=== PATIENT | male | born 1930 | race Hispanic/Latino ===

== ENCOUNTER 2017-01-26 11:47 | Emergency (ER) | payer MEDICARE ==
[2017-01-26 12:15] VITALS: TEMP 97.8
[2017-01-26] MEDS ORDERED: Sodium Chloride 0.9% 500 ML IV ONE ×2 (12:34→12:41)
--- NOTE | 2017-01-26 12:34 | C.PDOC ---
History Of Present Illness Pt is an 86 yr old male with PMHx of diabetes, prostate, HTN, dementia and brain shunt, brought in via BLS, presents to the ER s/p fall in the bathroom. Patient states he was taking a shower when his non slip mat slipped, and he fell to the ground and was unable to get up. Patient reports of pain to the inner left thigh and right elbow with an abrasion. Patient denies LOC, chest pain, SOB, nausea, vomiting, abdominal pain, diarrhea, headache, weakness or numbness. Pt did not hit his head. No neck pain. PMD: Doctor at the [facility] . 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 Cardiovascular: Negative for: Chest Pain Respiratory: Negative for: Shortness of Breath Gastrointestinal: Negative for: Nausea, Vomiting, Abdominal Pain, Diarrhea Musculoskeletal: Positive for: Other ((+) Right elbow pain. Left inner thigh pain. ) Neurological: Negative for: Weakness, Numbness, Headache Physical Exam - Physical Exam Appears: Non-toxic, No Acute Distress Skin: Warm, Dry, No Rash Head: Atraumatic, Normacephalic, No Tenderness Eye(s): bilateral: Normal Inspection, EOMI Ear(s): Bilateral: Normal Nose: Normal Oral Mucosa: Moist Tongue: Normal Appearing Lips: Normal Appearing Throat: Normal Neck: Normal, Normal ROM, No Midline Cervical Tenderness, Supple Lymphatic: Deferred Chest: Symmetrical, No Tenderness Cardiovascular: Rhythm Regular, No Murmur Respiratory: Normal Breath Sounds, No Rales, No Rhonchi, No Stridor, No Wheezing Extremity: Normal ROM, No Swelling, Other (Right Elbow - Abrasion; no bony tenderness; good ROM RUE; no neurovascular deficits. Left Inner Thigh - Contusion; no bony tenderness to LLE; ROM intact to LLE. Pelvis nontender ) Pulses: Left Radial: Normal, Right Radial: Normal Neurological/Psych: Oriented x3, Normal Speech, Normal Motor, Normal Sensation ED Course And Treatment - Laboratory Results Result Diagrams: 01/26/17 13:06 01/26/17 13:06 O2 Sat by Pulse Oximetry: 98 - Other Rad CXR X-Ray: Viewed By Me, Read By Radiologist Interpretation: PROCEDURE: CHEST RADIOGRAPH, 1 VIEW. HISTORY: Fall; part of trauma series imaging. COMPARISON: None available. FINDINGS: LUNGS: Mild venous congestion. Patchy left basilar airspace opacity. Right midlung atelectasis. PLEURA: No pneumothorax or pleural fluid seen. CARDIOVASCULAR: Cardiomegaly. OSSEOUS STRUCTURES: Degenerative changes. VISUALIZED UPPER ABDOMEN: Normal. OTHER FINDINGS: None. IMPRESSION: Mild venous congestion. Patchy left basilar airspace opacity. Right midlung atelectasis. X-Ray - Hip with Pelvis X-Ray: Viewed By Me, Read By Radiologist Interpretation: Pelvis and left hip two views. History: Fall. Comparison: None available. Findings: Left hip: Moderate degenerative changes at the left hip joint space with subchondral sclerosis and osteophytosis. Productive change and or ossific density seen superior to the left greater trochanter which may represent heterotopic bone versus avulsion injury, possibly chronic. Remainder of the proximal left femur appears grossly preserved without evidence of acute displaced fracture or dislocation. Degenerative changes are noted within the lower lumbar spine and right hip with some productive change at the right greater trochanter and bilateral pubic bones. Impression: Moderate degenerative changes at the left hip joint space with subchondral sclerosis and osteophytosis. Productive change and or ossific density seen superior to the left greater trochanter which may represent heterotopic bone versus avulsion injury, possibly chronic. Remainder of the proximal left femur appears grossly preserved without evidence of acute displaced fracture or dislocation. Degenerative changes are noted within the lower lumbar spine and right hip with some productive change at the right greater trochanter and bilateral pubic bones. If pain persists, consider MRI. - CT Scan/US CT - Pelvis Other Rad Studies (CT/US): Read By Radiologist, Radiology Report Reviewed CT/US Interpretation: CT bony pelvis. History: Blunt trauma. Evaluate for fracture. Comparison: X-ray dated 01/26/2017. Technique: Multiple contiguous axial images were performed through the bony pelvis without the use of intravenous contrast. Subsequently, sagittal and coronal reformatted images were obtained. This CT exam was performed using one or more of the following dose reduction techniques: Automated exposure control, adjustment of the mA and/ or kV according to patient size, and/or use of iterative reconstruction technique. Findings: Left hip: Moderate degenerative changes of the left hip joint space with joint space narrowing and subchondral sclerosis. 8 millimeter lobulated ossific density seen at the superior aspect of the left greater tuberosity which may represent heterotopic bone and or productive change versus small avulsion fragment. Osteophytosis at the medial left femoral head. No evidence of acute displaced fracture or dislocation of the remainder of the left proximal femur. Subchondral cyst formation and/or intraosseous geodes versus ganglion seen within the posterior left bony acetabulum. Left hip joint effusion noted. Incidentally noted is a prominent low-attenuation focus extending along the left iliopsoas tendon from the level of the muscle belly. This may represent a prominent iliopsoas bursitis. This would be better evaluated with MRI if clinically indicated. Evaluation of the remainder of the bony pelvis demonstrates severe degenerative changes at the L5-S1 disc space with joint space narrowing, subchondral sclerosis, and osteophytosis. Posterior disc osteophyte complex at the L5-S1 level. Mild angulation noted at the level of the coccyx. Evaluation of the right hip demonstrates moderate degenerative changes of the right hip with joint space narrowing and subchondral sclerosis. Associated osteophytosis. Heterotopic bone posterior to the proximal right femur. No evidence of acute displaced fracture dislocation in the remainder of the bony pelvis. Mild patchy sclerosis noted at the bilateral SI joints. At the level of the right iliopsoas tendon, there is an additional milder low-attenuation collection noted extending from the muscle belly along the distal tendon which may also represent a smaller iliopsoas bursitis. Again this would be better evaluated with MRI. Colonic diverticulosis is noted. Prominent and heterogeneous prostate with associated calcifications which measures up to 5 centimeters. Tubing and or wiring projects over the right lower abdomen extending into the intra-abdominal cavity , clinical correlation. Calcification and plaque within the aorta and iliac vessels. Impression: 1. Moderate degenerative changes of the left hip joint space with joint space narrowing and subchondral sclerosis. 8 millimeter lobulated ossific density seen at the superior aspect of the left greater tuberosity which may represent heterotopic bone and or productive change versus small avulsion fragment. Osteophytosis at the medial left femoral head. No evidence of acute displaced fracture or dislocation of the remainder of the left proximal femur. Subchondral cyst formation versus intraosseous geode and or ganglion seen within the posterior left bony acetabulum. Left hip joint effusion noted. Correlation with MRI may be helpful if clinically indicated. 2. Incidentally noted is a prominent low-attenuation focus extending along the left iliopsoas tendon from the level of the muscle belly. This may represent a prominent iliopsoas bursitis. This would be better evaluated with MRI if clinically indicated. 3. Severe degenerative changes at the L5-S1 disc space with joint space narrowing, subchondral sclerosis, and osteophytosis. Posterior disc osteophyte complex at the L5-S1 level. Mild angulation noted at the level of the coccyx. 4. Moderate degenerative changes of the right hip with joint space narrowing and subchondral sclerosis. Associated osteophytosis. Productive and or heterotopic bone adjacent to the posterior proximal femur. 5. At the level of the right iliopsoas tendon, there is an additional milder low-attenuation collection noted extending from the muscle belly along the distal tendon which may also represent a smaller iliopsoas bursitis. Again this would be better evaluated with MRI. 6. Tubing and or wiring projects over the right lower abdomen extending into the intra-abdominal cavity, clinical correlation. 7. Additional findings as above. Medical Decision Making Medical Decision Making: INITIAL IMPRESSION: Fall (from slipping) r/o LE fx or pelvis fx PLAN: * CT - Pelvis * X-Ray - Hip with Pelvis * CXR * EKG * Troponin * CBC * Urinalysis * Motrin PO * Tetanus IV * Sodium Chloride IV NOTE: 4:54 PM - Pt feels better. No fx on pelvic CT. No elbow fx. Will d/c home. Disposition Counseled Patient/Family Regarding: Studies Performed, Diagnosis, Need For Followup - Disposition Disposition: HOME/ ROUTINE Disposition Time: 16:54 Condition: IMPROVED Additional Instructions: Mr. Yoon, thank you for letting us take care of you today. Return to the ER if your symptoms worsen, or if any problems. Take Tylenol or Motrin at home for any pain. Follow up with your primary care physician (Dr. Crowder) next week for a re- evaluation. Prescriptions: Acetaminophen [Tylenol 325mg tab] 2 tab PO Q6 PRN #40 tab PRN Reason: Pain, Moderate (4-7) Instructions: Fall Prevention for Older Adults (GEN), Contusion in Adults (ED) Forms: General Discharge Instructions Print Language: CROATIAN - Clinical Impression Clinical Impression: Contusion, Fall - Scribe Statement The provider has reviewed the documentation as recorded by the Petrosibe Adilene Briones Provider Attestation: All medical record entries made by the Lisa were at my direction and personally dictated by me. I have reviewed the chart and agree that the record accurately reflects my personal performance of the history, physical exam, medical decision making, and the department course for this patient. I have also personally directed, reviewed, and agree with the discharge instructions and disposition.
[2017-01-26 13:14] LABS: BASO % 0.5 % (0.0-2.0); EOS % 0.5 % (0.0-4.0); HEMATOCRIT 40.8 % (35.0-51.0); LYMPH # 1.2 K/uL (1.0-4.3); LYMPH % 18.2 % (20.0-40.0); MEAN CELL VOLUME 82.2 fL (80.0-94.0); MEAN CORPUSCULAR HEMOGLOBIN 27.1 pg (27.0-31.0); MEAN CORPUSCULAR HGB CONC 32.9 g/dL (33.0-37.0); MEAN PLATELET VOLUME 9.6 fL (7.2-11.7); MONO # 0.6 K/uL (0.0-0.8); RED CELL DISTRIBUTION WIDTH 14.1 % (11.5-14.5); WHITE BLOOD COUNT 6.4 K/uL (4.8-10.8)
[2017-01-26 13:22] LABS: INR 0.9
[2017-01-26 13:25] LABS: CHLORIDE 98 mmol/L (98-107); POTASSIUM 4.2 mmol/L (3.6-5.2); SODIUM 138 mmol/L (132-148)
[2017-01-26 13:27] LABS: CARBON DIOXIDE 23 mmol/L (22-30); GFR AFRICAN-AMERICAN > 60
[2017-01-26 13:28] LABS: ALKALINE PHOSPHATASE 69 U/L (38-126); ALT/SGPT 18 U/L (21-72); AST/SGOT 15 U/L (17-59); BLOOD UREA NITROGEN 15 mg/dL (9-20); CALCIUM 9.2 mg/dl (8.6-10.4); GLUCOSE,RANDOM 123 mg/dL (75-110)
[2017-01-26 13:29] LABS: ALB/GLOB RATIO 1.8 (1.0-2.1); TOTAL PROTEIN 7.3 g/dL (6.3-8.3)
--- NOTE | 2017-01-26 13:38 | RAD ---
PROCEDURE: CHEST RADIOGRAPH, 1 VIEW HISTORY: Fall; part of trauma series imaging COMPARISON: None available. FINDINGS: LUNGS: Mild venous congestion. Patchy left basilar airspace opacity. Right midlung atelectasis. PLEURA: No pneumothorax or pleural fluid seen. CARDIOVASCULAR: Cardiomegaly. OSSEOUS STRUCTURES: Degenerative changes. VISUALIZED UPPER ABDOMEN: Normal. OTHER FINDINGS: None. IMPRESSION: Mild venous congestion. Patchy left basilar airspace opacity. Right midlung atelectasis.
--- NOTE | 2017-01-26 13:44 | RAD ---
Pelvis and left hip two views History: Fall. Comparison: None available. Findings: Left hip: Moderate degenerative changes at the left hip joint space with subchondral sclerosis and osteophytosis. Productive change and or ossific density seen superior to the left greater trochanter which may represent heterotopic bone versus avulsion injury, possibly chronic. Remainder of the proximal left femur appears grossly preserved without evidence of acute displaced fracture or dislocation. Degenerative changes are noted within the lower lumbar spine and right hip with some productive change at the right greater trochanter and bilateral pubic bones. Impression: Moderate degenerative changes at the left hip joint space with subchondral sclerosis and osteophytosis. Productive change and or ossific density seen superior to the left greater trochanter which may represent heterotopic bone versus avulsion injury, possibly chronic. Remainder of the proximal left femur appears grossly preserved without evidence of acute displaced fracture or dislocation. Degenerative changes are noted within the lower lumbar spine and right hip with some productive change at the right greater trochanter and bilateral pubic bones. If pain persists, consider MRI.
--- NOTE | 2017-01-26 16:43 | CT ---
CT bony pelvis History: Blunt trauma. Evaluate for fracture. Comparison: X-ray dated 01/26/2017 Technique: Multiple contiguous axial images were performed through the bony pelvis without the use of intravenous contrast. Subsequently, sagittal and coronal reformatted images were obtained. This CT exam was performed using one or more of the following dose reduction techniques: Automated exposure control, adjustment of the mA and/or kV according to patient size, and/or use of iterative reconstruction technique. Findings: Left hip: Moderate degenerative changes of the left hip joint space with joint space narrowing and subchondral sclerosis. 8 millimeter lobulated ossific density seen at the superior aspect of the left greater tuberosity which may represent heterotopic bone and or productive change versus small avulsion fragment. Osteophytosis at the medial left femoral head. No evidence of acute displaced fracture or dislocation of the remainder of the left proximal femur. Subchondral cyst formation and/or intraosseous geodes versus ganglion seen within the posterior left bony acetabulum. Left hip joint effusion noted. Incidentally noted is a prominent low-attenuation focus extending along the left iliopsoas tendon from the level of the muscle belly. This may represent a prominent iliopsoas bursitis. This would be better evaluated with MRI if clinically indicated. Evaluation of the remainder of the bony pelvis demonstrates severe degenerative changes at the L5-S1 disc space with joint space narrowing, subchondral sclerosis, and osteophytosis. Posterior disc osteophyte complex at the L5-S1 level. Mild angulation noted at the level of the coccyx. Evaluation of the right hip demonstrates moderate degenerative changes of the right hip with joint space narrowing and subchondral sclerosis. Associated osteophytosis. Heterotopic bone posterior to the proximal right femur. No evidence of acute displaced fracture dislocation in the remainder of the bony pelvis. Mild patchy sclerosis noted at the bilateral SI joints. At the level of the right iliopsoas tendon, there is an additional milder low-attenuation collection noted extending from the muscle belly along the distal tendon which may also represent a smaller iliopsoas bursitis. Again this would be better evaluated with MRI. Colonic diverticulosis is noted. Prominent and heterogeneous prostate with associated calcifications which measures up to 5 centimeters. Tubing and or wiring projects over the right lower abdomen extending into the intra-abdominal cavity, clinical correlation. Calcification and plaque within the aorta and iliac vessels. Impression: 1. Moderate degenerative changes of the left hip joint space with joint space narrowing and subchondral sclerosis. 8 millimeter lobulated ossific density seen at the superior aspect of the left greater tuberosity which may represent heterotopic bone and or productive change versus small avulsion fragment. Osteophytosis at the medial left femoral head. No evidence of acute displaced fracture or dislocation of the remainder of the left proximal femur. Subchondral cyst formation versus intraosseous geode and or ganglion seen within the posterior left bony acetabulum. Left hip joint effusion noted. Correlation with MRI may be helpful if clinically indicated. 2. Incidentally noted is a prominent low-attenuation focus extending along the left iliopsoas tendon from the level of the muscle belly. This may represent a prominent iliopsoas bursitis. This would be better evaluated with MRI if clinically indicated. 3. Severe degenerative changes at the L5-S1 disc space with joint space narrowing, subchondral sclerosis, and osteophytosis. Posterior disc osteophyte complex at the L5-S1 level. Mild angulation noted at the level of the coccyx. 4. Moderate degenerative changes of the right hip with joint space narrowing and subchondral sclerosis. Associated osteophytosis. Productive and or heterotopic bone adjacent to the posterior proximal femur. 5. At the level of the right iliopsoas tendon, there is an additional milder low-attenuation collection noted extending from the muscle belly along the distal tendon which may also represent a smaller iliopsoas bursitis. Again this would be better evaluated with MRI. 6. Tubing and or wiring projects over the right lower abdomen extending into the intra-abdominal cavity, clinical correlation. 7. Additional findings as above.
[2017-01-26 17:13] LABS: RBC URINE < 1 /hpf (0-3); URINE BILIRUBIN NEGATIVE (NEGATIVE); URINE BLOOD NEGATIVE (NEGATIVE); URINE COLOR Yellow (YELLOW); URINE GLUCOSE (UA) NORMAL (Normal); URINE KETONE NEGATIVE (NEGATIVE); URINE LEUKOCYTE ESTERASE NEG Leu/uL (Negative); URINE PROTEIN 1+ mg/dL (NEGATIVE); URINE UROBILINOGEN NORMAL mg/dL (0.2-1.0); WBC URINE < 1 /hpf (0-5)
[2017-01-26 17:34] VITALS: BP 166/87; PULSE 87; RESP 18
--- NOTE | 2017-01-27 11:19 | RAD ---
PROCEDURE: Radiographs of the right elbow. HISTORY: Fall r/o fracture COMPARISON: No prior. FINDINGS: BONES: Normal. No fracture. JOINTS: Normal. No osteoarthritis. SOFT TISSUES: Normal. JOINT EFFUSION: None. OTHER FINDINGS: None. IMPRESSION: Unremarkable radiographs of the right elbow.
--- NOTE | 2017-01-30 12:29 | CARD ---
APPROVED REPORT EKG Measurement Heart [id number] <Conclusion> Sinus rhythm with marked sinus arrhythmia with 1st degree AV block Otherwise normal ECG
[2017-02-01 17:10] VITALS: O2SAT 98
== END 2017-01-26 17:54 | disposition home or self-care (01) ==
LOC: C.ER 11:47
DX: S70.12XA Contusion of left thigh, initial encounter (principal); S50.311A Abrasion of right elbow, initial encounter; W18.2XXA Fall in (into) shower or empty bathtub, initial encounter; Y93.E1 Activity, personal bathing and showering
CPT/HCPCS: 71010; 72192; 73080; 73502; 80053; 81001; 82550; 84484; 85025; 85610; 85730; 90471; 90715; 96374; 99285; J2060; J7040

== ENCOUNTER 2017-12-01 10:18 | Inpatient (IN) | payer MEDICARE, BC ==
[2017-12-01 10:22] VITALS: BMI 21.5
[2017-12-01] MEDS ORDERED: Sodium Chloride 0.9% 1,000 ML IV STA (10:39)
[2017-12-01 10:54] LABS: ARTERIAL BLOOD GAS HCO3 26.2 mmol/L (21-28); ARTERIAL BLOOD GAS O2 SAT 100.1 % (95-98); ARTERIAL BLOOD GAS PCO2 33 mm/Hg (35-45); ARTERIAL BLOOD GAS PH 7.48 (7.35-7.45); ARTERIAL BLOOD GAS PO2 334 mm/Hg (80-100); ARTERIAL BLOOD GAS TCO2 25.6 mmol/L (22-28)
[2017-12-01 11:15] LABS: BASO % 0.2 % (0.0-2.0); HEMOGLOBIN 9.9 g/dL (12.0-18.0); LYMPH # 0.3 K/uL (1.0-4.3); LYMPH % 2.5 % (20.0-40.0); MEAN CELL VOLUME 82.4 fL (80.0-94.0); MEAN CORPUSCULAR HGB CONC 32.8 g/dL (33.0-37.0); MONO # 0.3 K/uL (0.0-0.8); MONO % 3.2 % (0.0-10.0); NEUT # 9.6 K/uL (1.8-7.0); NEUT % 94.1 % (50.0-75.0); PLATELET COUNT 205 K/uL (130-400); RBC 3.68 Mil/uL (4.40-5.90); RED CELL DISTRIBUTION WIDTH 16.2 % (11.5-14.5); WHITE BLOOD COUNT 10.2 K/uL (4.8-10.8)
[2017-12-01 11:27] LABS: ALBUMIN 2.8 g/dL (3.5-5.0); ALT/SGPT 31 U/L (21-72); AST/SGOT 9 U/L (17-59); BLOOD UREA NITROGEN 29 mg/dL (9-20); CALCIUM 7.5 mg/dl (8.6-10.4); GFR AFRICAN-AMERICAN > 60; GFR NON-AFRICAN AMERICAN > 60; MAGNESIUM 1.8 mg/dL (1.6-2.3)
[2017-12-01 11:38] LABS: URINE BILIRUBIN NEGATIVE (NEGATIVE); URINE BLOOD NEGATIVE (NEGATIVE); URINE CLARITY Hazy (Clear); URINE COLOR Yellow (YELLOW); URINE GLUCOSE (UA) 3+ mg/dL (Normal); URINE LEUKOCYTE ESTERASE NEG Leu/uL (Negative); URINE NITRATE NEGATIVE (NEGATIVE); URINE PROTEIN 1+ mg/dL (NEGATIVE)
[2017-12-01 11:39] LABS: B-TYPE NATRIURETIC PEPTIDE 8820 pg/mL (0-900)
[2017-12-01 11:47] LABS: BANDS 18 % (0-2); LYMPHOCYTE 2 % (20-40); MONOCYTE 6 % (0-10); NEUTROPHIL 74 % (50-75); PLATELET ESTIMATE NORMAL (NORMAL); TOTAL CELLS COUNTED 100
[2017-12-01 11:48] LABS: ANISOCYTOSIS SLIGHT; HYPOCHROMIC SLIGHT; POIKILOCYTOSIS SLIGHT
[2017-12-01] MEDS ORDERED: Moxifloxacin IV 400mg/250ml NS 400 MG/250 ML BAG IVPB STA (11:56)
[2017-12-01] MEDS ORDERED: Vancomycin 1 GM 1 GM/250 ML BAG IVPB STA (11:57)
--- NOTE | 2017-12-01 11:59 | RAD ---
HISTORY: Sepsis Patient COMPARISON: Chest x-ray performed 01/26/17 TECHNIQUE: Chest, one view. FINDINGS: Examination limited by habitus. LUNGS: Mild bibasilar atelectasis. Central vascular prominence. Please note that chest x-ray has limited sensitivity for the detection of pulmonary masses. PLEURA: No significant pleural effusion identified. No definite pneumothorax . CARDIOVASCULAR: Cardiomegaly. Atherosclerotic calcifications. OSSEOUS STRUCTURES: Osseous demineralization. Degenerative changes. VISUALIZED UPPER ABDOMEN: Unremarkable. OTHER FINDINGS: None. IMPRESSION: Mild bibasilar atelectasis. Cardiomegaly. Central vascular prominence.
[2017-12-01] MEDS ORDERED: Vancomycin 1 gm/NS 200 ml 1 GM/200 ML BAG IVPB STA (12:37)
[2017-12-01] MEDS ORDERED: Lactated Ringer's 1,000 ML ONE (12:45)
[2017-12-01] MEDS ORDERED: Moxifloxacin IV 400mg/250ml NS 400 MG/250 ML BAG IVPB ONE (13:02)
[2017-12-01] MEDS ORDERED: Lactated Ringer's 1,000 ML IVB STA (13:52)
[2017-12-01 14:05] LABS: INR 1.15 (0.92-1.08); PROTHROMBIN TIME 12.9 SECONDS (9.7-12.2)
--- NOTE | 2017-12-01 14:56 | C.PDOC ---
Time Seen by Provider: 12/01/17 10:32 Chief Complaint (Nursing): Shortness Of Breath History Per: EMS, Other (NH papers) History/Exam Limitations: clinical condition Onset/Duration Of Symptoms: Unknown (today?) Current Symptoms Are (Timing): Still Present Severity: Severe Associated Symptoms: Fever, Other (Lethargy) Additional History Per: Skilled Nursing, Prior Records Past Medical History Reviewed: Historical Data, Nursing Documentation, Vital Signs Vital Signs: Last Vital Signs Temp 102.0 F H 12/01/17 14:36 Pulse 134 H 12/01/17 14:36 Resp 35 H 12/01/17 14:36 BP 87/54 L 12/01/17 14:36 Pulse Ox 100 12/01/17 14:36 - Medical History PMH: Atrial Fibrillation, Dementia, HTN Family History: States: Diabetes - Social History Hx Tobacco Use: No Hx Alcohol Use: No Hx Substance Use: No Review Of Systems Review Of Systems: ROS cannot be obtained secondary to pt's inabilty to answer questions. Physical Exam - Physical Exam Appears: In Acute Distress, Chronically Ill, Other (Lethargic) Skin: Normal Color, Warm, Dry Head: Atraumatic Oral Mucosa: Dry Neck: Normal ROM, Supple Cardiovascular: Rhythm Regular (tachycardia) Respiratory: No Accessory Muscle Use, Other (Equal breath sounds) Gastrointestinal/Abdominal: Soft, No Tenderness Extremity: Normal ROM Neurological/Psych: Eyes Open With Command, Other (Moving all extremities) Pain Response: Withdraws With Pain ED Course And Treatment - Laboratory Results Result Diagrams: 12/01/17 11:11 12/01/17 11:11 Lab Interpretation: Abnormal Interpretation Of Abnormal: Bandemia. Positive Troponin. ECG: Interpreted By Me, Viewed By Me ECG Rhythm: Sinus Tachycardia, Nonspecific Changes Rate From EC O2 Sat by Pulse Oximetry: 100 (On BiPAP) - Radiology CXR: Viewed By Me, Read By Radiologist CXR Interpretation: Yes: No Acute Disease, Cardiomegaly Progress - Interventions Interventions:: Observation, Intravenous fluid, Oxygen - Medications Administered Intravenous: Other (Abx) - Data Reviewed Data Reviewed: Lab, Diagnostic imaging, EKG, Old records - Patient Status Patient status: Partially improved, Critical - Critical Care Citical Care: Excluding Proc Time Critical Care Time: 60 minutes - Continuity of Care Discussed patient case with:: ED Nurse, PMD 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 Care - Patient Plan Patient Plan: Admission, ICU Disposition Discussed With .: Nicole Ochoa Comment: He accepted pt on his service. Doctor Will See Patient In The: Hospital - Disposition Disposition: HOSPITALIZED Disposition Time: 14:58 Condition: CRITICAL - Clinical Impression Clinical Impression: Sepsis, Fever, Bandemia, Lethargy, Dyspnea
--- NOTE | 2017-12-01 16:52 | CP.PCM.CON ---
<Dinesh Dickey - Last Filed: 12/01/17 19:05> History of Present Illness - History of Present Illness History of Present Illness: CCU Consult Note Patient is a 73 year-old male who presented on 12/01 with altered mental status and shortness of breath. He has a past medical history of diabetes mellitus type two, hypertension, dementia, and status post ventricular shunting. Surgical history includes a ventricular shunt. He denies any alcohol or drugs, and has a family history that is non-contributory. His allergies include penicillin, lisinopril, and tomato. He is currently receiving BiPAP and is arousable to sternal rub. He is currently febrile, hypotensive, tachypneic, tachycardic, and septic with an undetermined source of infection. In the ED he was given 2L of LR, Avelox IV 400mg, APAP 650mg PO, vancomycin 1g IV at 1442. ICU was consulted for probable septic shock. He was accepted to the service. Review of Systems - Review of Systems Review of Systems: per HPI Past Patient History - Past Social History Smoking Status: Never Smoked - CARDIAC Hx Atrial Fibrillation: Yes Hx Hypertension: Yes - NEUROLOGICAL Hx Dementia: Yes - HEENT Hx HEENT Problems: Yes Hx Cataracts: Yes - ENDOCRINE/METABOLIC Hx Endocrine Disorders: Yes Hx Diabetes Mellitus Type 2: Yes - MUSCULOSKELETAL/RHEUMATOLOGICAL Hx Musculoskeletal Disorders: Yes Hx Falls: Yes - GASTROINTESTINAL Hx Gastrointestinal Disorders: Yes Other/Comment: dysphagia - PSYCHIATRIC Hx Substance Use: No - SURGICAL HISTORY Hx Surgeries: Yes Other/Comment: 'SHUNT' - ANESTHESIA Hx Anesthesia Reactions: No Meds Allergies/Adverse Reactions: Allergies Allergy/AdvReac Type Severity Reaction Status Date / Time lisinopril Allergy Verified 12/01/17 10:28 Penicillins Allergy Verified 12/01/17 10:20 TOMATO Allergy Uncoded 01/26/17 12:02 Physical Exam - Constitutional Appears: Chronically Ill - Head Exam Head Exam: ATRAUMATIC, NORMAL INSPECTION - Eye Exam Eye Exam: EOMI Pupil Exam: NORMAL ACCOMODATION - ENT Exam ENT Exam: Mucous Membranes Moist - Respiratory Exam Respiratory Exam: Clear to Auscultation Bilateral, NORMAL BREATHING PATTERN - Cardiovascular Exam Cardiovascular Exam: Tachycardia - GI/Abdominal Exam GI & Abdominal Exam: Normal Bowel Sounds, Soft. absent: Distended, Tenderness - Extremities Exam Extremities exam: Negative for: joint swelling, tenderness - Neurological Exam Neurological exam: Alert, Oriented x3 - Skin Skin Exam: Dry, Intact, Normal Color, Warm Results - Vital Signs Recent Vital Signs: Last Vital Signs Temp 102.4 F H 12/01/17 15:59 Pulse 136 H 12/01/17 15:59 Resp 35 H 12/01/17 15:59 BP 116/62 12/01/17 15:59 Pulse Ox 100 12/01/17 15:59 - Labs Result Diagrams: 12/01/17 11:11 12/01/17 11:11 Labs: Laboratory Results - last 24 hr 12/01/17 12/01/17 12/01/17 10:22 10:45 11:11 WBC 10.2 D RBC 3.68 L Hgb 9.9 L D Hct 30.3 L MCV 82.4 MCH 27.0 MCHC 32.8 L RDW 16.2 H Plt Count 205 MPV 11.0 Neut % (Auto) 94.1 H Lymph % (Auto) 2.5 L [place] % (Auto) 3.2 Eos % (Auto) 0.0 Baso % (Auto) 0.2 Neut # (Auto) 9.6 H Lymph # (Auto) 0.3 L [place] # (Auto) 0.3 Eos # (Auto) 0.0 Baso # (Auto) 0.0 Neutrophils % (Manual) 74 Band Neutrophils % 18 H* Lymphocytes % (Manual) 2 L Monocytes % (Manual) 6 Platelet Estimate Normal Hypochromasia (manual) Slight Poikilocytosis (manual Slight Anisocytosis (manual) Slight PT INR APTT Puncture Site Lb pCO2 33 L pO2 334 H HCO3 26.2 ABG pH 7.48 H ABG Total CO2 25.6 ABG O2 Saturation 100.1 H ABG Base Excess 1.6 Parviz Test Na ABG Potassium 3.8 A-a O2 Difference 338.0 Respiratory Index 1.0 Sodium 143.0 Chloride 109.0 H Glucose 373 H Lactate 2.1 FiO2 100.0 Inspiratory BiPAP 14 Expiratory BiPAP 7 Crit Value Called To Dr johnston Crit Value Called By Cecil mcmullen [facility] Crit Value Read Back Y Blood Gas Notified Time 1055 Potassium Carbon Dioxide Anion Gap BUN Creatinine Est GFR ( Amer) Est GFR (Non-Af Amer) POC Glucose (mg/dL) 420 H* Random Glucose Calcium Phosphorus Magnesium Total Bilirubin AST ALT Alkaline Phosphatase Troponin I NT-Pro-B Natriuret Pep Total Protein Albumin Globulin Albumin/Globulin Ratio Arterial Blood Potassium 3.8 Urine Color Urine Clarity Urine pH Ur Specific [place] Urine Protein Urine Glucose (UA) Urine Ketones Urine Blood Urine Nitrate Urine Bilirubin Urine Urobilinogen Ur Leukocyte Esterase Urine WBC (Auto) 12/01/17 12/01/17 12/01/17 11:11 11:23 13:39 WBC RBC Hgb Hct MCV MCH MCHC RDW Plt Count MPV Neut % (Auto) Lymph % (Auto) [place] % (Auto) Eos % (Auto) Baso % (Auto) Neut # (Auto) Lymph # (Auto) [place] # (Auto) Eos # (Auto) Baso # (Auto) Neutrophils % (Manual) Band Neutrophils % Lymphocytes % (Manual) Monocytes % (Manual) Platelet Estimate Hypochromasia (manual) Poikilocytosis (manual Anisocytosis (manual) PT 12.9 H INR 1.15 H APTT 20 L Puncture Site pCO2 pO2 HCO3 ABG pH ABG Total CO2 ABG O2 Saturation ABG Base Excess Parviz Test ABG Potassium A-a O2 Difference Respiratory Index Sodium 138 Chloride 106 Glucose Lactate FiO2 Inspiratory BiPAP Expiratory BiPAP Crit Value Called To Crit Value Called By Crit Value Read Back Blood Gas Notified Time Potassium 3.5 L Carbon Dioxide 23 Anion Gap 13 BUN 29 H Creatinine 0.9 Est GFR ( Amer) > 60 Est GFR (Non-Af Amer) > 60 POC Glucose (mg/dL) Random Glucose 328 H Calcium 7.5 L Phosphorus 3.5 Magnesium 1.8 Total Bilirubin 0.8 AST 9 L ALT 31 Alkaline Phosphatase 67 Troponin I 0.1960 H* NT-Pro-B Natriuret Pep 8820 H Total Protein 5.5 L Albumin 2.8 L D Globulin 2.7 Albumin/Globulin Ratio 1.0 Arterial Blood Potassium Urine Color Yellow Urine Clarity Hazy Urine pH 5.0 Ur Specific [place] 1.021 Urine Protein 1+ H Urine Glucose (UA) 3+ H Urine Ketones Negative Urine Blood Negative Urine Nitrate Negative Urine Bilirubin Negative Urine Urobilinogen 2.0 Ur Leukocyte Esterase Neg Urine WBC (Auto) 2 Assessment & Plan - Assessment and Plan (Free Text) Assessment: 87M Respiratory distress <Niranjan Ochoa - Last Filed: 12/01/17 20:08> Meds - Medications Medications: Current Medications Acyclovir 500 mg/ Sodium (Chloride) 100 mls @ 100 mls/hr IV Q8H [facility] Aztreonam 2 gm/ Sodium (Chloride) 100 mls @ 100 mls/hr IVPB Q8H [facility] Moxifloxacin HCl (Avelox Iv 400mg/250ml Ns) 400 mg in 250 mls @ 167 mls/hr IVPB Q24H [facility] Vancomycin/Sodium Chloride (Vancomycin 1 Gm/Ns 200 Ml) 1 gm in 200 mls @ 133 mls/hr IVPB Q24H [facility] Stop: 12/07/17 15:01 Results - Vital Signs Recent Vital Signs: Last Vital Signs Temp 102.4 F H 12/01/17 15:59 Pulse 137 H 12/01/17 19:21 Resp 32 H 12/01/17 18:20 BP 97/55 L 12/01/17 18:20 Pulse Ox 98 12/01/17 18:20 - Labs Result Diagrams: 12/01/17 11:11 12/01/17 11:11 Labs: Laboratory Results - last 24 hr 12/01/17 12/01/17 12/01/17 10:22 10:45 11:11 WBC 10.2 D RBC 3.68 L Hgb 9.9 L D Hct 30.3 L MCV 82.4 MCH 27.0 MCHC 32.8 L RDW 16.2 H Plt Count 205 MPV 11.0 Neut % (Auto) 94.1 H Lymph % (Auto) 2.5 L [place] % (Auto) 3.2 Eos % (Auto) 0.0 Baso % (Auto) 0.2 Neut # (Auto) 9.6 H Lymph # (Auto) 0.3 L [place] # (Auto) 0.3 Eos # (Auto) 0.0 Baso # (Auto) 0.0 Neutrophils % (Manual) 74 Band Neutrophils % 18 H* Lymphocytes % (Manual) 2 L Monocytes % (Manual) 6 Platelet Estimate Normal Hypochromasia (manual) Slight Poikilocytosis (manual Slight Anisocytosis (manual) Slight PT INR APTT Puncture Site Lb pCO2 33 L pO2 334 H HCO3 26.2 ABG pH 7.48 H ABG Total CO2 25.6 ABG O2 Saturation 100.1 H ABG Base Excess 1.6 Parviz Test Na ABG Potassium 3.8 A-a O2 Difference 338.0 Respiratory Index 1.0 Sodium 143.0 Chloride 109.0 H Glucose 373 H Lactate 2.1 FiO2 100.0 Inspiratory BiPAP 14 Expiratory BiPAP 7 Crit Value Called To Dr johnston Crit Value Called By Cecil mcmullen [facility] Crit Value Read Back Y Blood Gas Notified Time 1055 Potassium Carbon Dioxide Anion Gap BUN Creatinine Est GFR ( Amer) Est GFR (Non-Af Amer) POC Glucose (mg/dL) 420 H* Random Glucose Calcium Phosphorus Magnesium Total Bilirubin AST ALT Alkaline Phosphatase Troponin I NT-Pro-B Natriuret Pep Total Protein Albumin Globulin Albumin/Globulin Ratio Arterial Blood Potassium 3.8 Urine Color Urine Clarity Urine pH Ur Specific [place] Urine Protein Urine Glucose (UA) Urine Ketones Urine Blood Urine Nitrate Urine Bilirubin Urine Urobilinogen Ur Leukocyte Esterase Urine WBC (Auto) 12/01/17 12/01/17 12/01/17 11:11 11:23 13:39 WBC RBC Hgb Hct MCV MCH MCHC RDW Plt Count MPV Neut % (Auto) Lymph % (Auto) [place] % (Auto) Eos % (Auto) Baso % (Auto) Neut # (Auto) Lymph # (Auto) [place] # (Auto) Eos # (Auto) Baso # (Auto) Neutrophils % (Manual) Band Neutrophils % Lymphocytes % (Manual) Monocytes % (Manual) Platelet Estimate Hypochromasia (manual) Poikilocytosis (manual Anisocytosis (manual) PT 12.9 H INR 1.15 H APTT 20 L Puncture Site pCO2 pO2 HCO3 ABG pH ABG Total CO2 ABG O2 Saturation ABG Base Excess Parviz Test ABG Potassium A-a O2 Difference Respiratory Index Sodium 138 Chloride 106 Glucose Lactate FiO2 Inspiratory BiPAP Expiratory BiPAP Crit Value Called To Crit Value Called By Crit Value Read Back Blood Gas Notified Time Potassium 3.5 L Carbon Dioxide 23 Anion Gap 13 BUN 29 H Creatinine 0.9 Est GFR ( Amer) > 60 Est GFR (Non-Af Amer) > 60 POC Glucose (mg/dL) Random Glucose 328 H Calcium 7.5 L Phosphorus 3.5 Magnesium 1.8 Total Bilirubin 0.8 AST 9 L ALT 31 Alkaline Phosphatase 67 Troponin I 0.1960 H* NT-Pro-B Natriuret Pep 8820 H Total Protein 5.5 L Albumin 2.8 L D Globulin 2.7 Albumin/Globulin Ratio 1.0 Arterial Blood Potassium Urine Color Yellow Urine Clarity Hazy Urine pH 5.0 Ur Specific [place] 1.021 Urine Protein 1+ H Urine Glucose (UA) 3+ H Urine Ketones Negative Urine Blood Negative Urine Nitrate Negative Urine Bilirubin Negative Urine Urobilinogen 2.0 Ur Leukocyte Esterase Neg Urine WBC (Auto) 2 Assessment & Plan - Assessment and Plan (Free Text) Assessment: 87 y/o male with pmx of hydrocephalus requiring a shunt who was recently admitted to [facility] for respiratory distress. Patient was trasnferred to [facility] and brought back to [facility] for same complaint. -Respiratory distress: clinically patient is non-verbal (baseline for 2 months as per ), CXR reveals no VQ mismatch, FiO2 30%, with good ventilation. Patient seems drowsy and is slightly more awake compared to iniital presentation. utox pending, aspiration precautions -Sepsis: left shift with fevers and AMS: cannot rule out meningitis without LP, however patient's uncontrolled A-fi/flutter does not allow for LP at present moment, will start broad spectrum abx, pa culture, and serial lactic -AMS: obtain CT head, EEG, neurology eval to r/o NPH -keep NPO -CAD/NSTEMI/P. A-fib./flutter: will benfit from serial trop, asa, statin and av ricardo sagar as BP tolerated, obtain cardiology eval, and echo, monitor to keep MAP >65 -bgm q6hrs, novalog q6hrs -pud ppx pepcid -DVT ppx heparin Patient's history is not available and at bedside not able to provide any details. Prognosis guarded cc time 45 minutes - Date & Time Date: 12/01/17 Time: 19:58
--- NOTE | 2017-12-01 17:59 | CP.PCM.HP ---
Past Patient History - Past Social History Smoking Status: Never Smoked - CARDIAC Hx Atrial Fibrillation: Yes Hx Hypertension: Yes - NEUROLOGICAL Hx Dementia: Yes - HEENT Hx HEENT Problems: Yes Hx Cataracts: Yes - ENDOCRINE/METABOLIC Hx Endocrine Disorders: Yes Hx Diabetes Mellitus Type 2: Yes - MUSCULOSKELETAL/RHEUMATOLOGICAL Hx Musculoskeletal Disorders: Yes Hx Falls: Yes - GASTROINTESTINAL Hx Gastrointestinal Disorders: Yes Other/Comment: dysphagia - PSYCHIATRIC Hx Substance Use: No - SURGICAL HISTORY Hx Surgeries: Yes Other/Comment: 'SHUNT' - ANESTHESIA Hx Anesthesia Reactions: No Meds Allergies/Adverse Reactions: Allergies Allergy/AdvReac Type Severity Reaction Status Date / Time lisinopril Allergy Verified 12/01/17 10:28 Penicillins Allergy Verified 12/01/17 10:20 TOMATO Allergy Uncoded 01/26/17 12:02 Physical Exam - Constitutional Appears: Well - Head Exam Head Exam: ATRAUMATIC, NORMAL INSPECTION, NORMOCEPHALIC - Eye Exam Eye Exam: EOMI, Normal appearance, PERRL Pupil Exam: NORMAL ACCOMODATION, PERRL - ENT Exam ENT Exam: Mucous Membranes Moist, Normal Exam - Neck Exam Neck exam: Positive for: Normal Inspection - Respiratory Exam Respiratory Exam: Decreased Breath Sounds - Cardiovascular Exam Cardiovascular Exam: REGULAR RHYTHM, +S1, +S2 - GI/Abdominal Exam GI & Abdominal Exam: Diminished Bowel Sounds, Soft - Rectal Exam Rectal Exam: Deferred Results - Vital Signs Recent Vital Signs: Last Vital Signs Temp 102.4 F H 12/01/17 15:59 Pulse 138 H 12/01/17 16:35 Resp 35 H 12/01/17 15:59 BP 116/62 12/01/17 15:59 Pulse Ox 100 12/01/17 15:59 - Labs Result Diagrams: 12/01/17 11:11 12/01/17 20:48 Labs: Laboratory Results - last 24 hr 12/01/17 12/01/17 12/01/17 10:22 10:45 11:11 WBC 10.2 D RBC 3.68 L Hgb 9.9 L D Hct 30.3 L MCV 82.4 MCH 27.0 MCHC 32.8 L RDW 16.2 H Plt Count 205 MPV 11.0 Neut % (Auto) 94.1 H Lymph % (Auto) 2.5 L [place] % (Auto) 3.2 Eos % (Auto) 0.0 Baso % (Auto) 0.2 Neut # (Auto) 9.6 H Lymph # (Auto) 0.3 L [place] # (Auto) 0.3 Eos # (Auto) 0.0 Baso # (Auto) 0.0 Neutrophils % (Manual) 74 Band Neutrophils % 18 H* Lymphocytes % (Manual) 2 L Monocytes % (Manual) 6 Platelet Estimate Normal Hypochromasia (manual) Slight Poikilocytosis (manual Slight Anisocytosis (manual) Slight PT INR APTT Puncture Site Lb pCO2 33 L pO2 334 H HCO3 26.2 ABG pH 7.48 H ABG Total CO2 25.6 ABG O2 Saturation 100.1 H ABG Base Excess 1.6 Parviz Test Na ABG Potassium 3.8 A-a O2 Difference 338.0 Respiratory Index 1.0 Sodium 143.0 Chloride 109.0 H Glucose 373 H Lactate 2.1 FiO2 100.0 Inspiratory BiPAP 14 Expiratory BiPAP 7 Crit Value Called To Dr johnston Crit Value Called By Cecil mcmullen [facility] Crit Value Read Back Y Blood Gas Notified Time 1055 Potassium Carbon Dioxide Anion Gap BUN Creatinine Est GFR ( Amer) Est GFR (Non-Af Amer) POC Glucose (mg/dL) 420 H* Random Glucose Calcium Phosphorus Magnesium Total Bilirubin AST ALT Alkaline Phosphatase Troponin I NT-Pro-B Natriuret Pep Total Protein Albumin Globulin Albumin/Globulin Ratio Arterial Blood Potassium 3.8 Urine Color Urine Clarity Urine pH Ur Specific [place] Urine Protein Urine Glucose (UA) Urine Ketones Urine Blood Urine Nitrate Urine Bilirubin Urine Urobilinogen Ur Leukocyte Esterase Urine WBC (Auto) 12/01/17 12/01/17 12/01/17 11:11 11:23 13:39 WBC RBC Hgb Hct MCV MCH MCHC RDW Plt Count MPV Neut % (Auto) Lymph % (Auto) [place] % (Auto) Eos % (Auto) Baso % (Auto) Neut # (Auto) Lymph # (Auto) [place] # (Auto) Eos # (Auto) Baso # (Auto) Neutrophils % (Manual) Band Neutrophils % Lymphocytes % (Manual) Monocytes % (Manual) Platelet Estimate Hypochromasia (manual) Poikilocytosis (manual Anisocytosis (manual) PT 12.9 H INR 1.15 H APTT 20 L Puncture Site pCO2 pO2 HCO3 ABG pH ABG Total CO2 ABG O2 Saturation ABG Base Excess Parviz Test ABG Potassium A-a O2 Difference Respiratory Index Sodium 138 Chloride 106 Glucose Lactate FiO2 Inspiratory BiPAP Expiratory BiPAP Crit Value Called To Crit Value Called By Crit Value Read Back Blood Gas Notified Time Potassium 3.5 L Carbon Dioxide 23 Anion Gap 13 BUN 29 H Creatinine 0.9 Est GFR ( Amer) > 60 Est GFR (Non-Af Amer) > 60 POC Glucose (mg/dL) Random Glucose 328 H Calcium 7.5 L Phosphorus 3.5 Magnesium 1.8 Total Bilirubin 0.8 AST 9 L ALT 31 Alkaline Phosphatase 67 Troponin I 0.1960 H* NT-Pro-B Natriuret Pep 8820 H Total Protein 5.5 L Albumin 2.8 L D Globulin 2.7 Albumin/Globulin Ratio 1.0 Arterial Blood Potassium Urine Color Yellow Urine Clarity Hazy Urine pH 5.0 Ur Specific [place] 1.021 Urine Protein 1+ H Urine Glucose (UA) 3+ H Urine Ketones Negative Urine Blood Negative Urine Nitrate Negative Urine Bilirubin Negative Urine Urobilinogen 2.0 Ur Leukocyte Esterase Neg Urine WBC (Auto) 2 Assessment & Plan (1) Bandemia Status: Acute (2) Dyspnea Status: Acute (3) Fever Status: Acute (4) Lethargy Status: Acute (5) Sepsis Status: Acute (6) Contusion Status: Acute (7) Fall Status: Acute - Assessment and Plan (Free Text) Plan: id consult azeotreonam iv vanco iv acyclovir carter as ordered could not leave message for as message box was full tried to reah yesterday poor prognosis pulm consult neuro consult mx as ordered
[2017-12-01] MEDS ORDERED: Digoxin 500 mcg/2ml (0.5 mg/2ml) Inj IVP ONE (18:58)
[2017-12-01] MEDS: Aztreonam 2 GM in Sodium Chloride 0.9% 100 ML IVPB SCH (20:00)
[2017-12-01] MEDS ORDERED: Potassium Chloride 20 mEq/15 ml LIQ UD PO ONE (20:15)
[2017-12-01] MEDS ORDERED: (Novolog) Insulin Aspart, Recombinant 100 u/ml 10 ml vial SC SCH (20:15)
[2017-12-01] MEDS: Acyclovir 500 MG in Sodium Chloride 0.9% 100 ML IV SCH (21:00)
[2017-12-01 21:08] LABS: BLOOD UREA NITROGEN 36 mg/dL (9-20); GFR AFRICAN-AMERICAN > 60; GFR NON-AFRICAN AMERICAN 57; MAGNESIUM 1.9 mg/dL (1.6-2.3)
[2017-12-01 21:17] LABS: ABG ALLEN TEST POS; ARTERIAL BLOOD GAS HCO3 25.8 mmol/L (21-28); ARTERIAL BLOOD GAS HEMOGLOBIN 9.3 g/dL (11.7-17.4); ARTERIAL BLOOD GAS O2 SAT 99.2 % (95-98); ARTERIAL BLOOD GAS PCO2 27 mm/Hg (35-45); ARTERIAL BLOOD GAS PH 7.54 (7.35-7.45); ARTERIAL BLOOD GAS PO2 86 mm/Hg (80-100); ARTERIAL BLOOD GAS TCO2 23.9 mmol/L (22-28)
[2017-12-01 21:28] LABS: B-TYPE NATRIURETIC PEPTIDE 10400 pg/mL (0-900)
[2017-12-01 21:46] LABS: BARBITURATES, UR NEGATIVE (NEGATIVE); BENZODIAZEPINES, UR NEGATIVE (NEGATIVE); OPIATES, UR NEGATIVE (NEGATIVE); PHENCYCLIDINE, UR NEGATIVE (NEGATIVE)
--- NOTE | 2017-12-01 22:14 | PCM.ANES ---
Anesthesia Emergent Intubation - Diagnosis Working Diagnosis:: Respiratory Failure, Sepsis - Consult Reason for Consult:: Respiratory Failure, Sepsis - Pre-Intubation Vital Signs Blood Pressure: 130/90 Heart Rate: 105 Respiratory Rate: 30 O2 Sat: 94 FIO2: 30 Oxygen Delivery Method: BiPAP Level Of Consciousness: Drowsy, Somnolent, Restless, Unable to follow directions Intubation Meds Given: Etomidate, Succinylcholine - Airway Management Oropharyngeal Area Suctioned: No Rapid Sequence: No - Method of Intubation Intubation Method: Oral ETT ETT Size: 7.5 Lipline@: 23 Easy: Yes Atramatic: Yes - Intubation Devices Kev Blade Size Used: 3 Isabella Forcepts Used: No Warren Scope Used: No Fiber Optic Scope: No - Placement Confirmation Breath Sounds Present & Equal Bilaterally: Yes Gurgling Sounds Not Audible at Epigastrum: Yes Positive EtCO2: Yes Portable CXR: Yes (per ICU) Recommendations: Ventilator - Post-Intubation Vital Signs Blood Pressure: 139/95 Heart Rate: 105 Respiratory Rate: 16 O2 Sat: 100 FIO2: 100
--- NOTE | 2017-12-01 22:59 | CP.CCUPN ---
CCU Subjective - Physician Review Events Since Last Encounter (Free Text): 12/01/17 22:58 pt tachypneic,tachycardic with worsening alkalosis intubated For Ct chest and head CCU Objective - Vital Signs / Intake & Output Vital Signs (Last 4 hours): Vital Signs Pulse Resp BP Pulse Ox 12/01/17 22:17 105 H 30 H 130/90 94 L 12/01/17 20:00 136 H 27 H 96 12/01/17 19:50 136 H 32 H 97 12/01/17 19:44 137 H 21 101/55 L 97 12/01/17 19:40 137 H 17 97 12/01/17 19:30 137 H 27 H 97 12/01/17 19:21 137 H 12/01/17 19:20 138 H 33 H 94 L 12/01/17 19:10 137 H 29 H 98 12/01/17 19:00 138 H 31 H 97 Intake and Output (Last 8hrs): Intake & Output 12/01/17 12/01/17 12/01/17 06:59 14:59 22:59 Weight 150 lb - Medications Active Medications: Active Medications Generic Name Dose Route Start Last Admin Trade Name Freq PRN Reason Stop Dose Admin Aspirin 81 mg 12/02/17 10:00 Aspirin Chewable PO DAILY [facility] Acyclovir 500 mg/ Sodium 100 mls @ 100 mls/hr 12/01/17 20:00 Chloride IV Q8H ANA Aztreonam 2 gm/ Sodium 100 mls @ 100 mls/hr 12/01/17 20:00 Chloride IVPB Q8H ANA Moxifloxacin HCl 400 mg in 250 mls @ 167 mls/hr 12/02/17 13:00 Avelox Iv 400mg/250ml Ns IVPB Q24H ANA Vancomycin/Sodium Chloride 1 gm in 200 mls @ 133 mls/hr 12/02/17 15:00 Vancomycin 1 Gm/Ns 200 Ml IVPB 12/07/17 15:01 Q24H [facility] Insulin Aspart 0 unit 12/02/17 00:00 Novolog SC Q6H [facility] Protocol Metoprolol Tartrate 12.5 mg 12/02/17 10:00 Lopressor GT BID ANA Rosuvastatin Calcium 5 mg 12/01/17 22:00 Crestor PO HS ANA - Patient Studies Lab Studies: Lab Studies 12/01/17 12/01/17 12/01/17 Range/Units 21:10 20:59 20:48 WBC (4.8-10.8) K/uL RBC (4.40-5.90) Mil/uL Hgb (12.0-18.0) g/dL Hct (35.0-51.0) % MCV (80.0-94.0) fL MCH (27.0-31.0) pg MCHC (33.0-37.0) g/dL RDW (11.5-14.5) % Plt Count (130-400) K/uL MPV (7.2-11.7) fL Neut % (Auto) (50.0-75.0) % Lymph % (Auto) (20.0-40.0) % [place] % (Auto) (0.0-10.0) % Eos % (Auto) (0.0-4.0) % Baso % (Auto) (0.0-2.0) % Neut # (Auto) (1.8-7.0) K/uL Lymph # (Auto) (1.0-4.3) K/uL [place] # (Auto) (0.0-0.8) K/uL Eos # (Auto) (0.0-0.7) K/uL Baso # (Auto) (0.0-0.2) K/uL Neutrophils % (Manual) (50-75) % Band Neutrophils % (0-2) % Lymphocytes % (Manual) (20-40) % Monocytes % (Manual) (0-10) % Platelet Estimate (NORMAL) Hypochromasia (manual) Poikilocytosis (manual Anisocytosis (manual) PT (9.7-12.2) SECONDS INR (0.92-1.08) APTT (21-34) SECONDS D-Dimer, Quantitative (0-243) ng/mlDDU Puncture Site Rra pCO2 27 L (35-45) mm/Hg pO2 86 (80-100) mm/Hg HCO3 25.8 (21-28) mmol/L ABG pH 7.54 H (7.35-7.45) ABG Total CO2 23.9 (22-28) mmol/L ABG O2 Saturation 99.2 H (95-98) % ABG Base Excess 1.1 (-2.0-3.0) mmol/L ABG Hemoglobin 9.3 L (11.7-17.4) g/dL ABG Carboxyhemoglobin 1.8 H (0.5-1.5) % POC ABG HHb (Measured) 0.8 (0.0-5.0) % ABG Methemoglobin 1.2 (0.0-3.0) % Parviz Test Pos ABG Potassium (3.6-5.2) mmol/L A-a O2 Difference 94.0 mm/Hg Respiratory Index 1.1 Hgb O2 Saturation 96.1 (95.0-98.0) % Sodium 142 (132-148) mmol/l Chloride 107 (98-107) mmol/L Glucose (75-110) mg/dl Lactate (0.7-2.1) mmol/L FiO2 30.0 % Inspiratory BiPAP 14 Expiratory BiPAP 7 Crit Value Called To Crit Value Called By Crit Value Read Back Blood Gas Notified Time Potassium 3.7 (3.6-5.2) mmol/L Carbon Dioxide 23 (22-30) mmol/L Anion Gap 16 (10-20) BUN 36 H (9-20) mg/dL Creatinine 1.2 (0.8-1.5) mg/dL Est GFR ( Amer) > 60 Est GFR (Non-Af Amer) 57 POC Glucose (mg/dL) (65-110) mg/dL Random Glucose 390 H (75-110) mg/dL Lactic Acid (0.7-2.1) mmol/L Calcium 8.0 L (8.6-10.4) mg/dl Phosphorus 2.9 (2.5-4.5) mg/dL Magnesium 1.9 (1.6-2.3) mg/dL Total Bilirubin (0.2-1.3) mg/dL AST (17-59) U/L ALT (21-72) U/L Alkaline Phosphatase (38-126) U/L Troponin I 0.2200 H* (0.00-0.120) ng/mL NT-Pro-B Natriuret Pep 60575 H (0-900) pg/mL Total Protein (6.3-8.3) g/dL Albumin (3.5-5.0) g/dL Globulin (2.2-3.9) gm/dL Albumin/Globulin Ratio (1.0-2.1) Arterial Blood Potassium (3.6-5.2) mmol/L Urine Color (YELLOW) Urine Clarity (Clear) Urine pH (5.0-8.0) Ur Specific [place] (1.003-1.030) Urine Protein (NEGATIVE) mg/dL Urine Glucose (UA) (Normal) mg/dL Urine Ketones (NEGATIVE) mg/dL Urine Blood (NEGATIVE) Urine Nitrate (NEGATIVE) Urine Bilirubin (NEGATIVE) Urine Urobilinogen (0.2-1.0) mg/dL Ur Leukocyte Esterase (Negative) Keyur/uL Urine WBC (Auto) (0-5) /hpf Urine Opiates Screen Negative (NEGATIVE) Urine Methadone Screen Negative (NEGATIVE) Ur Barbiturates Screen Negative (NEGATIVE) Ur Phencyclidine Scrn Negative (NEGATIVE) Ur Amphetamines Screen Negative (NEGATIVE) U Benzodiazepines Scrn Negative (NEGATIVE) U Oth Cocaine Metabols Negative (NEGATIVE) U Cannabinoids Screen Negative (NEGATIVE) 12/01/17 12/01/17 12/01/17 Range/Units 20:48 20:48 13:39 WBC (4.8-10.8) K/uL RBC (4.40-5.90) Mil/uL Hgb (12.0-18.0) g/dL Hct (35.0-51.0) % MCV (80.0-94.0) fL MCH (27.0-31.0) pg MCHC (33.0-37.0) g/dL RDW (11.5-14.5) % Plt Count (130-400) K/uL MPV (7.2-11.7) fL Neut % (Auto) (50.0-75.0) % Lymph % (Auto) (20.0-40.0) % [place] % (Auto) (0.0-10.0) % Eos % (Auto) (0.0-4.0) % Baso % (Auto) (0.0-2.0) % Neut # (Auto) (1.8-7.0) K/uL Lymph # (Auto) (1.0-4.3) K/uL [place] # (Auto) (0.0-0.8) K/uL Eos # (Auto) (0.0-0.7) K/uL Baso # (Auto) (0.0-0.2) K/uL Neutrophils % (Manual) (50-75) % Band Neutrophils % (0-2) % Lymphocytes % (Manual) (20-40) % Monocytes % (Manual) (0-10) % Platelet Estimate (NORMAL) Hypochromasia (manual) Poikilocytosis (manual Anisocytosis (manual) PT 12.9 H (9.7-12.2) SECONDS INR 1.15 H (0.92-1.08) APTT 20 L (21-34) SECONDS D-Dimer, Quantitative 2791 H (0-243) ng/mlDDU Puncture Site pCO2 (35-45) mm/Hg pO2 (80-100) mm/Hg HCO3 (21-28) mmol/L ABG pH (7.35-7.45) ABG Total CO2 (22-28) mmol/L ABG O2 Saturation (95-98) % ABG Base Excess (-2.0-3.0) mmol/L ABG Hemoglobin (11.7-17.4) g/dL ABG Carboxyhemoglobin (0.5-1.5) % POC ABG HHb (Measured) (0.0-5.0) % ABG Methemoglobin (0.0-3.0) % Parviz Test ABG Potassium (3.6-5.2) mmol/L A-a O2 Difference mm/Hg Respiratory Index Hgb O2 Saturation (95.0-98.0) % Sodium (132-148) mmol/l Chloride (98-107) mmol/L Glucose (75-110) mg/dl Lactate (0.7-2.1) mmol/L FiO2 % Inspiratory BiPAP Expiratory BiPAP Crit Value Called To Crit Value Called By Crit Value Read Back Blood Gas Notified Time Potassium (3.6-5.2) mmol/L Carbon Dioxide (22-30) mmol/L Anion Gap (10-20) BUN (9-20) mg/dL Creatinine (0.8-1.5) mg/dL Est GFR ( Amer) Est GFR (Non-Af Amer) POC Glucose (mg/dL) (65-110) mg/dL Random Glucose (75-110) mg/dL Lactic Acid 3.5 H (0.7-2.1) mmol/L Calcium (8.6-10.4) mg/dl Phosphorus (2.5-4.5) mg/dL Magnesium (1.6-2.3) mg/dL Total Bilirubin (0.2-1.3) mg/dL AST (17-59) U/L ALT (21-72) U/L Alkaline Phosphatase (38-126) U/L Troponin I (0.00-0.120) ng/mL NT-Pro-B Natriuret Pep (0-900) pg/mL Total Protein (6.3-8.3) g/dL Albumin (3.5-5.0) g/dL Globulin (2.2-3.9) gm/dL Albumin/Globulin Ratio (1.0-2.1) Arterial Blood Potassium (3.6-5.2) mmol/L Urine Color (YELLOW) Urine Clarity (Clear) Urine pH (5.0-8.0) Ur Specific [place] (1.003-1.030) Urine Protein (NEGATIVE) mg/dL Urine Glucose (UA) (Normal) mg/dL Urine Ketones (NEGATIVE) mg/dL Urine Blood (NEGATIVE) Urine Nitrate (NEGATIVE) Urine Bilirubin (NEGATIVE) Urine Urobilinogen (0.2-1.0) mg/dL Ur Leukocyte Esterase (Negative) Keyur/uL Urine WBC (Auto) (0-5) /hpf Urine Opiates Screen (NEGATIVE) Urine Methadone Screen (NEGATIVE) Ur Barbiturates Screen (NEGATIVE) Ur Phencyclidine Scrn (NEGATIVE) Ur Amphetamines Screen (NEGATIVE) U Benzodiazepines Scrn (NEGATIVE) U Oth Cocaine Metabols (NEGATIVE) U Cannabinoids Screen (NEGATIVE) 12/01/17 12/01/17 12/01/17 Range/Units 11:23 11:11 11:11 WBC 10.2 D (4.8-10.8) K/uL RBC 3.68 L (4.40-5.90) Mil/uL Hgb 9.9 L D (12.0-18.0) g/dL Hct 30.3 L (35.0-51.0) % MCV 82.4 (80.0-94.0) fL MCH 27.0 (27.0-31.0) pg MCHC 32.8 L (33.0-37.0) g/dL RDW 16.2 H (11.5-14.5) % Plt Count 205 (130-400) K/uL MPV 11.0 (7.2-11.7) fL Neut % (Auto) 94.1 H (50.0-75.0) % Lymph % (Auto) 2.5 L (20.0-40.0) % [place] % (Auto) 3.2 (0.0-10.0) % Eos % (Auto) 0.0 (0.0-4.0) % Baso % (Auto) 0.2 (0.0-2.0) % Neut # (Auto) 9.6 H (1.8-7.0) K/uL Lymph # (Auto) 0.3 L (1.0-4.3) K/uL [place] # (Auto) 0.3 (0.0-0.8) K/uL Eos # (Auto) 0.0 (0.0-0.7) K/uL Baso # (Auto) 0.0 (0.0-0.2) K/uL Neutrophils % (Manual) 74 (50-75) % Band Neutrophils % 18 H* (0-2) % Lymphocytes % (Manual) 2 L (20-40) % Monocytes % (Manual) 6 (0-10) % Platelet Estimate Normal (NORMAL) Hypochromasia (manual) Slight Poikilocytosis (manual Slight Anisocytosis (manual) Slight PT (9.7-12.2) SECONDS INR (0.92-1.08) APTT (21-34) SECONDS D-Dimer, Quantitative (0-243) ng/mlDDU Puncture Site pCO2 (35-45) mm/Hg pO2 (80-100) mm/Hg HCO3 (21-28) mmol/L ABG pH (7.35-7.45) ABG Total CO2 (22-28) mmol/L ABG O2 Saturation (95-98) % ABG Base Excess (-2.0-3.0) mmol/L ABG Hemoglobin (11.7-17.4) g/dL ABG Carboxyhemoglobin (0.5-1.5) % POC ABG HHb (Measured) (0.0-5.0) % ABG Methemoglobin (0.0-3.0) % Parviz Test ABG Potassium (3.6-5.2) mmol/L A-a O2 Difference mm/Hg Respiratory Index Hgb O2 Saturation (95.0-98.0) % Sodium 138 (132-148) mmol/l Chloride 106 (98-107) mmol/L Glucose (75-110) mg/dl Lactate (0.7-2.1) mmol/L FiO2 % Inspiratory BiPAP Expiratory BiPAP Crit Value Called To Crit Value Called By Crit Value Read Back Blood Gas Notified Time Potassium 3.5 L (3.6-5.2) mmol/L Carbon Dioxide 23 (22-30) mmol/L Anion Gap 13 (10-20) BUN 29 H (9-20) mg/dL Creatinine 0.9 (0.8-1.5) mg/dL Est GFR ( Amer) > 60 Est GFR (Non-Af Amer) > 60 POC Glucose (mg/dL) (65-110) mg/dL Random Glucose 328 H (75-110) mg/dL Lactic Acid (0.7-2.1) mmol/L Calcium 7.5 L (8.6-10.4) mg/dl Phosphorus 3.5 (2.5-4.5) mg/dL Magnesium 1.8 (1.6-2.3) mg/dL Total Bilirubin 0.8 (0.2-1.3) mg/dL AST 9 L (17-59) U/L ALT 31 (21-72) U/L Alkaline Phosphatase 67 (38-126) U/L Troponin I 0.1960 H* (0.00-0.120) ng/mL NT-Pro-B Natriuret Pep 8820 H (0-900) pg/mL Total Protein 5.5 L (6.3-8.3) g/dL Albumin 2.8 L D (3.5-5.0) g/dL Globulin 2.7 (2.2-3.9) gm/dL Albumin/Globulin Ratio 1.0 (1.0-2.1) Arterial Blood Potassium (3.6-5.2) mmol/L Urine Color Yellow (YELLOW) Urine Clarity Hazy (Clear) Urine pH 5.0 (5.0-8.0) Ur Specific [place] 1.021 (1.003-1.030) Urine Protein 1+ H (NEGATIVE) mg/dL Urine Glucose (UA) 3+ H (Normal) mg/dL Urine Ketones Negative (NEGATIVE) mg/dL Urine Blood Negative (NEGATIVE) Urine Nitrate Negative (NEGATIVE) Urine Bilirubin Negative (NEGATIVE) Urine Urobilinogen 2.0 (0.2-1.0) mg/dL Ur Leukocyte Esterase Neg (Negative) Keyur/uL Urine WBC (Auto) 2 (0-5) /hpf Urine Opiates Screen (NEGATIVE) Urine Methadone Screen (NEGATIVE) Ur Barbiturates Screen (NEGATIVE) Ur Phencyclidine Scrn (NEGATIVE) Ur Amphetamines Screen (NEGATIVE) U Benzodiazepines Scrn (NEGATIVE) U Oth Cocaine Metabols (NEGATIVE) U Cannabinoids Screen (NEGATIVE) 12/01/17 12/01/17 Range/Units 10:45 10:22 WBC (4.8-10.8) K/uL RBC (4.40-5.90) Mil/uL Hgb (12.0-18.0) g/dL Hct (35.0-51.0) % MCV (80.0-94.0) fL MCH (27.0-31.0) pg MCHC (33.0-37.0) g/dL RDW (11.5-14.5) % Plt Count (130-400) K/uL MPV (7.2-11.7) fL Neut % (Auto) (50.0-75.0) % Lymph % (Auto) (20.0-40.0) % [place] % (Auto) (0.0-10.0) % Eos % (Auto) (0.0-4.0) % Baso % (Auto) (0.0-2.0) % Neut # (Auto) (1.8-7.0) K/uL Lymph # (Auto) (1.0-4.3) K/uL [place] # (Auto) (0.0-0.8) K/uL Eos # (Auto) (0.0-0.7) K/uL Baso # (Auto) (0.0-0.2) K/uL Neutrophils % (Manual) (50-75) % Band Neutrophils % (0-2) % Lymphocytes % (Manual) (20-40) % Monocytes % (Manual) (0-10) % Platelet Estimate (NORMAL) Hypochromasia (manual) Poikilocytosis (manual Anisocytosis (manual) PT (9.7-12.2) SECONDS INR (0.92-1.08) APTT (21-34) SECONDS D-Dimer, Quantitative (0-243) ng/mlDDU Puncture Site Lb pCO2 33 L (35-45) mm/Hg pO2 334 H (80-100) mm/Hg HCO3 26.2 (21-28) mmol/L ABG pH 7.48 H (7.35-7.45) ABG Total CO2 25.6 (22-28) mmol/L ABG O2 Saturation 100.1 H (95-98) % ABG Base Excess 1.6 (-2.0-3.0) mmol/L ABG Hemoglobin (11.7-17.4) g/dL ABG Carboxyhemoglobin (0.5-1.5) % POC ABG HHb (Measured) (0.0-5.0) % ABG Methemoglobin (0.0-3.0) % Parviz Test Na ABG Potassium 3.8 (3.6-5.2) mmol/L A-a O2 Difference 338.0 mm/Hg Respiratory Index 1.0 Hgb O2 Saturation (95.0-98.0) % Sodium 143.0 (132-148) mmol/l Chloride 109.0 H (98-107) mmol/L Glucose 373 H (75-110) mg/dl Lactate 2.1 (0.7-2.1) mmol/L FiO2 100.0 % Inspiratory BiPAP 14 Expiratory BiPAP 7 Crit Value Called To Dr johnston Crit Value Called By Cecil mcmullen [facility] Crit Value Read Back Y Blood Gas Notified Time 1055 Potassium (3.6-5.2) mmol/L Carbon Dioxide (22-30) mmol/L Anion Gap (10-20) BUN (9-20) mg/dL Creatinine (0.8-1.5) mg/dL Est GFR ( Amer) Est GFR (Non-Af Amer) POC Glucose (mg/dL) 420 H* (65-110) mg/dL Random Glucose (75-110) mg/dL Lactic Acid (0.7-2.1) mmol/L Calcium (8.6-10.4) mg/dl Phosphorus (2.5-4.5) mg/dL Magnesium (1.6-2.3) mg/dL Total Bilirubin (0.2-1.3) mg/dL AST (17-59) U/L ALT (21-72) U/L Alkaline Phosphatase (38-126) U/L Troponin I (0.00-0.120) ng/mL NT-Pro-B Natriuret Pep (0-900) pg/mL Total Protein (6.3-8.3) g/dL Albumin (3.5-5.0) g/dL Globulin (2.2-3.9) gm/dL Albumin/Globulin Ratio (1.0-2.1) Arterial Blood Potassium 3.8 (3.6-5.2) mmol/L Urine Color (YELLOW) Urine Clarity (Clear) Urine pH (5.0-8.0) Ur Specific [place] (1.003-1.030) Urine Protein (NEGATIVE) mg/dL Urine Glucose (UA) (Normal) mg/dL Urine Ketones (NEGATIVE) mg/dL Urine Blood (NEGATIVE) Urine Nitrate (NEGATIVE) Urine Bilirubin (NEGATIVE) Urine Urobilinogen (0.2-1.0) mg/dL Ur Leukocyte Esterase (Negative) Keyur/uL Urine WBC (Auto) (0-5) /hpf Urine Opiates Screen (NEGATIVE) Urine Methadone Screen (NEGATIVE) Ur Barbiturates Screen (NEGATIVE) Ur Phencyclidine Scrn (NEGATIVE) Ur Amphetamines Screen (NEGATIVE) U Benzodiazepines Scrn (NEGATIVE) U Oth Cocaine Metabols (NEGATIVE) U Cannabinoids Screen (NEGATIVE) Laboratory Results - last 24 hr 12/01/17 12/01/17 12/01/17 10:22 10:45 11:11 WBC 10.2 D RBC 3.68 L Hgb 9.9 L D Hct 30.3 L MCV 82.4 MCH 27.0 MCHC 32.8 L RDW 16.2 H Plt Count 205 MPV 11.0 Neut % (Auto) 94.1 H Lymph % (Auto) 2.5 L [place] % (Auto) 3.2 Eos % (Auto) 0.0 Baso % (Auto) 0.2 Neut # (Auto) 9.6 H Lymph # (Auto) 0.3 L [place] # (Auto) 0.3 Eos # (Auto) 0.0 Baso # (Auto) 0.0 Neutrophils % (Manual) 74 Band Neutrophils % 18 H* Lymphocytes % (Manual) 2 L Monocytes % (Manual) 6 Platelet Estimate Normal Hypochromasia (manual) Slight Poikilocytosis (manual Slight Anisocytosis (manual) Slight PT INR APTT D-Dimer, Quantitative Puncture Site Lb pCO2 33 L pO2 334 H HCO3 26.2 ABG pH 7.48 H ABG Total CO2 25.6 ABG O2 Saturation 100.1 H ABG Base Excess 1.6 ABG Hemoglobin ABG Carboxyhemoglobin POC ABG HHb (Measured) ABG Methemoglobin Parviz Test Na ABG Potassium 3.8 A-a O2 Difference 338.0 Respiratory Index 1.0 Hgb O2 Saturation Sodium 143.0 Chloride 109.0 H Glucose 373 H Lactate 2.1 FiO2 100.0 Inspiratory BiPAP 14 Expiratory BiPAP 7 Crit Value Called To Dr johnston Crit Value Called By Cecil mcmullen [facility] Crit Value Read Back Y Blood Gas Notified Time 1055 Potassium Carbon Dioxide Anion Gap BUN Creatinine Est GFR ( Amer) Est GFR (Non-Af Amer) POC Glucose (mg/dL) 420 H* Random Glucose Lactic Acid Calcium Phosphorus Magnesium Total Bilirubin AST ALT Alkaline Phosphatase Troponin I NT-Pro-B Natriuret Pep Total Protein Albumin Globulin Albumin/Globulin Ratio Arterial Blood Potassium 3.8 Urine Color Urine Clarity Urine pH Ur Specific [place] Urine Protein Urine Glucose (UA) Urine Ketones Urine Blood Urine Nitrate Urine Bilirubin Urine Urobilinogen Ur Leukocyte Esterase Urine WBC (Auto) Urine Opiates Screen Urine Methadone Screen Ur Barbiturates Screen Ur Phencyclidine Scrn Ur Amphetamines Screen U Benzodiazepines Scrn U Oth Cocaine Metabols U Cannabinoids Screen 12/01/17 12/01/17 12/01/17 11:11 11:23 13:39 WBC RBC Hgb Hct MCV MCH MCHC RDW Plt Count MPV Neut % (Auto) Lymph % (Auto) [place] % (Auto) Eos % (Auto) Baso % (Auto) Neut # (Auto) Lymph # (Auto) [place] # (Auto) Eos # (Auto) Baso # (Auto) Neutrophils % (Manual) Band Neutrophils % Lymphocytes % (Manual) Monocytes % (Manual) Platelet Estimate Hypochromasia (manual) Poikilocytosis (manual Anisocytosis (manual) PT 12.9 H INR 1.15 H APTT 20 L D-Dimer, Quantitative Puncture Site pCO2 pO2 HCO3 ABG pH ABG Total CO2 ABG O2 Saturation ABG Base Excess ABG Hemoglobin ABG Carboxyhemoglobin POC ABG HHb (Measured) ABG Methemoglobin Parviz Test ABG Potassium A-a O2 Difference Respiratory Index Hgb O2 Saturation Sodium 138 Chloride 106 Glucose Lactate FiO2 Inspiratory BiPAP Expiratory BiPAP Crit Value Called To Crit Value Called By Crit Value Read Back Blood Gas Notified Time Potassium 3.5 L Carbon Dioxide 23 Anion Gap 13 BUN 29 H Creatinine 0.9 Est GFR ( Amer) > 60 Est GFR (Non-Af Amer) > 60 POC Glucose (mg/dL) Random Glucose 328 H Lactic Acid Calcium 7.5 L Phosphorus 3.5 Magnesium 1.8 Total Bilirubin 0.8 AST 9 L ALT 31 Alkaline Phosphatase 67 Troponin I 0.1960 H* NT-Pro-B Natriuret Pep 8820 H Total Protein 5.5 L Albumin 2.8 L D Globulin 2.7 Albumin/Globulin Ratio 1.0 Arterial Blood Potassium Urine Color Yellow Urine Clarity Hazy Urine pH 5.0 Ur Specific [place] 1.021 Urine Protein 1+ H Urine Glucose (UA) 3+ H Urine Ketones Negative Urine Blood Negative Urine Nitrate Negative Urine Bilirubin Negative Urine Urobilinogen 2.0 Ur Leukocyte Esterase Neg Urine WBC (Auto) 2 Urine Opiates Screen Urine Methadone Screen Ur Barbiturates Screen Ur Phencyclidine Scrn Ur Amphetamines Screen U Benzodiazepines Scrn U Oth Cocaine Metabols U Cannabinoids Screen 12/01/17 12/01/17 12/01/17 20:48 20:48 20:48 WBC RBC Hgb Hct MCV MCH MCHC RDW Plt Count MPV Neut % (Auto) Lymph % (Auto) [place] % (Auto) Eos % (Auto) Baso % (Auto) Neut # (Auto) Lymph # (Auto) [place] # (Auto) Eos # (Auto) Baso # (Auto) Neutrophils % (Manual) Band Neutrophils % Lymphocytes % (Manual) Monocytes % (Manual) Platelet Estimate Hypochromasia (manual) Poikilocytosis (manual Anisocytosis (manual) PT INR APTT D-Dimer, Quantitative 2791 H Puncture Site pCO2 pO2 HCO3 ABG pH ABG Total CO2 ABG O2 Saturation ABG Base Excess ABG Hemoglobin ABG Carboxyhemoglobin POC ABG HHb (Measured) ABG Methemoglobin Parviz Test ABG Potassium A-a O2 Difference Respiratory Index Hgb O2 Saturation Sodium 142 Chloride 107 Glucose Lactate FiO2 Inspiratory BiPAP Expiratory BiPAP Crit Value Called To Crit Value Called By Crit Value Read Back Blood Gas Notified Time Potassium 3.7 Carbon Dioxide 23 Anion Gap 16 BUN 36 H Creatinine 1.2 Est GFR ( Amer) > 60 Est GFR (Non-Af Amer) 57 POC Glucose (mg/dL) Random Glucose 390 H Lactic Acid 3.5 H Calcium 8.0 L Phosphorus 2.9 Magnesium 1.9 Total Bilirubin AST ALT Alkaline Phosphatase Troponin I 0.2200 H* NT-Pro-B Natriuret Pep 11213 H Total Protein Albumin Globulin Albumin/Globulin Ratio Arterial Blood Potassium Urine Color Urine Clarity Urine pH Ur Specific [place] Urine Protein Urine Glucose (UA) Urine Ketones Urine Blood Urine Nitrate Urine Bilirubin Urine Urobilinogen Ur Leukocyte Esterase Urine WBC (Auto) Urine Opiates Screen Urine Methadone Screen Ur Barbiturates Screen Ur Phencyclidine Scrn Ur Amphetamines Screen U Benzodiazepines Scrn U Oth Cocaine Metabols U Cannabinoids Screen 12/01/17 12/01/17 20:59 21:10 WBC RBC Hgb Hct MCV MCH MCHC RDW Plt Count MPV Neut % (Auto) Lymph % (Auto) [place] % (Auto) Eos % (Auto) Baso % (Auto) Neut # (Auto) Lymph # (Auto) [place] # (Auto) Eos # (Auto) Baso # (Auto) Neutrophils % (Manual) Band Neutrophils % Lymphocytes % (Manual) Monocytes % (Manual) Platelet Estimate Hypochromasia (manual) Poikilocytosis (manual Anisocytosis (manual) PT INR APTT D-Dimer, Quantitative Puncture Site Rra pCO2 27 L pO2 86 HCO3 25.8 ABG pH 7.54 H ABG Total CO2 23.9 ABG O2 Saturation 99.2 H ABG Base Excess 1.1 ABG Hemoglobin 9.3 L ABG Carboxyhemoglobin 1.8 H POC ABG HHb (Measured) 0.8 ABG Methemoglobin 1.2 Parviz Test Pos ABG Potassium A-a O2 Difference 94.0 Respiratory Index 1.1 Hgb O2 Saturation 96.1 Sodium Chloride Glucose Lactate FiO2 30.0 Inspiratory BiPAP 14 Expiratory BiPAP 7 Crit Value Called To Crit Value Called By Crit Value Read Back Blood Gas Notified Time Potassium Carbon Dioxide Anion Gap BUN Creatinine Est GFR ( Amer) Est GFR (Non-Af Amer) POC Glucose (mg/dL) Random Glucose Lactic Acid Calcium Phosphorus Magnesium Total Bilirubin AST ALT Alkaline Phosphatase Troponin I NT-Pro-B Natriuret Pep Total Protein Albumin Globulin Albumin/Globulin Ratio Arterial Blood Potassium Urine Color Urine Clarity Urine pH Ur Specific [place] Urine Protein Urine Glucose (UA) Urine Ketones Urine Blood Urine Nitrate Urine Bilirubin Urine Urobilinogen Ur Leukocyte Esterase Urine WBC (Auto) Urine Opiates Screen Negative Urine Methadone Screen Negative Ur Barbiturates Screen Negative Ur Phencyclidine Scrn Negative Ur Amphetamines Screen Negative U Benzodiazepines Scrn Negative U Oth Cocaine Metabols Negative U Cannabinoids Screen Negative EKG/Cardiology Studies: Cardiology / EKG Studies 12/01/17 10:26 ELECTROCARDIOGRAM Stat Comment: Mode Of Transportation: Reason For Exam: Sepsis Patient 12/01/17 10:37 ELECTROCARDIOGRAM Stat Comment: Mode Of Transportation: Reason For Exam: Sepsis Patient Fingerstick Blood Sugar Results: 420
[2017-12-01] MEDS ORDERED: Phenylephrine 30 MG in Sodium Chloride 0.9% 250 ML IV PRN (23:41)
--- NOTE | 2017-12-02 | PCM.PROC ---
Procedures Attestation:: I certify that I have explained the specified Operation(s) or Procedure(s), risks, benefits and reasonable alternatives to the Patient and/or other person responsible. The opportunity was given to ask questions and all questions answered - Central Line Placement Right Femoral Aseptic technique was employed throughout the procedure: Hand Hygiene done prior to procedure, Full sterile barriers (mask, hair cover, sterile gown, sterile gloves), Full body sterile drape, Chloraprep Antiseptic: 2 minute prep for Femoral CVP Time Out Performed: Yes Pt. Placed on Pulse Ox Monitor: Yes Central Line Prep: Povidone-Iodine 1% Local Anesthesia Used: Lidocaine 1% Amount of Anesthesia Used (mls): 5 Ultrasound Used for Placement: No Central Line Lumen Inserted: triple Post Procedure: Sutured in Place, Good Blood Return, All Ports Aspirated, Flushed, Capped, Sterile Dressing Applied Secured by: Suture Post procedure dressing: Chlorhexidine disc (Biopatch) Post Procedure X-Ray: No Patient Tolerated Procedure: Well Immediate Complications: None Additional Comments: patient hypotensive.attempted calling ,not answering,mailbox full ,unable to leave message Central line placed as emergency for pressors
[2017-12-02] MEDS: Latanoprost 2.5 ml Opht Soln OD SCH ×2 (00:15→21:05)
[2017-12-02] MEDS: (Novolog) Insulin Aspart, Recombinant 100 u/ml 10 ml vial SC SCH ×4 (00:45→18:19)
[2017-12-02 01:02] LABS: ABG ALLEN TEST POS; ARTERIAL BLOOD GAS HEMOGLOBIN 9.3 g/dL (11.7-17.4); ARTERIAL BLOOD GAS O2 SAT 99.7 % (95-98); ARTERIAL BLOOD GAS PCO2 34 mm/Hg (35-45); ARTERIAL BLOOD GAS PH 7.49 (7.35-7.45); ARTERIAL BLOOD GAS PO2 146 mm/Hg (80-100); ARTERIAL BLOOD GAS TCO2 26.9 mmol/L (22-28)
[2017-12-02] MEDS ORDERED: Digoxin 500 mcg/2ml (0.5 mg/2ml) Inj IVP ONE (02:13)
[2017-12-02] MEDS ORDERED: Sodium Chloride 0.9% 500 ML IV ONE (02:14)
[2017-12-02 02:40] VITALS: PULSE 135
[2017-12-02] MEDS: Aztreonam 2 GM in Sodium Chloride 0.9% 100 ML IVPB SCH ×3 (03:00→20:30)
[2017-12-02] MEDS: Phenylephrine 60 MG in Sodium Chloride 0.9% 250 ML IV PRN ×2 (03:55→13:08)
[2017-12-02] MEDS: Acyclovir 500 MG in Sodium Chloride 0.9% 100 ML IV SCH ×3 (04:00→19:30)
[2017-12-02 06:25] LABS: ABG ALLEN TEST POS; ARTERIAL BLOOD GAS HCO3 19.4 mmol/L (21-28); ARTERIAL BLOOD GAS O2 SAT 99.8 % (95-98); ARTERIAL BLOOD GAS PCO2 22 mm/Hg (35-45); ARTERIAL BLOOD GAS PH 7.44 (7.35-7.45); ARTERIAL BLOOD GAS PO2 152 mm/Hg (80-100); ARTERIAL BLOOD GAS TCO2 15.6 mmol/L (22-28)
[2017-12-02 06:41] LABS: HEMOGLOBIN 9.4 g/dL (12.0-18.0); MEAN CELL VOLUME 81.6 fL (80.0-94.0); MEAN CORPUSCULAR HEMOGLOBIN 26.2 pg (27.0-31.0); MEAN CORPUSCULAR HGB CONC 32.1 g/dL (33.0-37.0); PLATELET COUNT 235 K/uL (130-400); RBC 3.59 Mil/uL (4.40-5.90); RED CELL DISTRIBUTION WIDTH 16.2 % (11.5-14.5); WHITE BLOOD COUNT 13.8 K/uL (4.8-10.8)
[2017-12-02 06:42] LABS: BASO % 0.1 % (0.0-2.0); LYMPH # 0.1 K/uL (1.0-4.3); MEAN PLATELET VOLUME 10.5 fL (7.2-11.7); MONO # 0.4 K/uL (0.0-0.8); MONO % 2.8 % (0.0-10.0); NEUT # 13.2 K/uL (1.8-7.0); NEUT % 96.1 % (50.0-75.0); NRBC % 0.1 % (0.0-2.0)
[2017-12-02 06:57] LABS: ALBUMIN 2.8 g/dL (3.5-5.0); CALCIUM 7.8 mg/dl (8.6-10.4); MAGNESIUM 1.9 mg/dL (1.6-2.3)
[2017-12-02 07:12] LABS: TROPONIN I 0.288 ng/mL (0.00-0.120)
[2017-12-02 07:17] LABS: IRON < 10 ug/dL (49-181); TOTAL IRON BINDING CAPACITY 182 ug/dL (250-450)
[2017-12-02] MEDS ORDERED: Potassium Phosphate 15 MMOLE in Sodium Chloride 0.9% 250 ML IVPB ONE (07:19)
[2017-12-02 07:20] LABS: % IRON SATURATION 5.5 (20-55)
[2017-12-02] MEDS: Sodium Chloride 0.9% 1,000 ML IV SCH ×2 (07:50→21:30)
[2017-12-02] MEDS: Acetaminophen 650mg/20.3ml solution UD PO PRN (09:03)
[2017-12-02 09:40] LABS: BANDS 18 % (0-2); LYMPHOCYTE 1 % (20-40); MONOCYTE 2 % (0-10); NEUTROPHIL 79 % (50-75); PLATELET ESTIMATE NORMAL (NORMAL); TOTAL CELLS COUNTED 100
[2017-12-02 09:41] LABS: ANISOCYTOSIS SLIGHT; HYPOCHROMIC SLIGHT; LARGE PLATELETS PRESENT; TOXIC GRANULATION PRESENT
[2017-12-02 09:42] LABS: GIANT PLATELETS PRESENT; POLYCHROMIC SLIGHT
--- NOTE | 2017-12-02 12:27 | CT ---
PROCEDURE: CT HEAD WITHOUT CONTRAST. HISTORY: r/o ICH COMPARISON: None available. TECHNIQUE: Axial computed tomography images were obtained through the head/brain without intravenous contrast. Radiation dose: Total exam DLP = 1294.16 mGy-cm. This CT exam was performed using one or more of the following dose reduction techniques: Automated exposure control, adjustment of the mA and/or kV according to patient size, and/or use of iterative reconstruction technique. FINDINGS: Streak artifact from dental hardware. BRAIN: Diffuse atrophy with prominence of the ventricles and sulci noted. No mass effect or edema. Scattered periventricular and subcortical white matter hypodensities, which are nonspecific, but often seen with chronic microvascular ischemic disease. Moderate-sized bilateral hygromas. Small semi lunar/ crescentic focus frontal aspect of the left-sided hygroma possibly granulation, blood product consider less likely. Please note that MRI with diffusion imaging is more sensitive in the detection of acute ischemic event. VENTRICLES: Right posterior approach CW OPERATOR shunt catheter extends the right lateral ventricle. No hydrocephalus. CALVARIUM: Unremarkable. PARANASAL SINUSES: Unremarkable as visualized. No significant inflammatory changes. MASTOID AIR CELLS: Unremarkable as visualized. No inflammatory changes. OTHER FINDINGS: Left frontal scalp soft tissue swelling. IMPRESSION: Left frontal scalp soft tissue scarring versus soft tissue swelling ; correlate with clinical history/physical exam. Small small semi lunar/ crescentic focus frontal aspect of the left-sided hygroma possibly granulation, blood product consider less likely. If indicated, [address] follow-up may be considered for further evaluation. Moderate-sized bilateral hygromas. Right posterior approach CW OPERATOR shunt catheter extends to the right lateral ventricle. Findings discussed with [employer] on 12/02/17 at 12:17 p.m.
--- NOTE | 2017-12-02 12:46 | CP.PCM.CON ---
History of Present Illness - History of Present Illness History of Present Illness: 87 yr old male who is a skilled nursing resident, who was brought here septic, with increased bands, pmh of afib, dementia and htn, febrile. History is obtained from chart as patient is unable to give a history and he is very lethargic. There is a question of meningitis, for which is peforming LP. There is no history of seizure or stroke in the NH, and he became more confused over the 24 hours before presentation. He is admitted to the ICU, intubated and was just given 2mg ativan. PMH: Atrial Fibrillation, Dementia, HTN Family History: States: Diabetes - Social History Hx Tobacco Use: No Hx Alcohol Use: No Hx Substance Use: No On exam: patient is lethargic and confused, but withdraws to painful stimuli with arms bilaterally, he has no spontaneous movement in his legs. Pupils 2mm-1mm with light. +dolls eyes, +gag reflex, +corneals. +1 dtr ul and ll bl. Past Patient History - Past Medical History & Family History Past Medical History?: Yes - Past Social History Smoking Status: Never Smoked - CARDIAC Hx Atrial Fibrillation: Yes Hx Hypertension: Yes - PULMONARY Hx Respiratory Disorders: No - NEUROLOGICAL Hx Dementia: Yes - HEENT Hx HEENT Problems: Yes Hx Cataracts: Yes - RENAL Hx Chronic Kidney Disease: No - ENDOCRINE/METABOLIC Hx Endocrine Disorders: Yes Hx Diabetes Mellitus Type 2: Yes - HEMATOLOGICAL/ONCOLOGICAL Hx Blood Disorders: No - INTEGUMENTARY Hx Dermatological Problems: No - MUSCULOSKELETAL/RHEUMATOLOGICAL Hx Musculoskeletal Disorders: Yes Hx Falls: Yes - GASTROINTESTINAL Hx Gastrointestinal Disorders: Yes Other/Comment: dysphagia - GENITOURINARY/GYNECOLOGICAL Hx Genitourinary Disorders: No - PSYCHIATRIC Hx Substance Use: No - SURGICAL HISTORY Hx Surgeries: Yes Other/Comment: 'SHUNT' - ANESTHESIA Hx Anesthesia Reactions: No Meds Allergies/Adverse Reactions: Allergies Allergy/AdvReac Type Severity Reaction Status Date / Time lisinopril Allergy Verified 12/01/17 10:28 Penicillins Allergy Verified 12/01/17 10:20 TOMATO Allergy Uncoded 01/26/17 12:02 - Medications Medications: Current Medications Acetaminophen (Tylenol 650mg/20.3ml Solution Ud) 650 mg PO Q6 PRN PRN Reason: fever Last Admin: 12/02/17 09:03 Dose: 650 mg Aspirin (Aspirin Chewable) 81 mg PO DAILY [facility] Last Admin: 12/02/17 10:41 Dose: 81 mg Folic Acid (Folic Acid) 1 mg PO DAILY [facility] Last Admin: 12/02/17 10:41 Dose: 1 mg Acyclovir 500 mg/ Sodium (Chloride) 100 mls @ 100 mls/hr IV Q8H [facility] Last Admin: 12/02/17 04:00 Dose: 100 mls/hr Aztreonam 2 gm/ Sodium (Chloride) 100 mls @ 100 mls/hr IVPB Q8H [facility] Last Admin: 12/02/17 11:24 Dose: 100 mls/hr Moxifloxacin HCl (Avelox Iv 400mg/250ml Ns) 400 mg in 250 mls @ 167 mls/hr IVPB Q24H [facility] Vancomycin/Sodium Chloride (Vancomycin 1 Gm/Ns 200 Ml) 1 gm in 200 mls @ 133 mls/hr IVPB Q24H [facility] Stop: 12/07/17 15:01 Phenylephrine HCl 60 mg/ (Sodium Chloride) 256 mls @ 5.11 mls/hr IV .Q24H PRN; Protocol; 20 MCG/MIN PRN Reason: TITRATE PER MD ORDER Last Titration: 12/02/17 10:00 Dose: 120 mcg/min, 30.72 mls/hr Potassium Phosphate 15 mmole/ (Sodium Chloride) 255 mls @ 42.5 mls/hr IVPB ONCE ONE Stop: 12/02/17 13:18 Last Admin: 12/02/17 08:47 Dose: 42.5 mls/hr Sodium Chloride (Sodium Chloride 0.9%) 1,000 mls @ 75 mls/hr IV .[id number] [facility] Last Admin: 12/02/17 07:50 Dose: 75 mls/hr Insulin Aspart (Novolog) 0 unit SC Q6H [facility] PRN Reason: Protocol Last Admin: 12/02/17 07:00 Dose: Not Given Latanoprost (Xalatan Opht) 0 ml OD HS [facility] Last Admin: 12/02/17 00:15 Dose: 2.5 ml Lorazepam (Ativan) 2 mg IVP Q4H PRN PRN Reason: Agitation Last Admin: 12/02/17 10:41 Dose: 2 mg Metoprolol Tartrate (Lopressor) 12.5 mg GT BID [facility] Last Admin: 12/02/17 10:41 Dose: 12.5 mg Rosuvastatin Calcium (Crestor) 5 mg PO HS [facility] Last Admin: 12/01/17 22:00 Dose: Not Given Thiamine HCl (Vitamin B1 Tab) 100 mg GT DAILY [facility] Last Admin: 12/02/17 10:41 Dose: 100 mg Results - Vital Signs Recent Vital Signs: Last Vital Signs Temp 103.3 F H 12/02/17 08:00 Pulse 133 H 12/02/17 11:01 Resp 16 12/02/17 11:01 BP 99/64 L 12/02/17 11:01 Pulse Ox 100 12/02/17 11:01 - Labs Result Diagrams: 12/02/17 06:31 12/02/17 06:31 Labs: Laboratory Results - last 24 hr 12/01/17 12/01/17 12/01/17 13:39 20:48 20:48 WBC RBC Hgb Hct MCV MCH MCHC RDW Plt Count MPV Neut % (Auto) Lymph % (Auto) Glasscock % (Auto) Eos % (Auto) Baso % (Auto) Neut # (Auto) Lymph # (Auto) [place]cock # (Auto) Eos # (Auto) Baso # (Auto) Neutrophils % (Manual) Band Neutrophils % Lymphocytes % (Manual) Monocytes % (Manual) Toxic Granulation Platelet Estimate Large Platelets Giant Platelets Polychromasia Hypochromasia (manual) Anisocytosis (manual) PT 12.9 H INR 1.15 H APTT 20 L D-Dimer, Quantitative 2791 H Puncture Site pCO2 pO2 HCO3 ABG pH ABG Total CO2 ABG O2 Saturation ABG Base Excess ABG Hemoglobin ABG Carboxyhemoglobin POC ABG HHb (Measured) ABG Methemoglobin Parviz Test ABG Potassium A-a O2 Difference Respiratory Index Hgb O2 Saturation Glucose Lactate Vent Mode Mechanical Rate FiO2 Tidal Volume PEEP Inspiratory BiPAP Expiratory BiPAP Crit Value Called To Crit Value Called By Crit Value Read Back Blood Gas Notified Time Sodium Potassium Chloride Carbon Dioxide Anion Gap BUN Creatinine Est GFR ( Amer) Est GFR (Non-Af Amer) POC Glucose (mg/dL) Random Glucose Lactic Acid 3.5 H Calcium Phosphorus Magnesium Iron TIBC % Saturation Total Bilirubin AST ALT Alkaline Phosphatase Troponin I NT-Pro-B Natriuret Pep Total Protein Albumin Globulin Albumin/Globulin Ratio Arterial Blood Potassium Stool Occult Blood Urine Opiates Screen Urine Methadone Screen Ur Barbiturates Screen Ur Phencyclidine Scrn Ur Amphetamines Screen U Benzodiazepines Scrn U Oth Cocaine Metabols U Cannabinoids Screen 12/01/17 12/01/17 12/01/17 20:48 20:59 21:10 WBC RBC Hgb Hct MCV MCH MCHC RDW Plt Count MPV Neut % (Auto) Lymph % (Auto) Glasscock % (Auto) Eos % (Auto) Baso % (Auto) Neut # (Auto) Lymph # (Auto) [place]cock # (Auto) Eos # (Auto) Baso # (Auto) Neutrophils % (Manual) Band Neutrophils % Lymphocytes % (Manual) Monocytes % (Manual) Toxic Granulation Platelet Estimate Large Platelets Giant Platelets Polychromasia Hypochromasia (manual) Anisocytosis (manual) PT INR APTT D-Dimer, Quantitative Puncture Site Rra pCO2 27 L pO2 86 HCO3 25.8 ABG pH 7.54 H ABG Total CO2 23.9 ABG O2 Saturation 99.2 H ABG Base Excess 1.1 ABG Hemoglobin 9.3 L ABG Carboxyhemoglobin 1.8 H POC ABG HHb (Measured) 0.8 ABG Methemoglobin 1.2 Parviz Test Pos ABG Potassium A-a O2 Difference 94.0 Respiratory Index 1.1 Hgb O2 Saturation 96.1 Glucose Lactate Vent Mode Mechanical Rate FiO2 30.0 Tidal Volume PEEP Inspiratory BiPAP 14 Expiratory BiPAP 7 Crit Value Called To Crit Value Called By Crit Value Read Back Blood Gas Notified Time Sodium 142 Potassium 3.7 Chloride 107 Carbon Dioxide 23 Anion Gap 16 BUN 36 H Creatinine 1.2 Est GFR ( Amer) > 60 Est GFR (Non-Af Amer) 57 POC Glucose (mg/dL) Random Glucose 390 H Lactic Acid Calcium 8.0 L Phosphorus 2.9 Magnesium 1.9 Iron TIBC % Saturation Total Bilirubin AST ALT Alkaline Phosphatase Troponin I 0.2200 H* NT-Pro-B Natriuret Pep 82449 H Total Protein Albumin Globulin Albumin/Globulin Ratio Arterial Blood Potassium Stool Occult Blood Urine Opiates Screen Negative Urine Methadone Screen Negative Ur Barbiturates Screen Negative Ur Phencyclidine Scrn Negative Ur Amphetamines Screen Negative U Benzodiazepines Scrn Negative U Oth Cocaine Metabols Negative U Cannabinoids Screen Negative 12/02/17 12/02/17 12/02/17 00:28 00:41 04:56 WBC RBC Hgb Hct MCV MCH MCHC RDW Plt Count MPV Neut % (Auto) Lymph % (Auto) Glasscock % (Auto) Eos % (Auto) Baso % (Auto) Neut # (Auto) Lymph # (Auto) [place]cock # (Auto) Eos # (Auto) Baso # (Auto) Neutrophils % (Manual) Band Neutrophils % Lymphocytes % (Manual) Monocytes % (Manual) Toxic Granulation Platelet Estimate Large Platelets Giant Platelets Polychromasia Hypochromasia (manual) Anisocytosis (manual) PT INR APTT D-Dimer, Quantitative Puncture Site Rr Lr pCO2 34 L 22 L pO2 146 H 152 H HCO3 27.0 19.4 L ABG pH 7.49 H 7.44 ABG Total CO2 26.9 15.6 L ABG O2 Saturation 99.7 H 99.8 H ABG Base Excess 2.6 -7.1 L ABG Hemoglobin 9.3 L ABG Carboxyhemoglobin 1.7 H POC ABG HHb (Measured) 0.3 ABG Methemoglobin 1.0 Parviz Test Pos Pos ABG Potassium 2.0 L* A-a O2 Difference 168.0 177.0 Respiratory Index 1.2 1.2 Hgb O2 Saturation 97.0 Glucose 121 H Lactate 1.5 Vent Mode Prvc Prvc Mechanical Rate 16 16 FiO2 50.0 50.0 Tidal Volume 500 500 PEEP 5 5 Inspiratory BiPAP Expiratory BiPAP Crit Value Called To Abbie rogers multicultural manager Crit Value Called By Tanisha rhodes rt Crit Value Read Back Y Blood Gas Notified Time 624 Sodium 151.0 H Potassium Chloride 124.0 H Carbon Dioxide Anion Gap BUN Creatinine Est GFR ( Amer) Est GFR (Non-Af Amer) POC Glucose (mg/dL) 319 H Random Glucose Lactic Acid Calcium Phosphorus Magnesium Iron TIBC % Saturation Total Bilirubin AST ALT Alkaline Phosphatase Troponin I NT-Pro-B Natriuret Pep Total Protein Albumin Globulin Albumin/Globulin Ratio Arterial Blood Potassium 2.0 L* Stool Occult Blood Urine Opiates Screen Urine Methadone Screen Ur Barbiturates Screen Ur Phencyclidine Scrn Ur Amphetamines Screen U Benzodiazepines Scrn U Oth Cocaine Metabols U Cannabinoids Screen 12/02/17 12/02/17 12/02/17 06:31 06:31 06:31 WBC 13.8 H RBC 3.59 L Hgb 9.4 L Hct 29.3 L MCV 81.6 MCH 26.2 L MCHC 32.1 L RDW 16.2 H Plt Count 235 MPV 10.5 Neut % (Auto) 96.1 H Lymph % (Auto) 1.0 L Glasscock % (Auto) 2.8 Eos % (Auto) 0.0 Baso % (Auto) 0.1 Neut # (Auto) 13.2 H Lymph # (Auto) 0.1 L Glasscock # (Auto) 0.4 Eos # (Auto) 0.0 Baso # (Auto) 0.0 Neutrophils % (Manual) 79 H Band Neutrophils % 18 H* Lymphocytes % (Manual) 1 L Monocytes % (Manual) 2 Toxic Granulation Present Platelet Estimate Normal Large Platelets Present Giant Platelets Present Polychromasia Slight Hypochromasia (manual) Slight Anisocytosis (manual) Slight PT INR APTT D-Dimer, Quantitative Puncture Site pCO2 pO2 HCO3 ABG pH ABG Total CO2 ABG O2 Saturation ABG Base Excess ABG Hemoglobin ABG Carboxyhemoglobin POC ABG HHb (Measured) ABG Methemoglobin Parviz Test ABG Potassium A-a O2 Difference Respiratory Index Hgb O2 Saturation Glucose Lactate Vent Mode Mechanical Rate FiO2 Tidal Volume PEEP Inspiratory BiPAP Expiratory BiPAP Crit Value Called To Crit Value Called By Crit Value Read Back Blood Gas Notified Time Sodium 143 Potassium 3.5 L Chloride 107 Carbon Dioxide 23 Anion Gap 16 BUN 41 H Creatinine 1.5 Est GFR ( Amer) 53 Est GFR (Non-Af Amer) 44 POC Glucose (mg/dL) Random Glucose 171 H Lactic Acid Calcium 7.8 L Phosphorus 2.3 L Magnesium 1.9 Iron < 10 L TIBC 182 L % Saturation 5.5 L Total Bilirubin 0.7 AST 17 D ALT 34 Alkaline Phosphatase 66 Troponin I 0.2880 H* NT-Pro-B Natriuret Pep Total Protein 5.6 L Albumin 2.8 L Globulin 2.8 Albumin/Globulin Ratio 1.0 Arterial Blood Potassium Stool Occult Blood Urine Opiates Screen Urine Methadone Screen Ur Barbiturates Screen Ur Phencyclidine Scrn Ur Amphetamines Screen U Benzodiazepines Scrn U Oth Cocaine Metabols U Cannabinoids Screen 12/02/17 12/02/17 12/02/17 06:34 07:12 08:31 WBC RBC Hgb Hct MCV MCH MCHC RDW Plt Count MPV Neut % (Auto) Lymph % (Auto) [place]cock % (Auto) Eos % (Auto) Baso % (Auto) Neut # (Auto) Lymph # (Auto) [place]cock # (Auto) Eos # (Auto) Baso # (Auto) Neutrophils % (Manual) Band Neutrophils % Lymphocytes % (Manual) Monocytes % (Manual) Toxic Granulation Platelet Estimate Large Platelets Giant Platelets Polychromasia Hypochromasia (manual) Anisocytosis (manual) PT INR APTT D-Dimer, Quantitative Puncture Site pCO2 pO2 HCO3 ABG pH ABG Total CO2 ABG O2 Saturation ABG Base Excess ABG Hemoglobin ABG Carboxyhemoglobin POC ABG HHb (Measured) ABG Methemoglobin Parviz Test ABG Potassium A-a O2 Difference Respiratory Index Hgb O2 Saturation Glucose Lactate Vent Mode Mechanical Rate FiO2 Tidal Volume PEEP Inspiratory BiPAP Expiratory BiPAP Crit Value Called To Crit Value Called By Crit Value Read Back Blood Gas Notified Time Sodium Potassium Chloride Carbon Dioxide Anion Gap BUN Creatinine Est GFR ( Amer) Est GFR (Non-Af Amer) POC Glucose (mg/dL) 184 H Random Glucose Lactic Acid 2.3 H Calcium Phosphorus Magnesium Iron TIBC % Saturation Total Bilirubin AST ALT Alkaline Phosphatase Troponin I NT-Pro-B Natriuret Pep Total Protein Albumin Globulin Albumin/Globulin Ratio Arterial Blood Potassium Stool Occult Blood Positive H Urine Opiates Screen Urine Methadone Screen Ur Barbiturates Screen Ur Phencyclidine Scrn Ur Amphetamines Screen U Benzodiazepines Scrn U Oth Cocaine Metabols U Cannabinoids Screen 12/02/17 11:36 WBC RBC Hgb Hct MCV MCH MCHC RDW Plt Count MPV Neut % (Auto) Lymph % (Auto) Glasscock % (Auto) Eos % (Auto) Baso % (Auto) Neut # (Auto) Lymph # (Auto) [place]cock # (Auto) Eos # (Auto) Baso # (Auto) Neutrophils % (Manual) Band Neutrophils % Lymphocytes % (Manual) Monocytes % (Manual) Toxic Granulation Platelet Estimate Large Platelets Giant Platelets Polychromasia Hypochromasia (manual) Anisocytosis (manual) PT INR APTT D-Dimer, Quantitative Puncture Site pCO2 pO2 HCO3 ABG pH ABG Total CO2 ABG O2 Saturation ABG Base Excess ABG Hemoglobin ABG Carboxyhemoglobin POC ABG HHb (Measured) ABG Methemoglobin Parviz Test ABG Potassium A-a O2 Difference Respiratory Index Hgb O2 Saturation Glucose Lactate Vent Mode Mechanical Rate FiO2 Tidal Volume PEEP Inspiratory BiPAP Expiratory BiPAP Crit Value Called To Crit Value Called By Crit Value Read Back Blood Gas Notified Time Sodium Potassium Chloride Carbon Dioxide Anion Gap BUN Creatinine Est GFR ( Amer) Est GFR (Non-Af Amer) POC Glucose (mg/dL) 185 H Random Glucose Lactic Acid Calcium Phosphorus Magnesium Iron TIBC % Saturation Total Bilirubin AST ALT Alkaline Phosphatase Troponin I NT-Pro-B Natriuret Pep Total Protein Albumin Globulin Albumin/Globulin Ratio Arterial Blood Potassium Stool Occult Blood Urine Opiates Screen Urine Methadone Screen Ur Barbiturates Screen Ur Phencyclidine Scrn Ur Amphetamines Screen U Benzodiazepines Scrn U Oth Cocaine Metabols U Cannabinoids Screen Assessment & Plan - Assessment and Plan (Free Text) Assessment: 87 yr old male with possible meningitis, no meningismus noted, with history of A fib and possibilty of acute small territory stroke. Initial ct scan does not show hemorrahge but will wait for official report as sagittal sinus appears prominent. Plan: 1. official ct head report 2. LP per medicine. 3. Continue broad spectrum abx 4. EEG monday.
[2017-12-02] MEDS ORDERED: Moxifloxacin IV 400mg/250ml NS 400 MG/250 ML BAG IVPB SCH (13:00)
--- NOTE | 2017-12-02 14:32 | RAD ---
HISTORY: intubated, respiratory distress COMPARISON: Chest x-ray performed 12/01/17 TECHNIQUE: Chest, one view. FINDINGS: Examination limited by habitus. Endotracheal tube terminates approximately 3.8 cm above the dg. Nasogastric tube extends expected location of stomach. LUNGS: Patchy right middle/lower lobe atelectasis or pneumonia. Probable small left pleural effusion and/or consolidation. No definite pneumothorax. Please note that chest x-ray has limited sensitivity for the detection of pulmonary masses. CARDIOVASCULAR: Cardiomegaly. Atherosclerotic calcifications of the aorta. OSSEOUS STRUCTURES: Degenerative changes. VISUALIZED UPPER ABDOMEN: Unremarkable. OTHER FINDINGS: None. IMPRESSION: Endotracheal tube terminates approximately 3.8 cm above the dg. Nasogastric tube extends expected location of stomach. Patchy right middle/lower lobe atelectasis or pneumonia. Probable small left pleural effusion and/or consolidation.
[2017-12-02] MEDS: Vancomycin 1 gm/NS 200 ml 1 GM/200 ML BAG IVPB SCH (14:54)
[2017-12-02 15:10] LABS: FLUID TYPE SPINAL FLUID
[2017-12-02 15:36] LABS: CRYPTOCOCCUS ANTIGEN CSF NEGATIVE (NEGATIVE)
--- NOTE | 2017-12-02 15:45 | PCM.PROC ---
Procedures Attestation:: I certify that I have explained the specified Operation(s) or Procedure(s), risks, benefits and reasonable alternatives to the Patient and/or other person responsible. The opportunity was given to ask questions and all questions answered - Lumbar Puncture Consent Obtained: Written Consent Time Out Performed: Yes Patient Position: Left Lateral Decubitius Skin Prep: 0.5% Chlorhexidine/Alcohol Local Anesthetic Used: Lidocaine 1% Amount of Anesthesia Used (mls): 5 Spinal Needle Gauge: 20G Interspace Used: L4-L5 Opening Pressure (cmH2O): 5 Fluid Initially Obtained: Clear Complications: None
[2017-12-02] MEDS ORDERED: Sodium Chloride 0.9% 1,000 ML IV ONE (15:50)
[2017-12-02 15:59] LABS: CALCIUM 7.6 mg/dl (8.6-10.4)
[2017-12-02 16:05] LABS: CSF APPEARANCE CLEAR/COLORLESS (CLEAR); CSF VOLUME 1 mL (0-1)
[2017-12-02 16:25] LABS: CK-MB 0.99 ng/mL (0.0-3.38); TROPONIN I 0.41 ng/mL (0.00-0.120)
--- NOTE | 2017-12-02 16:44 | CP.PCM.PN ---
Subjective - Date & Time of Evaluation Date of Evaluation: 12/02/17 Time of Evaluation: 14:20 - Subjective Subjective: clinically same Objective - Vital Signs/Intake and Output Vital Signs (last 24 hours): Temp Pulse Resp BP Pulse Ox 99.9 F H 128 H 24 104/67 99 12/02/17 12:00 12/02/17 14:25 12/02/17 14:25 12/02/17 14:25 12/02/17 14:25 Intake and Output: 12/02/17 12/02/17 06:59 18:59 Intake Total 1706.5 1867 Output Total 125 90 Balance 1581.5 1777 - Medications Medications: Current Medications Acetaminophen (Tylenol 650mg/20.3ml Solution Ud) 650 mg PO Q6 PRN PRN Reason: fever Last Admin: 12/02/17 09:03 Dose: 650 mg Aspirin (Aspirin Chewable) 81 mg PO DAILY [facility] Last Admin: 12/02/17 10:41 Dose: 81 mg Famotidine (Pepcid) 20 mg IVP DAILY [facility] Last Admin: 12/02/17 16:37 Dose: 20 mg Folic Acid (Folic Acid) 1 mg PO DAILY [facility] Last Admin: 12/02/17 10:41 Dose: 1 mg Acyclovir 500 mg/ Sodium (Chloride) 100 mls @ 100 mls/hr IV Q8H [facility] Last Admin: 12/02/17 13:09 Dose: 100 mls/hr Aztreonam 2 gm/ Sodium (Chloride) 100 mls @ 100 mls/hr IVPB Q8H [facility] Last Admin: 12/02/17 11:24 Dose: 100 mls/hr Moxifloxacin HCl (Avelox Iv 400mg/250ml Ns) 400 mg in 250 mls @ 167 mls/hr IVPB Q24H [facility] Last Admin: 12/02/17 13:05 Dose: 167 mls/hr Vancomycin/Sodium Chloride (Vancomycin 1 Gm/Ns 200 Ml) 1 gm in 200 mls @ 133 mls/hr IVPB Q24H [facility] Stop: 12/07/17 15:01 Last Admin: 12/02/17 14:54 Dose: 133 mls/hr Phenylephrine HCl 60 mg/ (Sodium Chloride) 256 mls @ 5.11 mls/hr IV .Q24H PRN; Protocol; 20 MCG/MIN PRN Reason: TITRATE PER MD ORDER Last Titration: 12/02/17 16:16 Dose: 150 mcg/min, 38.4 mls/hr Sodium Chloride (Sodium Chloride 0.9%) 1,000 mls @ 75 mls/hr IV .[id number] [facility] Last Admin: 12/02/17 07:50 Dose: 75 mls/hr Sodium Chloride (Sodium Chloride 0.9%) 1,000 mls @ 1,000 mls/hr IV .Q1H [facility] Stop: 12/02/17 16:49 Last Admin: 12/02/17 16:12 Dose: 1,000 mls/hr Verapamil HCl 40 mg/ Sodium (Chloride) 100 mls @ 12.5 mls/hr IV .Q8H [facility]NA; 5 MG/ HR PRN Reason: Protocol Potassium Chloride (Potassium Chloride 20 Meq/100 Ml) 20 meq in 100 mls @ 50 mls/hr IVPB ONCE ONE Stop: 12/02/17 18:29 Last Admin: 12/02/17 16:26 Dose: 50 mls/hr Phenylephrine HCl 30 mg/ (Sodium Chloride) 253 mls @ 10.12 mls/hr IV .Q24H PRN ; Protocol; 20 MCG/MIN PRN Reason: TITRATE PER MD ORDER Insulin Aspart (Novolog) 0 unit SC Q6H [facility] PRN Reason: Protocol Last Admin: 12/02/17 12:00 Dose: Not Given Latanoprost (Xalatan Opht) 0 ml OD HS [facility] Last Admin: 12/02/17 00:15 Dose: 2.5 ml Lorazepam (Ativan) 2 mg IVP Q4H PRN PRN Reason: Agitation Last Admin: 12/02/17 13:50 Dose: 2 mg Metoprolol Tartrate (Lopressor) 12.5 mg GT BID [facility] Last Admin: 12/02/17 10:41 Dose: 12.5 mg Rosuvastatin Calcium (Crestor) 5 mg PO HS [facility] Last Admin: 12/01/17 22:00 Dose: Not Given Thiamine HCl (Vitamin B1 Tab) 100 mg GT DAILY [facility] Last Admin: 12/02/17 10:41 Dose: 100 mg - Labs Labs: 12/02/17 06:31 12/02/17 15:32 PT 12.9 SECONDS (9.7-12.2) H 12/01/17 13:39 INR 1.15 (0.92-1.08) H 12/01/17 13:39 APTT 20 SECONDS (21-34) L 12/01/17 13:39 - Constitutional Appears: Well - Head Exam Head Exam: ATRAUMATIC, NORMAL INSPECTION, NORMOCEPHALIC - Eye Exam Eye Exam: EOMI, Normal appearance, PERRL Pupil Exam: NORMAL ACCOMODATION, PERRL - ENT Exam ENT Exam: Mucous Membranes Moist, Normal Exam - Neck Exam Neck Exam: Full ROM, Normal Inspection. absent: Lymphadenopathy - Respiratory Exam Respiratory Exam: Decreased Breath Sounds - Cardiovascular Exam Cardiovascular Exam: REGULAR RHYTHM, +S1, +S2 - GI/Abdominal Exam GI & Abdominal Exam: Soft, Diminished Bowel Sounds - Rectal Exam Rectal Exam: Deferred Assessment and Plan (1) Bandemia Status: Acute (2) Dyspnea Status: Acute (3) Fever Status: Acute (4) Lethargy Status: Acute (5) Sepsis Status: Acute (6) Contusion Status: Acute (7) Fall Status: Acute
[2017-12-02 17:01] LABS: N MENINGITIS ACY/W135 NEGATIVE (NEGATIVE); N MENINGITIS B/ECOLI K1 NEGATIVE (NEGATIVE); STREP PNEUMONIAE NEGATIVE (NEGATIVE); STREPTOCOCCUS B NEGATIVE (NEGATIVE)
[2017-12-02] MEDS: Verapamil 40 MG in Sodium Chloride 0.9% 84 ML IV SCH (17:26)
--- NOTE | 2017-12-02 17:40 | CP.PCM.CON ---
Past Patient History - Past Medical History & Family History Past Medical History?: Yes - Past Social History Smoking Status: Never Smoked - CARDIAC Hx Atrial Fibrillation: Yes Hx Hypertension: Yes - PULMONARY Hx Respiratory Disorders: No - NEUROLOGICAL Hx Dementia: Yes - HEENT Hx HEENT Problems: Yes Hx Cataracts: Yes - RENAL Hx Chronic Kidney Disease: No - ENDOCRINE/METABOLIC Hx Endocrine Disorders: Yes Hx Diabetes Mellitus Type 2: Yes - HEMATOLOGICAL/ONCOLOGICAL Hx Blood Disorders: No - INTEGUMENTARY Hx Dermatological Problems: No - MUSCULOSKELETAL/RHEUMATOLOGICAL Hx Musculoskeletal Disorders: Yes Hx Falls: Yes - GASTROINTESTINAL Hx Gastrointestinal Disorders: Yes Other/Comment: dysphagia - GENITOURINARY/GYNECOLOGICAL Hx Genitourinary Disorders: No - PSYCHIATRIC Hx Substance Use: No - SURGICAL HISTORY Hx Surgeries: Yes Other/Comment: 'SHUNT' - ANESTHESIA Hx Anesthesia Reactions: No Meds Allergies/Adverse Reactions: Allergies Allergy/AdvReac Type Severity Reaction Status Date / Time lisinopril Allergy Verified 12/01/17 10:28 Penicillins Allergy Verified 12/01/17 10:20 TOMATO Allergy Uncoded 01/26/17 12:02 - Medications Medications: Current Medications Acetaminophen (Tylenol 650mg/20.3ml Solution Ud) 650 mg PO Q6 PRN PRN Reason: fever Last Admin: 12/02/17 09:03 Dose: 650 mg Aspirin (Aspirin Chewable) 81 mg PO DAILY [facility] Last Admin: 12/02/17 10:41 Dose: 81 mg Famotidine (Pepcid) 20 mg IVP DAILY [facility] Last Admin: 12/02/17 16:37 Dose: 20 mg Folic Acid (Folic Acid) 1 mg PO DAILY [facility] Last Admin: 12/02/17 10:41 Dose: 1 mg Acyclovir 500 mg/ Sodium (Chloride) 100 mls @ 100 mls/hr IV Q8H [facility] Last Admin: 12/02/17 13:09 Dose: 100 mls/hr Aztreonam 2 gm/ Sodium (Chloride) 100 mls @ 100 mls/hr IVPB Q8H [facility] Last Admin: 12/02/17 11:24 Dose: 100 mls/hr Moxifloxacin HCl (Avelox Iv 400mg/250ml Ns) 400 mg in 250 mls @ 167 mls/hr IVPB Q24H [facility] Last Admin: 12/02/17 13:05 Dose: 167 mls/hr Vancomycin/Sodium Chloride (Vancomycin 1 Gm/Ns 200 Ml) 1 gm in 200 mls @ 133 mls/hr IVPB Q24H ANA Stop: 12/07/17 15:01 Last Admin: 12/02/17 14:54 Dose: 133 mls/hr Phenylephrine HCl 60 mg/ (Sodium Chloride) 256 mls @ 5.11 mls/hr IV .Q24H PRN; Protocol; 20 MCG/MIN PRN Reason: TITRATE PER MD ORDER Last Titration: 12/02/17 16:16 Dose: 150 mcg/min, 38.4 mls/hr Sodium Chloride (Sodium Chloride 0.9%) 1,000 mls @ 75 mls/hr IV .[id number] ANA Last Admin: 12/02/17 07:50 Dose: 75 mls/hr Verapamil HCl 40 mg/ Sodium (Chloride) 100 mls @ 12.5 mls/hr IV .Q8H ANA; 5 MG/ HR PRN Reason: Protocol Last Admin: 12/02/17 17:26 Dose: 12.5 mls/hr Potassium Chloride (Potassium Chloride 20 Meq/100 Ml) 20 meq in 100 mls @ 50 mls/hr IVPB ONCE ONE Stop: 12/02/17 18:29 Last Admin: 12/02/17 16:26 Dose: 50 mls/hr Phenylephrine HCl 30 mg/ (Sodium Chloride) 253 mls @ 10.12 mls/hr IV .Q24H PRN ; Protocol; 20 MCG/MIN PRN Reason: TITRATE PER MD ORDER Insulin Aspart (Novolog) 0 unit SC Q6H ANA PRN Reason: Protocol Last Admin: 12/02/17 12:00 Dose: Not Given Latanoprost (Xalatan Opht) 0 ml OD HS [facility] Last Admin: 12/02/17 00:15 Dose: 2.5 ml Lorazepam (Ativan) 2 mg IVP Q4H PRN PRN Reason: Agitation Last Admin: 12/02/17 13:50 Dose: 2 mg Metoprolol Tartrate (Lopressor) 12.5 mg GT BID [facility] Last Admin: 12/02/17 10:41 Dose: 12.5 mg Rosuvastatin Calcium (Crestor) 5 mg PO HS [facility] Last Admin: 12/01/17 22:00 Dose: Not Given Thiamine HCl (Vitamin B1 Tab) 100 mg GT DAILY [facility] Last Admin: 12/02/17 10:41 Dose: 100 mg Results - Vital Signs Recent Vital Signs: Last Vital Signs Temp 99.5 F 12/02/17 16:00 Pulse 130 H 12/02/17 16:39 Resp 19 12/02/17 16:39 BP 102/61 12/02/17 16:39 Pulse Ox 100 12/02/17 16:39 - Labs Result Diagrams: 12/02/17 06:31 12/02/17 15:32 Labs: Laboratory Results - last 24 hr 12/01/17 12/01/17 12/01/17 20:48 20:48 20:48 WBC RBC Hgb Hct MCV MCH MCHC RDW Plt Count MPV Neut % (Auto) Lymph % (Auto) Rains % (Auto) Eos % (Auto) Baso % (Auto) Neut # (Auto) Lymph # (Auto) Rains # (Auto) Eos # (Auto) Baso # (Auto) Neutrophils % (Manual) Band Neutrophils % Lymphocytes % (Manual) Monocytes % (Manual) Toxic Granulation Platelet Estimate Large Platelets Giant Platelets Polychromasia Hypochromasia (manual) Anisocytosis (manual) D-Dimer, Quantitative 2791 H Puncture Site pCO2 pO2 HCO3 ABG pH ABG Total CO2 ABG O2 Saturation ABG Base Excess ABG Hemoglobin ABG Carboxyhemoglobin POC ABG HHb (Measured) ABG Methemoglobin Parviz Test ABG Potassium A-a O2 Difference Respiratory Index Hgb O2 Saturation Glucose Lactate Vent Mode Mechanical Rate FiO2 Tidal Volume PEEP Inspiratory BiPAP Expiratory BiPAP Crit Value Called To Crit Value Called By Crit Value Read Back Blood Gas Notified Time Sodium 142 Potassium 3.7 Chloride 107 Carbon Dioxide 23 Anion Gap 16 BUN 36 H Creatinine 1.2 Est GFR ( Amer) > 60 Est GFR (Non-Af Amer) 57 POC Glucose (mg/dL) Random Glucose 390 H Lactic Acid 3.5 H Calcium 8.0 L Phosphorus 2.9 Magnesium 1.9 Iron TIBC % Saturation Total Bilirubin AST ALT Alkaline Phosphatase Total Creatine Kinase CK-MB (Mass) Troponin I 0.2200 H* NT-Pro-B Natriuret Pep 28747 H Total Protein Albumin Globulin Albumin/Globulin Ratio Arterial Blood Potassium Fluid Type CSF Volume CSF Appearance CSF WBC CSF RBC CSF Total Cell Counted CSF Monos/Macrophages CSF Comment CSF Glucose CSF Total Protein CSF Cryptococcus Ag Stool Occult Blood Urine Opiates Screen Urine Methadone Screen Ur Barbiturates Screen Ur Phencyclidine Scrn Ur Amphetamines Screen U Benzodiazepines Scrn U Oth Cocaine Metabols U Cannabinoids Screen C. difficile Ag & Toxin H.influenzae Type B Ag N.meningitidis [id number] N.meningi B/E.coli K1 Ag Group B Strep Antigen S. pneumoniae Antigen 12/01/17 12/01/17 12/02/17 20:59 21:10 00:28 WBC RBC Hgb Hct MCV MCH MCHC RDW Plt Count MPV Neut % (Auto) Lymph % (Auto) Rains % (Auto) Eos % (Auto) Baso % (Auto) Neut # (Auto) Lymph # (Auto) Rains # (Auto) Eos # (Auto) Baso # (Auto) Neutrophils % (Manual) Band Neutrophils % Lymphocytes % (Manual) Monocytes % (Manual) Toxic Granulation Platelet Estimate Large Platelets Giant Platelets Polychromasia Hypochromasia (manual) Anisocytosis (manual) D-Dimer, Quantitative Puncture Site Rra Rr pCO2 27 L 34 L pO2 86 146 H HCO3 25.8 27.0 ABG pH 7.54 H 7.49 H ABG Total CO2 23.9 26.9 ABG O2 Saturation 99.2 H 99.7 H ABG Base Excess 1.1 2.6 ABG Hemoglobin 9.3 L 9.3 L ABG Carboxyhemoglobin 1.8 H 1.7 H POC ABG HHb (Measured) 0.8 0.3 ABG Methemoglobin 1.2 1.0 Parviz Test Pos Pos ABG Potassium A-a O2 Difference 94.0 168.0 Respiratory Index 1.1 1.2 Hgb O2 Saturation 96.1 97.0 Glucose Lactate Vent Mode Prvc Mechanical Rate 16 FiO2 30.0 50.0 Tidal Volume 500 PEEP 5 Inspiratory BiPAP 14 Expiratory BiPAP 7 Crit Value Called To Crit Value Called By Crit Value Read Back Blood Gas Notified Time Sodium Potassium Chloride Carbon Dioxide Anion Gap BUN Creatinine Est GFR ( Amer) Est GFR (Non-Af Amer) POC Glucose (mg/dL) Random Glucose Lactic Acid Calcium Phosphorus Magnesium Iron TIBC % Saturation Total Bilirubin AST ALT Alkaline Phosphatase Total Creatine Kinase CK-MB (Mass) Troponin I NT-Pro-B Natriuret Pep Total Protein Albumin Globulin Albumin/Globulin Ratio Arterial Blood Potassium Fluid Type CSF Volume CSF Appearance CSF WBC CSF RBC CSF Total Cell Counted CSF Monos/Macrophages CSF Comment CSF Glucose CSF Total Protein CSF Cryptococcus Ag Stool Occult Blood Urine Opiates Screen Negative Urine Methadone Screen Negative Ur Barbiturates Screen Negative Ur Phencyclidine Scrn Negative Ur Amphetamines Screen Negative U Benzodiazepines Scrn Negative U Oth Cocaine Metabols Negative U Cannabinoids Screen Negative C. difficile Ag & Toxin H.influenzae Type B Ag N.meningitidis [id number] N.meningi B/E.coli K1 Ag Group B Strep Antigen S. pneumoniae Antigen 12/02/17 12/02/17 12/02/17 00:41 04:56 06:31 WBC RBC Hgb Hct MCV MCH MCHC RDW Plt Count MPV Neut % (Auto) Lymph % (Auto) Rains % (Auto) Eos % (Auto) Baso % (Auto) Neut # (Auto) Lymph # (Auto) Rains # (Auto) Eos # (Auto) Baso # (Auto) Neutrophils % (Manual) Band Neutrophils % Lymphocytes % (Manual) Monocytes % (Manual) Toxic Granulation Platelet Estimate Large Platelets Giant Platelets Polychromasia Hypochromasia (manual) Anisocytosis (manual) D-Dimer, Quantitative Puncture Site Lr pCO2 22 L pO2 152 H HCO3 19.4 L ABG pH 7.44 ABG Total CO2 15.6 L ABG O2 Saturation 99.8 H ABG Base Excess -7.1 L ABG Hemoglobin ABG Carboxyhemoglobin POC ABG HHb (Measured) ABG Methemoglobin Parviz Test Pos ABG Potassium 2.0 L* A-a O2 Difference 177.0 Respiratory Index 1.2 Hgb O2 Saturation Glucose 121 H Lactate 1.5 Vent Mode Prvc Mechanical Rate 16 FiO2 50.0 Tidal Volume 500 PEEP 5 Inspiratory BiPAP Expiratory BiPAP Crit Value Called To Abbie rogers rn neonatal icu Crit Value Called By Tanisha rhodes rt Crit Value Read Back Y Blood Gas Notified Time 624 Sodium 151.0 H Potassium Chloride 124.0 H Carbon Dioxide Anion Gap BUN Creatinine Est GFR ( Amer) Est GFR (Non-Af Amer) POC Glucose (mg/dL) 319 H Random Glucose Lactic Acid Calcium Phosphorus Magnesium Iron < 10 L TIBC 182 L % Saturation 5.5 L Total Bilirubin AST ALT Alkaline Phosphatase Total Creatine Kinase CK-MB (Mass) Troponin I NT-Pro-B Natriuret Pep Total Protein Albumin Globulin Albumin/Globulin Ratio Arterial Blood Potassium 2.0 L* Fluid Type CSF Volume CSF Appearance CSF WBC CSF RBC CSF Total Cell Counted CSF Monos/Macrophages CSF Comment CSF Glucose CSF Total Protein CSF Cryptococcus Ag Stool Occult Blood Urine Opiates Screen Urine Methadone Screen Ur Barbiturates Screen Ur Phencyclidine Scrn Ur Amphetamines Screen U Benzodiazepines Scrn U Oth Cocaine Metabols U Cannabinoids Screen C. difficile Ag & Toxin H.influenzae Type B Ag N.meningitidis [id number] N.meningi B/E.coli K1 Ag Group B Strep Antigen S. pneumoniae Antigen 12/02/17 12/02/17 12/02/17 06:31 06:31 06:34 WBC 13.8 H RBC 3.59 L Hgb 9.4 L Hct 29.3 L MCV 81.6 MCH 26.2 L MCHC 32.1 L RDW 16.2 H Plt Count 235 MPV 10.5 Neut % (Auto) 96.1 H Lymph % (Auto) 1.0 L Rains % (Auto) 2.8 Eos % (Auto) 0.0 Baso % (Auto) 0.1 Neut # (Auto) 13.2 H Lymph # (Auto) 0.1 L Rains # (Auto) 0.4 Eos # (Auto) 0.0 Baso # (Auto) 0.0 Neutrophils % (Manual) 79 H Band Neutrophils % 18 H* Lymphocytes % (Manual) 1 L Monocytes % (Manual) 2 Toxic Granulation Present Platelet Estimate Normal Large Platelets Present Giant Platelets Present Polychromasia Slight Hypochromasia (manual) Slight Anisocytosis (manual) Slight D-Dimer, Quantitative Puncture Site pCO2 pO2 HCO3 ABG pH ABG Total CO2 ABG O2 Saturation ABG Base Excess ABG Hemoglobin ABG Carboxyhemoglobin POC ABG HHb (Measured) ABG Methemoglobin Parviz Test ABG Potassium A-a O2 Difference Respiratory Index Hgb O2 Saturation Glucose Lactate Vent Mode Mechanical Rate FiO2 Tidal Volume PEEP Inspiratory BiPAP Expiratory BiPAP Crit Value Called To Crit Value Called By Crit Value Read Back Blood Gas Notified Time Sodium 143 Potassium 3.5 L Chloride 107 Carbon Dioxide 23 Anion Gap 16 BUN 41 H Creatinine 1.5 Est GFR ( Amer) 53 Est GFR (Non-Af Amer) 44 POC Glucose (mg/dL) Random Glucose 171 H Lactic Acid 2.3 H Calcium 7.8 L Phosphorus 2.3 L Magnesium 1.9 Iron TIBC % Saturation Total Bilirubin 0.7 AST 17 D ALT 34 Alkaline Phosphatase 66 Total Creatine Kinase CK-MB (Mass) Troponin I 0.2880 H* NT-Pro-B Natriuret Pep Total Protein 5.6 L Albumin 2.8 L Globulin 2.8 Albumin/Globulin Ratio 1.0 Arterial Blood Potassium Fluid Type CSF Volume CSF Appearance CSF WBC CSF RBC CSF Total Cell Counted CSF Monos/Macrophages CSF Comment CSF Glucose CSF Total Protein CSF Cryptococcus Ag Stool Occult Blood Urine Opiates Screen Urine Methadone Screen Ur Barbiturates Screen Ur Phencyclidine Scrn Ur Amphetamines Screen U Benzodiazepines Scrn U Oth Cocaine Metabols U Cannabinoids Screen C. difficile Ag & Toxin H.influenzae Type B Ag N.meningitidis [id number] N.meningi B/E.coli K1 Ag Group B Strep Antigen S. pneumoniae Antigen 12/02/17 12/02/17 12/02/17 07:12 08:31 11:36 WBC RBC Hgb Hct MCV MCH MCHC RDW Plt Count MPV Neut % (Auto) Lymph % (Auto) Rains % (Auto) Eos % (Auto) Baso % (Auto) Neut # (Auto) Lymph # (Auto) Rains # (Auto) Eos # (Auto) Baso # (Auto) Neutrophils % (Manual) Band Neutrophils % Lymphocytes % (Manual) Monocytes % (Manual) Toxic Granulation Platelet Estimate Large Platelets Giant Platelets Polychromasia Hypochromasia (manual) Anisocytosis (manual) D-Dimer, Quantitative Puncture Site pCO2 pO2 HCO3 ABG pH ABG Total CO2 ABG O2 Saturation ABG Base Excess ABG Hemoglobin ABG Carboxyhemoglobin POC ABG HHb (Measured) ABG Methemoglobin Parviz Test ABG Potassium A-a O2 Difference Respiratory Index Hgb O2 Saturation Glucose Lactate Vent Mode Mechanical Rate FiO2 Tidal Volume PEEP Inspiratory BiPAP Expiratory BiPAP Crit Value Called To Crit Value Called By Crit Value Read Back Blood Gas Notified Time Sodium Potassium Chloride Carbon Dioxide Anion Gap BUN Creatinine Est GFR ( Amer) Est GFR (Non-Af Amer) POC Glucose (mg/dL) 184 H 185 H Random Glucose Lactic Acid Calcium Phosphorus Magnesium Iron TIBC % Saturation Total Bilirubin AST ALT Alkaline Phosphatase Total Creatine Kinase CK-MB (Mass) Troponin I NT-Pro-B Natriuret Pep Total Protein Albumin Globulin Albumin/Globulin Ratio Arterial Blood Potassium Fluid Type CSF Volume CSF Appearance CSF WBC CSF RBC CSF Total Cell Counted CSF Monos/Macrophages CSF Comment CSF Glucose CSF Total Protein CSF Cryptococcus Ag Stool Occult Blood Positive H Urine Opiates Screen Urine Methadone Screen Ur Barbiturates Screen Ur Phencyclidine Scrn Ur Amphetamines Screen U Benzodiazepines Scrn U Oth Cocaine Metabols U Cannabinoids Screen C. difficile Ag & Toxin H.influenzae Type B Ag N.meningitidis [id number] N.meningi B/E.coli K1 Ag Group B Strep Antigen S. pneumoniae Antigen 12/02/17 12/02/17 12/02/17 15:09 15:09 15:20 WBC RBC Hgb Hct MCV MCH MCHC RDW Plt Count MPV Neut % (Auto) Lymph % (Auto) Rains % (Auto) Eos % (Auto) Baso % (Auto) Neut # (Auto) Lymph # (Auto) Rains # (Auto) Eos # (Auto) Baso # (Auto) Neutrophils % (Manual) Band Neutrophils % Lymphocytes % (Manual) Monocytes % (Manual) Toxic Granulation Platelet Estimate Large Platelets Giant Platelets Polychromasia Hypochromasia (manual) Anisocytosis (manual) D-Dimer, Quantitative Puncture Site pCO2 pO2 HCO3 ABG pH ABG Total CO2 ABG O2 Saturation ABG Base Excess ABG Hemoglobin ABG Carboxyhemoglobin POC ABG HHb (Measured) ABG Methemoglobin Parviz Test ABG Potassium A-a O2 Difference Respiratory Index Hgb O2 Saturation Glucose Lactate Vent Mode Mechanical Rate FiO2 Tidal Volume PEEP Inspiratory BiPAP Expiratory BiPAP Crit Value Called To Crit Value Called By Crit Value Read Back Blood Gas Notified Time Sodium Potassium Chloride Carbon Dioxide Anion Gap BUN Creatinine Est GFR ( Amer) Est GFR (Non-Af Amer) POC Glucose (mg/dL) Random Glucose Lactic Acid Calcium Phosphorus Magnesium Iron TIBC % Saturation Total Bilirubin AST ALT Alkaline Phosphatase Total Creatine Kinase CK-MB (Mass) Troponin I NT-Pro-B Natriuret Pep Total Protein Albumin Globulin Albumin/Globulin Ratio Arterial Blood Potassium Fluid Type Spinal fluid CSF Volume 1 CSF Appearance Clear/colorless CSF WBC 0.0 CSF RBC 3.0 H CSF Total Cell Counted TEST NOT PERFORMED CSF Monos/Macrophages TEST NOT PERFORMED CSF Comment Diff. not needed CSF Glucose 108 H* CSF Total Protein 779.0 H* CSF Cryptococcus Ag Negative Stool Occult Blood Urine Opiates Screen Urine Methadone Screen Ur Barbiturates Screen Ur Phencyclidine Scrn Ur Amphetamines Screen U Benzodiazepines Scrn U Oth Cocaine Metabols U Cannabinoids Screen C. difficile Ag & Toxin H.influenzae Type B Ag Negative N.meningitidis [id number] Negative N.meningi B/E.coli K1 Ag Negative Group B Strep Antigen Negative S. pneumoniae Antigen Negative 12/02/17 12/02/17 12/02/17 15:32 15:32 16:00 WBC RBC Hgb Hct MCV MCH MCHC RDW Plt Count MPV Neut % (Auto) Lymph % (Auto) Rains % (Auto) Eos % (Auto) Baso % (Auto) Neut # (Auto) Lymph # (Auto) Rains # (Auto) Eos # (Auto) Baso # (Auto) Neutrophils % (Manual) Band Neutrophils % Lymphocytes % (Manual) Monocytes % (Manual) Toxic Granulation Platelet Estimate Large Platelets Giant Platelets Polychromasia Hypochromasia (manual) Anisocytosis (manual) D-Dimer, Quantitative Puncture Site pCO2 pO2 HCO3 ABG pH ABG Total CO2 ABG O2 Saturation ABG Base Excess ABG Hemoglobin ABG Carboxyhemoglobin POC ABG HHb (Measured) ABG Methemoglobin Parviz Test ABG Potassium A-a O2 Difference Respiratory Index Hgb O2 Saturation Glucose Lactate Vent Mode Mechanical Rate FiO2 Tidal Volume PEEP Inspiratory BiPAP Expiratory BiPAP Crit Value Called To Crit Value Called By Crit Value Read Back Blood Gas Notified Time Sodium 142 Potassium 3.5 L Chloride 109 H Carbon Dioxide 22 Anion Gap 15 BUN 47 H Creatinine 1.8 H Est GFR ( Amer) 43 Est GFR (Non-Af Amer) 36 POC Glucose (mg/dL) Random Glucose 196 H Lactic Acid Calcium 7.6 L Phosphorus 4.7 H Magnesium Iron TIBC % Saturation Total Bilirubin AST ALT Alkaline Phosphatase Total Creatine Kinase 35 L CK-MB (Mass) 0.99 Troponin I 0.4100 H* NT-Pro-B Natriuret Pep Total Protein Albumin Globulin Albumin/Globulin Ratio Arterial Blood Potassium Fluid Type CSF Volume CSF Appearance CSF WBC CSF RBC CSF Total Cell Counted CSF Monos/Macrophages CSF Comment CSF Glucose CSF Total Protein CSF Cryptococcus Ag Stool Occult Blood Urine Opiates Screen Urine Methadone Screen Ur Barbiturates Screen Ur Phencyclidine Scrn Ur Amphetamines Screen U Benzodiazepines Scrn U Oth Cocaine Metabols U Cannabinoids Screen C. difficile Ag & Toxin Negative H.influenzae Type B Ag N.meningitidis [id number] N.meningi B/E.coli K1 Ag Group B Strep Antigen S. pneumoniae Antigen
--- NOTE | 2017-12-02 20:07 | CP.CCUPN ---
CCU Subjective - Physician Review Subjective (Free Text): Patient intubated in evening with fevers, suspect aspiration 12/02/17 20:04 Critical Care Time Spent (in minutes): 40 CCU Objective - Vital Signs / Intake & Output Vital Signs (Last 4 hours): Vital Signs Pulse Resp BP Pulse Ox 12/02/17 18:18 91/50 L 12/02/17 18:00 133 H 21 91/55 L 99 12/02/17 17:00 131 H 20 110/65 100 12/02/17 16:39 130 H 19 102/61 100 12/02/17 16:15 130 H 17 86/50 L 100 Intake and Output (Last 8hrs): Intake & Output 12/02/17 12/02/17 12/02/17 06:59 14:59 22:59 Intake Total 1506.5 1780 1455 Output Total 50 90 30 Balance 1456.5 1690 1425 Weight 150 lb Intake: IV 140 135 87 Intake, IV Amount 1366.5 1405 1368 Right Distal Port Femoral 700 875 300 Right Medial Port Femoral 266.5 310 1000 Right Proximal Port 400.0 220 68 Femoral Tube Feeding 240 Output: Urine 50 90 30 Urethral (Morgan) 50 90 30 Other: # Bowel Movements 1 0 - Physical Exam Head: Positive for: Atraumatic, Normocephalic Pupils: Positive for: PERRL Cardiovascular: Positive for: Normal S1, S2, Tachycardic Abdomen: Positive for: Normal Bowel Sounds. Negative for: Peritoneal Signs Upper Extremity: Positive for: Normal Inspection Lower Extremity: Positive for: Normal Inspection Neurological: Negative for: GCS=15, CN II-XII Intact - Medications Active Medications: Active Medications Generic Name Dose Route Start Last Admin Trade Name Freq PRN Reason Stop Dose Admin Acetaminophen 650 mg 12/02/17 07:49 12/02/17 09:03 Tylenol 650mg/20.3ml Solution Ud PO 650 mg Q6 PRN Administration fever Aspirin 81 mg 12/02/17 10:00 12/02/17 10:41 Aspirin Chewable PO 81 mg DAILY ANA Administration Famotidine 20 mg 12/02/17 16:15 12/02/17 16:37 Pepcid IVP 20 mg DAILY ANA Administration Folic Acid 1 mg 12/02/17 10:00 12/02/17 10:41 Folic Acid PO 1 mg DAILY ANA Administration Acyclovir 500 mg/ Sodium 100 mls @ 100 mls/hr 12/01/17 20:00 12/02/17 13:09 Chloride IV 100 mls/hr Q8H ANA Administration Aztreonam 2 gm/ Sodium 100 mls @ 100 mls/hr 12/01/17 20:00 12/02/17 11:24 Chloride IVPB 100 mls/hr Q8H ANA Administration Moxifloxacin HCl 400 mg in 250 mls @ 167 mls/hr 12/02/17 13:00 12/02/17 13:05 Avelox Iv 400mg/250ml Ns IVPB 167 mls/hr Q24H ANA Administration Vancomycin/Sodium Chloride 1 gm in 200 mls @ 133 mls/hr 12/02/17 15:00 14:54 Vancomycin 1 Gm/Ns 200 Ml IVPB 12/07/17 15:01 133 mls/hr Q24H ANA Administration Phenylephrine HCl 60 mg/ 256 mls @ 5.11 mls/hr 12/02/17 03:45 12/02/17 16:16 Sodium Chloride IV 150 mcg/min .Q24H PRN 38.4 mls/hr TITRATE PER MD ORDER Titration Protocol 20 MCG/MIN Sodium Chloride 1,000 mls @ 75 mls/hr 12/02/17 07:30 12/02/17 07:50 Sodium Chloride 0.9% IV 75 mls/hr .[id number] ANA Administration Verapamil HCl 40 mg/ Sodium 100 mls @ 12.5 mls/hr 12/02/17 16:00 12/02/17 17: 26 Chloride IV 12.5 mls/hr .Q8H ANA Administration Protocol 5 MG/HR Phenylephrine HCl 30 mg/ 253 mls @ 10.12 mls/hr 12/02/17 16:04 Sodium Chloride IV .Q24H PRN TITRATE PER MD ORDER Protocol 20 MCG/MIN Insulin Aspart 0 unit 12/02/17 00:00 12/02/17 18:19 Novolog SC Not Given Q6H ANA Protocol Latanoprost 0 ml 12/01/17 23:45 12/02/17 00:15 Xalatan Opht OD 2.5 ml HS ANA Administration Lorazepam 2 mg 12/01/17 23:00 12/02/17 13:50 Ativan IVP 2 mg Q4H PRN Administration Agitation Metoprolol Tartrate 12.5 mg 12/02/17 10:00 12/02/17 18:18 Lopressor GT Not Given BID ANA Rosuvastatin Calcium 5 mg 12/01/17 22:00 12/01/17 22:00 Crestor PO Not Given HS ANA Thiamine HCl 100 mg 12/02/17 10:00 12/02/17 10:41 Vitamin B1 Tab GT 100 mg DAILY ANA Administration - Patient Studies Lab Studies: Microbiology Studies 12/01/17 10:50 S.aureus & Coag-Neg Staph PNA FISH - Final Blood Blood Culture - Preliminary Gram Positive Cocci Gram Stain - Final 12/01/17 11:25 Blood Culture - Preliminary Blood NO GROWTH AFTER 24 HOURS 12/02/17 15:17 Gram Stain - Final Trachasp 12/02/17 15:20 Gram Stain - Final Cerebral Spinal Fluid 12/01/17 10:37 Urine Culture - Final Urine No Growth (<1,000 CFU/ML) 12/01/17 Unknown Gram Stain - Final Trachasp Lab Studies 12/02/17 12/02/17 12/02/17 Range/Units 17:53 16:00 15:32 WBC (4.8-10.8) K/uL RBC (4.40-5.90) Mil/uL Hgb (12.0-18.0) g/dL Hct (35.0-51.0) % MCV (80.0-94.0) fL MCH (27.0-31.0) pg MCHC (33.0-37.0) g/dL RDW (11.5-14.5) % Plt Count (130-400) K/uL MPV (7.2-11.7) fL Neut % (Auto) (50.0-75.0) % Lymph % (Auto) (20.0-40.0) % [place] % (Auto) (0.0-10.0) % Eos % (Auto) (0.0-4.0) % Baso % (Auto) (0.0-2.0) % Neut # (Auto) (1.8-7.0) K/uL Lymph # (Auto) (1.0-4.3) K/uL [place] # (Auto) (0.0-0.8) K/uL Eos # (Auto) (0.0-0.7) K/uL Baso # (Auto) (0.0-0.2) K/uL Neutrophils % (Manual) (50-75) % Band Neutrophils % (0-2) % Lymphocytes % (Manual) (20-40) % Monocytes % (Manual) (0-10) % Toxic Granulation Platelet Estimate (NORMAL) Large Platelets Giant Platelets Polychromasia Hypochromasia (manual) Anisocytosis (manual) D-Dimer, Quantitative (0-243) ng/mlDDU Puncture Site pCO2 (35-45) mm/Hg pO2 (80-100) mm/Hg HCO3 (21-28) mmol/L ABG pH (7.35-7.45) ABG Total CO2 (22-28) mmol/L ABG O2 Saturation (95-98) % ABG Base Excess (-2.0-3.0) mmol/L ABG Hemoglobin (11.7-17.4) g/dL ABG Carboxyhemoglobin (0.5-1.5) % POC ABG HHb (Measured) (0.0-5.0) % ABG Methemoglobin (0.0-3.0) % Parviz Test ABG Potassium (3.6-5.2) mmol/L A-a O2 Difference mm/Hg Respiratory Index Hgb O2 Saturation (95.0-98.0) % Glucose (75-110) mg/dl Lactate (0.7-2.1) mmol/L Vent Mode Mechanical Rate FiO2 % Tidal Volume PEEP Inspiratory BiPAP Expiratory BiPAP Crit Value Called To Crit Value Called By Crit Value Read Back Blood Gas Notified Time Sodium (132-148) mmol/L Potassium (3.6-5.2) mmol/L Chloride (98-107) mmol/L Carbon Dioxide (22-30) mmol/L Anion Gap (10-20) BUN (9-20) mg/dL Creatinine (0.8-1.5) mg/dL Est GFR ( Amer) Est GFR (Non-Af Amer) POC Glucose (mg/dL) 195 H (65-110) mg/dL Random Glucose (75-110) mg/dL Lactic Acid (0.7-2.1) mmol/L Calcium (8.6-10.4) mg/dl Phosphorus (2.5-4.5) mg/dL Magnesium (1.6-2.3) mg/dL Iron (49-181) ug/dL TIBC (250-450) ug/dL % Saturation (20-55) Total Bilirubin (0.2-1.3) mg/dL AST (17-59) U/L ALT (21-72) U/L Alkaline Phosphatase (38-126) U/L Total Creatine Kinase 35 L (55-170) U/L CK-MB (Mass) 0.99 (0.0-3.38) ng/mL Troponin I 0.4100 H* (0.00-0.120) ng/mL NT-Pro-B Natriuret Pep (0-900) pg/mL Total Protein (6.3-8.3) g/dL Albumin (3.5-5.0) g/dL Globulin (2.2-3.9) gm/dL Albumin/Globulin Ratio (1.0-2.1) Arterial Blood Potassium (3.6-5.2) mmol/L Fluid Type CSF Volume (0-1) mL CSF Appearance (CLEAR) CSF WBC (0.0-5.0) /mm3 CSF RBC (0.0-0.0) /mm3 CSF Total Cell Counted CSF Monos/Macrophages CSF Comment CSF Glucose (40-70) mg/dL CSF Total Protein (12-60) mg/dL CSF Cryptococcus Ag (NEGATIVE) Stool Occult Blood (NEGATIVE) Urine Opiates Screen (NEGATIVE) Urine Methadone Screen (NEGATIVE) Ur Barbiturates Screen (NEGATIVE) Ur Phencyclidine Scrn (NEGATIVE) Ur Amphetamines Screen (NEGATIVE) U Benzodiazepines Scrn (NEGATIVE) U Oth Cocaine Metabols (NEGATIVE) U Cannabinoids Screen (NEGATIVE) C. difficile Ag & Toxin Negative (NEGATIVE) H.influenzae Type B Ag (NEGATIVE) N.meningitidis ACY/W135 (NEGATIVE) N.meningi B/E.coli K1 Ag (NEGATIVE) Group B Strep Antigen (NEGATIVE) S. pneumoniae Antigen (NEGATIVE) 12/02/17 12/02/17 12/02/17 Range/Units 15:32 15:20 15:09 WBC (4.8-10.8) K/uL RBC (4.40-5.90) Mil/uL Hgb (12.0-18.0) g/dL Hct (35.0-51.0) % MCV (80.0-94.0) fL MCH (27.0-31.0) pg MCHC (33.0-37.0) g/dL RDW (11.5-14.5) % Plt Count (130-400) K/uL MPV (7.2-11.7) fL Neut % (Auto) (50.0-75.0) % Lymph % (Auto) (20.0-40.0) % [place] % (Auto) (0.0-10.0) % Eos % (Auto) (0.0-4.0) % Baso % (Auto) (0.0-2.0) % Neut # (Auto) (1.8-7.0) K/uL Lymph # (Auto) (1.0-4.3) K/uL [place] # (Auto) (0.0-0.8) K/uL Eos # (Auto) (0.0-0.7) K/uL Baso # (Auto) (0.0-0.2) K/uL Neutrophils % (Manual) (50-75) % Band Neutrophils % (0-2) % Lymphocytes % (Manual) (20-40) % Monocytes % (Manual) (0-10) % Toxic Granulation Platelet Estimate (NORMAL) Large Platelets Giant Platelets Polychromasia Hypochromasia (manual) Anisocytosis (manual) D-Dimer, Quantitative (0-243) ng/mlDDU Puncture Site pCO2 (35-45) mm/Hg pO2 (80-100) mm/Hg HCO3 (21-28) mmol/L ABG pH (7.35-7.45) ABG Total CO2 (22-28) mmol/L ABG O2 Saturation (95-98) % ABG Base Excess (-2.0-3.0) mmol/L ABG Hemoglobin (11.7-17.4) g/dL ABG Carboxyhemoglobin (0.5-1.5) % POC ABG HHb (Measured) (0.0-5.0) % ABG Methemoglobin (0.0-3.0) % Parviz Test ABG Potassium (3.6-5.2) mmol/L A-a O2 Difference mm/Hg Respiratory Index Hgb O2 Saturation (95.0-98.0) % Glucose (75-110) mg/dl Lactate (0.7-2.1) mmol/L Vent Mode Mechanical Rate FiO2 % Tidal Volume PEEP Inspiratory BiPAP Expiratory BiPAP Crit Value Called To Crit Value Called By Crit Value Read Back Blood Gas Notified Time Sodium 142 (132-148) mmol/L Potassium 3.5 L (3.6-5.2) mmol/L Chloride 109 H (98-107) mmol/L Carbon Dioxide 22 (22-30) mmol/L Anion Gap 15 (10-20) BUN 47 H (9-20) mg/dL Creatinine 1.8 H (0.8-1.5) mg/dL Est GFR ( Amer) 43 Est GFR (Non-Af Amer) 36 POC Glucose (mg/dL) (65-110) mg/dL Random Glucose 196 H (75-110) mg/dL Lactic Acid (0.7-2.1) mmol/L Calcium 7.6 L (8.6-10.4) mg/dl Phosphorus 4.7 H (2.5-4.5) mg/dL Magnesium (1.6-2.3) mg/dL Iron (49-181) ug/dL TIBC (250-450) ug/dL % Saturation (20-55) Total Bilirubin (0.2-1.3) mg/dL AST (17-59) U/L ALT (21-72) U/L Alkaline Phosphatase (38-126) U/L Total Creatine Kinase (55-170) U/L CK-MB (Mass) (0.0-3.38) ng/mL Troponin I (0.00-0.120) ng/mL NT-Pro-B Natriuret Pep (0-900) pg/mL Total Protein (6.3-8.3) g/dL Albumin (3.5-5.0) g/dL Globulin (2.2-3.9) gm/dL Albumin/Globulin Ratio (1.0-2.1) Arterial Blood Potassium (3.6-5.2) mmol/L Fluid Type CSF Volume (0-1) mL CSF Appearance (CLEAR) CSF WBC (0.0-5.0) /mm3 CSF RBC (0.0-0.0) /mm3 CSF Total Cell Counted CSF Monos/Macrophages CSF Comment CSF Glucose 108 H* (40-70) mg/dL CSF Total Protein 779.0 H* (12-60) mg/dL CSF Cryptococcus Ag Negative (NEGATIVE) Stool Occult Blood (NEGATIVE) Urine Opiates Screen (NEGATIVE) Urine Methadone Screen (NEGATIVE) Ur Barbiturates Screen (NEGATIVE) Ur Phencyclidine Scrn (NEGATIVE) Ur Amphetamines Screen (NEGATIVE) U Benzodiazepines Scrn (NEGATIVE) U Oth Cocaine Metabols (NEGATIVE) U Cannabinoids Screen (NEGATIVE) C. difficile Ag & Toxin (NEGATIVE) H.influenzae Type B Ag Negative (NEGATIVE) N.meningitidis ACY/W135 Negative (NEGATIVE) N.meningi B/E.coli K1 Ag Negative (NEGATIVE) Group B Strep Antigen Negative (NEGATIVE) S. pneumoniae Antigen Negative (NEGATIVE) 12/02/17 12/02/17 12/02/17 Range/Units 15:09 11:36 08:31 WBC (4.8-10.8) K/uL RBC (4.40-5.90) Mil/uL Hgb (12.0-18.0) g/dL Hct (35.0-51.0) % MCV (80.0-94.0) fL MCH (27.0-31.0) pg MCHC (33.0-37.0) g/dL RDW (11.5-14.5) % Plt Count (130-400) K/uL MPV (7.2-11.7) fL Neut % (Auto) (50.0-75.0) % Lymph % (Auto) (20.0-40.0) % [place] % (Auto) (0.0-10.0) % Eos % (Auto) (0.0-4.0) % Baso % (Auto) (0.0-2.0) % Neut # (Auto) (1.8-7.0) K/uL Lymph # (Auto) (1.0-4.3) K/uL [place] # (Auto) (0.0-0.8) K/uL Eos # (Auto) (0.0-0.7) K/uL Baso # (Auto) (0.0-0.2) K/uL Neutrophils % (Manual) (50-75) % Band Neutrophils % (0-2) % Lymphocytes % (Manual) (20-40) % Monocytes % (Manual) (0-10) % Toxic Granulation Platelet Estimate (NORMAL) Large Platelets Giant Platelets Polychromasia Hypochromasia (manual) Anisocytosis (manual) D-Dimer, Quantitative (0-243) ng/mlDDU Puncture Site pCO2 (35-45) mm/Hg pO2 (80-100) mm/Hg HCO3 (21-28) mmol/L ABG pH (7.35-7.45) ABG Total CO2 (22-28) mmol/L ABG O2 Saturation (95-98) % ABG Base Excess (-2.0-3.0) mmol/L ABG Hemoglobin (11.7-17.4) g/dL ABG Carboxyhemoglobin (0.5-1.5) % POC ABG HHb (Measured) (0.0-5.0) % ABG Methemoglobin (0.0-3.0) % Parviz Test ABG Potassium (3.6-5.2) mmol/L A-a O2 Difference mm/Hg Respiratory Index Hgb O2 Saturation (95.0-98.0) % Glucose (75-110) mg/dl Lactate (0.7-2.1) mmol/L Vent Mode Mechanical Rate FiO2 % Tidal Volume PEEP Inspiratory BiPAP Expiratory BiPAP Crit Value Called To Crit Value Called By Crit Value Read Back Blood Gas Notified Time Sodium (132-148) mmol/L Potassium (3.6-5.2) mmol/L Chloride (98-107) mmol/L Carbon Dioxide (22-30) mmol/L Anion Gap (10-20) BUN (9-20) mg/dL Creatinine (0.8-1.5) mg/dL Est GFR ( Amer) Est GFR (Non-Af Amer) POC Glucose (mg/dL) 185 H (65-110) mg/dL Random Glucose (75-110) mg/dL Lactic Acid (0.7-2.1) mmol/L Calcium (8.6-10.4) mg/dl Phosphorus (2.5-4.5) mg/dL Magnesium (1.6-2.3) mg/dL Iron (49-181) ug/dL TIBC (250-450) ug/dL % Saturation (20-55) Total Bilirubin (0.2-1.3) mg/dL AST (17-59) U/L ALT (21-72) U/L Alkaline Phosphatase (38-126) U/L Total Creatine Kinase (55-170) U/L CK-MB (Mass) (0.0-3.38) ng/mL Troponin I (0.00-0.120) ng/mL NT-Pro-B Natriuret Pep (0-900) pg/mL Total Protein (6.3-8.3) g/dL Albumin (3.5-5.0) g/dL Globulin (2.2-3.9) gm/dL Albumin/Globulin Ratio (1.0-2.1) Arterial Blood Potassium (3.6-5.2) mmol/L Fluid Type Spinal fluid CSF Volume 1 (0-1) mL CSF Appearance Clear/colorless (CLEAR) CSF WBC 0.0 (0.0-5.0) /mm3 CSF RBC 3.0 H (0.0-0.0) /mm3 CSF Total Cell Counted TEST NOT PERFORMED CSF Monos/Macrophages TEST NOT PERFORMED CSF Comment Diff. not needed CSF Glucose (40-70) mg/dL CSF Total Protein (12-60) mg/dL CSF Cryptococcus Ag (NEGATIVE) Stool Occult Blood Positive H (NEGATIVE) Urine Opiates Screen (NEGATIVE) Urine Methadone Screen (NEGATIVE) Ur Barbiturates Screen (NEGATIVE) Ur Phencyclidine Scrn (NEGATIVE) Ur Amphetamines Screen (NEGATIVE) U Benzodiazepines Scrn (NEGATIVE) U Oth Cocaine Metabols (NEGATIVE) U Cannabinoids Screen (NEGATIVE) C. difficile Ag & Toxin (NEGATIVE) H.influenzae Type B Ag (NEGATIVE) N.meningitidis ACY/W135 (NEGATIVE) N.meningi B/E.coli K1 Ag (NEGATIVE) Group B Strep Antigen (NEGATIVE) S. pneumoniae Antigen (NEGATIVE) 12/02/17 12/02/17 12/02/17 Range/Units 07:12 06:34 06:31 WBC 13.8 H (4.8-10.8) K/uL RBC 3.59 L (4.40-5.90) Mil/uL Hgb 9.4 L (12.0-18.0) g/dL Hct 29.3 L (35.0-51.0) % MCV 81.6 (80.0-94.0) fL MCH 26.2 L (27.0-31.0) pg MCHC 32.1 L (33.0-37.0) g/dL RDW 16.2 H (11.5-14.5) % Plt Count 235 (130-400) K/uL MPV 10.5 (7.2-11.7) fL Neut % (Auto) 96.1 H (50.0-75.0) % Lymph % (Auto) 1.0 L (20.0-40.0) % [place] % (Auto) 2.8 (0.0-10.0) % Eos % (Auto) 0.0 (0.0-4.0) % Baso % (Auto) 0.1 (0.0-2.0) % Neut # (Auto) 13.2 H (1.8-7.0) K/uL Lymph # (Auto) 0.1 L (1.0-4.3) K/uL [place] # (Auto) 0.4 (0.0-0.8) K/uL Eos # (Auto) 0.0 (0.0-0.7) K/uL Baso # (Auto) 0.0 (0.0-0.2) K/uL Neutrophils % (Manual) 79 H (50-75) % Band Neutrophils % 18 H* (0-2) % Lymphocytes % (Manual) 1 L (20-40) % Monocytes % (Manual) 2 (0-10) % Toxic Granulation Present Platelet Estimate Normal (NORMAL) Large Platelets Present Giant Platelets Present Polychromasia Slight Hypochromasia (manual) Slight Anisocytosis (manual) Slight D-Dimer, Quantitative (0-243) ng/mlDDU Puncture Site pCO2 (35-45) mm/Hg pO2 (80-100) mm/Hg HCO3 (21-28) mmol/L ABG pH (7.35-7.45) ABG Total CO2 (22-28) mmol/L ABG O2 Saturation (95-98) % ABG Base Excess (-2.0-3.0) mmol/L ABG Hemoglobin (11.7-17.4) g/dL ABG Carboxyhemoglobin (0.5-1.5) % POC ABG HHb (Measured) (0.0-5.0) % ABG Methemoglobin (0.0-3.0) % Parviz Test ABG Potassium (3.6-5.2) mmol/L A-a O2 Difference mm/Hg Respiratory Index Hgb O2 Saturation (95.0-98.0) % Glucose (75-110) mg/dl Lactate (0.7-2.1) mmol/L Vent Mode Mechanical Rate FiO2 % Tidal Volume PEEP Inspiratory BiPAP Expiratory BiPAP Crit Value Called To Crit Value Called By Crit Value Read Back Blood Gas Notified Time Sodium (132-148) mmol/L Potassium (3.6-5.2) mmol/L Chloride (98-107) mmol/L Carbon Dioxide (22-30) mmol/L Anion Gap (10-20) BUN (9-20) mg/dL Creatinine (0.8-1.5) mg/dL Est GFR ( Amer) Est GFR (Non-Af Amer) POC Glucose (mg/dL) 184 H (65-110) mg/dL Random Glucose (75-110) mg/dL Lactic Acid 2.3 H (0.7-2.1) mmol/L Calcium (8.6-10.4) mg/dl Phosphorus (2.5-4.5) mg/dL Magnesium (1.6-2.3) mg/dL Iron (49-181) ug/dL TIBC (250-450) ug/dL % Saturation (20-55) Total Bilirubin (0.2-1.3) mg/dL AST (17-59) U/L ALT (21-72) U/L Alkaline Phosphatase (38-126) U/L Total Creatine Kinase (55-170) U/L CK-MB (Mass) (0.0-3.38) ng/mL Troponin I (0.00-0.120) ng/mL NT-Pro-B Natriuret Pep (0-900) pg/mL Total Protein (6.3-8.3) g/dL Albumin (3.5-5.0) g/dL Globulin (2.2-3.9) gm/dL Albumin/Globulin Ratio (1.0-2.1) Arterial Blood Potassium (3.6-5.2) mmol/L Fluid Type CSF Volume (0-1) mL CSF Appearance (CLEAR) CSF WBC (0.0-5.0) /mm3 CSF RBC (0.0-0.0) /mm3 CSF Total Cell Counted CSF Monos/Macrophages CSF Comment CSF Glucose (40-70) mg/dL CSF Total Protein (12-60) mg/dL CSF Cryptococcus Ag (NEGATIVE) Stool Occult Blood (NEGATIVE) Urine Opiates Screen (NEGATIVE) Urine Methadone Screen (NEGATIVE) Ur Barbiturates Screen (NEGATIVE) Ur Phencyclidine Scrn (NEGATIVE) Ur Amphetamines Screen (NEGATIVE) U Benzodiazepines Scrn (NEGATIVE) U Oth Cocaine Metabols (NEGATIVE) U Cannabinoids Screen (NEGATIVE) C. difficile Ag & Toxin (NEGATIVE) H.influenzae Type B Ag (NEGATIVE) N.meningitidis ACY/W135 (NEGATIVE) N.meningi B/E.coli K1 Ag (NEGATIVE) Group B Strep Antigen (NEGATIVE) S. pneumoniae Antigen (NEGATIVE) 12/02/17 12/02/17 12/02/17 Range/Units 06:31 06:31 04:56 WBC (4.8-10.8) K/uL RBC (4.40-5.90) Mil/uL Hgb (12.0-18.0) g/dL Hct (35.0-51.0) % MCV (80.0-94.0) fL MCH (27.0-31.0) pg MCHC (33.0-37.0) g/dL RDW (11.5-14.5) % Plt Count (130-400) K/uL MPV (7.2-11.7) fL Neut % (Auto) (50.0-75.0) % Lymph % (Auto) (20.0-40.0) % [place] % (Auto) (0.0-10.0) % Eos % (Auto) (0.0-4.0) % Baso % (Auto) (0.0-2.0) % Neut # (Auto) (1.8-7.0) K/uL Lymph # (Auto) (1.0-4.3) K/uL [place] # (Auto) (0.0-0.8) K/uL Eos # (Auto) (0.0-0.7) K/uL Baso # (Auto) (0.0-0.2) K/uL Neutrophils % (Manual) (50-75) % Band Neutrophils % (0-2) % Lymphocytes % (Manual) (20-40) % Monocytes % (Manual) (0-10) % Toxic Granulation Platelet Estimate (NORMAL) Large Platelets Giant Platelets Polychromasia Hypochromasia (manual) Anisocytosis (manual) D-Dimer, Quantitative (0-243) ng/mlDDU Puncture Site Lr pCO2 22 L (35-45) mm/Hg pO2 152 H (80-100) mm/Hg HCO3 19.4 L (21-28) mmol/L ABG pH 7.44 (7.35-7.45) ABG Total CO2 15.6 L (22-28) mmol/L ABG O2 Saturation 99.8 H (95-98) % ABG Base Excess -7.1 L (-2.0-3.0) mmol/L ABG Hemoglobin (11.7-17.4) g/dL ABG Carboxyhemoglobin (0.5-1.5) % POC ABG HHb (Measured) (0.0-5.0) % ABG Methemoglobin (0.0-3.0) % Parviz Test Pos ABG Potassium 2.0 L* (3.6-5.2) mmol/L A-a O2 Difference 177.0 mm/Hg Respiratory Index 1.2 Hgb O2 Saturation (95.0-98.0) % Glucose 121 H (75-110) mg/dl Lactate 1.5 (0.7-2.1) mmol/L Vent Mode Prvc Mechanical Rate 16 FiO2 50.0 % Tidal Volume 500 PEEP 5 Inspiratory BiPAP Expiratory BiPAP 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 Crit Value Called By Tanisha rhodes rt Crit Value Read Back Y Blood Gas Notified Time 624 Sodium 143 151.0 H (132-148) mmol/L Potassium 3.5 L (3.6-5.2) mmol/L Chloride 107 124.0 H (98-107) mmol/L Carbon Dioxide 23 (22-30) mmol/L Anion Gap 16 (10-20) BUN 41 H (9-20) mg/dL Creatinine 1.5 (0.8-1.5) mg/dL Est GFR ( Amer) 53 Est GFR (Non-Af Amer) 44 POC Glucose (mg/dL) (65-110) mg/dL Random Glucose 171 H (75-110) mg/dL Lactic Acid (0.7-2.1) mmol/L Calcium 7.8 L (8.6-10.4) mg/dl Phosphorus 2.3 L (2.5-4.5) mg/dL Magnesium 1.9 (1.6-2.3) mg/dL Iron < 10 L (49-181) ug/dL TIBC 182 L (250-450) ug/dL % Saturation 5.5 L (20-55) Total Bilirubin 0.7 (0.2-1.3) mg/dL AST 17 D (17-59) U/L ALT 34 (21-72) U/L Alkaline Phosphatase 66 (38-126) U/L Total Creatine Kinase (55-170) U/L CK-MB (Mass) (0.0-3.38) ng/mL Troponin I 0.2880 H* (0.00-0.120) ng/mL NT-Pro-B Natriuret Pep (0-900) pg/mL Total Protein 5.6 L (6.3-8.3) g/dL Albumin 2.8 L (3.5-5.0) g/dL Globulin 2.8 (2.2-3.9) gm/dL Albumin/Globulin Ratio 1.0 (1.0-2.1) Arterial Blood Potassium 2.0 L* (3.6-5.2) mmol/L Fluid Type CSF Volume (0-1) mL CSF Appearance (CLEAR) CSF WBC (0.0-5.0) /mm3 CSF RBC (0.0-0.0) /mm3 CSF Total Cell Counted CSF Monos/Macrophages CSF Comment CSF Glucose (40-70) mg/dL CSF Total Protein (12-60) mg/dL CSF Cryptococcus Ag (NEGATIVE) Stool Occult Blood (NEGATIVE) Urine Opiates Screen (NEGATIVE) Urine Methadone Screen (NEGATIVE) Ur Barbiturates Screen (NEGATIVE) Ur Phencyclidine Scrn (NEGATIVE) Ur Amphetamines Screen (NEGATIVE) U Benzodiazepines Scrn (NEGATIVE) U Oth Cocaine Metabols (NEGATIVE) U Cannabinoids Screen (NEGATIVE) C. difficile Ag & Toxin (NEGATIVE) H.influenzae Type B Ag (NEGATIVE) N.meningitidis ACY/W135 (NEGATIVE) N.meningi B/E.coli K1 Ag (NEGATIVE) Group B Strep Antigen (NEGATIVE) S. pneumoniae Antigen (NEGATIVE) 12/02/17 12/02/17 12/01/17 Range/Units 00:41 00:28 21:10 WBC (4.8-10.8) K/uL RBC (4.40-5.90) Mil/uL Hgb (12.0-18.0) g/dL Hct (35.0-51.0) % MCV (80.0-94.0) fL MCH (27.0-31.0) pg MCHC (33.0-37.0) g/dL RDW (11.5-14.5) % Plt Count (130-400) K/uL MPV (7.2-11.7) fL Neut % (Auto) (50.0-75.0) % Lymph % (Auto) (20.0-40.0) % [place] % (Auto) (0.0-10.0) % Eos % (Auto) (0.0-4.0) % Baso % (Auto) (0.0-2.0) % Neut # (Auto) (1.8-7.0) K/uL Lymph # (Auto) (1.0-4.3) K/uL [place] # (Auto) (0.0-0.8) K/uL Eos # (Auto) (0.0-0.7) K/uL Baso # (Auto) (0.0-0.2) K/uL Neutrophils % (Manual) (50-75) % Band Neutrophils % (0-2) % Lymphocytes % (Manual) (20-40) % Monocytes % (Manual) (0-10) % Toxic Granulation Platelet Estimate (NORMAL) Large Platelets Giant Platelets Polychromasia Hypochromasia (manual) Anisocytosis (manual) D-Dimer, Quantitative (0-243) ng/mlDDU Puncture Site Rr Rra pCO2 34 L 27 L (35-45) mm/Hg pO2 146 H 86 (80-100) mm/Hg HCO3 27.0 25.8 (21-28) mmol/L ABG pH 7.49 H 7.54 H (7.35-7.45) ABG Total CO2 26.9 23.9 (22-28) mmol/L ABG O2 Saturation 99.7 H 99.2 H (95-98) % ABG Base Excess 2.6 1.1 (-2.0-3.0) mmol/L ABG Hemoglobin 9.3 L 9.3 L (11.7-17.4) g/dL ABG Carboxyhemoglobin 1.7 H 1.8 H (0.5-1.5) % POC ABG HHb (Measured) 0.3 0.8 (0.0-5.0) % ABG Methemoglobin 1.0 1.2 (0.0-3.0) % Parviz Test Pos Pos ABG Potassium (3.6-5.2) mmol/L A-a O2 Difference 168.0 94.0 mm/Hg Respiratory Index 1.2 1.1 Hgb O2 Saturation 97.0 96.1 (95.0-98.0) % Glucose (75-110) mg/dl Lactate (0.7-2.1) mmol/L Vent Mode Prvc Mechanical Rate 16 FiO2 50.0 30.0 % Tidal Volume 500 PEEP 5 Inspiratory BiPAP 14 Expiratory BiPAP 7 Crit Value Called To Crit Value Called By Crit Value Read Back Blood Gas Notified Time Sodium (132-148) mmol/L Potassium (3.6-5.2) mmol/L Chloride (98-107) mmol/L Carbon Dioxide (22-30) mmol/L Anion Gap (10-20) BUN (9-20) mg/dL Creatinine (0.8-1.5) mg/dL Est GFR ( Amer) Est GFR (Non-Af Amer) POC Glucose (mg/dL) 319 H (65-110) mg/dL Random Glucose (75-110) mg/dL Lactic Acid (0.7-2.1) mmol/L Calcium (8.6-10.4) mg/dl Phosphorus (2.5-4.5) mg/dL Magnesium (1.6-2.3) mg/dL Iron (49-181) ug/dL TIBC (250-450) ug/dL % Saturation (20-55) Total Bilirubin (0.2-1.3) mg/dL AST (17-59) U/L ALT (21-72) U/L Alkaline Phosphatase (38-126) U/L Total Creatine Kinase (55-170) U/L CK-MB (Mass) (0.0-3.38) ng/mL Troponin I (0.00-0.120) ng/mL NT-Pro-B Natriuret Pep (0-900) pg/mL Total Protein (6.3-8.3) g/dL Albumin (3.5-5.0) g/dL Globulin (2.2-3.9) gm/dL Albumin/Globulin Ratio (1.0-2.1) Arterial Blood Potassium (3.6-5.2) mmol/L Fluid Type CSF Volume (0-1) mL CSF Appearance (CLEAR) CSF WBC (0.0-5.0) /mm3 CSF RBC (0.0-0.0) /mm3 CSF Total Cell Counted CSF Monos/Macrophages CSF Comment CSF Glucose (40-70) mg/dL CSF Total Protein (12-60) mg/dL CSF Cryptococcus Ag (NEGATIVE) Stool Occult Blood (NEGATIVE) Urine Opiates Screen (NEGATIVE) Urine Methadone Screen (NEGATIVE) Ur Barbiturates Screen (NEGATIVE) Ur Phencyclidine Scrn (NEGATIVE) Ur Amphetamines Screen (NEGATIVE) U Benzodiazepines Scrn (NEGATIVE) U Oth Cocaine Metabols (NEGATIVE) U Cannabinoids Screen (NEGATIVE) C. difficile Ag & Toxin (NEGATIVE) H.influenzae Type B Ag (NEGATIVE) N.meningitidis ACY/W135 (NEGATIVE) N.meningi B/E.coli K1 Ag (NEGATIVE) Group B Strep Antigen (NEGATIVE) S. pneumoniae Antigen (NEGATIVE) 12/01/17 12/01/17 12/01/17 Range/Units 20:59 20:48 20:48 WBC (4.8-10.8) K/uL RBC (4.40-5.90) Mil/uL Hgb (12.0-18.0) g/dL Hct (35.0-51.0) % MCV (80.0-94.0) fL MCH (27.0-31.0) pg MCHC (33.0-37.0) g/dL RDW (11.5-14.5) % Plt Count (130-400) K/uL MPV (7.2-11.7) fL Neut % (Auto) (50.0-75.0) % Lymph % (Auto) (20.0-40.0) % [place] % (Auto) (0.0-10.0) % Eos % (Auto) (0.0-4.0) % Baso % (Auto) (0.0-2.0) % Neut # (Auto) (1.8-7.0) K/uL Lymph # (Auto) (1.0-4.3) K/uL [place] # (Auto) (0.0-0.8) K/uL Eos # (Auto) (0.0-0.7) K/uL Baso # (Auto) (0.0-0.2) K/uL Neutrophils % (Manual) (50-75) % Band Neutrophils % (0-2) % Lymphocytes % (Manual) (20-40) % Monocytes % (Manual) (0-10) % Toxic Granulation Platelet Estimate (NORMAL) Large Platelets Giant Platelets Polychromasia Hypochromasia (manual) Anisocytosis (manual) D-Dimer, Quantitative 2791 H (0-243) ng/mlDDU Puncture Site pCO2 (35-45) mm/Hg pO2 (80-100) mm/Hg HCO3 (21-28) mmol/L ABG pH (7.35-7.45) ABG Total CO2 (22-28) mmol/L ABG O2 Saturation (95-98) % ABG Base Excess (-2.0-3.0) mmol/L ABG Hemoglobin (11.7-17.4) g/dL ABG Carboxyhemoglobin (0.5-1.5) % POC ABG HHb (Measured) (0.0-5.0) % ABG Methemoglobin (0.0-3.0) % Parviz Test ABG Potassium (3.6-5.2) mmol/L A-a O2 Difference mm/Hg Respiratory Index Hgb O2 Saturation (95.0-98.0) % Glucose (75-110) mg/dl Lactate (0.7-2.1) mmol/L Vent Mode Mechanical Rate FiO2 % Tidal Volume PEEP Inspiratory BiPAP Expiratory BiPAP Crit Value Called To Crit Value Called By Crit Value Read Back Blood Gas Notified Time Sodium 142 (132-148) mmol/L Potassium 3.7 (3.6-5.2) mmol/L Chloride 107 (98-107) mmol/L Carbon Dioxide 23 (22-30) mmol/L Anion Gap 16 (10-20) BUN 36 H (9-20) mg/dL Creatinine 1.2 (0.8-1.5) mg/dL Est GFR ( Amer) > 60 Est GFR (Non-Af Amer) 57 POC Glucose (mg/dL) (65-110) mg/dL Random Glucose 390 H (75-110) mg/dL Lactic Acid (0.7-2.1) mmol/L Calcium 8.0 L (8.6-10.4) mg/dl Phosphorus 2.9 (2.5-4.5) mg/dL Magnesium 1.9 (1.6-2.3) mg/dL Iron (49-181) ug/dL TIBC (250-450) ug/dL % Saturation (20-55) Total Bilirubin (0.2-1.3) mg/dL AST (17-59) U/L ALT (21-72) U/L Alkaline Phosphatase (38-126) U/L Total Creatine Kinase (55-170) U/L CK-MB (Mass) (0.0-3.38) ng/mL Troponin I 0.2200 H* (0.00-0.120) ng/mL NT-Pro-B Natriuret Pep 65750 H (0-900) pg/mL Total Protein (6.3-8.3) g/dL Albumin (3.5-5.0) g/dL Globulin (2.2-3.9) gm/dL Albumin/Globulin Ratio (1.0-2.1) Arterial Blood Potassium (3.6-5.2) mmol/L Fluid Type CSF Volume (0-1) mL CSF Appearance (CLEAR) CSF WBC (0.0-5.0) /mm3 CSF RBC (0.0-0.0) /mm3 CSF Total Cell Counted CSF Monos/Macrophages CSF Comment CSF Glucose (40-70) mg/dL CSF Total Protein (12-60) mg/dL CSF Cryptococcus Ag (NEGATIVE) Stool Occult Blood (NEGATIVE) Urine Opiates Screen Negative (NEGATIVE) Urine Methadone Screen Negative (NEGATIVE) Ur Barbiturates Screen Negative (NEGATIVE) Ur Phencyclidine Scrn Negative (NEGATIVE) Ur Amphetamines Screen Negative (NEGATIVE) U Benzodiazepines Scrn Negative (NEGATIVE) U Oth Cocaine Metabols Negative (NEGATIVE) U Cannabinoids Screen Negative (NEGATIVE) C. difficile Ag & Toxin (NEGATIVE) H.influenzae Type B Ag (NEGATIVE) N.meningitidis ACY/W135 (NEGATIVE) N.meningi B/E.coli K1 Ag (NEGATIVE) Group B Strep Antigen (NEGATIVE) S. pneumoniae Antigen (NEGATIVE) 12/01/17 Range/Units 20:48 WBC (4.8-10.8) K/uL RBC (4.40-5.90) Mil/uL Hgb (12.0-18.0) g/dL Hct (35.0-51.0) % MCV (80.0-94.0) fL MCH (27.0-31.0) pg MCHC (33.0-37.0) g/dL RDW (11.5-14.5) % Plt Count (130-400) K/uL MPV (7.2-11.7) fL Neut % (Auto) (50.0-75.0) % Lymph % (Auto) (20.0-40.0) % [place] % (Auto) (0.0-10.0) % Eos % (Auto) (0.0-4.0) % Baso % (Auto) (0.0-2.0) % Neut # (Auto) (1.8-7.0) K/uL Lymph # (Auto) (1.0-4.3) K/uL [place] # (Auto) (0.0-0.8) K/uL Eos # (Auto) (0.0-0.7) K/uL Baso # (Auto) (0.0-0.2) K/uL Neutrophils % (Manual) (50-75) % Band Neutrophils % (0-2) % Lymphocytes % (Manual) (20-40) % Monocytes % (Manual) (0-10) % Toxic Granulation Platelet Estimate (NORMAL) Large Platelets Giant Platelets Polychromasia Hypochromasia (manual) Anisocytosis (manual) D-Dimer, Quantitative (0-243) ng/mlDDU Puncture Site pCO2 (35-45) mm/Hg pO2 (80-100) mm/Hg HCO3 (21-28) mmol/L ABG pH (7.35-7.45) ABG Total CO2 (22-28) mmol/L ABG O2 Saturation (95-98) % ABG Base Excess (-2.0-3.0) mmol/L ABG Hemoglobin (11.7-17.4) g/dL ABG Carboxyhemoglobin (0.5-1.5) % POC ABG HHb (Measured) (0.0-5.0) % ABG Methemoglobin (0.0-3.0) % Parviz Test ABG Potassium (3.6-5.2) mmol/L A-a O2 Difference mm/Hg Respiratory Index Hgb O2 Saturation (95.0-98.0) % Glucose (75-110) mg/dl Lactate (0.7-2.1) mmol/L Vent Mode Mechanical Rate FiO2 % Tidal Volume PEEP Inspiratory BiPAP Expiratory BiPAP Crit Value Called To Crit Value Called By Crit Value Read Back Blood Gas Notified Time Sodium (132-148) mmol/L Potassium (3.6-5.2) mmol/L Chloride (98-107) mmol/L Carbon Dioxide (22-30) mmol/L Anion Gap (10-20) BUN (9-20) mg/dL Creatinine (0.8-1.5) mg/dL Est GFR ( Amer) Est GFR (Non-Af Amer) POC Glucose (mg/dL) (65-110) mg/dL Random Glucose (75-110) mg/dL Lactic Acid 3.5 H (0.7-2.1) mmol/L Calcium (8.6-10.4) mg/dl Phosphorus (2.5-4.5) mg/dL Magnesium (1.6-2.3) mg/dL Iron (49-181) ug/dL TIBC (250-450) ug/dL % Saturation (20-55) Total Bilirubin (0.2-1.3) mg/dL AST (17-59) U/L ALT (21-72) U/L Alkaline Phosphatase (38-126) U/L Total Creatine Kinase (55-170) U/L CK-MB (Mass) (0.0-3.38) ng/mL Troponin I (0.00-0.120) ng/mL NT-Pro-B Natriuret Pep (0-900) pg/mL Total Protein (6.3-8.3) g/dL Albumin (3.5-5.0) g/dL Globulin (2.2-3.9) gm/dL Albumin/Globulin Ratio (1.0-2.1) Arterial Blood Potassium (3.6-5.2) mmol/L Fluid Type CSF Volume (0-1) mL CSF Appearance (CLEAR) CSF WBC (0.0-5.0) /mm3 CSF RBC (0.0-0.0) /mm3 CSF Total Cell Counted CSF Monos/Macrophages CSF Comment CSF Glucose (40-70) mg/dL CSF Total Protein (12-60) mg/dL CSF Cryptococcus Ag (NEGATIVE) Stool Occult Blood (NEGATIVE) Urine Opiates Screen (NEGATIVE) Urine Methadone Screen (NEGATIVE) Ur Barbiturates Screen (NEGATIVE) Ur Phencyclidine Scrn (NEGATIVE) Ur Amphetamines Screen (NEGATIVE) U Benzodiazepines Scrn (NEGATIVE) U Oth Cocaine Metabols (NEGATIVE) U Cannabinoids Screen (NEGATIVE) C. difficile Ag & Toxin (NEGATIVE) H.influenzae Type B Ag (NEGATIVE) N.meningitidis ACY/W135 (NEGATIVE) N.meningi B/E.coli K1 Ag (NEGATIVE) Group B Strep Antigen (NEGATIVE) S. pneumoniae Antigen (NEGATIVE) Laboratory Results - last 24 hr 12/01/17 12/01/17 12/01/17 20:48 20:48 20:48 WBC RBC Hgb Hct MCV MCH MCHC RDW Plt Count MPV Neut % (Auto) Lymph % (Auto) [place] % (Auto) Eos % (Auto) Baso % (Auto) Neut # (Auto) Lymph # (Auto) [place] # (Auto) Eos # (Auto) Baso # (Auto) Neutrophils % (Manual) Band Neutrophils % Lymphocytes % (Manual) Monocytes % (Manual) Toxic Granulation Platelet Estimate Large Platelets Giant Platelets Polychromasia Hypochromasia (manual) Anisocytosis (manual) D-Dimer, Quantitative 2791 H Puncture Site pCO2 pO2 HCO3 ABG pH ABG Total CO2 ABG O2 Saturation ABG Base Excess ABG Hemoglobin ABG Carboxyhemoglobin POC ABG HHb (Measured) ABG Methemoglobin Parviz Test ABG Potassium A-a O2 Difference Respiratory Index Hgb O2 Saturation Glucose Lactate Vent Mode Mechanical Rate FiO2 Tidal Volume PEEP Inspiratory BiPAP Expiratory BiPAP Crit Value Called To Crit Value Called By Crit Value Read Back Blood Gas Notified Time Sodium 142 Potassium 3.7 Chloride 107 Carbon Dioxide 23 Anion Gap 16 BUN 36 H Creatinine 1.2 Est GFR ( Amer) > 60 Est GFR (Non-Af Amer) 57 POC Glucose (mg/dL) Random Glucose 390 H Lactic Acid 3.5 H Calcium 8.0 L Phosphorus 2.9 Magnesium 1.9 Iron TIBC % Saturation Total Bilirubin AST ALT Alkaline Phosphatase Total Creatine Kinase CK-MB (Mass) Troponin I 0.2200 H* NT-Pro-B Natriuret Pep 69882 H Total Protein Albumin Globulin Albumin/Globulin Ratio Arterial Blood Potassium Fluid Type CSF Volume CSF Appearance CSF WBC CSF RBC CSF Total Cell Counted CSF Monos/Macrophages CSF Comment CSF Glucose CSF Total Protein CSF Cryptococcus Ag Stool Occult Blood Urine Opiates Screen Urine Methadone Screen Ur Barbiturates Screen Ur Phencyclidine Scrn Ur Amphetamines Screen U Benzodiazepines Scrn U Oth Cocaine Metabols U Cannabinoids Screen C. difficile Ag & Toxin H.influenzae Type B Ag N.meningitidis ACY/W135 N.meningi B/E.coli K1 Ag Group B Strep Antigen S. pneumoniae Antigen 12/01/17 12/01/17 12/02/17 20:59 21:10 00:28 WBC RBC Hgb Hct MCV MCH MCHC RDW Plt Count MPV Neut % (Auto) Lymph % (Auto) [place] % (Auto) Eos % (Auto) Baso % (Auto) Neut # (Auto) Lymph # (Auto) [place] # (Auto) Eos # (Auto) Baso # (Auto) Neutrophils % (Manual) Band Neutrophils % Lymphocytes % (Manual) Monocytes % (Manual) Toxic Granulation Platelet Estimate Large Platelets Giant Platelets Polychromasia Hypochromasia (manual) Anisocytosis (manual) D-Dimer, Quantitative Puncture Site Rra Rr pCO2 27 L 34 L pO2 86 146 H HCO3 25.8 27.0 ABG pH 7.54 H 7.49 H ABG Total CO2 23.9 26.9 ABG O2 Saturation 99.2 H 99.7 H ABG Base Excess 1.1 2.6 ABG Hemoglobin 9.3 L 9.3 L ABG Carboxyhemoglobin 1.8 H 1.7 H POC ABG HHb (Measured) 0.8 0.3 ABG Methemoglobin 1.2 1.0 Parviz Test Pos Pos ABG Potassium A-a O2 Difference 94.0 168.0 Respiratory Index 1.1 1.2 Hgb O2 Saturation 96.1 97.0 Glucose Lactate Vent Mode Prvc Mechanical Rate 16 FiO2 30.0 50.0 Tidal Volume 500 PEEP 5 Inspiratory BiPAP 14 Expiratory BiPAP 7 Crit Value Called To Crit Value Called By Crit Value Read Back Blood Gas Notified Time Sodium Potassium Chloride Carbon Dioxide Anion Gap BUN Creatinine Est GFR ( Amer) Est GFR (Non-Af Amer) POC Glucose (mg/dL) Random Glucose Lactic Acid Calcium Phosphorus Magnesium Iron TIBC % Saturation Total Bilirubin AST ALT Alkaline Phosphatase Total Creatine Kinase CK-MB (Mass) Troponin I NT-Pro-B Natriuret Pep Total Protein Albumin Globulin Albumin/Globulin Ratio Arterial Blood Potassium Fluid Type CSF Volume CSF Appearance CSF WBC CSF RBC CSF Total Cell Counted CSF Monos/Macrophages CSF Comment CSF Glucose CSF Total Protein CSF Cryptococcus Ag Stool Occult Blood Urine Opiates Screen Negative Urine Methadone Screen Negative Ur Barbiturates Screen Negative Ur Phencyclidine Scrn Negative Ur Amphetamines Screen Negative U Benzodiazepines Scrn Negative U Oth Cocaine Metabols Negative U Cannabinoids Screen Negative C. difficile Ag & Toxin H.influenzae Type B Ag N.meningitidis ACY/W135 N.meningi B/E.coli K1 Ag Group B Strep Antigen S. pneumoniae Antigen 12/02/17 12/02/17 12/02/17 00:41 04:56 06:31 WBC RBC Hgb Hct MCV MCH MCHC RDW Plt Count MPV Neut % (Auto) Lymph % (Auto) [place] % (Auto) Eos % (Auto) Baso % (Auto) Neut # (Auto) Lymph # (Auto) [place] # (Auto) Eos # (Auto) Baso # (Auto) Neutrophils % (Manual) Band Neutrophils % Lymphocytes % (Manual) Monocytes % (Manual) Toxic Granulation Platelet Estimate Large Platelets Giant Platelets Polychromasia Hypochromasia (manual) Anisocytosis (manual) D-Dimer, Quantitative Puncture Site Lr pCO2 22 L pO2 152 H HCO3 19.4 L ABG pH 7.44 ABG Total CO2 15.6 L ABG O2 Saturation 99.8 H ABG Base Excess -7.1 L ABG Hemoglobin ABG Carboxyhemoglobin POC ABG HHb (Measured) ABG Methemoglobin Parviz Test Pos ABG Potassium 2.0 L* A-a O2 Difference 177.0 Respiratory Index 1.2 Hgb O2 Saturation Glucose 121 H Lactate 1.5 Vent Mode Prvc Mechanical Rate 16 FiO2 50.0 Tidal Volume 500 PEEP 5 Inspiratory BiPAP Expiratory BiPAP 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 Crit Value Called By Tanisha rhodes rt Crit Value Read Back Y Blood Gas Notified Time 624 Sodium 151.0 H Potassium Chloride 124.0 H Carbon Dioxide Anion Gap BUN Creatinine Est GFR ( Amer) Est GFR (Non-Af Amer) POC Glucose (mg/dL) 319 H Random Glucose Lactic Acid Calcium Phosphorus Magnesium Iron < 10 L TIBC 182 L % Saturation 5.5 L Total Bilirubin AST ALT Alkaline Phosphatase Total Creatine Kinase CK-MB (Mass) Troponin I NT-Pro-B Natriuret Pep Total Protein Albumin Globulin Albumin/Globulin Ratio Arterial Blood Potassium 2.0 L* Fluid Type CSF Volume CSF Appearance CSF WBC CSF RBC CSF Total Cell Counted CSF Monos/Macrophages CSF Comment CSF Glucose CSF Total Protein CSF Cryptococcus Ag Stool Occult Blood Urine Opiates Screen Urine Methadone Screen Ur Barbiturates Screen Ur Phencyclidine Scrn Ur Amphetamines Screen U Benzodiazepines Scrn U Oth Cocaine Metabols U Cannabinoids Screen C. difficile Ag & Toxin H.influenzae Type B Ag N.meningitidis ACY/W135 N.meningi B/E.coli K1 Ag Group B Strep Antigen S. pneumoniae Antigen 12/02/17 12/02/17 12/02/17 06:31 06:31 06:34 WBC 13.8 H RBC 3.59 L Hgb 9.4 L Hct 29.3 L MCV 81.6 MCH 26.2 L MCHC 32.1 L RDW 16.2 H Plt Count 235 MPV 10.5 Neut % (Auto) 96.1 H Lymph % (Auto) 1.0 L [place] % (Auto) 2.8 Eos % (Auto) 0.0 Baso % (Auto) 0.1 Neut # (Auto) 13.2 H Lymph # (Auto) 0.1 L [place] # (Auto) 0.4 Eos # (Auto) 0.0 Baso # (Auto) 0.0 Neutrophils % (Manual) 79 H Band Neutrophils % 18 H* Lymphocytes % (Manual) 1 L Monocytes % (Manual) 2 Toxic Granulation Present Platelet Estimate Normal Large Platelets Present Giant Platelets Present Polychromasia Slight Hypochromasia (manual) Slight Anisocytosis (manual) Slight D-Dimer, Quantitative Puncture Site pCO2 pO2 HCO3 ABG pH ABG Total CO2 ABG O2 Saturation ABG Base Excess ABG Hemoglobin ABG Carboxyhemoglobin POC ABG HHb (Measured) ABG Methemoglobin Parviz Test ABG Potassium A-a O2 Difference Respiratory Index Hgb O2 Saturation Glucose Lactate Vent Mode Mechanical Rate FiO2 Tidal Volume PEEP Inspiratory BiPAP Expiratory BiPAP Crit Value Called To Crit Value Called By Crit Value Read Back Blood Gas Notified Time Sodium 143 Potassium 3.5 L Chloride 107 Carbon Dioxide 23 Anion Gap 16 BUN 41 H Creatinine 1.5 Est GFR ( Amer) 53 Est GFR (Non-Af Amer) 44 POC Glucose (mg/dL) Random Glucose 171 H Lactic Acid 2.3 H Calcium 7.8 L Phosphorus 2.3 L Magnesium 1.9 Iron TIBC % Saturation Total Bilirubin 0.7 AST 17 D ALT 34 Alkaline Phosphatase 66 Total Creatine Kinase CK-MB (Mass) Troponin I 0.2880 H* NT-Pro-B Natriuret Pep Total Protein 5.6 L Albumin 2.8 L Globulin 2.8 Albumin/Globulin Ratio 1.0 Arterial Blood Potassium Fluid Type CSF Volume CSF Appearance CSF WBC CSF RBC CSF Total Cell Counted CSF Monos/Macrophages CSF Comment CSF Glucose CSF Total Protein CSF Cryptococcus Ag Stool Occult Blood Urine Opiates Screen Urine Methadone Screen Ur Barbiturates Screen Ur Phencyclidine Scrn Ur Amphetamines Screen U Benzodiazepines Scrn U Oth Cocaine Metabols U Cannabinoids Screen C. difficile Ag & Toxin H.influenzae Type B Ag N.meningitidis ACY/W135 N.meningi B/E.coli K1 Ag Group B Strep Antigen S. pneumoniae Antigen 12/02/17 12/02/17 12/02/17 07:12 08:31 11:36 WBC RBC Hgb Hct MCV MCH MCHC RDW Plt Count MPV Neut % (Auto) Lymph % (Auto) [place] % (Auto) Eos % (Auto) Baso % (Auto) Neut # (Auto) Lymph # (Auto) [place] # (Auto) Eos # (Auto) Baso # (Auto) Neutrophils % (Manual) Band Neutrophils % Lymphocytes % (Manual) Monocytes % (Manual) Toxic Granulation Platelet Estimate Large Platelets Giant Platelets Polychromasia Hypochromasia (manual) Anisocytosis (manual) D-Dimer, Quantitative Puncture Site pCO2 pO2 HCO3 ABG pH ABG Total CO2 ABG O2 Saturation ABG Base Excess ABG Hemoglobin ABG Carboxyhemoglobin POC ABG HHb (Measured) ABG Methemoglobin Parviz Test ABG Potassium A-a O2 Difference Respiratory Index Hgb O2 Saturation Glucose Lactate Vent Mode Mechanical Rate FiO2 Tidal Volume PEEP Inspiratory BiPAP Expiratory BiPAP Crit Value Called To Crit Value Called By Crit Value Read Back Blood Gas Notified Time Sodium Potassium Chloride Carbon Dioxide Anion Gap BUN Creatinine Est GFR ( Amer) Est GFR (Non-Af Amer) POC Glucose (mg/dL) 184 H 185 H Random Glucose Lactic Acid Calcium Phosphorus Magnesium Iron TIBC % Saturation Total Bilirubin AST ALT Alkaline Phosphatase Total Creatine Kinase CK-MB (Mass) Troponin I NT-Pro-B Natriuret Pep Total Protein Albumin Globulin Albumin/Globulin Ratio Arterial Blood Potassium Fluid Type CSF Volume CSF Appearance CSF WBC CSF RBC CSF Total Cell Counted CSF Monos/Macrophages CSF Comment CSF Glucose CSF Total Protein CSF Cryptococcus Ag Stool Occult Blood Positive H Urine Opiates Screen Urine Methadone Screen Ur Barbiturates Screen Ur Phencyclidine Scrn Ur Amphetamines Screen U Benzodiazepines Scrn U Oth Cocaine Metabols U Cannabinoids Screen C. difficile Ag & Toxin H.influenzae Type B Ag N.meningitidis ACY/W135 N.meningi B/E.coli K1 Ag Group B Strep Antigen S. pneumoniae Antigen 12/02/17 12/02/17 12/02/17 15:09 15:09 15:20 WBC RBC Hgb Hct MCV MCH MCHC RDW Plt Count MPV Neut % (Auto) Lymph % (Auto) [place] % (Auto) Eos % (Auto) Baso % (Auto) Neut # (Auto) Lymph # (Auto) [place] # (Auto) Eos # (Auto) Baso # (Auto) Neutrophils % (Manual) Band Neutrophils % Lymphocytes % (Manual) Monocytes % (Manual) Toxic Granulation Platelet Estimate Large Platelets Giant Platelets Polychromasia Hypochromasia (manual) Anisocytosis (manual) D-Dimer, Quantitative Puncture Site pCO2 pO2 HCO3 ABG pH ABG Total CO2 ABG O2 Saturation ABG Base Excess ABG Hemoglobin ABG Carboxyhemoglobin POC ABG HHb (Measured) ABG Methemoglobin Parviz Test ABG Potassium A-a O2 Difference Respiratory Index Hgb O2 Saturation Glucose Lactate Vent Mode Mechanical Rate FiO2 Tidal Volume PEEP Inspiratory BiPAP Expiratory BiPAP Crit Value Called To Crit Value Called By Crit Value Read Back Blood Gas Notified Time Sodium Potassium Chloride Carbon Dioxide Anion Gap BUN Creatinine Est GFR ( Amer) Est GFR (Non-Af Amer) POC Glucose (mg/dL) Random Glucose Lactic Acid Calcium Phosphorus Magnesium Iron TIBC % Saturation Total Bilirubin AST ALT Alkaline Phosphatase Total Creatine Kinase CK-MB (Mass) Troponin I NT-Pro-B Natriuret Pep Total Protein Albumin Globulin Albumin/Globulin Ratio Arterial Blood Potassium Fluid Type Spinal fluid CSF Volume 1 CSF Appearance Clear/colorless CSF WBC 0.0 CSF RBC 3.0 H CSF Total Cell Counted TEST NOT PERFORMED CSF Monos/Macrophages TEST NOT PERFORMED CSF Comment Diff. not needed CSF Glucose 108 H* CSF Total Protein 779.0 H* CSF Cryptococcus Ag Negative Stool Occult Blood Urine Opiates Screen Urine Methadone Screen Ur Barbiturates Screen Ur Phencyclidine Scrn Ur Amphetamines Screen U Benzodiazepines Scrn U Oth Cocaine Metabols U Cannabinoids Screen C. difficile Ag & Toxin H.influenzae Type B Ag Negative N.meningitidis ACY/W135 Negative N.meningi B/E.coli K1 Ag Negative Group B Strep Antigen Negative S. pneumoniae Antigen Negative 12/02/17 12/02/17 12/02/17 15:32 15:32 16:00 WBC RBC Hgb Hct MCV MCH MCHC RDW Plt Count MPV Neut % (Auto) Lymph % (Auto) [place] % (Auto) Eos % (Auto) Baso % (Auto) Neut # (Auto) Lymph # (Auto) [place] # (Auto) Eos # (Auto) Baso # (Auto) Neutrophils % (Manual) Band Neutrophils % Lymphocytes % (Manual) Monocytes % (Manual) Toxic Granulation Platelet Estimate Large Platelets Giant Platelets Polychromasia Hypochromasia (manual) Anisocytosis (manual) D-Dimer, Quantitative Puncture Site pCO2 pO2 HCO3 ABG pH ABG Total CO2 ABG O2 Saturation ABG Base Excess ABG Hemoglobin ABG Carboxyhemoglobin POC ABG HHb (Measured) ABG Methemoglobin Parviz Test ABG Potassium A-a O2 Difference Respiratory Index Hgb O2 Saturation Glucose Lactate Vent Mode Mechanical Rate FiO2 Tidal Volume PEEP Inspiratory BiPAP Expiratory BiPAP Crit Value Called To Crit Value Called By Crit Value Read Back Blood Gas Notified Time Sodium 142 Potassium 3.5 L Chloride 109 H Carbon Dioxide 22 Anion Gap 15 BUN 47 H Creatinine 1.8 H Est GFR ( Amer) 43 Est GFR (Non-Af Amer) 36 POC Glucose (mg/dL) Random Glucose 196 H Lactic Acid Calcium 7.6 L Phosphorus 4.7 H Magnesium Iron TIBC % Saturation Total Bilirubin AST ALT Alkaline Phosphatase Total Creatine Kinase 35 L CK-MB (Mass) 0.99 Troponin I 0.4100 H* NT-Pro-B Natriuret Pep Total Protein Albumin Globulin Albumin/Globulin Ratio Arterial Blood Potassium Fluid Type CSF Volume CSF Appearance CSF WBC CSF RBC CSF Total Cell Counted CSF Monos/Macrophages CSF Comment CSF Glucose CSF Total Protein CSF Cryptococcus Ag Stool Occult Blood Urine Opiates Screen Urine Methadone Screen Ur Barbiturates Screen Ur Phencyclidine Scrn Ur Amphetamines Screen U Benzodiazepines Scrn U Oth Cocaine Metabols U Cannabinoids Screen C. difficile Ag & Toxin Negative H.influenzae Type B Ag N.meningitidis ACY/W135 N.meningi B/E.coli K1 Ag Group B Strep Antigen S. pneumoniae Antigen 12/02/17 17:53 WBC RBC Hgb Hct MCV MCH MCHC RDW Plt Count MPV Neut % (Auto) Lymph % (Auto) [place] % (Auto) Eos % (Auto) Baso % (Auto) Neut # (Auto) Lymph # (Auto) [place] # (Auto) Eos # (Auto) Baso # (Auto) Neutrophils % (Manual) Band Neutrophils % Lymphocytes % (Manual) Monocytes % (Manual) Toxic Granulation Platelet Estimate Large Platelets Giant Platelets Polychromasia Hypochromasia (manual) Anisocytosis (manual) D-Dimer, Quantitative Puncture Site pCO2 pO2 HCO3 ABG pH ABG Total CO2 ABG O2 Saturation ABG Base Excess ABG Hemoglobin ABG Carboxyhemoglobin POC ABG HHb (Measured) ABG Methemoglobin Parviz Test ABG Potassium A-a O2 Difference Respiratory Index Hgb O2 Saturation Glucose Lactate Vent Mode Mechanical Rate FiO2 Tidal Volume PEEP Inspiratory BiPAP Expiratory BiPAP Crit Value Called To Crit Value Called By Crit Value Read Back Blood Gas Notified Time Sodium Potassium Chloride Carbon Dioxide Anion Gap BUN Creatinine Est GFR ( Amer) Est GFR (Non-Af Amer) POC Glucose (mg/dL) 195 H Random Glucose Lactic Acid Calcium Phosphorus Magnesium Iron TIBC % Saturation Total Bilirubin AST ALT Alkaline Phosphatase Total Creatine Kinase CK-MB (Mass) Troponin I NT-Pro-B Natriuret Pep Total Protein Albumin Globulin Albumin/Globulin Ratio Arterial Blood Potassium Fluid Type CSF Volume CSF Appearance CSF WBC CSF RBC CSF Total Cell Counted CSF Monos/Macrophages CSF Comment CSF Glucose CSF Total Protein CSF Cryptococcus Ag Stool Occult Blood Urine Opiates Screen Urine Methadone Screen Ur Barbiturates Screen Ur Phencyclidine Scrn Ur Amphetamines Screen U Benzodiazepines Scrn U Oth Cocaine Metabols U Cannabinoids Screen C. difficile Ag & Toxin H.influenzae Type B Ag N.meningitidis ACY/W135 N.meningi B/E.coli K1 Ag Group B Strep Antigen S. pneumoniae Antigen Fingerstick Blood Sugar Results: 185 Assessment/Plan - Assessment and Plan (Free Text) Plan: 87 y/o male with pmx of hydrocephalus requiring a shunt who was recently admitted to [facility] for respiratory distress. Patient was trasnferred to [facility] and brought back to [facility] for same complaint. -Respiratory distress:intubated to protect airway, continue ventilation, f/u ABG -Sepsis:serial lactic, LP performed today, continue abx regimen, f/u sputum culture -AMS: obtain CT head, EEG, neurology eval to r/o NPH -keep pendleton peg tube feeds as patient is intubated -CAD/NSTEMI/P. A-fib./flutter: will benfit from serial trop, asa, statin and verapamil as BP tolerated, obtain cardiology eval, and echo, monitor to keep MAP >65 -bgm q6hrs, novalog q6hrs -pud ppx pepcid -DVT ppx heparin Prognosis guarded pending CSF results cc time 35 minutes - Date & Time Date: 12/02/17 Time: 15:00
[2017-12-02] MEDS: Phenylephrine 30 MG in Sodium Chloride 0.9% 250 ML IV PRN (21:15)
[2017-12-03] MEDS: Verapamil 40 MG in Sodium Chloride 0.9% 84 ML IV SCH ×3 (00:15→16:20)
[2017-12-03] MEDS: (Novolog) Insulin Aspart, Recombinant 100 u/ml 10 ml vial SC SCH ×4 (00:36→18:22)
[2017-12-03] MEDS: Acyclovir 500 MG in Sodium Chloride 0.9% 100 ML IV SCH ×2 (03:00→11:09)
[2017-12-03] MEDS: Phenylephrine 30 MG in Sodium Chloride 0.9% 250 ML IV PRN ×4 (04:00→18:21)
[2017-12-03] MEDS: Aztreonam 2 GM in Sodium Chloride 0.9% 100 ML IVPB SCH ×2 (04:00→13:45)
[2017-12-03 05:12] LABS: ARTERIAL BLOOD GAS HCO3 21.1 mmol/L (21-28); ARTERIAL BLOOD GAS O2 SAT 99.4 % (95-98); ARTERIAL BLOOD GAS PCO2 28 mm/Hg (35-45); ARTERIAL BLOOD GAS PH 7.43 (7.35-7.45); ARTERIAL BLOOD GAS PO2 122 mm/Hg (80-100); ARTERIAL BLOOD GAS TCO2 19.5 mmol/L (22-28)
[2017-12-03 06:30] LABS: BASO % 0.2 % (0.0-2.0); EOS % 0.2 % (0.0-4.0); LYMPH # 0.2 K/uL (1.0-4.3); LYMPH % 1.1 % (20.0-40.0); MEAN CELL VOLUME 82.3 fL (80.0-94.0); MEAN CORPUSCULAR HEMOGLOBIN 26.5 pg (27.0-31.0); MEAN CORPUSCULAR HGB CONC 32.2 g/dL (33.0-37.0); MEAN PLATELET VOLUME 11.2 fL (7.2-11.7); MONO # 0.6 K/uL (0.0-0.8); MONO % 3.4 % (0.0-10.0); NEUT # 15.6 K/uL (1.8-7.0); NEUT % 95.1 % (50.0-75.0); PLATELET COUNT 200 K/uL (130-400); RBC 3.03 Mil/uL (4.40-5.90); RED CELL DISTRIBUTION WIDTH 16.4 % (11.5-14.5); WHITE BLOOD COUNT 16.4 K/uL (4.8-10.8)
[2017-12-03 06:51] LABS: ALB/GLOB RATIO 0.9 (1.0-2.1); ALBUMIN 2.3 g/dL (3.5-5.0); CALCIUM 7.1 mg/dl (8.6-10.4); MAGNESIUM 1.7 mg/dL (1.6-2.3)
--- NOTE | 2017-12-03 07:11 | CP.PCM.PN ---
Subjective - Date & Time of Evaluation Date of Evaluation: 12/03/17 Time of Evaluation: 07:08 - Subjective Subjective: Mr. Yoon was seen and examined at the bedside in ICU. He remains on mechanical ventilator on PRVC mode. He is responsive to pain stimuli only on his bilateral upper extremities with no response to his lower extremities. He has GCS 4T. He is currently receiving vasopressors for blood pressure. He pontaneously moves his upper extremities with bilateral hand mitten for patient safety. CSF result showed RBC- 3, glucose -108, protein 779. CT of the head showed left frontal scalp soft tissue scarring versus soft tissue swelling. Small, small semi lunar/ cresentic focus frontal aspect of the left-sided hygroma possibly granulation, blood product consider less likely. Moderate- size bilateral hygromas. Right posterior approach [employer] shunt catheter extends to the right lateral ventricle. There was no untoward events overnight. Objective - Vital Signs/Intake and Output Vital Signs (last 24 hours): Temp Pulse Resp BP Pulse Ox 97.3 F L 96 H 25 H 97/49 L 97 12/03/17 00:00 12/03/17 07:01 12/03/17 07:01 12/03/17 07:01 12/03/17 07:01 Intake and Output: 12/03/17 12/03/17 06:59 18:59 Intake Total 1859.0 Output Total 150 Balance 1709.0 - Medications Medications: Current Medications Acetaminophen (Tylenol 650mg/20.3ml Solution Ud) 650 mg PO Q6 PRN PRN Reason: fever Last Admin: 12/02/17 09:03 Dose: 650 mg Aspirin (Aspirin Chewable) 81 mg PO DAILY [facility] Last Admin: 12/02/17 10:41 Dose: 81 mg Famotidine (Pepcid) 20 mg IVP DAILY [facility] Last Admin: 12/02/17 16:37 Dose: 20 mg Folic Acid (Folic Acid) 1 mg PO DAILY [facility] Last Admin: 12/02/17 10:41 Dose: 1 mg Acyclovir 500 mg/ Sodium (Chloride) 100 mls @ 100 mls/hr IV Q8H [facility] Last Admin: 12/03/17 03:00 Dose: 100 mls/hr Aztreonam 2 gm/ Sodium (Chloride) 100 mls @ 100 mls/hr IVPB Q8H [facility] Last Admin: 12/03/17 04:00 Dose: 100 mls/hr Moxifloxacin HCl (Avelox Iv 400mg/250ml Ns) 400 mg in 250 mls @ 167 mls/hr IVPB Q24H ANA Last Admin: 12/02/17 13:05 Dose: 167 mls/hr Vancomycin/Sodium Chloride (Vancomycin 1 Gm/Ns 200 Ml) 1 gm in 200 mls @ 133 mls/hr IVPB Q24H [facility] Stop: 12/07/17 15:01 Last Admin: 12/02/17 14:54 Dose: 133 mls/hr Sodium Chloride (Sodium Chloride 0.9%) 1,000 mls @ 75 mls/hr IV .[id number] ANA Last Admin: 12/02/17 21:30 Dose: 75 mls/hr Verapamil HCl 40 mg/ Sodium (Chloride) 100 mls @ 12.5 mls/hr IV .Q8H ANA; 5 MG/ HR PRN Reason: Protocol Last Admin: 12/03/17 00:15 Dose: 12.5 mls/hr Phenylephrine HCl 30 mg/ (Sodium Chloride) 253 mls @ 10.12 mls/hr IV .Q24H PRN ; Protocol; 20 MCG/MIN PRN Reason: TITRATE PER MD ORDER Last Admin: 12/03/17 04:00 Dose: 74.11 mcg/min, 37.49 mls/hr Insulin Aspart (Novolog) 0 unit SC Q6H ANA PRN Reason: Protocol Last Admin: 12/03/17 05:09 Dose: Not Given Latanoprost (Xalatan Opht) 0 ml OD HS [facility] Last Admin: 12/02/17 21:05 Dose: 2.5 ml Lorazepam (Ativan) 2 mg IVP Q4H PRN PRN Reason: Agitation Last Admin: 12/02/17 13:50 Dose: 2 mg Metoprolol Tartrate (Lopressor) 12.5 mg GT BID [facility] Last Admin: 12/02/17 18:18 Dose: Not Given Rosuvastatin Calcium (Crestor) 5 mg PO HS [facility] Last Admin: 12/02/17 21:05 Dose: 5 mg Thiamine HCl (Vitamin B1 Tab) 100 mg GT DAILY [facility] Last Admin: 12/02/17 10:41 Dose: 100 mg - Labs Labs: 12/03/17 06:23 12/03/17 06:23 PT 12.9 SECONDS (9.7-12.2) H 12/01/17 13:39 INR 1.15 (0.92-1.08) H 12/01/17 13:39 APTT 20 SECONDS (21-34) L 12/01/17 13:39 - Constitutional Appears: No Acute Distress - Head Exam Head Exam: NORMAL INSPECTION - Eye Exam Additional comments: Pupils 2mm-1mm with light. +dolls eyes,+corneal reflex. - ENT Exam Additional comments: +gag reflex, . - Neurological Exam Neuro motor strength exam: Left Upper Extremity: 2/1, Right Upper Extremity: 2/1 , Left Lower Extremity: 0, Right Lower Extremity: 0 Additional comments: withdraws to painful stimuli with arms bilaterally, he has no spontaneous movement in his legs. +1 dtr ul and ll bl. Assessment and Plan (1) Sepsis Assessment & Plan: Case discussed with Dr. Patricio, continue all current medical regimen. Pending EEG. Recommend repaet CT of the head without contrast. Status: Acute
[2017-12-03] MEDS: Acetaminophen 650mg/20.3ml solution UD PO PRN (08:25)
[2017-12-03 09:18] LABS: ANISOCYTOSIS SLIGHT; BANDS 16 % (0-2); LARGE PLATELETS PRESENT; LYMPHOCYTE 1 % (20-40); MONOCYTE 1 % (0-10); NEUTROPHIL 82 % (50-75); PLATELET ESTIMATE NORMAL (NORMAL); TOTAL CELLS COUNTED 100; TOXIC GRANULATION PRESENT
[2017-12-03 09:19] LABS: BURR CELLS SLIGHT; HYPOCHROMIC SLIGHT; OVALOCYTES SLIGHT; POIKILOCYTOSIS SLIGHT; POLYCHROMIC SLIGHT
--- NOTE | 2017-12-03 10:09 | RAD ---
HISTORY: infiltrate COMPARISON: Chest x-ray performed 12/02/17 TECHNIQUE: Chest, one view. FINDINGS: Endotracheal tube terminates approximately 5 cm above the dg. LUNGS: Right basilar atelectasis/infiltrate. PLEURA: Layering right greater than left pleural effusions. No definite pneumothorax . CARDIOVASCULAR: Cardiomegaly. OSSEOUS STRUCTURES: Degenerative changes. VISUALIZED UPPER ABDOMEN: Unremarkable. OTHER FINDINGS: None. IMPRESSION: Interval removal of nasogastric tube. Endotracheal tube terminates approximately 5 cm above the dg. Cardiomegaly. Layering right greater than left pleural effusions. Right basilar atelectasis/ infiltrate.
--- NOTE | 2017-12-03 10:55 | CT ---
PROCEDURE: CT HEAD WITHOUT CONTRAST. HISTORY: follow up of previous CT scan COMPARISON: Noncontrast head CT performed 12/02/17 TECHNIQUE: Axial computed tomography images were obtained through the head/brain without intravenous contrast. Radiation dose: Total exam DLP = 1353.79 mGy-cm. This CT exam was performed using one or more of the following dose reduction techniques: Automated exposure control, adjustment of the mA and/or kV according to patient size, and/or use of iterative reconstruction technique. FINDINGS: BRAIN: Diffuse atrophy with prominence of the ventricles and sulci noted. No mass effect or edema. Bilateral subdural hygromas. Stable appearance of small focus in the left-sided hygroma favored to reflect vessel and granulation rather than blood products. VENTRICLES: Right posterior approach [employer] shunt catheter extends the right lateral ventricle. No hydrocephalus. CALVARIUM: Unremarkable. PARANASAL SINUSES: Unremarkable as visualized. No significant inflammatory changes. MASTOID AIR CELLS: Unremarkable as visualized. No inflammatory changes. OTHER FINDINGS: Mild left frontal scalp probable scarring. IMPRESSION: Right posterior approach [employer] shunt catheter. Moderate bilateral subdural hygromas. Stable appearance of left frontal hygroma with small density favored to reflect vessel and granulation rather than blood products.
[2017-12-03] MEDS ORDERED: Lactated Ringer's 1,000 ML IV ONE ×2 (11:36)
[2017-12-03] MEDS ORDERED: Heparin25000 units/250ml 1/2NS 25,000 UNITS/250 ML BAG IV PRN (11:46)
--- NOTE | 2017-12-03 11:55 | CP.CCUPN ---
CCU Subjective - Physician Review Subjective (Free Text): Patient intubated in evening with fevers, suspect aspiration 12/02/17 20:04 CCU Objective - Vital Signs / Intake & Output Vital Signs (Last 4 hours): Vital Signs Pulse Resp BP Pulse Ox 12/03/17 10:47 93 H 24 89/41 L 98 12/03/17 09:40 85/44 L Intake and Output (Last 8hrs): Intake & Output 12/02/17 12/03/17 12/03/17 22:59 06:59 14:59 Intake Total 2258.0 1307.0 378.5 Output Total 110 390 15 Balance 2148.0 917.0 363.5 Intake: IV 87 253 253 Intake, IV Amount 2171.0 1054.0 125.5 Right Distal Port Femoral 800 650 75 Right Medial Port Femoral 1075.0 100.0 12.5 Right Proximal Port 296 304 38 Femoral Output: Urine 110 140 15 Urethral (Morgan) 110 140 15 Stool 250 Other: # Bowel Movements 0 1 0 - Physical Exam Head: Positive for: Atraumatic, Normocephalic Pupils: Positive for: PERRL Cardiovascular: Positive for: Normal S1, S2, Tachycardic Abdomen: Positive for: Normal Bowel Sounds. Negative for: Peritoneal Signs Upper Extremity: Positive for: Normal Inspection Lower Extremity: Positive for: Normal Inspection Neurological: Negative for: GCS=15, CN II-XII Intact - Medications Active Medications: Active Medications Generic Name Dose Route Start Last Admin Trade Name Freq PRN Reason Stop Dose Admin Acetaminophen 650 mg 12/02/17 07:49 12/03/17 08:25 Tylenol 650mg/20.3ml Solution Ud PO 650 mg Q6 PRN Administration fever Acetylcysteine 6 ml 12/03/17 11:45 Acetylcysteine 20% PO 12/04/17 23:46 Q12H ANA Aspirin 81 mg 12/02/17 10:00 12/03/17 09:39 Aspirin Chewable PO 81 mg DAILY ANA Administration Famotidine 20 mg 12/02/17 16:15 12/03/17 09:39 Pepcid IVP 20 mg DAILY ANA Administration Folic Acid 1 mg 12/02/17 10:00 12/03/17 09:39 Folic Acid PO 1 mg DAILY ANA Administration Hydrocortisone Sodium Succinate 100 mg 12/03/17 11:45 Solu-Cortef IV Q8H ANA Vancomycin/Sodium Chloride 1 gm in 200 mls @ 133 mls/hr 12/02/17 15:00 14:54 Vancomycin 1 Gm/Ns 200 Ml IVPB 12/07/17 15:01 133 mls/hr Q24H ANA Administration Sodium Chloride 1,000 mls @ 75 mls/hr 12/02/17 07:30 12/02/17 21:30 Sodium Chloride 0.9% IV 75 mls/hr .[id number] ANA Administration Verapamil HCl 40 mg/ Sodium 100 mls @ 12.5 mls/hr 12/02/17 16:00 12/03/17 07: 49 Chloride IV 12.5 mls/hr .Q8H ANA Administration Protocol 5 MG/HR Phenylephrine HCl 30 mg/ 253 mls @ 10.12 mls/hr 12/02/17 16:04 12/03/17 10:47 Sodium Chloride IV 158.1 mcg/min .Q24H PRN 80 mls/hr TITRATE PER MD ORDER Administration Protocol 20 MCG/MIN Lactated Ringer's 1,000 mls @ 1,000 mls/hr 12/03/17 11:36 Lactated Ringer's IV 12/03/17 12:35 .Q1H ONE Aztreonam 2 gm/ Sodium 100 mls @ 100 mls/hr 12/03/17 11:45 Chloride IVPB Q12H ANA Lactated Ringer's 1,000 mls @ 1,000 mls/hr 12/03/17 11:36 Lactated Ringer's IV 12/03/17 12:35 .Q1H ONE Doxycycline Hyclate 100 mg/ 100 mls @ 100 mls/hr 12/03/17 11:45 Sodium Chloride IVPB Q12H ANA Heparin Sodium/Sodium Chloride 25,000 units in 250 mls @ 6.124 mls/hr 11:46 Heparin 78747 Units/250ml 1/2 Normal Saline IV .Q24H PRN PROTOCOL Protocol 9 UNITS/KG/HR Insulin Aspart 0 unit 12/02/17 00:00 12/03/17 05:09 Novolog SC Not Given Q6H ANA Protocol Latanoprost 0 ml 12/01/17 23:45 12/02/17 21:05 Xalatan Opht OD 2.5 ml HS ANA Administration Rosuvastatin Calcium 5 mg 12/01/17 22:00 12/02/17 21:05 Crestor PO 5 mg HS ANA Administration Thiamine HCl 100 mg 12/02/17 10:00 12/03/17 09:39 Vitamin B1 Tab GT 100 mg DAILY ANA Administration - Patient Studies Lab Studies: Microbiology Studies 12/02/17 15:17 Gram Stain - Final Trachasp Sputum Culture - Preliminary Gram Positive Cocci 12/02/17 15:20 Gram Stain - Final Cerebral Spinal Fluid CSF Culture - Preliminary NO GROWTH AFTER 24 HOURS 12/01/17 Unknown Gram Stain - Final Trachasp Sputum Culture - Preliminary Gram Positive Cocci 12/01/17 11:25 Blood Culture - Preliminary Blood Gram Positive Cocci Gram Stain - Preliminary 12/01/17 10:50 S.aureus & Coag-Neg Staph PNA FISH - Final Blood Blood Culture - Preliminary Gram Positive Cocci Gram Stain - Final 12/01/17 10:37 Urine Culture - Final Urine No Growth (<1,000 CFU/ML) Lab Studies 12/03/17 12/03/17 12/03/17 Range/Units 06:23 06:23 05:05 WBC 16.4 H (4.8-10.8) K/uL RBC 3.03 L (4.40-5.90) Mil/uL Hgb 8.0 L (12.0-18.0) g/dL Hct 24.9 L (35.0-51.0) % MCV 82.3 (80.0-94.0) fL MCH 26.5 L (27.0-31.0) pg MCHC 32.2 L (33.0-37.0) g/dL RDW 16.4 H (11.5-14.5) % Plt Count 200 (130-400) K/uL MPV 11.2 (7.2-11.7) fL Neut % (Auto) 95.1 H (50.0-75.0) % Lymph % (Auto) 1.1 L (20.0-40.0) % Bledsoe % (Auto) 3.4 (0.0-10.0) % Eos % (Auto) 0.2 (0.0-4.0) % Baso % (Auto) 0.2 (0.0-2.0) % Neut # (Auto) 15.6 H (1.8-7.0) K/uL Lymph # (Auto) 0.2 L (1.0-4.3) K/uL [place] # (Auto) 0.6 (0.0-0.8) K/uL Eos # (Auto) 0.0 (0.0-0.7) K/uL Baso # (Auto) 0.0 (0.0-0.2) K/uL Neutrophils % (Manual) 82 H (50-75) % Band Neutrophils % 16 H* (0-2) % Lymphocytes % (Manual) 1 L (20-40) % Monocytes % (Manual) 1 (0-10) % Toxic Granulation Present Platelet Estimate Normal (NORMAL) Large Platelets Present Polychromasia Slight Hypochromasia (manual) Slight Poikilocytosis (manual Slight Anisocytosis (manual) Slight Ovalocytes Slight [place] Cells Slight Puncture Site Lb pCO2 28 L (35-45) mm/Hg pO2 122 H (80-100) mm/Hg HCO3 21.1 (21-28) mmol/L ABG pH 7.43 (7.35-7.45) ABG Total CO2 19.5 L (22-28) mmol/L ABG O2 Saturation 99.4 H (95-98) % ABG Base Excess -4.9 L (-2.0-3.0) mmol/L ABG Hemoglobin 9.0 L (11.7-17.4) g/dL ABG Carboxyhemoglobin 1.5 (0.5-1.5) % POC ABG HHb (Measured) 0.6 (0.0-5.0) % ABG Methemoglobin 1.4 (0.0-3.0) % Parviz Test Na A-a O2 Difference 200.0 mm/Hg Respiratory Index 1.6 Hgb O2 Saturation 96.5 (95.0-98.0) % Vent Mode Prvc Mechanical Rate 16 FiO2 50.0 % Tidal Volume 450 PEEP 5 Sodium 143 (132-148) mmol/L Potassium 3.7 (3.6-5.2) mmol/L Chloride 112 H (98-107) mmol/L Carbon Dioxide 21 L (22-30) mmol/L Anion Gap 13 (10-20) BUN 52 H (9-20) mg/dL Creatinine 2.1 H (0.8-1.5) mg/dL Est GFR ( Amer) 36 Est GFR (Non-Af Amer) 30 POC Glucose (mg/dL) (65-110) mg/dL Random Glucose 124 H (75-110) mg/dL Calcium 7.1 L (8.6-10.4) mg/dl Phosphorus 4.3 (2.5-4.5) mg/dL Magnesium 1.7 (1.6-2.3) mg/dL Total Bilirubin 0.6 (0.2-1.3) mg/dL AST 23 (17-59) U/L ALT 35 (21-72) U/L Alkaline Phosphatase 132 H D (38-126) U/L Total Creatine Kinase (55-170) U/L CK-MB (Mass) (0.0-3.38) ng/mL Troponin I (0.00-0.120) ng/mL Total Protein 5.0 L (6.3-8.3) g/dL Albumin 2.3 L (3.5-5.0) g/dL Globulin 2.6 (2.2-3.9) gm/dL Albumin/Globulin Ratio 0.9 L (1.0-2.1) Fluid Type CSF Volume (0-1) mL CSF Appearance (CLEAR) CSF WBC (0.0-5.0) /mm3 CSF RBC (0.0-0.0) /mm3 CSF Total Cell Counted CSF Monos/Macrophages CSF Comment CSF Glucose (40-70) mg/dL CSF Total Protein (12-60) mg/dL CSF Cryptococcus Ag (NEGATIVE) C. difficile Ag & Toxin (NEGATIVE) H.influenzae Type B Ag (NEGATIVE) N.meningitidis ACY/W135 (NEGATIVE) N.meningi B/E.coli K1 Ag (NEGATIVE) Group B Strep Antigen (NEGATIVE) S. pneumoniae Antigen (NEGATIVE) 12/03/17 12/03/17 12/02/17 Range/Units 05:01 00:23 17:53 WBC (4.8-10.8) K/uL RBC (4.40-5.90) Mil/uL Hgb (12.0-18.0) g/dL Hct (35.0-51.0) % MCV (80.0-94.0) fL MCH (27.0-31.0) pg MCHC (33.0-37.0) g/dL RDW (11.5-14.5) % Plt Count (130-400) K/uL MPV (7.2-11.7) fL Neut % (Auto) (50.0-75.0) % Lymph % (Auto) (20.0-40.0) % [place] % (Auto) (0.0-10.0) % Eos % (Auto) (0.0-4.0) % Baso % (Auto) (0.0-2.0) % Neut # (Auto) (1.8-7.0) K/uL Lymph # (Auto) (1.0-4.3) K/uL [place] # (Auto) (0.0-0.8) K/uL Eos # (Auto) (0.0-0.7) K/uL Baso # (Auto) (0.0-0.2) K/uL Neutrophils % (Manual) (50-75) % Band Neutrophils % (0-2) % Lymphocytes % (Manual) (20-40) % Monocytes % (Manual) (0-10) % Toxic Granulation Platelet Estimate (NORMAL) Large Platelets Polychromasia Hypochromasia (manual) Poikilocytosis (manual Anisocytosis (manual) Ovalocytes Danni Cells Puncture Site pCO2 (35-45) mm/Hg pO2 (80-100) mm/Hg HCO3 (21-28) mmol/L ABG pH (7.35-7.45) ABG Total CO2 (22-28) mmol/L ABG O2 Saturation (95-98) % ABG Base Excess (-2.0-3.0) mmol/L ABG Hemoglobin (11.7-17.4) g/dL ABG Carboxyhemoglobin (0.5-1.5) % POC ABG HHb (Measured) (0.0-5.0) % ABG Methemoglobin (0.0-3.0) % Parviz Test A-a O2 Difference mm/Hg Respiratory Index Hgb O2 Saturation (95.0-98.0) % Vent Mode Mechanical Rate FiO2 % Tidal Volume PEEP Sodium (132-148) mmol/L Potassium (3.6-5.2) mmol/L Chloride (98-107) mmol/L Carbon Dioxide (22-30) mmol/L Anion Gap (10-20) BUN (9-20) mg/dL Creatinine (0.8-1.5) mg/dL Est GFR ( Amer) Est GFR (Non-Af Amer) POC Glucose (mg/dL) 134 H 140 H 195 H (65-110) mg/dL Random Glucose (75-110) mg/dL Calcium (8.6-10.4) mg/dl Phosphorus (2.5-4.5) mg/dL Magnesium (1.6-2.3) mg/dL Total Bilirubin (0.2-1.3) mg/dL AST (17-59) U/L ALT (21-72) U/L Alkaline Phosphatase (38-126) U/L Total Creatine Kinase (55-170) U/L CK-MB (Mass) (0.0-3.38) ng/mL Troponin I (0.00-0.120) ng/mL Total Protein (6.3-8.3) g/dL Albumin (3.5-5.0) g/dL Globulin (2.2-3.9) gm/dL Albumin/Globulin Ratio (1.0-2.1) Fluid Type CSF Volume (0-1) mL CSF Appearance (CLEAR) CSF WBC (0.0-5.0) /mm3 CSF RBC (0.0-0.0) /mm3 CSF Total Cell Counted CSF Monos/Macrophages CSF Comment CSF Glucose (40-70) mg/dL CSF Total Protein (12-60) mg/dL CSF Cryptococcus Ag (NEGATIVE) C. difficile Ag & Toxin (NEGATIVE) H.influenzae Type B Ag (NEGATIVE) N.meningitidis ACY/W135 (NEGATIVE) N.meningi B/E.coli K1 Ag (NEGATIVE) Group B Strep Antigen (NEGATIVE) S. pneumoniae Antigen (NEGATIVE) 12/02/17 12/02/17 12/02/17 Range/Units 16:00 15:32 15:32 WBC (4.8-10.8) K/uL RBC (4.40-5.90) Mil/uL Hgb (12.0-18.0) g/dL Hct (35.0-51.0) % MCV (80.0-94.0) fL MCH (27.0-31.0) pg MCHC (33.0-37.0) g/dL RDW (11.5-14.5) % Plt Count (130-400) K/uL MPV (7.2-11.7) fL Neut % (Auto) (50.0-75.0) % Lymph % (Auto) (20.0-40.0) % [place] % (Auto) (0.0-10.0) % Eos % (Auto) (0.0-4.0) % Baso % (Auto) (0.0-2.0) % Neut # (Auto) (1.8-7.0) K/uL Lymph # (Auto) (1.0-4.3) K/uL [place] # (Auto) (0.0-0.8) K/uL Eos # (Auto) (0.0-0.7) K/uL Baso # (Auto) (0.0-0.2) K/uL Neutrophils % (Manual) (50-75) % Band Neutrophils % (0-2) % Lymphocytes % (Manual) (20-40) % Monocytes % (Manual) (0-10) % Toxic Granulation Platelet Estimate (NORMAL) Large Platelets Polychromasia Hypochromasia (manual) Poikilocytosis (manual Anisocytosis (manual) Ovalocytes [place] Cells Puncture Site pCO2 (35-45) mm/Hg pO2 (80-100) mm/Hg HCO3 (21-28) mmol/L ABG pH (7.35-7.45) ABG Total CO2 (22-28) mmol/L ABG O2 Saturation (95-98) % ABG Base Excess (-2.0-3.0) mmol/L ABG Hemoglobin (11.7-17.4) g/dL ABG Carboxyhemoglobin (0.5-1.5) % POC ABG HHb (Measured) (0.0-5.0) % ABG Methemoglobin (0.0-3.0) % Parviz Test A-a O2 Difference mm/Hg Respiratory Index Hgb O2 Saturation (95.0-98.0) % Vent Mode Mechanical Rate FiO2 % Tidal Volume PEEP Sodium 142 (132-148) mmol/L Potassium 3.5 L (3.6-5.2) mmol/L Chloride 109 H (98-107) mmol/L Carbon Dioxide 22 (22-30) mmol/L Anion Gap 15 (10-20) BUN 47 H (9-20) mg/dL Creatinine 1.8 H (0.8-1.5) mg/dL Est GFR ( Amer) 43 Est GFR (Non-Af Amer) 36 POC Glucose (mg/dL) (65-110) mg/dL Random Glucose 196 H (75-110) mg/dL Calcium 7.6 L (8.6-10.4) mg/dl Phosphorus 4.7 H (2.5-4.5) mg/dL Magnesium (1.6-2.3) mg/dL Total Bilirubin (0.2-1.3) mg/dL AST (17-59) U/L ALT (21-72) U/L Alkaline Phosphatase (38-126) U/L Total Creatine Kinase 35 L (55-170) U/L CK-MB (Mass) 0.99 (0.0-3.38) ng/mL Troponin I 0.4100 H* (0.00-0.120) ng/mL Total Protein (6.3-8.3) g/dL Albumin (3.5-5.0) g/dL Globulin (2.2-3.9) gm/dL Albumin/Globulin Ratio (1.0-2.1) Fluid Type CSF Volume (0-1) mL CSF Appearance (CLEAR) CSF WBC (0.0-5.0) /mm3 CSF RBC (0.0-0.0) /mm3 CSF Total Cell Counted CSF Monos/Macrophages CSF Comment CSF Glucose (40-70) mg/dL CSF Total Protein (12-60) mg/dL CSF Cryptococcus Ag (NEGATIVE) C. difficile Ag & Toxin Negative (NEGATIVE) H.influenzae Type B Ag (NEGATIVE) N.meningitidis ACY/W135 (NEGATIVE) N.meningi B/E.coli K1 Ag (NEGATIVE) Group B Strep Antigen (NEGATIVE) S. pneumoniae Antigen (NEGATIVE) 12/02/17 12/02/17 12/02/17 Range/Units 15:20 15:09 15:09 WBC (4.8-10.8) K/uL RBC (4.40-5.90) Mil/uL Hgb (12.0-18.0) g/dL Hct (35.0-51.0) % MCV (80.0-94.0) fL MCH (27.0-31.0) pg MCHC (33.0-37.0) g/dL RDW (11.5-14.5) % Plt Count (130-400) K/uL MPV (7.2-11.7) fL Neut % (Auto) (50.0-75.0) % Lymph % (Auto) (20.0-40.0) % [place] % (Auto) (0.0-10.0) % Eos % (Auto) (0.0-4.0) % Baso % (Auto) (0.0-2.0) % Neut # (Auto) (1.8-7.0) K/uL Lymph # (Auto) (1.0-4.3) K/uL [place] # (Auto) (0.0-0.8) K/uL Eos # (Auto) (0.0-0.7) K/uL Baso # (Auto) (0.0-0.2) K/uL Neutrophils % (Manual) (50-75) % Band Neutrophils % (0-2) % Lymphocytes % (Manual) (20-40) % Monocytes % (Manual) (0-10) % Toxic Granulation Platelet Estimate (NORMAL) Large Platelets Polychromasia Hypochromasia (manual) Poikilocytosis (manual Anisocytosis (manual) Ovalocytes Danni Cells Puncture Site pCO2 (35-45) mm/Hg pO2 (80-100) mm/Hg HCO3 (21-28) mmol/L ABG pH (7.35-7.45) ABG Total CO2 (22-28) mmol/L ABG O2 Saturation (95-98) % ABG Base Excess (-2.0-3.0) mmol/L ABG Hemoglobin (11.7-17.4) g/dL ABG Carboxyhemoglobin (0.5-1.5) % POC ABG HHb (Measured) (0.0-5.0) % ABG Methemoglobin (0.0-3.0) % Parviz Test A-a O2 Difference mm/Hg Respiratory Index Hgb O2 Saturation (95.0-98.0) % Vent Mode Mechanical Rate FiO2 % Tidal Volume PEEP Sodium (132-148) mmol/L Potassium (3.6-5.2) mmol/L Chloride (98-107) mmol/L Carbon Dioxide (22-30) mmol/L Anion Gap (10-20) BUN (9-20) mg/dL Creatinine (0.8-1.5) mg/dL Est GFR ( Amer) Est GFR (Non-Af Amer) POC Glucose (mg/dL) (65-110) mg/dL Random Glucose (75-110) mg/dL Calcium (8.6-10.4) mg/dl Phosphorus (2.5-4.5) mg/dL Magnesium (1.6-2.3) mg/dL Total Bilirubin (0.2-1.3) mg/dL AST (17-59) U/L ALT (21-72) U/L Alkaline Phosphatase (38-126) U/L Total Creatine Kinase (55-170) U/L CK-MB (Mass) (0.0-3.38) ng/mL Troponin I (0.00-0.120) ng/mL Total Protein (6.3-8.3) g/dL Albumin (3.5-5.0) g/dL Globulin (2.2-3.9) gm/dL Albumin/Globulin Ratio (1.0-2.1) Fluid Type Spinal fluid CSF Volume 1 (0-1) mL CSF Appearance Clear/colorless (CLEAR) CSF WBC 0.0 (0.0-5.0) /mm3 CSF RBC 3.0 H (0.0-0.0) /mm3 CSF Total Cell Counted TEST NOT PERFORMED CSF Monos/Macrophages TEST NOT PERFORMED CSF Comment Diff. not needed CSF Glucose 108 H* (40-70) mg/dL CSF Total Protein 779.0 H* (12-60) mg/dL CSF Cryptococcus Ag Negative (NEGATIVE) C. difficile Ag & Toxin (NEGATIVE) H.influenzae Type B Ag Negative (NEGATIVE) N.meningitidis ACY/W135 Negative (NEGATIVE) N.meningi B/E.coli K1 Ag Negative (NEGATIVE) Group B Strep Antigen Negative (NEGATIVE) S. pneumoniae Antigen Negative (NEGATIVE) Laboratory Results - last 24 hr 12/02/17 12/02/17 12/02/17 15:09 15:09 15:20 WBC RBC Hgb Hct MCV MCH MCHC RDW Plt Count MPV Neut % (Auto) Lymph % (Auto) [place] % (Auto) Eos % (Auto) Baso % (Auto) Neut # (Auto) Lymph # (Auto) [place] # (Auto) Eos # (Auto) Baso # (Auto) Neutrophils % (Manual) Band Neutrophils % Lymphocytes % (Manual) Monocytes % (Manual) Toxic Granulation Platelet Estimate Large Platelets Polychromasia Hypochromasia (manual) Poikilocytosis (manual Anisocytosis (manual) Ovalocytes Danni Cells Puncture Site pCO2 pO2 HCO3 ABG pH ABG Total CO2 ABG O2 Saturation ABG Base Excess ABG Hemoglobin ABG Carboxyhemoglobin POC ABG HHb (Measured) ABG Methemoglobin Parviz Test A-a O2 Difference Respiratory Index Hgb O2 Saturation Vent Mode Mechanical Rate FiO2 Tidal Volume PEEP Sodium Potassium Chloride Carbon Dioxide Anion Gap BUN Creatinine Est GFR ( Amer) Est GFR (Non-Af Amer) POC Glucose (mg/dL) Random Glucose Calcium Phosphorus Magnesium Total Bilirubin AST ALT Alkaline Phosphatase Total Creatine Kinase CK-MB (Mass) Troponin I Total Protein Albumin Globulin Albumin/Globulin Ratio Fluid Type Spinal fluid CSF Volume 1 CSF Appearance Clear/colorless CSF WBC 0.0 CSF RBC 3.0 H CSF Total Cell Counted TEST NOT PERFORMED CSF Monos/Macrophages TEST NOT PERFORMED CSF Comment Diff. not needed CSF Glucose 108 H* CSF Total Protein 779.0 H* CSF Cryptococcus Ag Negative C. difficile Ag & Toxin H.influenzae Type B Ag Negative N.meningitidis ACY/W135 Negative N.meningi B/E.coli K1 Ag Negative Group B Strep Antigen Negative S. pneumoniae Antigen Negative 12/02/17 12/02/17 12/02/17 15:32 15:32 16:00 WBC RBC Hgb Hct MCV MCH MCHC RDW Plt Count MPV Neut % (Auto) Lymph % (Auto) [place] % (Auto) Eos % (Auto) Baso % (Auto) Neut # (Auto) Lymph # (Auto) [place] # (Auto) Eos # (Auto) Baso # (Auto) Neutrophils % (Manual) Band Neutrophils % Lymphocytes % (Manual) Monocytes % (Manual) Toxic Granulation Platelet Estimate Large Platelets Polychromasia Hypochromasia (manual) Poikilocytosis (manual Anisocytosis (manual) Ovalocytes Danni Cells Puncture Site pCO2 pO2 HCO3 ABG pH ABG Total CO2 ABG O2 Saturation ABG Base Excess ABG Hemoglobin ABG Carboxyhemoglobin POC ABG HHb (Measured) ABG Methemoglobin Parviz Test A-a O2 Difference Respiratory Index Hgb O2 Saturation Vent Mode Mechanical Rate FiO2 Tidal Volume PEEP Sodium 142 Potassium 3.5 L Chloride 109 H Carbon Dioxide 22 Anion Gap 15 BUN 47 H Creatinine 1.8 H Est GFR ( Amer) 43 Est GFR (Non-Af Amer) 36 POC Glucose (mg/dL) Random Glucose 196 H Calcium 7.6 L Phosphorus 4.7 H Magnesium Total Bilirubin AST ALT Alkaline Phosphatase Total Creatine Kinase 35 L CK-MB (Mass) 0.99 Troponin I 0.4100 H* Total Protein Albumin Globulin Albumin/Globulin Ratio Fluid Type CSF Volume CSF Appearance CSF WBC CSF RBC CSF Total Cell Counted CSF Monos/Macrophages CSF Comment CSF Glucose CSF Total Protein CSF Cryptococcus Ag C. difficile Ag & Toxin Negative H.influenzae Type B Ag N.meningitidis ACY/W135 N.meningi B/E.coli K1 Ag Group B Strep Antigen S. pneumoniae Antigen 12/02/17 12/03/17 12/03/17 17:53 00:23 05:01 WBC RBC Hgb Hct MCV MCH MCHC RDW Plt Count MPV Neut % (Auto) Lymph % (Auto) [place] % (Auto) Eos % (Auto) Baso % (Auto) Neut # (Auto) Lymph # (Auto) [place] # (Auto) Eos # (Auto) Baso # (Auto) Neutrophils % (Manual) Band Neutrophils % Lymphocytes % (Manual) Monocytes % (Manual) Toxic Granulation Platelet Estimate Large Platelets Polychromasia Hypochromasia (manual) Poikilocytosis (manual Anisocytosis (manual) Ovalocytes [place] Cells Puncture Site pCO2 pO2 HCO3 ABG pH ABG Total CO2 ABG O2 Saturation ABG Base Excess ABG Hemoglobin ABG Carboxyhemoglobin POC ABG HHb (Measured) ABG Methemoglobin Parviz Test A-a O2 Difference Respiratory Index Hgb O2 Saturation Vent Mode Mechanical Rate FiO2 Tidal Volume PEEP Sodium Potassium Chloride Carbon Dioxide Anion Gap BUN Creatinine Est GFR ( Amer) Est GFR (Non-Af Amer) POC Glucose (mg/dL) 195 H 140 H 134 H Random Glucose Calcium Phosphorus Magnesium Total Bilirubin AST ALT Alkaline Phosphatase Total Creatine Kinase CK-MB (Mass) Troponin I Total Protein Albumin Globulin Albumin/Globulin Ratio Fluid Type CSF Volume CSF Appearance CSF WBC CSF RBC CSF Total Cell Counted CSF Monos/Macrophages CSF Comment CSF Glucose CSF Total Protein CSF Cryptococcus Ag C. difficile Ag & Toxin H.influenzae Type B Ag N.meningitidis ACY/W135 N.meningi B/E.coli K1 Ag Group B Strep Antigen S. pneumoniae Antigen 12/03/17 12/03/17 12/03/17 05:05 06:23 06:23 WBC 16.4 H RBC 3.03 L Hgb 8.0 L Hct 24.9 L MCV 82.3 MCH 26.5 L MCHC 32.2 L RDW 16.4 H Plt Count 200 MPV 11.2 Neut % (Auto) 95.1 H Lymph % (Auto) 1.1 L [place] % (Auto) 3.4 Eos % (Auto) 0.2 Baso % (Auto) 0.2 Neut # (Auto) 15.6 H Lymph # (Auto) 0.2 L [place] # (Auto) 0.6 Eos # (Auto) 0.0 Baso # (Auto) 0.0 Neutrophils % (Manual) 82 H Band Neutrophils % 16 H* Lymphocytes % (Manual) 1 L Monocytes % (Manual) 1 Toxic Granulation Present Platelet Estimate Normal Large Platelets Present Polychromasia Slight Hypochromasia (manual) Slight Poikilocytosis (manual Slight Anisocytosis (manual) Slight Ovalocytes Slight Danni Cells Slight Puncture Site Lb pCO2 28 L pO2 122 H HCO3 21.1 ABG pH 7.43 ABG Total CO2 19.5 L ABG O2 Saturation 99.4 H ABG Base Excess -4.9 L ABG Hemoglobin 9.0 L ABG Carboxyhemoglobin 1.5 POC ABG HHb (Measured) 0.6 ABG Methemoglobin 1.4 Parviz Test Na A-a O2 Difference 200.0 Respiratory Index 1.6 Hgb O2 Saturation 96.5 Vent Mode Prvc Mechanical Rate 16 FiO2 50.0 Tidal Volume 450 PEEP 5 Sodium 143 Potassium 3.7 Chloride 112 H Carbon Dioxide 21 L Anion Gap 13 BUN 52 H Creatinine 2.1 H Est GFR ( Amer) 36 Est GFR (Non-Af Amer) 30 POC Glucose (mg/dL) Random Glucose 124 H Calcium 7.1 L Phosphorus 4.3 Magnesium 1.7 Total Bilirubin 0.6 AST 23 ALT 35 Alkaline Phosphatase 132 H D Total Creatine Kinase CK-MB (Mass) Troponin I Total Protein 5.0 L Albumin 2.3 L Globulin 2.6 Albumin/Globulin Ratio 0.9 L Fluid Type CSF Volume CSF Appearance CSF WBC CSF RBC CSF Total Cell Counted CSF Monos/Macrophages CSF Comment CSF Glucose CSF Total Protein CSF Cryptococcus Ag C. difficile Ag & Toxin H.influenzae Type B Ag N.meningitidis [id number] N.meningi B/E.coli K1 Ag Group B Strep Antigen S. pneumoniae Antigen Fingerstick Blood Sugar Results: 134 Assessment/Plan - Assessment and Plan (Free Text) Assessment: 87 y/o male with pmx of hydrocephalus requiring a shunt who was recently admitted to [facility] for respiratory distress. Patient was trasnferred to [facility] and brought back to [facility] for same complaint. -Respiratory distress:intubated to protect airway, continue ventilation, suspect VQ mismatch 2nd aspiration, staph/GPC, continue bronchodilators -Sepsis:serial lactic, LP reveals no WBC, no hydrocephalus as presusre only 5, de-escalate abx, d/c acyclovir, pending HSV PCR, continue vanco/aztronam/doxy -AMS: EEG pending, suspect chronic -contineu peg tube feeds -CAD/NSTEMI/P. A-fib./flutter:asa, statin and verapamil as BP tolerated, obtain cardiology eval, and echo, monitor to keep MAP >65, HR controlled today, start heparin IV for 48 hours -SIMON: 2nd sepsis/hypotension, avoid nephrotoxic drgus, check vanco trough, change vanco to q24hrs, oral mucomyst -bgm q6hrs, novalog q6hrs -pud ppx pepcid -DVT ppx heparin -supplement with MVI/vitamin C -d/c droplet meningitis ruled out/MRSA contact isolation cc time 35 minutes -change from femoral line to IJ central line. Prognosis guarded - Date & Time Date: 12/03/17 Time: 11:55
[2017-12-03] MEDS: Acetylcysteine 20% Inhal Soln (4ml) PO SCH ×2 (12:16→22:58)
[2017-12-03] MEDS: Sodium Chloride 0.9% 1,000 ML IV SCH ×2 (14:25→22:59)
--- NOTE | 2017-12-03 14:41 | CP.PCM.PN ---
Subjective - Date & Time of Evaluation Date of Evaluation: 12/03/17 Time of Evaluation: 13:20 - Subjective Subjective: clinically same Objective - Vital Signs/Intake and Output Vital Signs (last 24 hours): Temp Pulse Resp BP Pulse Ox 99.7 F H 74 21 97/47 L 100 12/03/17 12:00 12/03/17 14:28 12/03/17 14:28 12/03/17 14:28 12/03/17 14:28 Intake and Output: 12/03/17 12/03/17 06:59 18:59 Intake Total 1859.0 1429.5 Output Total 440 40 Balance 1419.0 1389.5 - Medications Medications: Current Medications Acetaminophen (Tylenol 650mg/20.3ml Solution Ud) 650 mg PO Q6 PRN PRN Reason: fever Last Admin: 12/03/17 08:25 Dose: 650 mg Acetylcysteine (Acetylcysteine 20%) 6 ml PO Q12H [facility] Stop: 12/04/17 23:46 Last Admin: 12/03/17 12:16 Dose: 6 ml Aspirin (Aspirin Chewable) 81 mg PO DAILY [facility] Last Admin: 12/03/17 09:39 Dose: 81 mg Bisacodyl (Dulcolax) 10 mg NE Q24H PRN PRN Reason: Constipation Famotidine (Pepcid) 20 mg IVP DAILY [facility] Last Admin: 12/03/17 09:39 Dose: 20 mg Folic Acid (Folic Acid) 1 mg PO DAILY [facility] Last Admin: 12/03/17 09:39 Dose: 1 mg Hydrocortisone Sodium Succinate (Solu-Cortef) 100 mg IV Q8H [facility] Last Admin: 12/03/17 12:16 Dose: 100 mg Vancomycin/Sodium Chloride (Vancomycin 1 Gm/Ns 200 Ml) 1 gm in 200 mls @ 133 mls/hr IVPB Q24H [facility] Stop: 12/07/17 15:01 Last Admin: 12/02/17 14:54 Dose: 133 mls/hr Sodium Chloride (Sodium Chloride 0.9%) 1,000 mls @ 75 mls/hr IV .[id number] [facility] Last Admin: 12/03/17 14:25 Dose: 75 mls/hr Verapamil HCl 40 mg/ Sodium (Chloride) 100 mls @ 12.5 mls/hr IV .Q8H ANA; 5 MG/ HR PRN Reason: Protocol Last Admin: 12/03/17 07:49 Dose: 12.5 mls/hr Phenylephrine HCl 30 mg/ (Sodium Chloride) 253 mls @ 10.12 mls/hr IV .Q24H PRN ; Protocol; 20 MCG/MIN PRN Reason: TITRATE PER MD ORDER Last Admin: 12/03/17 14:28 Dose: 158.1 mcg/min, 80 mls/hr Aztreonam 2 gm/ Sodium (Chloride) 100 mls @ 100 mls/hr IVPB Q12H [facility] Last Admin: 12/03/17 13:45 Dose: 100 mls/hr Doxycycline Hyclate 100 mg/ (Sodium Chloride) 100 mls @ 100 mls/hr IVPB Q12H [facility] Last Admin: 12/03/17 14:38 Dose: 100 mls/hr Heparin Sodium/Sodium Chloride (Heparin 53821 Units/250ml 1/2 Normal Saline) 25 ,000 units in 250 mls @ 6.124 mls/hr IV .Q24H PRN; Protocol; 9 UNITS/KG/HR PRN Reason: PROTOCOL Insulin Aspart (Novolog) 0 unit SC Q6H ANA PRN Reason: Protocol Last Admin: 12/03/17 12:00 Dose: Not Given Latanoprost (Xalatan Opht) 0 ml OD HS [facility] Last Admin: 12/02/17 21:05 Dose: 2.5 ml Rosuvastatin Calcium (Crestor) 5 mg PO HS [facility] Last Admin: 12/02/17 21:05 Dose: 5 mg Thiamine HCl (Vitamin B1 Tab) 100 mg GT DAILY [facility] Last Admin: 12/03/17 09:39 Dose: 100 mg - Labs Labs: 12/03/17 06:23 12/03/17 06:23 PT 12.9 SECONDS (9.7-12.2) H 12/01/17 13:39 INR 1.15 (0.92-1.08) H 12/01/17 13:39 APTT 38 SECONDS (21-34) H D 12/03/17 12:28 - Constitutional Appears: Well - Head Exam Head Exam: ATRAUMATIC, NORMAL INSPECTION, NORMOCEPHALIC - Eye Exam Eye Exam: EOMI, Normal appearance, PERRL Pupil Exam: NORMAL ACCOMODATION, PERRL - ENT Exam ENT Exam: Mucous Membranes Moist, Normal Exam - Neck Exam Neck Exam: Full ROM, Normal Inspection. absent: Lymphadenopathy - Respiratory Exam Respiratory Exam: Decreased Breath Sounds - Cardiovascular Exam Cardiovascular Exam: REGULAR RHYTHM, +S1, +S2 - GI/Abdominal Exam GI & Abdominal Exam: Soft, Diminished Bowel Sounds - Rectal Exam Rectal Exam: Deferred Assessment and Plan (1) Bandemia Status: Acute (2) Dyspnea Status: Acute (3) Fever Status: Acute (4) Lethargy Status: Acute (5) Sepsis Status: Acute (6) Contusion Status: Acute (7) Fall Status: Acute
[2017-12-03] MEDS: Vancomycin 1 gm/NS 200 ml 1 GM/200 ML BAG IVPB SCH (14:48)
--- NOTE | 2017-12-03 14:51 | CP.PCM.PN ---
Subjective - Date & Time of Evaluation Date of Evaluation: 12/03/17 Time of Evaluation: 14:49 - Subjective Subjective: CC: Abnormal Troponin HPI: 87 year old man with following chronic medical problems 1. Dementia 2. Afib 3. Chronic diastolic CHF Came to [facility] for respiratory failure with AMS and increased shortness of breath. He is now intubated. Objective - Vital Signs/Intake and Output Vital Signs (last 24 hours): Temp Pulse Resp BP Pulse Ox 99.7 F H 74 21 97/47 L 100 12/03/17 12:00 12/03/17 14:28 12/03/17 14:28 12/03/17 14:28 12/03/17 14:28 Intake and Output: 12/03/17 12/03/17 06:59 18:59 Intake Total 1859.0 1429.5 Output Total 440 40 Balance 1419.0 1389.5 - Medications Medications: Current Medications Acetaminophen (Tylenol 650mg/20.3ml Solution Ud) 650 mg PO Q6 PRN PRN Reason: fever Last Admin: 12/03/17 08:25 Dose: 650 mg Acetylcysteine (Acetylcysteine 20%) 6 ml PO Q12H [facility] Stop: 12/04/17 23:46 Last Admin: 12/03/17 12:16 Dose: 6 ml Aspirin (Aspirin Chewable) 81 mg PO DAILY [facility] Last Admin: 12/03/17 09:39 Dose: 81 mg Bisacodyl (Dulcolax) 10 mg ND Q24H PRN PRN Reason: Constipation Famotidine (Pepcid) 20 mg IVP DAILY [facility] Last Admin: 12/03/17 09:39 Dose: 20 mg Folic Acid (Folic Acid) 1 mg PO DAILY [facility] Last Admin: 12/03/17 09:39 Dose: 1 mg Hydrocortisone Sodium Succinate (Solu-Cortef) 100 mg IV Q8H [facility] Last Admin: 12/03/17 12:16 Dose: 100 mg Vancomycin/Sodium Chloride (Vancomycin 1 Gm/Ns 200 Ml) 1 gm in 200 mls @ 133 mls/hr IVPB Q24H [facility] Stop: 12/07/17 15:01 Last Admin: 12/02/17 14:54 Dose: 133 mls/hr Sodium Chloride (Sodium Chloride 0.9%) 1,000 mls @ 75 mls/hr IV .[id number] [facility] Last Admin: 12/03/17 14:25 Dose: 75 mls/hr Verapamil HCl 40 mg/ Sodium (Chloride) 100 mls @ 12.5 mls/hr IV .Q8H ANA; 5 MG/ HR PRN Reason: Protocol Last Admin: 12/03/17 07:49 Dose: 12.5 mls/hr Phenylephrine HCl 30 mg/ (Sodium Chloride) 253 mls @ 10.12 mls/hr IV .Q24H PRN ; Protocol; 20 MCG/MIN PRN Reason: TITRATE PER MD ORDER Last Admin: 12/03/17 14:28 Dose: 158.1 mcg/min, 80 mls/hr Aztreonam 2 gm/ Sodium (Chloride) 100 mls @ 100 mls/hr IVPB Q12H [facility] Last Admin: 12/03/17 13:45 Dose: 100 mls/hr Doxycycline Hyclate 100 mg/ (Sodium Chloride) 100 mls @ 100 mls/hr IVPB Q12H [facility] Last Admin: 12/03/17 14:38 Dose: 100 mls/hr Heparin Sodium/Sodium Chloride (Heparin 50332 Units/250ml 1/2 Normal Saline) 25 ,000 units in 250 mls @ 6.124 mls/hr IV .Q24H PRN; Protocol; 9 UNITS/KG/HR PRN Reason: PROTOCOL Insulin Aspart (Novolog) 0 unit SC Q6H ANA PRN Reason: Protocol Last Admin: 12/03/17 12:00 Dose: Not Given Latanoprost (Xalatan Opht) 0 ml OD HS [facility] Last Admin: 12/02/17 21:05 Dose: 2.5 ml Rosuvastatin Calcium (Crestor) 5 mg PO HS [facility] Last Admin: 12/02/17 21:05 Dose: 5 mg Thiamine HCl (Vitamin B1 Tab) 100 mg GT DAILY [facility] Last Admin: 12/03/17 09:39 Dose: 100 mg - Labs Labs: 12/03/17 06:23 12/03/17 06:23 PT 12.9 SECONDS (9.7-12.2) H 12/01/17 13:39 INR 1.15 (0.92-1.08) H 12/01/17 13:39 APTT 38 SECONDS (21-34) H D 12/03/17 12:28 - Constitutional Appears: Chronically Ill (Intubaed ) - Head Exam Additional comments: DIELECTRIC PRESS OPERATOR Shunt +Temporal wasting - Respiratory Exam Respiratory Exam: Rhonchi Additional comments: Mechanical vent - Cardiovascular Exam Cardiovascular Exam: Irregular Rhythm, RRR, +S1, +S2, +S4, Murmur (CONNOR I/ ) Additional comments: +Sacral edema - GI/Abdominal Exam GI & Abdominal Exam: Normal Bowel Sounds. absent: Organomegaly Assessment and Plan - Assessment and Plan (Free Text) Assessment: 2D echo images viewed by me: Moderate LV dysfunction, technically limited study due tachycardia during the study. EF 45%%, patient appears to be in afib EKG images viewed by me: Atrial fibrillation CXR: Severe rotation, poor inspirtory effort, ETT A/P: 87 year old man with dementia, hydrocephalus s/p DIELECTRIC PRESS OPERATOR shunt Respirtory failure although mostly driven by poor mental status some element of pulmonary edema is contributing, diuresis Acute on chronic Diastolic CHF - EF 45-50% when hemodynamically stable add coreg , Afib chronic not a candidate for anticoagulation CC 301 341pm
--- NOTE | 2017-12-03 15:06 | RAD ---
Chest, one view Indication: Chest x-ray performed 12/03/17 Comparison: Chest x-ray performed 12/03/17 at 711 hours Findings: Examination limited by habitus and patient obliquity. Right IJ approach central venous catheter extends the SVC. Endotracheal tube terminates approximately 4.9 cm above the dg. Numerous external wires and leads project over the chest obscuring evaluation of the underlying parenchyma. Partially imaged cardiomegaly. Pulmonary venous congestion. Layering bilateral pleural effusions and bibasilar atelectasis/infiltrates. Right apical opacity may reflect pleural thickening/fluid or consolidation. Bilateral lung bases excluded from view. Osseous demineralization. Degenerative changes of the spine. Impression: Limited study. Right IJ approach central venous catheter extends the SVC. Endotracheal tube terminates approximately 4.9 cm above the dg. Numerous external wires and leads project over the chest obscuring evaluation of the underlying parenchyma. Partially imaged cardiomegaly. Pulmonary venous congestion. Right apical opacity may reflect pleural thickening/fluid or consolidation. Layering bilateral pleural effusions and bibasilar atelectasis/infiltrates. Bilateral lung bases excluded from view.
--- NOTE | 2017-12-03 15:28 | US ---
HISTORY: SIMON r/o hydro COMPARISON: None available. TECHNIQUE: Sonographic evaluation of the abdomen. FINDINGS: LIVER: Measures 19.2 cm in sagittal dimension. Echogenic liver may be seen in setting of hepatic parenchymal disease or fatty infiltration. No focal hepatic mass identified. The main portal vein appears patent with normal directional flow. No intrahepatic bile duct dilatation. GALLBLADDER: Gallstones. Gallbladder wall thickening/edema measures approximately 1 cm. Small fluid adjacent to the gallbladder wall. Negative sonographic Webb's sign as assessed by the shell sieve operator. COMMON BILE DUCT: Measures 5 mm. PANCREAS: Not well visualized. RIGHT KIDNEY: Measures 11.6 x 5.3 x 5.1 cm. No obstructing calculus or hydronephrosis identified. LEFT KIDNEY: Measures 11.1 x 4.9 x 4.5 cm. No obstructing calculus or hydronephrosis identified. SPLEEN: Measures approximately 11.6 cm. AORTA: Limited views appear unremarkable. IVC: Limited views appear unremarkable. OTHER FINDINGS: Trace fluid adjacent to the spleen. IMPRESSION: Hepatomegaly. Echogenic liver may be seen in setting of hepatic parenchymal disease or fatty infiltration. Cholelithiasis. Gallbladder wall thickening/edema measures approximately 1 cm. Small pericholecystic fluid noted. Negative sonographic Webb's sign as assessed by the shell sieve operator. Correlate clinically for possibility of cholecystitis. Trace fluid adjacent to the spleen.
--- NOTE | 2017-12-03 16:07 | PCM.PROC ---
Procedures Attestation:: I certify that I have explained the specified Operation(s) or Procedure(s), risks, benefits and reasonable alternatives to the Patient and/or other person responsible. The opportunity was given to ask questions and all questions answered - Central Line Placement Right Internal Jugular Triple Lumen Catheter Aseptic technique was employed throughout the procedure: Full sterile barriers ( mask, hair cover, sterile gown, sterile gloves), Chloraprep Antiseptic: 30 second prep for IJ or SC sites CVP Time Out Performed: Yes Pt. Placed on Pulse Ox Monitor: Yes Central Line Prep: Chlorhexidine-Alcohol Combination Local Anesthesia Used: Lidocaine 1% Amount of Anesthesia Used (mls): 5 Ultrasound Used for Placement: Yes Central Line Lumen Inserted: triple Central Line Length: 20 cm Post Procedure: Sutured in Place, Good Blood Return, All Ports Aspirated, Flushed, Capped, Sterile Dressing Applied Secured by: Suture Post procedure dressing: Clear vapor permeable, Chlorhexidine disc (Biopatch) Post Procedure X-Ray: Yes Patient Tolerated Procedure: Well Immediate Complications: None
--- NOTE | 2017-12-03 16:13 | CP.PCM.CON ---
History of Present Illness - History of Present Illness History of Present Illness: 87 yr old male who is a custodial resident, who was brought here septic, with increased bands, pmh of afib, dementia and htn, febrile. History is obtained from chart as patient is unable to give a history and he is very lethargic. There is a question of meningitis, for which is peforming LP. There is no history of seizure or stroke in the NH, and he became more confused over the 24 hours before presentation. He is admitted to the ICU, intubated and was just given 2mg ativan. ID CONSULTED FOR ANTIBIOTIC MANAGEMENT PMH: Atrial Fibrillation, Dementia, HTN Family History: States: Diabetes Review of Systems - Review of Systems Systems not reviewed;Unavailable: Altered Mental Status All systems: reviewed and no additional remarkable complaints except - Constitutional Constitutional: As Per HPI - EENT Eyes: absent: As Per HPI, Blind Spots, Blurred Vision, Change in Vision, Decreased Night Vision, Diplopia, Discharge, Dry Eye, Exophthalmos, Floaters, Irritation, Itchy Eyes, Loss of Peripheral Vision, Pain, Photophobia, Requires Corrective Lenses, Sees Flashes, Spots in Vision, Tunnel Vision, Other Visual Disturbances, Loss of Vision, Other Ears: absent: As Per HPI, Decreased Hearing, Ear Discharge, Ear Pain, Tinnitus, Abnormal Hearing, Disequilibrium, Dizziness, Other Nose/Mouth/Throat: absent: As Per HPI, Epistaxis, Nasal Congestion, Nasal Discharge, Nasal Obstruction, Nasal Trauma, Nose Pain, Post Nasal Drip, Sinus Pain, Sinus Pressure, Bleeding Gums, Change in Voice, Dental Pain, Dry Mouth, Dysphagia, Halitosis, Hoarsness, Lip Swelling, Mouth Lesions, Mouth Pain, Odynophagia, Sore Throat, Throat Swelling, Tongue Swelling, Facial Pain, Neck Pain, Neck Mass, Other - Cardiovascular Cardiovascular: As Per HPI - Respiratory Respiratory: As Per HPI - Gastrointestinal Gastrointestinal: absent: As Per HPI, Abdominal Pain, Belching, Bloating, Change in Bowel Habits, Change in Stool Character, Coffee Ground Emesis, Constipation, Cramping, Diarrhea, Dyspepsia, Dysphagia, Early Satiety, Excessive Flatus, Fecal Incontinence, Heartburn, Hematemesis, Hematochezia, Loose Stools, Melena, Nausea, Odynophagia, Temesmus, Vomiting, Other - Genitourinary Genitourinary: absent: As Per HPI, Change in Urinary Stream, Difficulty Urinating, Dysuria, Flank Pain, Hematuria, Pyuria, Nocturia, Urinary Incontinence, Urinary Frequency, Urinary Hesitance, Urinary Urgency, Voiding Freq/Small Amts, Freq UTI, Hx Renal/Bladder Calculi, Hx /Renal Surgery, Bladder Distension, Other - Musculoskeletal Musculoskeletal: absent: As Per HPI, Abnormal Gait, Arthralgias, Atrophy, Back Pain, Deformity, Joint Swelling, Limited Range of Motion, Loss of Height, Muscle Cramps, Muscle Weakness, Myalgias, Neck Pain, Numbness, Radiating Pain into Limb, Stiffness, Tingling, Other - Integumentary Integumentary: absent: As Per HPI, Acne, Alopecia, Bleeding Lesions, Change in Hair, Change in Nails, Change in Pigmentation, Changing Lesions, Dry Skin, Erythema, Furuncle, Hirsutism, Lesions, New Lesions, Non-Healing Lesions, Photosensitivity, Pruritus, Rash, Skin Pain, Skin Ulcer, Sores, Striae, Swelling , Unusual Bruising, Wounds, Jaundice, Other - Neurological Neurological: As Per HPI - Psychiatric Psychiatric: absent: As Per HPI, Abnormal Sleep Pattern, Anhedonia, Anxiety, Auditory Hallucinations, Behavioral Changes, Change in Appetite, Change in Libido, Confusion, Depression, Difficulty Concentrating, Hallucinations, Homicidal Ideation, Hopelessness, Irritability, Memory Loss, Mood Swings, Panic Attacks, Paranoia, Suicidal Ideation, Visual Hallucinations, Tactile Hallucinations, Other - Endocrine Endocrine: absent: As Per HPI, Change in Body Appearance, Change in Libido, Cold Intolorance, Deepening of Voice, Excessive Sweating, Fatigue, Flushing, Heat Intolorance, Increase in Ring/Shoe/Hat Size, Palpitations, Polydipsia, Polyphagia, Polyuria, Other - Hematologic/Lymphatic Hematologic: absent: As Per HPI, Easy Bleeding, Easy Bruising, Lymphadenopathy, Other Past Patient History - Past Medical History & Family History Past Medical History?: Yes - Past Social History Smoking Status: Never Smoked - CARDIAC Hx Atrial Fibrillation: Yes Hx Hypertension: Yes - PULMONARY Hx Respiratory Disorders: No - NEUROLOGICAL Hx Dementia: Yes - HEENT Hx HEENT Problems: Yes Hx Cataracts: Yes - RENAL Hx Chronic Kidney Disease: No - ENDOCRINE/METABOLIC Hx Endocrine Disorders: Yes Hx Diabetes Mellitus Type 2: Yes - HEMATOLOGICAL/ONCOLOGICAL Hx Blood Disorders: No - INTEGUMENTARY Hx Dermatological Problems: No - MUSCULOSKELETAL/RHEUMATOLOGICAL Hx Musculoskeletal Disorders: Yes Hx Falls: Yes - GASTROINTESTINAL Hx Gastrointestinal Disorders: Yes Other/Comment: dysphagia - GENITOURINARY/GYNECOLOGICAL Hx Genitourinary Disorders: No - PSYCHIATRIC Hx Substance Use: No - SURGICAL HISTORY Hx Surgeries: Yes Other/Comment: 'SHUNT' - ANESTHESIA Hx Anesthesia Reactions: No Meds Allergies/Adverse Reactions: Allergies Allergy/AdvReac Type Severity Reaction Status Date / Time lisinopril Allergy Verified 12/01/17 10:28 Penicillins Allergy Verified 12/01/17 10:20 TOMATO Allergy Uncoded 01/26/17 12:02 - Medications Medications: Current Medications Acetaminophen (Tylenol 650mg/20.3ml Solution Ud) 650 mg PO Q6 PRN PRN Reason: fever Last Admin: 12/03/17 08:25 Dose: 650 mg Acetylcysteine (Acetylcysteine 20%) 6 ml PO Q12H [facility] Stop: 12/04/17 23:46 Last Admin: 12/03/17 12:16 Dose: 6 ml Aspirin (Aspirin Chewable) 81 mg PO DAILY [facility] Last Admin: 12/03/17 09:39 Dose: 81 mg Bisacodyl (Dulcolax) 10 mg [place] Q24H PRN PRN Reason: Constipation Famotidine (Pepcid) 20 mg IVP DAILY [facility] Last Admin: 12/03/17 09:39 Dose: 20 mg Folic Acid (Folic Acid) 1 mg PO DAILY [facility] Last Admin: 12/03/17 09:39 Dose: 1 mg Hydrocortisone Sodium Succinate (Solu-Cortef) 100 mg IV Q8H [facility] Last Admin: 12/03/17 12:16 Dose: 100 mg Vancomycin/Sodium Chloride (Vancomycin 1 Gm/Ns 200 Ml) 1 gm in 200 mls @ 133 mls/hr IVPB Q24H [facility] Stop: 12/07/17 15:01 Last Admin: 12/03/17 14:48 Dose: 133 mls/hr Sodium Chloride (Sodium Chloride 0.9%) 1,000 mls @ 75 mls/hr IV .[id number] [facility] Last Admin: 12/03/17 14:25 Dose: 75 mls/hr Verapamil HCl 40 mg/ Sodium (Chloride) 100 mls @ 12.5 mls/hr IV .Q8H [facility]; 5 MG/ HR PRN Reason: Protocol Last Admin: 12/03/17 07:49 Dose: 12.5 mls/hr Phenylephrine HCl 30 mg/ (Sodium Chloride) 253 mls @ 10.12 mls/hr IV .Q24H PRN ; Protocol; 20 MCG/MIN PRN Reason: TITRATE PER MD ORDER Last Admin: 12/03/17 14:28 Dose: 158.1 mcg/min, 80 mls/hr Aztreonam 2 gm/ Sodium (Chloride) 100 mls @ 100 mls/hr IVPB Q12H [facility] Last Admin: 12/03/17 13:45 Dose: 100 mls/hr Doxycycline Hyclate 100 mg/ (Sodium Chloride) 100 mls @ 100 mls/hr IVPB Q12H [facility] Last Admin: 12/03/17 14:38 Dose: 100 mls/hr Heparin Sodium/Sodium Chloride (Heparin 06105 Units/250ml 1/2 Normal Saline) 25 ,000 units in 250 mls @ 6.124 mls/hr IV .Q24H PRN; Protocol; 9 UNITS/KG/HR PRN Reason: PROTOCOL Insulin Aspart (Novolog) 0 unit SC Q6H ANA PRN Reason: Protocol Last Admin: 12/03/17 12:00 Dose: Not Given Latanoprost (Xalatan Opht) 0 ml OD HS [facility] Last Admin: 12/02/17 21:05 Dose: 2.5 ml Rosuvastatin Calcium (Crestor) 5 mg PO HS [facility] Last Admin: 12/02/17 21:05 Dose: 5 mg Sucralfate (Carafate Oral Susp) 1 gm PO TID [facility] Thiamine HCl (Vitamin B1 Tab) 100 mg GT DAILY [facility] Last Admin: 12/03/17 09:39 Dose: 100 mg Physical Exam - Constitutional Appears: Non-toxic, Confused, Cachectic, Chronically Ill - Head Exam Head Exam: NORMOCEPHALIC - Eye Exam Eye Exam: PERRL. absent: Scleral icterus - ENT Exam ENT Exam: Mucous Membranes Dry - Neck Exam Neck exam: Negative for: Lymphadenopathy - Respiratory Exam Respiratory Exam: Decreased Breath Sounds, Rhonchi - Cardiovascular Exam Cardiovascular Exam: REGULAR RHYTHM, +S1, +S2 - GI/Abdominal Exam GI & Abdominal Exam: Diminished Bowel Sounds, Soft. absent: Tenderness - Rectal Exam Rectal Exam: Deferred - Exam Exam: NORMAL INSPECTION - Extremities Exam Extremities exam: Negative for: pedal edema - Back Exam Back exam: absent: CVA tenderness (L), CVA tenderness (R) - Neurological Exam Neurological exam: Altered, CN II-XII Intact - Psychiatric Exam Psychiatric exam: Depressed - Skin Skin Exam: Dry Results - Vital Signs Recent Vital Signs: Last Vital Signs Temp 99.7 F H 12/03/17 12:00 Pulse 89 12/03/17 15:00 Resp 21 12/03/17 15:00 BP 90/59 L 12/03/17 15:00 Pulse Ox 97 12/03/17 15:00 - Labs Result Diagrams: 12/03/17 06:23 12/03/17 06:23 Labs: Laboratory Results - last 24 hr 12/02/17 12/02/17 12/02/17 15:09 15:20 15:32 WBC RBC Hgb Hct MCV MCH MCHC RDW Plt Count MPV Neut % (Auto) Lymph % (Auto) [place] % (Auto) Eos % (Auto) Baso % (Auto) Neut # (Auto) Lymph # (Auto) [place] # (Auto) Eos # (Auto) Baso # (Auto) Neutrophils % (Manual) Band Neutrophils % Lymphocytes % (Manual) Monocytes % (Manual) Toxic Granulation Platelet Estimate Large Platelets Polychromasia Hypochromasia (manual) Poikilocytosis (manual Anisocytosis (manual) Ovalocytes Jackson Cells APTT Puncture Site pCO2 pO2 HCO3 ABG pH ABG Total CO2 ABG O2 Saturation ABG Base Excess ABG Hemoglobin ABG Carboxyhemoglobin POC ABG HHb (Measured) ABG Methemoglobin Parviz Test A-a O2 Difference Respiratory Index Hgb O2 Saturation Vent Mode Mechanical Rate FiO2 Tidal Volume PEEP Sodium Potassium Chloride Carbon Dioxide Anion Gap BUN Creatinine Est GFR ( Amer) Est GFR (Non-Af Amer) POC Glucose (mg/dL) Random Glucose Calcium Phosphorus Magnesium Total Bilirubin AST ALT Alkaline Phosphatase CK-MB (Mass) 0.99 Troponin I 0.4100 H* Total Protein Albumin Globulin Albumin/Globulin Ratio CSF Glucose 108 H* CSF Total Protein 779.0 H* Vancomycin Trough C. difficile Ag & Toxin H.influenzae Type B Ag Negative N.meningitidis ACY/W135 Negative N.meningi B/E.coli K1 Ag Negative Group B Strep Antigen Negative S. pneumoniae Antigen Negative 12/02/17 12/02/17 12/03/17 16:00 17:53 00:23 WBC RBC Hgb Hct MCV MCH MCHC RDW Plt Count MPV Neut % (Auto) Lymph % (Auto) [place] % (Auto) Eos % (Auto) Baso % (Auto) Neut # (Auto) Lymph # (Auto) [place] # (Auto) Eos # (Auto) Baso # (Auto) Neutrophils % (Manual) Band Neutrophils % Lymphocytes % (Manual) Monocytes % (Manual) Toxic Granulation Platelet Estimate Large Platelets Polychromasia Hypochromasia (manual) Poikilocytosis (manual Anisocytosis (manual) Ovalocytes Jackson Cells APTT Puncture Site pCO2 pO2 HCO3 ABG pH ABG Total CO2 ABG O2 Saturation ABG Base Excess ABG Hemoglobin ABG Carboxyhemoglobin POC ABG HHb (Measured) ABG Methemoglobin Parviz Test A-a O2 Difference Respiratory Index Hgb O2 Saturation Vent Mode Mechanical Rate FiO2 Tidal Volume PEEP Sodium Potassium Chloride Carbon Dioxide Anion Gap BUN Creatinine Est GFR ( Amer) Est GFR (Non-Af Amer) POC Glucose (mg/dL) 195 H 140 H Random Glucose Calcium Phosphorus Magnesium Total Bilirubin AST ALT Alkaline Phosphatase CK-MB (Mass) Troponin I Total Protein Albumin Globulin Albumin/Globulin Ratio CSF Glucose CSF Total Protein Vancomycin Trough C. difficile Ag & Toxin Negative H.influenzae Type B Ag N.meningitidis ACY/W135 N.meningi B/E.coli K1 Ag Group B Strep Antigen S. pneumoniae Antigen 12/03/17 12/03/17 12/03/17 05:01 05:05 06:23 WBC 16.4 H RBC 3.03 L Hgb 8.0 L Hct 24.9 L MCV 82.3 MCH 26.5 L MCHC 32.2 L RDW 16.4 H Plt Count 200 MPV 11.2 Neut % (Auto) 95.1 H Lymph % (Auto) 1.1 L [place] % (Auto) 3.4 Eos % (Auto) 0.2 Baso % (Auto) 0.2 Neut # (Auto) 15.6 H Lymph # (Auto) 0.2 L [place] # (Auto) 0.6 Eos # (Auto) 0.0 Baso # (Auto) 0.0 Neutrophils % (Manual) 82 H Band Neutrophils % 16 H* Lymphocytes % (Manual) 1 L Monocytes % (Manual) 1 Toxic Granulation Present Platelet Estimate Normal Large Platelets Present Polychromasia Slight Hypochromasia (manual) Slight Poikilocytosis (manual Slight Anisocytosis (manual) Slight Ovalocytes Slight Jackson Cells Slight APTT Puncture Site Lb pCO2 28 L pO2 122 H HCO3 21.1 ABG pH 7.43 ABG Total CO2 19.5 L ABG O2 Saturation 99.4 H ABG Base Excess -4.9 L ABG Hemoglobin 9.0 L ABG Carboxyhemoglobin 1.5 POC ABG HHb (Measured) 0.6 ABG Methemoglobin 1.4 Parviz Test Na A-a O2 Difference 200.0 Respiratory Index 1.6 Hgb O2 Saturation 96.5 Vent Mode Prvc Mechanical Rate 16 FiO2 50.0 Tidal Volume 450 PEEP 5 Sodium Potassium Chloride Carbon Dioxide Anion Gap BUN Creatinine Est GFR ( Amer) Est GFR (Non-Af Amer) POC Glucose (mg/dL) 134 H Random Glucose Calcium Phosphorus Magnesium Total Bilirubin AST ALT Alkaline Phosphatase CK-MB (Mass) Troponin I Total Protein Albumin Globulin Albumin/Globulin Ratio CSF Glucose CSF Total Protein Vancomycin Trough C. difficile Ag & Toxin H.influenzae Type B Ag N.meningitidis ACY/W135 N.meningi B/E.coli K1 Ag Group B Strep Antigen S. pneumoniae Antigen 12/03/17 12/03/17 12/03/17 06:23 12:05 12:28 WBC RBC Hgb Hct MCV MCH MCHC RDW Plt Count MPV Neut % (Auto) Lymph % (Auto) [place] % (Auto) Eos % (Auto) Baso % (Auto) Neut # (Auto) Lymph # (Auto) [place] # (Auto) Eos # (Auto) Baso # (Auto) Neutrophils % (Manual) Band Neutrophils % Lymphocytes % (Manual) Monocytes % (Manual) Toxic Granulation Platelet Estimate Large Platelets Polychromasia Hypochromasia (manual) Poikilocytosis (manual Anisocytosis (manual) Ovalocytes Jackson Cells APTT 38 H D Puncture Site pCO2 pO2 HCO3 ABG pH ABG Total CO2 ABG O2 Saturation ABG Base Excess ABG Hemoglobin ABG Carboxyhemoglobin POC ABG HHb (Measured) ABG Methemoglobin Parviz Test A-a O2 Difference Respiratory Index Hgb O2 Saturation Vent Mode Mechanical Rate FiO2 Tidal Volume PEEP Sodium 143 Potassium 3.7 Chloride 112 H Carbon Dioxide 21 L Anion Gap 13 BUN 52 H Creatinine 2.1 H Est GFR ( Amer) 36 Est GFR (Non-Af Amer) 30 POC Glucose (mg/dL) Random Glucose 124 H Calcium 7.1 L Phosphorus 4.3 Magnesium 1.7 Total Bilirubin 0.6 AST 23 ALT 35 Alkaline Phosphatase 132 H D CK-MB (Mass) Troponin I Total Protein 5.0 L Albumin 2.3 L Globulin 2.6 Albumin/Globulin Ratio 0.9 L CSF Glucose CSF Total Protein Vancomycin Trough 12.2 H C. difficile Ag & Toxin H.influenzae Type B Ag N.meningitidis ACY/W135 N.meningi B/E.coli K1 Ag Group B Strep Antigen S. pneumoniae Antigen 12/03/17 12:33 WBC RBC Hgb Hct MCV MCH MCHC RDW Plt Count MPV Neut % (Auto) Lymph % (Auto) [place] % (Auto) Eos % (Auto) Baso % (Auto) Neut # (Auto) Lymph # (Auto) [place] # (Auto) Eos # (Auto) Baso # (Auto) Neutrophils % (Manual) Band Neutrophils % Lymphocytes % (Manual) Monocytes % (Manual) Toxic Granulation Platelet Estimate Large Platelets Polychromasia Hypochromasia (manual) Poikilocytosis (manual Anisocytosis (manual) Ovalocytes Danni Cells APTT Puncture Site pCO2 pO2 HCO3 ABG pH ABG Total CO2 ABG O2 Saturation ABG Base Excess ABG Hemoglobin ABG Carboxyhemoglobin POC ABG HHb (Measured) ABG Methemoglobin Parviz Test A-a O2 Difference Respiratory Index Hgb O2 Saturation Vent Mode Mechanical Rate FiO2 Tidal Volume PEEP Sodium Potassium Chloride Carbon Dioxide Anion Gap BUN Creatinine Est GFR ( Amer) Est GFR (Non-Af Amer) POC Glucose (mg/dL) 160 H Random Glucose Calcium Phosphorus Magnesium Total Bilirubin AST ALT Alkaline Phosphatase CK-MB (Mass) Troponin I Total Protein Albumin Globulin Albumin/Globulin Ratio CSF Glucose CSF Total Protein Vancomycin Trough C. difficile Ag & Toxin H.influenzae Type B Ag N.meningitidis ACY/W135 N.meningi B/E.coli K1 Ag Group B Strep Antigen S. pneumoniae Antigen Assessment & Plan (1) Respiratory failure Status: Acute (2) Pneumonia Status: Acute (3) Bandemia Status: Acute (4) Fever Status: Acute (5) Lethargy Status: Acute (6) Sepsis Status: Acute (7) Respiratory failure Status: Acute (8) Pneumonia Status: Acute - Assessment and Plan (Free Text) Assessment: SPUTUM AND BLOOD SHOWING GRAM + COCCI AWAIT ID AND SENSITIVITY POOR PROGNOSIS FROM THE OUTSET CONSIDER OSMEL WHRN STABLE
--- NOTE | 2017-12-03 16:26 | CP.PCM.PN ---
Subjective - Date & Time of Evaluation Date of Evaluation: 12/03/17 Time of Evaluation: 16:26 Objective - Vital Signs/Intake and Output Vital Signs (last 24 hours): Temp Pulse Resp BP Pulse Ox 99.7 F H 89 21 90/59 L 97 12/03/17 12:00 12/03/17 15:00 12/03/17 15:00 12/03/17 15:00 12/03/17 15:00 Intake and Output: 12/03/17 12/03/17 06:59 18:59 Intake Total 1859.0 4344.5 Output Total 440 75 Balance 1419.0 4269.5 - Medications Medications: Current Medications Acetaminophen (Tylenol 650mg/20.3ml Solution Ud) 650 mg PO Q6 PRN PRN Reason: fever Last Admin: 12/03/17 08:25 Dose: 650 mg Acetylcysteine (Acetylcysteine 20%) 6 ml PO Q12H [facility] Stop: 12/04/17 23:46 Last Admin: 12/03/17 12:16 Dose: 6 ml Aspirin (Aspirin Chewable) 81 mg PO DAILY [facility] Last Admin: 12/03/17 09:39 Dose: 81 mg Bisacodyl (Dulcolax) 10 mg [place] Q24H PRN PRN Reason: Constipation Famotidine (Pepcid) 20 mg IVP DAILY [facility] Last Admin: 12/03/17 09:39 Dose: 20 mg Folic Acid (Folic Acid) 1 mg PO DAILY [facility] Last Admin: 12/03/17 09:39 Dose: 1 mg Hydrocortisone Sodium Succinate (Solu-Cortef) 100 mg IV Q8H [facility] Last Admin: 12/03/17 12:16 Dose: 100 mg Vancomycin/Sodium Chloride (Vancomycin 1 Gm/Ns 200 Ml) 1 gm in 200 mls @ 133 mls/hr IVPB Q24H [facility] Stop: 12/07/17 15:01 Last Admin: 12/03/17 14:48 Dose: 133 mls/hr Sodium Chloride (Sodium Chloride 0.9%) 1,000 mls @ 75 mls/hr IV .[id number] [facility] Last Admin: 12/03/17 14:25 Dose: 75 mls/hr Verapamil HCl 40 mg/ Sodium (Chloride) 100 mls @ 12.5 mls/hr IV .Q8H [facility]NA; 5 MG/ HR PRN Reason: Protocol Last Admin: 12/03/17 16:20 Dose: 12.5 mls/hr Phenylephrine HCl 30 mg/ (Sodium Chloride) 253 mls @ 10.12 mls/hr IV .Q24H PRN ; Protocol; 20 MCG/MIN PRN Reason: TITRATE PER MD ORDER Last Admin: 12/03/17 14:28 Dose: 158.1 mcg/min, 80 mls/hr Aztreonam 2 gm/ Sodium (Chloride) 100 mls @ 100 mls/hr IVPB Q12H [facility] Last Admin: 12/03/17 13:45 Dose: 100 mls/hr Doxycycline Hyclate 100 mg/ (Sodium Chloride) 100 mls @ 100 mls/hr IVPB Q12H [facility] Last Admin: 12/03/17 14:38 Dose: 100 mls/hr Heparin Sodium/Sodium Chloride (Heparin 26333 Units/250ml 1/2 Normal Saline) 25 ,000 units in 250 mls @ 6.124 mls/hr IV .Q24H PRN; Protocol; 9 UNITS/KG/HR PRN Reason: PROTOCOL Last Admin: 12/03/17 16:22 Dose: 9 units/kg/hr, 6.124 mls/hr Insulin Aspart (Novolog) 0 unit SC Q6H ANA PRN Reason: Protocol Last Admin: 12/03/17 12:00 Dose: Not Given Latanoprost (Xalatan Opht) 0 ml OD HS [facility] Last Admin: 12/02/17 21:05 Dose: 2.5 ml Rosuvastatin Calcium (Crestor) 5 mg PO HS [facility] Last Admin: 12/02/17 21:05 Dose: 5 mg Sucralfate (Carafate Oral Susp) 1 gm PO TID [facility] Thiamine HCl (Vitamin B1 Tab) 100 mg GT DAILY [facility] Last Admin: 12/03/17 09:39 Dose: 100 mg - Labs Labs: 12/03/17 06:23 12/03/17 06:23 PT 12.9 SECONDS (9.7-12.2) H 12/01/17 13:39 INR 1.15 (0.92-1.08) H 12/01/17 13:39 APTT 38 SECONDS (21-34) H D 12/03/17 12:28
[2017-12-03] MEDS: Sucralfate 1 gm/10 ml Oral Susp UD PO SCH (18:22)
[2017-12-03] MEDS ORDERED: PHENYLEPHRINE IV PRN (21:00)
[2017-12-03] MEDS ORDERED: SODIUM CHLORIDE 0.9% IV PRN (21:00)
[2017-12-03] MEDS: Latanoprost 2.5 ml Opht Soln OD SCH (21:16)
[2017-12-03] MEDS ORDERED: (Novolog) Insulin Aspart, Recombinant 100 u/ml 10 ml vial SC SCH (22:41)
[2017-12-04] MEDS ORDERED: Heparin25000 units/250ml 1/2NS 25,000 UNITS/250 ML BAG IV PRN (00:03)
[2017-12-04] MEDS: Verapamil 40 MG in Sodium Chloride 0.9% 84 ML IV SCH ×2 (00:14→08:00)
[2017-12-04] MEDS: (Novolog) Insulin Aspart, Recombinant 100 u/ml 10 ml vial SC SCH ×4 (00:23→18:00)
[2017-12-04] MEDS ORDERED: Sodium Chloride 0.9% 1,000 ML IV ONE ×2 (01:00)
[2017-12-04] MEDS: Aztreonam 2 GM in Sodium Chloride 0.9% 100 ML IVPB SCH ×2 (01:03→11:59)
[2017-12-04] MEDS ORDERED: Lactated Ringer's 1,000 ML IV ONE ×2 (02:22)
[2017-12-04 04:34] LABS: ARTERIAL BLOOD GAS HCO3 17.1 mmol/L (21-28); ARTERIAL BLOOD GAS HEMOGLOBIN 8.3 g/dL (11.7-17.4); ARTERIAL BLOOD GAS O2 SAT 99.9 % (95-98); ARTERIAL BLOOD GAS PCO2 29 mm/Hg (35-45); ARTERIAL BLOOD GAS PH 7.32 (7.35-7.45); ARTERIAL BLOOD GAS PO2 151 mm/Hg (80-100); ARTERIAL BLOOD GAS TCO2 15.8 mmol/L (22-28)
--- NOTE | 2017-12-04 06:31 | CP.PCM.PN ---
Subjective - Date & Time of Evaluation Date of Evaluation: 12/04/17 Time of Evaluation: 06:24 - Subjective Subjective: MR. Yoon was seen and examined at the bedside in ICU. He remains on mechanical ventilator on PRVC mode. He response to tactile stimuli with spontaneous movement of his bilateral upper extremities. His pupils has cataract. He has bilateral upper extremity hand mitten for patient safety. Currently receiving vasopressor and heparin drip. Repeat CT scan of the head yesterday showed right posterior approach SH[employer]TER shunt catheter. Moderate bilateral subdural hygromas. Stable appearance of the left frontal hygroma with small density favored to reflect vessel and granulation rather than blood products. There was no untoward events overnight. Objective - Vital Signs/Intake and Output Vital Signs (last 24 hours): Temp Pulse Resp BP Pulse Ox 98.9 F 91 H 24 103/57 L 99 12/04/17 04:00 12/04/17 04:00 12/04/17 04:00 12/04/17 04:00 12/04/17 04:00 Intake and Output: 12/03/17 12/04/17 18:59 06:59 Intake Total 5182.5 5383.6 Output Total 105 45 Balance 5077.5 5338.6 - Medications Medications: Current Medications Acetaminophen (Tylenol 650mg/20.3ml Solution Ud) 650 mg PO Q6 PRN PRN Reason: fever Last Admin: 12/03/17 08:25 Dose: 650 mg Acetylcysteine (Acetylcysteine 20%) 6 ml PO Q12H [facility] Stop: 12/04/17 23:46 Last Admin: 12/03/17 22:58 Dose: 6 ml Aspirin (Aspirin Chewable) 81 mg PO DAILY [facility] Last Admin: 12/03/17 09:39 Dose: 81 mg Bisacodyl (Dulcolax) 10 mg [place] Q24H PRN PRN Reason: Constipation Famotidine (Pepcid) 20 mg IVP DAILY [facility] Last Admin: 12/03/17 09:39 Dose: 20 mg Folic Acid (Folic Acid) 1 mg PO DAILY [facility] Last Admin: 12/03/17 09:39 Dose: 1 mg Hydrocortisone Sodium Succinate (Solu-Cortef) 100 mg IV Q8H [facility] Last Admin: 12/04/17 03:29 Dose: 100 mg Vancomycin/Sodium Chloride (Vancomycin 1 Gm/Ns 200 Ml) 1 gm in 200 mls @ 133 mls/hr IVPB Q24H [facility] Stop: 12/07/17 15:01 Last Admin: 12/03/17 14:48 Dose: 133 mls/hr Sodium Chloride (Sodium Chloride 0.9%) 1,000 mls @ 75 mls/hr IV .[id number] [facility] Last Admin: 12/03/17 22:59 Dose: Not Given Verapamil HCl 40 mg/ Sodium (Chloride) 100 mls @ 12.5 mls/hr IV .Q8H [facility]NA; 5 MG/ HR PRN Reason: Protocol Last Admin: 12/04/17 00:14 Dose: Not Given Aztreonam 2 gm/ Sodium (Chloride) 100 mls @ 100 mls/hr IVPB Q12H [facility] Last Admin: 12/04/17 01:03 Dose: 100 mls/hr Doxycycline Hyclate 100 mg/ (Sodium Chloride) 100 mls @ 100 mls/hr IVPB Q12H [facility] Last Admin: 12/04/17 00:10 Dose: 100 mls/hr Phenylephrine HCl 90 mg/ (Sodium Chloride) 259 mls @ 3.45 mls/hr IV .Q24H PRN; Protocol; 20 MCG/MIN PRN Reason: TITRATE PER MD ORDER Last Titration: 12/04/17 02:00 Dose: 77.02 mcg/min, 13.3 mls/hr Heparin Sodium/Sodium Chloride (Heparin 15822 Units/250ml 1/2 Normal Saline) 25 ,000 units in 250 mls @ 7.484 mls/hr IV .Q24H PRN; Protocol; 11 UNITS/KG/HR PRN Reason: PROTOCOL Last Admin: 12/04/17 00:00 Dose: 11 units/kg/hr, 7.484 mls/hr Insulin Aspart (Novolog) 0 unit SC Q6 ANA PRN Reason: Protocol Last Admin: 12/04/17 05:55 Dose: 2 unit Latanoprost (Xalatan Opht) 0 ml OD HS [facility] Last Admin: 12/03/17 21:16 Dose: 2.5 ml Rosuvastatin Calcium (Crestor) 5 mg PO HS [facility] Last Admin: 12/03/17 21:19 Dose: 5 mg Sucralfate (Carafate Oral Susp) 1 gm PO TID [facility] Last Admin: 12/03/17 18:22 Dose: 1 gm Thiamine HCl (Vitamin B1 Tab) 100 mg GT DAILY [facility] Last Admin: 12/03/17 09:39 Dose: 100 mg - Labs Labs: 12/03/17 06:23 12/03/17 06:23 PT 12.9 SECONDS (9.7-12.2) H 12/01/17 13:39 INR 1.15 (0.92-1.08) H 12/01/17 13:39 APTT 40 SECONDS (21-34) H 12/03/17 22:48 - Constitutional Appears: No Acute Distress - Head Exam Head Exam: NORMAL INSPECTION - Neurological Exam Neuro motor strength exam: Left Upper Extremity: 3, Right Upper Extremity: 3, Left Lower Extremity: 0, Right Lower Extremity: 0 Additional comments: Moves upper extremities spontaneously with no movement of the lower extremities. Assessment and Plan (1) Sepsis Assessment & Plan: Case discussed with Dr. Mosher, continue all current medical regimen. Pending EEG. Please refer to primary physician regarding electrolytes imbalances. Status: Acute
[2017-12-04 06:52] LABS: BASO % 0.1 % (0.0-2.0); HEMOGLOBIN 7.9 g/dL (12.0-18.0); LYMPH # 0.3 K/uL (1.0-4.3); LYMPH % 1.5 % (20.0-40.0); MEAN CELL VOLUME 82.2 fL (80.0-94.0); MEAN CORPUSCULAR HEMOGLOBIN 25.8 pg (27.0-31.0); MEAN CORPUSCULAR HGB CONC 31.5 g/dL (33.0-37.0); MEAN PLATELET VOLUME 11.2 fL (7.2-11.7); MONO # 0.5 K/uL (0.0-0.8); MONO % 2.9 % (0.0-10.0); NEUT # 17.3 K/uL (1.8-7.0); NEUT % 95.5 % (50.0-75.0); PLATELET COUNT 198 K/uL (130-400); RBC 3.04 Mil/uL (4.40-5.90); WHITE BLOOD COUNT 18.1 K/uL (4.8-10.8)
[2017-12-04 07:03] LABS: ALB/GLOB RATIO 0.9 (1.0-2.1); ALBUMIN 2.3 g/dL (3.5-5.0); CALCIUM 6.6 mg/dl (8.6-10.4); MAGNESIUM 1.6 mg/dL (1.6-2.3)
[2017-12-04 07:20] LABS: TROPONIN I 0.205 ng/mL (0.00-0.120)
--- NOTE | 2017-12-04 08:47 | RAD ---
Chest x-ray single frontal view History: Pneumonia. Comparison: 12/03/2017 Findings: Lines and tubes in stable position. Prominent consolidative changes in the right upper to mid lung zone and in the right paratracheal region. Small bilateral pleural effusions with bibasilar airspace consolidative changes; left greater than right. Right hilar prominence. Calcification at the aortic knob. Mild cardiomegaly. Degenerative changes in the spine and shoulders. Impression: Lines and tubes in stable position. Prominent consolidative changes in the right upper to mid lung zone and in the right paratracheal region. Small bilateral pleural effusions with bibasilar airspace consolidative changes; left greater than right. Right hilar prominence. Calcification at the aortic knob. Mild cardiomegaly.
[2017-12-04 09:16] LABS: BANDS 1 % (0-2); LYMPHOCYTE 1 % (20-40); MONOCYTE 3 % (0-10); NEUTROPHIL 95 % (50-75); PLATELET ESTIMATE NORMAL (NORMAL); TOTAL CELLS COUNTED 100
[2017-12-04 09:17] LABS: ANISOCYTOSIS SLIGHT; BURR CELLS SLIGHT; HYPOCHROMIC SLIGHT; OVALOCYTES SLIGHT; POIKILOCYTOSIS SLIGHT
[2017-12-04 09:18] LABS: LARGE PLATELETS PRESENT
[2017-12-04] MEDS: Sodium Bicarbonate 8.4% 150 MEQ in Dextrose 5% In Water 1,000 ML IV SCH ×2 (09:27→22:29)
--- NOTE | 2017-12-04 10:21 | CP.PCM.PN ---
Subjective - Date & Time of Evaluation Date of Evaluation: 12/04/17 Time of Evaluation: 07:00 - Subjective Subjective: vented confused nad IV antibiotics renewed all cultures reviewed CT findings noted Objective - Vital Signs/Intake and Output Vital Signs (last 24 hours): Temp Pulse Resp BP Pulse Ox 98.9 F 89 18 101/58 L 100 12/04/17 04:00 12/04/17 07:00 12/04/17 07:00 12/04/17 07:00 12/04/17 07:00 Intake and Output: 12/04/17 12/04/17 06:59 18:59 Intake Total 5769.4 129.2 Output Total 70 5 Balance 5699.4 124.2 - Medications Medications: Current Medications Acetaminophen (Tylenol 650mg/20.3ml Solution Ud) 650 mg PO Q6 PRN PRN Reason: fever Last Admin: 12/03/17 08:25 Dose: 650 mg Acetylcysteine (Acetylcysteine 20%) 6 ml PO Q12H [facility] Stop: 12/04/17 23:46 Last Admin: 12/03/17 22:58 Dose: 6 ml Aspirin (Aspirin Chewable) 81 mg PO DAILY [facility] Last Admin: 12/03/17 09:39 Dose: 81 mg Bisacodyl (Dulcolax) 10 mg IN Q24H PRN PRN Reason: Constipation Famotidine (Pepcid) 20 mg IVP DAILY [facility] Last Admin: 12/03/17 09:39 Dose: 20 mg Folic Acid (Folic Acid) 1 mg PO DAILY [facility] Last Admin: 12/03/17 09:39 Dose: 1 mg Hydrocortisone Sodium Succinate (Solu-Cortef) 100 mg IV Q8H [facility] Last Admin: 12/04/17 03:29 Dose: 100 mg Vancomycin/Sodium Chloride (Vancomycin 1 Gm/Ns 200 Ml) 1 gm in 200 mls @ 133 mls/hr IVPB Q24H [facility] Stop: 12/07/17 15:01 Last Admin: 12/03/17 14:48 Dose: 133 mls/hr Sodium Chloride (Sodium Chloride 0.9%) 1,000 mls @ 75 mls/hr IV .[id number] [facility] Last Admin: 12/03/17 22:59 Dose: Not Given Verapamil HCl 40 mg/ Sodium (Chloride) 100 mls @ 12.5 mls/hr IV .Q8H [facility]; 5 MG/ HR PRN Reason: Protocol Last Admin: 12/04/17 00:14 Dose: Not Given Aztreonam 2 gm/ Sodium (Chloride) 100 mls @ 100 mls/hr IVPB Q12H [facility] Last Admin: 12/04/17 01:03 Dose: 100 mls/hr Doxycycline Hyclate 100 mg/ (Sodium Chloride) 100 mls @ 100 mls/hr IVPB Q12H [facility] Last Admin: 12/04/17 00:10 Dose: 100 mls/hr Phenylephrine HCl 90 mg/ (Sodium Chloride) 259 mls @ 3.45 mls/hr IV .Q24H PRN; Protocol; 20 MCG/MIN PRN Reason: TITRATE PER MD ORDER Last Titration: 12/04/17 06:00 Dose: 67.76 mcg/min, 11.69 mls/hr Sodium Bicarbonate 150 meq/ (Dextrose) 1,150 mls @ 75 mls/hr IV .[id number] [facility] Last Admin: 12/04/17 09:27 Dose: 75 mls/hr Insulin Aspart (Novolog) 0 unit SC Q6 ANA PRN Reason: Protocol Last Admin: 12/04/17 05:55 Dose: 2 unit Latanoprost (Xalatan Opht) 0 ml OD HS [facility] Last Admin: 12/03/17 21:16 Dose: 2.5 ml Rosuvastatin Calcium (Crestor) 5 mg PO HS [facility] Last Admin: 12/03/17 21:19 Dose: 5 mg Sucralfate (Carafate Oral Susp) 1 gm PO TID [facility] Last Admin: 12/03/17 18:22 Dose: 1 gm Thiamine HCl (Vitamin B1 Tab) 100 mg GT DAILY [facility] Last Admin: 12/03/17 09:39 Dose: 100 mg - Labs Labs: 12/04/17 06:38 12/04/17 06:37 PT 12.9 SECONDS (9.7-12.2) H 12/01/17 13:39 INR 1.15 (0.92-1.08) H 12/01/17 13:39 APTT 73 SECONDS (21-34) H D 12/04/17 06:38 - Constitutional Appears: Confused, Cachectic, Chronically Ill - Head Exam Head Exam: NORMOCEPHALIC - Eye Exam Eye Exam: absent: Scleral icterus - ENT Exam ENT Exam: Mucous Membranes Dry - Neck Exam Neck Exam: absent: Lymphadenopathy - Respiratory Exam Respiratory Exam: Decreased Breath Sounds - Cardiovascular Exam Cardiovascular Exam: REGULAR RHYTHM - GI/Abdominal Exam GI & Abdominal Exam: Distended, Soft - Rectal Exam Rectal Exam: Deferred - Exam Exam: NORMAL INSPECTION - Extremities Exam Extremities Exam: Pedal Edema - Back Exam Back Exam: absent: CVA tenderness (L), CVA tenderness (R), paraspinal tenderness - Neurological Exam Neurological Exam: Altered - Psychiatric Exam Psychiatric exam: Depressed - Skin Skin Exam: Dry Assessment and Plan (1) Respiratory failure Status: Acute (2) Pneumonia Status: Acute (3) Bandemia Status: Acute (4) Fever Status: Acute (5) Lethargy Status: Acute (6) Sepsis Status: Acute (7) Respiratory failure Status: Acute (8) Pneumonia Status: Acute - Assessment and Plan (Free Text) Assessment: Repeat CT scan of the head yesterday showed right posterior approach [employer] shunt catheter. Moderate bilateral subdural hygromas. Stable appearance of the left frontal hygroma with small density favored to reflect vessel and granulation rather than blood products. Plan: MRSA sepsis / pneumonia / resp failure poor prognosis
--- NOTE | 2017-12-04 10:32 | VASCLAB ---
PROCEDURE: Lower Extremity Venous Duplex Exam. HISTORY: dvt Acute deep venous thrombosis b/l, Resp failure, Sepsis/hypoxia PRIORS: None. TECHNIQUE: Bilateral common femoral, femoral, popliteal and posterior tibial, peroneal and great saphenous veins were evaluated. Flow was assessed with color Doppler, compressibility, assessment of phasic flow and augmentation response. Report prepared by Payam Jain, T FINDINGS: RIGHT: 1. Common Femoral Vein: 1.1. Compressibility - Partial: Thrombus - Acute : Flow - Reduced : Augmentation -Reduced. 2. Femoral Vein: 2.1. Compressibility - Fully compressible: Thrombus - None : Flow - Reduced : Augmentation -Reduced. 3. Popliteal Vein: 3.1. Compressibility - Partial: Thrombus - Acute : Flow - Reduced : Augmentation -Reduced. 4. Posterior Tibial Vein: 4.1. Compressibility - Incompressible: Thrombus - Acute. 5. Peroneal Vein: 5.1. Compressibility - Incompressible: Thrombus - Acute. 6. Great Saphenous Vein: 6.1. Compressibility - Fully compressible: Thrombus - None: Flow - Phasic. LEFT: 1. Common Femoral Vein: 1.1. Compressibility - Fully compressible: Thrombus - None: Flow - Phasic: Augmentation -Normal. 2. Femoral Vein: 2.1. Compressibility - Fully compressible: Thrombus - None: Flow - Phasic: Augmentation -Normal. 3. Popliteal Vein: 3.1. Compressibility - Fully compressible: Thrombus - None : Flow - Phasic: Augmentation -Normal. 4. Posterior Tibial Vein: 4.1. Compressibility - Incompressible: Thrombus - Acute. 5. Peroneal Vein: 5.1. Compressibility - Incompressible: Thrombus - Acute. 6. Great Saphenous Vein: 6.1. Compressibility - Fully compressible: Thrombus - None: Flow - Phasic. OTHER FINDINGS: Right: The gastrocnemius vein were occluded with echolucent THROMBUS. Left: The gastrocnemius vein were occluded with echolucent THROMBUS. IMPRESSION: Right: There was evidence of acute deep venous thrombosis. There was no Superficial vein thrombosis of the right lower extremity. Left: There was evidence of acute infrapopliteal deep venous thrombosis. There was no Superficial vein thrombosis of the left lower extremity.
--- NOTE | 2017-12-04 10:32 | VASCLAB ---
PROCEDURE: Upper Extremity Venous Duplex Exam HISTORY: dvt B/L UE edema PRIORS: None. TECHNIQUE: Bilateral upper extremity, internal jugular, subclavian, axillary, brachial, ulnar, radial, basilic and upper cephalic veins were evaluated. Flow was assessed with color Doppler, compressibility, assessment of phasic flow and augmentation response. Report prepared by Payam Jain, T FINDINGS: RIGHT: 1. Internal Jugular: 1.1. Compressibility - Fully compressible: Thrombus - None : Flow - Phasic: Augmentation -Normal. 2. Subclavian: 2.1. Compressibility - Fully compressible: Thrombus - None : Flow - Phasic: Augmentation -Normal. 3. Axillary: 3.1. Compressibility - Fully compressible: Thrombus - None : Flow - Phasic: Augmentation -Normal. 4. Brachial: 4.1. Compressibility - Fully compressible: Thrombus - None: Flow - Phasic: Augmentation -Normal. 5. Ulnar: 5.1. Compressibility - Fully compressible: Thrombus - None. 6. Radial: 6.1. Compressibility - Fully compressible: Thrombus - None. 7. Cephalic: 7.1. Compressibility - Incompressible: Thrombus - Acute. 8. Basilic: 8.1. Compressibility - Incompressible: Thrombus - Acute. LEFT: 1. Internal Jugular: 1.1. Compressibility - Fully compressible: Thrombus - None : Flow - Phasic: Augmentation -Normal. 2. Subclavian: 2.1. Compressibility - Fully compressible: Thrombus - None : Flow - Phasic: Augmentation -Normal. 3. Axillary: 3.1. Compressibility - Fully compressible: Thrombus - None : Flow - Phasic: Augmentation -Normal. 4. Brachial: 4.1. Compressibility - Fully compressible: Thrombus - None: Flow - Phasic: Augmentation -Normal. 5. Ulnar: 5.1. Compressibility - Fully compressible: Thrombus - None. 6. Radial: 6.1. Compressibility - Fully compressible: Thrombus - None. 7. Cephalic: 7.1. Compressibility - Fully compressible: Thrombus - None. 8. Basilic: 8.1. Compressibility - Fully compressible: Thrombus - None. OTHER FINDINGS: Right: There was severe subcutaneous edema in the forearm territory. Left: None. IMPRESSION: Right: The cephalic and basilic vein in the upper arm territory were non compressible with echolucent THROMBUS. No evidence of deep vein thrombosis, however there was evidence of superficial acute thrombophlebitis of the right upper extremity. Left: No evidence of deep or superficial vein thrombosis of the left upper extremity.
[2017-12-04] MEDS: Sucralfate 1 gm/10 ml Oral Susp UD PO SCH ×3 (10:43→17:57)
--- NOTE | 2017-12-04 11:13 | CARD ---
APPROVED REPORT EKG Measurement Heart [id number] <Conclusion> Poor data quality, interpretation may be adversely affected Sinus tachycardia Nonspecific ST and T wave abnormality Abnormal ECG
--- NOTE | 2017-12-04 11:25 | CP.CCUPN ---
CCU Subjective - Physician Review Events Since Last Encounter (Free Text): 12/04/17 11:26 Patient seen and examined at [facility]. Patient only made 70ml of Urine over the last anesthesiologist physician. Patient also has fecal incontinence Subjective (Free Text): 12/04/17 11:39 Patient seen and examined at bedside this A.M. Per nursing no acute events overnight. Patient scheduled for HD this morning. Critical Care Time Spent (in minutes): 45 CCU Objective - Vital Signs / Intake & Output Intake and Output (Last 8hrs): Intake & Output 12/03/17 12/04/17 12/04/17 22:59 06:59 14:59 Intake Total 1836.4 5051.0 129.2 Output Total 45 55 5 Balance 1791.4 4996.0 124.2 Intake: IV 262 0 Intake, IV Amount 1374.4 4831.0 94.2 R femoral medial sideport 50.0 4012.5 R femoral proximal side 24.4 58.6 7.5 port Right Distal Port Femoral 425 Right Medial Port Femoral 300 650 75 Right Proximal Port 575 109.9 11.7 Femoral Tube Feeding 100 220 35 Other 100 Output: Urine 45 55 5 Urethral (Morgan) 45 55 5 Other: # Bowel Movements 0 0 0 - Physical Exam Head: Positive for: Atraumatic, Normocephalic Pupils: Positive for: PERRL Cardiovascular: Positive for: Normal S1, S2, Tachycardic Abdomen: Positive for: Normal Bowel Sounds. Negative for: Peritoneal Signs Upper Extremity: Positive for: Normal Inspection Lower Extremity: Positive for: Normal Inspection Neurological: Negative for: GCS=15, CN II-XII Intact - Medications Active Medications: Active Medications Generic Name Dose Route Start Last Admin Trade Name Freq PRN Reason Stop Dose Admin Acetaminophen 650 mg 12/02/17 07:49 12/03/17 08:25 Tylenol 650mg/20.3ml Solution Ud PO 650 mg Q6 PRN Administration fever Acetylcysteine 6 ml 12/03/17 11:45 12/03/17 22:58 Acetylcysteine 20% PO 12/04/17 23:46 6 ml Q12H ANA Administration Aspirin 81 mg 12/02/17 10:00 12/03/17 09:39 Aspirin Chewable PO 81 mg DAILY ANA Administration Bisacodyl 10 mg 12/03/17 11:57 Dulcolax [place] Q24H PRN Constipation Famotidine 20 mg 12/02/17 16:15 12/04/17 10:42 Pepcid IVP Not Given DAILY ANA Folic Acid 1 mg 12/02/17 10:00 12/04/17 10:41 Folic Acid PO 1 mg DAILY ANA Administration Heparin Sodium (Porcine) 5,000 units 12/04/17 14:00 Heparin SC Q8 ANA Hydrocortisone Sodium Succinate 100 mg 12/03/17 11:45 12/04/17 03:29 Solu-Cortef IV 100 mg Q8H ANA Administration Vancomycin/Sodium Chloride 1 gm in 200 mls @ 133 mls/hr 12/02/17 15:00 14:48 Vancomycin 1 Gm/Ns 200 Ml IVPB 12/07/17 15:01 133 mls/hr Q24H ANA Administration Sodium Chloride 1,000 mls @ 75 mls/hr 12/02/17 07:30 12/03/17 22:59 Sodium Chloride 0.9% IV Not Given .[id number] ANA Aztreonam 2 gm/ Sodium 100 mls @ 100 mls/hr 12/03/17 13:00 12/04/17 01:03 Chloride IVPB 100 mls/hr Q12H ANA Administration Doxycycline Hyclate 100 mg/ 100 mls @ 100 mls/hr 12/03/17 12:30 12/04/17 00: 10 Sodium Chloride IVPB 100 mls/hr Q12H ANA Administration Phenylephrine HCl 90 mg/ 259 mls @ 3.45 mls/hr 12/03/17 21:00 12/04/17 06:00 Sodium Chloride IV 67.76 mcg/min .Q24H PRN 11.69 mls/hr TITRATE PER MD ORDER Titration Protocol 20 MCG/MIN Sodium Bicarbonate 150 meq/ 1,150 mls @ 75 mls/hr 12/04/17 07:00 12/04/17 09: 27 Dextrose IV 75 mls/hr .[id number] ANA Administration Insulin Aspart 0 unit 12/04/17 00:00 12/04/17 05:55 Novolog SC 2 unit Q6 ANA Administration Protocol Latanoprost 0 ml 12/01/17 23:45 12/03/17 21:16 Xalatan Opht OD 2.5 ml HS ANA Administration Pantoprazole Sodium 40 mg 02/12/18 10:30 12/04/17 10:41 Protonix Inj IVP 40 mg DAILY ANA Administration Rosuvastatin Calcium 5 mg 12/01/17 22:00 12/03/17 21:19 Crestor PO 5 mg HS ANA Administration Sucralfate 1 gm 12/03/17 18:00 12/04/17 10:43 Carafate Oral Susp PO 1 gm TID ANA Administration Thiamine HCl 100 mg 12/02/17 10:00 12/04/17 10:43 Vitamin B1 Tab GT 100 mg DAILY ANA Administration - Patient Studies Lab Studies: Microbiology Studies 12/02/17 15:20 Gram Stain - Final Cerebral Spinal Fluid CSF Culture - Preliminary NO GROWTH AFTER 2 DAYS 12/01/17 10:50 S.aureus & Coag-Neg Staph PNA FISH - Final Blood Blood Culture - Final Methicillin Resistant S Aureus Gram Stain - Final 12/02/17 15:17 Gram Stain - Final Trachasp Sputum Culture - Final Methicillin Resistant S Aureus 12/01/17 Unknown Gram Stain - Final Trachasp Sputum Culture - Final Methicillin Resistant S Aureus 12/01/17 Unknown MRSA Culture (Admit) - Final Naris MRSA DETECTED 12/01/17 11:25 Blood Culture - Preliminary Blood Gram Positive Cocci Gram Stain - Preliminary Lab Studies 12/04/17 12/04/17 12/04/17 Range/Units 06:38 06:38 06:37 WBC 18.1 H (4.8-10.8) K/uL RBC 3.04 L (4.40-5.90) Mil/uL Hgb 7.9 L (12.0-18.0) g/dL Hct 25.0 L (35.0-51.0) % MCV 82.2 (80.0-94.0) fL MCH 25.8 L (27.0-31.0) pg MCHC 31.5 L (33.0-37.0) g/dL RDW 17.0 H (11.5-14.5) % Plt Count 198 (130-400) K/uL MPV 11.2 (7.2-11.7) fL Neut % (Auto) 95.5 H (50.0-75.0) % Lymph % (Auto) 1.5 L (20.0-40.0) % Taney % (Auto) 2.9 (0.0-10.0) % Eos % (Auto) 0.0 (0.0-4.0) % Baso % (Auto) 0.1 (0.0-2.0) % Neut # (Auto) 17.3 H (1.8-7.0) K/uL Lymph # (Auto) 0.3 L (1.0-4.3) K/uL Taney # (Auto) 0.5 (0.0-0.8) K/uL Eos # (Auto) 0.0 (0.0-0.7) K/uL Baso # (Auto) 0.0 (0.0-0.2) K/uL Neutrophils % (Manual) 95 H (50-75) % Band Neutrophils % 1 (0-2) % Lymphocytes % (Manual) 1 L (20-40) % Monocytes % (Manual) 3 (0-10) % Platelet Estimate Normal (NORMAL) Large Platelets Present Hypochromasia (manual) Slight Poikilocytosis (manual Slight Anisocytosis (manual) Slight Ovalocytes Slight Danni Cells Slight APTT 73 H D (21-34) SECONDS Puncture Site pCO2 (35-45) mm/Hg pO2 (80-100) mm/Hg HCO3 (21-28) mmol/L ABG pH (7.35-7.45) ABG Total CO2 (22-28) mmol/L ABG O2 Saturation (95-98) % ABG Base Excess (-2.0-3.0) mmol/L ABG Hemoglobin (11.7-17.4) g/dL ABG Carboxyhemoglobin (0.5-1.5) % POC ABG HHb (Measured) (0.0-5.0) % ABG Methemoglobin (0.0-3.0) % Parviz Test A-a O2 Difference mm/Hg Respiratory Index Hgb O2 Saturation (95.0-98.0) % Vent Mode Mechanical Rate FiO2 % Tidal Volume PEEP Sodium 142 (132-148) mmol/L Potassium 3.9 (3.6-5.2) mmol/L Chloride 114 H (98-107) mmol/L Carbon Dioxide 15 L (22-30) mmol/L Anion Gap 17 (10-20) BUN 61 H (9-20) mg/dL Creatinine 2.5 H (0.8-1.5) mg/dL Est GFR ( Amer) 30 Est GFR (Non-Af Amer) 24 POC Glucose (mg/dL) (65-110) mg/dL Random Glucose 159 H (75-110) mg/dL Calcium 6.6 L (8.6-10.4) mg/dl Phosphorus 4.9 H (2.5-4.5) mg/dL Magnesium 1.6 (1.6-2.3) mg/dL Total Bilirubin 0.5 (0.2-1.3) mg/dL AST 18 (17-59) U/L ALT 41 (21-72) U/L Alkaline Phosphatase 82 (38-126) U/L Troponin I 0.2050 H* (0.00-0.120) ng/mL NT-Pro-B Natriuret Pep 7370 H (0-900) pg/mL Total Protein 5.0 L (6.3-8.3) g/dL Albumin 2.3 L (3.5-5.0) g/dL Globulin 2.7 (2.2-3.9) gm/dL Albumin/Globulin Ratio 0.9 L (1.0-2.1) CSF VDRL (Nonreactive) Vancomycin Trough (5.0-10.0) ug/mL 12/04/17 12/04/17 12/04/17 Range/Units 06:37 05:53 04:25 WBC (4.8-10.8) K/uL RBC (4.40-5.90) Mil/uL Hgb (12.0-18.0) g/dL Hct (35.0-51.0) % MCV (80.0-94.0) fL MCH (27.0-31.0) pg MCHC (33.0-37.0) g/dL RDW (11.5-14.5) % Plt Count (130-400) K/uL MPV (7.2-11.7) fL Neut % (Auto) (50.0-75.0) % Lymph % (Auto) (20.0-40.0) % Taney % (Auto) (0.0-10.0) % Eos % (Auto) (0.0-4.0) % Baso % (Auto) (0.0-2.0) % Neut # (Auto) (1.8-7.0) K/uL Lymph # (Auto) (1.0-4.3) K/uL Taney # (Auto) (0.0-0.8) K/uL Eos # (Auto) (0.0-0.7) K/uL Baso # (Auto) (0.0-0.2) K/uL Neutrophils % (Manual) (50-75) % Band Neutrophils % (0-2) % Lymphocytes % (Manual) (20-40) % Monocytes % (Manual) (0-10) % Platelet Estimate (NORMAL) Large Platelets Hypochromasia (manual) Poikilocytosis (manual Anisocytosis (manual) Ovalocytes [place] Cells APTT (21-34) SECONDS Puncture Site Lb pCO2 29 L (35-45) mm/Hg pO2 151 H (80-100) mm/Hg HCO3 17.1 L (21-28) mmol/L ABG pH 7.32 L (7.35-7.45) ABG Total CO2 15.8 L (22-28) mmol/L ABG O2 Saturation 99.9 H (95-98) % ABG Base Excess -10.1 L (-2.0-3.0) mmol/L ABG Hemoglobin 8.3 L (11.7-17.4) g/dL ABG Carboxyhemoglobin 1.4 (0.5-1.5) % POC ABG HHb (Measured) 0.1 (0.0-5.0) % ABG Methemoglobin 1.0 (0.0-3.0) % Parviz Test Na A-a O2 Difference 169.0 mm/Hg Respiratory Index 1.1 Hgb O2 Saturation 97.5 (95.0-98.0) % Vent Mode Prvc Mechanical Rate 16 FiO2 50.0 % Tidal Volume 450 PEEP 5 Sodium (132-148) mmol/L Potassium (3.6-5.2) mmol/L Chloride (98-107) mmol/L Carbon Dioxide (22-30) mmol/L Anion Gap (10-20) BUN (9-20) mg/dL Creatinine (0.8-1.5) mg/dL Est GFR ( Amer) Est GFR (Non-Af Amer) POC Glucose (mg/dL) 203 H (65-110) mg/dL Random Glucose (75-110) mg/dL Calcium (8.6-10.4) mg/dl Phosphorus (2.5-4.5) mg/dL Magnesium (1.6-2.3) mg/dL Total Bilirubin (0.2-1.3) mg/dL AST (17-59) U/L ALT (21-72) U/L Alkaline Phosphatase (38-126) U/L Troponin I (0.00-0.120) ng/mL NT-Pro-B Natriuret Pep (0-900) pg/mL Total Protein (6.3-8.3) g/dL Albumin (3.5-5.0) g/dL Globulin (2.2-3.9) gm/dL Albumin/Globulin Ratio (1.0-2.1) CSF VDRL (Nonreactive) Vancomycin Trough 16.8 H (5.0-10.0) ug/mL 12/04/17 12/03/17 12/03/17 Range/Units 00:21 22:48 17:44 WBC (4.8-10.8) K/uL RBC (4.40-5.90) Mil/uL Hgb (12.0-18.0) g/dL Hct (35.0-51.0) % MCV (80.0-94.0) fL MCH (27.0-31.0) pg MCHC (33.0-37.0) g/dL RDW (11.5-14.5) % Plt Count (130-400) K/uL MPV (7.2-11.7) fL Neut % (Auto) (50.0-75.0) % Lymph % (Auto) (20.0-40.0) % Taney % (Auto) (0.0-10.0) % Eos % (Auto) (0.0-4.0) % Baso % (Auto) (0.0-2.0) % Neut # (Auto) (1.8-7.0) K/uL Lymph # (Auto) (1.0-4.3) K/uL Taney # (Auto) (0.0-0.8) K/uL Eos # (Auto) (0.0-0.7) K/uL Baso # (Auto) (0.0-0.2) K/uL Neutrophils % (Manual) (50-75) % Band Neutrophils % (0-2) % Lymphocytes % (Manual) (20-40) % Monocytes % (Manual) (0-10) % Platelet Estimate (NORMAL) Large Platelets Hypochromasia (manual) Poikilocytosis (manual Anisocytosis (manual) Ovalocytes Danni Cells APTT 40 H (21-34) SECONDS Puncture Site pCO2 (35-45) mm/Hg pO2 (80-100) mm/Hg HCO3 (21-28) mmol/L ABG pH (7.35-7.45) ABG Total CO2 (22-28) mmol/L ABG O2 Saturation (95-98) % ABG Base Excess (-2.0-3.0) mmol/L ABG Hemoglobin (11.7-17.4) g/dL ABG Carboxyhemoglobin (0.5-1.5) % POC ABG HHb (Measured) (0.0-5.0) % ABG Methemoglobin (0.0-3.0) % Parviz Test A-a O2 Difference mm/Hg Respiratory Index Hgb O2 Saturation (95.0-98.0) % Vent Mode Mechanical Rate FiO2 % Tidal Volume PEEP Sodium (132-148) mmol/L Potassium (3.6-5.2) mmol/L Chloride (98-107) mmol/L Carbon Dioxide (22-30) mmol/L Anion Gap (10-20) BUN (9-20) mg/dL Creatinine (0.8-1.5) mg/dL Est GFR ( Amer) Est GFR (Non-Af Amer) POC Glucose (mg/dL) 157 H 173 H (65-110) mg/dL Random Glucose (75-110) mg/dL Calcium (8.6-10.4) mg/dl Phosphorus (2.5-4.5) mg/dL Magnesium (1.6-2.3) mg/dL Total Bilirubin (0.2-1.3) mg/dL AST (17-59) U/L ALT (21-72) U/L Alkaline Phosphatase (38-126) U/L Troponin I (0.00-0.120) ng/mL NT-Pro-B Natriuret Pep (0-900) pg/mL Total Protein (6.3-8.3) g/dL Albumin (3.5-5.0) g/dL Globulin (2.2-3.9) gm/dL Albumin/Globulin Ratio (1.0-2.1) CSF VDRL (Nonreactive) Vancomycin Trough (5.0-10.0) ug/mL 12/03/17 12/03/17 12/03/17 Range/Units 12:33 12:28 12:05 WBC (4.8-10.8) K/uL RBC (4.40-5.90) Mil/uL Hgb (12.0-18.0) g/dL Hct (35.0-51.0) % MCV (80.0-94.0) fL MCH (27.0-31.0) pg MCHC (33.0-37.0) g/dL RDW (11.5-14.5) % Plt Count (130-400) K/uL MPV (7.2-11.7) fL Neut % (Auto) (50.0-75.0) % Lymph % (Auto) (20.0-40.0) % [place]aney % (Auto) (0.0-10.0) % Eos % (Auto) (0.0-4.0) % Baso % (Auto) (0.0-2.0) % Neut # (Auto) (1.8-7.0) K/uL Lymph # (Auto) (1.0-4.3) K/uL Taney # (Auto) (0.0-0.8) K/uL Eos # (Auto) (0.0-0.7) K/uL Baso # (Auto) (0.0-0.2) K/uL Neutrophils % (Manual) (50-75) % Band Neutrophils % (0-2) % Lymphocytes % (Manual) (20-40) % Monocytes % (Manual) (0-10) % Platelet Estimate (NORMAL) Large Platelets Hypochromasia (manual) Poikilocytosis (manual Anisocytosis (manual) Ovalocytes [place] Cells APTT 38 H D (21-34) SECONDS Puncture Site pCO2 (35-45) mm/Hg pO2 (80-100) mm/Hg HCO3 (21-28) mmol/L ABG pH (7.35-7.45) ABG Total CO2 (22-28) mmol/L ABG O2 Saturation (95-98) % ABG Base Excess (-2.0-3.0) mmol/L ABG Hemoglobin (11.7-17.4) g/dL ABG Carboxyhemoglobin (0.5-1.5) % POC ABG HHb (Measured) (0.0-5.0) % ABG Methemoglobin (0.0-3.0) % Parviz Test A-a O2 Difference mm/Hg Respiratory Index Hgb O2 Saturation (95.0-98.0) % Vent Mode Mechanical Rate FiO2 % Tidal Volume PEEP Sodium (132-148) mmol/L Potassium (3.6-5.2) mmol/L Chloride (98-107) mmol/L Carbon Dioxide (22-30) mmol/L Anion Gap (10-20) BUN (9-20) mg/dL Creatinine (0.8-1.5) mg/dL Est GFR ( Amer) Est GFR (Non-Af Amer) POC Glucose (mg/dL) 160 H (65-110) mg/dL Random Glucose (75-110) mg/dL Calcium (8.6-10.4) mg/dl Phosphorus (2.5-4.5) mg/dL Magnesium (1.6-2.3) mg/dL Total Bilirubin (0.2-1.3) mg/dL AST (17-59) U/L ALT (21-72) U/L Alkaline Phosphatase (38-126) U/L Troponin I (0.00-0.120) ng/mL NT-Pro-B Natriuret Pep (0-900) pg/mL Total Protein (6.3-8.3) g/dL Albumin (3.5-5.0) g/dL Globulin (2.2-3.9) gm/dL Albumin/Globulin Ratio (1.0-2.1) CSF VDRL (Nonreactive) Vancomycin Trough 12.2 H (5.0-10.0) ug/mL 12/02/17 Range/Units 15:32 WBC (4.8-10.8) K/uL RBC (4.40-5.90) Mil/uL Hgb (12.0-18.0) g/dL Hct (35.0-51.0) % MCV (80.0-94.0) fL MCH (27.0-31.0) pg MCHC (33.0-37.0) g/dL RDW (11.5-14.5) % Plt Count (130-400) K/uL MPV (7.2-11.7) fL Neut % (Auto) (50.0-75.0) % Lymph % (Auto) (20.0-40.0) % Taney % (Auto) (0.0-10.0) % Eos % (Auto) (0.0-4.0) % Baso % (Auto) (0.0-2.0) % Neut # (Auto) (1.8-7.0) K/uL Lymph # (Auto) (1.0-4.3) K/uL Taney # (Auto) (0.0-0.8) K/uL Eos # (Auto) (0.0-0.7) K/uL Baso # (Auto) (0.0-0.2) K/uL Neutrophils % (Manual) (50-75) % Band Neutrophils % (0-2) % Lymphocytes % (Manual) (20-40) % Monocytes % (Manual) (0-10) % Platelet Estimate (NORMAL) Large Platelets Hypochromasia (manual) Poikilocytosis (manual Anisocytosis (manual) Ovalocytes Danni Cells APTT (21-34) SECONDS Puncture Site pCO2 (35-45) mm/Hg pO2 (80-100) mm/Hg HCO3 (21-28) mmol/L ABG pH (7.35-7.45) ABG Total CO2 (22-28) mmol/L ABG O2 Saturation (95-98) % ABG Base Excess (-2.0-3.0) mmol/L ABG Hemoglobin (11.7-17.4) g/dL ABG Carboxyhemoglobin (0.5-1.5) % POC ABG HHb (Measured) (0.0-5.0) % ABG Methemoglobin (0.0-3.0) % Parviz Test A-a O2 Difference mm/Hg Respiratory Index Hgb O2 Saturation (95.0-98.0) % Vent Mode Mechanical Rate FiO2 % Tidal Volume PEEP Sodium (132-148) mmol/L Potassium (3.6-5.2) mmol/L Chloride (98-107) mmol/L Carbon Dioxide (22-30) mmol/L Anion Gap (10-20) BUN (9-20) mg/dL Creatinine (0.8-1.5) mg/dL Est GFR ( Amer) Est GFR (Non-Af Amer) POC Glucose (mg/dL) (65-110) mg/dL Random Glucose (75-110) mg/dL Calcium (8.6-10.4) mg/dl Phosphorus (2.5-4.5) mg/dL Magnesium (1.6-2.3) mg/dL Total Bilirubin (0.2-1.3) mg/dL AST (17-59) U/L ALT (21-72) U/L Alkaline Phosphatase (38-126) U/L Troponin I (0.00-0.120) ng/mL NT-Pro-B Natriuret Pep (0-900) pg/mL Total Protein (6.3-8.3) g/dL Albumin (3.5-5.0) g/dL Globulin (2.2-3.9) gm/dL Albumin/Globulin Ratio (1.0-2.1) CSF VDRL Nonreactive (Nonreactive) Vancomycin Trough (5.0-10.0) ug/mL Laboratory Results - last 24 hr 12/02/17 12/03/17 12/03/17 15:32 12:05 12:28 WBC RBC Hgb Hct MCV MCH MCHC RDW Plt Count MPV Neut % (Auto) Lymph % (Auto) Taney % (Auto) Eos % (Auto) Baso % (Auto) Neut # (Auto) Lymph # (Auto) Taney # (Auto) Eos # (Auto) Baso # (Auto) Neutrophils % (Manual) Band Neutrophils % Lymphocytes % (Manual) Monocytes % (Manual) Platelet Estimate Large Platelets Hypochromasia (manual) Poikilocytosis (manual Anisocytosis (manual) Ovalocytes [place] Cells APTT 38 H D Puncture Site pCO2 pO2 HCO3 ABG pH ABG Total CO2 ABG O2 Saturation ABG Base Excess ABG Hemoglobin ABG Carboxyhemoglobin POC ABG HHb (Measured) ABG Methemoglobin Parviz Test A-a O2 Difference Respiratory Index Hgb O2 Saturation Vent Mode Mechanical Rate FiO2 Tidal Volume PEEP Sodium Potassium Chloride Carbon Dioxide Anion Gap BUN Creatinine Est GFR ( Amer) Est GFR (Non-Af Amer) POC Glucose (mg/dL) Random Glucose Calcium Phosphorus Magnesium Total Bilirubin AST ALT Alkaline Phosphatase Troponin I NT-Pro-B Natriuret Pep Total Protein Albumin Globulin Albumin/Globulin Ratio CSF VDRL Nonreactive Vancomycin Trough 12.2 H 12/03/17 12/03/17 12/03/17 12:33 17:44 22:48 WBC RBC Hgb Hct MCV MCH MCHC RDW Plt Count MPV Neut % (Auto) Lymph % (Auto) [place] % (Auto) Eos % (Auto) Baso % (Auto) Neut # (Auto) Lymph # (Auto) [place]aney # (Auto) Eos # (Auto) Baso # (Auto) Neutrophils % (Manual) Band Neutrophils % Lymphocytes % (Manual) Monocytes % (Manual) Platelet Estimate Large Platelets Hypochromasia (manual) Poikilocytosis (manual Anisocytosis (manual) Ovalocytes [place] Cells APTT 40 H Puncture Site pCO2 pO2 HCO3 ABG pH ABG Total CO2 ABG O2 Saturation ABG Base Excess ABG Hemoglobin ABG Carboxyhemoglobin POC ABG HHb (Measured) ABG Methemoglobin Parviz Test A-a O2 Difference Respiratory Index Hgb O2 Saturation Vent Mode Mechanical Rate FiO2 Tidal Volume PEEP Sodium Potassium Chloride Carbon Dioxide Anion Gap BUN Creatinine Est GFR ( Amer) Est GFR (Non-Af Amer) POC Glucose (mg/dL) 160 H 173 H Random Glucose Calcium Phosphorus Magnesium Total Bilirubin AST ALT Alkaline Phosphatase Troponin I NT-Pro-B Natriuret Pep Total Protein Albumin Globulin Albumin/Globulin Ratio CSF VDRL Vancomycin Trough 12/04/17 12/04/17 12/04/17 00:21 04:25 05:53 WBC RBC Hgb Hct MCV MCH MCHC RDW Plt Count MPV Neut % (Auto) Lymph % (Auto) [place] % (Auto) Eos % (Auto) Baso % (Auto) Neut # (Auto) Lymph # (Auto) [place]aney # (Auto) Eos # (Auto) Baso # (Auto) Neutrophils % (Manual) Band Neutrophils % Lymphocytes % (Manual) Monocytes % (Manual) Platelet Estimate Large Platelets Hypochromasia (manual) Poikilocytosis (manual Anisocytosis (manual) Ovalocytes Danni Cells APTT Puncture Site Lb pCO2 29 L pO2 151 H HCO3 17.1 L ABG pH 7.32 L ABG Total CO2 15.8 L ABG O2 Saturation 99.9 H ABG Base Excess -10.1 L ABG Hemoglobin 8.3 L ABG Carboxyhemoglobin 1.4 POC ABG HHb (Measured) 0.1 ABG Methemoglobin 1.0 Parviz Test Na A-a O2 Difference 169.0 Respiratory Index 1.1 Hgb O2 Saturation 97.5 Vent Mode Prvc Mechanical Rate 16 FiO2 50.0 Tidal Volume 450 PEEP 5 Sodium Potassium Chloride Carbon Dioxide Anion Gap BUN Creatinine Est GFR ( Amer) Est GFR (Non-Af Amer) POC Glucose (mg/dL) 157 H 203 H Random Glucose Calcium Phosphorus Magnesium Total Bilirubin AST ALT Alkaline Phosphatase Troponin I NT-Pro-B Natriuret Pep Total Protein Albumin Globulin Albumin/Globulin Ratio CSF VDRL Vancomycin Trough 12/04/17 12/04/17 12/04/17 06:37 06:37 06:38 WBC 18.1 H RBC 3.04 L Hgb 7.9 L Hct 25.0 L MCV 82.2 MCH 25.8 L MCHC 31.5 L RDW 17.0 H Plt Count 198 MPV 11.2 Neut % (Auto) 95.5 H Lymph % (Auto) 1.5 L [place]aney % (Auto) 2.9 Eos % (Auto) 0.0 Baso % (Auto) 0.1 Neut # (Auto) 17.3 H Lymph # (Auto) 0.3 L [place]aney # (Auto) 0.5 Eos # (Auto) 0.0 Baso # (Auto) 0.0 Neutrophils % (Manual) 95 H Band Neutrophils % 1 Lymphocytes % (Manual) 1 L Monocytes % (Manual) 3 Platelet Estimate Normal Large Platelets Present Hypochromasia (manual) Slight Poikilocytosis (manual Slight Anisocytosis (manual) Slight Ovalocytes Slight [place] Cells Slight APTT Puncture Site pCO2 pO2 HCO3 ABG pH ABG Total CO2 ABG O2 Saturation ABG Base Excess ABG Hemoglobin ABG Carboxyhemoglobin POC ABG HHb (Measured) ABG Methemoglobin Parviz Test A-a O2 Difference Respiratory Index Hgb O2 Saturation Vent Mode Mechanical Rate FiO2 Tidal Volume PEEP Sodium 142 Potassium 3.9 Chloride 114 H Carbon Dioxide 15 L Anion Gap 17 BUN 61 H Creatinine 2.5 H Est GFR ( Amer) 30 Est GFR (Non-Af Amer) 24 POC Glucose (mg/dL) Random Glucose 159 H Calcium 6.6 L Phosphorus 4.9 H Magnesium 1.6 Total Bilirubin 0.5 AST 18 ALT 41 Alkaline Phosphatase 82 Troponin I 0.2050 H* NT-Pro-B Natriuret Pep 7370 H Total Protein 5.0 L Albumin 2.3 L Globulin 2.7 Albumin/Globulin Ratio 0.9 L CSF VDRL Vancomycin Trough 16.8 H 12/04/17 06:38 WBC RBC Hgb Hct MCV MCH MCHC RDW Plt Count MPV Neut % (Auto) Lymph % (Auto) Taney % (Auto) Eos % (Auto) Baso % (Auto) Neut # (Auto) Lymph # (Auto) Taney # (Auto) Eos # (Auto) Baso # (Auto) Neutrophils % (Manual) Band Neutrophils % Lymphocytes % (Manual) Monocytes % (Manual) Platelet Estimate Large Platelets Hypochromasia (manual) Poikilocytosis (manual Anisocytosis (manual) Ovalocytes Danni Cells APTT 73 H D Puncture Site pCO2 pO2 HCO3 ABG pH ABG Total CO2 ABG O2 Saturation ABG Base Excess ABG Hemoglobin ABG Carboxyhemoglobin POC ABG HHb (Measured) ABG Methemoglobin Parviz Test A-a O2 Difference Respiratory Index Hgb O2 Saturation Vent Mode Mechanical Rate FiO2 Tidal Volume PEEP Sodium Potassium Chloride Carbon Dioxide Anion Gap BUN Creatinine Est GFR ( Amer) Est GFR (Non-Af Amer) POC Glucose (mg/dL) Random Glucose Calcium Phosphorus Magnesium Total Bilirubin AST ALT Alkaline Phosphatase Troponin I NT-Pro-B Natriuret Pep Total Protein Albumin Globulin Albumin/Globulin Ratio CSF VDRL Vancomycin Trough Fingerstick Blood Sugar Results: 203 Review of Systems - Review of Systems Systems not reviewed;Unavailable: Intubated Assessment/Plan - Assessment and Plan (Free Text) Plan: 87 y/o male with pmx of hydrocephalus requiring a shunt who was recently admitted to [facility] for respiratory distress. Patient was transferred to [facility] and brought back to [facility] for same complaint. Respiratory distress: intubated to protect airway continue ventilation suspect VQ mismatch 2nd aspiration staph/GPC, continue bronchodilators chest ct w/o contrast Sepsis serial lactic LP reveals no WBC no hydrocephalus as presusre only 5 de-escalate abx, pending HSV PCR continue vanco/aztronam/doxy AMS EEG pending suspect chronic -continue peg tube feeds CAD/NSTEMI/P. A-fib./flutter: asa, statin. Verapamil drip discontinued today. obtain cardiology eval, and echo, monitor to keep MAP >65, HR controlled today heparin IV discontinued. Change to Heparin 5000 units sc q8. SIMON 2nd sepsis/hypotension avoid nephrotoxic drgus vanco trough:16.8 Continue vancomycin, oral mucomyst -bgm q6hrs, novalog q6hrs -pud ppx pepcid -DVT ppx heparin -supplement with MVI/vitamin C -d/c droplet meningitis ruled out/MRSA contact isolation cc time 35 minutes -change from femoral line to IJ central line. Prognosis guarded
--- NOTE | 2017-12-04 11:45 | CARD ---
APPROVED REPORT EXAM: Two-dimensional and M-mode echocardiogram with Doppler and color Doppler. Other Information Quality : GoodRhythm : INDICATION Dyspnea LV Function:Systolic Sepsis / Lethargy 2D DIMENSIONS IVSd1.3 (0.7-1.1cm)LVDd3.8 (3.9-5.9cm) PWd1.2 (0.7-1.1cm)LVDs2.8 (2.5-4.0cm) FS (%) 26.4 %LVEF (%)50.0 (>50%) M-Mode DIMENSIONS Left Atrium (MM)3.43 (2.5-4.0cm)Aortic Root4.11 (2.2-3.7cm) Aortic Cusp Exc.2.45 (1.5-2.0cm) Mitral Valve MV E Msuyizoj52.8cm/sE/A ratio0.0 TDI E/Lateral E'0.0E/Medial E'0.0 Tricuspid Valve TR Peak [id number]/sTR Peak [id number] LEFT VENTRICLE The left ventricle is normal size. There is mild to moderate concentric left ventricular hypertrophy. The left ventricular function is normal. The left ventricular ejection fraction is within the normal range. There is normal LV segmental wall motion. The left ventricular diastolic function is normal. No left ventricle thrombus noted on this study. There is no ventricular septal defect visualized. There is no left ventricular aneurysm. There is no mass noted in the left ventricle. RIGHT VENTRICLE The right ventricle is normal size. There is normal right ventricular wall thickness. The right ventricular systolic function is normal. ATRIA The left atrium size is normal. The right atrium size is normal. AORTIC VALVE The aortic valve is normal in structure. No aortic regurgitation is present. There is no aortic valvular stenosis. There is no aortic valvular vegetation. MITRAL VALVE The mitral valve is normal in structure. There is no mitral valve stenosis. Mitral regurgitation is trace to mild. TRICUSPID VALVE The tricuspid valve is normal in structure. There is trace tricuspid regurgitation. PULMONIC VALVE The pulmonary valve is normal in structure. There is no pulmonic valvular regurgitation. GREAT VESSELS The aortic root is normal in size. The ascending aorta is normal in size. The pulmonary artery is normal. PERICARDIAL EFFUSION There is no pericardial effusion. <Conclusion> There is mild to moderate concentric left ventricular hypertrophy. Mitral regurgitation is trace to mild.lvef is 50%.
[2017-12-04] MEDS: Acetylcysteine 20% Inhal Soln (4ml) PO SCH ×2 (11:58→22:51)
--- NOTE | 2017-12-04 14:01 | CP.PCM.PN ---
Subjective - Date & Time of Evaluation Date of Evaluation: 12/04/17 Time of Evaluation: 14:01 Objective - Vital Signs/Intake and Output Vital Signs (last 24 hours): Temp Pulse Resp BP Pulse Ox 98.9 F 89 18 101/58 L 100 12/04/17 04:00 12/04/17 07:00 12/04/17 07:00 12/04/17 07:00 12/04/17 07:00 Intake and Output: 12/04/17 12/04/17 06:59 18:59 Intake Total 5769.4 129.2 Output Total 70 5 Balance 5699.4 124.2 - Medications Medications: Current Medications Acetaminophen (Tylenol 650mg/20.3ml Solution Ud) 650 mg PO Q6 PRN PRN Reason: fever Last Admin: 12/03/17 08:25 Dose: 650 mg Acetylcysteine (Acetylcysteine 20%) 6 ml PO Q12H [facility] Stop: 12/04/17 23:46 Last Admin: 12/04/17 11:58 Dose: 6 ml Aspirin (Aspirin Chewable) 81 mg PO DAILY [facility] Last Admin: 12/04/17 11:00 Dose: 81 mg Bisacodyl (Dulcolax) 10 mg [place] Q24H PRN PRN Reason: Constipation Famotidine (Pepcid) 20 mg IVP DAILY [facility] Last Admin: 12/04/17 10:42 Dose: Not Given Folic Acid (Folic Acid) 1 mg PO DAILY [facility] Last Admin: 12/04/17 10:41 Dose: 1 mg Heparin Sodium (Porcine) (Heparin) 5,000 units SC Q8 [facility] Last Admin: 12/04/17 13:58 Dose: 5,000 units Hydrocortisone Sodium Succinate (Solu-Cortef) 100 mg IV Q8H [facility] Last Admin: 12/04/17 11:58 Dose: 100 mg Vancomycin/Sodium Chloride (Vancomycin 1 Gm/Ns 200 Ml) 1 gm in 200 mls @ 133 mls/hr IVPB Q24H [facility] Stop: 12/07/17 15:01 Last Admin: 12/03/17 14:48 Dose: 133 mls/hr Sodium Chloride (Sodium Chloride 0.9%) 1,000 mls @ 75 mls/hr IV .[id number] [facility] Last Admin: 12/03/17 22:59 Dose: Not Given Aztreonam 2 gm/ Sodium (Chloride) 100 mls @ 100 mls/hr IVPB Q12H [facility] Last Admin: 12/04/17 11:59 Dose: 100 mls/hr Doxycycline Hyclate 100 mg/ (Sodium Chloride) 100 mls @ 100 mls/hr IVPB Q12H [facility] Last Admin: 12/04/17 11:59 Dose: 100 mls/hr Phenylephrine HCl 90 mg/ (Sodium Chloride) 259 mls @ 3.45 mls/hr IV .Q24H PRN; Protocol; 20 MCG/MIN PRN Reason: TITRATE PER MD ORDER Last Titration: 12/04/17 06:00 Dose: 67.76 mcg/min, 11.69 mls/hr Sodium Bicarbonate 150 meq/ (Dextrose) 1,150 mls @ 75 mls/hr IV .[id number] [facility] Last Admin: 12/04/17 09:27 Dose: 75 mls/hr Insulin Aspart (Novolog) 0 unit SC Q6 [facility] PRN Reason: Protocol Last Admin: 12/04/17 13:40 Dose: 1 unit Latanoprost (Xalatan Opht) 0 ml OD HS [facility] Last Admin: 12/03/17 21:16 Dose: 2.5 ml Pantoprazole Sodium (Protonix Inj) 40 mg IVP DAILY [facility] Last Admin: 12/04/17 10:41 Dose: 40 mg Rosuvastatin Calcium (Crestor) 5 mg PO HS [facility] Last Admin: 12/03/17 21:19 Dose: 5 mg Sucralfate (Carafate Oral Susp) 1 gm PO TID [facility] Last Admin: 12/04/17 13:57 Dose: 1 gm Thiamine HCl (Vitamin B1 Tab) 100 mg GT DAILY [facility] Last Admin: 12/04/17 10:43 Dose: 100 mg - Labs Labs: 12/04/17 06:38 12/04/17 06:37 PT 12.9 SECONDS (9.7-12.2) H 12/01/17 13:39 INR 1.15 (0.92-1.08) H 12/01/17 13:39 APTT 73 SECONDS (21-34) H D 12/04/17 06:38
[2017-12-04] MEDS: Sodium Chloride 0.9% 1,000 ML IV SCH (14:56)
[2017-12-04] MEDS: Vancomycin 1 gm/NS 200 ml 1 GM/200 ML BAG IVPB SCH (15:25)
[2017-12-04] MEDS: Acetaminophen 650mg/20.3ml solution UD PO PRN (15:26)
--- NOTE | 2017-12-04 19:35 | CT ---
EXAM: CT Chest Without Intravenous Contrast EXAM DATE/TIME: 12/04/2017 6:00 PM CLINICAL HISTORY: 87 years old, male; Signs and symptoms; Dyspnea; Additional info: Findings on xray TECHNIQUE: Axial computed tomography images of the chest without intravenous contrast. All CT scans at this facility use one or more dose reduction techniques, viz.: automated exposure control; ma/kV adjustment per patient size (including targeted exams where dose is matched to indication; i.e. head); or iterative reconstruction technique. Coronal and sagittal reformatted images were created and reviewed. COMPARISON: No relevant prior studies available. FINDINGS: LIMITATIONS: Moderate respiratory motion artifact. LUNGS: Large area of dense consolidation in the right lung apex, highly suspicious for pneumonia. 2.6 cm rounded density in the right upper lobe. Most likely, this represents a rounded area of pneumonia, but recommend followup to definitely rule out a mass, considered less likely. No evidence of diffuse pulmonary vascular congestion. PLEURAL SPACE: Bilateral pleural effusions, moderate in size, larger on the right. No pneumothorax is seen. HEART: Heart appears moderately to markedly enlarged. Coronary artery calcification. BONES/JOINTS: Mild, chronic compression fracture at T6. No acute bony abnormality visualized. SOFT TISSUES: Diffuse subcutaneous edema/anasarca. VASCULATURE: Exam is nondiagnostic for aortic dissection and pulmonary emboli, secondary to unenhanced technique. No evidence of thoracic aortic aneurysm. LYMPH NODES: No evidence of diffuse lymphadenopathy. GALLBLADDER AND BILE DUCTS: Fluid is seen adjacent to the gallbladder. Faint gallstones are seen. No evidence of significant pericholecystic inflammatory changes. INTRAPERITONEAL SPACE: Moderate amount of free fluid seen in the upper abdomen. TUBES, LINES AND DEVICES: Catheter in the right anterior chest wall soft tissues, which could represent a ventriculoperitoneal shunt. Endotracheal tube, percutaneous gastrostomy, and right central venous catheter, which do not appear to be malpositioned. IMPRESSION: - Moderate bilateral pleural effusions, moderate abdominal free fluid, and diffuse anasarca. This constellation of findings can be seen in the setting of diffuse third spacing, such as secondary to congestive heart failure or portal hypertension. Recommend clinical correlation. - Findings highly suspicious for pneumonia in the right lung apex. - Gallstones and fluid adjacent to the gallbladder. The fluid is most likely related to the generalized abdominal free fluid rather than representing pericholecystic fluid secondary to acute cholecystitis. However, if there is any clinical concern for acute cholecystitis, recommend right upper quadrant ultrasound for further evaluation. - 2.6 cm round density in the right upper lobe, most likely a round pneumonia, but recommend followup to definitely rule out a mass, considered less likely - Cardiomegaly. - See above for remaining findings.
--- NOTE | 2017-12-04 19:39 | CP.PCM.PN ---
Subjective - Date & Time of Evaluation Date of Evaluation: 12/04/17 Time of Evaluation: 13:00 - Subjective Subjective: clinically same Objective - Vital Signs/Intake and Output Vital Signs (last 24 hours): Temp Pulse Resp BP Pulse Ox 98.8 F 89 18 101/58 L 100 12/04/17 16:26 12/04/17 07:00 12/04/17 07:00 12/04/17 07:00 12/04/17 07:00 Intake and Output: 12/04/17 12/05/17 18:59 06:59 Intake Total 129.2 Output Total 5 Balance 124.2 - Medications Medications: Current Medications Acetaminophen (Tylenol 650mg/20.3ml Solution Ud) 650 mg PO Q6 PRN PRN Reason: fever Last Admin: 12/04/17 15:26 Dose: 650 mg Acetylcysteine (Acetylcysteine 20%) 6 ml PO Q12H [facility] Stop: 12/04/17 23:46 Last Admin: 12/04/17 11:58 Dose: 6 ml Aspirin (Aspirin Chewable) 81 mg PO DAILY [facility] Last Admin: 12/04/17 11:00 Dose: 81 mg Bisacodyl (Dulcolax) 10 mg [place] Q24H PRN PRN Reason: Constipation Famotidine (Pepcid) 20 mg IVP DAILY [facility] Last Admin: 12/04/17 10:42 Dose: Not Given Folic Acid (Folic Acid) 1 mg PO DAILY [facility] Last Admin: 12/04/17 10:41 Dose: 1 mg Heparin Sodium (Porcine) (Heparin) 5,000 units SC Q8 [facility] Last Admin: 12/04/17 13:58 Dose: 5,000 units Hydrocortisone Sodium Succinate (Solu-Cortef) 100 mg IV Q8H [facility] Last Admin: 12/04/17 11:58 Dose: 100 mg Vancomycin/Sodium Chloride (Vancomycin 1 Gm/Ns 200 Ml) 1 gm in 200 mls @ 133 mls/hr IVPB Q24H [facility] Stop: 12/07/17 15:01 Last Admin: 12/04/17 15:25 Dose: 133 mls/hr Aztreonam 2 gm/ Sodium (Chloride) 100 mls @ 100 mls/hr IVPB Q12H [facility] Last Admin: 12/04/17 11:59 Dose: 100 mls/hr Doxycycline Hyclate 100 mg/ (Sodium Chloride) 100 mls @ 100 mls/hr IVPB Q12H [facility] Last Admin: 12/04/17 11:59 Dose: 100 mls/hr Phenylephrine HCl 90 mg/ (Sodium Chloride) 259 mls @ 3.45 mls/hr IV .Q24H PRN; Protocol; 20 MCG/MIN PRN Reason: TITRATE PER MD ORDER Last Titration: 12/04/17 06:00 Dose: 67.76 mcg/min, 11.69 mls/hr Sodium Bicarbonate 150 meq/ (Dextrose) 1,150 mls @ 75 mls/hr IV .[id number] [facility] Last Admin: 12/04/17 09:27 Dose: 75 mls/hr Insulin Aspart (Novolog) 0 unit SC Q6 [facility] PRN Reason: Protocol Last Admin: 12/04/17 18:00 Dose: 3 unit Latanoprost (Xalatan Opht) 0 ml OD HS [facility] Last Admin: 12/03/17 21:16 Dose: 2.5 ml Pantoprazole Sodium (Protonix Inj) 40 mg IVP DAILY [facility] Last Admin: 12/04/17 10:41 Dose: 40 mg Rosuvastatin Calcium (Crestor) 5 mg PO HS [facility] Last Admin: 12/03/17 21:19 Dose: 5 mg Sucralfate (Carafate Oral Susp) 1 gm PO TID [facility] Last Admin: 12/04/17 17:57 Dose: 1 gm Thiamine HCl (Vitamin B1 Tab) 100 mg GT DAILY [facility] Last Admin: 12/04/17 10:43 Dose: 100 mg - Labs Labs: 12/04/17 06:38 12/04/17 06:37 PT 12.9 SECONDS (9.7-12.2) H 12/01/17 13:39 INR 1.15 (0.92-1.08) H 12/01/17 13:39 APTT 73 SECONDS (21-34) H D 12/04/17 06:38 Assessment and Plan (1) Bandemia Status: Acute (2) Dyspnea Status: Acute (3) Fever Status: Acute (4) Lethargy Status: Acute (5) Sepsis Status: Acute (6) Contusion Status: Acute (7) Fall Status: Acute
[2017-12-04] MEDS: Latanoprost 2.5 ml Opht Soln OD SCH (21:14)
[2017-12-05] MEDS: (Novolog) Insulin Aspart, Recombinant 100 u/ml 10 ml vial SC SCH ×4 (00:30→18:18)
[2017-12-05] MEDS: Sodium Bicarbonate 8.4% 150 MEQ in Dextrose 5% In Water 1,000 ML IV SCH ×2 (00:59→14:13)
[2017-12-05 01:05] LABS: SQUAMOUS EPITHIAL < 1 /hpf (0-5); URINE BACTERIA RARE (<OCC); URINE BILIRUBIN NEGATIVE (NEGATIVE); URINE BLOOD 2+ (NEGATIVE); URINE CLARITY Hazy (Clear); URINE COLOR Yellow (YELLOW); URINE GLUCOSE (UA) 1+ mg/dL (Normal); URINE LEUKOCYTE ESTERASE NEG Leu/uL (Negative); URINE NITRATE NEGATIVE (NEGATIVE); URINE PROTEIN 2+ mg/dL (NEGATIVE); URINE UROBILINOGEN NORMAL mg/dL (0.2-1.0); WBC CLUMPS MANY /hpf
[2017-12-05] MEDS: Aztreonam 2 GM in Sodium Chloride 0.9% 100 ML IVPB SCH (01:08)
[2017-12-05 05:39] LABS: ABG ALLEN TEST POS; ARTERIAL BLOOD GAS HCO3 20.7 mmol/L (21-28); ARTERIAL BLOOD GAS HEMOGLOBIN 8.6 g/dL (11.7-17.4); ARTERIAL BLOOD GAS O2 SAT 99.7 % (95-98); ARTERIAL BLOOD GAS PCO2 30 mm/Hg (35-45); ARTERIAL BLOOD GAS PO2 136 mm/Hg (80-100); ARTERIAL BLOOD GAS TCO2 19.5 mmol/L (22-28)
[2017-12-05] MEDS ORDERED: Albumin Human 25% (12.5 gm/50 ml) IV ONE (05:42)
[2017-12-05 06:44] LABS: BASO % 0.1 % (0.0-2.0); EOS % 0.1 % (0.0-4.0); HEMOGLOBIN 8.6 g/dL (12.0-18.0); LYMPH # 0.3 K/uL (1.0-4.3); LYMPH % 2.1 % (20.0-40.0); MEAN CELL VOLUME 81.2 fL (80.0-94.0); MEAN CORPUSCULAR HEMOGLOBIN 26.6 pg (27.0-31.0); MEAN CORPUSCULAR HGB CONC 32.8 g/dL (33.0-37.0); MEAN PLATELET VOLUME 10.9 fL (7.2-11.7); MONO # 0.6 K/uL (0.0-0.8); MONO % 4.4 % (0.0-10.0); NEUT # 12.4 K/uL (1.8-7.0); NEUT % 93.3 % (50.0-75.0); PLATELET COUNT 178 K/uL (130-400); RBC 3.25 Mil/uL (4.40-5.90); RED CELL DISTRIBUTION WIDTH 16.7 % (11.5-14.5); WHITE BLOOD COUNT 13.3 K/uL (4.8-10.8)
[2017-12-05 06:46] LABS: MAGNESIUM 1.8 mg/dL (1.6-2.3)
[2017-12-05 07:01] LABS: ALB/GLOB RATIO 0.9 (1.0-2.1); ALBUMIN 2.3 g/dL (3.5-5.0)
[2017-12-05 08:50] LABS: ANISOCYTOSIS SLIGHT; BANDS 1 % (0-2); HYPOCHROMIC SLIGHT; LYMPHOCYTE 2 % (20-40); MONOCYTE 3 % (0-10); NEUTROPHIL 94 % (50-75); PLATELET ESTIMATE NORMAL (NORMAL); POIKILOCYTOSIS SLIGHT; TOTAL CELLS COUNTED 100
[2017-12-05 08:51] LABS: BURR CELLS SLIGHT; TEARDROP CELLS SLIGHT
--- NOTE | 2017-12-05 09:16 | RAD ---
PROCEDURE: CHEST RADIOGRAPH, 1 VIEW HISTORY: intubated COMPARISON: None available. In situ ETT FINDINGS: In situ ETT, tip of which lies approximately 3.5 cm above dg. Right IJ central venous line with tip in the SVC. LUNGS: Bilateral lower lobe opacities likely representing some combination of atelectasis/infiltrate and bilateral effusions. Right upper lobe/apical consolidation. . There appears to be a more discrete rounded opacity right lateral upper lung field overlying the right anterior 2nd rib as well. PLEURA: No pneumothorax or pleural fluid seen. CARDIOVASCULAR: Normal. OSSEOUS STRUCTURES: No significant abnormalities. VISUALIZED UPPER ABDOMEN: Normal. OTHER FINDINGS: None. IMPRESSION: Support lines and tubes as above. Bilateral lower lobe opacities likely representing some combination of atelectasis/infiltrate and bilateral effusions. Right upper lobe/apical consolidation. . There appears to be a more discrete rounded opacity right lateral upper lung field overlying the right anterior 2nd rib as well.
[2017-12-05] MEDS ORDERED: Metoprolol 1 mg/ml Inj IVP ONE ×2 (09:55→16:08)
--- NOTE | 2017-12-05 10:20 | CP.PCM.PN ---
Subjective - Date & Time of Evaluation Date of Evaluation: 12/05/17 Time of Evaluation: 07:00 - Subjective Subjective: afeb on iv rx for mrsa blood / sputum recc echo Objective - Vital Signs/Intake and Output Vital Signs (last 24 hours): Temp Pulse Resp BP Pulse Ox 99.1 F 131 H 24 147/88 94 L 12/05/17 04:00 12/05/17 08:01 12/05/17 08:01 12/05/17 08:01 12/05/17 08:01 Intake and Output: 12/05/17 12/05/17 06:59 18:59 Intake Total 1763.4 225 Output Total 170 35 Balance 1593.4 190 - Medications Medications: Current Medications Acetaminophen (Tylenol 650mg/20.3ml Solution Ud) 650 mg PO Q6 PRN PRN Reason: fever Last Admin: 12/04/17 15:26 Dose: 650 mg Aspirin (Aspirin Chewable) 81 mg PO DAILY [facility] Last Admin: 12/04/17 11:00 Dose: 81 mg Bisacodyl (Dulcolax) 10 mg [place] Q24H PRN PRN Reason: Constipation Folic Acid (Folic Acid) 1 mg PO DAILY [facility] Last Admin: 12/04/17 10:41 Dose: 1 mg Heparin Sodium (Porcine) (Heparin) 5,000 units SC Q8 [facility] Last Admin: 12/05/17 05:16 Dose: 5,000 units Hydrocortisone Sodium Succinate (Solu-Cortef) 100 mg IV Q8H [facility] Last Admin: 12/05/17 03:36 Dose: 100 mg Aztreonam 2 gm/ Sodium (Chloride) 100 mls @ 100 mls/hr IVPB Q12H [facility] Last Admin: 12/05/17 01:08 Dose: 100 mls/hr Doxycycline Hyclate 100 mg/ (Sodium Chloride) 100 mls @ 100 mls/hr IVPB Q12H [facility] Last Admin: 12/05/17 00:27 Dose: 100 mls/hr Phenylephrine HCl 90 mg/ (Sodium Chloride) 259 mls @ 3.45 mls/hr IV .Q24H PRN; Protocol; 20 MCG/MIN PRN Reason: TITRATE PER MD ORDER Last Titration: 12/04/17 23:00 Dose: 0 mcg/min, 0 mls/hr Sodium Bicarbonate 150 meq/ (Dextrose) 1,150 mls @ 75 mls/hr IV .[id number] [facility] Last Admin: 12/05/17 00:59 Dose: 75 mls/hr Linezolid (Zyvox 600mg/300ml D5w) 600 mg in 300 mls @ 200 mls/hr IVPB Q12 [facility] Insulin Aspart (Novolog) 0 unit SC Q6 [facility] PRN Reason: Protocol Last Admin: 12/05/17 06:08 Dose: 3 unit Latanoprost (Xalatan Opht) 0 ml OD HS [facility] Last Admin: 12/04/17 21:14 Dose: 2.5 ml Pantoprazole Sodium (Protonix Inj) 40 mg IVP DAILY [facility] Last Admin: 12/04/17 10:41 Dose: 40 mg Rosuvastatin Calcium (Crestor) 5 mg PO HS [facility] Last Admin: 12/04/17 21:14 Dose: 5 mg Sucralfate (Carafate Oral Susp) 1 gm PO TID [facility] Last Admin: 12/04/17 17:57 Dose: 1 gm Thiamine HCl (Vitamin B1 Tab) 100 mg GT DAILY [facility] Last Admin: 12/04/17 10:43 Dose: 100 mg - Labs Labs: 12/05/17 06:28 12/05/17 06:28 PT 12.9 SECONDS (9.7-12.2) H 12/01/17 13:39 INR 1.15 (0.92-1.08) H 12/01/17 13:39 APTT 73 SECONDS (21-34) H D 12/04/17 06:38 - Constitutional Appears: Confused, Cachectic, Chronically Ill - Head Exam Head Exam: NORMOCEPHALIC - Eye Exam Eye Exam: PERRL - ENT Exam ENT Exam: Mucous Membranes Dry - Neck Exam Neck Exam: absent: Lymphadenopathy - Respiratory Exam Respiratory Exam: Decreased Breath Sounds - Cardiovascular Exam Cardiovascular Exam: REGULAR RHYTHM - GI/Abdominal Exam GI & Abdominal Exam: Distended, Soft - Rectal Exam Rectal Exam: Deferred - Exam Exam: NORMAL INSPECTION - Extremities Exam Extremities Exam: absent: Pedal Edema - Back Exam Back Exam: absent: CVA tenderness (L), CVA tenderness (R), NORMAL INSPECTION - Neurological Exam Neurological Exam: Altered Assessment and Plan (1) Respiratory failure Status: Acute (2) Pneumonia Status: Acute (3) Bandemia Status: Acute (4) Fever Status: Acute (5) Lethargy Status: Acute (6) Sepsis Status: Acute (7) Respiratory failure Status: Acute (8) Pneumonia Status: Acute
[2017-12-05] MEDS: Sucralfate 1 gm/10 ml Oral Susp UD PO SCH ×3 (10:25→17:09)
[2017-12-05] MEDS: Linezolid 600 mg in D5W 300 ml 600 MG/300 ML BAG IVPB SCH ×2 (10:31→22:25)
--- NOTE | 2017-12-05 10:54 | CP.CCUPN ---
<Jas Rockwell - Last Filed: 12/05/17 18:03> CCU Subjective - Physician Review Subjective (Free Text): 12/04/17 11:39 Patient seen and examined at bedside this A.M. Per nursing no acute events overnight. Patient scheduled for HD this morning. Critical Care Time Spent (in minutes): 40 CCU Objective - Vital Signs / Intake & Output Vital Signs (Last 4 hours): Vital Signs Pulse Resp BP Pulse Ox 12/05/17 08:01 131 H 24 147/88 94 L Intake and Output (Last 8hrs): Intake & Output 12/04/17 12/05/17 12/05/17 22:59 06:59 14:59 Intake Total 1280.2 1190 225 Output Total 95 125 35 Balance 1185.2 1065 190 Intake: IV 0 0 Intake, IV Amount 885.2 800 175 R IJ medial sideport 200 Right Distal Port 200 Internal Jugular Right Medial Port 85.2 0 100 Internal Jugular Right Proximal Port 600 600 75 Internal Jugular Tube Feeding 335 390 50 Other 60 Output: Urine 95 125 35 Urethral (Morgan) 95 125 35 Other: # Bowel Movements 0 0 0 - Physical Exam Head: Positive for: Atraumatic, Normocephalic Pupils: Positive for: PERRL Cardiovascular: Positive for: Normal S1, S2, Tachycardic Abdomen: Positive for: Normal Bowel Sounds. Negative for: Peritoneal Signs Upper Extremity: Positive for: Normal Inspection Lower Extremity: Positive for: Normal Inspection Neurological: Negative for: GCS=15, CN II-XII Intact - Medications Active Medications: Active Medications Generic Name Dose Route Start Last Admin Trade Name Freq PRN Reason Stop Dose Admin Acetaminophen 650 mg 12/02/17 07:49 12/04/17 15:26 Tylenol 650mg/20.3ml Solution Ud PO 650 mg Q6 PRN Administration fever Aspirin 81 mg 12/02/17 10:00 12/05/17 10:29 Aspirin Chewable PO 81 mg DAILY ANA Administration Bisacodyl 10 mg 12/03/17 11:57 Dulcolax NE Q24H PRN Constipation Diltiazem HCl 60 mg 12/05/17 12:00 Cardizem PO Q6 ANA Folic Acid 1 mg 12/02/17 10:00 12/05/17 10:25 Folic Acid PO 1 mg DAILY ANA Administration Heparin Sodium (Porcine) 5,000 units 12/04/17 14:00 12/05/17 05:16 Heparin SC 5,000 units Q8 ANA Administration Hydrocortisone Sodium Succinate 100 mg 12/03/17 11:45 12/05/17 03:36 Solu-Cortef IV 100 mg Q8H ANA Administration Aztreonam 2 gm/ Sodium 100 mls @ 100 mls/hr 12/03/17 13:00 12/05/17 01:08 Chloride IVPB 100 mls/hr Q12H ANA Administration Doxycycline Hyclate 100 mg/ 100 mls @ 100 mls/hr 12/03/17 12:30 12/05/17 00: 27 Sodium Chloride IVPB 100 mls/hr Q12H ANA Administration Phenylephrine HCl 90 mg/ 259 mls @ 3.45 mls/hr 12/03/17 21:00 12/04/17 23:00 Sodium Chloride IV 0 mcg/min .Q24H PRN 0 mls/hr TITRATE PER MD ORDER Titration Protocol 20 MCG/MIN Sodium Bicarbonate 150 meq/ 1,150 mls @ 75 mls/hr 12/04/17 07:00 12/05/17 00: 59 Dextrose IV 75 mls/hr .[id number] ANA Administration Linezolid 600 mg in 300 mls @ 200 mls/hr 12/05/17 10:00 12/05/17 10:31 Zyvox 600mg/300ml D5w IVPB 200 mls/hr Q12 ANA Administration Insulin Aspart 0 unit 12/04/17 00:00 12/05/17 06:08 Novolog SC 3 unit Q6 ANA Administration Protocol Latanoprost 0 ml 12/01/17 23:45 12/04/17 21:14 Xalatan Opht OD 2.5 ml HS ANA Administration Pantoprazole Sodium 40 mg 12/04/17 10:30 12/05/17 10:28 Protonix Inj IVP 40 mg DAILY ANA Administration Rosuvastatin Calcium 5 mg 12/01/17 22:00 12/04/17 21:14 Crestor PO 5 mg HS ANA Administration Sucralfate 1 gm 12/03/17 18:00 12/05/17 10:25 Carafate Oral Susp PO 1 gm TID ANA Administration Thiamine HCl 100 mg 12/02/17 10:00 12/05/17 10:25 Vitamin B1 Tab GT 100 mg DAILY ANA Administration - Patient Studies Lab Studies: Microbiology Studies 12/01/17 11:25 Blood Culture - Final Blood Staphylococcus Epidermidis Gram Stain - Final 12/02/17 15:20 Gram Stain - Final Cerebral Spinal Fluid CSF Culture - Preliminary NO GROWTH AFTER 2 DAYS 12/01/17 10:50 S.aureus & Coag-Neg Staph PNA FISH - Final Blood Blood Culture - Final Methicillin Resistant S Aureus Gram Stain - Final 12/02/17 15:17 Gram Stain - Final Trachasp Sputum Culture - Final Methicillin Resistant S Aureus 12/01/17 Unknown Gram Stain - Final Trachasp Sputum Culture - Final Methicillin Resistant S Aureus Lab Studies 12/05/17 12/05/17 12/05/17 Range/Units 06:28 06:28 06:28 WBC 13.3 H (4.8-10.8) K/uL RBC 3.25 L (4.40-5.90) Mil/uL Hgb 8.6 L (12.0-18.0) g/dL Hct 26.3 L (35.0-51.0) % MCV 81.2 (80.0-94.0) fL MCH 26.6 L (27.0-31.0) pg MCHC 32.8 L (33.0-37.0) g/dL RDW 16.7 H (11.5-14.5) % Plt Count 178 (130-400) K/uL MPV 10.9 (7.2-11.7) fL Neut % (Auto) 93.3 H (50.0-75.0) % Lymph % (Auto) 2.1 L (20.0-40.0) % [place] % (Auto) 4.4 (0.0-10.0) % Eos % (Auto) 0.1 (0.0-4.0) % Baso % (Auto) 0.1 (0.0-2.0) % Neut # (Auto) 12.4 H (1.8-7.0) K/uL Lymph # (Auto) 0.3 L (1.0-4.3) K/uL [place] # (Auto) 0.6 (0.0-0.8) K/uL Eos # (Auto) 0.0 (0.0-0.7) K/uL Baso # (Auto) 0.0 (0.0-0.2) K/uL Neutrophils % (Manual) 94 H (50-75) % Band Neutrophils % 1 (0-2) % Lymphocytes % (Manual) 2 L (20-40) % Monocytes % (Manual) 3 (0-10) % Platelet Estimate Normal (NORMAL) Hypochromasia (manual) Slight Poikilocytosis (manual Slight Anisocytosis (manual) Slight Tear Drop Cells Slight Danni Cells Slight Puncture Site pCO2 (35-45) mm/Hg pO2 (80-100) mm/Hg HCO3 (21-28) mmol/L ABG pH (7.35-7.45) ABG Total CO2 (22-28) mmol/L ABG O2 Saturation (95-98) % ABG Base Excess (-2.0-3.0) mmol/L ABG Hemoglobin (11.7-17.4) g/dL ABG Carboxyhemoglobin (0.5-1.5) % POC ABG HHb (Measured) (0.0-5.0) % ABG Methemoglobin (0.0-3.0) % Parviz Test A-a O2 Difference mm/Hg Respiratory Index Hgb O2 Saturation (95.0-98.0) % Vent Mode Mechanical Rate FiO2 % Tidal Volume PEEP Sodium 144 (132-148) mmol/L Potassium 3.9 (3.6-5.2) mmol/L Chloride 112 H (98-107) mmol/L Carbon Dioxide 20 L (22-30) mmol/L Anion Gap 16 (10-20) BUN 79 H (9-20) mg/dL Creatinine 2.9 H (0.8-1.5) mg/dL Est GFR ( Amer) 25 Est GFR (Non-Af Amer) 21 POC Glucose (mg/dL) (65-110) mg/dL Random Glucose 253 H (75-110) mg/dL Calcium 7.0 L (8.6-10.4) mg/dl Phosphorus 4.6 H (2.5-4.5) mg/dL Magnesium 1.8 (1.6-2.3) mg/dL Total Bilirubin 0.2 (0.2-1.3) mg/dL AST 30 (17-59) U/L ALT 40 (21-72) U/L Alkaline Phosphatase 97 (38-126) U/L Total Protein 4.9 L (6.3-8.3) g/dL Albumin 2.3 L (3.5-5.0) g/dL Globulin 2.6 (2.2-3.9) gm/dL Albumin/Globulin Ratio 0.9 L (1.0-2.1) Urine Color (YELLOW) Urine Clarity (Clear) Urine pH (5.0-8.0) Ur Specific [place] (1.003-1.030) Urine Protein (NEGATIVE) mg/dL Urine Glucose (UA) (Normal) mg/dL Urine Ketones (NEGATIVE) mg/dL Urine Blood (NEGATIVE) Urine Nitrate (NEGATIVE) Urine Bilirubin (NEGATIVE) Urine Urobilinogen (0.2-1.0) mg/dL Ur Leukocyte Esterase (Negative) Keyru/uL Urine WBC (Auto) (0-5) /hpf Urine RBC (Auto) (0-3) /hpf Urine WBC Clumps (Auto) (NONE) /hpf Ur Squamous Epith Cells (0-5) /hpf Urine Bacteria (<OCC) Urine Yeast (Budding) (NEGATIVE) /hpf CSF Cryptococcus Ag (Not Detected) Random Vancomycin ug/mL 12/05/17 12/05/17 12/05/17 Range/Units 05:38 05:30 01:06 WBC (4.8-10.8) K/uL RBC (4.40-5.90) Mil/uL Hgb (12.0-18.0) g/dL Hct (35.0-51.0) % MCV (80.0-94.0) fL MCH (27.0-31.0) pg MCHC (33.0-37.0) g/dL RDW (11.5-14.5) % Plt Count (130-400) K/uL MPV (7.2-11.7) fL Neut % (Auto) (50.0-75.0) % Lymph % (Auto) (20.0-40.0) % [place] % (Auto) (0.0-10.0) % Eos % (Auto) (0.0-4.0) % Baso % (Auto) (0.0-2.0) % Neut # (Auto) (1.8-7.0) K/uL Lymph # (Auto) (1.0-4.3) K/uL [place] # (Auto) (0.0-0.8) K/uL Eos # (Auto) (0.0-0.7) K/uL Baso # (Auto) (0.0-0.2) K/uL Neutrophils % (Manual) (50-75) % Band Neutrophils % (0-2) % Lymphocytes % (Manual) (20-40) % Monocytes % (Manual) (0-10) % Platelet Estimate (NORMAL) Hypochromasia (manual) Poikilocytosis (manual Anisocytosis (manual) Tear Drop Cells Danni Cells Puncture Site Lr pCO2 30 L (35-45) mm/Hg pO2 136 H (80-100) mm/Hg HCO3 20.7 L (21-28) mmol/L ABG pH 7.40 (7.35-7.45) ABG Total CO2 19.5 L (22-28) mmol/L ABG O2 Saturation 99.7 H (95-98) % ABG Base Excess -5.5 L (-2.0-3.0) mmol/L ABG Hemoglobin 8.6 L (11.7-17.4) g/dL ABG Carboxyhemoglobin 1.5 (0.5-1.5) % POC ABG HHb (Measured) 0.3 (0.0-5.0) % ABG Methemoglobin 1.0 (0.0-3.0) % Parviz Test Pos A-a O2 Difference 183.0 mm/Hg Respiratory Index 1.3 Hgb O2 Saturation 97.2 (95.0-98.0) % Vent Mode Prvc Mechanical Rate 16 FiO2 50.0 % Tidal Volume 450 PEEP 5 Sodium (132-148) mmol/L Potassium (3.6-5.2) mmol/L Chloride (98-107) mmol/L Carbon Dioxide (22-30) mmol/L Anion Gap (10-20) BUN (9-20) mg/dL Creatinine (0.8-1.5) mg/dL Est GFR ( Amer) Est GFR (Non-Af Amer) POC Glucose (mg/dL) 295 H (65-110) mg/dL Random Glucose (75-110) mg/dL Calcium (8.6-10.4) mg/dl Phosphorus (2.5-4.5) mg/dL Magnesium (1.6-2.3) mg/dL Total Bilirubin (0.2-1.3) mg/dL AST (17-59) U/L ALT (21-72) U/L Alkaline Phosphatase (38-126) U/L Total Protein (6.3-8.3) g/dL Albumin (3.5-5.0) g/dL Globulin (2.2-3.9) gm/dL Albumin/Globulin Ratio (1.0-2.1) Urine Color Yellow (YELLOW) Urine Clarity Hazy (Clear) Urine pH 5.0 (5.0-8.0) Ur Specific [place] 1.017 (1.003-1.030) Urine Protein 2+ H (NEGATIVE) mg/dL Urine Glucose (UA) 1+ H (Normal) mg/dL Urine Ketones Negative (NEGATIVE) mg/dL Urine Blood 2+ H (NEGATIVE) Urine Nitrate Negative (NEGATIVE) Urine Bilirubin Negative (NEGATIVE) Urine Urobilinogen Normal (0.2-1.0) mg/dL Ur Leukocyte Esterase Neg (Negative) Keyur/uL Urine WBC (Auto) 31 H (0-5) /hpf Urine RBC (Auto) 77 H (0-3) /hpf Urine WBC Clumps (Auto) Many H (NONE) /hpf Ur Squamous Epith Cells < 1 (0-5) /hpf Urine Bacteria Rare (<OCC) Urine Yeast (Budding) Many H (NEGATIVE) /hpf CSF Cryptococcus Ag (Not Detected) Random Vancomycin ug/mL 12/05/17 12/04/17 12/04/17 Range/Units 00:59 23:44 18:05 WBC (4.8-10.8) K/uL RBC (4.40-5.90) Mil/uL Hgb (12.0-18.0) g/dL Hct (35.0-51.0) % MCV (80.0-94.0) fL MCH (27.0-31.0) pg MCHC (33.0-37.0) g/dL RDW (11.5-14.5) % Plt Count (130-400) K/uL MPV (7.2-11.7) fL Neut % (Auto) (50.0-75.0) % Lymph % (Auto) (20.0-40.0) % [place] % (Auto) (0.0-10.0) % Eos % (Auto) (0.0-4.0) % Baso % (Auto) (0.0-2.0) % Neut # (Auto) (1.8-7.0) K/uL Lymph # (Auto) (1.0-4.3) K/uL [place] # (Auto) (0.0-0.8) K/uL Eos # (Auto) (0.0-0.7) K/uL Baso # (Auto) (0.0-0.2) K/uL Neutrophils % (Manual) (50-75) % Band Neutrophils % (0-2) % Lymphocytes % (Manual) (20-40) % Monocytes % (Manual) (0-10) % Platelet Estimate (NORMAL) Hypochromasia (manual) Poikilocytosis (manual Anisocytosis (manual) Tear Drop Cells Danni Cells Puncture Site pCO2 (35-45) mm/Hg pO2 (80-100) mm/Hg HCO3 (21-28) mmol/L ABG pH (7.35-7.45) ABG Total CO2 (22-28) mmol/L ABG O2 Saturation (95-98) % ABG Base Excess (-2.0-3.0) mmol/L ABG Hemoglobin (11.7-17.4) g/dL ABG Carboxyhemoglobin (0.5-1.5) % POC ABG HHb (Measured) (0.0-5.0) % ABG Methemoglobin (0.0-3.0) % Parviz Test A-a O2 Difference mm/Hg Respiratory Index Hgb O2 Saturation (95.0-98.0) % Vent Mode Mechanical Rate FiO2 % Tidal Volume PEEP Sodium (132-148) mmol/L Potassium (3.6-5.2) mmol/L Chloride (98-107) mmol/L Carbon Dioxide (22-30) mmol/L Anion Gap (10-20) BUN (9-20) mg/dL Creatinine (0.8-1.5) mg/dL Est GFR ( Amer) Est GFR (Non-Af Amer) POC Glucose (mg/dL) 220 H 280 H (65-110) mg/dL Random Glucose (75-110) mg/dL Calcium (8.6-10.4) mg/dl Phosphorus (2.5-4.5) mg/dL Magnesium (1.6-2.3) mg/dL Total Bilirubin (0.2-1.3) mg/dL AST (17-59) U/L ALT (21-72) U/L Alkaline Phosphatase (38-126) U/L Total Protein (6.3-8.3) g/dL Albumin (3.5-5.0) g/dL Globulin (2.2-3.9) gm/dL Albumin/Globulin Ratio (1.0-2.1) Urine Color (YELLOW) Urine Clarity (Clear) Urine pH (5.0-8.0) Ur Specific [place] (1.003-1.030) Urine Protein (NEGATIVE) mg/dL Urine Glucose (UA) (Normal) mg/dL Urine Ketones (NEGATIVE) mg/dL Urine Blood (NEGATIVE) Urine Nitrate (NEGATIVE) Urine Bilirubin (NEGATIVE) Urine Urobilinogen (0.2-1.0) mg/dL Ur Leukocyte Esterase (Negative) Keyur/uL Urine WBC (Auto) (0-5) /hpf Urine RBC (Auto) (0-3) /hpf Urine WBC Clumps (Auto) (NONE) /hpf Ur Squamous Epith Cells (0-5) /hpf Urine Bacteria (<OCC) Urine Yeast (Budding) (NEGATIVE) /hpf CSF Cryptococcus Ag (Not Detected) Random Vancomycin 20.70 ug/mL 12/04/17 12/02/17 Range/Units 11:41 15:32 WBC (4.8-10.8) K/uL RBC (4.40-5.90) Mil/uL Hgb (12.0-18.0) g/dL Hct (35.0-51.0) % MCV (80.0-94.0) fL MCH (27.0-31.0) pg MCHC (33.0-37.0) g/dL RDW (11.5-14.5) % Plt Count (130-400) K/uL MPV (7.2-11.7) fL Neut % (Auto) (50.0-75.0) % Lymph % (Auto) (20.0-40.0) % [place] % (Auto) (0.0-10.0) % Eos % (Auto) (0.0-4.0) % Baso % (Auto) (0.0-2.0) % Neut # (Auto) (1.8-7.0) K/uL Lymph # (Auto) (1.0-4.3) K/uL [place] # (Auto) (0.0-0.8) K/uL Eos # (Auto) (0.0-0.7) K/uL Baso # (Auto) (0.0-0.2) K/uL Neutrophils % (Manual) (50-75) % Band Neutrophils % (0-2) % Lymphocytes % (Manual) (20-40) % Monocytes % (Manual) (0-10) % Platelet Estimate (NORMAL) Hypochromasia (manual) Poikilocytosis (manual Anisocytosis (manual) Tear Drop Cells Danni Cells Puncture Site pCO2 (35-45) mm/Hg pO2 (80-100) mm/Hg HCO3 (21-28) mmol/L ABG pH (7.35-7.45) ABG Total CO2 (22-28) mmol/L ABG O2 Saturation (95-98) % ABG Base Excess (-2.0-3.0) mmol/L ABG Hemoglobin (11.7-17.4) g/dL ABG Carboxyhemoglobin (0.5-1.5) % POC ABG HHb (Measured) (0.0-5.0) % ABG Methemoglobin (0.0-3.0) % Parviz Test A-a O2 Difference mm/Hg Respiratory Index Hgb O2 Saturation (95.0-98.0) % Vent Mode Mechanical Rate FiO2 % Tidal Volume PEEP Sodium (132-148) mmol/L Potassium (3.6-5.2) mmol/L Chloride (98-107) mmol/L Carbon Dioxide (22-30) mmol/L Anion Gap (10-20) BUN (9-20) mg/dL Creatinine (0.8-1.5) mg/dL Est GFR ( Amer) Est GFR (Non-Af Amer) POC Glucose (mg/dL) 196 H (65-110) mg/dL Random Glucose (75-110) mg/dL Calcium (8.6-10.4) mg/dl Phosphorus (2.5-4.5) mg/dL Magnesium (1.6-2.3) mg/dL Total Bilirubin (0.2-1.3) mg/dL AST (17-59) U/L ALT (21-72) U/L Alkaline Phosphatase (38-126) U/L Total Protein (6.3-8.3) g/dL Albumin (3.5-5.0) g/dL Globulin (2.2-3.9) gm/dL Albumin/Globulin Ratio (1.0-2.1) Urine Color (YELLOW) Urine Clarity (Clear) Urine pH (5.0-8.0) Ur Specific [place] (1.003-1.030) Urine Protein (NEGATIVE) mg/dL Urine Glucose (UA) (Normal) mg/dL Urine Ketones (NEGATIVE) mg/dL Urine Blood (NEGATIVE) Urine Nitrate (NEGATIVE) Urine Bilirubin (NEGATIVE) Urine Urobilinogen (0.2-1.0) mg/dL Ur Leukocyte Esterase (Negative) Keyur/uL Urine WBC (Auto) (0-5) /hpf Urine RBC (Auto) (0-3) /hpf Urine WBC Clumps (Auto) (NONE) /hpf Ur Squamous Epith Cells (0-5) /hpf Urine Bacteria (<OCC) Urine Yeast (Budding) (NEGATIVE) /hpf CSF Cryptococcus Ag Not detected (Not Detected) Random Vancomycin ug/mL Laboratory Results - last 24 hr 12/02/17 12/04/17 12/04/17 15:32 11:41 18:05 WBC RBC Hgb Hct MCV MCH MCHC RDW Plt Count MPV Neut % (Auto) Lymph % (Auto) [place] % (Auto) Eos % (Auto) Baso % (Auto) Neut # (Auto) Lymph # (Auto) [place] # (Auto) Eos # (Auto) Baso # (Auto) Neutrophils % (Manual) Band Neutrophils % Lymphocytes % (Manual) Monocytes % (Manual) Platelet Estimate Hypochromasia (manual) Poikilocytosis (manual Anisocytosis (manual) Tear Drop Cells Danni Cells Puncture Site pCO2 pO2 HCO3 ABG pH ABG Total CO2 ABG O2 Saturation ABG Base Excess ABG Hemoglobin ABG Carboxyhemoglobin POC ABG HHb (Measured) ABG Methemoglobin Parviz Test A-a O2 Difference Respiratory Index Hgb O2 Saturation Vent Mode Mechanical Rate FiO2 Tidal Volume PEEP Sodium Potassium Chloride Carbon Dioxide Anion Gap BUN Creatinine Est GFR ( Amer) Est GFR (Non-Af Amer) POC Glucose (mg/dL) 196 H 280 H Random Glucose Calcium Phosphorus Magnesium Total Bilirubin AST ALT Alkaline Phosphatase Total Protein Albumin Globulin Albumin/Globulin Ratio Urine Color Urine Clarity Urine pH Ur Specific [place] Urine Protein Urine Glucose (UA) Urine Ketones Urine Blood Urine Nitrate Urine Bilirubin Urine Urobilinogen Ur Leukocyte Esterase Urine WBC (Auto) Urine RBC (Auto) Urine WBC Clumps (Auto) Ur Squamous Epith Cells Urine Bacteria Urine Yeast (Budding) CSF Cryptococcus Ag Not detected Random Vancomycin 12/04/17 12/05/17 12/05/17 23:44 00:59 01:06 WBC RBC Hgb Hct MCV MCH MCHC RDW Plt Count MPV Neut % (Auto) Lymph % (Auto) [place] % (Auto) Eos % (Auto) Baso % (Auto) Neut # (Auto) Lymph # (Auto) [place] # (Auto) Eos # (Auto) Baso # (Auto) Neutrophils % (Manual) Band Neutrophils % Lymphocytes % (Manual) Monocytes % (Manual) Platelet Estimate Hypochromasia (manual) Poikilocytosis (manual Anisocytosis (manual) Tear Drop Cells Danni Cells Puncture Site pCO2 pO2 HCO3 ABG pH ABG Total CO2 ABG O2 Saturation ABG Base Excess ABG Hemoglobin ABG Carboxyhemoglobin POC ABG HHb (Measured) ABG Methemoglobin Parviz Test A-a O2 Difference Respiratory Index Hgb O2 Saturation Vent Mode Mechanical Rate FiO2 Tidal Volume PEEP Sodium Potassium Chloride Carbon Dioxide Anion Gap BUN Creatinine Est GFR ( Amer) Est GFR (Non-Af Amer) POC Glucose (mg/dL) 220 H Random Glucose Calcium Phosphorus Magnesium Total Bilirubin AST ALT Alkaline Phosphatase Total Protein Albumin Globulin Albumin/Globulin Ratio Urine Color Yellow Urine Clarity Hazy Urine pH 5.0 Ur Specific [place] 1.017 Urine Protein 2+ H Urine Glucose (UA) 1+ H Urine Ketones Negative Urine Blood 2+ H Urine Nitrate Negative Urine Bilirubin Negative Urine Urobilinogen Normal Ur Leukocyte Esterase Neg Urine WBC (Auto) 31 H Urine RBC (Auto) 77 H Urine WBC Clumps (Auto) Many H Ur Squamous Epith Cells < 1 Urine Bacteria Rare Urine Yeast (Budding) Many H CSF Cryptococcus Ag Random Vancomycin 20.70 12/05/17 12/05/17 12/05/17 05:30 05:38 06:28 WBC 13.3 H RBC 3.25 L Hgb 8.6 L Hct 26.3 L MCV 81.2 MCH 26.6 L MCHC 32.8 L RDW 16.7 H Plt Count 178 MPV 10.9 Neut % (Auto) 93.3 H Lymph % (Auto) 2.1 L [place] % (Auto) 4.4 Eos % (Auto) 0.1 Baso % (Auto) 0.1 Neut # (Auto) 12.4 H Lymph # (Auto) 0.3 L [place] # (Auto) 0.6 Eos # (Auto) 0.0 Baso # (Auto) 0.0 Neutrophils % (Manual) 94 H Band Neutrophils % 1 Lymphocytes % (Manual) 2 L Monocytes % (Manual) 3 Platelet Estimate Normal Hypochromasia (manual) Slight Poikilocytosis (manual Slight Anisocytosis (manual) Slight Tear Drop Cells Slight Danni Cells Slight Puncture Site Lr pCO2 30 L pO2 136 H HCO3 20.7 L ABG pH 7.40 ABG Total CO2 19.5 L ABG O2 Saturation 99.7 H ABG Base Excess -5.5 L ABG Hemoglobin 8.6 L ABG Carboxyhemoglobin 1.5 POC ABG HHb (Measured) 0.3 ABG Methemoglobin 1.0 Parviz Test Pos A-a O2 Difference 183.0 Respiratory Index 1.3 Hgb O2 Saturation 97.2 Vent Mode Prvc Mechanical Rate 16 FiO2 50.0 Tidal Volume 450 PEEP 5 Sodium Potassium Chloride Carbon Dioxide Anion Gap BUN Creatinine Est GFR ( Amer) Est GFR (Non-Af Amer) POC Glucose (mg/dL) 295 H Random Glucose Calcium Phosphorus Magnesium Total Bilirubin AST ALT Alkaline Phosphatase Total Protein Albumin Globulin Albumin/Globulin Ratio Urine Color Urine Clarity Urine pH Ur Specific [place] Urine Protein Urine Glucose (UA) Urine Ketones Urine Blood Urine Nitrate Urine Bilirubin Urine Urobilinogen Ur Leukocyte Esterase Urine WBC (Auto) Urine RBC (Auto) Urine WBC Clumps (Auto) Ur Squamous Epith Cells Urine Bacteria Urine Yeast (Budding) CSF Cryptococcus Ag Random Vancomycin 12/05/1718 06:28 06:28 WBC RBC Hgb Hct MCV MCH MCHC RDW Plt Count MPV Neut % (Auto) Lymph % (Auto) [place] % (Auto) Eos % (Auto) Baso % (Auto) Neut # (Auto) Lymph # (Auto) [place] # (Auto) Eos # (Auto) Baso # (Auto) Neutrophils % (Manual) Band Neutrophils % Lymphocytes % (Manual) Monocytes % (Manual) Platelet Estimate Hypochromasia (manual) Poikilocytosis (manual Anisocytosis (manual) Tear Drop Cells [place] Cells Puncture Site pCO2 pO2 HCO3 ABG pH ABG Total CO2 ABG O2 Saturation ABG Base Excess ABG Hemoglobin ABG Carboxyhemoglobin POC ABG HHb (Measured) ABG Methemoglobin Parviz Test A-a O2 Difference Respiratory Index Hgb O2 Saturation Vent Mode Mechanical Rate FiO2 Tidal Volume PEEP Sodium 144 Potassium 3.9 Chloride 112 H Carbon Dioxide 20 L Anion Gap 16 BUN 79 H Creatinine 2.9 H Est GFR ( Amer) 25 Est GFR (Non-Af Amer) 21 POC Glucose (mg/dL) Random Glucose 253 H Calcium 7.0 L Phosphorus 4.6 H Magnesium 1.8 Total Bilirubin 0.2 AST 30 ALT 40 Alkaline Phosphatase 97 Total Protein 4.9 L Albumin 2.3 L Globulin 2.6 Albumin/Globulin Ratio 0.9 L Urine Color Urine Clarity Urine pH Ur Specific [place] Urine Protein Urine Glucose (UA) Urine Ketones Urine Blood Urine Nitrate Urine Bilirubin Urine Urobilinogen Ur Leukocyte Esterase Urine WBC (Auto) Urine RBC (Auto) Urine WBC Clumps (Auto) Ur Squamous Epith Cells Urine Bacteria Urine Yeast (Budding) CSF Cryptococcus Ag Random Vancomycin Fingerstick Blood Sugar Results: 295 Review of Systems - Review of Systems Systems not reviewed;Unavailable: Acuity of Condition Assessment/Plan - Assessment and Plan (Free Text) Assessment: 87 y/o male with pmx of hydrocephalus requiring a shunt who was recently admitted to [facility] for respiratory distress. Patient was transferred to [facility] and brought back to [facility] for same complaint. Plan: Respiratory distress: intubated to protect airway continue ventilation suspect VQ mismatch 2nd aspiration staph/GPC, continue bronchodilators chest ct w/o contrast showed moderate pleurel effusion, CHF vs. Portal hypertension, findings suspicious PNA in right lung apex, gallstones and fluid adjacent to gallbladder, 2.6cm density in the Right upper lobe CPAP trials today. Sepsis serial lactic LP reveals no WBC, non reacitive to VDRL no hydrocephalus as presusre only 5 de-escalate abx, pending HSV PCR continue vanco/aztronam/doxy AMS EEG pending suspect chronic -continue peg tube feeds CAD/NSTEMI/P. A-fib./flutter: asa, statin. Cardizem 60mg Q6 obtain cardiology eval,monitor to keep MAP >65, Echo: EF 50%, mild to moderate concentric LVH, and mild M.R. HR controlled today Continue Heparin 5000 units sc q8. SIMON 2nd sepsis/hypotension avoid nephrotoxic drgus vanco trough:16.8 Continue vancomycin, oral mucomyst DVT ppx heparin -supplement with -pud ppx pepcid MVI/vitamin C -d/c droplet meningitis ruled out/MRSA contact isolation -bgm q6hrs, novalog q6hrs cc time 35 minutes Prognosis guarded <Kraig Cook - Last Filed: 12/05/17 18:27> CCU Objective - Vital Signs / Intake & Output Vital Signs (Last 4 hours): Vital Signs Temp Pulse Resp BP Pulse Ox 12/05/17 18:01 99 H 24 103/46 L 97 12/05/17 17:00 129 H 24 136/81 95 12/05/17 16:00 100 F H 130 H 23 107/68 94 L 12/05/17 15:00 129 H 18 122/59 L 95 Intake and Output (Last 8hrs): Intake & Output 12/05/17 12/05/17 12/05/17 06:59 14:59 22:59 Intake Total 1190 1600 500 Output Total 125 345 260 Balance 1065 1255 240 Intake: IV 0 Intake, IV Amount 800 1200 300 R IJ medial sideport 200 Right Medial Port 0 600 Internal Jugular Right Proximal Port 600 600 300 Internal Jugular Tube Feeding 390 400 200 Output: Urine 125 345 260 Urethral (Morgan) 125 345 260 Other: # Bowel Movements 0 0 0 - Medications Active Medications: Active Medications Generic Name Dose Route Start Last Admin Trade Name Freq PRN Reason Stop Dose Admin Acetaminophen 650 mg 12/02/17 07:49 12/04/17 15:26 Tylenol 650mg/20.3ml Solution Ud PO 650 mg Q6 PRN Administration fever Aspirin 81 mg 12/02/17 10:00 12/05/17 10:29 Aspirin Chewable PO 81 mg DAILY ANA Administration Bisacodyl 10 mg 12/03/17 11:57 Dulcolax NE Q24H PRN Constipation Diltiazem HCl 60 mg 12/05/17 12:00 12/05/17 17:09 Cardizem PO 60 mg Q6 ANA Administration Folic Acid 1 mg 12/02/17 10:00 12/05/17 10:25 Folic Acid PO 1 mg DAILY ANA Administration Heparin Sodium (Porcine) 5,000 units 12/04/17 14:00 12/05/17 14:13 Heparin SC 5,000 units Q8 ANA Administration Hydrocortisone Sodium Succinate 100 mg 12/03/17 11:45 12/05/17 10:56 Solu-Cortef IV 100 mg Q8H ANA Administration Doxycycline Hyclate 100 mg/ 100 mls @ 100 mls/hr 12/03/17 12:30 12/05/17 11: 45 Sodium Chloride IVPB 100 mls/hr Q12H ANA Administration Phenylephrine HCl 90 mg/ 259 mls @ 3.45 mls/hr 12/03/17 21:00 12/04/17 23:00 Sodium Chloride IV 0 mcg/min .Q24H PRN 0 mls/hr TITRATE PER MD ORDER Titration Protocol 20 MCG/MIN Sodium Bicarbonate 150 meq/ 1,150 mls @ 75 mls/hr 12/04/17 07:00 12/05/17 14: 13 Dextrose IV 75 mls/hr .[id number] ANA Administration Linezolid 600 mg in 300 mls @ 200 mls/hr 12/05/17 10:00 12/05/17 10:31 Zyvox 600mg/300ml D5w IVPB 200 mls/hr Q12 ANA Administration Aztreonam 1 gm/ Sodium 100 mls @ 100 mls/hr 12/05/17 13:00 12/05/17 13:30 Chloride IVPB 100 mls/hr Q12H ANA Administration Insulin Aspart 0 unit 12/05/17 11:37 12/05/17 18:18 Novolog SC 6 unit Q6 ANA Administration Protocol Latanoprost 0 ml 12/01/17 23:45 12/04/17 21:14 Xalatan Opht OD 2.5 ml HS ANA Administration Pantoprazole Sodium 40 mg 12/04/17 10:30 12/05/17 10:28 Protonix Inj IVP 40 mg DAILY ANA Administration Rosuvastatin Calcium 5 mg 12/01/17 22:00 12/04/17 21:14 Crestor PO 5 mg HS ANA Administration Sucralfate 1 gm 12/03/17 18:00 12/05/17 17:09 Carafate Oral Susp PO 1 gm TID ANA Administration Thiamine HCl 100 mg 12/02/17 10:00 12/05/17 10:25 Vitamin B1 Tab GT 100 mg DAILY ANA Administration - Patient Studies Lab Studies: Microbiology Studies 12/02/17 15:20 Gram Stain - Final Cerebral Spinal Fluid CSF Culture - Preliminary NO GROWTH AFTER 3 DAYS 12/01/17 10:50 S.aureus & Coag-Neg Staph PNA FISH - Final Blood Blood Culture - Final Methicillin Resistant S Aureus Gram Stain - Final 12/01/17 11:25 Blood Culture - Final Blood Staphylococcus Epidermidis Gram Stain - Final Lab Studies 12/05/17 12/05/17 12/05/17 Range/Units 18:08 12:06 11:49 WBC (4.8-10.8) K/uL RBC (4.40-5.90) Mil/uL Hgb (12.0-18.0) g/dL Hct (35.0-51.0) % MCV (80.0-94.0) fL MCH (27.0-31.0) pg MCHC (33.0-37.0) g/dL RDW (11.5-14.5) % Plt Count (130-400) K/uL MPV (7.2-11.7) fL Neut % (Auto) (50.0-75.0) % Lymph % (Auto) (20.0-40.0) % [place] % (Auto) (0.0-10.0) % Eos % (Auto) (0.0-4.0) % Baso % (Auto) (0.0-2.0) % Neut # (Auto) (1.8-7.0) K/uL Lymph # (Auto) (1.0-4.3) K/uL [place] # (Auto) (0.0-0.8) K/uL Eos # (Auto) (0.0-0.7) K/uL Baso # (Auto) (0.0-0.2) K/uL Neutrophils % (Manual) (50-75) % Band Neutrophils % (0-2) % Lymphocytes % (Manual) (20-40) % Monocytes % (Manual) (0-10) % Platelet Estimate (NORMAL) Hypochromasia (manual) Poikilocytosis (manual Anisocytosis (manual) Tear Drop Cells [place] Cells Puncture Site pCO2 (35-45) mm/Hg pO2 (80-100) mm/Hg HCO3 (21-28) mmol/L ABG pH (7.35-7.45) ABG Total CO2 (22-28) mmol/L ABG O2 Saturation (95-98) % ABG Base Excess (-2.0-3.0) mmol/L ABG Hemoglobin (11.7-17.4) g/dL ABG Carboxyhemoglobin (0.5-1.5) % POC ABG HHb (Measured) (0.0-5.0) % ABG Methemoglobin (0.0-3.0) % [place]viz Test A-a O2 Difference mm/Hg Respiratory Index Hgb O2 Saturation (95.0-98.0) % Vent Mode Mechanical Rate FiO2 % Tidal Volume PEEP Sodium (132-148) mmol/L Potassium (3.6-5.2) mmol/L Chloride (98-107) mmol/L Carbon Dioxide (22-30) mmol/L Anion Gap (10-20) BUN (9-20) mg/dL Creatinine (0.8-1.5) mg/dL Est GFR ( Amer) Est GFR (Non-Af Amer) POC Glucose (mg/dL) 319 H (65-110) mg/dL Random Glucose (75-110) mg/dL Calcium (8.6-10.4) mg/dl Phosphorus (2.5-4.5) mg/dL Magnesium (1.6-2.3) mg/dL Total Bilirubin (0.2-1.3) mg/dL AST (17-59) U/L ALT (21-72) U/L Alkaline Phosphatase (38-126) U/L Total Protein (6.3-8.3) g/dL Albumin (3.5-5.0) g/dL Globulin (2.2-3.9) gm/dL Albumin/Globulin Ratio (1.0-2.1) Procalcitonin 3.19 H (0.19-0.49) NG/ML Urine Color (YELLOW) Urine Clarity (Clear) Urine pH (5.0-8.0) Ur Specific [place] (1.003-1.030) Urine Protein (NEGATIVE) mg/dL Urine Glucose (UA) (Normal) mg/dL Urine Ketones (NEGATIVE) mg/dL Urine Blood (NEGATIVE) Urine Nitrate (NEGATIVE) Urine Bilirubin (NEGATIVE) Urine Urobilinogen (0.2-1.0) mg/dL Ur Leukocyte Esterase (Negative) Keyur/uL Urine WBC (Auto) (0-5) /hpf Urine RBC (Auto) (0-3) /hpf Urine WBC Clumps (Auto) (NONE) /hpf Ur Squamous Epith Cells (0-5) /hpf Urine Bacteria (<OCC) Urine Yeast (Budding) (NEGATIVE) /hpf Urine Eosinophils Negative (NEGATIVE) CSF Cryptococcus Ag (Not Detected) Random Vancomycin ug/mL 12/05/17 12/05/17 12/05/17 Range/Units 11:16 06:28 06:28 WBC (4.8-10.8) K/uL RBC (4.40-5.90) Mil/uL Hgb (12.0-18.0) g/dL Hct (35.0-51.0) % MCV (80.0-94.0) fL MCH (27.0-31.0) pg MCHC (33.0-37.0) g/dL RDW (11.5-14.5) % Plt Count (130-400) K/uL MPV (7.2-11.7) fL Neut % (Auto) (50.0-75.0) % Lymph % (Auto) (20.0-40.0) % [place] % (Auto) (0.0-10.0) % Eos % (Auto) (0.0-4.0) % Baso % (Auto) (0.0-2.0) % Neut # (Auto) (1.8-7.0) K/uL Lymph # (Auto) (1.0-4.3) K/uL [place] # (Auto) (0.0-0.8) K/uL Eos # (Auto) (0.0-0.7) K/uL Baso # (Auto) (0.0-0.2) K/uL Neutrophils % (Manual) (50-75) % Band Neutrophils % (0-2) % Lymphocytes % (Manual) (20-40) % Monocytes % (Manual) (0-10) % Platelet Estimate (NORMAL) Hypochromasia (manual) Poikilocytosis (manual Anisocytosis (manual) Tear Drop Cells [place] Cells Puncture Site pCO2 (35-45) mm/Hg pO2 (80-100) mm/Hg HCO3 (21-28) mmol/L ABG pH (7.35-7.45) ABG Total CO2 (22-28) mmol/L ABG O2 Saturation (95-98) % ABG Base Excess (-2.0-3.0) mmol/L ABG Hemoglobin (11.7-17.4) g/dL ABG Carboxyhemoglobin (0.5-1.5) % POC ABG HHb (Measured) (0.0-5.0) % ABG Methemoglobin (0.0-3.0) % [place]viz Test A-a O2 Difference mm/Hg Respiratory Index Hgb O2 Saturation (95.0-98.0) % Vent Mode Mechanical Rate FiO2 % Tidal Volume PEEP Sodium 144 (132-148) mmol/L Potassium 3.9 (3.6-5.2) mmol/L Chloride 112 H (98-107) mmol/L Carbon Dioxide 20 L (22-30) mmol/L Anion Gap 16 (10-20) BUN 79 H (9-20) mg/dL Creatinine 2.9 H (0.8-1.5) mg/dL Est GFR ( Amer) 25 Est GFR (Non-Af Amer) 21 POC Glucose (mg/dL) 255 H (65-110) mg/dL Random Glucose 253 H (75-110) mg/dL Calcium 7.0 L (8.6-10.4) mg/dl Phosphorus 4.6 H (2.5-4.5) mg/dL Magnesium 1.8 (1.6-2.3) mg/dL Total Bilirubin 0.2 (0.2-1.3) mg/dL AST 30 (17-59) U/L ALT 40 (21-72) U/L Alkaline Phosphatase 97 (38-126) U/L Total Protein 4.9 L (6.3-8.3) g/dL Albumin 2.3 L (3.5-5.0) g/dL Globulin 2.6 (2.2-3.9) gm/dL Albumin/Globulin Ratio 0.9 L (1.0-2.1) Procalcitonin (0.19-0.49) NG/ML Urine Color (YELLOW) Urine Clarity (Clear) Urine pH (5.0-8.0) Ur Specific [place] (1.003-1.030) Urine Protein (NEGATIVE) mg/dL Urine Glucose (UA) (Normal) mg/dL Urine Ketones (NEGATIVE) mg/dL Urine Blood (NEGATIVE) Urine Nitrate (NEGATIVE) Urine Bilirubin (NEGATIVE) Urine Urobilinogen (0.2-1.0) mg/dL Ur Leukocyte Esterase (Negative) Keyur/uL Urine WBC (Auto) (0-5) /hpf Urine RBC (Auto) (0-3) /hpf Urine WBC Clumps (Auto) (NONE) /hpf Ur Squamous Epith Cells (0-5) /hpf Urine Bacteria (<OCC) Urine Yeast (Budding) (NEGATIVE) /hpf Urine Eosinophils (NEGATIVE) CSF Cryptococcus Ag (Not Detected) Random Vancomycin ug/mL 12/05/17 12/05/17 12/05/17 Range/Units 06:28 05:38 05:30 WBC 13.3 H (4.8-10.8) K/uL RBC 3.25 L (4.40-5.90) Mil/uL Hgb 8.6 L (12.0-18.0) g/dL Hct 26.3 L (35.0-51.0) % MCV 81.2 (80.0-94.0) fL MCH 26.6 L (27.0-31.0) pg MCHC 32.8 L (33.0-37.0) g/dL RDW 16.7 H (11.5-14.5) % Plt Count 178 (130-400) K/uL MPV 10.9 (7.2-11.7) fL Neut % (Auto) 93.3 H (50.0-75.0) % Lymph % (Auto) 2.1 L (20.0-40.0) % [place] % (Auto) 4.4 (0.0-10.0) % Eos % (Auto) 0.1 (0.0-4.0) % Baso % (Auto) 0.1 (0.0-2.0) % Neut # (Auto) 12.4 H (1.8-7.0) K/uL Lymph # (Auto) 0.3 L (1.0-4.3) K/uL [place] # (Auto) 0.6 (0.0-0.8) K/uL Eos # (Auto) 0.0 (0.0-0.7) K/uL Baso # (Auto) 0.0 (0.0-0.2) K/uL Neutrophils % (Manual) 94 H (50-75) % Band Neutrophils % 1 (0-2) % Lymphocytes % (Manual) 2 L (20-40) % Monocytes % (Manual) 3 (0-10) % Platelet Estimate Normal (NORMAL) Hypochromasia (manual) Slight Poikilocytosis (manual Slight Anisocytosis (manual) Slight Tear Drop Cells Slight [place] Cells Slight Puncture Site Lr pCO2 30 L (35-45) mm/Hg pO2 136 H (80-100) mm/Hg HCO3 20.7 L (21-28) mmol/L ABG pH 7.40 (7.35-7.45) ABG Total CO2 19.5 L (22-28) mmol/L ABG O2 Saturation 99.7 H (95-98) % ABG Base Excess -5.5 L (-2.0-3.0) mmol/L ABG Hemoglobin 8.6 L (11.7-17.4) g/dL ABG Carboxyhemoglobin 1.5 (0.5-1.5) % POC ABG HHb (Measured) 0.3 (0.0-5.0) % ABG Methemoglobin 1.0 (0.0-3.0) % [place]viz Test Pos A-a O2 Difference 183.0 mm/Hg Respiratory Index 1.3 Hgb O2 Saturation 97.2 (95.0-98.0) % Vent Mode Prvc Mechanical Rate 16 FiO2 50.0 % Tidal Volume 450 PEEP 5 Sodium (132-148) mmol/L Potassium (3.6-5.2) mmol/L Chloride (98-107) mmol/L Carbon Dioxide (22-30) mmol/L Anion Gap (10-20) BUN (9-20) mg/dL Creatinine (0.8-1.5) mg/dL Est GFR ( Amer) Est GFR (Non-Af Amer) POC Glucose (mg/dL) 295 H (65-110) mg/dL Random Glucose (75-110) mg/dL Calcium (8.6-10.4) mg/dl Phosphorus (2.5-4.5) mg/dL Magnesium (1.6-2.3) mg/dL Total Bilirubin (0.2-1.3) mg/dL AST (17-59) U/L ALT (21-72) U/L Alkaline Phosphatase (38-126) U/L Total Protein (6.3-8.3) g/dL Albumin (3.5-5.0) g/dL Globulin (2.2-3.9) gm/dL Albumin/Globulin Ratio (1.0-2.1) Procalcitonin (0.19-0.49) NG/ML Urine Color (YELLOW) Urine Clarity (Clear) Urine pH (5.0-8.0) Ur Specific [place] (1.003-1.030) Urine Protein (NEGATIVE) mg/dL Urine Glucose (UA) (Normal) mg/dL Urine Ketones (NEGATIVE) mg/dL Urine Blood (NEGATIVE) Urine Nitrate (NEGATIVE) Urine Bilirubin (NEGATIVE) Urine Urobilinogen (0.2-1.0) mg/dL Ur Leukocyte Esterase (Negative) Keyur/uL Urine WBC (Auto) (0-5) /hpf Urine RBC (Auto) (0-3) /hpf Urine WBC Clumps (Auto) (NONE) /hpf Ur Squamous Epith Cells (0-5) /hpf Urine Bacteria (<OCC) Urine Yeast (Budding) (NEGATIVE) /hpf Urine Eosinophils (NEGATIVE) CSF Cryptococcus Ag (Not Detected) Random Vancomycin ug/mL 12/05/17 12/05/17 12/04/17 Range/Units 01:06 00:59 23:44 WBC (4.8-10.8) K/uL RBC (4.40-5.90) Mil/uL Hgb (12.0-18.0) g/dL Hct (35.0-51.0) % MCV (80.0-94.0) fL MCH (27.0-31.0) pg MCHC (33.0-37.0) g/dL RDW (11.5-14.5) % Plt Count (130-400) K/uL MPV (7.2-11.7) fL Neut % (Auto) (50.0-75.0) % Lymph % (Auto) (20.0-40.0) % [place] % (Auto) (0.0-10.0) % Eos % (Auto) (0.0-4.0) % Baso % (Auto) (0.0-2.0) % Neut # (Auto) (1.8-7.0) K/uL Lymph # (Auto) (1.0-4.3) K/uL [place] # (Auto) (0.0-0.8) K/uL Eos # (Auto) (0.0-0.7) K/uL Baso # (Auto) (0.0-0.2) K/uL Neutrophils % (Manual) (50-75) % Band Neutrophils % (0-2) % Lymphocytes % (Manual) (20-40) % Monocytes % (Manual) (0-10) % Platelet Estimate (NORMAL) Hypochromasia (manual) Poikilocytosis (manual Anisocytosis (manual) Tear Drop Cells [place] Cells Puncture Site pCO2 (35-45) mm/Hg pO2 (80-100) mm/Hg HCO3 (21-28) mmol/L ABG pH (7.35-7.45) ABG Total CO2 (22-28) mmol/L ABG O2 Saturation (95-98) % ABG Base Excess (-2.0-3.0) mmol/L ABG Hemoglobin (11.7-17.4) g/dL ABG Carboxyhemoglobin (0.5-1.5) % POC ABG HHb (Measured) (0.0-5.0) % ABG Methemoglobin (0.0-3.0) % [place] Test A-a O2 Difference mm/Hg Respiratory Index Hgb O2 Saturation (95.0-98.0) % Vent Mode Mechanical Rate FiO2 % Tidal Volume PEEP Sodium (132-148) mmol/L Potassium (3.6-5.2) mmol/L Chloride (98-107) mmol/L Carbon Dioxide (22-30) mmol/L Anion Gap (10-20) BUN (9-20) mg/dL Creatinine (0.8-1.5) mg/dL Est GFR ( Amer) Est GFR (Non-Af Amer) POC Glucose (mg/dL) 220 H (65-110) mg/dL Random Glucose (75-110) mg/dL Calcium (8.6-10.4) mg/dl Phosphorus (2.5-4.5) mg/dL Magnesium (1.6-2.3) mg/dL Total Bilirubin (0.2-1.3) mg/dL AST (17-59) U/L ALT (21-72) U/L Alkaline Phosphatase (38-126) U/L Total Protein (6.3-8.3) g/dL Albumin (3.5-5.0) g/dL Globulin (2.2-3.9) gm/dL Albumin/Globulin Ratio (1.0-2.1) Procalcitonin (0.19-0.49) NG/ML Urine Color Yellow (YELLOW) Urine Clarity Hazy (Clear) Urine pH 5.0 (5.0-8.0) Ur Specific [place] 1.017 (1.003-1.030) Urine Protein 2+ H (NEGATIVE) mg/dL Urine Glucose (UA) 1+ H (Normal) mg/dL Urine Ketones Negative (NEGATIVE) mg/dL Urine Blood 2+ H (NEGATIVE) Urine Nitrate Negative (NEGATIVE) Urine Bilirubin Negative (NEGATIVE) Urine Urobilinogen Normal (0.2-1.0) mg/dL Ur Leukocyte Esterase Neg (Negative) Keyur/uL Urine WBC (Auto) 31 H (0-5) /hpf Urine RBC (Auto) 77 H (0-3) /hpf Urine WBC Clumps (Auto) Many H (NONE) /hpf Ur Squamous Epith Cells < 1 (0-5) /hpf Urine Bacteria Rare (<OCC) Urine Yeast (Budding) Many H (NEGATIVE) /hpf Urine Eosinophils (NEGATIVE) CSF Cryptococcus Ag (Not Detected) Random Vancomycin 20.70 ug/mL 12/02/17 Range/Units 15:32 WBC (4.8-10.8) K/uL RBC (4.40-5.90) Mil/uL Hgb (12.0-18.0) g/dL Hct (35.0-51.0) % MCV (80.0-94.0) fL MCH (27.0-31.0) pg MCHC (33.0-37.0) g/dL RDW (11.5-14.5) % Plt Count (130-400) K/uL MPV (7.2-11.7) fL Neut % (Auto) (50.0-75.0) % Lymph % (Auto) (20.0-40.0) % [place] % (Auto) (0.0-10.0) % Eos % (Auto) (0.0-4.0) % Baso % (Auto) (0.0-2.0) % Neut # (Auto) (1.8-7.0) K/uL Lymph # (Auto) (1.0-4.3) K/uL [place] # (Auto) (0.0-0.8) K/uL Eos # (Auto) (0.0-0.7) K/uL Baso # (Auto) (0.0-0.2) K/uL Neutrophils % (Manual) (50-75) % Band Neutrophils % (0-2) % Lymphocytes % (Manual) (20-40) % Monocytes % (Manual) (0-10) % Platelet Estimate (NORMAL) Hypochromasia (manual) Poikilocytosis (manual Anisocytosis (manual) Tear Drop Cells [place] Cells Puncture Site pCO2 (35-45) mm/Hg pO2 (80-100) mm/Hg HCO3 (21-28) mmol/L ABG pH (7.35-7.45) ABG Total CO2 (22-28) mmol/L ABG O2 Saturation (95-98) % ABG Base Excess (-2.0-3.0) mmol/L ABG Hemoglobin (11.7-17.4) g/dL ABG Carboxyhemoglobin (0.5-1.5) % POC ABG HHb (Measured) (0.0-5.0) % ABG Methemoglobin (0.0-3.0) % [place] Test A-a O2 Difference mm/Hg Respiratory Index Hgb O2 Saturation (95.0-98.0) % Vent Mode Mechanical Rate FiO2 % Tidal Volume PEEP Sodium (132-148) mmol/L Potassium (3.6-5.2) mmol/L Chloride (98-107) mmol/L Carbon Dioxide (22-30) mmol/L Anion Gap (10-20) BUN (9-20) mg/dL Creatinine (0.8-1.5) mg/dL Est GFR ( Amer) Est GFR (Non-Af Amer) POC Glucose (mg/dL) (65-110) mg/dL Random Glucose (75-110) mg/dL Calcium (8.6-10.4) mg/dl Phosphorus (2.5-4.5) mg/dL Magnesium (1.6-2.3) mg/dL Total Bilirubin (0.2-1.3) mg/dL AST (17-59) U/L ALT (21-72) U/L Alkaline Phosphatase (38-126) U/L Total Protein (6.3-8.3) g/dL Albumin (3.5-5.0) g/dL Globulin (2.2-3.9) gm/dL Albumin/Globulin Ratio (1.0-2.1) Procalcitonin (0.19-0.49) NG/ML Urine Color (YELLOW) Urine Clarity (Clear) Urine pH (5.0-8.0) Ur Specific [place] (1.003-1.030) Urine Protein (NEGATIVE) mg/dL Urine Glucose (UA) (Normal) mg/dL Urine Ketones (NEGATIVE) mg/dL Urine Blood (NEGATIVE) Urine Nitrate (NEGATIVE) Urine Bilirubin (NEGATIVE) Urine Urobilinogen (0.2-1.0) mg/dL Ur Leukocyte Esterase (Negative) Keyur/uL Urine WBC (Auto) (0-5) /hpf Urine RBC (Auto) (0-3) /hpf Urine WBC Clumps (Auto) (NONE) /hpf Ur Squamous Epith Cells (0-5) /hpf Urine Bacteria (<OCC) Urine Yeast (Budding) (NEGATIVE) /hpf Urine Eosinophils (NEGATIVE) CSF Cryptococcus Ag Not detected (Not Detected) Random Vancomycin ug/mL Laboratory Results - last 24 hr 12/02/17 12/04/17 12/05/17 15:32 23:44 00:59 WBC RBC Hgb Hct MCV MCH MCHC RDW Plt Count MPV Neut % (Auto) Lymph % (Auto) [place] % (Auto) Eos % (Auto) Baso % (Auto) Neut # (Auto) Lymph # (Auto) [place] # (Auto) Eos # (Auto) Baso # (Auto) Neutrophils % (Manual) Band Neutrophils % Lymphocytes % (Manual) Monocytes % (Manual) Platelet Estimate Hypochromasia (manual) Poikilocytosis (manual Anisocytosis (manual) Tear Drop Cells [place] Cells Puncture Site pCO2 pO2 HCO3 ABG pH ABG Total CO2 ABG O2 Saturation ABG Base Excess ABG Hemoglobin ABG Carboxyhemoglobin POC ABG HHb (Measured) ABG Methemoglobin [place]viz Test A-a O2 Difference Respiratory Index Hgb O2 Saturation Vent Mode Mechanical Rate FiO2 Tidal Volume PEEP Sodium Potassium Chloride Carbon Dioxide Anion Gap BUN Creatinine Est GFR ( Amer) Est GFR (Non-Af Amer) POC Glucose (mg/dL) 220 H Random Glucose Calcium Phosphorus Magnesium Total Bilirubin AST ALT Alkaline Phosphatase Total Protein Albumin Globulin Albumin/Globulin Ratio Procalcitonin Urine Color Urine Clarity Urine pH Ur Specific [place] Urine Protein Urine Glucose (UA) Urine Ketones Urine Blood Urine Nitrate Urine Bilirubin Urine Urobilinogen Ur Leukocyte Esterase Urine WBC (Auto) Urine RBC (Auto) Urine WBC Clumps (Auto) Ur Squamous Epith Cells Urine Bacteria Urine Yeast (Budding) Urine Eosinophils CSF Cryptococcus Ag Not detected Random Vancomycin 20.70 12/05/17 12/05/17 12/05/17 01:06 05:30 05:38 WBC RBC Hgb Hct MCV MCH MCHC RDW Plt Count MPV Neut % (Auto) Lymph % (Auto) [place] % (Auto) Eos % (Auto) Baso % (Auto) Neut # (Auto) Lymph # (Auto) [place] # (Auto) Eos # (Auto) Baso # (Auto) Neutrophils % (Manual) Band Neutrophils % Lymphocytes % (Manual) Monocytes % (Manual) Platelet Estimate Hypochromasia (manual) Poikilocytosis (manual Anisocytosis (manual) Tear Drop Cells [place]anni Cells Puncture Site Lr pCO2 30 L pO2 136 H HCO3 20.7 L ABG pH 7.40 ABG Total CO2 19.5 L ABG O2 Saturation 99.7 H ABG Base Excess -5.5 L ABG Hemoglobin 8.6 L ABG Carboxyhemoglobin 1.5 POC ABG HHb (Measured) 0.3 ABG Methemoglobin 1.0 [place] Test Pos A-a O2 Difference 183.0 Respiratory Index 1.3 Hgb O2 Saturation 97.2 Vent Mode Prvc Mechanical Rate 16 FiO2 50.0 Tidal Volume 450 PEEP 5 Sodium Potassium Chloride Carbon Dioxide Anion Gap BUN Creatinine Est GFR ( Amer) Est GFR (Non-Af Amer) POC Glucose (mg/dL) 295 H Random Glucose Calcium Phosphorus Magnesium Total Bilirubin AST ALT Alkaline Phosphatase Total Protein Albumin Globulin Albumin/Globulin Ratio Procalcitonin Urine Color Yellow Urine Clarity Hazy Urine pH 5.0 Ur Specific [place] 1.017 Urine Protein 2+ H Urine Glucose (UA) 1+ H Urine Ketones Negative Urine Blood 2+ H Urine Nitrate Negative Urine Bilirubin Negative Urine Urobilinogen Normal Ur Leukocyte Esterase Neg Urine WBC (Auto) 31 H Urine RBC (Auto) 77 H Urine WBC Clumps (Auto) Many H Ur Squamous Epith Cells < 1 Urine Bacteria Rare Urine Yeast (Budding) Many H Urine Eosinophils CSF Cryptococcus Ag Random Vancomycin 12/05/17 12/05/17 12/05/17 06:28 06:28 06:28 WBC 13.3 H RBC 3.25 L Hgb 8.6 L Hct 26.3 L MCV 81.2 MCH 26.6 L MCHC 32.8 L RDW 16.7 H Plt Count 178 MPV 10.9 Neut % (Auto) 93.3 H Lymph % (Auto) 2.1 L [place] % (Auto) 4.4 Eos % (Auto) 0.1 Baso % (Auto) 0.1 Neut # (Auto) 12.4 H Lymph # (Auto) 0.3 L [place] # (Auto) 0.6 Eos # (Auto) 0.0 Baso # (Auto) 0.0 Neutrophils % (Manual) 94 H Band Neutrophils % 1 Lymphocytes % (Manual) 2 L Monocytes % (Manual) 3 Platelet Estimate Normal Hypochromasia (manual) Slight Poikilocytosis (manual Slight Anisocytosis (manual) Slight Tear Drop Cells Slight [place]anni Cells Slight Puncture Site pCO2 pO2 HCO3 ABG pH ABG Total CO2 ABG O2 Saturation ABG Base Excess ABG Hemoglobin ABG Carboxyhemoglobin POC ABG HHb (Measured) ABG Methemoglobin Parviz Test A-a O2 Difference Respiratory Index Hgb O2 Saturation Vent Mode Mechanical Rate FiO2 Tidal Volume PEEP Sodium 144 Potassium 3.9 Chloride 112 H Carbon Dioxide 20 L Anion Gap 16 BUN 79 H Creatinine 2.9 H Est GFR ( Amer) 25 Est GFR (Non-Af Amer) 21 POC Glucose (mg/dL) Random Glucose 253 H Calcium 7.0 L Phosphorus 4.6 H Magnesium 1.8 Total Bilirubin 0.2 AST 30 ALT 40 Alkaline Phosphatase 97 Total Protein 4.9 L Albumin 2.3 L Globulin 2.6 Albumin/Globulin Ratio 0.9 L Procalcitonin Urine Color Urine Clarity Urine pH Ur Specific [place] Urine Protein Urine Glucose (UA) Urine Ketones Urine Blood Urine Nitrate Urine Bilirubin Urine Urobilinogen Ur Leukocyte Esterase Urine WBC (Auto) Urine RBC (Auto) Urine WBC Clumps (Auto) Ur Squamous Epith Cells Urine Bacteria Urine Yeast (Budding) Urine Eosinophils CSF Cryptococcus Ag Random Vancomycin 12/05/17 12/05/17 12/05/17 11:16 11:49 12:06 WBC RBC Hgb Hct MCV MCH MCHC RDW Plt Count MPV Neut % (Auto) Lymph % (Auto) [place] % (Auto) Eos % (Auto) Baso % (Auto) Neut # (Auto) Lymph # (Auto) [place] # (Auto) Eos # (Auto) Baso # (Auto) Neutrophils % (Manual) Band Neutrophils % Lymphocytes % (Manual) Monocytes % (Manual) Platelet Estimate Hypochromasia (manual) Poikilocytosis (manual Anisocytosis (manual) Tear Drop Cells Danni Cells Puncture Site pCO2 pO2 HCO3 ABG pH ABG Total CO2 ABG O2 Saturation ABG Base Excess ABG Hemoglobin ABG Carboxyhemoglobin POC ABG HHb (Measured) ABG Methemoglobin Parviz Test A-a O2 Difference Respiratory Index Hgb O2 Saturation Vent Mode Mechanical Rate FiO2 Tidal Volume PEEP Sodium Potassium Chloride Carbon Dioxide Anion Gap BUN Creatinine Est GFR ( Amer) Est GFR (Non-Af Amer) POC Glucose (mg/dL) 255 H Random Glucose Calcium Phosphorus Magnesium Total Bilirubin AST ALT Alkaline Phosphatase Total Protein Albumin Globulin Albumin/Globulin Ratio Procalcitonin 3.19 H Urine Color Urine Clarity Urine pH Ur Specific [place] Urine Protein Urine Glucose (UA) Urine Ketones Urine Blood Urine Nitrate Urine Bilirubin Urine Urobilinogen Ur Leukocyte Esterase Urine WBC (Auto) Urine RBC (Auto) Urine WBC Clumps (Auto) Ur Squamous Epith Cells Urine Bacteria Urine Yeast (Budding) Urine Eosinophils Negative CSF Cryptococcus Ag Random Vancomycin 12/05/17 18:08 WBC RBC Hgb Hct MCV MCH MCHC RDW Plt Count MPV Neut % (Auto) Lymph % (Auto) [place] % (Auto) Eos % (Auto) Baso % (Auto) Neut # (Auto) Lymph # (Auto) [place] # (Auto) Eos # (Auto) Baso # (Auto) Neutrophils % (Manual) Band Neutrophils % Lymphocytes % (Manual) Monocytes % (Manual) Platelet Estimate Hypochromasia (manual) Poikilocytosis (manual Anisocytosis (manual) Tear Drop Cells [place] Cells Puncture Site pCO2 pO2 HCO3 ABG pH ABG Total CO2 ABG O2 Saturation ABG Base Excess ABG Hemoglobin ABG Carboxyhemoglobin POC ABG HHb (Measured) ABG Methemoglobin Parviz Test A-a O2 Difference Respiratory Index Hgb O2 Saturation Vent Mode Mechanical Rate FiO2 Tidal Volume PEEP Sodium Potassium Chloride Carbon Dioxide Anion Gap BUN Creatinine Est GFR ( Amer) Est GFR (Non-Af Amer) POC Glucose (mg/dL) 319 H Random Glucose Calcium Phosphorus Magnesium Total Bilirubin AST ALT Alkaline Phosphatase Total Protein Albumin Globulin Albumin/Globulin Ratio Procalcitonin Urine Color Urine Clarity Urine pH Ur Specific [place] Urine Protein Urine Glucose (UA) Urine Ketones Urine Blood Urine Nitrate Urine Bilirubin Urine Urobilinogen Ur Leukocyte Esterase Urine WBC (Auto) Urine RBC (Auto) Urine WBC Clumps (Auto) Ur Squamous Epith Cells Urine Bacteria Urine Yeast (Budding) Urine Eosinophils CSF Cryptococcus Ag Random Vancomycin Attending/Attestation - Attestation I have personally seen and examined this patient.: Yes I have fully participated in the care of the patient.: Yes I have reviewed all pertinent clinical information: Yes Notes (Text): 12/05/17 18:26 patient seen and examined n the intensive care unit. remained intubated on ventilatory support continue antibiotics for pneumonia assessment and martín per resident note
--- NOTE | 2017-12-05 13:27 | CP.PCM.PN ---
Subjective - Date & Time of Evaluation Date of Evaluation: 12/05/17 Time of Evaluation: 13:27 Objective - Vital Signs/Intake and Output Vital Signs (last 24 hours): Temp Pulse Resp BP Pulse Ox 99.1 F 86 23 128/44 L 94 L 12/05/17 04:00 12/05/17 12:01 12/05/17 12:01 12/05/17 12:01 12/05/17 12:01 Intake and Output: 12/05/17 12/05/17 06:59 18:59 Intake Total 1763.4 1250 Output Total 170 240 Balance 1593.4 1010 - Medications Medications: Current Medications Acetaminophen (Tylenol 650mg/20.3ml Solution Ud) 650 mg PO Q6 PRN PRN Reason: fever Last Admin: 12/04/17 15:26 Dose: 650 mg Aspirin (Aspirin Chewable) 81 mg PO DAILY [facility] Last Admin: 12/05/17 10:29 Dose: 81 mg Bisacodyl (Dulcolax) 10 mg [place] Q24H PRN PRN Reason: Constipation Diltiazem HCl (Cardizem) 60 mg PO Q6 [facility] Last Admin: 12/05/17 11:04 Dose: 60 mg Folic Acid (Folic Acid) 1 mg PO DAILY [facility] Last Admin: 12/05/17 10:25 Dose: 1 mg Heparin Sodium (Porcine) (Heparin) 5,000 units SC Q8 [facility] Last Admin: 12/05/17 05:16 Dose: 5,000 units Hydrocortisone Sodium Succinate (Solu-Cortef) 100 mg IV Q8H [facility] Last Admin: 12/05/17 10:56 Dose: 100 mg Doxycycline Hyclate 100 mg/ (Sodium Chloride) 100 mls @ 100 mls/hr IVPB Q12H [facility] Last Admin: 12/05/17 11:45 Dose: 100 mls/hr Phenylephrine HCl 90 mg/ (Sodium Chloride) 259 mls @ 3.45 mls/hr IV .Q24H PRN; Protocol; 20 MCG/MIN PRN Reason: TITRATE PER MD ORDER Last Titration: 12/04/17 23:00 Dose: 0 mcg/min, 0 mls/hr Sodium Bicarbonate 150 meq/ (Dextrose) 1,150 mls @ 75 mls/hr IV .[id number] [facility] Last Admin: 12/05/17 00:59 Dose: 75 mls/hr Linezolid (Zyvox 600mg/300ml D5w) 600 mg in 300 mls @ 200 mls/hr IVPB Q12 [facility] Last Admin: 12/05/17 10:31 Dose: 200 mls/hr Aztreonam 1 gm/ Sodium (Chloride) 100 mls @ 100 mls/hr IVPB Q12H [facility] Insulin Aspart (Novolog) 0 unit SC Q6 [facility] PRN Reason: Protocol Last Admin: 12/05/17 11:42 Dose: 4 unit Latanoprost (Xalatan Opht) 0 ml OD HS [facility] Last Admin: 12/04/17 21:14 Dose: 2.5 ml Pantoprazole Sodium (Protonix Inj) 40 mg IVP DAILY [facility] Last Admin: 12/05/17 10:28 Dose: 40 mg Rosuvastatin Calcium (Crestor) 5 mg PO HS [facility] Last Admin: 12/04/17 21:14 Dose: 5 mg Sucralfate (Carafate Oral Susp) 1 gm PO TID [facility] Last Admin: 12/05/17 10:25 Dose: 1 gm Thiamine HCl (Vitamin B1 Tab) 100 mg GT DAILY [facility] Last Admin: 12/05/17 10:25 Dose: 100 mg - Labs Labs: 12/05/17 06:28 12/05/17 06:28 PT 12.9 SECONDS (9.7-12.2) H 12/01/17 13:39 INR 1.15 (0.92-1.08) H 12/01/17 13:39 APTT 73 SECONDS (21-34) H D 12/04/17 06:38
[2017-12-05] MEDS: Aztreonam 1 GM in Sodium Chloride 0.9% 100 ML IVPB SCH (13:30)
--- NOTE | 2017-12-05 17:13 | CP.PCM.PN ---
Subjective - Date & Time of Evaluation Date of Evaluation: 12/05/17 Time of Evaluation: 12:20 - Subjective Subjective: clinically same Objective - Vital Signs/Intake and Output Vital Signs (last 24 hours): Temp Pulse Resp BP Pulse Ox 100 F H 130 H 23 107/68 94 L 12/05/17 16:00 12/05/17 16:00 12/05/17 16:00 12/05/17 16:00 12/05/17 16:00 Intake and Output: 12/05/17 12/05/17 06:59 18:59 Intake Total 1763.4 1850 Output Total 170 470 Balance 1593.4 1380 - Medications Medications: Current Medications Acetaminophen (Tylenol 650mg/20.3ml Solution Ud) 650 mg PO Q6 PRN PRN Reason: fever Last Admin: 12/04/17 15:26 Dose: 650 mg Aspirin (Aspirin Chewable) 81 mg PO DAILY [facility] Last Admin: 12/05/17 10:29 Dose: 81 mg Bisacodyl (Dulcolax) 10 mg [place] Q24H PRN PRN Reason: Constipation Diltiazem HCl (Cardizem) 60 mg PO Q6 [facility] Last Admin: 12/05/17 17:09 Dose: 60 mg Folic Acid (Folic Acid) 1 mg PO DAILY [facility] Last Admin: 12/05/17 10:25 Dose: 1 mg Heparin Sodium (Porcine) (Heparin) 5,000 units SC Q8 [facility] Last Admin: 12/05/17 14:13 Dose: 5,000 units Hydrocortisone Sodium Succinate (Solu-Cortef) 100 mg IV Q8H [facility] Last Admin: 12/05/17 10:56 Dose: 100 mg Doxycycline Hyclate 100 mg/ (Sodium Chloride) 100 mls @ 100 mls/hr IVPB Q12H [facility] Last Admin: 12/05/17 11:45 Dose: 100 mls/hr Phenylephrine HCl 90 mg/ (Sodium Chloride) 259 mls @ 3.45 mls/hr IV .Q24H PRN; Protocol; 20 MCG/MIN PRN Reason: TITRATE PER MD ORDER Last Titration: 12/04/17 23:00 Dose: 0 mcg/min, 0 mls/hr Sodium Bicarbonate 150 meq/ (Dextrose) 1,150 mls @ 75 mls/hr IV .[id number] [facility] Last Admin: 12/05/17 14:13 Dose: 75 mls/hr Linezolid (Zyvox 600mg/300ml D5w) 600 mg in 300 mls @ 200 mls/hr IVPB Q12 [facility] Last Admin: 12/05/17 10:31 Dose: 200 mls/hr Aztreonam 1 gm/ Sodium (Chloride) 100 mls @ 100 mls/hr IVPB Q12H [facility] Last Admin: 12/05/17 13:30 Dose: 100 mls/hr Insulin Aspart (Novolog) 0 unit SC Q6 [facility] PRN Reason: Protocol Last Admin: 12/05/17 11:42 Dose: 4 unit Latanoprost (Xalatan Opht) 0 ml OD HS [facility] Last Admin: 12/04/17 21:14 Dose: 2.5 ml Pantoprazole Sodium (Protonix Inj) 40 mg IVP DAILY [facility] Last Admin: 12/05/17 10:28 Dose: 40 mg Rosuvastatin Calcium (Crestor) 5 mg PO HS [facility] Last Admin: 12/04/17 21:14 Dose: 5 mg Sucralfate (Carafate Oral Susp) 1 gm PO TID [facility] Last Admin: 12/05/17 17:09 Dose: 1 gm Thiamine HCl (Vitamin B1 Tab) 100 mg GT DAILY [facility] Last Admin: 12/05/17 10:25 Dose: 100 mg - Labs Labs: 12/05/17 06:28 12/05/17 06:28 PT 12.9 SECONDS (9.7-12.2) H 12/01/17 13:39 INR 1.15 (0.92-1.08) H 12/01/17 13:39 APTT 73 SECONDS (21-34) H D 12/04/17 06:38 - Constitutional Appears: Well - Head Exam Head Exam: ATRAUMATIC, NORMAL INSPECTION, NORMOCEPHALIC - Eye Exam Eye Exam: EOMI, Normal appearance, PERRL Pupil Exam: NORMAL ACCOMODATION, PERRL - ENT Exam ENT Exam: Mucous Membranes Moist, Normal Exam - Neck Exam Neck Exam: Full ROM, Normal Inspection. absent: Lymphadenopathy - Respiratory Exam Respiratory Exam: Decreased Breath Sounds - Cardiovascular Exam Cardiovascular Exam: REGULAR RHYTHM, +S1, +S2 - GI/Abdominal Exam GI & Abdominal Exam: Soft, Diminished Bowel Sounds - Rectal Exam Rectal Exam: Deferred Assessment and Plan (1) Bandemia Status: Acute (2) Dyspnea Status: Acute (3) Fever Status: Acute (4) Lethargy Status: Acute (5) Sepsis Status: Acute (6) Contusion Status: Acute (7) Fall Status: Acute
[2017-12-05] MEDS: Latanoprost 2.5 ml Opht Soln OD SCH (22:24)
[2017-12-06] MEDS: (Novolog) Insulin Aspart, Recombinant 100 u/ml 10 ml vial SC SCH ×4 (00:30→18:05)
[2017-12-06] MEDS: Aztreonam 1 GM in Sodium Chloride 0.9% 100 ML IVPB SCH ×2 (00:53→12:39)
[2017-12-06] MEDS: Sodium Bicarbonate 8.4% 150 MEQ in Dextrose 5% In Water 1,000 ML IV SCH ×2 (05:00→09:13)
[2017-12-06 05:33] LABS: ABG ALLEN TEST POS; ARTERIAL BLOOD GAS HCO3 23.4 mmol/L (21-28); ARTERIAL BLOOD GAS HEMOGLOBIN 8.4 g/dL (11.7-17.4); ARTERIAL BLOOD GAS O2 SAT 99.8 % (95-98); ARTERIAL BLOOD GAS PCO2 33 mm/Hg (35-45); ARTERIAL BLOOD GAS PH 7.43 (7.35-7.45); ARTERIAL BLOOD GAS PO2 120 mm/Hg (80-100); ARTERIAL BLOOD GAS TCO2 22.9 mmol/L (22-28)
[2017-12-06 06:51] LABS: BASO % 0.1 % (0.0-2.0); HEMOGLOBIN 8.6 g/dL (12.0-18.0); LYMPH # 0.4 K/uL (1.0-4.3); LYMPH % 4.1 % (20.0-40.0); MEAN CELL VOLUME 80.4 fL (80.0-94.0); MEAN CORPUSCULAR HEMOGLOBIN 26.7 pg (27.0-31.0); MEAN CORPUSCULAR HGB CONC 33.3 g/dL (33.0-37.0); MEAN PLATELET VOLUME 10.8 fL (7.2-11.7); MONO # 0.5 K/uL (0.0-0.8); MONO % 4.4 % (0.0-10.0); NEUT # 9.8 K/uL (1.8-7.0); NEUT % 91.4 % (50.0-75.0); NRBC % 0.1 % (0.0-2.0); PLATELET COUNT 179 K/uL (130-400); RED CELL DISTRIBUTION WIDTH 16.7 % (11.5-14.5); WHITE BLOOD COUNT 10.7 K/uL (4.8-10.8)
[2017-12-06 07:05] LABS: ALB/GLOB RATIO 0.9 (1.0-2.1); ALBUMIN 2.4 g/dL (3.5-5.0); MAGNESIUM 1.8 mg/dL (1.6-2.3)
--- NOTE | 2017-12-06 07:05 | CP.PCM.PN ---
Subjective - Date & Time of Evaluation Date of Evaluation: 12/06/17 Time of Evaluation: 07:02 - Subjective Subjective: Mr. Yoon was seen and examined at the bedside in ICU. He remains on mechanical ventilator. He response to pain stimuli with facial grimacing. He is able to move his upper extremities spontaneously with trace of movement of his right lower extremity. His upper extremities are swollen, currently receiving sodium bicarb. and with moderate amount of urine noted. His heart rate of tachycardia on medication. There was no untoward events overnight. Objective - Vital Signs/Intake and Output Vital Signs (last 24 hours): Temp Pulse Resp BP Pulse Ox 99.1 F 123 H 20 122/75 100 12/05/17 20:00 12/06/17 03:00 12/06/17 03:00 12/06/17 03:00 12/06/17 00:00 Intake and Output: 12/06/17 12/06/17 06:59 18:59 Intake Total 1485 Output Total 595 Balance 890 - Medications Medications: Current Medications Acetaminophen (Tylenol 650mg/20.3ml Solution Ud) 650 mg PO Q6 PRN PRN Reason: fever Last Admin: 12/04/17 15:26 Dose: 650 mg Aspirin (Aspirin Chewable) 81 mg PO DAILY [facility] Last Admin: 12/05/17 10:29 Dose: 81 mg Bisacodyl (Dulcolax) 10 mg [place] Q24H PRN PRN Reason: Constipation Diltiazem HCl (Cardizem) 60 mg PO Q6 [facility] Last Admin: 12/06/17 06:40 Dose: 60 mg Folic Acid (Folic Acid) 1 mg PO DAILY [facility] Last Admin: 12/05/17 10:25 Dose: 1 mg Heparin Sodium (Porcine) (Heparin) 5,000 units SC Q8 [facility] Last Admin: 12/06/17 06:40 Dose: 5,000 units Hydrocortisone Sodium Succinate (Solu-Cortef) 100 mg IV Q8H [facility] Last Admin: 12/06/17 04:18 Dose: 100 mg Doxycycline Hyclate 100 mg/ (Sodium Chloride) 100 mls @ 100 mls/hr IVPB Q12H [facility] Last Admin: 12/06/17 00:27 Dose: 100 mls/hr Phenylephrine HCl 90 mg/ (Sodium Chloride) 259 mls @ 3.45 mls/hr IV .Q24H PRN; Protocol; 20 MCG/MIN PRN Reason: TITRATE PER MD ORDER Last Titration: 12/04/17 23:00 Dose: 0 mcg/min, 0 mls/hr Sodium Bicarbonate 150 meq/ (Dextrose) 1,150 mls @ 75 mls/hr IV .[id number] [facility] Last Admin: 12/06/17 05:00 Dose: Not Given Linezolid (Zyvox 600mg/300ml D5w) 600 mg in 300 mls @ 200 mls/hr IVPB Q12 [facility] Last Admin: 12/05/17 22:25 Dose: 200 mls/hr Aztreonam 1 gm/ Sodium (Chloride) 100 mls @ 100 mls/hr IVPB Q12H [facility] Last Admin: 12/06/17 00:53 Dose: 100 mls/hr Insulin Aspart (Novolog) 0 unit SC Q6 [facility] PRN Reason: Protocol Last Admin: 12/06/17 00:30 Dose: 8 unit Latanoprost (Xalatan Opht) 0 ml OD HS [facility] Last Admin: 12/05/17 22:24 Dose: 2.5 ml Pantoprazole Sodium (Protonix Inj) 40 mg IVP DAILY [facility] Last Admin: 12/05/17 10:28 Dose: 40 mg Rosuvastatin Calcium (Crestor) 5 mg PO HS [facility] Last Admin: 12/05/17 22:24 Dose: 5 mg Sucralfate (Carafate Oral Susp) 1 gm PO TID [facility] Last Admin: 12/05/17 17:09 Dose: 1 gm Thiamine HCl (Vitamin B1 Tab) 100 mg GT DAILY [facility] Last Admin: 12/05/17 10:25 Dose: 100 mg - Labs Labs: 12/06/17 06:45 12/05/17 06:28 PT 12.9 SECONDS (9.7-12.2) H 12/01/17 13:39 INR 1.15 (0.92-1.08) H 12/01/17 13:39 APTT 73 SECONDS (21-34) H D 12/04/17 06:38 - Constitutional Appears: No Acute Distress - Head Exam Head Exam: NORMAL INSPECTION - Neurological Exam Neuro motor strength exam: Left Upper Extremity: 2/1, Right Upper Extremity: 2/1 , Left Lower Extremity: 0, Right Lower Extremity: 0 Additional comments: Neurological unchanged from previous examination. Assessment and Plan (1) Sepsis Assessment & Plan: Case discussed with Dr. Mosher, continue all current medical regimen. Recommend to treat any electrolyte abnormalities. Status: Acute
[2017-12-06 08:26] LABS: CREATININE, RANDOM URINE 57.5 mg/dL
--- NOTE | 2017-12-06 09:41 | RAD ---
HISTORY: intubated COMPARISON: Comparison made with chest radiograph and CT scan chest dated 12/05 and 12/04/2017 respectively. FINDINGS: In situ ETT, tip of which lies approximately 4.77 cm above dg. No change right IJ central venous line with tip in the SVC. LUNGS: Re- demonstrated is right apical lobe opacity which appears to represent pneumonia based on prior CT scan findings. Bilateral effusions right larger than left. Suspect mild left basilar atelectasis. PLEURA: No significant pleural effusion identified, no pneumothorax apparent. CARDIOVASCULAR: Normal. OSSEOUS STRUCTURES: No significant abnormalities. VISUALIZED UPPER ABDOMEN: Normal. OTHER FINDINGS: None. IMPRESSION: ETT and right IJ central line unchanged. Re- demonstrated is right apical lobe opacity which appears to represent pneumonia based on prior CT scan findings. Bilateral effusions right larger than left. Suspect mild left basilar atelectasis.
[2017-12-06 09:51] LABS: LYMPHOCYTE 5 % (20-40); MONOCYTE 4 % (0-10); MYELOCYTE 1 % (0-0); NEUTROPHIL 90 % (50-75); NUCLEATED RED BLOOD CELL 1 % (0-0); PLATELET ESTIMATE NORMAL (NORMAL); TOTAL CELLS COUNTED 100
[2017-12-06 09:52] LABS: ANISOCYTOSIS SLIGHT; HYPOCHROMIC SLIGHT; POIKILOCYTOSIS SLIGHT
[2017-12-06] MEDS: Sucralfate 1 gm/10 ml Oral Susp UD PO SCH ×3 (10:14→18:04)
[2017-12-06] MEDS: Linezolid 600 mg in D5W 300 ml 600 MG/300 ML BAG IVPB SCH ×2 (10:15→21:20)
[2017-12-06] MEDS ORDERED: Metoprolol 1 mg/ml Inj IVP PRN (11:00)
--- NOTE | 2017-12-06 11:31 | CP.CCUPN ---
<Jas Rockwell - Last Filed: 12/06/17 15:56> CCU Subjective - Physician Review Events Since Last Encounter (Free Text): 12/06/17 11:32 Per nursing no acute events occurred overnight. Subjective (Free Text): 12/06/17 11:39 Patient seen and examined at bedside this A.M. Per nursing no acute events overnight. Patient scheduled for HD 12/07/17. Critical Care Time Spent (in minutes): 40 CCU Objective - Vital Signs / Intake & Output Vital Signs (Last 4 hours): Vital Signs Temp Pulse Resp BP Pulse Ox 12/06/17 10:00 132 H 23 146/89 97 12/06/17 08:00 98.5 F Intake and Output (Last 8hrs): Intake & Output 12/05/17 12/06/17 12/06/17 22:59 06:59 14:59 Intake Total 1060 1400 800 Output Total 465 670 340 Balance 595 730 460 Weight 189 lb Intake: Intake, IV Amount 600 800 600 R IJ medial sideport 200 Right Distal Port 300 Internal Jugular Right Proximal Port 600 600 300 Internal Jugular Tube Feeding 400 400 200 Other 60 200 Output: Urine 465 670 340 Urethral (Morgan) 465 670 340 Other: # Bowel Movements 0 0 0 - Physical Exam Head: Positive for: Atraumatic, Normocephalic Pupils: Positive for: PERRL Cardiovascular: Positive for: Normal S1, S2, Tachycardic Abdomen: Positive for: Normal Bowel Sounds. Negative for: Peritoneal Signs Upper Extremity: Positive for: Normal Inspection Lower Extremity: Positive for: Normal Inspection Neurological: Negative for: GCS=15, CN II-XII Intact - Medications Active Medications: Active Medications Generic Name Dose Route Start Last Admin Trade Name Freq PRN Reason Stop Dose Admin Acetaminophen 650 mg 12/02/17 07:49 12/04/17 15:26 Tylenol 650mg/20.3ml Solution Ud PO 650 mg Q6 PRN Administration fever Aspirin 81 mg 12/02/17 10:00 12/06/17 10:14 Aspirin Chewable PO 81 mg DAILY ANA Administration Bisacodyl 10 mg 12/03/17 11:57 Dulcolax NV Q24H PRN Constipation Diltiazem HCl 60 mg 12/05/17 12:00 12/06/17 06:40 Cardizem PO 60 mg Q6 ANA Administration Folic Acid 1 mg 12/02/17 10:00 12/06/17 10:14 Folic Acid PO 1 mg DAILY ANA Administration Heparin Sodium (Porcine) 5,000 units 12/04/17 14:00 12/06/17 06:40 Heparin SC 5,000 units Q8 ANA Administration Hydrocortisone Sodium Succinate 100 mg 12/03/17 11:45 12/06/17 04:18 Solu-Cortef IV 100 mg Q8H ANA Administration Doxycycline Hyclate 100 mg/ 100 mls @ 100 mls/hr 12/03/17 12:30 12/06/17 00: 27 Sodium Chloride IVPB 100 mls/hr Q12H ANA Administration Sodium Bicarbonate 150 meq/ 1,150 mls @ 75 mls/hr 12/04/17 07:00 12/06/17 09: 13 Dextrose IV 75 mls/hr .[id number] ANA Administration Linezolid 600 mg in 300 mls @ 200 mls/hr 12/05/17 10:00 12/06/17 10:15 Zyvox 600mg/300ml D5w IVPB 200 mls/hr Q12 ANA Administration Aztreonam 1 gm/ Sodium 100 mls @ 100 mls/hr 12/05/17 13:00 12/06/17 00:53 Chloride IVPB 100 mls/hr Q12H ANA Administration Potassium Chloride 20 meq in 100 mls @ 50 mls/hr 12/06/17 10:57 12/06/17 11: 09 Potassium Chloride 20 Meq/100 Ml IVPB 12/06/17 12:56 50 mls/hr ONCE ONE Administration Insulin Aspart 0 unit 12/06/17 12:00 Novolog SC Q6 [facility] Protocol Latanoprost 0 ml 12/01/17 23:45 12/05/17 22:24 Xalatan Opht OD 2.5 ml HS ANA Administration Metoprolol Tartrate 5 mg 12/06/17 11:00 Lopressor IVP Q6H PRN Systolic Blood Pressure Pantoprazole Sodium 40 mg 12/04/17 10:30 12/06/17 11:08 Protonix Inj IVP 40 mg DAILY ANA Administration Rosuvastatin Calcium 5 mg 12/01/17 22:00 12/05/17 22:24 Crestor PO 5 mg HS ANA Administration Sucralfate 1 gm 12/03/17 18:00 12/06/17 10:14 Carafate Oral Susp PO 1 gm TID ANA Administration Thiamine HCl 100 mg 12/02/17 10:00 12/06/17 10:14 Vitamin B1 Tab GT 100 mg DAILY ANA Administration - Patient Studies Lab Studies: Microbiology Studies 12/02/17 15:20 Gram Stain - Final Cerebral Spinal Fluid CSF Culture - Preliminary NO GROWTH AFTER 3 DAYS 12/01/17 10:50 S.aureus & Coag-Neg Staph PNA FISH - Final Blood Blood Culture - Final Methicillin Resistant S Aureus Gram Stain - Final 12/01/17 11:25 Blood Culture - Final Blood Staphylococcus Epidermidis Gram Stain - Final Lab Studies 12/06/17 12/06/17 12/06/17 Range/Units 07:58 06:45 06:45 WBC 10.7 (4.8-10.8) K/uL RBC 3.20 L (4.40-5.90) Mil/uL Hgb 8.6 L (12.0-18.0) g/dL Hct 25.7 L (35.0-51.0) % MCV 80.4 (80.0-94.0) fL MCH 26.7 L (27.0-31.0) pg MCHC 33.3 (33.0-37.0) g/dL RDW 16.7 H (11.5-14.5) % Plt Count 179 (130-400) K/uL MPV 10.8 (7.2-11.7) fL Neut % (Auto) 91.4 H (50.0-75.0) % Lymph % (Auto) 4.1 L (20.0-40.0) % [place] % (Auto) 4.4 (0.0-10.0) % Eos % (Auto) 0.0 (0.0-4.0) % Baso % (Auto) 0.1 (0.0-2.0) % Neut # (Auto) 9.8 H (1.8-7.0) K/uL Lymph # (Auto) 0.4 L (1.0-4.3) K/uL [place] # (Auto) 0.5 (0.0-0.8) K/uL Eos # (Auto) 0.0 (0.0-0.7) K/uL Baso # (Auto) 0.0 (0.0-0.2) K/uL Neutrophils % (Manual) 90 H (50-75) % Lymphocytes % (Manual) 5 L (20-40) % Monocytes % (Manual) 4 (0-10) % Myelocytes % 1 H (0-0) % Nucleated RBC % 1 H (0-0) % Platelet Estimate Normal (NORMAL) Hypochromasia (manual) Slight Poikilocytosis (manual Slight Anisocytosis (manual) Slight Puncture Site pCO2 (35-45) mm/Hg pO2 (80-100) mm/Hg HCO3 (21-28) mmol/L ABG pH (7.35-7.45) ABG Total CO2 (22-28) mmol/L ABG O2 Saturation (95-98) % ABG Base Excess (-2.0-3.0) mmol/L ABG Hemoglobin (11.7-17.4) g/dL ABG Carboxyhemoglobin (0.5-1.5) % POC ABG HHb (Measured) (0.0-5.0) % ABG Methemoglobin (0.0-3.0) % Parviz Test A-a O2 Difference mm/Hg Respiratory Index Hgb O2 Saturation (95.0-98.0) % Vent Mode Mechanical Rate FiO2 % Tidal Volume PEEP Sodium 142 (132-148) mmol/L Potassium 3.5 L (3.6-5.2) mmol/L Chloride 108 H (98-107) mmol/L Carbon Dioxide 21 L (22-30) mmol/L Anion Gap 16 (10-20) BUN 93 H (9-20) mg/dL Creatinine 2.9 H (0.8-1.5) mg/dL Est GFR ( Amer) 25 Est GFR (Non-Af Amer) 21 POC Glucose (mg/dL) (65-110) mg/dL Random Glucose 280 H (75-110) mg/dL Calcium 7.0 L (8.6-10.4) mg/dl Phosphorus 4.5 (2.5-4.5) mg/dL Magnesium 1.8 (1.6-2.3) mg/dL Total Bilirubin 0.4 (0.2-1.3) mg/dL AST 31 (17-59) U/L ALT 44 (21-72) U/L Alkaline Phosphatase 92 (38-126) U/L Total Protein 4.9 L (6.3-8.3) g/dL Albumin 2.4 L (3.5-5.0) g/dL Globulin 2.5 (2.2-3.9) gm/dL Albumin/Globulin Ratio 0.9 L (1.0-2.1) Procalcitonin (0.19-0.49) NG/ML Urine Eosinophils (NEGATIVE) Ur Random Creatinine 57.5 mg/dL U Random Total Protein (22-128) mg/g creat Ur Random Sodium 33 mmol/L 12/06/17 12/06/17 12/06/17 Range/Units 06:44 06:21 05:07 WBC (4.8-10.8) K/uL RBC (4.40-5.90) Mil/uL Hgb (12.0-18.0) g/dL Hct (35.0-51.0) % MCV (80.0-94.0) fL MCH (27.0-31.0) pg MCHC (33.0-37.0) g/dL RDW (11.5-14.5) % Plt Count (130-400) K/uL MPV (7.2-11.7) fL Neut % (Auto) (50.0-75.0) % Lymph % (Auto) (20.0-40.0) % [place] % (Auto) (0.0-10.0) % Eos % (Auto) (0.0-4.0) % Baso % (Auto) (0.0-2.0) % Neut # (Auto) (1.8-7.0) K/uL Lymph # (Auto) (1.0-4.3) K/uL [place] # (Auto) (0.0-0.8) K/uL Eos # (Auto) (0.0-0.7) K/uL Baso # (Auto) (0.0-0.2) K/uL Neutrophils % (Manual) (50-75) % Lymphocytes % (Manual) (20-40) % Monocytes % (Manual) (0-10) % Myelocytes % (0-0) % Nucleated RBC % (0-0) % Platelet Estimate (NORMAL) Hypochromasia (manual) Poikilocytosis (manual Anisocytosis (manual) Puncture Site Lr pCO2 33 L (35-45) mm/Hg pO2 120 H (80-100) mm/Hg HCO3 23.4 (21-28) mmol/L ABG pH 7.43 (7.35-7.45) ABG Total CO2 22.9 (22-28) mmol/L ABG O2 Saturation 99.8 H (95-98) % ABG Base Excess -2.0 (-2.0-3.0) mmol/L ABG Hemoglobin 8.4 L (11.7-17.4) g/dL ABG Carboxyhemoglobin 1.7 H (0.5-1.5) % POC ABG HHb (Measured) 0.2 (0.0-5.0) % ABG Methemoglobin 0.9 (0.0-3.0) % Parviz Test Pos A-a O2 Difference 195.0 mm/Hg Respiratory Index 1.6 Hgb O2 Saturation 97.3 (95.0-98.0) % Vent Mode Prvc Mechanical Rate 16 FiO2 50.0 % Tidal Volume 450 PEEP 5 Sodium (132-148) mmol/L Potassium (3.6-5.2) mmol/L Chloride (98-107) mmol/L Carbon Dioxide (22-30) mmol/L Anion Gap (10-20) BUN (9-20) mg/dL Creatinine (0.8-1.5) mg/dL Est GFR ( Amer) Est GFR (Non-Af Amer) POC Glucose (mg/dL) 283 H 300 H (65-110) mg/dL Random Glucose (75-110) mg/dL Calcium (8.6-10.4) mg/dl Phosphorus (2.5-4.5) mg/dL Magnesium (1.6-2.3) mg/dL Total Bilirubin (0.2-1.3) mg/dL AST (17-59) U/L ALT (21-72) U/L Alkaline Phosphatase (38-126) U/L Total Protein (6.3-8.3) g/dL Albumin (3.5-5.0) g/dL Globulin (2.2-3.9) gm/dL Albumin/Globulin Ratio (1.0-2.1) Procalcitonin (0.19-0.49) NG/ML Urine Eosinophils (NEGATIVE) Ur Random Creatinine mg/dL U Random Total Protein (22-128) mg/g creat Ur Random Sodium mmol/L 12/05/17 12/05/17 12/05/17 Range/Units 23:50 18:08 12:06 WBC (4.8-10.8) K/uL RBC (4.40-5.90) Mil/uL Hgb (12.0-18.0) g/dL Hct (35.0-51.0) % MCV (80.0-94.0) fL MCH (27.0-31.0) pg MCHC (33.0-37.0) g/dL RDW (11.5-14.5) % Plt Count (130-400) K/uL MPV (7.2-11.7) fL Neut % (Auto) (50.0-75.0) % Lymph % (Auto) (20.0-40.0) % [place] % (Auto) (0.0-10.0) % Eos % (Auto) (0.0-4.0) % Baso % (Auto) (0.0-2.0) % Neut # (Auto) (1.8-7.0) K/uL Lymph # (Auto) (1.0-4.3) K/uL [place] # (Auto) (0.0-0.8) K/uL Eos # (Auto) (0.0-0.7) K/uL Baso # (Auto) (0.0-0.2) K/uL Neutrophils % (Manual) (50-75) % Lymphocytes % (Manual) (20-40) % Monocytes % (Manual) (0-10) % Myelocytes % (0-0) % Nucleated RBC % (0-0) % Platelet Estimate (NORMAL) Hypochromasia (manual) Poikilocytosis (manual Anisocytosis (manual) Puncture Site pCO2 (35-45) mm/Hg pO2 (80-100) mm/Hg HCO3 (21-28) mmol/L ABG pH (7.35-7.45) ABG Total CO2 (22-28) mmol/L ABG O2 Saturation (95-98) % ABG Base Excess (-2.0-3.0) mmol/L ABG Hemoglobin (11.7-17.4) g/dL ABG Carboxyhemoglobin (0.5-1.5) % POC ABG HHb (Measured) (0.0-5.0) % ABG Methemoglobin (0.0-3.0) % Parviz Test A-a O2 Difference mm/Hg Respiratory Index Hgb O2 Saturation (95.0-98.0) % Vent Mode Mechanical Rate FiO2 % Tidal Volume PEEP Sodium (132-148) mmol/L Potassium (3.6-5.2) mmol/L Chloride (98-107) mmol/L Carbon Dioxide (22-30) mmol/L Anion Gap (10-20) BUN (9-20) mg/dL Creatinine (0.8-1.5) mg/dL Est GFR ( Amer) Est GFR (Non-Af Amer) POC Glucose (mg/dL) 356 H 319 H (65-110) mg/dL Random Glucose (75-110) mg/dL Calcium (8.6-10.4) mg/dl Phosphorus (2.5-4.5) mg/dL Magnesium (1.6-2.3) mg/dL Total Bilirubin (0.2-1.3) mg/dL AST (17-59) U/L ALT (21-72) U/L Alkaline Phosphatase (38-126) U/L Total Protein (6.3-8.3) g/dL Albumin (3.5-5.0) g/dL Globulin (2.2-3.9) gm/dL Albumin/Globulin Ratio (1.0-2.1) Procalcitonin 3.19 H (0.19-0.49) NG/ML Urine Eosinophils (NEGATIVE) Ur Random Creatinine mg/dL U Random Total Protein (22-128) mg/g creat Ur Random Sodium mmol/L 12/05/17 12/05/17 12/05/17 Range/Units 11:49 11:16 08:07 WBC (4.8-10.8) K/uL RBC (4.40-5.90) Mil/uL Hgb (12.0-18.0) g/dL Hct (35.0-51.0) % MCV (80.0-94.0) fL MCH (27.0-31.0) pg MCHC (33.0-37.0) g/dL RDW (11.5-14.5) % Plt Count (130-400) K/uL MPV (7.2-11.7) fL Neut % (Auto) (50.0-75.0) % Lymph % (Auto) (20.0-40.0) % [place] % (Auto) (0.0-10.0) % Eos % (Auto) (0.0-4.0) % Baso % (Auto) (0.0-2.0) % Neut # (Auto) (1.8-7.0) K/uL Lymph # (Auto) (1.0-4.3) K/uL [place] # (Auto) (0.0-0.8) K/uL Eos # (Auto) (0.0-0.7) K/uL Baso # (Auto) (0.0-0.2) K/uL Neutrophils % (Manual) (50-75) % Lymphocytes % (Manual) (20-40) % Monocytes % (Manual) (0-10) % Myelocytes % (0-0) % Nucleated RBC % (0-0) % Platelet Estimate (NORMAL) Hypochromasia (manual) Poikilocytosis (manual Anisocytosis (manual) Puncture Site pCO2 (35-45) mm/Hg pO2 (80-100) mm/Hg HCO3 (21-28) mmol/L ABG pH (7.35-7.45) ABG Total CO2 (22-28) mmol/L ABG O2 Saturation (95-98) % ABG Base Excess (-2.0-3.0) mmol/L ABG Hemoglobin (11.7-17.4) g/dL ABG Carboxyhemoglobin (0.5-1.5) % POC ABG HHb (Measured) (0.0-5.0) % ABG Methemoglobin (0.0-3.0) % Parviz Test A-a O2 Difference mm/Hg Respiratory Index Hgb O2 Saturation (95.0-98.0) % Vent Mode Mechanical Rate FiO2 % Tidal Volume PEEP Sodium (132-148) mmol/L Potassium (3.6-5.2) mmol/L Chloride (98-107) mmol/L Carbon Dioxide (22-30) mmol/L Anion Gap (10-20) BUN (9-20) mg/dL Creatinine (0.8-1.5) mg/dL Est GFR ( Amer) Est GFR (Non-Af Amer) POC Glucose (mg/dL) 255 H (65-110) mg/dL Random Glucose (75-110) mg/dL Calcium (8.6-10.4) mg/dl Phosphorus (2.5-4.5) mg/dL Magnesium (1.6-2.3) mg/dL Total Bilirubin (0.2-1.3) mg/dL AST (17-59) U/L ALT (21-72) U/L Alkaline Phosphatase (38-126) U/L Total Protein (6.3-8.3) g/dL Albumin (3.5-5.0) g/dL Globulin (2.2-3.9) gm/dL Albumin/Globulin Ratio (1.0-2.1) Procalcitonin (0.19-0.49) NG/ML Urine Eosinophils Negative (NEGATIVE) Ur Random Creatinine mg/dL U Random Total Protein 2551 H (22-128) mg/g creat Ur Random Sodium mmol/L Laboratory Results - last 24 hr 12/05/17 12/05/17 12/05/17 08:07 11:16 11:49 WBC RBC Hgb Hct MCV MCH MCHC RDW Plt Count MPV Neut % (Auto) Lymph % (Auto) [place] % (Auto) Eos % (Auto) Baso % (Auto) Neut # (Auto) Lymph # (Auto) [place] # (Auto) Eos # (Auto) Baso # (Auto) Neutrophils % (Manual) Lymphocytes % (Manual) Monocytes % (Manual) Myelocytes % Nucleated RBC % Platelet Estimate Hypochromasia (manual) Poikilocytosis (manual Anisocytosis (manual) Puncture Site pCO2 pO2 HCO3 ABG pH ABG Total CO2 ABG O2 Saturation ABG Base Excess ABG Hemoglobin ABG Carboxyhemoglobin POC ABG HHb (Measured) ABG Methemoglobin Parviz Test A-a O2 Difference Respiratory Index Hgb O2 Saturation Vent Mode Mechanical Rate FiO2 Tidal Volume PEEP Sodium Potassium Chloride Carbon Dioxide Anion Gap BUN Creatinine Est GFR ( Amer) Est GFR (Non-Af Amer) POC Glucose (mg/dL) 255 H Random Glucose Calcium Phosphorus Magnesium Total Bilirubin AST ALT Alkaline Phosphatase Total Protein Albumin Globulin Albumin/Globulin Ratio Procalcitonin Urine Eosinophils Negative Ur Random Creatinine U Random Total Protein 2551 H Ur Random Sodium 12/05/17 12/05/17 12/05/17 12:06 18:08 23:50 WBC RBC Hgb Hct MCV MCH MCHC RDW Plt Count MPV Neut % (Auto) Lymph % (Auto) [place] % (Auto) Eos % (Auto) Baso % (Auto) Neut # (Auto) Lymph # (Auto) [place] # (Auto) Eos # (Auto) Baso # (Auto) Neutrophils % (Manual) Lymphocytes % (Manual) Monocytes % (Manual) Myelocytes % Nucleated RBC % Platelet Estimate Hypochromasia (manual) Poikilocytosis (manual Anisocytosis (manual) Puncture Site pCO2 pO2 HCO3 ABG pH ABG Total CO2 ABG O2 Saturation ABG Base Excess ABG Hemoglobin ABG Carboxyhemoglobin POC ABG HHb (Measured) ABG Methemoglobin Parviz Test A-a O2 Difference Respiratory Index Hgb O2 Saturation Vent Mode Mechanical Rate FiO2 Tidal Volume PEEP Sodium Potassium Chloride Carbon Dioxide Anion Gap BUN Creatinine Est GFR ( Amer) Est GFR (Non-Af Amer) POC Glucose (mg/dL) 319 H 356 H Random Glucose Calcium Phosphorus Magnesium Total Bilirubin AST ALT Alkaline Phosphatase Total Protein Albumin Globulin Albumin/Globulin Ratio Procalcitonin 3.19 H Urine Eosinophils Ur Random Creatinine U Random Total Protein Ur Random Sodium 12/06/17 12/06/17 12/06/17 05:07 06:21 06:44 WBC RBC Hgb Hct MCV MCH MCHC RDW Plt Count MPV Neut % (Auto) Lymph % (Auto) [place] % (Auto) Eos % (Auto) Baso % (Auto) Neut # (Auto) Lymph # (Auto) [place] # (Auto) Eos # (Auto) Baso # (Auto) Neutrophils % (Manual) Lymphocytes % (Manual) Monocytes % (Manual) Myelocytes % Nucleated RBC % Platelet Estimate Hypochromasia (manual) Poikilocytosis (manual Anisocytosis (manual) Puncture Site Lr pCO2 33 L pO2 120 H HCO3 23.4 ABG pH 7.43 ABG Total CO2 22.9 ABG O2 Saturation 99.8 H ABG Base Excess -2.0 ABG Hemoglobin 8.4 L ABG Carboxyhemoglobin 1.7 H POC ABG HHb (Measured) 0.2 ABG Methemoglobin 0.9 Parviz Test Pos A-a O2 Difference 195.0 Respiratory Index 1.6 Hgb O2 Saturation 97.3 Vent Mode Prvc Mechanical Rate 16 FiO2 50.0 Tidal Volume 450 PEEP 5 Sodium Potassium Chloride Carbon Dioxide Anion Gap BUN Creatinine Est GFR ( Amer) Est GFR (Non-Af Amer) POC Glucose (mg/dL) 300 H 283 H Random Glucose Calcium Phosphorus Magnesium Total Bilirubin AST ALT Alkaline Phosphatase Total Protein Albumin Globulin Albumin/Globulin Ratio Procalcitonin Urine Eosinophils Ur Random Creatinine U Random Total Protein Ur Random Sodium 12/06/17 12/06/17 12/06/17 06:45 06:45 07:58 WBC 10.7 RBC 3.20 L Hgb 8.6 L Hct 25.7 L MCV 80.4 MCH 26.7 L MCHC 33.3 RDW 16.7 H Plt Count 179 MPV 10.8 Neut % (Auto) 91.4 H Lymph % (Auto) 4.1 L [place] % (Auto) 4.4 Eos % (Auto) 0.0 Baso % (Auto) 0.1 Neut # (Auto) 9.8 H Lymph # (Auto) 0.4 L [place] # (Auto) 0.5 Eos # (Auto) 0.0 Baso # (Auto) 0.0 Neutrophils % (Manual) 90 H Lymphocytes % (Manual) 5 L Monocytes % (Manual) 4 Myelocytes % 1 H Nucleated RBC % 1 H Platelet Estimate Normal Hypochromasia (manual) Slight Poikilocytosis (manual Slight Anisocytosis (manual) Slight Puncture Site pCO2 pO2 HCO3 ABG pH ABG Total CO2 ABG O2 Saturation ABG Base Excess ABG Hemoglobin ABG Carboxyhemoglobin POC ABG HHb (Measured) ABG Methemoglobin Parviz Test A-a O2 Difference Respiratory Index Hgb O2 Saturation Vent Mode Mechanical Rate FiO2 Tidal Volume PEEP Sodium 142 Potassium 3.5 L Chloride 108 H Carbon Dioxide 21 L Anion Gap 16 BUN 93 H Creatinine 2.9 H Est GFR ( Amer) 25 Est GFR (Non-Af Amer) 21 POC Glucose (mg/dL) Random Glucose 280 H Calcium 7.0 L Phosphorus 4.5 Magnesium 1.8 Total Bilirubin 0.4 AST 31 ALT 44 Alkaline Phosphatase 92 Total Protein 4.9 L Albumin 2.4 L Globulin 2.5 Albumin/Globulin Ratio 0.9 L Procalcitonin Urine Eosinophils Ur Random Creatinine 57.5 U Random Total Protein Ur Random Sodium 33 Fingerstick Blood Sugar Results: 283 Review of Systems - EENT Eyes: absent: Blurred Vision, Discharge, Loss of Peripheral Vision, Sees Flashes , Loss of Vision Ears: absent: Ear Discharge, Dizziness Nose/Mouth/Throat: absent: Nasal Congestion, Nose Pain, Bleeding Gums, Odynophagia, Neck Pain - Cardiovascular Cardiovascular: absent: Chest Pain, Pedal Edema, Syncope - Respiratory Respiratory: absent: Hemoptysis, Pain on Inspiration, Change in Mucous Color - Gastrointestinal Gastrointestinal: absent: Belching, Change in Stool Character, Fecal Incontinence, Melena, Nausea, Vomiting - Genitourinary Genitourinary: absent: Pyuria, Nocturia, Urinary Hesitance, Urinary Urgency, Bladder Distension - Musculoskeletal Musculoskeletal: absent: Arthralgias, Atrophy, Myalgias, Neck Pain, Tingling - Integumentary Integumentary: absent: Bleeding Lesions, Change in Pigmentation, Lesions, Rash, Sores - Neurological Neurological: absent: Abnormal Hearing, Burning Sensations, Vertigo, Weakness - Endocrine Endocrine: absent: Change in Body Appearance, Polydipsia, Polyphagia, Polyuria - Hematologic/Lymphatic Hematologic: absent: Easy Bleeding, Easy Bruising Assessment/Plan - Assessment and Plan (Free Text) Assessment: 87 y/o male with pmx of hydrocephalus requiring a shunt who was recently admitted to [facility] for respiratory distress. Patient was transferred to [facility] and brought back to [facility] for same complaint. Plan: Respiratory distress: intubated to protect airway continue ventilation suspect VQ mismatch 2nd aspiration staph/GPC, continue bronchodilators chest ct w/o contrast showed moderate pleurel effusion, CHF vs. Portal hypertension, findings suspicious PNA in right lung apex, gallstones and fluid adjacent to gallbladder, 2.6cm density in the Right upper lobe U/S for Pleural Effusion. Results showed not enough fluid to have pigtail cath placment. Will continue to watch. CPAP trials today. Sepsis serial lactic LP reveals no WBC, non reacitive to VDRL no hydrocephalus as presusre only 5 de-escalate abx, pending HSV PCR continue vanco/aztronam/doxy repeat procal AMS EEG pending suspect chronic -continue peg tube feeds CAD/NSTEMI/P. A-fib./flutter: asa, statin. Cardizem 60mg Q6 obtain cardiology eval,monitor to keep MAP >65, Echo: EF 50%, mild to moderate concentric LVH, and mild M.R. HR controlled today Lopressor 5mg Q6 IVP PRN changed to Lopressor 5mg Q6 IVP ANA. Continue Heparin 5000 units sc q8. SIMON Creatinine 2.9 today. 2nd sepsis/hypotension avoid nephrotoxic drgus last vanco trough:16.8 Continue vancomycin, oral mucomyst DVT ppx heparin -supplement with -pud ppx pepcid MVI/vitamin C -d/c droplet meningitis ruled out/MRSA contact isolation -bgm q6hrs, novalog q6hrs cc time 35 minutes <Kraig Cook - Last Filed: 12/06/17 16:44> CCU Objective - Vital Signs / Intake & Output Vital Signs (Last 4 hours): Vital Signs Temp Pulse Resp BP Pulse Ox 12/06/17 16:00 98.9 F 134 H 27 H 137/77 99 12/06/17 15:01 134 H 30 H 179/110 H 96 12/06/17 15:00 134 H 30 H 97 12/06/17 14:01 102 H 27 H 141/79 96 12/06/17 14:00 89 27 H 86 L 12/06/17 13:02 127 H 22 142/77 96 12/06/17 13:01 126 H 27 H 97 12/06/17 13:00 135 H 29 H 97 Intake and Output (Last 8hrs): Intake & Output 12/06/17 12/06/17 12/06/17 06:59 14:59 22:59 Intake Total 1400 1525 100 Output Total 670 640 230 Balance 730 885 -130 Weight 189 lb Intake: Intake, IV Amount 800 1125 R IJ medial sideport 200 Right Distal Port 600 Internal Jugular Right Proximal Port 600 525 Internal Jugular Tube Feeding 400 400 100 Other 200 Output: Urine 670 640 230 Urethral (Morgan) 670 640 230 Other: # Bowel Movements 0 0 - Medications Active Medications: Active Medications Generic Name Dose Route Start Last Admin Trade Name Freq PRN Reason Stop Dose Admin Acetaminophen 650 mg 12/02/17 07:49 12/04/17 15:26 Tylenol 650mg/20.3ml Solution Ud PO 650 mg Q6 PRN Administration fever Aspirin 81 mg 12/02/17 10:00 12/06/17 10:14 Aspirin Chewable PO 81 mg DAILY [facility] Administration Bisacodyl 10 mg 12/03/17 11:57 Dulcolax NV Q24H PRN Constipation Diltiazem HCl 60 mg 12/05/17 12:00 12/06/17 12:15 Cardizem PO 60 mg Q6 ANA Administration Folic Acid 1 mg 12/02/17 10:00 12/06/17 10:14 Folic Acid PO 1 mg DAILY ANA Administration Heparin Sodium (Porcine) 5,000 units 12/04/17 14:00 12/06/17 15:09 Heparin SC 5,000 units Q8 ANA Administration Hydrocortisone Sodium Succinate 100 mg 12/03/17 11:45 12/06/17 12:39 Solu-Cortef IV 100 mg Q8H ANA Administration Doxycycline Hyclate 100 mg/ 100 mls @ 100 mls/hr 12/03/17 12:30 12/06/17 12: 09 Sodium Chloride IVPB 100 mls/hr Q12H ANA Administration Linezolid 600 mg in 300 mls @ 200 mls/hr 12/05/17 10:00 12/06/17 10:15 Zyvox 600mg/300ml D5w IVPB 200 mls/hr Q12 ANA Administration Aztreonam 1 gm/ Sodium 100 mls @ 100 mls/hr 12/05/17 13:00 12/06/17 12:39 Chloride IVPB 100 mls/hr Q12H ANA Administration Insulin Aspart 0 unit 12/06/17 12:00 12/06/17 12:38 Novolog SC 8 unit Q6 [facility] Administration Protocol Latanoprost 0 ml 12/01/17 23:45 12/05/17 22:24 Xalatan Opht OD 2.5 ml HS ANA Administration Metoprolol Tartrate 5 mg 12/06/17 18:00 Lopressor IVP Q6 ANA Pantoprazole Sodium 40 mg 12/04/17 10:30 12/06/17 11:08 Protonix Inj IVP 40 mg DAILY ANA Administration Rosuvastatin Calcium 5 mg 12/01/17 22:00 12/05/17 22:24 Crestor PO 5 mg HS ANA Administration Sodium Bicarbonate 650 mg 12/06/17 18:00 Sodium Bicarbonate Tab PO BID ANA Sucralfate 1 gm 12/03/17 18:00 12/06/17 15:09 Carafate Oral Susp PO 1 gm TID ANA Administration Thiamine HCl 100 mg 12/02/17 10:00 12/06/17 10:14 Vitamin B1 Tab GT 100 mg DAILY ANA Administration - Patient Studies Lab Studies: Microbiology Studies 12/02/17 15:20 Gram Stain - Final Cerebral Spinal Fluid CSF Culture - Preliminary NO GROWTH AFTER 4 DAYS Lab Studies 12/06/17 12/06/17 12/06/17 Range/Units 11:36 07:58 06:45 WBC (4.8-10.8) K/uL RBC (4.40-5.90) Mil/uL Hgb (12.0-18.0) g/dL Hct (35.0-51.0) % MCV (80.0-94.0) fL MCH (27.0-31.0) pg MCHC (33.0-37.0) g/dL RDW (11.5-14.5) % Plt Count (130-400) K/uL MPV (7.2-11.7) fL Neut % (Auto) (50.0-75.0) % Lymph % (Auto) (20.0-40.0) % [place] % (Auto) (0.0-10.0) % Eos % (Auto) (0.0-4.0) % Baso % (Auto) (0.0-2.0) % Neut # (Auto) (1.8-7.0) K/uL Lymph # (Auto) (1.0-4.3) K/uL [place] # (Auto) (0.0-0.8) K/uL Eos # (Auto) (0.0-0.7) K/uL Baso # (Auto) (0.0-0.2) K/uL Neutrophils % (Manual) (50-75) % Lymphocytes % (Manual) (20-40) % Monocytes % (Manual) (0-10) % Myelocytes % (0-0) % Nucleated RBC % (0-0) % Platelet Estimate (NORMAL) Hypochromasia (manual) Poikilocytosis (manual Anisocytosis (manual) Puncture Site pCO2 (35-45) mm/Hg pO2 (80-100) mm/Hg HCO3 (21-28) mmol/L ABG pH (7.35-7.45) ABG Total CO2 (22-28) mmol/L ABG O2 Saturation (95-98) % ABG Base Excess (-2.0-3.0) mmol/L ABG Hemoglobin (11.7-17.4) g/dL ABG Carboxyhemoglobin (0.5-1.5) % POC ABG HHb (Measured) (0.0-5.0) % ABG Methemoglobin (0.0-3.0) % Parviz Test A-a O2 Difference mm/Hg Respiratory Index Hgb O2 Saturation (95.0-98.0) % Vent Mode Mechanical Rate FiO2 % Tidal Volume PEEP Sodium 142 (132-148) mmol/L Potassium 3.5 L (3.6-5.2) mmol/L Chloride 108 H (98-107) mmol/L Carbon Dioxide 21 L (22-30) mmol/L Anion Gap 16 (10-20) BUN 93 H (9-20) mg/dL Creatinine 2.9 H (0.8-1.5) mg/dL Est GFR ( Amer) 25 Est GFR (Non-Af Amer) 21 POC Glucose (mg/dL) 310 H (65-110) mg/dL Random Glucose 280 H (75-110) mg/dL Calcium 7.0 L (8.6-10.4) mg/dl Phosphorus 4.5 (2.5-4.5) mg/dL Magnesium 1.8 (1.6-2.3) mg/dL Total Bilirubin 0.4 (0.2-1.3) mg/dL AST 31 (17-59) U/L ALT 44 (21-72) U/L Alkaline Phosphatase 92 (38-126) U/L Total Protein 4.9 L (6.3-8.3) g/dL Albumin 2.4 L (3.5-5.0) g/dL Globulin 2.5 (2.2-3.9) gm/dL Albumin/Globulin Ratio 0.9 L (1.0-2.1) Ur Random Creatinine 57.5 mg/dL U Random Total Protein (22-128) mg/g creat Ur Random Sodium 33 mmol/L 12/06/17 12/06/17 12/06/17 Range/Units 06:45 06:44 06:21 WBC 10.7 (4.8-10.8) K/uL RBC 3.20 L (4.40-5.90) Mil/uL Hgb 8.6 L (12.0-18.0) g/dL Hct 25.7 L (35.0-51.0) % MCV 80.4 (80.0-94.0) fL MCH 26.7 L (27.0-31.0) pg MCHC 33.3 (33.0-37.0) g/dL RDW 16.7 H (11.5-14.5) % Plt Count 179 (130-400) K/uL MPV 10.8 (7.2-11.7) fL Neut % (Auto) 91.4 H (50.0-75.0) % Lymph % (Auto) 4.1 L (20.0-40.0) % [place] % (Auto) 4.4 (0.0-10.0) % Eos % (Auto) 0.0 (0.0-4.0) % Baso % (Auto) 0.1 (0.0-2.0) % Neut # (Auto) 9.8 H (1.8-7.0) K/uL Lymph # (Auto) 0.4 L (1.0-4.3) K/uL [place] # (Auto) 0.5 (0.0-0.8) K/uL Eos # (Auto) 0.0 (0.0-0.7) K/uL Baso # (Auto) 0.0 (0.0-0.2) K/uL Neutrophils % (Manual) 90 H (50-75) % Lymphocytes % (Manual) 5 L (20-40) % Monocytes % (Manual) 4 (0-10) % Myelocytes % 1 H (0-0) % Nucleated RBC % 1 H (0-0) % Platelet Estimate Normal (NORMAL) Hypochromasia (manual) Slight Poikilocytosis (manual Slight Anisocytosis (manual) Slight Puncture Site pCO2 (35-45) mm/Hg pO2 (80-100) mm/Hg HCO3 (21-28) mmol/L ABG pH (7.35-7.45) ABG Total CO2 (22-28) mmol/L ABG O2 Saturation (95-98) % ABG Base Excess (-2.0-3.0) mmol/L ABG Hemoglobin (11.7-17.4) g/dL ABG Carboxyhemoglobin (0.5-1.5) % POC ABG HHb (Measured) (0.0-5.0) % ABG Methemoglobin (0.0-3.0) % Parviz Test A-a O2 Difference mm/Hg Respiratory Index Hgb O2 Saturation (95.0-98.0) % Vent Mode Mechanical Rate FiO2 % Tidal Volume PEEP Sodium (132-148) mmol/L Potassium (3.6-5.2) mmol/L Chloride (98-107) mmol/L Carbon Dioxide (22-30) mmol/L Anion Gap (10-20) BUN (9-20) mg/dL Creatinine (0.8-1.5) mg/dL Est GFR ( Amer) Est GFR (Non-Af Amer) POC Glucose (mg/dL) 283 H 300 H (65-110) mg/dL Random Glucose (75-110) mg/dL Calcium (8.6-10.4) mg/dl Phosphorus (2.5-4.5) mg/dL Magnesium (1.6-2.3) mg/dL Total Bilirubin (0.2-1.3) mg/dL AST (17-59) U/L ALT (21-72) U/L Alkaline Phosphatase (38-126) U/L Total Protein (6.3-8.3) g/dL Albumin (3.5-5.0) g/dL Globulin (2.2-3.9) gm/dL Albumin/Globulin Ratio (1.0-2.1) Ur Random Creatinine mg/dL U Random Total Protein (22-128) mg/g creat Ur Random Sodium mmol/L 12/06/17 12/05/17 12/05/17 Range/Units 05:07 23:50 18:08 WBC (4.8-10.8) K/uL RBC (4.40-5.90) Mil/uL Hgb (12.0-18.0) g/dL Hct (35.0-51.0) % MCV (80.0-94.0) fL MCH (27.0-31.0) pg MCHC (33.0-37.0) g/dL RDW (11.5-14.5) % Plt Count (130-400) K/uL MPV (7.2-11.7) fL Neut % (Auto) (50.0-75.0) % Lymph % (Auto) (20.0-40.0) % [place] % (Auto) (0.0-10.0) % Eos % (Auto) (0.0-4.0) % Baso % (Auto) (0.0-2.0) % Neut # (Auto) (1.8-7.0) K/uL Lymph # (Auto) (1.0-4.3) K/uL [place] # (Auto) (0.0-0.8) K/uL Eos # (Auto) (0.0-0.7) K/uL Baso # (Auto) (0.0-0.2) K/uL Neutrophils % (Manual) (50-75) % Lymphocytes % (Manual) (20-40) % Monocytes % (Manual) (0-10) % Myelocytes % (0-0) % Nucleated RBC % (0-0) % Platelet Estimate (NORMAL) Hypochromasia (manual) Poikilocytosis (manual Anisocytosis (manual) Puncture Site Lr pCO2 33 L (35-45) mm/Hg pO2 120 H (80-100) mm/Hg HCO3 23.4 (21-28) mmol/L ABG pH 7.43 (7.35-7.45) ABG Total CO2 22.9 (22-28) mmol/L ABG O2 Saturation 99.8 H (95-98) % ABG Base Excess -2.0 (-2.0-3.0) mmol/L ABG Hemoglobin 8.4 L (11.7-17.4) g/dL ABG Carboxyhemoglobin 1.7 H (0.5-1.5) % POC ABG HHb (Measured) 0.2 (0.0-5.0) % ABG Methemoglobin 0.9 (0.0-3.0) % Parviz Test Pos A-a O2 Difference 195.0 mm/Hg Respiratory Index 1.6 Hgb O2 Saturation 97.3 (95.0-98.0) % Vent Mode Prvc Mechanical Rate 16 FiO2 50.0 % Tidal Volume 450 PEEP 5 Sodium (132-148) mmol/L Potassium (3.6-5.2) mmol/L Chloride (98-107) mmol/L Carbon Dioxide (22-30) mmol/L Anion Gap (10-20) BUN (9-20) mg/dL Creatinine (0.8-1.5) mg/dL Est GFR ( Amer) Est GFR (Non-Af Amer) POC Glucose (mg/dL) 356 H 319 H (65-110) mg/dL Random Glucose (75-110) mg/dL Calcium (8.6-10.4) mg/dl Phosphorus (2.5-4.5) mg/dL Magnesium (1.6-2.3) mg/dL Total Bilirubin (0.2-1.3) mg/dL AST (17-59) U/L ALT (21-72) U/L Alkaline Phosphatase (38-126) U/L Total Protein (6.3-8.3) g/dL Albumin (3.5-5.0) g/dL Globulin (2.2-3.9) gm/dL Albumin/Globulin Ratio (1.0-2.1) Ur Random Creatinine mg/dL U Random Total Protein (22-128) mg/g creat Ur Random Sodium mmol/L 12/05/17 Range/Units 08:07 WBC (4.8-10.8) K/uL RBC (4.40-5.90) Mil/uL Hgb (12.0-18.0) g/dL Hct (35.0-51.0) % MCV (80.0-94.0) fL MCH (27.0-31.0) pg MCHC (33.0-37.0) g/dL RDW (11.5-14.5) % Plt Count (130-400) K/uL MPV (7.2-11.7) fL Neut % (Auto) (50.0-75.0) % Lymph % (Auto) (20.0-40.0) % [place] % (Auto) (0.0-10.0) % Eos % (Auto) (0.0-4.0) % Baso % (Auto) (0.0-2.0) % Neut # (Auto) (1.8-7.0) K/uL Lymph # (Auto) (1.0-4.3) K/uL [place] # (Auto) (0.0-0.8) K/uL Eos # (Auto) (0.0-0.7) K/uL Baso # (Auto) (0.0-0.2) K/uL Neutrophils % (Manual) (50-75) % Lymphocytes % (Manual) (20-40) % Monocytes % (Manual) (0-10) % Myelocytes % (0-0) % Nucleated RBC % (0-0) % Platelet Estimate (NORMAL) Hypochromasia (manual) Poikilocytosis (manual Anisocytosis (manual) Puncture Site pCO2 (35-45) mm/Hg pO2 (80-100) mm/Hg HCO3 (21-28) mmol/L ABG pH (7.35-7.45) ABG Total CO2 (22-28) mmol/L ABG O2 Saturation (95-98) % ABG Base Excess (-2.0-3.0) mmol/L ABG Hemoglobin (11.7-17.4) g/dL ABG Carboxyhemoglobin (0.5-1.5) % POC ABG HHb (Measured) (0.0-5.0) % ABG Methemoglobin (0.0-3.0) % Parviz Test A-a O2 Difference mm/Hg Respiratory Index Hgb O2 Saturation (95.0-98.0) % Vent Mode Mechanical Rate FiO2 % Tidal Volume PEEP Sodium (132-148) mmol/L Potassium (3.6-5.2) mmol/L Chloride (98-107) mmol/L Carbon Dioxide (22-30) mmol/L Anion Gap (10-20) BUN (9-20) mg/dL Creatinine (0.8-1.5) mg/dL Est GFR ( Amer) Est GFR (Non-Af Amer) POC Glucose (mg/dL) (65-110) mg/dL Random Glucose (75-110) mg/dL Calcium (8.6-10.4) mg/dl Phosphorus (2.5-4.5) mg/dL Magnesium (1.6-2.3) mg/dL Total Bilirubin (0.2-1.3) mg/dL AST (17-59) U/L ALT (21-72) U/L Alkaline Phosphatase (38-126) U/L Total Protein (6.3-8.3) g/dL Albumin (3.5-5.0) g/dL Globulin (2.2-3.9) gm/dL Albumin/Globulin Ratio (1.0-2.1) Ur Random Creatinine mg/dL U Random Total Protein 2551 H (22-128) mg/g creat Ur Random Sodium mmol/L Laboratory Results - last 24 hr 12/05/17 12/05/17 12/05/17 08:07 18:08 23:50 WBC RBC Hgb Hct MCV MCH MCHC RDW Plt Count MPV Neut % (Auto) Lymph % (Auto) [place] % (Auto) Eos % (Auto) Baso % (Auto) Neut # (Auto) Lymph # (Auto) [place] # (Auto) Eos # (Auto) Baso # (Auto) Neutrophils % (Manual) Lymphocytes % (Manual) Monocytes % (Manual) Myelocytes % Nucleated RBC % Platelet Estimate Hypochromasia (manual) Poikilocytosis (manual Anisocytosis (manual) Puncture Site pCO2 pO2 HCO3 ABG pH ABG Total CO2 ABG O2 Saturation ABG Base Excess ABG Hemoglobin ABG Carboxyhemoglobin POC ABG HHb (Measured) ABG Methemoglobin Parviz Test A-a O2 Difference Respiratory Index Hgb O2 Saturation Vent Mode Mechanical Rate FiO2 Tidal Volume PEEP Sodium Potassium Chloride Carbon Dioxide Anion Gap BUN Creatinine Est GFR ( Amer) Est GFR (Non-Af Amer) POC Glucose (mg/dL) 319 H 356 H Random Glucose Calcium Phosphorus Magnesium Total Bilirubin AST ALT Alkaline Phosphatase Total Protein Albumin Globulin Albumin/Globulin Ratio Ur Random Creatinine U Random Total Protein 2551 H Ur Random Sodium 12/06/17 12/06/17 12/06/17 05:07 06:21 06:44 WBC RBC Hgb Hct MCV MCH MCHC RDW Plt Count MPV Neut % (Auto) Lymph % (Auto) [place] % (Auto) Eos % (Auto) Baso % (Auto) Neut # (Auto) Lymph # (Auto) [place] # (Auto) Eos # (Auto) Baso # (Auto) Neutrophils % (Manual) Lymphocytes % (Manual) Monocytes % (Manual) Myelocytes % Nucleated RBC % Platelet Estimate Hypochromasia (manual) Poikilocytosis (manual Anisocytosis (manual) Puncture Site Lr pCO2 33 L pO2 120 H HCO3 23.4 ABG pH 7.43 ABG Total CO2 22.9 ABG O2 Saturation 99.8 H ABG Base Excess -2.0 ABG Hemoglobin 8.4 L ABG Carboxyhemoglobin 1.7 H POC ABG HHb (Measured) 0.2 ABG Methemoglobin 0.9 Parviz Test Pos A-a O2 Difference 195.0 Respiratory Index 1.6 Hgb O2 Saturation 97.3 Vent Mode Prvc Mechanical Rate 16 FiO2 50.0 Tidal Volume 450 PEEP 5 Sodium Potassium Chloride Carbon Dioxide Anion Gap BUN Creatinine Est GFR ( Amer) Est GFR (Non-Af Amer) POC Glucose (mg/dL) 300 H 283 H Random Glucose Calcium Phosphorus Magnesium Total Bilirubin AST ALT Alkaline Phosphatase Total Protein Albumin Globulin Albumin/Globulin Ratio Ur Random Creatinine U Random Total Protein Ur Random Sodium 12/06/17 12/06/17 12/06/17 06:45 06:45 07:58 WBC 10.7 RBC 3.20 L Hgb 8.6 L Hct 25.7 L MCV 80.4 MCH 26.7 L MCHC 33.3 RDW 16.7 H Plt Count 179 MPV 10.8 Neut % (Auto) 91.4 H Lymph % (Auto) 4.1 L [place] % (Auto) 4.4 Eos % (Auto) 0.0 Baso % (Auto) 0.1 Neut # (Auto) 9.8 H Lymph # (Auto) 0.4 L [place] # (Auto) 0.5 Eos # (Auto) 0.0 Baso # (Auto) 0.0 Neutrophils % (Manual) 90 H Lymphocytes % (Manual) 5 L Monocytes % (Manual) 4 Myelocytes % 1 H Nucleated RBC % 1 H Platelet Estimate Normal Hypochromasia (manual) Slight Poikilocytosis (manual Slight Anisocytosis (manual) Slight Puncture Site pCO2 pO2 HCO3 ABG pH ABG Total CO2 ABG O2 Saturation ABG Base Excess ABG Hemoglobin ABG Carboxyhemoglobin POC ABG HHb (Measured) ABG Methemoglobin Parviz Test A-a O2 Difference Respiratory Index Hgb O2 Saturation Vent Mode Mechanical Rate FiO2 Tidal Volume PEEP Sodium 142 Potassium 3.5 L Chloride 108 H Carbon Dioxide 21 L Anion Gap 16 BUN 93 H Creatinine 2.9 H Est GFR ( Amer) 25 Est GFR (Non-Af Amer) 21 POC Glucose (mg/dL) Random Glucose 280 H Calcium 7.0 L Phosphorus 4.5 Magnesium 1.8 Total Bilirubin 0.4 AST 31 ALT 44 Alkaline Phosphatase 92 Total Protein 4.9 L Albumin 2.4 L Globulin 2.5 Albumin/Globulin Ratio 0.9 L Ur Random Creatinine 57.5 U Random Total Protein Ur Random Sodium 33 12/06/17 11:36 WBC RBC Hgb Hct MCV MCH MCHC RDW Plt Count MPV Neut % (Auto) Lymph % (Auto) [place] % (Auto) Eos % (Auto) Baso % (Auto) Neut # (Auto) Lymph # (Auto) [place] # (Auto) Eos # (Auto) Baso # (Auto) Neutrophils % (Manual) Lymphocytes % (Manual) Monocytes % (Manual) Myelocytes % Nucleated RBC % Platelet Estimate Hypochromasia (manual) Poikilocytosis (manual Anisocytosis (manual) Puncture Site pCO2 pO2 HCO3 ABG pH ABG Total CO2 ABG O2 Saturation ABG Base Excess ABG Hemoglobin ABG Carboxyhemoglobin POC ABG HHb (Measured) ABG Methemoglobin Parviz Test A-a O2 Difference Respiratory Index Hgb O2 Saturation Vent Mode Mechanical Rate FiO2 Tidal Volume PEEP Sodium Potassium Chloride Carbon Dioxide Anion Gap BUN Creatinine Est GFR ( Amer) Est GFR (Non-Af Amer) POC Glucose (mg/dL) 310 H Random Glucose Calcium Phosphorus Magnesium Total Bilirubin AST ALT Alkaline Phosphatase Total Protein Albumin Globulin Albumin/Globulin Ratio Ur Random Creatinine U Random Total Protein Ur Random Sodium Attending/Attestation - Attestation I have personally seen and examined this patient.: Yes I have fully participated in the care of the patient.: Yes I have reviewed all pertinent clinical information: Yes Notes (Text): 12/06/17 16:42 patient seen and examined in the intensive care unit. remained intubated on ventilatory support being treated for pneumonia and CHF Ejection fraction 40-45% Started on Lopressor for A. fib with rapid rate continue by mouth Cardizem Continue feeding
--- NOTE | 2017-12-06 15:40 | CP.PCM.PN ---
Subjective - Date & Time of Evaluation Date of Evaluation: 12/06/17 Time of Evaluation: 15:38 - Subjective Subjective: Events reviewed. No major change clinically Objective - Vital Signs/Intake and Output Vital Signs (last 24 hours): Temp Pulse Resp BP Pulse Ox 98.3 F 134 H 30 H 179/110 H 96 12/06/17 12:00 12/06/17 15:01 12/06/17 15:01 12/06/17 15:01 12/06/17 15:01 Intake and Output: 12/06/17 12/06/17 06:59 18:59 Intake Total 1960 1575 Output Total 875 665 Balance 1085 910 - Medications Medications: Current Medications Acetaminophen (Tylenol 650mg/20.3ml Solution Ud) 650 mg PO Q6 PRN PRN Reason: fever Last Admin: 12/04/17 15:26 Dose: 650 mg Aspirin (Aspirin Chewable) 81 mg PO DAILY [facility] Last Admin: 12/06/17 10:14 Dose: 81 mg Bisacodyl (Dulcolax) 10 mg ND Q24H PRN PRN Reason: Constipation Diltiazem HCl (Cardizem) 60 mg PO Q6 [facility] Last Admin: 12/06/17 12:15 Dose: 60 mg Folic Acid (Folic Acid) 1 mg PO DAILY [facility] Last Admin: 12/06/17 10:14 Dose: 1 mg Heparin Sodium (Porcine) (Heparin) 5,000 units SC Q8 [facility] Last Admin: 12/06/17 15:09 Dose: 5,000 units Hydrocortisone Sodium Succinate (Solu-Cortef) 100 mg IV Q8H [facility] Last Admin: 12/06/17 12:39 Dose: 100 mg Doxycycline Hyclate 100 mg/ (Sodium Chloride) 100 mls @ 100 mls/hr IVPB Q12H [facility] Last Admin: 12/06/17 12:09 Dose: 100 mls/hr Linezolid (Zyvox 600mg/300ml D5w) 600 mg in 300 mls @ 200 mls/hr IVPB Q12 [facility] Last Admin: 12/06/17 10:15 Dose: 200 mls/hr Aztreonam 1 gm/ Sodium (Chloride) 100 mls @ 100 mls/hr IVPB Q12H [facility] Last Admin: 12/06/17 12:39 Dose: 100 mls/hr Insulin Aspart (Novolog) 0 unit SC Q6 [facility] PRN Reason: Protocol Last Admin: 12/06/17 12:38 Dose: 8 unit Latanoprost (Xalatan Opht) 0 ml OD HS [facility] Last Admin: 12/05/17 22:24 Dose: 2.5 ml Metoprolol Tartrate (Lopressor) 5 mg IVP Q6 [facility] Pantoprazole Sodium (Protonix Inj) 40 mg IVP DAILY [facility] Last Admin: 12/06/17 11:08 Dose: 40 mg Rosuvastatin Calcium (Crestor) 5 mg PO HS [facility] Last Admin: 12/05/17 22:24 Dose: 5 mg Sodium Bicarbonate (Sodium Bicarbonate Tab) 650 mg PO BID [facility] Sucralfate (Carafate Oral Susp) 1 gm PO TID [facility] Last Admin: 12/06/17 15:09 Dose: 1 gm Thiamine HCl (Vitamin B1 Tab) 100 mg GT DAILY [facility] Last Admin: 12/06/17 10:14 Dose: 100 mg - Labs Labs: 12/06/17 06:45 12/06/17 06:45 PT 12.9 SECONDS (9.7-12.2) H 12/01/17 13:39 INR 1.15 (0.92-1.08) H 12/01/17 13:39 APTT 73 SECONDS (21-34) H D 12/04/17 06:38 Assessment and Plan - Assessment and Plan (Free Text) Assessment: 2D echo images viewed by me: Moderate LV dysfunction, technically limited study due tachycardia during the study. EF 45%%, patient appears to be in afib EKG images viewed by me: Atrial fibrillation CXR: Severe rotation, poor inspirtory effort, ETT, Right pleural effusion A/P: 87 year old man with dementia, hydrocephalus s/p [employer] shunt Respirtory failure although mostly driven by poor mental status some element of pulmonary edema is contributing, diuresis Acute on chronic Diastolic CHF - EF 45-50% when hemodynamically stable add coreg , Afib chronic not a candidate for anticoagulation; Rate control with diltiazem; add lopressor 25mg po q6h titrate this every 6 hours up as BP and HR tolerate once stable dose is established can change to BID or daily preparation
--- NOTE | 2017-12-06 17:16 | CP.PCM.PN ---
Subjective - Date & Time of Evaluation Date of Evaluation: 12/06/17 Time of Evaluation: 17:16 Objective - Vital Signs/Intake and Output Vital Signs (last 24 hours): Temp Pulse Resp BP Pulse Ox 98.9 F 134 H 27 H 137/77 99 12/06/17 16:00 12/06/17 16:00 12/06/17 16:00 12/06/17 16:00 12/06/17 16:00 Intake and Output: 12/06/17 12/06/17 06:59 18:59 Intake Total 1960 1625 Output Total 875 870 Balance 1085 755 - Medications Medications: Current Medications Acetaminophen (Tylenol 650mg/20.3ml Solution Ud) 650 mg PO Q6 PRN PRN Reason: fever Last Admin: 12/04/17 15:26 Dose: 650 mg Aspirin (Aspirin Chewable) 81 mg PO DAILY [facility] Last Admin: 12/06/17 10:14 Dose: 81 mg Bisacodyl (Dulcolax) 10 mg IN Q24H PRN PRN Reason: Constipation Diltiazem HCl (Cardizem) 60 mg PO Q6 [facility] Last Admin: 12/06/17 12:15 Dose: 60 mg Folic Acid (Folic Acid) 1 mg PO DAILY [facility] Last Admin: 12/06/17 10:14 Dose: 1 mg Heparin Sodium (Porcine) (Heparin) 5,000 units SC Q8 [facility] Last Admin: 12/06/17 15:09 Dose: 5,000 units Hydrocortisone Sodium Succinate (Solu-Cortef) 100 mg IV Q8H [facility] Last Admin: 12/06/17 12:39 Dose: 100 mg Doxycycline Hyclate 100 mg/ (Sodium Chloride) 100 mls @ 100 mls/hr IVPB Q12H [facility] Last Admin: 12/06/17 12:09 Dose: 100 mls/hr Linezolid (Zyvox 600mg/300ml D5w) 600 mg in 300 mls @ 200 mls/hr IVPB Q12 [facility] Last Admin: 12/06/17 10:15 Dose: 200 mls/hr Aztreonam 1 gm/ Sodium (Chloride) 100 mls @ 100 mls/hr IVPB Q12H [facility] Last Admin: 12/06/17 12:39 Dose: 100 mls/hr Insulin Aspart (Novolog) 0 unit SC Q6 [facility] PRN Reason: Protocol Last Admin: 12/06/17 12:38 Dose: 8 unit Latanoprost (Xalatan Opht) 0 ml OD HS [facility] Last Admin: 12/05/17 22:24 Dose: 2.5 ml Metoprolol Tartrate (Lopressor) 5 mg IVP Q6 [facility] Pantoprazole Sodium (Protonix Inj) 40 mg IVP DAILY [facility] Last Admin: 12/06/17 11:08 Dose: 40 mg Rosuvastatin Calcium (Crestor) 5 mg PO HS [facility] Last Admin: 12/05/17 22:24 Dose: 5 mg Sodium Bicarbonate (Sodium Bicarbonate Tab) 650 mg PO BID [facility] Sucralfate (Carafate Oral Susp) 1 gm PO TID [facility] Last Admin: 12/06/17 15:09 Dose: 1 gm Thiamine HCl (Vitamin B1 Tab) 100 mg GT DAILY [facility] Last Admin: 12/06/17 10:14 Dose: 100 mg - Labs Labs: 12/06/17 06:45 12/06/17 06:45 PT 12.9 SECONDS (9.7-12.2) H 12/01/17 13:39 INR 1.15 (0.92-1.08) H 12/01/17 13:39 APTT 73 SECONDS (21-34) H D 12/04/17 06:38
[2017-12-06] MEDS: Metoprolol 1 mg/ml Inj IVP SCH ×2 (18:04→23:24)
--- NOTE | 2017-12-06 18:42 | CP.PCM.PN ---
Subjective - Date & Time of Evaluation Date of Evaluation: 12/06/17 Time of Evaluation: 16:20 - Subjective Subjective: clinically same Objective - Vital Signs/Intake and Output Vital Signs (last 24 hours): Temp Pulse Resp BP Pulse Ox 98.9 F 92 H 21 147/93 H 94 L 12/06/17 16:00 12/06/17 17:00 12/06/17 17:00 12/06/17 17:00 12/06/17 17:00 Intake and Output: 12/06/17 12/06/17 06:59 18:59 Intake Total 1960 1675 Output Total 875 970 Balance 1085 705 - Medications Medications: Current Medications Acetaminophen (Tylenol 650mg/20.3ml Solution Ud) 650 mg PO Q6 PRN PRN Reason: fever Last Admin: 12/04/17 15:26 Dose: 650 mg Aspirin (Aspirin Chewable) 81 mg PO DAILY [facility] Last Admin: 12/06/17 10:14 Dose: 81 mg Bisacodyl (Dulcolax) 10 mg [place] Q24H PRN PRN Reason: Constipation Diltiazem HCl (Cardizem) 60 mg PO Q6 [facility] Last Admin: 12/06/17 18:05 Dose: 60 mg Folic Acid (Folic Acid) 1 mg PO DAILY [facility] Last Admin: 12/06/17 10:14 Dose: 1 mg Heparin Sodium (Porcine) (Heparin) 5,000 units SC Q8 [facility] Last Admin: 12/06/17 15:09 Dose: 5,000 units Hydrocortisone Sodium Succinate (Solu-Cortef) 100 mg IV Q8H [facility] Last Admin: 12/06/17 12:39 Dose: 100 mg Doxycycline Hyclate 100 mg/ (Sodium Chloride) 100 mls @ 100 mls/hr IVPB Q12H [facility] Last Admin: 12/06/17 12:09 Dose: 100 mls/hr Linezolid (Zyvox 600mg/300ml D5w) 600 mg in 300 mls @ 200 mls/hr IVPB Q12 [facility] Last Admin: 12/06/17 10:15 Dose: 200 mls/hr Aztreonam 1 gm/ Sodium (Chloride) 100 mls @ 100 mls/hr IVPB Q12H [facility] Last Admin: 12/06/17 12:39 Dose: 100 mls/hr Insulin Aspart (Novolog) 0 unit SC Q6 [facility] PRN Reason: Protocol Last Admin: 12/06/17 18:05 Dose: 6 unit Latanoprost (Xalatan Opht) 0 ml OD HS [facility] Last Admin: 12/05/17 22:24 Dose: 2.5 ml Metoprolol Tartrate (Lopressor) 5 mg IVP Q6 [facility] Last Admin: 12/06/17 18:04 Dose: 5 mg Pantoprazole Sodium (Protonix Inj) 40 mg IVP DAILY [facility] Last Admin: 12/06/17 11:08 Dose: 40 mg Rosuvastatin Calcium (Crestor) 5 mg PO HS [facility] Last Admin: 12/05/17 22:24 Dose: 5 mg Sodium Bicarbonate (Sodium Bicarbonate Tab) 650 mg PO BID [facility] Last Admin: 12/06/17 18:04 Dose: 650 mg Sucralfate (Carafate Oral Susp) 1 gm PO TID [facility] Last Admin: 12/06/17 18:04 Dose: 1 gm Thiamine HCl (Vitamin B1 Tab) 100 mg GT DAILY [facility] Last Admin: 12/06/17 10:14 Dose: 100 mg - Labs Labs: 12/06/17 06:45 12/06/17 06:45 PT 12.9 SECONDS (9.7-12.2) H 12/01/17 13:39 INR 1.15 (0.92-1.08) H 12/01/17 13:39 APTT 73 SECONDS (21-34) H D 12/04/17 06:38 - Constitutional Appears: Well - Head Exam Head Exam: ATRAUMATIC, NORMAL INSPECTION, NORMOCEPHALIC - Eye Exam Eye Exam: EOMI, Normal appearance, PERRL Pupil Exam: NORMAL ACCOMODATION, PERRL - ENT Exam ENT Exam: Mucous Membranes Moist, Normal Exam - Neck Exam Neck Exam: Full ROM, Normal Inspection. absent: Lymphadenopathy - Respiratory Exam Respiratory Exam: Decreased Breath Sounds - Cardiovascular Exam Cardiovascular Exam: REGULAR RHYTHM, +S1, +S2 - GI/Abdominal Exam GI & Abdominal Exam: Soft, Diminished Bowel Sounds - Rectal Exam Rectal Exam: Deferred Assessment and Plan (1) Bandemia Status: Acute (2) Dyspnea Status: Acute (3) Fever Status: Acute (4) Lethargy Status: Acute (5) Sepsis Status: Acute (6) Contusion Status: Acute (7) Fall Status: Acute
[2017-12-06] MEDS ORDERED: Potassium Chloride 20 mEq ER Tab PO ONE (20:00)
[2017-12-06] MEDS: Latanoprost 2.5 ml Opht Soln OD SCH (21:31)
[2017-12-07] MEDS: (Novolog) Insulin Aspart, Recombinant 100 u/ml 10 ml vial SC SCH ×4 (00:17→18:23)
[2017-12-07] MEDS: Aztreonam 1 GM in Sodium Chloride 0.9% 100 ML IVPB SCH ×2 (00:42→12:20)
[2017-12-07 05:45] LABS: ABG ALLEN TEST POS; ARTERIAL BLOOD GAS HCO3 23.8 mmol/L (21-28); ARTERIAL BLOOD GAS HEMOGLOBIN 8.7 g/dL (11.7-17.4); ARTERIAL BLOOD GAS O2 SAT 98.7 % (95-98); ARTERIAL BLOOD GAS PCO2 33 mm/Hg (35-45); ARTERIAL BLOOD GAS PH 7.44 (7.35-7.45); ARTERIAL BLOOD GAS PO2 79 mm/Hg (80-100); ARTERIAL BLOOD GAS TCO2 23.4 mmol/L (22-28)
[2017-12-07] MEDS: Metoprolol 1 mg/ml Inj IVP SCH ×4 (05:52→23:00)
[2017-12-07 06:23] LABS: BASO % 0.1 % (0.0-2.0); HEMOGLOBIN 8.9 g/dL (12.0-18.0); LYMPH # 0.5 K/uL (1.0-4.3); LYMPH % 3.9 % (20.0-40.0); MEAN CELL VOLUME 80.7 fL (80.0-94.0); MEAN CORPUSCULAR HEMOGLOBIN 26.1 pg (27.0-31.0); MEAN CORPUSCULAR HGB CONC 32.3 g/dL (33.0-37.0); MEAN PLATELET VOLUME 11.2 fL (7.2-11.7); MONO # 0.4 K/uL (0.0-0.8); MONO % 3.5 % (0.0-10.0); NEUT # 11.5 K/uL (1.8-7.0); NEUT % 92.5 % (50.0-75.0); PLATELET COUNT 195 K/uL (130-400); RBC 3.43 Mil/uL (4.40-5.90); RED CELL DISTRIBUTION WIDTH 16.9 % (11.5-14.5); WHITE BLOOD COUNT 12.5 K/uL (4.8-10.8)
[2017-12-07 06:41] LABS: ALB/GLOB RATIO 0.9 (1.0-2.1); ALBUMIN 2.3 g/dL (3.5-5.0); CALCIUM 7.2 mg/dl (8.6-10.4)
--- NOTE | 2017-12-07 07:22 | CP.PCM.PN ---
Subjective - Date & Time of Evaluation Date of Evaluation: 12/07/17 Time of Evaluation: 07:18 - Subjective Subjective: Mr. Yoon was seen and examined at the bedside in ICU. He opens his eyes spontaneously, with facial grimacing with tactile stimuli. He remains on mechanical ventilator on PRVC mode. GCS 4T. He has generalized edema especially in his bilateral upper and lower extremities. He has episode of loose bowel movements, manager of operations made aware. There was no untoward events overnight. Objective - Vital Signs/Intake and Output Vital Signs (last 24 hours): Temp Pulse Resp BP Pulse Ox 99 F 132 H 24 133/76 100 12/07/17 00:00 12/07/17 03:01 12/07/17 03:01 12/07/17 03:01 12/07/17 03:01 Intake and Output: 12/07/17 12/07/17 06:59 18:59 Intake Total 800 Output Total 300 Balance 500 - Medications Medications: Current Medications Acetaminophen (Tylenol 650mg/20.3ml Solution Ud) 650 mg PO Q6 PRN PRN Reason: fever Last Admin: 12/04/17 15:26 Dose: 650 mg Aspirin (Aspirin Chewable) 81 mg PO DAILY [facility] Last Admin: 12/06/17 10:14 Dose: 81 mg Bisacodyl (Dulcolax) 10 mg [place] Q24H PRN PRN Reason: Constipation Diltiazem HCl (Cardizem) 60 mg PO Q6 [facility] Last Admin: 12/07/17 05:51 Dose: 60 mg Folic Acid (Folic Acid) 1 mg PO DAILY [facility] Last Admin: 12/06/17 10:14 Dose: 1 mg Heparin Sodium (Porcine) (Heparin) 5,000 units SC Q8 [facility] Last Admin: 12/07/17 05:51 Dose: 5,000 units Hydrocortisone Sodium Succinate (Solu-Cortef) 100 mg IV Q8H [facility] Last Admin: 12/07/17 07:09 Dose: 100 mg Doxycycline Hyclate 100 mg/ (Sodium Chloride) 100 mls @ 100 mls/hr IVPB Q12H [facility] Last Admin: 12/06/17 23:30 Dose: 100 mls/hr Linezolid (Zyvox 600mg/300ml D5w) 600 mg in 300 mls @ 200 mls/hr IVPB Q12 [facility] Last Admin: 12/06/17 21:20 Dose: 200 mls/hr Aztreonam 1 gm/ Sodium (Chloride) 100 mls @ 100 mls/hr IVPB Q12H [facility] Last Admin: 12/07/17 00:42 Dose: 100 mls/hr Insulin Aspart (Novolog) 0 unit SC Q6 [facility] PRN Reason: Protocol Last Admin: 12/07/17 05:54 Dose: 6 unit Latanoprost (Xalatan Opht) 0 ml OD HS [facility] Last Admin: 12/06/17 21:31 Dose: 2.5 ml Metoprolol Tartrate (Lopressor) 5 mg IVP Q6 [facility] Last Admin: 12/07/17 05:52 Dose: 5 mg Pantoprazole Sodium (Protonix Inj) 40 mg IVP DAILY [facility] Last Admin: 12/06/17 11:08 Dose: 40 mg Rosuvastatin Calcium (Crestor) 5 mg PO HS [facility] Last Admin: 12/06/17 21:20 Dose: 5 mg Sodium Bicarbonate (Sodium Bicarbonate Tab) 650 mg PO BID [facility] Last Admin: 12/06/17 18:04 Dose: 650 mg Sucralfate (Carafate Oral Susp) 1 gm PO TID [facility] Last Admin: 12/06/17 18:04 Dose: 1 gm Thiamine HCl (Vitamin B1 Tab) 100 mg GT DAILY [facility] Last Admin: 12/06/17 10:14 Dose: 100 mg - Labs Labs: 12/07/17 06:18 12/07/17 06:17 PT 12.9 SECONDS (9.7-12.2) H 12/01/17 13:39 INR 1.15 (0.92-1.08) H 12/01/17 13:39 APTT 73 SECONDS (21-34) H D 12/04/17 06:38 - Constitutional Appears: No Acute Distress - Head Exam Head Exam: NORMAL INSPECTION - Extremities Exam Additional comments: positive for edema +4 - Neurological Exam Neuro motor strength exam: Left Upper Extremity: 2/1, Right Upper Extremity: 0, Left Lower Extremity: 0, Right Lower Extremity: 0 Additional comments: GCS-4T. Assessment and Plan (1) Sepsis Assessment & Plan: Case discussed with Dr. Mosher, continue all current medical regimen. Recommend to treat underlying infection and electrolyte abnormalities. Status: Acute
[2017-12-07 08:16] LABS: ANISOCYTOSIS SLIGHT; BURR CELLS SLIGHT; HYPOCHROMIC SLIGHT; LYMPHOCYTE 3 % (20-40); MONOCYTE 2 % (0-10); NEUTROPHIL 95 % (50-75); PLATELET ESTIMATE NORMAL (NORMAL); POIKILOCYTOSIS SLIGHT; TOTAL CELLS COUNTED 100
[2017-12-07 08:17] LABS: TARGET CELLS SLIGHT
--- NOTE | 2017-12-07 09:11 | RAD ---
Chest x-ray single frontal view History: Ventilator. Comparison: 12/06/1017 Findings: Lines and tubes in stable position. Moderate right and small left pleural effusion. Moderate venous congestion. Patchy opacity in the right mid to lower lung zone. Biapical pleural thickening with upper lobe granulomatous changes. Right peritracheal airspace opacity. Tortuous aorta. Degenerative changes in the 1st spine and shoulders. Impression No significant interval change.
--- NOTE | 2017-12-07 09:31 | US ---
Limited right omero thorax ultrasound History: Right-sided pleural effusion. Comparison: X-ray dated 12/06/2017 Technique: Limited soft tissue ultrasound was performed through the right omero thorax. Findings: A right pleural effusion was marked for thoracentesis to be performed by Dr. Bangura at bedside. Impression: Right-sided pleural effusion.
[2017-12-07] MEDS: Sucralfate 1 gm/10 ml Oral Susp UD PO SCH ×3 (10:22→17:35)
[2017-12-07 11:27] LABS: BASO % 0.1 % (0.0-2.0); HEMOGLOBIN 8.9 g/dL (12.0-18.0); LYMPH # 0.4 K/uL (1.0-4.3); LYMPH % 3.6 % (20.0-40.0); MEAN CELL VOLUME 80.2 fL (80.0-94.0); MEAN CORPUSCULAR HEMOGLOBIN 26.1 pg (27.0-31.0); MEAN CORPUSCULAR HGB CONC 32.6 g/dL (33.0-37.0); MEAN PLATELET VOLUME 10.6 fL (7.2-11.7); MONO # 0.4 K/uL (0.0-0.8); MONO % 3.5 % (0.0-10.0); NEUT # 11.1 K/uL (1.8-7.0); NEUT % 92.8 % (50.0-75.0); PLATELET COUNT 195 K/uL (130-400); RBC 3.43 Mil/uL (4.40-5.90); RED CELL DISTRIBUTION WIDTH 16.4 % (11.5-14.5)
[2017-12-07 11:56] LABS: LYMPHOCYTE 3 % (20-40); MONOCYTE 2 % (0-10); MYELOCYTE 1 % (0-0); NEUTROPHIL 94 % (50-75); PLATELET ESTIMATE NORMAL (NORMAL); TOTAL CELLS COUNTED 100
[2017-12-07 11:57] LABS: ANISOCYTOSIS SLIGHT; HYPOCHROMIC SLIGHT; POIKILOCYTOSIS SLIGHT
[2017-12-07 12:02] LABS: CREATININE, RANDOM URINE 26.8 mg/dL
[2017-12-07] MEDS: Linezolid 600 mg in D5W 300 ml 600 MG/300 ML BAG IVPB SCH ×2 (12:20→21:00)
--- NOTE | 2017-12-07 17:19 | CP.CCUPN ---
<Jas Rockwell - Last Filed: 12/07/17 18:21> CCU Subjective - Physician Review Events Since Last Encounter (Free Text): 12/07/17 17:20 Per nursing patient made loose brown stool overnight. No acute events overnight. Subjective (Free Text): 12/06/17 11:39 Patient seen and examined at bedside this A.M. Per nursing no acute events overnight. Patient scheduled for HD 12/07/17. Critical Care Time Spent (in minutes): 45 CCU Objective - Vital Signs / Intake & Output Vital Signs (Last 4 hours): Vital Signs Temp Pulse Resp BP Pulse Ox 12/07/17 16:00 99 F 134 H 17 143/85 99 12/07/17 15:00 107 H 19 158/76 H 99 12/07/17 14:01 134 H 23 150/97 H 99 12/07/17 14:00 134 H 25 H 99 Intake and Output (Last 8hrs): Intake & Output 12/07/17 12/07/17 12/07/17 06:59 14:59 22:59 Intake Total 410 600 0 Output Total 720 800 200 Balance -310 -200 -200 Weight 208 lb 210 lb Intake: Intake, IV Amount 200 600 Right Distal Port 600 Internal Jugular Right Medial Port 200 Internal Jugular Tube Feeding 150 0 0 Other 60 Output: Urine 720 800 200 Urethral (Morgan) 720 800 200 Other: # Bowel Movements 1 - Physical Exam Head: Positive for: Atraumatic, Normocephalic Pupils: Positive for: PERRL Respiratory/Chest: Positive for: Decreased Breath Sounds Cardiovascular: Positive for: Normal S1, S2, Tachycardic Abdomen: Positive for: Normal Bowel Sounds. Negative for: Peritoneal Signs Upper Extremity: Positive for: Normal Inspection Lower Extremity: Positive for: Normal Inspection Neurological: Negative for: GCS=15, CN II-XII Intact - Medications Active Medications: Active Medications Generic Name Dose Route Start Last Admin Trade Name Freq PRN Reason Stop Dose Admin Acetaminophen 650 mg 12/02/17 07:49 12/04/17 15:26 Tylenol 650mg/20.3ml Solution Ud PO 650 mg Q6 PRN Administration fever Aspirin 81 mg 12/02/17 10:00 12/07/17 10:50 Aspirin Chewable PO 81 mg DAILY PRISCILA Administration Bisacodyl 10 mg 12/03/17 11:57 Dulcolax IL Q24H PRN Constipation Diltiazem HCl 60 mg 12/05/17 12:00 12/07/17 12:20 Cardizem PO 60 mg Q6 PRISCILA Administration Famotidine 20 mg 12/07/17 12:30 12/07/17 13:04 Pepcid IVP Not Given DAILY [facility] Doxycycline Hyclate 100 mg/ 100 mls @ 100 mls/hr 12/03/17 12:30 12/07/17 12: 20 Sodium Chloride IVPB 100 mls/hr Q12H PRISCILA Administration Linezolid 600 mg in 300 mls @ 200 mls/hr 12/05/17 10:00 12/07/17 12:20 Zyvox 600mg/300ml D5w IVPB 200 mls/hr Q12 PRISCILA Administration Aztreonam 1 gm/ Sodium 100 mls @ 100 mls/hr 12/05/17 13:00 12/07/17 12:20 Chloride IVPB 100 mls/hr Q12H PRISCILA Administration Insulin Aspart 0 unit 12/06/17 12:00 12/07/17 12:16 Novolog SC Not Given Q6 [facility] Protocol Latanoprost 0 ml 12/01/17 23:45 12/06/17 21:31 Xalatan Opht OD 2.5 ml HS PRISCILA Administration Metoprolol Tartrate 5 mg 12/06/17 18:00 12/07/17 12:20 Lopressor IVP 5 mg Q6 PRISCILA Administration Sodium Bicarbonate 650 mg 12/06/17 18:00 12/07/17 10:22 Sodium Bicarbonate Tab PO 650 mg BID [facility] Administration Sucralfate 1 gm 12/03/17 18:00 12/07/17 13:40 Carafate Oral Susp PO 1 gm TID PRISCILA Administration - Patient Studies Lab Studies: Microbiology Studies 12/02/17 15:20 Gram Stain - Final Cerebral Spinal Fluid CSF Culture - Final No growth. Lab Studies 12/07/17 12/07/17 12/07/17 Range/Units 11:47 11:19 11:19 WBC (4.8-10.8) K/uL RBC (4.40-5.90) Mil/uL Hgb (12.0-18.0) g/dL Hct (35.0-51.0) % MCV (80.0-94.0) fL MCH (27.0-31.0) pg MCHC (33.0-37.0) g/dL RDW (11.5-14.5) % Plt Count (130-400) K/uL MPV (7.2-11.7) fL Neut % (Auto) (50.0-75.0) % Lymph % (Auto) (20.0-40.0) % Tate % (Auto) (0.0-10.0) % Eos % (Auto) (0.0-4.0) % Baso % (Auto) (0.0-2.0) % Neut # (Auto) (1.8-7.0) K/uL Lymph # (Auto) (1.0-4.3) K/uL Tate # (Auto) (0.0-0.8) K/uL Eos # (Auto) (0.0-0.7) K/uL Baso # (Auto) (0.0-0.2) K/uL Neutrophils % (Manual) (50-75) % Lymphocytes % (Manual) (20-40) % Monocytes % (Manual) (0-10) % Myelocytes % (0-0) % Platelet Estimate (NORMAL) Hypochromasia (manual) Poikilocytosis (manual Anisocytosis (manual) Target Cells [place] Cells Puncture Site pCO2 (35-45) mm/Hg pO2 (80-100) mm/Hg HCO3 (21-28) mmol/L ABG pH (7.35-7.45) ABG Total CO2 (22-28) mmol/L ABG O2 Saturation (95-98) % ABG Base Excess (-2.0-3.0) mmol/L ABG Hemoglobin (11.7-17.4) g/dL ABG Carboxyhemoglobin (0.5-1.5) % POC ABG HHb (Measured) (0.0-5.0) % ABG Methemoglobin (0.0-3.0) % Parviz Test A-a O2 Difference mm/Hg Respiratory Index Hgb O2 Saturation (95.0-98.0) % Vent Mode Mechanical Rate FiO2 % Tidal Volume PEEP Sodium (132-148) mmol/L Potassium (3.6-5.2) mmol/L Chloride (98-107) mmol/L Carbon Dioxide (22-30) mmol/L Anion Gap (10-20) BUN (9-20) mg/dL Creatinine (0.8-1.5) mg/dL Est GFR ( Amer) Est GFR (Non-Af Amer) POC Glucose (mg/dL) 156 H (65-110) mg/dL Random Glucose (75-110) mg/dL Calcium (8.6-10.4) mg/dl Total Bilirubin (0.2-1.3) mg/dL AST (17-59) U/L ALT (21-72) U/L Alkaline Phosphatase (38-126) U/L Total Creatine Kinase (55-170) U/L Total Protein (6.3-8.3) g/dL Albumin (3.5-5.0) g/dL Globulin (2.2-3.9) gm/dL Albumin/Globulin Ratio (1.0-2.1) Procalcitonin (0.19-0.49) NG/ML Urine Osmolality 398 (300-1000) mosm/kg Ur Random Creatinine 26.8 mg/dL Ur Random Sodium 45 mmol/L CSF Oligoclonal Bands CSF HIV-1 DNA (PCR) Random Vancomycin 14.89 ug/mL West Nile RNA (RT-PCR) 12/07/17 12/07/17 12/07/17 Range/Units 11:19 11:19 06:18 WBC 12.0 H 12.5 H (4.8-10.8) K/uL RBC 3.43 L 3.43 L (4.40-5.90) Mil/uL Hgb 8.9 L 8.9 L (12.0-18.0) g/dL Hct 27.5 L 27.7 L (35.0-51.0) % MCV 80.2 80.7 (80.0-94.0) fL MCH 26.1 L 26.1 L (27.0-31.0) pg MCHC 32.6 L 32.3 L (33.0-37.0) g/dL RDW 16.4 H 16.9 H (11.5-14.5) % Plt Count 195 195 (130-400) K/uL MPV 10.6 11.2 (7.2-11.7) fL Neut % (Auto) 92.8 H 92.5 H (50.0-75.0) % Lymph % (Auto) 3.6 L 3.9 L (20.0-40.0) % Tate % (Auto) 3.5 3.5 (0.0-10.0) % Eos % (Auto) 0.0 0.0 (0.0-4.0) % Baso % (Auto) 0.1 0.1 (0.0-2.0) % Neut # (Auto) 11.1 H 11.5 H (1.8-7.0) K/uL Lymph # (Auto) 0.4 L 0.5 L (1.0-4.3) K/uL Tate # (Auto) 0.4 0.4 (0.0-0.8) K/uL Eos # (Auto) 0.0 0.0 (0.0-0.7) K/uL Baso # (Auto) 0.0 0.0 (0.0-0.2) K/uL Neutrophils % (Manual) 94 H 95 H (50-75) % Lymphocytes % (Manual) 3 L 3 L (20-40) % Monocytes % (Manual) 2 2 (0-10) % Myelocytes % 1 H (0-0) % Platelet Estimate Normal Normal (NORMAL) Hypochromasia (manual) Slight Slight Poikilocytosis (manual Slight Slight Anisocytosis (manual) Slight Slight Target Cells Slight [place] Cells Slight Puncture Site pCO2 (35-45) mm/Hg pO2 (80-100) mm/Hg HCO3 (21-28) mmol/L ABG pH (7.35-7.45) ABG Total CO2 (22-28) mmol/L ABG O2 Saturation (95-98) % ABG Base Excess (-2.0-3.0) mmol/L ABG Hemoglobin (11.7-17.4) g/dL ABG Carboxyhemoglobin (0.5-1.5) % POC ABG HHb (Measured) (0.0-5.0) % ABG Methemoglobin (0.0-3.0) % Parviz Test A-a O2 Difference mm/Hg Respiratory Index Hgb O2 Saturation (95.0-98.0) % Vent Mode Mechanical Rate FiO2 % Tidal Volume PEEP Sodium (132-148) mmol/L Potassium (3.6-5.2) mmol/L Chloride (98-107) mmol/L Carbon Dioxide (22-30) mmol/L Anion Gap (10-20) BUN (9-20) mg/dL Creatinine (0.8-1.5) mg/dL Est GFR ( Amer) Est GFR (Non-Af Amer) POC Glucose (mg/dL) (65-110) mg/dL Random Glucose (75-110) mg/dL Calcium (8.6-10.4) mg/dl Total Bilirubin (0.2-1.3) mg/dL AST (17-59) U/L ALT (21-72) U/L Alkaline Phosphatase (38-126) U/L Total Creatine Kinase < 20 L (55-170) U/L Total Protein (6.3-8.3) g/dL Albumin (3.5-5.0) g/dL Globulin (2.2-3.9) gm/dL Albumin/Globulin Ratio (1.0-2.1) Procalcitonin (0.19-0.49) NG/ML Urine Osmolality (300-1000) mosm/kg Ur Random Creatinine mg/dL Ur Random Sodium mmol/L CSF Oligoclonal Bands CSF HIV-1 DNA (PCR) Random Vancomycin ug/mL West Nile RNA (RT-PCR) 12/07/17 12/07/17 12/07/17 Range/Units 06:17 05:06 04:53 WBC (4.8-10.8) K/uL RBC (4.40-5.90) Mil/uL Hgb (12.0-18.0) g/dL Hct (35.0-51.0) % MCV (80.0-94.0) fL MCH (27.0-31.0) pg MCHC (33.0-37.0) g/dL RDW (11.5-14.5) % Plt Count (130-400) K/uL MPV (7.2-11.7) fL Neut % (Auto) (50.0-75.0) % Lymph % (Auto) (20.0-40.0) % Tate % (Auto) (0.0-10.0) % Eos % (Auto) (0.0-4.0) % Baso % (Auto) (0.0-2.0) % Neut # (Auto) (1.8-7.0) K/uL Lymph # (Auto) (1.0-4.3) K/uL Tate # (Auto) (0.0-0.8) K/uL Eos # (Auto) (0.0-0.7) K/uL Baso # (Auto) (0.0-0.2) K/uL Neutrophils % (Manual) (50-75) % Lymphocytes % (Manual) (20-40) % Monocytes % (Manual) (0-10) % Myelocytes % (0-0) % Platelet Estimate (NORMAL) Hypochromasia (manual) Poikilocytosis (manual Anisocytosis (manual) Target Cells [place] Cells Puncture Site Lr pCO2 33 L (35-45) mm/Hg pO2 79 L (80-100) mm/Hg HCO3 23.8 (21-28) mmol/L ABG pH 7.44 (7.35-7.45) ABG Total CO2 23.4 (22-28) mmol/L ABG O2 Saturation 98.7 H (95-98) % ABG Base Excess -1.4 (-2.0-3.0) mmol/L ABG Hemoglobin 8.7 L (11.7-17.4) g/dL ABG Carboxyhemoglobin 1.7 H (0.5-1.5) % POC ABG HHb (Measured) 1.3 (0.0-5.0) % ABG Methemoglobin 1.2 (0.0-3.0) % Parviz Test Pos A-a O2 Difference 236.0 mm/Hg Respiratory Index 3.0 Hgb O2 Saturation 95.8 (95.0-98.0) % Vent Mode Prvc Mechanical Rate 16 FiO2 50.0 % Tidal Volume 450 PEEP 5 Sodium 143 (132-148) mmol/L Potassium 3.3 L (3.6-5.2) mmol/L Chloride 107 (98-107) mmol/L Carbon Dioxide 23 (22-30) mmol/L Anion Gap 16 (10-20) BUN 100 H* (9-20) mg/dL Creatinine 2.7 H (0.8-1.5) mg/dL Est GFR ( Amer) 27 Est GFR (Non-Af Amer) 22 POC Glucose (mg/dL) 230 H (65-110) mg/dL Random Glucose 212 H (75-110) mg/dL Calcium 7.2 L (8.6-10.4) mg/dl Total Bilirubin 0.5 (0.2-1.3) mg/dL AST 38 (17-59) U/L ALT 63 (21-72) U/L Alkaline Phosphatase 98 (38-126) U/L Total Creatine Kinase (55-170) U/L Total Protein 4.9 L (6.3-8.3) g/dL Albumin 2.3 L (3.5-5.0) g/dL Globulin 2.6 (2.2-3.9) gm/dL Albumin/Globulin Ratio 0.9 L (1.0-2.1) Procalcitonin (0.19-0.49) NG/ML Urine Osmolality (300-1000) mosm/kg Ur Random Creatinine mg/dL Ur Random Sodium mmol/L CSF Oligoclonal Bands CSF HIV-1 DNA (PCR) Random Vancomycin ug/mL West Nile RNA (RT-PCR) 12/06/17 12/06/17 12/06/17 Range/Units 23:52 17:40 14:49 WBC (4.8-10.8) K/uL RBC (4.40-5.90) Mil/uL Hgb (12.0-18.0) g/dL Hct (35.0-51.0) % MCV (80.0-94.0) fL MCH (27.0-31.0) pg MCHC (33.0-37.0) g/dL RDW (11.5-14.5) % Plt Count (130-400) K/uL MPV (7.2-11.7) fL Neut % (Auto) (50.0-75.0) % Lymph % (Auto) (20.0-40.0) % Tate % (Auto) (0.0-10.0) % Eos % (Auto) (0.0-4.0) % Baso % (Auto) (0.0-2.0) % Neut # (Auto) (1.8-7.0) K/uL Lymph # (Auto) (1.0-4.3) K/uL Tate # (Auto) (0.0-0.8) K/uL Eos # (Auto) (0.0-0.7) K/uL Baso # (Auto) (0.0-0.2) K/uL Neutrophils % (Manual) (50-75) % Lymphocytes % (Manual) (20-40) % Monocytes % (Manual) (0-10) % Myelocytes % (0-0) % Platelet Estimate (NORMAL) Hypochromasia (manual) Poikilocytosis (manual Anisocytosis (manual) Target Cells [place] Cells Puncture Site pCO2 (35-45) mm/Hg pO2 (80-100) mm/Hg HCO3 (21-28) mmol/L ABG pH (7.35-7.45) ABG Total CO2 (22-28) mmol/L ABG O2 Saturation (95-98) % ABG Base Excess (-2.0-3.0) mmol/L ABG Hemoglobin (11.7-17.4) g/dL ABG Carboxyhemoglobin (0.5-1.5) % POC ABG HHb (Measured) (0.0-5.0) % ABG Methemoglobin (0.0-3.0) % Parviz Test A-a O2 Difference mm/Hg Respiratory Index Hgb O2 Saturation (95.0-98.0) % Vent Mode Mechanical Rate FiO2 % Tidal Volume PEEP Sodium (132-148) mmol/L Potassium (3.6-5.2) mmol/L Chloride (98-107) mmol/L Carbon Dioxide (22-30) mmol/L Anion Gap (10-20) BUN (9-20) mg/dL Creatinine (0.8-1.5) mg/dL Est GFR ( Amer) Est GFR (Non-Af Amer) POC Glucose (mg/dL) 267 H 271 H (65-110) mg/dL Random Glucose (75-110) mg/dL Calcium (8.6-10.4) mg/dl Total Bilirubin (0.2-1.3) mg/dL AST (17-59) U/L ALT (21-72) U/L Alkaline Phosphatase (38-126) U/L Total Creatine Kinase (55-170) U/L Total Protein (6.3-8.3) g/dL Albumin (3.5-5.0) g/dL Globulin (2.2-3.9) gm/dL Albumin/Globulin Ratio (1.0-2.1) Procalcitonin 1.15 H (0.19-0.49) NG/ML Urine Osmolality (300-1000) mosm/kg Ur Random Creatinine mg/dL Ur Random Sodium mmol/L CSF Oligoclonal Bands CSF HIV-1 DNA (PCR) Random Vancomycin ug/mL West Nile RNA (RT-PCR) 12/02/17 12/02/17 12/02/17 Range/Units 15:32 15:14 15:14 WBC (4.8-10.8) K/uL RBC (4.40-5.90) Mil/uL Hgb (12.0-18.0) g/dL Hct (35.0-51.0) % MCV (80.0-94.0) fL MCH (27.0-31.0) pg MCHC (33.0-37.0) g/dL RDW (11.5-14.5) % Plt Count (130-400) K/uL MPV (7.2-11.7) fL Neut % (Auto) (50.0-75.0) % Lymph % (Auto) (20.0-40.0) % Tate % (Auto) (0.0-10.0) % Eos % (Auto) (0.0-4.0) % Baso % (Auto) (0.0-2.0) % Neut # (Auto) (1.8-7.0) K/uL Lymph # (Auto) (1.0-4.3) K/uL Tate # (Auto) (0.0-0.8) K/uL Eos # (Auto) (0.0-0.7) K/uL Baso # (Auto) (0.0-0.2) K/uL Neutrophils % (Manual) (50-75) % Lymphocytes % (Manual) (20-40) % Monocytes % (Manual) (0-10) % Myelocytes % (0-0) % Platelet Estimate (NORMAL) Hypochromasia (manual) Poikilocytosis (manual Anisocytosis (manual) Target Cells [place] Cells Puncture Site pCO2 (35-45) mm/Hg pO2 (80-100) mm/Hg HCO3 (21-28) mmol/L ABG pH (7.35-7.45) ABG Total CO2 (22-28) mmol/L ABG O2 Saturation (95-98) % ABG Base Excess (-2.0-3.0) mmol/L ABG Hemoglobin (11.7-17.4) g/dL ABG Carboxyhemoglobin (0.5-1.5) % POC ABG HHb (Measured) (0.0-5.0) % ABG Methemoglobin (0.0-3.0) % Parviz Test A-a O2 Difference mm/Hg Respiratory Index Hgb O2 Saturation (95.0-98.0) % Vent Mode Mechanical Rate FiO2 % Tidal Volume PEEP Sodium (132-148) mmol/L Potassium (3.6-5.2) mmol/L Chloride (98-107) mmol/L Carbon Dioxide (22-30) mmol/L Anion Gap (10-20) BUN (9-20) mg/dL Creatinine (0.8-1.5) mg/dL Est GFR ( Amer) Est GFR (Non-Af Amer) POC Glucose (mg/dL) (65-110) mg/dL Random Glucose (75-110) mg/dL Calcium (8.6-10.4) mg/dl Total Bilirubin (0.2-1.3) mg/dL AST (17-59) U/L ALT (21-72) U/L Alkaline Phosphatase (38-126) U/L Total Creatine Kinase (55-170) U/L Total Protein (6.3-8.3) g/dL Albumin (3.5-5.0) g/dL Globulin (2.2-3.9) gm/dL Albumin/Globulin Ratio (1.0-2.1) Procalcitonin (0.19-0.49) NG/ML Urine Osmolality (300-1000) mosm/kg Ur Random Creatinine mg/dL Ur Random Sodium mmol/L CSF Oligoclonal Bands TNP CSF HIV-1 DNA (PCR) TNP Random Vancomycin ug/mL West Nile RNA (RT-PCR) TNP Laboratory Results - last 24 hr 12/02/17 12/02/17 12/02/17 15:14 15:14 15:32 WBC RBC Hgb Hct MCV MCH MCHC RDW Plt Count MPV Neut % (Auto) Lymph % (Auto) Tate % (Auto) Eos % (Auto) Baso % (Auto) Neut # (Auto) Lymph # (Auto) Tate # (Auto) Eos # (Auto) Baso # (Auto) Neutrophils % (Manual) Lymphocytes % (Manual) Monocytes % (Manual) Myelocytes % Platelet Estimate Hypochromasia (manual) Poikilocytosis (manual Anisocytosis (manual) Target Cells [place] Cells Puncture Site pCO2 pO2 HCO3 ABG pH ABG Total CO2 ABG O2 Saturation ABG Base Excess ABG Hemoglobin ABG Carboxyhemoglobin POC ABG HHb (Measured) ABG Methemoglobin Parviz Test A-a O2 Difference Respiratory Index Hgb O2 Saturation Vent Mode Mechanical Rate FiO2 Tidal Volume PEEP Sodium Potassium Chloride Carbon Dioxide Anion Gap BUN Creatinine Est GFR ( Amer) Est GFR (Non-Af Amer) POC Glucose (mg/dL) Random Glucose Calcium Total Bilirubin AST ALT Alkaline Phosphatase Total Creatine Kinase Total Protein Albumin Globulin Albumin/Globulin Ratio Procalcitonin Urine Osmolality Ur Random Creatinine Ur Random Sodium CSF Oligoclonal Bands TNP CSF HIV-1 DNA (PCR) TNP Random Vancomycin West Nile RNA (RT-PCR) TNP 12/06/17 12/06/17 12/06/17 14:49 17:40 23:52 WBC RBC Hgb Hct MCV MCH MCHC RDW Plt Count MPV Neut % (Auto) Lymph % (Auto) Tate % (Auto) Eos % (Auto) Baso % (Auto) Neut # (Auto) Lymph # (Auto) Tate # (Auto) Eos # (Auto) Baso # (Auto) Neutrophils % (Manual) Lymphocytes % (Manual) Monocytes % (Manual) Myelocytes % Platelet Estimate Hypochromasia (manual) Poikilocytosis (manual Anisocytosis (manual) Target Cells [place] Cells Puncture Site pCO2 pO2 HCO3 ABG pH ABG Total CO2 ABG O2 Saturation ABG Base Excess ABG Hemoglobin ABG Carboxyhemoglobin POC ABG HHb (Measured) ABG Methemoglobin Parviz Test A-a O2 Difference Respiratory Index Hgb O2 Saturation Vent Mode Mechanical Rate FiO2 Tidal Volume PEEP Sodium Potassium Chloride Carbon Dioxide Anion Gap BUN Creatinine Est GFR ( Amer) Est GFR (Non-Af Amer) POC Glucose (mg/dL) 271 H 267 H Random Glucose Calcium Total Bilirubin AST ALT Alkaline Phosphatase Total Creatine Kinase Total Protein Albumin Globulin Albumin/Globulin Ratio Procalcitonin 1.15 H Urine Osmolality Ur Random Creatinine Ur Random Sodium CSF Oligoclonal Bands CSF HIV-1 DNA (PCR) Random Vancomycin West Nile RNA (RT-PCR) 12/07/17 12/07/17 12/07/17 04:53 05:06 06:17 WBC RBC Hgb Hct MCV MCH MCHC RDW Plt Count MPV Neut % (Auto) Lymph % (Auto) Tate % (Auto) Eos % (Auto) Baso % (Auto) Neut # (Auto) Lymph # (Auto) Tate # (Auto) Eos # (Auto) Baso # (Auto) Neutrophils % (Manual) Lymphocytes % (Manual) Monocytes % (Manual) Myelocytes % Platelet Estimate Hypochromasia (manual) Poikilocytosis (manual Anisocytosis (manual) Target Cells [place] Cells Puncture Site Lr pCO2 33 L pO2 79 L HCO3 23.8 ABG pH 7.44 ABG Total CO2 23.4 ABG O2 Saturation 98.7 H ABG Base Excess -1.4 ABG Hemoglobin 8.7 L ABG Carboxyhemoglobin 1.7 H POC ABG HHb (Measured) 1.3 ABG Methemoglobin 1.2 Parviz Test Pos A-a O2 Difference 236.0 Respiratory Index 3.0 Hgb O2 Saturation 95.8 Vent Mode Prvc Mechanical Rate 16 FiO2 50.0 Tidal Volume 450 PEEP 5 Sodium 143 Potassium 3.3 L Chloride 107 Carbon Dioxide 23 Anion Gap 16 BUN 100 H* Creatinine 2.7 H Est GFR ( Amer) 27 Est GFR (Non-Af Amer) 22 POC Glucose (mg/dL) 230 H Random Glucose 212 H Calcium 7.2 L Total Bilirubin 0.5 AST 38 ALT 63 Alkaline Phosphatase 98 Total Creatine Kinase Total Protein 4.9 L Albumin 2.3 L Globulin 2.6 Albumin/Globulin Ratio 0.9 L Procalcitonin Urine Osmolality Ur Random Creatinine Ur Random Sodium CSF Oligoclonal Bands CSF HIV-1 DNA (PCR) Random Vancomycin West Nile RNA (RT-PCR) 12/07/17 12/07/17 12/07/17 06:18 11:19 11:19 WBC 12.5 H 12.0 H RBC 3.43 L 3.43 L Hgb 8.9 L 8.9 L Hct 27.7 L 27.5 L MCV 80.7 80.2 MCH 26.1 L 26.1 L MCHC 32.3 L 32.6 L RDW 16.9 H 16.4 H Plt Count 195 195 MPV 11.2 10.6 Neut % (Auto) 92.5 H 92.8 H Lymph % (Auto) 3.9 L 3.6 L Tate % (Auto) 3.5 3.5 Eos % (Auto) 0.0 0.0 Baso % (Auto) 0.1 0.1 Neut # (Auto) 11.5 H 11.1 H Lymph # (Auto) 0.5 L 0.4 L Tate # (Auto) 0.4 0.4 Eos # (Auto) 0.0 0.0 Baso # (Auto) 0.0 0.0 Neutrophils % (Manual) 95 H 94 H Lymphocytes % (Manual) 3 L 3 L Monocytes % (Manual) 2 2 Myelocytes % 1 H Platelet Estimate Normal Normal Hypochromasia (manual) Slight Slight Poikilocytosis (manual Slight Slight Anisocytosis (manual) Slight Slight Target Cells Slight [place]anni Cells Slight Puncture Site pCO2 pO2 HCO3 ABG pH ABG Total CO2 ABG O2 Saturation ABG Base Excess ABG Hemoglobin ABG Carboxyhemoglobin POC ABG HHb (Measured) ABG Methemoglobin Parviz Test A-a O2 Difference Respiratory Index Hgb O2 Saturation Vent Mode Mechanical Rate FiO2 Tidal Volume PEEP Sodium Potassium Chloride Carbon Dioxide Anion Gap BUN Creatinine Est GFR ( Amer) Est GFR (Non-Af Amer) POC Glucose (mg/dL) Random Glucose Calcium Total Bilirubin AST ALT Alkaline Phosphatase Total Creatine Kinase < 20 L Total Protein Albumin Globulin Albumin/Globulin Ratio Procalcitonin Urine Osmolality Ur Random Creatinine Ur Random Sodium CSF Oligoclonal Bands CSF HIV-1 DNA (PCR) Random Vancomycin West Nile RNA (RT-PCR) 12/07/17 12/07/17 12/07/17 11:19 11:19 11:47 WBC RBC Hgb Hct MCV MCH MCHC RDW Plt Count MPV Neut % (Auto) Lymph % (Auto) Tate % (Auto) Eos % (Auto) Baso % (Auto) Neut # (Auto) Lymph # (Auto) Tate # (Auto) Eos # (Auto) Baso # (Auto) Neutrophils % (Manual) Lymphocytes % (Manual) Monocytes % (Manual) Myelocytes % Platelet Estimate Hypochromasia (manual) Poikilocytosis (manual Anisocytosis (manual) Target Cells [place] Cells Puncture Site pCO2 pO2 HCO3 ABG pH ABG Total CO2 ABG O2 Saturation ABG Base Excess ABG Hemoglobin ABG Carboxyhemoglobin POC ABG HHb (Measured) ABG Methemoglobin Parviz Test A-a O2 Difference Respiratory Index Hgb O2 Saturation Vent Mode Mechanical Rate FiO2 Tidal Volume PEEP Sodium Potassium Chloride Carbon Dioxide Anion Gap BUN Creatinine Est GFR ( Amer) Est GFR (Non-Af Amer) POC Glucose (mg/dL) 156 H Random Glucose Calcium Total Bilirubin AST ALT Alkaline Phosphatase Total Creatine Kinase Total Protein Albumin Globulin Albumin/Globulin Ratio Procalcitonin Urine Osmolality 398 Ur Random Creatinine 26.8 Ur Random Sodium 45 CSF Oligoclonal Bands CSF HIV-1 DNA (PCR) Random Vancomycin 14.89 West Nile RNA (RT-PCR) Fingerstick Blood Sugar Results: 156 Review of Systems - Review of Systems Systems not reviewed;Unavailable: Acuity of Condition Assessment/Plan - Assessment and Plan (Free Text) Assessment: 87 y/o male with pmx of hydrocephalus requiring a shunt who was recently admitted to [facility] for respiratory distress. Patient was transferred to [facility] and brought back to [facility] for same complaint. Plan: Respiratory distress: intubated to protect airway continue ventilation suspect VQ mismatch 2nd aspiration staph/GPC, continue bronchodilators chest ct w/o contrast showed moderate pleurel effusion, CHF vs. Portal hypertension, findings suspicious PNA in right lung apex, gallstones and fluid adjacent to gallbladder, 2.6cm density in the Right upper lobe U/S for Pleural Effusion. Results showed not enough fluid to have pigtail cath placment. Will continue to watch. Continue CPAP trials today. ABG ordered. Will f/u with results. Sepsis serial lactic LP reveals no WBC, non reacitive to VDRL, elevated protein and glucose. no hydrocephalus as presusre only 5 de-escalate abx, pending HSV PCR continue vanco/aztronam/doxy repeat procal 1.15 Repeat vancomycin level Steroids Discontinued. AMS EEG pending suspect chronic -continue peg tube feeds CAD/NSTEMI/P. A-fib./flutter: asa, statin. Cardizem 60mg Q6 obtain cardiology eval,monitor to keep MAP >65, Echo: EF 50%, mild to moderate concentric LVH, and mild M.R. HR controlled today Lopressor changed to 25mg PO Q6 priscila. Continue Heparin 5000 units sc q8. SIMON Creatinine 2.7 today. Slight improvement from prior day. 2nd sepsis/hypotension avoid nephrotoxic drgus Continue vancomycin, oral mucomyst Urine sodium, creatine, osm ordered. Will f/u with results. DVT ppx heparin -supplement discontinued at this time. -pud ppx pepcid -d/c droplet meningitis ruled out/MRSA contact isolation -bgm q6hrs, novalog q6hrs cc time 35 minutes <Bam Hoyos - Last Filed: 12/07/17 18:36> CCU Objective - Vital Signs / Intake & Output Vital Signs (Last 4 hours): Vital Signs Temp Pulse Resp BP Pulse Ox 12/07/17 18:01 89 25 H 130/67 100 12/07/17 18:00 90 20 100 12/07/17 17:01 127 H 19 149/63 100 12/07/17 17:00 124 H 15 99 12/07/17 16:00 99 F 134 H 17 143/85 99 12/07/17 15:00 107 H 19 158/76 H 99 Intake and Output (Last 8hrs): Intake & Output 12/07/17 12/07/17 12/07/17 06:59 14:59 22:59 Intake Total 410 600 10 Output Total 720 800 400 Balance -310 -200 -390 Weight 208 lb 210 lb Intake: Intake, IV Amount 200 600 Right Distal Port 600 Internal Jugular Right Medial Port 200 Internal Jugular Tube Feeding 150 0 10 Other 60 Output: Urine 720 800 400 Urethral (Morgan) 720 800 400 Other: # Bowel Movements 1 - Medications Active Medications: Active Medications Generic Name Dose Route Start Last Admin Trade Name Freq PRN Reason Stop Dose Admin Acetaminophen 650 mg 12/02/17 07:49 12/04/17 15:26 Tylenol 650mg/20.3ml Solution Ud PO 650 mg Q6 PRN Administration fever Aspirin 81 mg 12/02/17 10:00 12/07/17 10:50 Aspirin Chewable PO 81 mg DAILY PRISCILA Administration Bisacodyl 10 mg 12/03/17 11:57 Dulcolax IL Q24H PRN Constipation Diltiazem HCl 60 mg 12/05/17 12:00 12/07/17 17:35 Cardizem PO 60 mg Q6 PRISCILA Administration Famotidine 20 mg 12/07/17 12:30 12/07/17 13:04 Pepcid IVP Not Given DAILY PRISCILA Doxycycline Hyclate 100 mg/ 100 mls @ 100 mls/hr 12/03/17 12:30 12/07/17 12: 20 Sodium Chloride IVPB 100 mls/hr Q12H PRISCILA Administration Linezolid 600 mg in 300 mls @ 200 mls/hr 12/05/17 10:00 12/07/17 12:20 Zyvox 600mg/300ml D5w IVPB 200 mls/hr Q12 PRISCILA Administration Aztreonam 1 gm/ Sodium 100 mls @ 100 mls/hr 12/05/17 13:00 12/07/17 12:20 Chloride IVPB 100 mls/hr Q12H PRISCILA Administration Insulin Aspart 0 unit 12/06/17 12:00 12/07/17 18:23 Novolog SC 4 unit Q6 PRISCILA Administration Protocol Latanoprost 0 ml 12/01/17 23:45 12/06/17 21:31 Xalatan Opht OD 2.5 ml HS PRISCILA Administration Metoprolol Tartrate 5 mg 12/06/17 18:00 12/07/17 17:36 Lopressor IVP 5 mg Q6 PRISCILA Administration Sodium Bicarbonate 650 mg 12/06/17 18:00 12/07/17 17:35 Sodium Bicarbonate Tab PO 650 mg BID PRISCILA Administration Sucralfate 1 gm 12/03/17 18:00 12/07/17 17:35 Carafate Oral Susp PO 1 gm TID PRISCILA Administration - Patient Studies Lab Studies: Microbiology Studies 12/02/17 15:20 Gram Stain - Final Cerebral Spinal Fluid CSF Culture - Final No growth. Lab Studies 12/07/17 12/07/17 12/07/17 Range/Units 17:52 11:47 11:19 WBC (4.8-10.8) K/uL RBC (4.40-5.90) Mil/uL Hgb (12.0-18.0) g/dL Hct (35.0-51.0) % MCV (80.0-94.0) fL MCH (27.0-31.0) pg MCHC (33.0-37.0) g/dL RDW (11.5-14.5) % Plt Count (130-400) K/uL MPV (7.2-11.7) fL Neut % (Auto) (50.0-75.0) % Lymph % (Auto) (20.0-40.0) % Tate % (Auto) (0.0-10.0) % Eos % (Auto) (0.0-4.0) % Baso % (Auto) (0.0-2.0) % Neut # (Auto) (1.8-7.0) K/uL Lymph # (Auto) (1.0-4.3) K/uL Tate # (Auto) (0.0-0.8) K/uL Eos # (Auto) (0.0-0.7) K/uL Baso # (Auto) (0.0-0.2) K/uL Neutrophils % (Manual) (50-75) % Lymphocytes % (Manual) (20-40) % Monocytes % (Manual) (0-10) % Myelocytes % (0-0) % Platelet Estimate (NORMAL) Hypochromasia (manual) Poikilocytosis (manual Anisocytosis (manual) Target Cells [place] Cells Puncture Site pCO2 (35-45) mm/Hg pO2 (80-100) mm/Hg HCO3 (21-28) mmol/L ABG pH (7.35-7.45) ABG Total CO2 (22-28) mmol/L ABG O2 Saturation (95-98) % ABG Base Excess (-2.0-3.0) mmol/L ABG Hemoglobin (11.7-17.4) g/dL ABG Carboxyhemoglobin (0.5-1.5) % POC ABG HHb (Measured) (0.0-5.0) % ABG Methemoglobin (0.0-3.0) % Parviz Test A-a O2 Difference mm/Hg Respiratory Index Hgb O2 Saturation (95.0-98.0) % Vent Mode Mechanical Rate FiO2 % Tidal Volume PEEP Sodium (132-148) mmol/L Potassium (3.6-5.2) mmol/L Chloride (98-107) mmol/L Carbon Dioxide (22-30) mmol/L Anion Gap (10-20) BUN (9-20) mg/dL Creatinine (0.8-1.5) mg/dL Est GFR ( Amer) Est GFR (Non-Af Amer) POC Glucose (mg/dL) 241 H 156 H (65-110) mg/dL Random Glucose (75-110) mg/dL Calcium (8.6-10.4) mg/dl Total Bilirubin (0.2-1.3) mg/dL AST (17-59) U/L ALT (21-72) U/L Alkaline Phosphatase (38-126) U/L Total Creatine Kinase (55-170) U/L Total Protein (6.3-8.3) g/dL Albumin (3.5-5.0) g/dL Globulin (2.2-3.9) gm/dL Albumin/Globulin Ratio (1.0-2.1) Urine Osmolality (300-1000) mosm/kg Ur Random Creatinine mg/dL Ur Random Sodium mmol/L CSF Oligoclonal Bands CSF HIV-1 DNA (PCR) Random Vancomycin 14.89 ug/mL West Nile RNA (RT-PCR) 12/07/17 12/07/17 12/07/17 Range/Units 11:19 11:19 11:19 WBC 12.0 H (4.8-10.8) K/uL RBC 3.43 L (4.40-5.90) Mil/uL Hgb 8.9 L (12.0-18.0) g/dL Hct 27.5 L (35.0-51.0) % MCV 80.2 (80.0-94.0) fL MCH 26.1 L (27.0-31.0) pg MCHC 32.6 L (33.0-37.0) g/dL RDW 16.4 H (11.5-14.5) % Plt Count 195 (130-400) K/uL MPV 10.6 (7.2-11.7) fL Neut % (Auto) 92.8 H (50.0-75.0) % Lymph % (Auto) 3.6 L (20.0-40.0) % Tate % (Auto) 3.5 (0.0-10.0) % Eos % (Auto) 0.0 (0.0-4.0) % Baso % (Auto) 0.1 (0.0-2.0) % Neut # (Auto) 11.1 H (1.8-7.0) K/uL Lymph # (Auto) 0.4 L (1.0-4.3) K/uL Tate # (Auto) 0.4 (0.0-0.8) K/uL Eos # (Auto) 0.0 (0.0-0.7) K/uL Baso # (Auto) 0.0 (0.0-0.2) K/uL Neutrophils % (Manual) 94 H (50-75) % Lymphocytes % (Manual) 3 L (20-40) % Monocytes % (Manual) 2 (0-10) % Myelocytes % 1 H (0-0) % Platelet Estimate Normal (NORMAL) Hypochromasia (manual) Slight Poikilocytosis (manual Slight Anisocytosis (manual) Slight Target Cells [place] Cells Puncture Site pCO2 (35-45) mm/Hg pO2 (80-100) mm/Hg HCO3 (21-28) mmol/L ABG pH (7.35-7.45) ABG Total CO2 (22-28) mmol/L ABG O2 Saturation (95-98) % ABG Base Excess (-2.0-3.0) mmol/L ABG Hemoglobin (11.7-17.4) g/dL ABG Carboxyhemoglobin (0.5-1.5) % POC ABG HHb (Measured) (0.0-5.0) % ABG Methemoglobin (0.0-3.0) % Aprviz Test A-a O2 Difference mm/Hg Respiratory Index Hgb O2 Saturation (95.0-98.0) % Vent Mode Mechanical Rate FiO2 % Tidal Volume PEEP Sodium (132-148) mmol/L Potassium (3.6-5.2) mmol/L Chloride (98-107) mmol/L Carbon Dioxide (22-30) mmol/L Anion Gap (10-20) BUN (9-20) mg/dL Creatinine (0.8-1.5) mg/dL Est GFR ( Amer) Est GFR (Non-Af Amer) POC Glucose (mg/dL) (65-110) mg/dL Random Glucose (75-110) mg/dL Calcium (8.6-10.4) mg/dl Total Bilirubin (0.2-1.3) mg/dL AST (17-59) U/L ALT (21-72) U/L Alkaline Phosphatase (38-126) U/L Total Creatine Kinase < 20 L (55-170) U/L Total Protein (6.3-8.3) g/dL Albumin (3.5-5.0) g/dL Globulin (2.2-3.9) gm/dL Albumin/Globulin Ratio (1.0-2.1) Urine Osmolality 398 (300-1000) mosm/kg Ur Random Creatinine 26.8 mg/dL Ur Random Sodium 45 mmol/L CSF Oligoclonal Bands CSF HIV-1 DNA (PCR) Random Vancomycin ug/mL West Nile RNA (RT-PCR) 12/07/17 12/07/17 12/07/17 Range/Units 06:18 06:17 05:06 WBC 12.5 H (4.8-10.8) K/uL RBC 3.43 L (4.40-5.90) Mil/uL Hgb 8.9 L (12.0-18.0) g/dL Hct 27.7 L (35.0-51.0) % MCV 80.7 (80.0-94.0) fL MCH 26.1 L (27.0-31.0) pg MCHC 32.3 L (33.0-37.0) g/dL RDW 16.9 H (11.5-14.5) % Plt Count 195 (130-400) K/uL MPV 11.2 (7.2-11.7) fL Neut % (Auto) 92.5 H (50.0-75.0) % Lymph % (Auto) 3.9 L (20.0-40.0) % Tate % (Auto) 3.5 (0.0-10.0) % Eos % (Auto) 0.0 (0.0-4.0) % Baso % (Auto) 0.1 (0.0-2.0) % Neut # (Auto) 11.5 H (1.8-7.0) K/uL Lymph # (Auto) 0.5 L (1.0-4.3) K/uL Tate # (Auto) 0.4 (0.0-0.8) K/uL Eos # (Auto) 0.0 (0.0-0.7) K/uL Baso # (Auto) 0.0 (0.0-0.2) K/uL Neutrophils % (Manual) 95 H (50-75) % Lymphocytes % (Manual) 3 L (20-40) % Monocytes % (Manual) 2 (0-10) % Myelocytes % (0-0) % Platelet Estimate Normal (NORMAL) Hypochromasia (manual) Slight Poikilocytosis (manual Slight Anisocytosis (manual) Slight Target Cells Slight [place] Cells Slight Puncture Site Lr pCO2 33 L (35-45) mm/Hg pO2 79 L (80-100) mm/Hg HCO3 23.8 (21-28) mmol/L ABG pH 7.44 (7.35-7.45) ABG Total CO2 23.4 (22-28) mmol/L ABG O2 Saturation 98.7 H (95-98) % ABG Base Excess -1.4 (-2.0-3.0) mmol/L ABG Hemoglobin 8.7 L (11.7-17.4) g/dL ABG Carboxyhemoglobin 1.7 H (0.5-1.5) % POC ABG HHb (Measured) 1.3 (0.0-5.0) % ABG Methemoglobin 1.2 (0.0-3.0) % Parvzi Test Pos A-a O2 Difference 236.0 mm/Hg Respiratory Index 3.0 Hgb O2 Saturation 95.8 (95.0-98.0) % Vent Mode Prvc Mechanical Rate 16 FiO2 50.0 % Tidal Volume 450 PEEP 5 Sodium 143 (132-148) mmol/L Potassium 3.3 L (3.6-5.2) mmol/L Chloride 107 (98-107) mmol/L Carbon Dioxide 23 (22-30) mmol/L Anion Gap 16 (10-20) BUN 100 H* (9-20) mg/dL Creatinine 2.7 H (0.8-1.5) mg/dL Est GFR ( Amer) 27 Est GFR (Non-Af Amer) 22 POC Glucose (mg/dL) (65-110) mg/dL Random Glucose 212 H (75-110) mg/dL Calcium 7.2 L (8.6-10.4) mg/dl Total Bilirubin 0.5 (0.2-1.3) mg/dL AST 38 (17-59) U/L ALT 63 (21-72) U/L Alkaline Phosphatase 98 (38-126) U/L Total Creatine Kinase (55-170) U/L Total Protein 4.9 L (6.3-8.3) g/dL Albumin 2.3 L (3.5-5.0) g/dL Globulin 2.6 (2.2-3.9) gm/dL Albumin/Globulin Ratio 0.9 L (1.0-2.1) Urine Osmolality (300-1000) mosm/kg Ur Random Creatinine mg/dL Ur Random Sodium mmol/L CSF Oligoclonal Bands CSF HIV-1 DNA (PCR) Random Vancomycin ug/mL West Nile RNA (RT-PCR) 12/07/17 12/06/17 12/02/17 Range/Units 04:53 23:52 15:32 WBC (4.8-10.8) K/uL RBC (4.40-5.90) Mil/uL Hgb (12.0-18.0) g/dL Hct (35.0-51.0) % MCV (80.0-94.0) fL MCH (27.0-31.0) pg MCHC (33.0-37.0) g/dL RDW (11.5-14.5) % Plt Count (130-400) K/uL MPV (7.2-11.7) fL Neut % (Auto) (50.0-75.0) % Lymph % (Auto) (20.0-40.0) % Tate % (Auto) (0.0-10.0) % Eos % (Auto) (0.0-4.0) % Baso % (Auto) (0.0-2.0) % Neut # (Auto) (1.8-7.0) K/uL Lymph # (Auto) (1.0-4.3) K/uL Tate # (Auto) (0.0-0.8) K/uL Eos # (Auto) (0.0-0.7) K/uL Baso # (Auto) (0.0-0.2) K/uL Neutrophils % (Manual) (50-75) % Lymphocytes % (Manual) (20-40) % Monocytes % (Manual) (0-10) % Myelocytes % (0-0) % Platelet Estimate (NORMAL) Hypochromasia (manual) Poikilocytosis (manual Anisocytosis (manual) Target Cells [place] Cells Puncture Site pCO2 (35-45) mm/Hg pO2 (80-100) mm/Hg HCO3 (21-28) mmol/L ABG pH (7.35-7.45) ABG Total CO2 (22-28) mmol/L ABG O2 Saturation (95-98) % ABG Base Excess (-2.0-3.0) mmol/L ABG Hemoglobin (11.7-17.4) g/dL ABG Carboxyhemoglobin (0.5-1.5) % POC ABG HHb (Measured) (0.0-5.0) % ABG Methemoglobin (0.0-3.0) % Parviz Test A-a O2 Difference mm/Hg Respiratory Index Hgb O2 Saturation (95.0-98.0) % Vent Mode Mechanical Rate FiO2 % Tidal Volume PEEP Sodium (132-148) mmol/L Potassium (3.6-5.2) mmol/L Chloride (98-107) mmol/L Carbon Dioxide (22-30) mmol/L Anion Gap (10-20) BUN (9-20) mg/dL Creatinine (0.8-1.5) mg/dL Est GFR ( Amer) Est GFR (Non-Af Amer) POC Glucose (mg/dL) 230 H 267 H (65-110) mg/dL Random Glucose (75-110) mg/dL Calcium (8.6-10.4) mg/dl Total Bilirubin (0.2-1.3) mg/dL AST (17-59) U/L ALT (21-72) U/L Alkaline Phosphatase (38-126) U/L Total Creatine Kinase (55-170) U/L Total Protein (6.3-8.3) g/dL Albumin (3.5-5.0) g/dL Globulin (2.2-3.9) gm/dL Albumin/Globulin Ratio (1.0-2.1) Urine Osmolality (300-1000) mosm/kg Ur Random Creatinine mg/dL Ur Random Sodium mmol/L CSF Oligoclonal Bands TNP CSF HIV-1 DNA (PCR) Random Vancomycin ug/mL West Nile RNA (RT-PCR) 12/02/17 12/02/17 Range/Units 15:14 15:14 WBC (4.8-10.8) K/uL RBC (4.40-5.90) Mil/uL Hgb (12.0-18.0) g/dL Hct (35.0-51.0) % MCV (80.0-94.0) fL MCH (27.0-31.0) pg MCHC (33.0-37.0) g/dL RDW (11.5-14.5) % Plt Count (130-400) K/uL MPV (7.2-11.7) fL Neut % (Auto) (50.0-75.0) % Lymph % (Auto) (20.0-40.0) % Tate % (Auto) (0.0-10.0) % Eos % (Auto) (0.0-4.0) % Baso % (Auto) (0.0-2.0) % Neut # (Auto) (1.8-7.0) K/uL Lymph # (Auto) (1.0-4.3) K/uL Tate # (Auto) (0.0-0.8) K/uL Eos # (Auto) (0.0-0.7) K/uL Baso # (Auto) (0.0-0.2) K/uL Neutrophils % (Manual) (50-75) % Lymphocytes % (Manual) (20-40) % Monocytes % (Manual) (0-10) % Myelocytes % (0-0) % Platelet Estimate (NORMAL) Hypochromasia (manual) Poikilocytosis (manual Anisocytosis (manual) Target Cells [place] Cells Puncture Site pCO2 (35-45) mm/Hg pO2 (80-100) mm/Hg HCO3 (21-28) mmol/L ABG pH (7.35-7.45) ABG Total CO2 (22-28) mmol/L ABG O2 Saturation (95-98) % ABG Base Excess (-2.0-3.0) mmol/L ABG Hemoglobin (11.7-17.4) g/dL ABG Carboxyhemoglobin (0.5-1.5) % POC ABG HHb (Measured) (0.0-5.0) % ABG Methemoglobin (0.0-3.0) % Parviz Test A-a O2 Difference mm/Hg Respiratory Index Hgb O2 Saturation (95.0-98.0) % Vent Mode Mechanical Rate FiO2 % Tidal Volume PEEP Sodium (132-148) mmol/L Potassium (3.6-5.2) mmol/L Chloride (98-107) mmol/L Carbon Dioxide (22-30) mmol/L Anion Gap (10-20) BUN (9-20) mg/dL Creatinine (0.8-1.5) mg/dL Est GFR ( Amer) Est GFR (Non-Af Amer) POC Glucose (mg/dL) (65-110) mg/dL Random Glucose (75-110) mg/dL Calcium (8.6-10.4) mg/dl Total Bilirubin (0.2-1.3) mg/dL AST (17-59) U/L ALT (21-72) U/L Alkaline Phosphatase (38-126) U/L Total Creatine Kinase (55-170) U/L Total Protein (6.3-8.3) g/dL Albumin (3.5-5.0) g/dL Globulin (2.2-3.9) gm/dL Albumin/Globulin Ratio (1.0-2.1) Urine Osmolality (300-1000) mosm/kg Ur Random Creatinine mg/dL Ur Random Sodium mmol/L CSF Oligoclonal Bands CSF HIV-1 DNA (PCR) TNP Random Vancomycin ug/mL [place] Nile RNA (RT-PCR) TNP Laboratory Results - last 24 hr 12/02/17 12/02/17 12/02/17 15:14 15:14 15:32 WBC RBC Hgb Hct MCV MCH MCHC RDW Plt Count MPV Neut % (Auto) Lymph % (Auto) Tate % (Auto) Eos % (Auto) Baso % (Auto) Neut # (Auto) Lymph # (Auto) Tate # (Auto) Eos # (Auto) Baso # (Auto) Neutrophils % (Manual) Lymphocytes % (Manual) Monocytes % (Manual) Myelocytes % Platelet Estimate Hypochromasia (manual) Poikilocytosis (manual Anisocytosis (manual) Target Cells [place] Cells Puncture Site pCO2 pO2 HCO3 ABG pH ABG Total CO2 ABG O2 Saturation ABG Base Excess ABG Hemoglobin ABG Carboxyhemoglobin POC ABG HHb (Measured) ABG Methemoglobin Parviz Test A-a O2 Difference Respiratory Index Hgb O2 Saturation Vent Mode Mechanical Rate FiO2 Tidal Volume PEEP Sodium Potassium Chloride Carbon Dioxide Anion Gap BUN Creatinine Est GFR ( Amer) Est GFR (Non-Af Amer) POC Glucose (mg/dL) Random Glucose Calcium Total Bilirubin AST ALT Alkaline Phosphatase Total Creatine Kinase Total Protein Albumin Globulin Albumin/Globulin Ratio Urine Osmolality Ur Random Creatinine Ur Random Sodium CSF Oligoclonal Bands TNP CSF HIV-1 DNA (PCR) TNP Random Vancomycin West Nile RNA (RT-PCR) TNP 12/06/17 12/07/17 12/07/17 23:52 04:53 05:06 WBC RBC Hgb Hct MCV MCH MCHC RDW Plt Count MPV Neut % (Auto) Lymph % (Auto) Tate % (Auto) Eos % (Auto) Baso % (Auto) Neut # (Auto) Lymph # (Auto) Tate # (Auto) Eos # (Auto) Baso # (Auto) Neutrophils % (Manual) Lymphocytes % (Manual) Monocytes % (Manual) Myelocytes % Platelet Estimate Hypochromasia (manual) Poikilocytosis (manual Anisocytosis (manual) Target Cells [place] Cells Puncture Site Lr pCO2 33 L pO2 79 L HCO3 23.8 ABG pH 7.44 ABG Total CO2 23.4 ABG O2 Saturation 98.7 H ABG Base Excess -1.4 ABG Hemoglobin 8.7 L ABG Carboxyhemoglobin 1.7 H POC ABG HHb (Measured) 1.3 ABG Methemoglobin 1.2 Parviz Test Pos A-a O2 Difference 236.0 Respiratory Index 3.0 Hgb O2 Saturation 95.8 Vent Mode Prvc Mechanical Rate 16 FiO2 50.0 Tidal Volume 450 PEEP 5 Sodium Potassium Chloride Carbon Dioxide Anion Gap BUN Creatinine Est GFR ( Amer) Est GFR (Non-Af Amer) POC Glucose (mg/dL) 267 H 230 H Random Glucose Calcium Total Bilirubin AST ALT Alkaline Phosphatase Total Creatine Kinase Total Protein Albumin Globulin Albumin/Globulin Ratio Urine Osmolality Ur Random Creatinine Ur Random Sodium CSF Oligoclonal Bands CSF HIV-1 DNA (PCR) Random Vancomycin West Nile RNA (RT-PCR) 12/07/17 12/07/17 12/07/17 06:17 06:18 11:19 WBC 12.5 H 12.0 H RBC 3.43 L 3.43 L Hgb 8.9 L 8.9 L Hct 27.7 L 27.5 L MCV 80.7 80.2 MCH 26.1 L 26.1 L MCHC 32.3 L 32.6 L RDW 16.9 H 16.4 H Plt Count 195 195 MPV 11.2 10.6 Neut % (Auto) 92.5 H 92.8 H Lymph % (Auto) 3.9 L 3.6 L Tate % (Auto) 3.5 3.5 Eos % (Auto) 0.0 0.0 Baso % (Auto) 0.1 0.1 Neut # (Auto) 11.5 H 11.1 H Lymph # (Auto) 0.5 L 0.4 L Tate # (Auto) 0.4 0.4 Eos # (Auto) 0.0 0.0 Baso # (Auto) 0.0 0.0 Neutrophils % (Manual) 95 H 94 H Lymphocytes % (Manual) 3 L 3 L Monocytes % (Manual) 2 2 Myelocytes % 1 H Platelet Estimate Normal Normal Hypochromasia (manual) Slight Slight Poikilocytosis (manual Slight Slight Anisocytosis (manual) Slight Slight Target Cells Slight [place] Cells Slight Puncture Site pCO2 pO2 HCO3 ABG pH ABG Total CO2 ABG O2 Saturation ABG Base Excess ABG Hemoglobin ABG Carboxyhemoglobin POC ABG HHb (Measured) ABG Methemoglobin Parviz Test A-a O2 Difference Respiratory Index Hgb O2 Saturation Vent Mode Mechanical Rate FiO2 Tidal Volume PEEP Sodium 143 Potassium 3.3 L Chloride 107 Carbon Dioxide 23 Anion Gap 16 BUN 100 H* Creatinine 2.7 H Est GFR ( Amer) 27 Est GFR (Non-Af Amer) 22 POC Glucose (mg/dL) Random Glucose 212 H Calcium 7.2 L Total Bilirubin 0.5 AST 38 ALT 63 Alkaline Phosphatase 98 Total Creatine Kinase Total Protein 4.9 L Albumin 2.3 L Globulin 2.6 Albumin/Globulin Ratio 0.9 L Urine Osmolality Ur Random Creatinine Ur Random Sodium CSF Oligoclonal Bands CSF HIV-1 DNA (PCR) Random Vancomycin West Nile RNA (RT-PCR) 12/07/17 12/07/17 12/07/17 11:19 11:19 11:19 WBC RBC Hgb Hct MCV MCH MCHC RDW Plt Count MPV Neut % (Auto) Lymph % (Auto) Tate % (Auto) Eos % (Auto) Baso % (Auto) Neut # (Auto) Lymph # (Auto) Tate # (Auto) Eos # (Auto) Baso # (Auto) Neutrophils % (Manual) Lymphocytes % (Manual) Monocytes % (Manual) Myelocytes % Platelet Estimate Hypochromasia (manual) Poikilocytosis (manual Anisocytosis (manual) Target Cells [place] Cells Puncture Site pCO2 pO2 HCO3 ABG pH ABG Total CO2 ABG O2 Saturation ABG Base Excess ABG Hemoglobin ABG Carboxyhemoglobin POC ABG HHb (Measured) ABG Methemoglobin Parviz Test A-a O2 Difference Respiratory Index Hgb O2 Saturation Vent Mode Mechanical Rate FiO2 Tidal Volume PEEP Sodium Potassium Chloride Carbon Dioxide Anion Gap BUN Creatinine Est GFR ( Amer) Est GFR (Non-Af Amer) POC Glucose (mg/dL) Random Glucose Calcium Total Bilirubin AST ALT Alkaline Phosphatase Total Creatine Kinase < 20 L Total Protein Albumin Globulin Albumin/Globulin Ratio Urine Osmolality 398 Ur Random Creatinine 26.8 Ur Random Sodium 45 CSF Oligoclonal Bands CSF HIV-1 DNA (PCR) Random Vancomycin 14.89 [place] RNA (RT-PCR) 12/07/17 12/07/17 11:47 17:52 WBC RBC Hgb Hct MCV MCH MCHC RDW Plt Count MPV Neut % (Auto) Lymph % (Auto) Tate % (Auto) Eos % (Auto) Baso % (Auto) Neut # (Auto) Lymph # (Auto) Tate # (Auto) Eos # (Auto) Baso # (Auto) Neutrophils % (Manual) Lymphocytes % (Manual) Monocytes % (Manual) Myelocytes % Platelet Estimate Hypochromasia (manual) Poikilocytosis (manual Anisocytosis (manual) Target Cells [place] Cells Puncture Site pCO2 pO2 HCO3 ABG pH ABG Total CO2 ABG O2 Saturation ABG Base Excess ABG Hemoglobin ABG Carboxyhemoglobin POC ABG HHb (Measured) ABG Methemoglobin Parviz Test A-a O2 Difference Respiratory Index Hgb O2 Saturation Vent Mode Mechanical Rate FiO2 Tidal Volume PEEP Sodium Potassium Chloride Carbon Dioxide Anion Gap BUN Creatinine Est GFR ( Amer) Est GFR (Non-Af Amer) POC Glucose (mg/dL) 156 H 241 H Random Glucose Calcium Total Bilirubin AST ALT Alkaline Phosphatase Total Creatine Kinase Total Protein Albumin Globulin Albumin/Globulin Ratio Urine Osmolality Ur Random Creatinine Ur Random Sodium CSF Oligoclonal Bands CSF HIV-1 DNA (PCR) Random Vancomycin West Nile RNA (RT-PCR) Attending/Attestation - Attestation I have personally seen and examined this patient.: Yes I have fully participated in the care of the patient.: Yes I have reviewed all pertinent clinical information: Yes Notes (Text): 12/07/17 18:36 Today: November The Patient was seen and examined at the bedside, Medical records reviewed, and management issues were discussed and formulated with the house staff. I have reviewed all the relevant clinical, laboratory, hemodynamic, radiographic data and medications Events reviewed Pain issues, skin care, head of the bed elevation, glycemic control were addressed. Agree with above resident's assessment and treatment plans of care as transcribed in Dr. Rockwell note.
--- NOTE | 2017-12-07 17:48 | CP.PCM.PN ---
Subjective - Date & Time of Evaluation Date of Evaluation: 12/07/17 Time of Evaluation: 17:48 Objective - Vital Signs/Intake and Output Vital Signs (last 24 hours): Temp Pulse Resp BP Pulse Ox 99 F 127 H 19 149/63 100 12/07/17 16:00 12/07/17 17:01 12/07/17 17:01 12/07/17 17:01 12/07/17 17:01 Intake and Output: 12/07/17 12/07/17 06:59 18:59 Intake Total 860 600 Output Total 940 1100 Balance -80 -500 - Medications Medications: Current Medications Acetaminophen (Tylenol 650mg/20.3ml Solution Ud) 650 mg PO Q6 PRN PRN Reason: fever Last Admin: 12/04/17 15:26 Dose: 650 mg Aspirin (Aspirin Chewable) 81 mg PO DAILY [facility] Last Admin: 12/07/17 10:50 Dose: 81 mg Bisacodyl (Dulcolax) 10 mg MT Q24H PRN PRN Reason: Constipation Diltiazem HCl (Cardizem) 60 mg PO Q6 [facility] Last Admin: 12/07/17 17:35 Dose: 60 mg Famotidine (Pepcid) 20 mg IVP DAILY [facility] Last Admin: 12/07/17 13:04 Dose: Not Given Doxycycline Hyclate 100 mg/ (Sodium Chloride) 100 mls @ 100 mls/hr IVPB Q12H [facility] Last Admin: 12/07/17 12:20 Dose: 100 mls/hr Linezolid (Zyvox 600mg/300ml D5w) 600 mg in 300 mls @ 200 mls/hr IVPB Q12 [facility] Last Admin: 12/07/17 12:20 Dose: 200 mls/hr Aztreonam 1 gm/ Sodium (Chloride) 100 mls @ 100 mls/hr IVPB Q12H [facility] Last Admin: 12/07/17 12:20 Dose: 100 mls/hr Insulin Aspart (Novolog) 0 unit SC Q6 ANA PRN Reason: Protocol Last Admin: 12/07/17 12:16 Dose: Not Given Latanoprost (Xalatan Opht) 0 ml OD HS [facility] Last Admin: 12/06/17 21:31 Dose: 2.5 ml Metoprolol Tartrate (Lopressor) 5 mg IVP Q6 [facility] Last Admin: 12/07/17 17:36 Dose: 5 mg Sodium Bicarbonate (Sodium Bicarbonate Tab) 650 mg PO BID [facility] Last Admin: 12/07/17 17:35 Dose: 650 mg Sucralfate (Carafate Oral Susp) 1 gm PO TID [facility] Last Admin: 12/07/17 17:35 Dose: 1 gm - Labs Labs: 12/07/17 11:19 12/07/17 06:17 PT 12.9 SECONDS (9.7-12.2) H 12/01/17 13:39 INR 1.15 (0.92-1.08) H 12/01/17 13:39 APTT 73 SECONDS (21-34) H D 12/04/17 06:38
--- NOTE | 2017-12-07 18:18 | CP.PCM.PN ---
Subjective - Date & Time of Evaluation Date of Evaluation: 12/07/17 Time of Evaluation: 08:00 - Subjective Subjective: IV orders renewed will repeat blood c/s Objective - Vital Signs/Intake and Output Vital Signs (last 24 hours): Temp Pulse Resp BP Pulse Ox 99 F 127 H 19 149/63 100 12/07/17 16:00 12/07/17 17:01 12/07/17 17:01 12/07/17 17:01 12/07/17 17:01 Intake and Output: 12/07/17 12/07/17 06:59 18:59 Intake Total 860 600 Output Total 940 1100 Balance -80 -500 - Medications Medications: Current Medications Acetaminophen (Tylenol 650mg/20.3ml Solution Ud) 650 mg PO Q6 PRN PRN Reason: fever Last Admin: 12/04/17 15:26 Dose: 650 mg Aspirin (Aspirin Chewable) 81 mg PO DAILY [facility] Last Admin: 12/07/17 10:50 Dose: 81 mg Bisacodyl (Dulcolax) [address] Q24H PRN PRN Reason: Constipation Diltiazem HCl (Cardizem) 60 mg PO Q6 [facility] Last Admin: 12/07/17 17:35 Dose: 60 mg Famotidine (Pepcid) 20 mg IVP DAILY [facility] Last Admin: 12/07/17 13:04 Dose: Not Given Doxycycline Hyclate 100 mg/ (Sodium Chloride) 100 mls @ 100 mls/hr IVPB Q12H [facility] Last Admin: 12/07/17 12:20 Dose: 100 mls/hr Linezolid (Zyvox 600mg/300ml D5w) 600 mg in 300 mls @ 200 mls/hr IVPB Q12 [facility] Last Admin: 12/07/17 12:20 Dose: 200 mls/hr Aztreonam 1 gm/ Sodium (Chloride) 100 mls @ 100 mls/hr IVPB Q12H [facility] Last Admin: 12/07/17 12:20 Dose: 100 mls/hr Insulin Aspart (Novolog) 0 unit SC Q6 ANA PRN Reason: Protocol Last Admin: 12/07/17 12:16 Dose: Not Given Latanoprost (Xalatan Opht) 0 ml OD HS [facility] Last Admin: 12/06/17 21:31 Dose: 2.5 ml Metoprolol Tartrate (Lopressor) 5 mg IVP Q6 [facility] Last Admin: 12/07/17 17:36 Dose: 5 mg Sodium Bicarbonate (Sodium Bicarbonate Tab) 650 mg PO BID [facility] Last Admin: 12/07/17 17:35 Dose: 650 mg Sucralfate (Carafate Oral Susp) 1 gm PO TID [facility] Last Admin: 12/07/17 17:35 Dose: 1 gm - Labs Labs: 12/07/17 11:19 12/07/17 06:17 PT 12.9 SECONDS (9.7-12.2) H 12/01/17 13:39 INR 1.15 (0.92-1.08) H 12/01/17 13:39 APTT 73 SECONDS (21-34) H D 12/04/17 06:38 - Constitutional Appears: Cachectic - Head Exam Head Exam: NORMOCEPHALIC - Eye Exam Eye Exam: absent: Scleral icterus - ENT Exam ENT Exam: Mucous Membranes Dry - Neck Exam Neck Exam: absent: Lymphadenopathy - Respiratory Exam Respiratory Exam: Decreased Breath Sounds - Cardiovascular Exam Cardiovascular Exam: REGULAR RHYTHM - GI/Abdominal Exam GI & Abdominal Exam: Distended Assessment and Plan (1) Respiratory failure Status: Acute (2) Pneumonia Status: Acute (3) Bandemia Status: Acute (4) Fever Status: Acute (5) Lethargy Status: Acute (6) Sepsis Status: Acute (7) Respiratory failure Status: Acute (8) Pneumonia Status: Acute
[2017-12-07] MEDS: Acetaminophen 650mg/20.3ml solution UD PO PRN (21:00)
[2017-12-07] MEDS: Latanoprost 2.5 ml Opht Soln OD SCH (22:50)
[2017-12-08] MEDS: (Novolog) Insulin Aspart, Recombinant 100 u/ml 10 ml vial SC SCH ×4 (00:13→17:54)
[2017-12-08] MEDS: Aztreonam 1 GM in Sodium Chloride 0.9% 100 ML IVPB SCH ×2 (01:00→12:00)
[2017-12-08 05:27] LABS: ABG ALLEN TEST POS; ARTERIAL BLOOD GAS HCO3 25.3 mmol/L (21-28); ARTERIAL BLOOD GAS HEMOGLOBIN 7.7 g/dL (11.7-17.4); ARTERIAL BLOOD GAS O2 SAT 99.3 % (95-98); ARTERIAL BLOOD GAS PCO2 34 mm/Hg (35-45); ARTERIAL BLOOD GAS PH 7.46 (7.35-7.45); ARTERIAL BLOOD GAS PO2 137 mm/Hg (80-100); ARTERIAL BLOOD GAS TCO2 25.2 mmol/L (22-28)
[2017-12-08] MEDS: Metoprolol 1 mg/ml Inj IVP SCH ×2 (06:21→11:01)
--- NOTE | 2017-12-08 06:28 | CP.PCM.PN ---
Subjective - Date & Time of Evaluation Date of Evaluation: 12/08/17 Time of Evaluation: 06:22 - Subjective Subjective: Mr. Yoon was seen and examined at the bedside in ICU. He opens his eyes spontaneously, but unable to follow simple commands. He remains on mechanical ventilator. He is able to move left arm with tactile stimuli and minimal movement of the right upper extremity. His bilateral lower extremities. All his extremities are swollen with right arm weeping with fluids. His BUN -100 and creatinine- 2.7. He remains on contact isolation for MRSA. There was no untoward events overnight. Objective - Vital Signs/Intake and Output Vital Signs (last 24 hours): Temp Pulse Resp BP Pulse Ox 98.7 F 112 H 15 155/75 H 100 12/08/17 00:00 12/08/17 01:01 12/08/17 01:01 12/08/17 01:01 12/08/17 01:01 Intake and Output: 12/07/17 12/08/17 18:59 06:59 Intake Total 610 565 Output Total 1200 550 Balance -590 15 - Medications Medications: Current Medications Acetaminophen (Tylenol 650mg/20.3ml Solution Ud) 650 mg PO Q6 PRN PRN Reason: fever Last Admin: 12/07/17 21:00 Dose: 650 mg Aspirin (Aspirin Chewable) 81 mg PO DAILY [facility] Last Admin: 12/07/17 10:50 Dose: 81 mg Bisacodyl (Dulcolax) 10 mg [place] Q24H PRN PRN Reason: Constipation Diltiazem HCl (Cardizem) 60 mg PO Q6 [facility] Last Admin: 12/08/17 06:19 Dose: 60 mg Famotidine (Pepcid) 20 mg IVP DAILY [facility] Last Admin: 12/07/17 13:04 Dose: Not Given Heparin Sodium (Porcine) (Heparin) 5,000 units SC Q8 [facility] Last Admin: 12/08/17 06:21 Dose: 5,000 units Doxycycline Hyclate 100 mg/ (Sodium Chloride) 100 mls @ 100 mls/hr IVPB Q12H [facility] Last Admin: 12/07/17 23:00 Dose: 100 mls/hr Linezolid (Zyvox 600mg/300ml D5w) 600 mg in 300 mls @ 200 mls/hr IVPB Q12 [facility] Last Admin: 12/07/17 21:00 Dose: 200 mls/hr Aztreonam 1 gm/ Sodium (Chloride) 100 mls @ 100 mls/hr IVPB Q12H [facility] Last Admin: 12/08/17 01:00 Dose: 100 mls/hr Insulin Aspart (Novolog) 0 unit SC Q6 [facility] PRN Reason: Protocol Last Admin: 12/08/17 00:13 Dose: Not Given Latanoprost (Xalatan Opht) 0 ml OD HS [facility] Last Admin: 12/07/17 22:50 Dose: 2.5 ml Metoprolol Tartrate (Lopressor) 5 mg IVP Q6 [facility] Last Admin: 12/08/17 06:21 Dose: 5 mg Sodium Bicarbonate (Sodium Bicarbonate Tab) 650 mg PO BID [facility] Last Admin: 12/07/17 17:35 Dose: 650 mg Sucralfate (Carafate Oral Susp) 1 gm PO TID [facility] Last Admin: 12/07/17 17:35 Dose: 1 gm - Labs Labs: 12/07/17 11:19 12/07/17 06:17 PT 12.9 SECONDS (9.7-12.2) H 12/01/17 13:39 INR 1.15 (0.92-1.08) H 12/01/17 13:39 APTT 73 SECONDS (21-34) H D 12/04/17 06:38 - Constitutional Appears: No Acute Distress - Head Exam Head Exam: NORMAL INSPECTION - Neurological Exam Neurological Exam: Awake Neuro motor strength exam: Left Upper Extremity: 2/1, Right Upper Extremity: 0, Left Lower Extremity: 0, Right Lower Extremity: 0 Additional comments: He is unable to move right upper extremity, but opens his eyes spontaneously. Assessment and Plan (1) Sepsis Assessment & Plan: Case discussed with Dr. Mosher, continue all current medical regimen. Recommend to treat any underlying infection and electrolyte abnormalities. Status: Acute
[2017-12-08 06:38] LABS: BASO % 0.1 % (0.0-2.0); HEMOGLOBIN 7.2 g/dL (12.0-18.0); LYMPH # 0.8 K/uL (1.0-4.3); LYMPH % 4.7 % (20.0-40.0); MEAN CELL VOLUME 80.7 fL (80.0-94.0); MEAN CORPUSCULAR HEMOGLOBIN 26.1 pg (27.0-31.0); MEAN CORPUSCULAR HGB CONC 32.3 g/dL (33.0-37.0); MEAN PLATELET VOLUME 10.9 fL (7.2-11.7); MONO # 0.7 K/uL (0.0-0.8); MONO % 4.7 % (0.0-10.0); NEUT # 14.4 K/uL (1.8-7.0); NEUT % 90.5 % (50.0-75.0); NRBC % 0.1 % (0.0-2.0); PLATELET COUNT 210 K/uL (130-400); RBC 2.76 Mil/uL (4.40-5.90); RED CELL DISTRIBUTION WIDTH 16.5 % (11.5-14.5); WHITE BLOOD COUNT 15.9 K/uL (4.8-10.8)
[2017-12-08 06:50] LABS: ALB/GLOB RATIO 0.9 (1.0-2.1); ALBUMIN 2.1 g/dL (3.5-5.0); CALCIUM 7.3 mg/dl (8.6-10.4); MAGNESIUM 1.8 mg/dL (1.6-2.3)
[2017-12-08 08:50] LABS: BANDS 1 % (0-2); LYMPHOCYTE 2 % (20-40); MONOCYTE 3 % (0-10); MYELOCYTE 1 % (0-0); NEUTROPHIL 93 % (50-75); TOTAL CELLS COUNTED 100
[2017-12-08 08:51] LABS: ANISOCYTOSIS SLIGHT; HYPOCHROMIC SLIGHT; LARGE PLATELETS PRESENT; OVALOCYTES SLIGHT; PLATELET ESTIMATE NORMAL (NORMAL); POIKILOCYTOSIS SLIGHT
--- NOTE | 2017-12-08 09:02 | RAD ---
PROCEDURE: CHEST RADIOGRAPH, 1 VIEW HISTORY: ICU Routine/Intubated COMPARISON: 12/07/2017 FINDINGS: LUNGS: Clear. PLEURA: Bilateral small to moderate pleural effusion, grossly unchanged. No pneumothorax. CARDIOVASCULAR: Normal heart size. ET tube and right IJ central venous multi lumen catheter are unchanged in position. OSSEOUS STRUCTURES: No significant abnormalities. VISUALIZED UPPER ABDOMEN: Normal. OTHER FINDINGS: None. IMPRESSION: Stable bilateral small moderate pleural effusion.
[2017-12-08] MEDS: Sucralfate 1 gm/10 ml Oral Susp UD PO SCH ×3 (09:55→17:48)
[2017-12-08] MEDS: Linezolid 600 mg in D5W 300 ml 600 MG/300 ML BAG IVPB SCH ×2 (09:55→21:00)
[2017-12-08] MEDS ORDERED: Potassium Chloride 20 mEq/15 ml LIQ UD PEG ONE (10:30)
[2017-12-08 10:59] LABS: HEMOGLOBIN 7.1 g/dL (12.0-18.0); MEAN CORPUSCULAR HEMOGLOBIN 26.3 pg (27.0-31.0); MEAN CORPUSCULAR HGB CONC 32.5 g/dL (33.0-37.0); MEAN PLATELET VOLUME 10.6 fL (7.2-11.7); RBC 2.7 Mil/uL (4.40-5.90); RED CELL DISTRIBUTION WIDTH 16.2 % (11.5-14.5); WHITE BLOOD COUNT 18.7 K/uL (4.8-10.8)
--- NOTE | 2017-12-08 11:22 | CP.PCM.CON ---
History of Present Illness - History of Present Illness History of Present Illness: Vascular Surgery: Dr Lo Re: request for trach and IVC filter Pt is an 87M w/ PMH of hydrocephalus, htn, dementia and chronic afib who was admitted on 12/01 for AMS and acute respiratory failure. Pt was subsequently admitted to ICU and intubated for airway protection. As per EMR, work-up over the following days demonstrated likely pneumonia secondary to aspiration as well as MRSA bacteremia. Pt is being seen by multiple specialities including pulm, ID, and cardiology. 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 Was started on heparin drip however HgB this morning dropped from 8.9 to 7.1, so request was made for IVC filter. Considering pt has failed CPAP trials request was made for tracheostomy as well. Currently pt remains intubated. Arousable and opens eyes spontaneously. Does not follow commands. is bedside. states "I do not believe in giving up and will do everything that can be done, but I want to do minimal procedures as possible". Explained to risk/benefits of proceeding with IVC filter and trach vs not. Further conversation after discusses with popcorn vendor at her request. Review of Systems - Review of Systems Systems not reviewed;Unavailable: Acuity of Condition, Intubated Past Patient History - Past Medical History & Family History Past Medical History?: Yes - Past Social History Smoking Status: Never Smoked - CARDIAC Hx Atrial Fibrillation: Yes Hx Hypertension: Yes - PULMONARY Hx Respiratory Disorders: No - NEUROLOGICAL Hx Dementia: Yes - HEENT Hx HEENT Problems: Yes Hx Cataracts: Yes - RENAL Hx Chronic Kidney Disease: No - ENDOCRINE/METABOLIC Hx Endocrine Disorders: Yes Hx Diabetes Mellitus Type 2: Yes - HEMATOLOGICAL/ONCOLOGICAL Hx Blood Disorders: No - INTEGUMENTARY Hx Dermatological Problems: No - MUSCULOSKELETAL/RHEUMATOLOGICAL Hx Musculoskeletal Disorders: Yes Hx Falls: Yes - GASTROINTESTINAL Hx Gastrointestinal Disorders: Yes Other/Comment: dysphagia - GENITOURINARY/GYNECOLOGICAL Hx Genitourinary Disorders: No - PSYCHIATRIC Hx Substance Use: No - SURGICAL HISTORY Hx Surgeries: Yes Other/Comment: 'SHUNT' - ANESTHESIA Hx Anesthesia Reactions: No Meds Allergies/Adverse Reactions: Allergies Allergy/AdvReac Type Severity Reaction Status Date / Time lisinopril Allergy Verified 12/01/17 10:28 Penicillins Allergy Verified 12/01/17 10:20 TOMATO Allergy Uncoded 01/26/17 12:02 - Medications Medications: Current Medications Acetaminophen (Tylenol 650mg/20.3ml Solution Ud) 650 mg PO Q6 PRN PRN Reason: fever Last Admin: 12/07/17 21:00 Dose: 650 mg Aspirin (Aspirin Chewable) 81 mg PO DAILY [facility] Last Admin: 12/08/17 09:55 Dose: 81 mg Bisacodyl (Dulcolax) 10 mg [place] Q24H PRN PRN Reason: Constipation Diltiazem HCl (Cardizem) 60 mg PO Q6 [facility] Last Admin: 12/08/17 06:19 Dose: 60 mg Famotidine (Pepcid) 20 mg IVP DAILY [facility] Last Admin: 12/08/17 09:55 Dose: 20 mg Heparin Sodium (Porcine) (Heparin) 5,000 units SC Q8 [facility] Last Admin: 12/08/17 06:21 Dose: 5,000 units Doxycycline Hyclate 100 mg/ (Sodium Chloride) 100 mls @ 100 mls/hr IVPB Q12H [facility] Last Admin: 12/07/17 23:00 Dose: 100 mls/hr Linezolid (Zyvox 600mg/300ml D5w) 600 mg in 300 mls @ 200 mls/hr IVPB Q12 [facility] Last Admin: 12/08/17 09:55 Dose: 200 mls/hr Aztreonam 1 gm/ Sodium (Chloride) 100 mls @ 100 mls/hr IVPB Q12H [facility] Last Admin: 12/08/17 01:00 Dose: 100 mls/hr Insulin Aspart (Novolog) 0 unit SC Q6 [facility] PRN Reason: Protocol Last Admin: 12/08/17 06:32 Dose: 8 unit Latanoprost (Xalatan Opht) 0 ml OD HS [facility] Last Admin: 12/07/17 22:50 Dose: 2.5 ml Metoprolol Tartrate (Lopressor) 5 mg IVP Q6 [facility] Last Admin: 12/08/17 11:01 Dose: 5 mg Sodium Bicarbonate (Sodium Bicarbonate Tab) 650 mg PO BID [facility] Last Admin: 12/08/17 09:54 Dose: 650 mg Sucralfate (Carafate Oral Susp) 1 gm PO TID [facility] Last Admin: 12/08/17 09:55 Dose: 1 gm Physical Exam - Constitutional Appears: Chronically Ill - Eye Exam Eye Exam: PERRL - ENT Exam ENT Exam: Mucous Membranes Dry - Respiratory Exam Respiratory Exam: Decreased Breath Sounds Additional comments: ventilated - Cardiovascular Exam Cardiovascular Exam: Tachycardia, +S1, +S2 - GI/Abdominal Exam GI & Abdominal Exam: absent: Distended - Extremities Exam Extremities exam: Positive for: pedal edema - Skin Skin Exam: Normal Color Results - Vital Signs Recent Vital Signs: Last Vital Signs Temp 99.7 F H 12/08/17 08:00 Pulse 98 H 12/08/17 08:01 Resp 34 H 12/08/17 08:01 BP 116/66 12/08/17 08:01 Pulse Ox 99 12/08/17 08:01 - Labs Result Diagrams: 12/08/17 10:55 12/08/17 06:30 Labs: Laboratory Results - last 24 hr 12/02/17 12/02/17 12/07/17 15:14 15:32 11:19 WBC 12.0 H RBC 3.43 L Hgb 8.9 L Hct 27.5 L MCV 80.2 MCH 26.1 L MCHC 32.6 L RDW 16.4 H Plt Count 195 MPV 10.6 Neut % (Auto) 92.8 H Lymph % (Auto) 3.6 L [place] % (Auto) 3.5 Eos % (Auto) 0.0 Baso % (Auto) 0.1 Neut # (Auto) 11.1 H Lymph # (Auto) 0.4 L [place] # (Auto) 0.4 Eos # (Auto) 0.0 Baso # (Auto) 0.0 Neutrophils % (Manual) 94 H Band Neutrophils % Lymphocytes % (Manual) 3 L Monocytes % (Manual) 2 Myelocytes % 1 H Platelet Estimate Normal Large Platelets Hypochromasia (manual) Slight Poikilocytosis (manual Slight Basophilic Stippling Anisocytosis (manual) Slight Ovalocytes Puncture Site pCO2 pO2 HCO3 ABG pH ABG Total CO2 ABG O2 Saturation ABG Base Excess ABG Hemoglobin ABG Carboxyhemoglobin POC ABG HHb (Measured) ABG Methemoglobin Parviz Test A-a O2 Difference Respiratory Index Hgb O2 Saturation Vent Mode Mechanical Rate FiO2 Tidal Volume PEEP Sodium Potassium Chloride Carbon Dioxide Anion Gap BUN Creatinine Est GFR ( Amer) Est GFR (Non-Af Amer) POC Glucose (mg/dL) Random Glucose Calcium Phosphorus Magnesium Total Bilirubin AST ALT Alkaline Phosphatase Total Creatine Kinase Total Protein Albumin Globulin Albumin/Globulin Ratio Urine Osmolality Ur Random Creatinine Ur Random Sodium CSF Oligoclonal Bands TNP Random Vancomycin [place] RNA (RT-PCR) TNP 12/07/17 12/07/17 12/07/17 11:19 11:19 11:19 WBC RBC Hgb Hct MCV MCH MCHC RDW Plt Count MPV Neut % (Auto) Lymph % (Auto) [place] % (Auto) Eos % (Auto) Baso % (Auto) Neut # (Auto) Lymph # (Auto) [place] # (Auto) Eos # (Auto) Baso # (Auto) Neutrophils % (Manual) Band Neutrophils % Lymphocytes % (Manual) Monocytes % (Manual) Myelocytes % Platelet Estimate Large Platelets Hypochromasia (manual) Poikilocytosis (manual Basophilic Stippling Anisocytosis (manual) Ovalocytes Puncture Site pCO2 pO2 HCO3 ABG pH ABG Total CO2 ABG O2 Saturation ABG Base Excess ABG Hemoglobin ABG Carboxyhemoglobin POC ABG HHb (Measured) ABG Methemoglobin Parviz Test A-a O2 Difference Respiratory Index Hgb O2 Saturation Vent Mode Mechanical Rate FiO2 Tidal Volume PEEP Sodium Potassium Chloride Carbon Dioxide Anion Gap BUN Creatinine Est GFR ( Amer) Est GFR (Non-Af Amer) POC Glucose (mg/dL) Random Glucose Calcium Phosphorus Magnesium Total Bilirubin AST ALT Alkaline Phosphatase Total Creatine Kinase < 20 L Total Protein Albumin Globulin Albumin/Globulin Ratio Urine Osmolality 398 Ur Random Creatinine 26.8 Ur Random Sodium 45 CSF Oligoclonal Bands Random Vancomycin 14.89 [place] RNA (RT-PCR) 12/07/17 12/07/17 12/08/17 11:47 17:52 00:10 WBC RBC Hgb Hct MCV MCH MCHC RDW Plt Count MPV Neut % (Auto) Lymph % (Auto) [place] % (Auto) Eos % (Auto) Baso % (Auto) Neut # (Auto) Lymph # (Auto) [place] # (Auto) Eos # (Auto) Baso # (Auto) Neutrophils % (Manual) Band Neutrophils % Lymphocytes % (Manual) Monocytes % (Manual) Myelocytes % Platelet Estimate Large Platelets Hypochromasia (manual) Poikilocytosis (manual Basophilic Stippling Anisocytosis (manual) Ovalocytes Puncture Site pCO2 pO2 HCO3 ABG pH ABG Total CO2 ABG O2 Saturation ABG Base Excess ABG Hemoglobin ABG Carboxyhemoglobin POC ABG HHb (Measured) ABG Methemoglobin Parviz Test A-a O2 Difference Respiratory Index Hgb O2 Saturation Vent Mode Mechanical Rate FiO2 Tidal Volume PEEP Sodium Potassium Chloride Carbon Dioxide Anion Gap BUN Creatinine Est GFR ( Amer) Est GFR (Non-Af Amer) POC Glucose (mg/dL) 156 H 241 H 220 H Random Glucose Calcium Phosphorus Magnesium Total Bilirubin AST ALT Alkaline Phosphatase Total Creatine Kinase Total Protein Albumin Globulin Albumin/Globulin Ratio Urine Osmolality Ur Random Creatinine Ur Random Sodium CSF Oligoclonal Bands Random Vancomycin [place] RNA (RT-PCR) 12/08/17 12/08/17 12/08/17 05:14 06:25 06:30 WBC RBC Hgb Hct MCV MCH MCHC RDW Plt Count MPV Neut % (Auto) Lymph % (Auto) [place] % (Auto) Eos % (Auto) Baso % (Auto) Neut # (Auto) Lymph # (Auto) [place] # (Auto) Eos # (Auto) Baso # (Auto) Neutrophils % (Manual) Band Neutrophils % Lymphocytes % (Manual) Monocytes % (Manual) Myelocytes % Platelet Estimate Large Platelets Hypochromasia (manual) Poikilocytosis (manual Basophilic Stippling Anisocytosis (manual) Ovalocytes Puncture Site Lr pCO2 34 L pO2 137 H HCO3 25.3 ABG pH 7.46 H ABG Total CO2 25.2 ABG O2 Saturation 99.3 H ABG Base Excess 0.5 ABG Hemoglobin 7.7 L ABG Carboxyhemoglobin 1.2 POC ABG HHb (Measured) 0.7 ABG Methemoglobin 1.3 Parviz Test Pos A-a O2 Difference 177.0 Respiratory Index 1.3 Hgb O2 Saturation 96.9 Vent Mode Prvc Mechanical Rate 16 FiO2 50.0 Tidal Volume 450 PEEP 5 Sodium 145 Potassium 2.9 L Chloride 110 H Carbon Dioxide 23 Anion Gap 15 BUN 97 H Creatinine 2.5 H Est GFR ( Amer) 30 Est GFR (Non-Af Amer) 24 POC Glucose (mg/dL) 305 H Random Glucose 242 H Calcium 7.3 L Phosphorus 4.5 Magnesium 1.8 Total Bilirubin 0.6 AST 21 ALT 50 Alkaline Phosphatase 65 Total Creatine Kinase Total Protein 4.3 L Albumin 2.1 L Globulin 2.2 Albumin/Globulin Ratio 0.9 L Urine Osmolality Ur Random Creatinine Ur Random Sodium CSF Oligoclonal Bands Random Vancomycin [place] RNA (RT-PCR) 12/08/17 12/08/17 06:32 10:55 WBC 15.9 H 18.7 H RBC 2.76 L 2.70 L Hgb 7.2 L 7.1 L Hct 22.3 L 21.8 L MCV 80.7 81.0 MCH 26.1 L 26.3 L MCHC 32.3 L 32.5 L RDW 16.5 H 16.2 H Plt Count 210 219 MPV 10.9 10.6 Neut % (Auto) 90.5 H Lymph % (Auto) 4.7 L [place] % (Auto) 4.7 Eos % (Auto) 0.0 Baso % (Auto) 0.1 Neut # (Auto) 14.4 H Lymph # (Auto) 0.8 L [place] # (Auto) 0.7 Eos # (Auto) 0.0 Baso # (Auto) 0.0 Neutrophils % (Manual) 93 H Band Neutrophils % 1 Lymphocytes % (Manual) 2 L Monocytes % (Manual) 3 Myelocytes % 1 H Platelet Estimate Normal Large Platelets Present Hypochromasia (manual) Slight Poikilocytosis (manual Slight Basophilic Stippling Slight Anisocytosis (manual) Slight Ovalocytes Slight Puncture Site pCO2 pO2 HCO3 ABG pH ABG Total CO2 ABG O2 Saturation ABG Base Excess ABG Hemoglobin ABG Carboxyhemoglobin POC ABG HHb (Measured) ABG Methemoglobin Parviz Test A-a O2 Difference Respiratory Index Hgb O2 Saturation Vent Mode Mechanical Rate FiO2 Tidal Volume PEEP Sodium Potassium Chloride Carbon Dioxide Anion Gap BUN Creatinine Est GFR ( Amer) Est GFR (Non-Af Amer) POC Glucose (mg/dL) Random Glucose Calcium Phosphorus Magnesium Total Bilirubin AST ALT Alkaline Phosphatase Total Creatine Kinase Total Protein Albumin Globulin Albumin/Globulin Ratio Urine Osmolality Ur Random Creatinine Ur Random Sodium CSF Oligoclonal Bands Random Vancomycin [place] RNA (RT-PCR) Assessment & Plan - Assessment and Plan (Free Text) Assessment: 87M intubated 2/2 aspiration pneumonia, possible PNA, bacteremia, SIMON, b/l DVTs , chronic afib Plan: trach and IVC filter planned for tomorrow, 12/09/17 hold tube feeds @ [facility] hold anticoagulation d/w Dr Wally Allen, PGY3 - Date & Time Date: 12/08/17 Time: 15:51
--- NOTE | 2017-12-08 11:37 | CP.PCM.PN ---
Subjective - Date & Time of Evaluation Date of Evaluation: 12/08/17 Time of Evaluation: 11:35 - Subjective Subjective: Events reviewed. Critically ill. Objective - Vital Signs/Intake and Output Vital Signs (last 24 hours): Temp Pulse Resp BP Pulse Ox 99.7 F H 98 H 34 H 116/66 99 12/08/17 08:00 12/08/17 08:01 12/08/17 08:01 12/08/17 08:01 12/08/17 08:01 Intake and Output: 12/08/17 12/08/17 06:59 18:59 Intake Total 670 20 Output Total 898 58 Balance -228 -38 - Medications Medications: Current Medications Acetaminophen (Tylenol 650mg/20.3ml Solution Ud) 650 mg PO Q6 PRN PRN Reason: fever Last Admin: 12/07/17 21:00 Dose: 650 mg Aspirin (Aspirin Chewable) 81 mg PO DAILY [facility] Last Admin: 12/08/17 09:55 Dose: 81 mg Bisacodyl (Dulcolax) 10 mg [place] Q24H PRN PRN Reason: Constipation Diltiazem HCl (Cardizem) 60 mg PO Q6 [facility] Last Admin: 12/08/17 06:19 Dose: 60 mg Famotidine (Pepcid) 20 mg IVP DAILY [facility] Last Admin: 12/08/17 09:55 Dose: 20 mg Heparin Sodium (Porcine) (Heparin) 5,000 units SC Q8 [facility] Last Admin: 12/08/17 06:21 Dose: 5,000 units Doxycycline Hyclate 100 mg/ (Sodium Chloride) 100 mls @ 100 mls/hr IVPB Q12H [facility] Last Admin: 12/07/17 23:00 Dose: 100 mls/hr Linezolid (Zyvox 600mg/300ml D5w) 600 mg in 300 mls @ 200 mls/hr IVPB Q12 [facility] Last Admin: 12/08/17 09:55 Dose: 200 mls/hr Aztreonam 1 gm/ Sodium (Chloride) 100 mls @ 100 mls/hr IVPB Q12H [facility] Last Admin: 12/08/17 01:00 Dose: 100 mls/hr Insulin Aspart (Novolog) 0 unit SC Q6 [facility] PRN Reason: Protocol Last Admin: 12/08/17 06:32 Dose: 8 unit Latanoprost (Xalatan Opht) 0 ml OD HS [facility] Last Admin: 12/07/17 22:50 Dose: 2.5 ml Metoprolol Tartrate (Lopressor) 5 mg IVP Q6 [facility] Last Admin: 12/08/17 11:01 Dose: 5 mg Sodium Bicarbonate (Sodium Bicarbonate Tab) 650 mg PO BID [facility] Last Admin: 12/08/17 09:54 Dose: 650 mg Sucralfate (Carafate Oral Susp) 1 gm PO TID [facility] Last Admin: 12/08/17 09:55 Dose: 1 gm - Labs Labs: 12/08/17 10:55 12/08/17 06:30 PT 12.9 SECONDS (9.7-12.2) H 12/01/17 13:39 INR 1.15 (0.92-1.08) H 12/01/17 13:39 APTT 73 SECONDS (21-34) H D 12/04/17 06:38 Assessment and Plan - Assessment and Plan (Free Text) Assessment: 2D echo images viewed by me: Moderate LV dysfunction, technically limited study due tachycardia during the study. EF 45%%, patient appears to be in afib EKG images viewed by me: Atrial fibrillation CXR: Severe rotation, poor inspirtory effort, ETT, Right pleural effusion A/P: 87 year old man with dementia, hydrocephalus s/p [employer] shunt Respirtory failure with pleural effusions, lung injury, poor mental status Acute on chronic Diastolic CHF - EF 45-50% when hemodynamically stable Afib chronic not a candidate for anticoagulation; Rate control with diltiazem; consider change IV lopressor to po 25mg po q6h titrate this every 6 hours up as BP and HR tolerate once stable dose is established can change to BID or daily preparation
--- NOTE | 2017-12-08 11:58 | CP.CCUPN ---
<Jas Rockwell - Last Filed: 12/08/17 12:22> CCU Subjective - Physician Review Events Since Last Encounter (Free Text): 12/08/17 11:56 Per nursing no acute events occurred overnight. Subjective (Free Text): 12/06/17 11:39 Patient seen and examined at bedside this A.M. Per nursing no acute events overnight. Patient scheduled for HD 11/23/17. 12/08/17 12:08 Critical Care Time Spent (in minutes): 45 CCU Objective - Vital Signs / Intake & Output Vital Signs (Last 4 hours): Vital Signs Temp Pulse Resp BP Pulse Ox 12/08/17 08:01 98 H 34 H 116/66 99 12/08/17 08:00 99.7 F H 93 H 13 100 Intake and Output (Last 8hrs): Intake & Output 12/07/17 12/08/17 12/08/17 22:59 06:59 14:59 Intake Total 350 330 20 Output Total 770 528 58 Balance -420 -198 -38 Intake: Intake, IV Amount 300 200 Right Distal Port 300 200 Internal Jugular Tube Feeding 50 130 20 Output: Urine 770 528 58 Urethral (Morgan) 770 528 58 - Physical Exam Head: Positive for: Atraumatic, Normocephalic Pupils: Positive for: PERRL Respiratory/Chest: Positive for: Decreased Breath Sounds Cardiovascular: Positive for: Normal S1, S2, Tachycardic Abdomen: Positive for: Normal Bowel Sounds. Negative for: Peritoneal Signs Upper Extremity: Positive for: Normal Inspection Lower Extremity: Positive for: Normal Inspection Neurological: Negative for: GCS=15, CN II-XII Intact - Medications Active Medications: Active Medications Generic Name Dose Route Start Last Admin Trade Name Freq PRN Reason Stop Dose Admin Acetaminophen 650 mg 12/02/17 07:49 12/07/17 21:00 Tylenol 650mg/20.3ml Solution Ud PO 650 mg Q6 PRN Administration fever Aspirin 81 mg 12/02/17 10:00 12/08/17 09:55 Aspirin Chewable PO 81 mg DAILY PRISCILA Administration Bisacodyl 10 mg 12/03/17 11:57 Dulcolax NV Q24H PRN Constipation Diltiazem HCl 60 mg 12/05/17 12:00 12/08/17 11:53 Cardizem PO 60 mg Q6 PRISCILA Administration Famotidine 20 mg 12/07/17 12:30 12/08/17 09:55 Pepcid IVP 20 mg DAILY PRISCILA Administration Heparin Sodium (Porcine) 5,000 units 12/07/17 22:00 12/08/17 06:21 Heparin SC 5,000 units Q8 PRISCILA Administration Doxycycline Hyclate 100 mg/ 100 mls @ 100 mls/hr 12/03/17 12:30 12/07/17 23: 00 Sodium Chloride IVPB 100 mls/hr Q12H PRISCILA Administration Linezolid 600 mg in 300 mls @ 200 mls/hr 12/05/17 10:00 12/08/17 09:55 Zyvox 600mg/300ml D5w IVPB 200 mls/hr Q12 PRISCILA Administration Aztreonam 1 gm/ Sodium 100 mls @ 100 mls/hr 12/05/17 13:00 12/08/17 01:00 Chloride IVPB 100 mls/hr Q12H PRISCILA Administration Insulin Aspart 0 unit 12/06/17 12:00 12/08/17 11:49 Novolog SC 6 unit Q6 PRISCILA Administration Protocol Latanoprost 0 ml 12/01/17 23:45 12/07/17 22:50 Xalatan Opht OD 2.5 ml HS PRISCILA Administration Metoprolol Tartrate 5 mg 12/06/17 18:00 12/08/17 11:01 Lopressor IVP 5 mg Q6 PRISCILA Administration Sodium Bicarbonate 650 mg 12/06/17 18:00 12/08/17 09:54 Sodium Bicarbonate Tab PO 650 mg BID PRISCILA Administration Sucralfate 1 gm 12/03/17 18:00 12/08/17 09:55 Carafate Oral Susp PO 1 gm TID PRISCILA Administration - Patient Studies Lab Studies: Microbiology Studies 12/02/17 15:20 Gram Stain - Final Cerebral Spinal Fluid CSF Culture - Final No growth. Lab Studies 12/08/17 12/08/17 12/08/17 Range/Units 11:37 10:55 06:32 WBC 18.7 H 15.9 H (4.8-10.8) K/uL RBC 2.70 L 2.76 L (4.40-5.90) Mil/uL Hgb 7.1 L 7.2 L (12.0-18.0) g/dL Hct 21.8 L 22.3 L (35.0-51.0) % MCV 81.0 80.7 (80.0-94.0) fL MCH 26.3 L 26.1 L (27.0-31.0) pg MCHC 32.5 L 32.3 L (33.0-37.0) g/dL RDW 16.2 H 16.5 H (11.5-14.5) % Plt Count 219 210 (130-400) K/uL MPV 10.6 10.9 (7.2-11.7) fL Neut % (Auto) 90.5 H (50.0-75.0) % Lymph % (Auto) 4.7 L (20.0-40.0) % [place] % (Auto) 4.7 (0.0-10.0) % Eos % (Auto) 0.0 (0.0-4.0) % Baso % (Auto) 0.1 (0.0-2.0) % Neut # (Auto) 14.4 H (1.8-7.0) K/uL Lymph # (Auto) 0.8 L (1.0-4.3) K/uL [place] # (Auto) 0.7 (0.0-0.8) K/uL Eos # (Auto) 0.0 (0.0-0.7) K/uL Baso # (Auto) 0.0 (0.0-0.2) K/uL Neutrophils % (Manual) 93 H (50-75) % Band Neutrophils % 1 (0-2) % Lymphocytes % (Manual) 2 L (20-40) % Monocytes % (Manual) 3 (0-10) % Myelocytes % 1 H (0-0) % Platelet Estimate Normal (NORMAL) Large Platelets Present Hypochromasia (manual) Slight Poikilocytosis (manual Slight Basophilic Stippling Slight Anisocytosis (manual) Slight Ovalocytes Slight Puncture Site pCO2 (35-45) mm/Hg pO2 (80-100) mm/Hg HCO3 (21-28) mmol/L ABG pH (7.35-7.45) ABG Total CO2 (22-28) mmol/L ABG O2 Saturation (95-98) % ABG Base Excess (-2.0-3.0) mmol/L ABG Hemoglobin (11.7-17.4) g/dL ABG Carboxyhemoglobin (0.5-1.5) % POC ABG HHb (Measured) (0.0-5.0) % ABG Methemoglobin (0.0-3.0) % Parviz Test A-a O2 Difference mm/Hg Respiratory Index Hgb O2 Saturation (95.0-98.0) % Vent Mode Mechanical Rate FiO2 % Tidal Volume PEEP Sodium (132-148) mmol/L Potassium (3.6-5.2) mmol/L Chloride (98-107) mmol/L Carbon Dioxide (22-30) mmol/L Anion Gap (10-20) BUN (9-20) mg/dL Creatinine (0.8-1.5) mg/dL Est GFR ( Amer) Est GFR (Non-Af Amer) POC Glucose (mg/dL) 265 H (65-110) mg/dL Random Glucose (75-110) mg/dL Calcium (8.6-10.4) mg/dl Phosphorus (2.5-4.5) mg/dL Magnesium (1.6-2.3) mg/dL Total Bilirubin (0.2-1.3) mg/dL AST (17-59) U/L ALT (21-72) U/L Alkaline Phosphatase (38-126) U/L Total Protein (6.3-8.3) g/dL Albumin (3.5-5.0) g/dL Globulin (2.2-3.9) gm/dL Albumin/Globulin Ratio (1.0-2.1) Ur Random Creatinine mg/dL Ur Random Sodium mmol/L CSF Oligoclonal Bands Random Vancomycin ug/mL West Nile RNA (RT-PCR) 12/08/17 12/08/17 12/08/17 Range/Units 06:30 06:25 05:14 WBC (4.8-10.8) K/uL RBC (4.40-5.90) Mil/uL Hgb (12.0-18.0) g/dL Hct (35.0-51.0) % MCV (80.0-94.0) fL MCH (27.0-31.0) pg MCHC (33.0-37.0) g/dL RDW (11.5-14.5) % Plt Count (130-400) K/uL MPV (7.2-11.7) fL Neut % (Auto) (50.0-75.0) % Lymph % (Auto) (20.0-40.0) % [place] % (Auto) (0.0-10.0) % Eos % (Auto) (0.0-4.0) % Baso % (Auto) (0.0-2.0) % Neut # (Auto) (1.8-7.0) K/uL Lymph # (Auto) (1.0-4.3) K/uL [place] # (Auto) (0.0-0.8) K/uL Eos # (Auto) (0.0-0.7) K/uL Baso # (Auto) (0.0-0.2) K/uL Neutrophils % (Manual) (50-75) % Band Neutrophils % (0-2) % Lymphocytes % (Manual) (20-40) % Monocytes % (Manual) (0-10) % Myelocytes % (0-0) % Platelet Estimate (NORMAL) Large Platelets Hypochromasia (manual) Poikilocytosis (manual Basophilic Stippling Anisocytosis (manual) Ovalocytes Puncture Site Lr pCO2 34 L (35-45) mm/Hg pO2 137 H (80-100) mm/Hg HCO3 25.3 (21-28) mmol/L ABG pH 7.46 H (7.35-7.45) ABG Total CO2 25.2 (22-28) mmol/L ABG O2 Saturation 99.3 H (95-98) % ABG Base Excess 0.5 (-2.0-3.0) mmol/L ABG Hemoglobin 7.7 L (11.7-17.4) g/dL ABG Carboxyhemoglobin 1.2 (0.5-1.5) % POC ABG HHb (Measured) 0.7 (0.0-5.0) % ABG Methemoglobin 1.3 (0.0-3.0) % Parviz Test Pos A-a O2 Difference 177.0 mm/Hg Respiratory Index 1.3 Hgb O2 Saturation 96.9 (95.0-98.0) % Vent Mode Prvc Mechanical Rate 16 FiO2 50.0 % Tidal Volume 450 PEEP 5 Sodium 145 (132-148) mmol/L Potassium 2.9 L (3.6-5.2) mmol/L Chloride 110 H (98-107) mmol/L Carbon Dioxide 23 (22-30) mmol/L Anion Gap 15 (10-20) BUN 97 H (9-20) mg/dL Creatinine 2.5 H (0.8-1.5) mg/dL Est GFR ( Amer) 30 Est GFR (Non-Af Amer) 24 POC Glucose (mg/dL) 305 H (65-110) mg/dL Random Glucose 242 H (75-110) mg/dL Calcium 7.3 L (8.6-10.4) mg/dl Phosphorus 4.5 (2.5-4.5) mg/dL Magnesium 1.8 (1.6-2.3) mg/dL Total Bilirubin 0.6 (0.2-1.3) mg/dL AST 21 (17-59) U/L ALT 50 (21-72) U/L Alkaline Phosphatase 65 (38-126) U/L Total Protein 4.3 L (6.3-8.3) g/dL Albumin 2.1 L (3.5-5.0) g/dL Globulin 2.2 (2.2-3.9) gm/dL Albumin/Globulin Ratio 0.9 L (1.0-2.1) Ur Random Creatinine mg/dL Ur Random Sodium mmol/L CSF Oligoclonal Bands Random Vancomycin ug/mL West Nile RNA (RT-PCR) 12/08/17 12/07/17 12/07/17 Range/Units 00:10 17:52 11:19 WBC (4.8-10.8) K/uL RBC (4.40-5.90) Mil/uL Hgb (12.0-18.0) g/dL Hct (35.0-51.0) % MCV (80.0-94.0) fL MCH (27.0-31.0) pg MCHC (33.0-37.0) g/dL RDW (11.5-14.5) % Plt Count (130-400) K/uL MPV (7.2-11.7) fL Neut % (Auto) (50.0-75.0) % Lymph % (Auto) (20.0-40.0) % [place] % (Auto) (0.0-10.0) % Eos % (Auto) (0.0-4.0) % Baso % (Auto) (0.0-2.0) % Neut # (Auto) (1.8-7.0) K/uL Lymph # (Auto) (1.0-4.3) K/uL [place] # (Auto) (0.0-0.8) K/uL Eos # (Auto) (0.0-0.7) K/uL Baso # (Auto) (0.0-0.2) K/uL Neutrophils % (Manual) (50-75) % Band Neutrophils % (0-2) % Lymphocytes % (Manual) (20-40) % Monocytes % (Manual) (0-10) % Myelocytes % (0-0) % Platelet Estimate (NORMAL) Large Platelets Hypochromasia (manual) Poikilocytosis (manual Basophilic Stippling Anisocytosis (manual) Ovalocytes Puncture Site pCO2 (35-45) mm/Hg pO2 (80-100) mm/Hg HCO3 (21-28) mmol/L ABG pH (7.35-7.45) ABG Total CO2 (22-28) mmol/L ABG O2 Saturation (95-98) % ABG Base Excess (-2.0-3.0) mmol/L ABG Hemoglobin (11.7-17.4) g/dL ABG Carboxyhemoglobin (0.5-1.5) % POC ABG HHb (Measured) (0.0-5.0) % ABG Methemoglobin (0.0-3.0) % Parviz Test A-a O2 Difference mm/Hg Respiratory Index Hgb O2 Saturation (95.0-98.0) % Vent Mode Mechanical Rate FiO2 % Tidal Volume PEEP Sodium (132-148) mmol/L Potassium (3.6-5.2) mmol/L Chloride (98-107) mmol/L Carbon Dioxide (22-30) mmol/L Anion Gap (10-20) BUN (9-20) mg/dL Creatinine (0.8-1.5) mg/dL Est GFR ( Amer) Est GFR (Non-Af Amer) POC Glucose (mg/dL) 220 H 241 H (65-110) mg/dL Random Glucose (75-110) mg/dL Calcium (8.6-10.4) mg/dl Phosphorus (2.5-4.5) mg/dL Magnesium (1.6-2.3) mg/dL Total Bilirubin (0.2-1.3) mg/dL AST (17-59) U/L ALT (21-72) U/L Alkaline Phosphatase (38-126) U/L Total Protein (6.3-8.3) g/dL Albumin (3.5-5.0) g/dL Globulin (2.2-3.9) gm/dL Albumin/Globulin Ratio (1.0-2.1) Ur Random Creatinine mg/dL Ur Random Sodium mmol/L CSF Oligoclonal Bands Random Vancomycin 14.89 ug/mL West Nile RNA (RT-PCR) 12/07/17 12/07/17 12/02/17 Range/Units 11:19 11:19 15:32 WBC (4.8-10.8) K/uL RBC (4.40-5.90) Mil/uL Hgb (12.0-18.0) g/dL Hct (35.0-51.0) % MCV (80.0-94.0) fL MCH (27.0-31.0) pg MCHC (33.0-37.0) g/dL RDW (11.5-14.5) % Plt Count (130-400) K/uL MPV (7.2-11.7) fL Neut % (Auto) (50.0-75.0) % Lymph % (Auto) (20.0-40.0) % [place] % (Auto) (0.0-10.0) % Eos % (Auto) (0.0-4.0) % Baso % (Auto) (0.0-2.0) % Neut # (Auto) (1.8-7.0) K/uL Lymph # (Auto) (1.0-4.3) K/uL [place] # (Auto) (0.0-0.8) K/uL Eos # (Auto) (0.0-0.7) K/uL Baso # (Auto) (0.0-0.2) K/uL Neutrophils % (Manual) 94 H (50-75) % Band Neutrophils % (0-2) % Lymphocytes % (Manual) 3 L (20-40) % Monocytes % (Manual) 2 (0-10) % Myelocytes % 1 H (0-0) % Platelet Estimate Normal (NORMAL) Large Platelets Hypochromasia (manual) Slight Poikilocytosis (manual Slight Basophilic Stippling Anisocytosis (manual) Slight Ovalocytes Puncture Site pCO2 (35-45) mm/Hg pO2 (80-100) mm/Hg HCO3 (21-28) mmol/L ABG pH (7.35-7.45) ABG Total CO2 (22-28) mmol/L ABG O2 Saturation (95-98) % ABG Base Excess (-2.0-3.0) mmol/L ABG Hemoglobin (11.7-17.4) g/dL ABG Carboxyhemoglobin (0.5-1.5) % POC ABG HHb (Measured) (0.0-5.0) % ABG Methemoglobin (0.0-3.0) % Parviz Test A-a O2 Difference mm/Hg Respiratory Index Hgb O2 Saturation (95.0-98.0) % Vent Mode Mechanical Rate FiO2 % Tidal Volume PEEP Sodium (132-148) mmol/L Potassium (3.6-5.2) mmol/L Chloride (98-107) mmol/L Carbon Dioxide (22-30) mmol/L Anion Gap (10-20) BUN (9-20) mg/dL Creatinine (0.8-1.5) mg/dL Est GFR ( Amer) Est GFR (Non-Af Amer) POC Glucose (mg/dL) (65-110) mg/dL Random Glucose (75-110) mg/dL Calcium (8.6-10.4) mg/dl Phosphorus (2.5-4.5) mg/dL Magnesium (1.6-2.3) mg/dL Total Bilirubin (0.2-1.3) mg/dL AST (17-59) U/L ALT (21-72) U/L Alkaline Phosphatase (38-126) U/L Total Protein (6.3-8.3) g/dL Albumin (3.5-5.0) g/dL Globulin (2.2-3.9) gm/dL Albumin/Globulin Ratio (1.0-2.1) Ur Random Creatinine 26.8 mg/dL Ur Random Sodium 45 mmol/L CSF Oligoclonal Bands TNP Random Vancomycin ug/mL West Nile RNA (RT-PCR) 12/02/17 Range/Units 15:14 WBC (4.8-10.8) K/uL RBC (4.40-5.90) Mil/uL Hgb (12.0-18.0) g/dL Hct (35.0-51.0) % MCV (80.0-94.0) fL MCH (27.0-31.0) pg MCHC (33.0-37.0) g/dL RDW (11.5-14.5) % Plt Count (130-400) K/uL MPV (7.2-11.7) fL Neut % (Auto) (50.0-75.0) % Lymph % (Auto) (20.0-40.0) % [place] % (Auto) (0.0-10.0) % Eos % (Auto) (0.0-4.0) % Baso % (Auto) (0.0-2.0) % Neut # (Auto) (1.8-7.0) K/uL Lymph # (Auto) (1.0-4.3) K/uL [place] # (Auto) (0.0-0.8) K/uL Eos # (Auto) (0.0-0.7) K/uL Baso # (Auto) (0.0-0.2) K/uL Neutrophils % (Manual) (50-75) % Band Neutrophils % (0-2) % Lymphocytes % (Manual) (20-40) % Monocytes % (Manual) (0-10) % Myelocytes % (0-0) % Platelet Estimate (NORMAL) Large Platelets Hypochromasia (manual) Poikilocytosis (manual Basophilic Stippling Anisocytosis (manual) Ovalocytes Puncture Site pCO2 (35-45) mm/Hg pO2 (80-100) mm/Hg HCO3 (21-28) mmol/L ABG pH (7.35-7.45) ABG Total CO2 (22-28) mmol/L ABG O2 Saturation (95-98) % ABG Base Excess (-2.0-3.0) mmol/L ABG Hemoglobin (11.7-17.4) g/dL ABG Carboxyhemoglobin (0.5-1.5) % POC ABG HHb (Measured) (0.0-5.0) % ABG Methemoglobin (0.0-3.0) % Parviz Test A-a O2 Difference mm/Hg Respiratory Index Hgb O2 Saturation (95.0-98.0) % Vent Mode Mechanical Rate FiO2 % Tidal Volume PEEP Sodium (132-148) mmol/L Potassium (3.6-5.2) mmol/L Chloride (98-107) mmol/L Carbon Dioxide (22-30) mmol/L Anion Gap (10-20) BUN (9-20) mg/dL Creatinine (0.8-1.5) mg/dL Est GFR ( Amer) Est GFR (Non-Af Amer) POC Glucose (mg/dL) (65-110) mg/dL Random Glucose (75-110) mg/dL Calcium (8.6-10.4) mg/dl Phosphorus (2.5-4.5) mg/dL Magnesium (1.6-2.3) mg/dL Total Bilirubin (0.2-1.3) mg/dL AST (17-59) U/L ALT (21-72) U/L Alkaline Phosphatase (38-126) U/L Total Protein (6.3-8.3) g/dL Albumin (3.5-5.0) g/dL Globulin (2.2-3.9) gm/dL Albumin/Globulin Ratio (1.0-2.1) Ur Random Creatinine mg/dL Ur Random Sodium mmol/L CSF Oligoclonal Bands Random Vancomycin ug/mL [place] Nile RNA (RT-PCR) TNP Laboratory Results - last 24 hr 12/02/17 12/02/17 12/07/17 15:14 15:32 11:19 WBC RBC Hgb Hct MCV MCH MCHC RDW Plt Count MPV Neut % (Auto) Lymph % (Auto) [place] % (Auto) Eos % (Auto) Baso % (Auto) Neut # (Auto) Lymph # (Auto) [place] # (Auto) Eos # (Auto) Baso # (Auto) Neutrophils % (Manual) 94 H Band Neutrophils % Lymphocytes % (Manual) 3 L Monocytes % (Manual) 2 Myelocytes % 1 H Platelet Estimate Normal Large Platelets Hypochromasia (manual) Slight Poikilocytosis (manual Slight Basophilic Stippling Anisocytosis (manual) Slight Ovalocytes Puncture Site pCO2 pO2 HCO3 ABG pH ABG Total CO2 ABG O2 Saturation ABG Base Excess ABG Hemoglobin ABG Carboxyhemoglobin POC ABG HHb (Measured) ABG Methemoglobin Parviz Test A-a O2 Difference Respiratory Index Hgb O2 Saturation Vent Mode Mechanical Rate FiO2 Tidal Volume PEEP Sodium Potassium Chloride Carbon Dioxide Anion Gap BUN Creatinine Est GFR ( Amer) Est GFR (Non-Af Amer) POC Glucose (mg/dL) Random Glucose Calcium Phosphorus Magnesium Total Bilirubin AST ALT Alkaline Phosphatase Total Protein Albumin Globulin Albumin/Globulin Ratio Ur Random Creatinine Ur Random Sodium CSF Oligoclonal Bands TNP Random Vancomycin West Nile RNA (RT-PCR) TNP 12/07/17 12/07/17 12/07/17 11:19 11:19 17:52 WBC RBC Hgb Hct MCV MCH MCHC RDW Plt Count MPV Neut % (Auto) Lymph % (Auto) [place] % (Auto) Eos % (Auto) Baso % (Auto) Neut # (Auto) Lymph # (Auto) [place] # (Auto) Eos # (Auto) Baso # (Auto) Neutrophils % (Manual) Band Neutrophils % Lymphocytes % (Manual) Monocytes % (Manual) Myelocytes % Platelet Estimate Large Platelets Hypochromasia (manual) Poikilocytosis (manual Basophilic Stippling Anisocytosis (manual) Ovalocytes Puncture Site pCO2 pO2 HCO3 ABG pH ABG Total CO2 ABG O2 Saturation ABG Base Excess ABG Hemoglobin ABG Carboxyhemoglobin POC ABG HHb (Measured) ABG Methemoglobin Parviz Test A-a O2 Difference Respiratory Index Hgb O2 Saturation Vent Mode Mechanical Rate FiO2 Tidal Volume PEEP Sodium Potassium Chloride Carbon Dioxide Anion Gap BUN Creatinine Est GFR ( Amer) Est GFR (Non-Af Amer) POC Glucose (mg/dL) 241 H Random Glucose Calcium Phosphorus Magnesium Total Bilirubin AST ALT Alkaline Phosphatase Total Protein Albumin Globulin Albumin/Globulin Ratio Ur Random Creatinine 26.8 Ur Random Sodium 45 CSF Oligoclonal Bands Random Vancomycin 14.89 [place] Nile RNA (RT-PCR) 12/08/17 12/08/17 12/08/17 00:10 05:14 06:25 WBC RBC Hgb Hct MCV MCH MCHC RDW Plt Count MPV Neut % (Auto) Lymph % (Auto) [place] % (Auto) Eos % (Auto) Baso % (Auto) Neut # (Auto) Lymph # (Auto) [place] # (Auto) Eos # (Auto) Baso # (Auto) Neutrophils % (Manual) Band Neutrophils % Lymphocytes % (Manual) Monocytes % (Manual) Myelocytes % Platelet Estimate Large Platelets Hypochromasia (manual) Poikilocytosis (manual Basophilic Stippling Anisocytosis (manual) Ovalocytes Puncture Site Lr pCO2 34 L pO2 137 H HCO3 25.3 ABG pH 7.46 H ABG Total CO2 25.2 ABG O2 Saturation 99.3 H ABG Base Excess 0.5 ABG Hemoglobin 7.7 L ABG Carboxyhemoglobin 1.2 POC ABG HHb (Measured) 0.7 ABG Methemoglobin 1.3 Parviz Test Pos A-a O2 Difference 177.0 Respiratory Index 1.3 Hgb O2 Saturation 96.9 Vent Mode Prvc Mechanical Rate 16 FiO2 50.0 Tidal Volume 450 PEEP 5 Sodium Potassium Chloride Carbon Dioxide Anion Gap BUN Creatinine Est GFR ( Amer) Est GFR (Non-Af Amer) POC Glucose (mg/dL) 220 H 305 H Random Glucose Calcium Phosphorus Magnesium Total Bilirubin AST ALT Alkaline Phosphatase Total Protein Albumin Globulin Albumin/Globulin Ratio Ur Random Creatinine Ur Random Sodium CSF Oligoclonal Bands Random Vancomycin West Nile RNA (RT-PCR) 12/08/17 12/08/17 12/08/17 06:30 06:32 10:55 WBC 15.9 H 18.7 H RBC 2.76 L 2.70 L Hgb 7.2 L 7.1 L Hct 22.3 L 21.8 L MCV 80.7 81.0 MCH 26.1 L 26.3 L MCHC 32.3 L 32.5 L RDW 16.5 H 16.2 H Plt Count 210 219 MPV 10.9 10.6 Neut % (Auto) 90.5 H Lymph % (Auto) 4.7 L [place] % (Auto) 4.7 Eos % (Auto) 0.0 Baso % (Auto) 0.1 Neut # (Auto) 14.4 H Lymph # (Auto) 0.8 L [place] # (Auto) 0.7 Eos # (Auto) 0.0 Baso # (Auto) 0.0 Neutrophils % (Manual) 93 H Band Neutrophils % 1 Lymphocytes % (Manual) 2 L Monocytes % (Manual) 3 Myelocytes % 1 H Platelet Estimate Normal Large Platelets Present Hypochromasia (manual) Slight Poikilocytosis (manual Slight Basophilic Stippling Slight Anisocytosis (manual) Slight Ovalocytes Slight Puncture Site pCO2 pO2 HCO3 ABG pH ABG Total CO2 ABG O2 Saturation ABG Base Excess ABG Hemoglobin ABG Carboxyhemoglobin POC ABG HHb (Measured) ABG Methemoglobin Parviz Test A-a O2 Difference Respiratory Index Hgb O2 Saturation Vent Mode Mechanical Rate FiO2 Tidal Volume PEEP Sodium 145 Potassium 2.9 L Chloride 110 H Carbon Dioxide 23 Anion Gap 15 BUN 97 H Creatinine 2.5 H Est GFR ( Amer) 30 Est GFR (Non-Af Amer) 24 POC Glucose (mg/dL) Random Glucose 242 H Calcium 7.3 L Phosphorus 4.5 Magnesium 1.8 Total Bilirubin 0.6 AST 21 ALT 50 Alkaline Phosphatase 65 Total Protein 4.3 L Albumin 2.1 L Globulin 2.2 Albumin/Globulin Ratio 0.9 L Ur Random Creatinine Ur Random Sodium CSF Oligoclonal Bands Random Vancomycin West Nile RNA (RT-PCR) 12/08/17 11:37 WBC RBC Hgb Hct MCV MCH MCHC RDW Plt Count MPV Neut % (Auto) Lymph % (Auto) [place] % (Auto) Eos % (Auto) Baso % (Auto) Neut # (Auto) Lymph # (Auto) [place] # (Auto) Eos # (Auto) Baso # (Auto) Neutrophils % (Manual) Band Neutrophils % Lymphocytes % (Manual) Monocytes % (Manual) Myelocytes % Platelet Estimate Large Platelets Hypochromasia (manual) Poikilocytosis (manual Basophilic Stippling Anisocytosis (manual) Ovalocytes Puncture Site pCO2 pO2 HCO3 ABG pH ABG Total CO2 ABG O2 Saturation ABG Base Excess ABG Hemoglobin ABG Carboxyhemoglobin POC ABG HHb (Measured) ABG Methemoglobin Parviz Test A-a O2 Difference Respiratory Index Hgb O2 Saturation Vent Mode Mechanical Rate FiO2 Tidal Volume PEEP Sodium Potassium Chloride Carbon Dioxide Anion Gap BUN Creatinine Est GFR ( Amer) Est GFR (Non-Af Amer) POC Glucose (mg/dL) 265 H Random Glucose Calcium Phosphorus Magnesium Total Bilirubin AST ALT Alkaline Phosphatase Total Protein Albumin Globulin Albumin/Globulin Ratio Ur Random Creatinine Ur Random Sodium CSF Oligoclonal Bands Random Vancomycin West Nile RNA (RT-PCR) Fingerstick Blood Sugar Results: 156 Review of Systems - Review of Systems Systems not reviewed;Unavailable: Acuity of Condition Assessment/Plan - Assessment and Plan (Free Text) Assessment: 87 y/o male with pmx of hydrocephalus requiring a shunt who was recently admitted to [facility] for respiratory distress. Patient was transferred to [facility] and brought back to [facility] for same complaint. Plan: Respiratory distress: intubated to protect airway: PEEP 5, FiO2:50% continue ventilation suspect VQ mismatch 2nd aspiration staph/GPC, continue bronchodilators chest ct w/o contrast showed moderate pleurel effusion, CHF vs. Portal hypertension, findings suspicious PNA in right lung apex, gallstones and fluid adjacent to gallbladder, 2.6cm density in the Right upper lobe U/S for Pleural Effusion. Results showed not enough fluid to have pigtail cath placment. Will continue to watch. Continue CPAP trials today. Sepsis serial lactic LP reveals no WBC, non reacitive to VDRL, elevated protein and glucose. no hydrocephalus as presusre only 5 de-escalate abx, pending HSV PCR continue Zyvox/aztronam/doxy repeat procal 1.15 AMS suspect chronic -continue peg tube feeds CAD/NSTEMI/P. A-fib./flutter: asa, statin. Cardizem 60mg Q6 obtain cardiology eval,monitor to keep MAP >65, Echo: EF 50%, mild to moderate concentric LVH, and mild M.R. HR controlled today Lopressor 5mg PO Q6 priscila. Continue Heparin 5000 units sc q8. SIMON Creatinine 2.5 today. Slight improvement from prior day. 2nd sepsis/hypotension avoid nephrotoxic drgus Urine sodium:45, Urine osm:398, Urine Creatinine:268 DVT ppx heparin -pud ppx pepcid -bgm q6hrs,ISS <OchoaNiranjan acharya M - Last Filed: 12/09/17 14:32> CCU Objective - Vital Signs / Intake & Output Vital Signs (Last 4 hours): Vital Signs BP 12/09/17 11:04 121/54 L Intake and Output (Last 8hrs): Intake & Output 12/08/17 12/09/17 12/09/17 22:59 06:59 14:59 Intake Total 1165 1730 200 Output Total 675 695 150 Balance 490 1035 50 Intake: Intake, IV Amount 700 1000 200 Right Distal Port 400 800 200 Internal Jugular Right Medial Port 300 200 Internal Jugular Tube Feeding 90 30 0 Blood Product 325 650 Red Blood Cells Cpd As1 325 Lr Unit [id number] Red Blood Cells Cpd As1 325 Lr Unit [id number] Albumin 50 Other 50 Red Blood Cells Cpd As1 50 Lr Unit [id number] Output: Urine 675 695 150 Urethral (Morgan) 675 695 150 Other: # Bowel Movements 1 2 - Medications Active Medications: Active Medications Generic Name Dose Route Start Last Admin Trade Name Freq PRN Reason Stop Dose Admin Acetaminophen 650 mg 12/02/17 07:49 12/07/17 21:00 Tylenol 650mg/20.3ml Solution Ud PO 650 mg Q6 PRN Administration fever Aspirin 81 mg 12/02/17 10:00 12/08/17 09:55 Aspirin Chewable PO 81 mg DAILY PRISCILA Administration Bisacodyl 10 mg 12/03/17 11:57 Dulcolax NV Q24H PRN Constipation Diltiazem HCl 60 mg 12/05/17 12:00 12/09/17 11:35 Cardizem PO 60 mg Q6 PRISCILA Administration Famotidine 20 mg 12/07/17 12:30 12/09/17 09:11 Pepcid IVP 20 mg DAILY [facility] Administration Heparin Sodium (Porcine) 5,000 units 12/07/17 22:00 12/08/17 06:21 Heparin SC 5,000 units Q8 [facility] Administration Doxycycline Hyclate 100 mg/ 100 mls @ 100 mls/hr 12/03/17 12:30 12/09/17 11: 34 Sodium Chloride IVPB 100 mls/hr Q12H PRISCILA Administration Linezolid 600 mg in 300 mls @ 200 mls/hr 12/05/17 10:00 12/09/17 09:12 Zyvox 600mg/300ml D5w IVPB 200 mls/hr Q12 [facility] Administration Aztreonam 1 gm/ Sodium 100 mls @ 100 mls/hr 12/05/17 13:00 12/09/17 00:30 Chloride IVPB 100 mls/hr Q12H PRISCILA Administration Insulin Aspart 0 unit 12/06/17 12:00 12/09/17 06:14 Novolog SC Not Given Q6 [facility] Protocol Insulin Detemir 10 unit 12/08/17 22:00 12/08/17 21:03 Levemir SC 10 unit HS PRISCILA Administration Latanoprost 0 ml 12/01/17 23:45 12/08/17 21:05 Xalatan Opht OD 2.5 ml HS PRISCILA Administration Metoprolol Tartrate 25 mg 12/08/17 18:00 12/09/17 11:04 Lopressor PO 25 mg BID PRISCILA Administration Sodium Bicarbonate 650 mg 12/06/17 18:00 12/09/17 11:04 Sodium Bicarbonate Tab PO 650 mg BID PRISCILA Administration Sucralfate 1 gm 12/03/17 18:00 12/09/17 11:04 Carafate Oral Susp PO 1 gm TID PRISCILA Administration - Patient Studies Lab Studies: Microbiology Studies 12/08/17 04:00 Blood Culture - Preliminary Blood-Venous NO GROWTH AFTER 24 HOURS 12/08/17 04:00 Blood Culture - Preliminary Blood-Venous NO GROWTH AFTER 24 HOURS Lab Studies 12/09/17 12/09/17 12/09/17 Range/Units 06:22 06:21 05:24 WBC 16.7 H (4.8-10.8) K/uL RBC 3.35 L (4.40-5.90) Mil/uL Hgb 8.8 L (12.0-18.0) g/dL Hct 27.1 L (35.0-51.0) % MCV 80.9 (80.0-94.0) fL MCH 26.2 L (27.0-31.0) pg MCHC 32.4 L (33.0-37.0) g/dL RDW 16.5 H (11.5-14.5) % Plt Count 173 (130-400) K/uL MPV 10.0 (7.2-11.7) fL Neut % (Auto) 91.5 H (50.0-75.0) % Lymph % (Auto) 5.1 L (20.0-40.0) % [place] % (Auto) 3.3 (0.0-10.0) % Eos % (Auto) 0.0 (0.0-4.0) % Baso % (Auto) 0.1 (0.0-2.0) % Neut # (Auto) 15.2 H (1.8-7.0) K/uL Lymph # (Auto) 0.8 L (1.0-4.3) K/uL [place] # (Auto) 0.5 (0.0-0.8) K/uL Eos # (Auto) 0.0 (0.0-0.7) K/uL Baso # (Auto) 0.0 (0.0-0.2) K/uL Neutrophils % (Manual) 91 H (50-75) % Lymphocytes % (Manual) 6 L (20-40) % Monocytes % (Manual) 3 (0-10) % Platelet Estimate Normal (NORMAL) Polychromasia Slight Poikilocytosis (manual Slight Anisocytosis (manual) Slight Ovalocytes Slight [place] Cells Slight PT (9.7-12.2) SECONDS INR APTT (21-34) SECONDS Puncture Site pCO2 (35-45) mm/Hg pO2 (80-100) mm/Hg HCO3 (21-28) mmol/L ABG pH (7.35-7.45) ABG Total CO2 (22-28) mmol/L ABG O2 Saturation (95-98) % ABG Base Excess (-2.0-3.0) mmol/L ABG Hemoglobin (11.7-17.4) g/dL ABG Carboxyhemoglobin (0.5-1.5) % POC ABG HHb (Measured) (0.0-5.0) % ABG Methemoglobin (0.0-3.0) % Parviz Test A-a O2 Difference mm/Hg Respiratory Index Hgb O2 Saturation (95.0-98.0) % Vent Mode Mechanical Rate FiO2 % Tidal Volume PEEP Sodium 147 (132-148) mmol/L Potassium 3.3 L (3.6-5.2) mmol/L Chloride 114 H (98-107) mmol/L Carbon Dioxide 24 (22-30) mmol/L Anion Gap 13 (10-20) BUN 95 H (9-20) mg/dL Creatinine 2.4 H (0.8-1.5) mg/dL Est GFR ( Amer) 31 Est GFR (Non-Af Amer) 26 POC Glucose (mg/dL) 253 H (65-110) mg/dL Random Glucose 196 H (75-110) mg/dL Calcium 7.9 L (8.6-10.4) mg/dl Phosphorus 4.1 (2.5-4.5) mg/dL Magnesium 1.9 (1.6-2.3) mg/dL Total Bilirubin 0.5 (0.2-1.3) mg/dL AST 24 (17-59) U/L ALT 52 (21-72) U/L Alkaline Phosphatase 53 (38-126) U/L Total Protein 4.2 L (6.3-8.3) g/dL Albumin 2.2 L (3.5-5.0) g/dL Globulin 2.0 L (2.2-3.9) gm/dL Albumin/Globulin Ratio 1.1 (1.0-2.1) Urine Color (YELLOW) Urine Clarity (Clear) Urine pH (5.0-8.0) Ur Specific [place] (1.003-1.030) Urine Protein (NEGATIVE) mg/dL Urine Glucose (UA) (Normal) mg/dL Urine Ketones (NEGATIVE) mg/dL Urine Blood (NEGATIVE) Urine Nitrate (NEGATIVE) Urine Bilirubin (NEGATIVE) Urine Urobilinogen (0.2-1.0) mg/dL Ur Leukocyte Esterase (Negative) Keyur/uL Urine WBC (Auto) (0-5) /hpf Urine RBC (Auto) (0-3) /hpf Ur Squamous Epith Cells (0-5) /hpf Amorphous Sediment (<OCC) /ul Urine Bacteria (<OCC) Ur Random Sodium mmol/L Urine Collection Time HRS Urine Total Volume mL Ur Protein 24 Hr Calc (42-225) mg/24hr [place] RNA (RT-PCR) (Not Detected) Blood Type Antibody Screen 12/09/17 12/09/17 12/09/17 Range/Units 04:15 02:15 01:33 WBC (4.8-10.8) K/uL RBC (4.40-5.90) Mil/uL Hgb (12.0-18.0) g/dL Hct (35.0-51.0) % MCV (80.0-94.0) fL MCH (27.0-31.0) pg MCHC (33.0-37.0) g/dL RDW (11.5-14.5) % Plt Count (130-400) K/uL MPV (7.2-11.7) fL Neut % (Auto) (50.0-75.0) % Lymph % (Auto) (20.0-40.0) % [place] % (Auto) (0.0-10.0) % Eos % (Auto) (0.0-4.0) % Baso % (Auto) (0.0-2.0) % Neut # (Auto) (1.8-7.0) K/uL Lymph # (Auto) (1.0-4.3) K/uL [place] # (Auto) (0.0-0.8) K/uL Eos # (Auto) (0.0-0.7) K/uL Baso # (Auto) (0.0-0.2) K/uL Neutrophils % (Manual) (50-75) % Lymphocytes % (Manual) (20-40) % Monocytes % (Manual) (0-10) % Platelet Estimate (NORMAL) Polychromasia Poikilocytosis (manual Anisocytosis (manual) Ovalocytes Danni Cells PT 13.1 H (9.7-12.2) SECONDS INR 1.2 APTT 32 (21-34) SECONDS Puncture Site Lb pCO2 31 L (35-45) mm/Hg pO2 106 H (80-100) mm/Hg HCO3 24.4 (21-28) mmol/L ABG pH 7.47 H (7.35-7.45) ABG Total CO2 23.6 (22-28) mmol/L ABG O2 Saturation 99.3 H (95-98) % ABG Base Excess -0.7 (-2.0-3.0) mmol/L ABG Hemoglobin 9.1 L (11.7-17.4) g/dL ABG Carboxyhemoglobin 1.6 H (0.5-1.5) % POC ABG HHb (Measured) 0.7 (0.0-5.0) % ABG Methemoglobin 1.2 (0.0-3.0) % Parviz Test Na A-a O2 Difference 140.0 mm/Hg Respiratory Index 1.3 Hgb O2 Saturation 96.5 (95.0-98.0) % Vent Mode Prvc Mechanical Rate 16 FiO2 40.0 % Tidal Volume 450 PEEP 5 Sodium (132-148) mmol/L Potassium (3.6-5.2) mmol/L Chloride (98-107) mmol/L Carbon Dioxide (22-30) mmol/L Anion Gap (10-20) BUN (9-20) mg/dL Creatinine (0.8-1.5) mg/dL Est GFR ( Amer) Est GFR (Non-Af Amer) POC Glucose (mg/dL) (65-110) mg/dL Random Glucose (75-110) mg/dL Calcium (8.6-10.4) mg/dl Phosphorus (2.5-4.5) mg/dL Magnesium (1.6-2.3) mg/dL Total Bilirubin (0.2-1.3) mg/dL AST (17-59) U/L ALT (21-72) U/L Alkaline Phosphatase (38-126) U/L Total Protein (6.3-8.3) g/dL Albumin (3.5-5.0) g/dL Globulin (2.2-3.9) gm/dL Albumin/Globulin Ratio (1.0-2.1) Urine Color (YELLOW) Urine Clarity (Clear) Urine pH (5.0-8.0) Ur Specific [place] (1.003-1.030) Urine Protein (NEGATIVE) mg/dL Urine Glucose (UA) (Normal) mg/dL Urine Ketones (NEGATIVE) mg/dL Urine Blood (NEGATIVE) Urine Nitrate (NEGATIVE) Urine Bilirubin (NEGATIVE) Urine Urobilinogen (0.2-1.0) mg/dL Ur Leukocyte Esterase (Negative) Keyur/uL Urine WBC (Auto) (0-5) /hpf Urine RBC (Auto) (0-3) /hpf Ur Squamous Epith Cells (0-5) /hpf Amorphous Sediment (<OCC) /ul Urine Bacteria (<OCC) Ur Random Sodium mmol/L Urine Collection Time 24 HRS Urine Total Volume 1900 mL Ur Protein 24 Hr Calc 380.0 H (42-225) mg/24hr [place] RNA (RT-PCR) (Not Detected) Blood Type Antibody Screen 12/08/17 12/08/17 12/08/17 Range/Units 23:37 20:40 20:40 WBC 15.7 H (4.8-10.8) K/uL RBC 2.80 L (4.40-5.90) Mil/uL Hgb 7.5 L (12.0-18.0) g/dL Hct 23.0 L (35.0-51.0) % MCV 82.3 (80.0-94.0) fL MCH 26.9 L (27.0-31.0) pg MCHC 32.7 L (33.0-37.0) g/dL RDW 15.7 H (11.5-14.5) % Plt Count 184 (130-400) K/uL MPV 9.6 (7.2-11.7) fL Neut % (Auto) (50.0-75.0) % Lymph % (Auto) (20.0-40.0) % [place] % (Auto) (0.0-10.0) % Eos % (Auto) (0.0-4.0) % Baso % (Auto) (0.0-2.0) % Neut # (Auto) (1.8-7.0) K/uL Lymph # (Auto) (1.0-4.3) K/uL [place] # (Auto) (0.0-0.8) K/uL Eos # (Auto) (0.0-0.7) K/uL Baso # (Auto) (0.0-0.2) K/uL Neutrophils % (Manual) (50-75) % Lymphocytes % (Manual) (20-40) % Monocytes % (Manual) (0-10) % Platelet Estimate (NORMAL) Polychromasia Poikilocytosis (manual Anisocytosis (manual) Ovalocytes [place] Cells PT (9.7-12.2) SECONDS INR APTT (21-34) SECONDS Puncture Site pCO2 (35-45) mm/Hg pO2 (80-100) mm/Hg HCO3 (21-28) mmol/L ABG pH (7.35-7.45) ABG Total CO2 (22-28) mmol/L ABG O2 Saturation (95-98) % ABG Base Excess (-2.0-3.0) mmol/L ABG Hemoglobin (11.7-17.4) g/dL ABG Carboxyhemoglobin (0.5-1.5) % POC ABG HHb (Measured) (0.0-5.0) % ABG Methemoglobin (0.0-3.0) % Parviz Test A-a O2 Difference mm/Hg Respiratory Index Hgb O2 Saturation (95.0-98.0) % Vent Mode Mechanical Rate FiO2 % Tidal Volume PEEP Sodium 147 (132-148) mmol/L Potassium 3.5 L (3.6-5.2) mmol/L Chloride 114 H (98-107) mmol/L Carbon Dioxide 24 (22-30) mmol/L Anion Gap 12 (10-20) BUN 94 H (9-20) mg/dL Creatinine 2.6 H (0.8-1.5) mg/dL Est GFR ( Amer) 28 Est GFR (Non-Af Amer) 23 POC Glucose (mg/dL) 237 H (65-110) mg/dL Random Glucose 178 H (75-110) mg/dL Calcium 7.7 L (8.6-10.4) mg/dl Phosphorus (2.5-4.5) mg/dL Magnesium (1.6-2.3) mg/dL Total Bilirubin (0.2-1.3) mg/dL AST (17-59) U/L ALT (21-72) U/L Alkaline Phosphatase (38-126) U/L Total Protein (6.3-8.3) g/dL Albumin (3.5-5.0) g/dL Globulin (2.2-3.9) gm/dL Albumin/Globulin Ratio (1.0-2.1) Urine Color (YELLOW) Urine Clarity (Clear) Urine pH (5.0-8.0) Ur Specific [place] (1.003-1.030) Urine Protein (NEGATIVE) mg/dL Urine Glucose (UA) (Normal) mg/dL Urine Ketones (NEGATIVE) mg/dL Urine Blood (NEGATIVE) Urine Nitrate (NEGATIVE) Urine Bilirubin (NEGATIVE) Urine Urobilinogen (0.2-1.0) mg/dL Ur Leukocyte Esterase (Negative) Keyur/uL Urine WBC (Auto) (0-5) /hpf Urine RBC (Auto) (0-3) /hpf Ur Squamous Epith Cells (0-5) /hpf Amorphous Sediment (<OCC) /ul Urine Bacteria (<OCC) Ur Random Sodium mmol/L Urine Collection Time HRS Urine Total Volume mL Ur Protein 24 Hr Calc (42-225) mg/24hr [place] RNA (RT-PCR) (Not Detected) Blood Type Antibody Screen 12/08/17 12/08/17 12/08/17 Range/Units 19:02 19:02 17:45 WBC (4.8-10.8) K/uL RBC (4.40-5.90) Mil/uL Hgb (12.0-18.0) g/dL Hct (35.0-51.0) % MCV (80.0-94.0) fL MCH (27.0-31.0) pg MCHC (33.0-37.0) g/dL RDW (11.5-14.5) % Plt Count (130-400) K/uL MPV (7.2-11.7) fL Neut % (Auto) (50.0-75.0) % Lymph % (Auto) (20.0-40.0) % [place] % (Auto) (0.0-10.0) % Eos % (Auto) (0.0-4.0) % Baso % (Auto) (0.0-2.0) % Neut # (Auto) (1.8-7.0) K/uL Lymph # (Auto) (1.0-4.3) K/uL [place] # (Auto) (0.0-0.8) K/uL Eos # (Auto) (0.0-0.7) K/uL Baso # (Auto) (0.0-0.2) K/uL Neutrophils % (Manual) (50-75) % Lymphocytes % (Manual) (20-40) % Monocytes % (Manual) (0-10) % Platelet Estimate (NORMAL) Polychromasia Poikilocytosis (manual Anisocytosis (manual) Ovalocytes Danni Cells PT (9.7-12.2) SECONDS INR APTT (21-34) SECONDS Puncture Site pCO2 (35-45) mm/Hg pO2 (80-100) mm/Hg HCO3 (21-28) mmol/L ABG pH (7.35-7.45) ABG Total CO2 (22-28) mmol/L ABG O2 Saturation (95-98) % ABG Base Excess (-2.0-3.0) mmol/L ABG Hemoglobin (11.7-17.4) g/dL ABG Carboxyhemoglobin (0.5-1.5) % POC ABG HHb (Measured) (0.0-5.0) % ABG Methemoglobin (0.0-3.0) % Parviz Test A-a O2 Difference mm/Hg Respiratory Index Hgb O2 Saturation (95.0-98.0) % Vent Mode Mechanical Rate FiO2 % Tidal Volume PEEP Sodium (132-148) mmol/L Potassium (3.6-5.2) mmol/L Chloride (98-107) mmol/L Carbon Dioxide (22-30) mmol/L Anion Gap (10-20) BUN (9-20) mg/dL Creatinine (0.8-1.5) mg/dL Est GFR ( Amer) Est GFR (Non-Af Amer) POC Glucose (mg/dL) 187 H (65-110) mg/dL Random Glucose (75-110) mg/dL Calcium (8.6-10.4) mg/dl Phosphorus (2.5-4.5) mg/dL Magnesium (1.6-2.3) mg/dL Total Bilirubin (0.2-1.3) mg/dL AST (17-59) U/L ALT (21-72) U/L Alkaline Phosphatase (38-126) U/L Total Protein (6.3-8.3) g/dL Albumin (3.5-5.0) g/dL Globulin (2.2-3.9) gm/dL Albumin/Globulin Ratio (1.0-2.1) Urine Color Yellow (YELLOW) Urine Clarity Hazy (Clear) Urine pH 5.0 (5.0-8.0) Ur Specific [place] 1.014 (1.003-1.030) Urine Protein Negative (NEGATIVE) mg/dL Urine Glucose (UA) Normal (Normal) mg/dL Urine Ketones Negative (NEGATIVE) mg/dL Urine Blood Negative (NEGATIVE) Urine Nitrate Negative (NEGATIVE) Urine Bilirubin Negative (NEGATIVE) Urine Urobilinogen Normal (0.2-1.0) mg/dL Ur Leukocyte Esterase Neg (Negative) Keyur/uL Urine WBC (Auto) 3 (0-5) /hpf Urine RBC (Auto) 4 H (0-3) /hpf Ur Squamous Epith Cells < 1 (0-5) /hpf Amorphous Sediment Occ H (<OCC) /ul Urine Bacteria Few H (<OCC) Ur Random Sodium 21 mmol/L Urine Collection Time HRS Urine Total Volume mL Ur Protein 24 Hr Calc (42-225) mg/24hr [place] RNA (RT-PCR) (Not Detected) Blood Type Antibody Screen 12/08/17 12/02/17 Range/Units 10:59 14:11 WBC (4.8-10.8) K/uL RBC (4.40-5.90) Mil/uL Hgb (12.0-18.0) g/dL Hct (35.0-51.0) % MCV (80.0-94.0) fL MCH (27.0-31.0) pg MCHC (33.0-37.0) g/dL RDW (11.5-14.5) % Plt Count (130-400) K/uL MPV (7.2-11.7) fL Neut % (Auto) (50.0-75.0) % Lymph % (Auto) (20.0-40.0) % [place] % (Auto) (0.0-10.0) % Eos % (Auto) (0.0-4.0) % Baso % (Auto) (0.0-2.0) % Neut # (Auto) (1.8-7.0) K/uL Lymph # (Auto) (1.0-4.3) K/uL [place] # (Auto) (0.0-0.8) K/uL Eos # (Auto) (0.0-0.7) K/uL Baso # (Auto) (0.0-0.2) K/uL Neutrophils % (Manual) (50-75) % Lymphocytes % (Manual) (20-40) % Monocytes % (Manual) (0-10) % Platelet Estimate (NORMAL) Polychromasia Poikilocytosis (manual Anisocytosis (manual) Ovalocytes [place] Cells PT (9.7-12.2) SECONDS INR APTT (21-34) SECONDS Puncture Site pCO2 (35-45) mm/Hg pO2 (80-100) mm/Hg HCO3 (21-28) mmol/L ABG pH (7.35-7.45) ABG Total CO2 (22-28) mmol/L ABG O2 Saturation (95-98) % ABG Base Excess (-2.0-3.0) mmol/L ABG Hemoglobin (11.7-17.4) g/dL ABG Carboxyhemoglobin (0.5-1.5) % POC ABG HHb (Measured) (0.0-5.0) % ABG Methemoglobin (0.0-3.0) % Parviz Test A-a O2 Difference mm/Hg Respiratory Index Hgb O2 Saturation (95.0-98.0) % Vent Mode Mechanical Rate FiO2 % Tidal Volume PEEP Sodium (132-148) mmol/L Potassium (3.6-5.2) mmol/L Chloride (98-107) mmol/L Carbon Dioxide (22-30) mmol/L Anion Gap (10-20) BUN (9-20) mg/dL Creatinine (0.8-1.5) mg/dL Est GFR ( Amer) Est GFR (Non-Af Amer) POC Glucose (mg/dL) (65-110) mg/dL Random Glucose (75-110) mg/dL Calcium (8.6-10.4) mg/dl Phosphorus (2.5-4.5) mg/dL Magnesium (1.6-2.3) mg/dL Total Bilirubin (0.2-1.3) mg/dL AST (17-59) U/L ALT (21-72) U/L Alkaline Phosphatase (38-126) U/L Total Protein (6.3-8.3) g/dL Albumin (3.5-5.0) g/dL Globulin (2.2-3.9) gm/dL Albumin/Globulin Ratio (1.0-2.1) Urine Color (YELLOW) Urine Clarity (Clear) Urine pH (5.0-8.0) Ur Specific [place] (1.003-1.030) Urine Protein (NEGATIVE) mg/dL Urine Glucose (UA) (Normal) mg/dL Urine Ketones (NEGATIVE) mg/dL Urine Blood (NEGATIVE) Urine Nitrate (NEGATIVE) Urine Bilirubin (NEGATIVE) Urine Urobilinogen (0.2-1.0) mg/dL Ur Leukocyte Esterase (Negative) Keyur/uL Urine WBC (Auto) (0-5) /hpf Urine RBC (Auto) (0-3) /hpf Ur Squamous Epith Cells (0-5) /hpf Amorphous Sediment (<OCC) /ul Urine Bacteria (<OCC) Ur Random Sodium mmol/L Urine Collection Time HRS Urine Total Volume mL Ur Protein 24 Hr Calc (42-225) mg/24hr [place] RNA (RT-PCR) Not detected (Not Detected) Blood Type O POSITIVE Antibody Screen Negative Laboratory Results - last 24 hr 12/02/17 12/08/17 12/08/17 14:11 10:59 17:45 WBC RBC Hgb Hct MCV MCH MCHC RDW Plt Count MPV Neut % (Auto) Lymph % (Auto) [place] % (Auto) Eos % (Auto) Baso % (Auto) Neut # (Auto) Lymph # (Auto) [place] # (Auto) Eos # (Auto) Baso # (Auto) Neutrophils % (Manual) Lymphocytes % (Manual) Monocytes % (Manual) Platelet Estimate Polychromasia Poikilocytosis (manual Anisocytosis (manual) Ovalocytes [place] Cells PT INR APTT Puncture Site pCO2 pO2 HCO3 ABG pH ABG Total CO2 ABG O2 Saturation ABG Base Excess ABG Hemoglobin ABG Carboxyhemoglobin POC ABG HHb (Measured) ABG Methemoglobin Parviz Test A-a O2 Difference Respiratory Index Hgb O2 Saturation Vent Mode Mechanical Rate FiO2 Tidal Volume PEEP Sodium Potassium Chloride Carbon Dioxide Anion Gap BUN Creatinine Est GFR ( Amer) Est GFR (Non-Af Amer) POC Glucose (mg/dL) 187 H Random Glucose Calcium Phosphorus Magnesium Total Bilirubin AST ALT Alkaline Phosphatase Total Protein Albumin Globulin Albumin/Globulin Ratio Urine Color Urine Clarity Urine pH Ur Specific [place] Urine Protein Urine Glucose (UA) Urine Ketones Urine Blood Urine Nitrate Urine Bilirubin Urine Urobilinogen Ur Leukocyte Esterase Urine WBC (Auto) Urine RBC (Auto) Ur Squamous Epith Cells Amorphous Sediment Urine Bacteria Ur Random Sodium Urine Collection Time Urine Total Volume Ur Protein 24 Hr Calc [place] RNA (RT-PCR) Not detected Blood Type O POSITIVE Antibody Screen Negative 12/08/17 12/08/17 12/08/17 19:02 19:02 20:40 WBC 15.7 H RBC 2.80 L Hgb 7.5 L Hct 23.0 L MCV 82.3 MCH 26.9 L MCHC 32.7 L RDW 15.7 H Plt Count 184 MPV 9.6 Neut % (Auto) Lymph % (Auto) [place] % (Auto) Eos % (Auto) Baso % (Auto) Neut # (Auto) Lymph # (Auto) [place] # (Auto) Eos # (Auto) Baso # (Auto) Neutrophils % (Manual) Lymphocytes % (Manual) Monocytes % (Manual) Platelet Estimate Polychromasia Poikilocytosis (manual Anisocytosis (manual) Ovalocytes Danni Cells PT INR APTT Puncture Site pCO2 pO2 HCO3 ABG pH ABG Total CO2 ABG O2 Saturation ABG Base Excess ABG Hemoglobin ABG Carboxyhemoglobin POC ABG HHb (Measured) ABG Methemoglobin Parviz Test A-a O2 Difference Respiratory Index Hgb O2 Saturation Vent Mode Mechanical Rate FiO2 Tidal Volume PEEP Sodium Potassium Chloride Carbon Dioxide Anion Gap BUN Creatinine Est GFR ( Amer) Est GFR (Non-Af Amer) POC Glucose (mg/dL) Random Glucose Calcium Phosphorus Magnesium Total Bilirubin AST ALT Alkaline Phosphatase Total Protein Albumin Globulin Albumin/Globulin Ratio Urine Color Yellow Urine Clarity Hazy Urine pH 5.0 Ur Specific [place] 1.014 Urine Protein Negative Urine Glucose (UA) Normal Urine Ketones Negative Urine Blood Negative Urine Nitrate Negative Urine Bilirubin Negative Urine Urobilinogen Normal Ur Leukocyte Esterase Neg Urine WBC (Auto) 3 Urine RBC (Auto) 4 H Ur Squamous Epith Cells < 1 Amorphous Sediment Occ H Urine Bacteria Few H Ur Random Sodium 21 Urine Collection Time Urine Total Volume Ur Protein 24 Hr Calc [place] RNA (RT-PCR) Blood Type Antibody Screen 12/08/17 12/08/17 12/09/17 20:40 23:37 01:33 WBC RBC Hgb Hct MCV MCH MCHC RDW Plt Count MPV Neut % (Auto) Lymph % (Auto) [place] % (Auto) Eos % (Auto) Baso % (Auto) Neut # (Auto) Lymph # (Auto) [place] # (Auto) Eos # (Auto) Baso # (Auto) Neutrophils % (Manual) Lymphocytes % (Manual) Monocytes % (Manual) Platelet Estimate Polychromasia Poikilocytosis (manual Anisocytosis (manual) Ovalocytes [place] Cells PT 13.1 H INR 1.2 APTT 32 Puncture Site pCO2 pO2 HCO3 ABG pH ABG Total CO2 ABG O2 Saturation ABG Base Excess ABG Hemoglobin ABG Carboxyhemoglobin POC ABG HHb (Measured) ABG Methemoglobin Parviz Test A-a O2 Difference Respiratory Index Hgb O2 Saturation Vent Mode Mechanical Rate FiO2 Tidal Volume PEEP Sodium 147 Potassium 3.5 L Chloride 114 H Carbon Dioxide 24 Anion Gap 12 BUN 94 H Creatinine 2.6 H Est GFR ( Amer) 28 Est GFR (Non-Af Amer) 23 POC Glucose (mg/dL) 237 H Random Glucose 178 H Calcium 7.7 L Phosphorus Magnesium Total Bilirubin AST ALT Alkaline Phosphatase Total Protein Albumin Globulin Albumin/Globulin Ratio Urine Color Urine Clarity Urine pH Ur Specific [place] Urine Protein Urine Glucose (UA) Urine Ketones Urine Blood Urine Nitrate Urine Bilirubin Urine Urobilinogen Ur Leukocyte Esterase Urine WBC (Auto) Urine RBC (Auto) Ur Squamous Epith Cells Amorphous Sediment Urine Bacteria Ur Random Sodium Urine Collection Time Urine Total Volume Ur Protein 24 Hr Calc [place] RNA (RT-PCR) Blood Type Antibody Screen 12/09/17 12/09/17 12/09/17 02:15 04:15 05:24 WBC RBC Hgb Hct MCV MCH MCHC RDW Plt Count MPV Neut % (Auto) Lymph % (Auto) [place] % (Auto) Eos % (Auto) Baso % (Auto) Neut # (Auto) Lymph # (Auto) [place] # (Auto) Eos # (Auto) Baso # (Auto) Neutrophils % (Manual) Lymphocytes % (Manual) Monocytes % (Manual) Platelet Estimate Polychromasia Poikilocytosis (manual Anisocytosis (manual) Ovalocytes [place] Cells PT INR APTT Puncture Site Lb pCO2 31 L pO2 106 H HCO3 24.4 ABG pH 7.47 H ABG Total CO2 23.6 ABG O2 Saturation 99.3 H ABG Base Excess -0.7 ABG Hemoglobin 9.1 L ABG Carboxyhemoglobin 1.6 H POC ABG HHb (Measured) 0.7 ABG Methemoglobin 1.2 Parviz Test Na A-a O2 Difference 140.0 Respiratory Index 1.3 Hgb O2 Saturation 96.5 Vent Mode Prvc Mechanical Rate 16 FiO2 40.0 Tidal Volume 450 PEEP 5 Sodium Potassium Chloride Carbon Dioxide Anion Gap BUN Creatinine Est GFR ( Amer) Est GFR (Non-Af Amer) POC Glucose (mg/dL) 253 H Random Glucose Calcium Phosphorus Magnesium Total Bilirubin AST ALT Alkaline Phosphatase Total Protein Albumin Globulin Albumin/Globulin Ratio Urine Color Urine Clarity Urine pH Ur Specific [place] Urine Protein Urine Glucose (UA) Urine Ketones Urine Blood Urine Nitrate Urine Bilirubin Urine Urobilinogen Ur Leukocyte Esterase Urine WBC (Auto) Urine RBC (Auto) Ur Squamous Epith Cells Amorphous Sediment Urine Bacteria Ur Random Sodium Urine Collection Time 24 Urine Total Volume 1900 Ur Protein 24 Hr Calc 380.0 H [place] RNA (RT-PCR) Blood Type Antibody Screen 12/09/17 12/09/17 06:21 06:22 WBC 16.7 H RBC 3.35 L Hgb 8.8 L Hct 27.1 L MCV 80.9 MCH 26.2 L MCHC 32.4 L RDW 16.5 H Plt Count 173 MPV 10.0 Neut % (Auto) 91.5 H Lymph % (Auto) 5.1 L [place] % (Auto) 3.3 Eos % (Auto) 0.0 Baso % (Auto) 0.1 Neut # (Auto) 15.2 H Lymph # (Auto) 0.8 L [place] # (Auto) 0.5 Eos # (Auto) 0.0 Baso # (Auto) 0.0 Neutrophils % (Manual) 91 H Lymphocytes % (Manual) 6 L Monocytes % (Manual) 3 Platelet Estimate Normal Polychromasia Slight Poikilocytosis (manual Slight Anisocytosis (manual) Slight Ovalocytes Slight [place] Cells Slight PT INR APTT Puncture Site pCO2 pO2 HCO3 ABG pH ABG Total CO2 ABG O2 Saturation ABG Base Excess ABG Hemoglobin ABG Carboxyhemoglobin POC ABG HHb (Measured) ABG Methemoglobin Parviz Test A-a O2 Difference Respiratory Index Hgb O2 Saturation Vent Mode Mechanical Rate FiO2 Tidal Volume PEEP Sodium 147 Potassium 3.3 L Chloride 114 H Carbon Dioxide 24 Anion Gap 13 BUN 95 H Creatinine 2.4 H Est GFR ( Amer) 31 Est GFR (Non-Af Amer) 26 POC Glucose (mg/dL) Random Glucose 196 H Calcium 7.9 L Phosphorus 4.1 Magnesium 1.9 Total Bilirubin 0.5 AST 24 ALT 52 Alkaline Phosphatase 53 Total Protein 4.2 L Albumin 2.2 L Globulin 2.0 L Albumin/Globulin Ratio 1.1 Urine Color Urine Clarity Urine pH Ur Specific [place] Urine Protein Urine Glucose (UA) Urine Ketones Urine Blood Urine Nitrate Urine Bilirubin Urine Urobilinogen Ur Leukocyte Esterase Urine WBC (Auto) Urine RBC (Auto) Ur Squamous Epith Cells Amorphous Sediment Urine Bacteria Ur Random Sodium Urine Collection Time Urine Total Volume Ur Protein 24 Hr Calc [place] RNA (RT-PCR) Blood Type Antibody Screen Assessment/Plan - Assessment and Plan (Free Text) Plan: Above patient seen and examiend at bedside with above resident. above redient documnted managmenet and discussion of patient. -Respiratory failure: with poor mental status not a candidate for extubation, will offer trach -Acute blood loss anemia: 2nd AC 2nd DVT--tranfuse PRBC to keep hb/hct >8/24 -DVT: will offer IVF filter as patient cannot tolerate full dose Anticoagulatin -sepsis: continue empriical abx, f/u cultures -CAd/NSTEMI/A-flutter:continue current management -continue dvt/pud -contineu peg tube feeds cc time 45 minutes - Date & Time Date: 12/08/17 Time: 17:00
--- NOTE | 2017-12-08 16:43 | CP.PCM.CON ---
History of Present Illness - History of Present Illness History of Present Illness: Palliative consult requested by Dr. Hinton , manager medical writing for goals of care discussion Patient is 87 years old man [facility] with lethargy, sepsis. Upon admission to ED patient was intubated for respiratory support. The Doppler of lower extremities was significant for bilateral DVT. 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 The CAT scan of the chest was significant for bilateral pleural effusion and anasarca. White count was elevated on admission. IV antibiotics initiated. 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 Parents Review of Systems - Review of Systems All systems: reviewed and no additional remarkable complaints except Review of Systems: Review of system obtained from the , due to patient's intubated status. patient has been on the mechanical ventilation with no acute developments. No fever Past Patient History - Past Medical History & Family History Past Medical History?: Yes - Past Social History Smoking Status: Never Smoked - CARDIAC Hx Atrial Fibrillation: Yes Hx Hypertension: Yes - PULMONARY Hx Respiratory Disorders: No - NEUROLOGICAL Hx Dementia: Yes - HEENT Hx HEENT Problems: Yes Hx Cataracts: Yes - RENAL Hx Chronic Kidney Disease: No - ENDOCRINE/METABOLIC Hx Endocrine Disorders: Yes Hx Diabetes Mellitus Type 2: Yes - HEMATOLOGICAL/ONCOLOGICAL Hx Blood Disorders: No - INTEGUMENTARY Hx Dermatological Problems: No - MUSCULOSKELETAL/RHEUMATOLOGICAL Hx Musculoskeletal Disorders: Yes Hx Falls: Yes - GASTROINTESTINAL Hx Gastrointestinal Disorders: Yes Other/Comment: dysphagia - GENITOURINARY/GYNECOLOGICAL Hx Genitourinary Disorders: No - PSYCHIATRIC Hx Substance Use: No - SURGICAL HISTORY Hx Surgeries: Yes Other/Comment: 'SHUNT' - ANESTHESIA Hx Anesthesia Reactions: No Meds Allergies/Adverse Reactions: Allergies Allergy/AdvReac Type Severity Reaction Status Date / Time lisinopril Allergy Verified 12/01/17 10:28 Penicillins Allergy Verified 12/01/17 10:20 TOMATO Allergy Uncoded 01/26/17 12:02 - Medications Medications: Current Medications Acetaminophen (Tylenol 650mg/20.3ml Solution Ud) 650 mg PO Q6 PRN PRN Reason: fever Last Admin: 12/07/17 21:00 Dose: 650 mg Aspirin (Aspirin Chewable) 81 mg PO DAILY [facility] Last Admin: 12/08/17 09:55 Dose: 81 mg Bisacodyl (Dulcolax) 10 mg [place] Q24H PRN PRN Reason: Constipation Diltiazem HCl (Cardizem) 60 mg PO Q6 [facility] Last Admin: 12/08/17 11:53 Dose: 60 mg Famotidine (Pepcid) 20 mg IVP DAILY [facility] Last Admin: 12/08/17 09:55 Dose: 20 mg Heparin Sodium (Porcine) (Heparin) 5,000 units SC Q8 [facility] Last Admin: 12/08/17 06:21 Dose: 5,000 units Doxycycline Hyclate 100 mg/ (Sodium Chloride) 100 mls @ 100 mls/hr IVPB Q12H [facility] Last Admin: 12/08/17 11:57 Dose: 100 mls/hr Linezolid (Zyvox 600mg/300ml D5w) 600 mg in 300 mls @ 200 mls/hr IVPB Q12 [facility] Last Admin: 12/08/17 09:55 Dose: 200 mls/hr Aztreonam 1 gm/ Sodium (Chloride) 100 mls @ 100 mls/hr IVPB Q12H [facility] Last Admin: 12/08/17 12:00 Dose: 100 mls/hr Insulin Aspart (Novolog) 0 unit SC Q6 [facility] PRN Reason: Protocol Last Admin: 12/08/17 11:49 Dose: 6 unit Latanoprost (Xalatan Opht) 0 ml OD HS [facility] Last Admin: 12/07/17 22:50 Dose: 2.5 ml Metoprolol Tartrate (Lopressor) 25 mg PO BID [facility] Sodium Bicarbonate (Sodium Bicarbonate Tab) 650 mg PO BID [facility] Last Admin: 12/08/17 09:54 Dose: 650 mg Sucralfate (Carafate Oral Susp) 1 gm PO TID [facility] Last Admin: 12/08/17 14:01 Dose: 1 gm Physical Exam - Constitutional Appears: No Acute Distress, Chronically Ill - Head Exam Head Exam: ATRAUMATIC, NORMAL INSPECTION, NORMOCEPHALIC - Eye Exam Eye Exam: EOMI, Normal appearance, PERRL Pupil Exam: NORMAL ACCOMODATION, PERRL - ENT Exam ENT Exam: Mucous Membranes Dry - Neck Exam Neck exam: Positive for: Normal Inspection - Respiratory Exam Respiratory Exam: Decreased Breath Sounds, NORMAL BREATHING PATTERN Additional comments: On mechanical ventilation, intubated - Cardiovascular Exam Cardiovascular Exam: Tachycardia, REGULAR RHYTHM - GI/Abdominal Exam GI & Abdominal Exam: Normal Bowel Sounds, Soft Additional comments: PEG in place - Rectal Exam Rectal Exam: Deferred - Exam Additional comments: Morgan catheter - Extremities Exam Extremities exam: Positive for: pedal edema - Back Exam Back exam: NORMAL INSPECTION - Neurological Exam Neurological exam: Altered, Motor Sensory Deficit - Psychiatric Exam Psychiatric exam: Flat Affect - Skin Skin Exam: Pallor Additional comments: Hemoglobin 7.1 Results - Vital Signs Recent Vital Signs: Last Vital Signs Temp 98.4 F 12/08/17 16:00 Pulse 90 12/08/17 16:08 Resp 21 12/08/17 16:08 BP 104/49 L 12/08/17 16:08 Pulse Ox 98 12/08/17 16:08 - Labs Result Diagrams: 12/08/17 10:55 12/08/17 06:30 Labs: Laboratory Results - last 24 hr 12/07/17 12/08/17 12/08/17 17:52 00:10 05:14 WBC RBC Hgb Hct MCV MCH MCHC RDW Plt Count MPV Neut % (Auto) Lymph % (Auto) [place] % (Auto) Eos % (Auto) Baso % (Auto) Neut # (Auto) Lymph # (Auto) [place] # (Auto) Eos # (Auto) Baso # (Auto) Neutrophils % (Manual) Band Neutrophils % Lymphocytes % (Manual) Monocytes % (Manual) Myelocytes % Platelet Estimate Large Platelets Hypochromasia (manual) Poikilocytosis (manual Basophilic Stippling Anisocytosis (manual) Ovalocytes Puncture Site Lr pCO2 34 L pO2 137 H HCO3 25.3 ABG pH 7.46 H ABG Total CO2 25.2 ABG O2 Saturation 99.3 H ABG Base Excess 0.5 ABG Hemoglobin 7.7 L ABG Carboxyhemoglobin 1.2 POC ABG HHb (Measured) 0.7 ABG Methemoglobin 1.3 Parviz Test Pos A-a O2 Difference 177.0 Respiratory Index 1.3 Hgb O2 Saturation 96.9 Vent Mode Prvc Mechanical Rate 16 FiO2 50.0 Tidal Volume 450 PEEP 5 Sodium Potassium Chloride Carbon Dioxide Anion Gap BUN Creatinine Est GFR ( Amer) Est GFR (Non-Af Amer) POC Glucose (mg/dL) 241 H 220 H Random Glucose Calcium Phosphorus Magnesium Total Bilirubin AST ALT Alkaline Phosphatase Total Protein Albumin Globulin Albumin/Globulin Ratio Blood Type Antibody Screen 12/08/17 12/08/17 12/08/17 06:25 06:30 06:32 WBC 15.9 H RBC 2.76 L Hgb 7.2 L Hct 22.3 L MCV 80.7 MCH 26.1 L MCHC 32.3 L RDW 16.5 H Plt Count 210 MPV 10.9 Neut % (Auto) 90.5 H Lymph % (Auto) 4.7 L [place] % (Auto) 4.7 Eos % (Auto) 0.0 Baso % (Auto) 0.1 Neut # (Auto) 14.4 H Lymph # (Auto) 0.8 L [place] # (Auto) 0.7 Eos # (Auto) 0.0 Baso # (Auto) 0.0 Neutrophils % (Manual) 93 H Band Neutrophils % 1 Lymphocytes % (Manual) 2 L Monocytes % (Manual) 3 Myelocytes % 1 H Platelet Estimate Normal Large Platelets Present Hypochromasia (manual) Slight Poikilocytosis (manual Slight Basophilic Stippling Slight Anisocytosis (manual) Slight Ovalocytes Slight Puncture Site pCO2 pO2 HCO3 ABG pH ABG Total CO2 ABG O2 Saturation ABG Base Excess ABG Hemoglobin ABG Carboxyhemoglobin POC ABG HHb (Measured) ABG Methemoglobin Parviz Test A-a O2 Difference Respiratory Index Hgb O2 Saturation Vent Mode Mechanical Rate FiO2 Tidal Volume PEEP Sodium 145 Potassium 2.9 L Chloride 110 H Carbon Dioxide 23 Anion Gap 15 BUN 97 H Creatinine 2.5 H Est GFR ( Amer) 30 Est GFR (Non-Af Amer) 24 POC Glucose (mg/dL) 305 H Random Glucose 242 H Calcium 7.3 L Phosphorus 4.5 Magnesium 1.8 Total Bilirubin 0.6 AST 21 ALT 50 Alkaline Phosphatase 65 Total Protein 4.3 L Albumin 2.1 L Globulin 2.2 Albumin/Globulin Ratio 0.9 L Blood Type Antibody Screen 12/08/17 12/08/17 12/08/17 10:55 10:59 11:37 WBC 18.7 H RBC 2.70 L Hgb 7.1 L Hct 21.8 L MCV 81.0 MCH 26.3 L MCHC 32.5 L RDW 16.2 H Plt Count 219 MPV 10.6 Neut % (Auto) Lymph % (Auto) [place] % (Auto) Eos % (Auto) Baso % (Auto) Neut # (Auto) Lymph # (Auto) [place] # (Auto) Eos # (Auto) Baso # (Auto) Neutrophils % (Manual) Band Neutrophils % Lymphocytes % (Manual) Monocytes % (Manual) Myelocytes % Platelet Estimate Large Platelets Hypochromasia (manual) Poikilocytosis (manual Basophilic Stippling Anisocytosis (manual) Ovalocytes Puncture Site pCO2 pO2 HCO3 ABG pH ABG Total CO2 ABG O2 Saturation ABG Base Excess ABG Hemoglobin ABG Carboxyhemoglobin POC ABG HHb (Measured) ABG Methemoglobin Parviz Test A-a O2 Difference Respiratory Index Hgb O2 Saturation Vent Mode Mechanical Rate FiO2 Tidal Volume PEEP Sodium Potassium Chloride Carbon Dioxide Anion Gap BUN Creatinine Est GFR ( Amer) Est GFR (Non-Af Amer) POC Glucose (mg/dL) 265 H Random Glucose Calcium Phosphorus Magnesium Total Bilirubin AST ALT Alkaline Phosphatase Total Protein Albumin Globulin Albumin/Globulin Ratio Blood Type O POSITIVE Antibody Screen Negative Assessment & Plan - Assessment and Plan (Free Text) Assessment: Palliative consult Code status full code, there is no advanced directive on the chart, BPS 10%'s I review the medical records, all diagnostic studies, examine patient in the bed , and discussed goals of care with his . Patient is intubated, on mechanical ventilation support, unresponsive to verbal and tactile stimuli. Breath sounds are diminished. Pulse oximetry 98%'s. Patient is not tolerating weaning well. PEG tube in place, functioning. There is a mild pedal edema. Decreased range of motion to upper and lower extremities. White blood count 18.4, hemoglobin 7.1, potassium 2.9, BUN 27, Ativan 2.5, albumin 2.1 Blood pressure 104/49, respirations 21, no fever Goals of care discussed with patient's Ms. Car Dubois. I reviewed patient's clinical presentation and related his symptoms to the main diagnosis. Ms. Yoon was just talking to Federica Yordy from the surgery explained to her the need for the AVC filter given patient's diagnosis of bilateral DVTs. I gave more information about the purpose of the AVC filter. Ms. Yoon admitted being concerned about her 's condition. During the family meeting Ms. Yoon was referring mostly to the patient's condition of 10 years ago. She admitted not being able to use Internet and she was using the dictionary to educate herself on the medical times. Ms.: Asked what the palliative care stand for and what was tracheostomy. I explained those terms using terms that she "understands. Ms. Yoon expressed her desire for the medical team to use all measures to promote her 's life. Code status discussed. Ms. Yoon was very specific that she would like medical team to support her 's life using all aggressive measures regardless of quality of life. She is aware that the patient didn't tolerate weaning well and the next step will be tracheostomy in order to keep the patient in the terminal press operator mechanical ventilation assistance. I explained to her the low hemoglobin level in the need for the patient to be stable for mentioned procedures. Impression * This is very seek man, with multiple comorbidities, unable to advocate for himself * Acute respiratory distress * Difficult weaning * Acute blood loss * At risk for malnutrition and dehydration * At risk for pressure sore * Patient's has a poor input in patient's condition * Modest Electrolytes Imbalance Suggestions * Continually mechanical ventilation support, weaning trial as tolerated * Consider tracheostomy when medically stable * Transfuse blood * Artificial nutrition and hydration * Turn and position every 2 hours, air mattress * Reinforce teaching about patient's condition to the * Correct potassium and albumin * Palliative care will continue to follow up with this patient and to support his in decision making process. Advanced care discussion 50 minutes.
[2017-12-08] MEDS ORDERED: Albumin Human 25% (12.5 gm/50 ml) IV ONE (16:58)
[2017-12-08] MEDS ORDERED: Potassium Chloride 20 mEq/15 ml LIQ UD PO ONE (17:12)
[2017-12-08] MEDS ORDERED: Potassium Chl 40 mEq in D5-1/2 1,000 ML IV SCH (17:15)
--- NOTE | 2017-12-08 17:34 | CP.PCM.CON ---
History of Present Illness - History of Present Illness History of Present Illness: Patient is 87 years old man admitted from the alf with lethargy, sepsis. Upon admission to ED patient was intubated for respiratory support. The Doppler of lower extremities was significant for bilateral DVT. 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 The CAT scan of the chest was significant for bilateral pleural effusion and anasarca. White count was elevated on admission. IV antibiotics initiated. Renal consult called for nonoliguric SIMON. Pt with normal creatinine on admission 12/02. Noted need for pressors. Noted need for contrast in CT. Past Patient History - Past Medical History & Family History Past Medical History?: Yes - Past Social History Smoking Status: Never Smoked - CARDIAC Hx Atrial Fibrillation: Yes Hx Hypertension: Yes - PULMONARY Hx Respiratory Disorders: No - NEUROLOGICAL Hx Dementia: Yes - HEENT Hx HEENT Problems: Yes Hx Cataracts: Yes - RENAL Hx Chronic Kidney Disease: No - ENDOCRINE/METABOLIC Hx Endocrine Disorders: Yes Hx Diabetes Mellitus Type 2: Yes - HEMATOLOGICAL/ONCOLOGICAL Hx Blood Disorders: No - INTEGUMENTARY Hx Dermatological Problems: No - MUSCULOSKELETAL/RHEUMATOLOGICAL Hx Musculoskeletal Disorders: Yes Hx Falls: Yes - GASTROINTESTINAL Hx Gastrointestinal Disorders: Yes Other/Comment: dysphagia - GENITOURINARY/GYNECOLOGICAL Hx Genitourinary Disorders: No - PSYCHIATRIC Hx Substance Use: No - SURGICAL HISTORY Hx Surgeries: Yes Other/Comment: 'SHUNT' - ANESTHESIA Hx Anesthesia Reactions: No Meds Allergies/Adverse Reactions: Allergies Allergy/AdvReac Type Severity Reaction Status Date / Time lisinopril Allergy Verified 12/01/17 10:28 Penicillins Allergy Verified 12/01/17 10:20 TOMATO Allergy Uncoded 01/26/17 12:02 - Medications Medications: Current Medications Acetaminophen (Tylenol 650mg/20.3ml Solution Ud) 650 mg PO Q6 PRN PRN Reason: fever Last Admin: 12/07/17 21:00 Dose: 650 mg Aspirin (Aspirin Chewable) 81 mg PO DAILY [facility] Last Admin: 12/08/17 09:55 Dose: 81 mg Bisacodyl (Dulcolax) 10 mg [place] Q24H PRN PRN Reason: Constipation Diltiazem HCl (Cardizem) 60 mg PO Q6 [facility] Last Admin: 12/08/17 11:53 Dose: 60 mg Famotidine (Pepcid) 20 mg IVP DAILY [facility] Last Admin: 12/08/17 09:55 Dose: 20 mg Heparin Sodium (Porcine) (Heparin) 5,000 units SC Q8 [facility] Last Admin: 12/08/17 06:21 Dose: 5,000 units Doxycycline Hyclate 100 mg/ (Sodium Chloride) 100 mls @ 100 mls/hr IVPB Q12H [facility] Last Admin: 12/08/17 11:57 Dose: 100 mls/hr Linezolid (Zyvox 600mg/300ml D5w) 600 mg in 300 mls @ 200 mls/hr IVPB Q12 [facility] Last Admin: 12/08/17 09:55 Dose: 200 mls/hr Aztreonam 1 gm/ Sodium (Chloride) 100 mls @ 100 mls/hr IVPB Q12H [facility] Last Admin: 12/08/17 12:00 Dose: 100 mls/hr Potassium Chloride/Dextrose/Sod Cl (Potassium Chl 40 Meq In D5-1/2ns) 1,000 mls @ 100 mls/hr IV .Q10H [facility] Stop: 12/09/17 03:14 Insulin Aspart (Novolog) 0 unit SC Q6 [facility] PRN Reason: Protocol Last Admin: 12/08/17 11:49 Dose: 6 unit Insulin Detemir (Levemir) [address] [facility] Latanoprost (Xalatan Opht) 0 ml OD HS [facility] Last Admin: 12/07/17 22:50 Dose: 2.5 ml Metoprolol Tartrate (Lopressor) 25 mg PO BID [facility] Sodium Bicarbonate (Sodium Bicarbonate Tab) 650 mg PO BID [facility] Last Admin: 12/08/17 09:54 Dose: 650 mg Sucralfate (Carafate Oral Susp) 1 gm PO TID [facility] Last Admin: 12/08/17 14:01 Dose: 1 gm Physical Exam - Constitutional Appears: Chronically Ill Additional comments: intubated - Head Exam Head Exam: ATRAUMATIC - Neck Exam Neck exam: Positive for: Full Rom. Negative for: Lymphadenopathy - Respiratory Exam Respiratory Exam: Decreased Breath Sounds. absent: Rhonchi - Cardiovascular Exam Cardiovascular Exam: Tachycardia, Irregular Rhythm - GI/Abdominal Exam GI & Abdominal Exam: Distended. absent: Guarding - Extremities Exam Extremities exam: Positive for: pedal edema Results - Vital Signs Recent Vital Signs: Last Vital Signs Temp 98.4 F 12/08/17 16:00 Pulse 90 12/08/17 16:08 Resp 21 12/08/17 16:08 BP 104/49 L 12/08/17 16:08 Pulse Ox 98 12/08/17 16:08 - Labs Result Diagrams: 12/08/17 10:55 12/08/17 06:30 Labs: Laboratory Results - last 24 hr 12/07/17 12/08/17 12/08/17 17:52 00:10 05:14 WBC RBC Hgb Hct MCV MCH MCHC RDW Plt Count MPV Neut % (Auto) Lymph % (Auto) [place] % (Auto) Eos % (Auto) Baso % (Auto) Neut # (Auto) Lymph # (Auto) [place] # (Auto) Eos # (Auto) Baso # (Auto) Neutrophils % (Manual) Band Neutrophils % Lymphocytes % (Manual) Monocytes % (Manual) Myelocytes % Platelet Estimate Large Platelets Hypochromasia (manual) Poikilocytosis (manual Basophilic Stippling Anisocytosis (manual) Ovalocytes Puncture Site Lr pCO2 34 L pO2 137 H HCO3 25.3 ABG pH 7.46 H ABG Total CO2 25.2 ABG O2 Saturation 99.3 H ABG Base Excess 0.5 ABG Hemoglobin 7.7 L ABG Carboxyhemoglobin 1.2 POC ABG HHb (Measured) 0.7 ABG Methemoglobin 1.3 Parviz Test Pos A-a O2 Difference 177.0 Respiratory Index 1.3 Hgb O2 Saturation 96.9 Vent Mode Prvc Mechanical Rate 16 FiO2 50.0 Tidal Volume 450 PEEP 5 Sodium Potassium Chloride Carbon Dioxide Anion Gap BUN Creatinine Est GFR ( Amer) Est GFR (Non-Af Amer) POC Glucose (mg/dL) 241 H 220 H Random Glucose Calcium Phosphorus Magnesium Total Bilirubin AST ALT Alkaline Phosphatase Total Protein Albumin Globulin Albumin/Globulin Ratio Blood Type Antibody Screen 12/08/17 12/08/17 12/08/17 06:25 06:30 06:32 WBC 15.9 H RBC 2.76 L Hgb 7.2 L Hct 22.3 L MCV 80.7 MCH 26.1 L MCHC 32.3 L RDW 16.5 H Plt Count 210 MPV 10.9 Neut % (Auto) 90.5 H Lymph % (Auto) 4.7 L [place] % (Auto) 4.7 Eos % (Auto) 0.0 Baso % (Auto) 0.1 Neut # (Auto) 14.4 H Lymph # (Auto) 0.8 L [place] # (Auto) 0.7 Eos # (Auto) 0.0 Baso # (Auto) 0.0 Neutrophils % (Manual) 93 H Band Neutrophils % 1 Lymphocytes % (Manual) 2 L Monocytes % (Manual) 3 Myelocytes % 1 H Platelet Estimate Normal Large Platelets Present Hypochromasia (manual) Slight Poikilocytosis (manual Slight Basophilic Stippling Slight Anisocytosis (manual) Slight Ovalocytes Slight Puncture Site pCO2 pO2 HCO3 ABG pH ABG Total CO2 ABG O2 Saturation ABG Base Excess ABG Hemoglobin ABG Carboxyhemoglobin POC ABG HHb (Measured) ABG Methemoglobin Parviz Test A-a O2 Difference Respiratory Index Hgb O2 Saturation Vent Mode Mechanical Rate FiO2 Tidal Volume PEEP Sodium 145 Potassium 2.9 L Chloride 110 H Carbon Dioxide 23 Anion Gap 15 BUN 97 H Creatinine 2.5 H Est GFR ( Amer) 30 Est GFR (Non-Af Amer) 24 POC Glucose (mg/dL) 305 H Random Glucose 242 H Calcium 7.3 L Phosphorus 4.5 Magnesium 1.8 Total Bilirubin 0.6 AST 21 ALT 50 Alkaline Phosphatase 65 Total Protein 4.3 L Albumin 2.1 L Globulin 2.2 Albumin/Globulin Ratio 0.9 L Blood Type Antibody Screen 12/08/17 12/08/17 12/08/17 10:55 10:59 11:37 WBC 18.7 H RBC 2.70 L Hgb 7.1 L Hct 21.8 L MCV 81.0 MCH 26.3 L MCHC 32.5 L RDW 16.2 H Plt Count 219 MPV 10.6 Neut % (Auto) Lymph % (Auto) [place] % (Auto) Eos % (Auto) Baso % (Auto) Neut # (Auto) Lymph # (Auto) [place] # (Auto) Eos # (Auto) Baso # (Auto) Neutrophils % (Manual) Band Neutrophils % Lymphocytes % (Manual) Monocytes % (Manual) Myelocytes % Platelet Estimate Large Platelets Hypochromasia (manual) Poikilocytosis (manual Basophilic Stippling Anisocytosis (manual) Ovalocytes Puncture Site pCO2 pO2 HCO3 ABG pH ABG Total CO2 ABG O2 Saturation ABG Base Excess ABG Hemoglobin ABG Carboxyhemoglobin POC ABG HHb (Measured) ABG Methemoglobin Parviz Test A-a O2 Difference Respiratory Index Hgb O2 Saturation Vent Mode Mechanical Rate FiO2 Tidal Volume PEEP Sodium Potassium Chloride Carbon Dioxide Anion Gap BUN Creatinine Est GFR ( Amer) Est GFR (Non-Af Amer) POC Glucose (mg/dL) 265 H Random Glucose Calcium Phosphorus Magnesium Total Bilirubin AST ALT Alkaline Phosphatase Total Protein Albumin Globulin Albumin/Globulin Ratio Blood Type O POSITIVE Antibody Screen Negative Assessment & Plan - Assessment and Plan (Free Text) Assessment: nonoliguric simon due to hypotension, hypoperfusion, contrast, sepsis vdrf afib bilateral dvt anasarca lasix and albumin check urine na monitor for nephrotoxic insults will monitor 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
--- NOTE | 2017-12-08 18:05 | CP.PCM.PN ---
Subjective - Date & Time of Evaluation Date of Evaluation: 12/08/17 Time of Evaluation: 18:05 Objective - Vital Signs/Intake and Output Vital Signs (last 24 hours): Temp Pulse Resp BP Pulse Ox 98.4 F 90 21 148/75 98 12/08/17 16:00 12/08/17 16:08 12/08/17 16:08 12/08/17 17:47 12/08/17 16:08 Intake and Output: 12/08/17 12/08/17 06:59 18:59 Intake Total 670 965 Output Total 898 763 Balance -228 202 - Medications Medications: Current Medications Acetaminophen (Tylenol 650mg/20.3ml Solution Ud) 650 mg PO Q6 PRN PRN Reason: fever Last Admin: 12/07/17 21:00 Dose: 650 mg Aspirin (Aspirin Chewable) 81 mg PO DAILY [facility] Last Admin: 12/08/17 09:55 Dose: 81 mg Bisacodyl (Dulcolax) 10 mg SC Q24H PRN PRN Reason: Constipation Diltiazem HCl (Cardizem) 60 mg PO Q6 [facility] Last Admin: 12/08/17 17:47 Dose: 60 mg Famotidine (Pepcid) 20 mg IVP DAILY [facility] Last Admin: 12/08/17 09:55 Dose: 20 mg Heparin Sodium (Porcine) (Heparin) 5,000 units SC Q8 [facility] Last Admin: 12/08/17 06:21 Dose: 5,000 units Doxycycline Hyclate 100 mg/ (Sodium Chloride) 100 mls @ 100 mls/hr IVPB Q12H [facility] Last Admin: 12/08/17 11:57 Dose: 100 mls/hr Linezolid (Zyvox 600mg/300ml D5w) 600 mg in 300 mls @ 200 mls/hr IVPB Q12 [facility] Last Admin: 12/08/17 09:55 Dose: 200 mls/hr Aztreonam 1 gm/ Sodium (Chloride) 100 mls @ 100 mls/hr IVPB Q12H [facility] Last Admin: 12/08/17 12:00 Dose: 100 mls/hr Potassium Chloride/Dextrose/Sod Cl (Potassium Chl 40 Meq In D5-1/2ns) 1,000 mls @ 100 mls/hr IV .Q10H [facility] Stop: 12/09/17 03:14 Insulin Aspart (Novolog) 0 unit SC Q6 [facility] PRN Reason: Protocol Last Admin: 12/08/17 17:54 Dose: 2 unit Insulin Detemir (Levemir) 10 unit SC HS [facility] Latanoprost (Xalatan Opht) 0 ml OD HS [facility] Last Admin: 12/07/17 22:50 Dose: 2.5 ml Metoprolol Tartrate (Lopressor) 25 mg PO BID [facility] Last Admin: 12/08/17 17:47 Dose: 25 mg Sodium Bicarbonate (Sodium Bicarbonate Tab) 650 mg PO BID [facility] Last Admin: 12/08/17 17:48 Dose: 650 mg Sucralfate (Carafate Oral Susp) 1 gm PO TID [facility] Last Admin: 12/08/17 17:48 Dose: 1 gm - Labs Labs: 12/08/17 10:55 12/08/17 06:30 PT 12.9 SECONDS (9.7-12.2) H 12/01/17 13:39 INR 1.15 (0.92-1.08) H 12/01/17 13:39 APTT 73 SECONDS (21-34) H D 12/04/17 06:38
--- NOTE | 2017-12-08 18:54 | CP.PCM.HP ---
Past Patient History - Past Medical History & Family History Past Medical History?: Yes - Past Social History Smoking Status: Never Smoked - CARDIAC Hx Atrial Fibrillation: Yes Hx Hypertension: Yes - PULMONARY Hx Respiratory Disorders: No - NEUROLOGICAL Hx Dementia: Yes - HEENT Hx HEENT Problems: Yes Hx Cataracts: Yes - RENAL Hx Chronic Kidney Disease: No - ENDOCRINE/METABOLIC Hx Endocrine Disorders: Yes Hx Diabetes Mellitus Type 2: Yes - HEMATOLOGICAL/ONCOLOGICAL Hx Blood Disorders: No - INTEGUMENTARY Hx Dermatological Problems: No - MUSCULOSKELETAL/RHEUMATOLOGICAL Hx Musculoskeletal Disorders: Yes Hx Falls: Yes - GASTROINTESTINAL Hx Gastrointestinal Disorders: Yes Other/Comment: dysphagia - GENITOURINARY/GYNECOLOGICAL Hx Genitourinary Disorders: No - PSYCHIATRIC Hx Substance Use: No - SURGICAL HISTORY Hx Surgeries: Yes Other/Comment: 'SHUNT' - ANESTHESIA Hx Anesthesia Reactions: No Meds Allergies/Adverse Reactions: Allergies Allergy/AdvReac Type Severity Reaction Status Date / Time lisinopril Allergy Verified 12/01/17 10:28 Penicillins Allergy Verified 12/01/17 10:20 TOMATO Allergy Uncoded 01/26/17 12:02 Physical Exam - Constitutional Appears: Well - Head Exam Head Exam: ATRAUMATIC, NORMAL INSPECTION, NORMOCEPHALIC - Eye Exam Eye Exam: EOMI, Normal appearance, PERRL Pupil Exam: NORMAL ACCOMODATION, PERRL - ENT Exam ENT Exam: Mucous Membranes Moist, Normal Exam - Neck Exam Neck exam: Positive for: Normal Inspection - Respiratory Exam Respiratory Exam: Decreased Breath Sounds - Cardiovascular Exam Cardiovascular Exam: REGULAR RHYTHM, +S1, +S2 - GI/Abdominal Exam GI & Abdominal Exam: Diminished Bowel Sounds, Soft - Rectal Exam Rectal Exam: Deferred Results - Vital Signs Recent Vital Signs: Last Vital Signs Temp 98.4 F 12/08/17 16:00 Pulse 134 H 12/08/17 18:08 Resp 19 12/08/17 18:08 BP 130/73 12/08/17 18:08 Pulse Ox 98 12/08/17 18:08 - Labs Result Diagrams: 12/08/17 10:55 12/08/17 06:30 Labs: Laboratory Results - last 24 hr 12/08/17 12/08/17 12/08/17 00:10 05:14 06:25 WBC RBC Hgb Hct MCV MCH MCHC RDW Plt Count MPV Neut % (Auto) Lymph % (Auto) Lamb % (Auto) Eos % (Auto) Baso % (Auto) Neut # (Auto) Lymph # (Auto) Lamb # (Auto) Eos # (Auto) Baso # (Auto) Neutrophils % (Manual) Band Neutrophils % Lymphocytes % (Manual) Monocytes % (Manual) Myelocytes % Platelet Estimate Large Platelets Hypochromasia (manual) Poikilocytosis (manual Basophilic Stippling Anisocytosis (manual) Ovalocytes Puncture Site Lr pCO2 34 L pO2 137 H HCO3 25.3 ABG pH 7.46 H ABG Total CO2 25.2 ABG O2 Saturation 99.3 H ABG Base Excess 0.5 ABG Hemoglobin 7.7 L ABG Carboxyhemoglobin 1.2 POC ABG HHb (Measured) 0.7 ABG Methemoglobin 1.3 Parviz Test Pos A-a O2 Difference 177.0 Respiratory Index 1.3 Hgb O2 Saturation 96.9 Vent Mode Prvc Mechanical Rate 16 FiO2 50.0 Tidal Volume 450 PEEP 5 Sodium Potassium Chloride Carbon Dioxide Anion Gap BUN Creatinine Est GFR ( Amer) Est GFR (Non-Af Amer) POC Glucose (mg/dL) 220 H 305 H Random Glucose Calcium Phosphorus Magnesium Total Bilirubin AST ALT Alkaline Phosphatase Total Protein Albumin Globulin Albumin/Globulin Ratio Blood Type Antibody Screen 12/08/17 12/08/17 12/08/17 06:30 06:32 10:55 WBC 15.9 H 18.7 H RBC 2.76 L 2.70 L Hgb 7.2 L 7.1 L Hct 22.3 L 21.8 L MCV 80.7 81.0 MCH 26.1 L 26.3 L MCHC 32.3 L 32.5 L RDW 16.5 H 16.2 H Plt Count 210 219 MPV 10.9 10.6 Neut % (Auto) 90.5 H Lymph % (Auto) 4.7 L Lamb % (Auto) 4.7 Eos % (Auto) 0.0 Baso % (Auto) 0.1 Neut # (Auto) 14.4 H Lymph # (Auto) 0.8 L Lamb # (Auto) 0.7 Eos # (Auto) 0.0 Baso # (Auto) 0.0 Neutrophils % (Manual) 93 H Band Neutrophils % 1 Lymphocytes % (Manual) 2 L Monocytes % (Manual) 3 Myelocytes % 1 H Platelet Estimate Normal Large Platelets Present Hypochromasia (manual) Slight Poikilocytosis (manual Slight Basophilic Stippling Slight Anisocytosis (manual) Slight Ovalocytes Slight Puncture Site pCO2 pO2 HCO3 ABG pH ABG Total CO2 ABG O2 Saturation ABG Base Excess ABG Hemoglobin ABG Carboxyhemoglobin POC ABG HHb (Measured) ABG Methemoglobin Parviz Test A-a O2 Difference Respiratory Index Hgb O2 Saturation Vent Mode Mechanical Rate FiO2 Tidal Volume PEEP Sodium 145 Potassium 2.9 L Chloride 110 H Carbon Dioxide 23 Anion Gap 15 BUN 97 H Creatinine 2.5 H Est GFR ( Amer) 30 Est GFR (Non-Af Amer) 24 POC Glucose (mg/dL) Random Glucose 242 H Calcium 7.3 L Phosphorus 4.5 Magnesium 1.8 Total Bilirubin 0.6 AST 21 ALT 50 Alkaline Phosphatase 65 Total Protein 4.3 L Albumin 2.1 L Globulin 2.2 Albumin/Globulin Ratio 0.9 L Blood Type Antibody Screen 12/08/17 12/08/17 12/08/17 10:59 11:37 17:45 WBC RBC Hgb Hct MCV MCH MCHC RDW Plt Count MPV Neut % (Auto) Lymph % (Auto) Lamb % (Auto) Eos % (Auto) Baso % (Auto) Neut # (Auto) Lymph # (Auto) Lamb # (Auto) Eos # (Auto) Baso # (Auto) Neutrophils % (Manual) Band Neutrophils % Lymphocytes % (Manual) Monocytes % (Manual) Myelocytes % Platelet Estimate Large Platelets Hypochromasia (manual) Poikilocytosis (manual Basophilic Stippling Anisocytosis (manual) Ovalocytes Puncture Site pCO2 pO2 HCO3 ABG pH ABG Total CO2 ABG O2 Saturation ABG Base Excess ABG Hemoglobin ABG Carboxyhemoglobin POC ABG HHb (Measured) ABG Methemoglobin Parviz Test A-a O2 Difference Respiratory Index Hgb O2 Saturation Vent Mode Mechanical Rate FiO2 Tidal Volume PEEP Sodium Potassium Chloride Carbon Dioxide Anion Gap BUN Creatinine Est GFR ( Amer) Est GFR (Non-Af Amer) POC Glucose (mg/dL) 265 H 187 H Random Glucose Calcium Phosphorus Magnesium Total Bilirubin AST ALT Alkaline Phosphatase Total Protein Albumin Globulin Albumin/Globulin Ratio Blood Type O POSITIVE Antibody Screen Negative Assessment & Plan (1) Bandemia Status: Acute (2) Dyspnea Status: Acute (3) Fever Status: Acute (4) Lethargy Status: Acute (5) Sepsis Status: Acute (6) Contusion Status: Acute (7) Fall Status: Acute
--- NOTE | 2017-12-08 18:55 | CP.PCM.PN ---
Subjective - Date & Time of Evaluation Date of Evaluation: 12/08/17 Time of Evaluation: 13:00 - Subjective Subjective: clinically same Objective - Vital Signs/Intake and Output Vital Signs (last 24 hours): Temp Pulse Resp BP Pulse Ox 98.4 F 134 H 19 130/73 98 12/08/17 16:00 12/08/17 18:08 12/08/17 18:08 12/08/17 18:08 12/08/17 18:08 Intake and Output: 12/08/17 12/08/17 06:59 18:59 Intake Total 670 1015 Output Total 898 913 Balance -228 102 - Medications Medications: Current Medications Acetaminophen (Tylenol 650mg/20.3ml Solution Ud) 650 mg PO Q6 PRN PRN Reason: fever Last Admin: 12/07/17 21:00 Dose: 650 mg Aspirin (Aspirin Chewable) 81 mg PO DAILY [facility] Last Admin: 12/08/17 09:55 Dose: 81 mg Bisacodyl (Dulcolax) 10 mg [place] Q24H PRN PRN Reason: Constipation Diltiazem HCl (Cardizem) 60 mg PO Q6 [facility] Last Admin: 12/08/17 17:47 Dose: 60 mg Famotidine (Pepcid) 20 mg IVP DAILY [facility] Last Admin: 12/08/17 09:55 Dose: 20 mg Heparin Sodium (Porcine) (Heparin) 5,000 units SC Q8 [facility] Last Admin: 12/08/17 06:21 Dose: 5,000 units Doxycycline Hyclate 100 mg/ (Sodium Chloride) 100 mls @ 100 mls/hr IVPB Q12H [facility] Last Admin: 12/08/17 11:57 Dose: 100 mls/hr Linezolid (Zyvox 600mg/300ml D5w) 600 mg in 300 mls @ 200 mls/hr IVPB Q12 [facility] Last Admin: 12/08/17 09:55 Dose: 200 mls/hr Aztreonam 1 gm/ Sodium (Chloride) 100 mls @ 100 mls/hr IVPB Q12H [facility] Last Admin: 12/08/17 12:00 Dose: 100 mls/hr Potassium Chloride/Dextrose/Sod Cl (Potassium Chl 40 Meq In D5-1/2ns) 1,000 mls @ 100 mls/hr IV .Q10H [facility] Stop: 12/09/17 03:14 Last Admin: 12/08/17 18:47 Dose: 100 mls/hr Insulin Aspart (Novolog) 0 unit SC Q6 [facility] PRN Reason: Protocol Last Admin: 12/08/17 17:54 Dose: 2 unit Insulin Detemir (Levemir) 10 unit SC [facility] Latanoprost (Xalatan Opht) 0 ml OD HS [facility] Last Admin: 12/07/17 22:50 Dose: 2.5 ml Metoprolol Tartrate (Lopressor) 25 mg PO BID [facility] Last Admin: 12/08/17 17:47 Dose: 25 mg Sodium Bicarbonate (Sodium Bicarbonate Tab) 650 mg PO BID [facility] Last Admin: 12/08/17 17:48 Dose: 650 mg Sucralfate (Carafate Oral Susp) 1 gm PO TID [facility] Last Admin: 12/08/17 17:48 Dose: 1 gm - Labs Labs: 12/08/17 10:55 12/08/17 06:30 PT 12.9 SECONDS (9.7-12.2) H 12/01/17 13:39 INR 1.15 (0.92-1.08) H 12/01/17 13:39 APTT 73 SECONDS (21-34) H D 12/04/17 06:38 - Constitutional Appears: Well - Head Exam Head Exam: ATRAUMATIC, NORMAL INSPECTION, NORMOCEPHALIC - Eye Exam Eye Exam: EOMI, Normal appearance, PERRL Pupil Exam: NORMAL ACCOMODATION, PERRL - ENT Exam ENT Exam: Mucous Membranes Moist, Normal Exam - Neck Exam Neck Exam: Full ROM, Normal Inspection. absent: Lymphadenopathy - Respiratory Exam Respiratory Exam: Decreased Breath Sounds - Cardiovascular Exam Cardiovascular Exam: REGULAR RHYTHM, +S1, +S2 - GI/Abdominal Exam GI & Abdominal Exam: Soft, Diminished Bowel Sounds - Rectal Exam Rectal Exam: Deferred Assessment and Plan (1) Bandemia Status: Acute (2) Dyspnea Status: Acute (3) Fever Status: Acute (4) Lethargy Status: Acute (5) Sepsis Status: Acute (6) Contusion Status: Acute (7) Fall Status: Acute
[2017-12-08 19:13] LABS: SQUAMOUS EPITHIAL < 1 /hpf (0-5); URINE AMORPHOUS SEDIMENT OCC /ul (<OCC); URINE BACTERIA FEW (<OCC); URINE BILIRUBIN NEGATIVE (NEGATIVE); URINE BLOOD NEGATIVE (NEGATIVE); URINE CLARITY Hazy (Clear); URINE COLOR Yellow (YELLOW); URINE GLUCOSE (UA) NORMAL (Normal); URINE LEUKOCYTE ESTERASE NEG Leu/uL (Negative); URINE NITRATE NEGATIVE (NEGATIVE); URINE PROTEIN NEGATIVE (NEGATIVE); URINE UROBILINOGEN NORMAL mg/dL (0.2-1.0)
[2017-12-08 20:44] LABS: HEMOGLOBIN 7.5 g/dL (12.0-18.0); MEAN CELL VOLUME 82.3 fL (80.0-94.0); MEAN CORPUSCULAR HEMOGLOBIN 26.9 pg (27.0-31.0); MEAN CORPUSCULAR HGB CONC 32.7 g/dL (33.0-37.0); MEAN PLATELET VOLUME 9.6 fL (7.2-11.7); RBC 2.8 Mil/uL (4.40-5.90); RED CELL DISTRIBUTION WIDTH 15.7 % (11.5-14.5); WHITE BLOOD COUNT 15.7 K/uL (4.8-10.8)
[2017-12-08 21:00] LABS: CALCIUM 7.7 mg/dl (8.6-10.4)
[2017-12-08] MEDS: Insulin Detemir 100 units/ml Vial (Levemir) SC SCH (21:03)
[2017-12-08] MEDS: Latanoprost 2.5 ml Opht Soln OD SCH (21:05)
[2017-12-08] MEDS ORDERED: Insulin Detemir 100 units/ml Vial (Levemir) SC SCH (22:00)
[2017-12-09] MEDS: Aztreonam 1 GM in Sodium Chloride 0.9% 100 ML IVPB SCH ×2 (00:30→14:26)
[2017-12-09 01:45] LABS: INR 1.2; PROTHROMBIN TIME 13.1 SECONDS (9.7-12.2)
[2017-12-09 04:21] LABS: ARTERIAL BLOOD GAS HCO3 24.4 mmol/L (21-28); ARTERIAL BLOOD GAS HEMOGLOBIN 9.1 g/dL (11.7-17.4); ARTERIAL BLOOD GAS O2 SAT 99.3 % (95-98); ARTERIAL BLOOD GAS PCO2 31 mm/Hg (35-45); ARTERIAL BLOOD GAS PH 7.47 (7.35-7.45); ARTERIAL BLOOD GAS PO2 106 mm/Hg (80-100); ARTERIAL BLOOD GAS TCO2 23.6 mmol/L (22-28)
[2017-12-09] MEDS: (Novolog) Insulin Aspart, Recombinant 100 u/ml 10 ml vial SC SCH ×4 (06:14→18:37)
[2017-12-09 06:26] LABS: BASO % 0.1 % (0.0-2.0); HEMOGLOBIN 8.8 g/dL (12.0-18.0); LYMPH # 0.8 K/uL (1.0-4.3); LYMPH % 5.1 % (20.0-40.0); MEAN CELL VOLUME 80.9 fL (80.0-94.0); MEAN CORPUSCULAR HEMOGLOBIN 26.2 pg (27.0-31.0); MEAN CORPUSCULAR HGB CONC 32.4 g/dL (33.0-37.0); MONO # 0.5 K/uL (0.0-0.8); MONO % 3.3 % (0.0-10.0); NEUT # 15.2 K/uL (1.8-7.0); NEUT % 91.5 % (50.0-75.0); PLATELET COUNT 173 K/uL (130-400); RBC 3.35 Mil/uL (4.40-5.90); RED CELL DISTRIBUTION WIDTH 16.5 % (11.5-14.5); WHITE BLOOD COUNT 16.7 K/uL (4.8-10.8)
[2017-12-09 06:44] LABS: ALB/GLOB RATIO 1.1 (1.0-2.1); ALBUMIN 2.2 g/dL (3.5-5.0); CALCIUM 7.9 mg/dl (8.6-10.4); MAGNESIUM 1.9 mg/dL (1.6-2.3)
[2017-12-09 08:26] LABS: ANISOCYTOSIS SLIGHT; LYMPHOCYTE 6 % (20-40); MONOCYTE 3 % (0-10); NEUTROPHIL 91 % (50-75); PLATELET ESTIMATE NORMAL (NORMAL); TOTAL CELLS COUNTED 100
[2017-12-09 08:27] LABS: OVALOCYTES SLIGHT; POIKILOCYTOSIS SLIGHT; POLYCHROMIC SLIGHT
[2017-12-09 08:28] LABS: BURR CELLS SLIGHT
[2017-12-09] MEDS ORDERED: Iohexol 240 200 ML ONE (08:57)
[2017-12-09] MEDS ORDERED: Lidocaine 1% Inj (20ml) ONE (09:09)
[2017-12-09] MEDS ORDERED: HEPARIN-NS 5,000 UNITS/500 ML 5,000 UNIT/500 ML BAG IV ONE (09:11)
[2017-12-09] MEDS: Linezolid 600 mg in D5W 300 ml 600 MG/300 ML BAG IVPB SCH ×2 (09:12→21:00)
[2017-12-09] MEDS ORDERED: Sodium Chloride 0.9% 1,000 ML IV ONE (09:26)
--- NOTE | 2017-12-09 10:05 | CP.PCM.PN ---
Subjective - Date & Time of Evaluation Date of Evaluation: 12/09/17 Time of Evaluation: 10:05 - Subjective Subjective: Events reviewed. Critically ill. Now s/p Trach and IVCF > + RUE DVT, LE DVT Objective - Vital Signs/Intake and Output Vital Signs (last 24 hours): Temp Pulse Resp BP Pulse Ox 97.9 F 88 25 H 115/70 100 12/09/17 08:00 12/09/17 08:24 12/09/17 08:24 12/09/17 08:24 12/09/17 08:24 Intake and Output: 12/09/17 12/09/17 06:59 18:59 Intake Total 2520 200 Output Total 985 150 Balance 1535 50 - Medications Medications: Current Medications Acetaminophen (Tylenol 650mg/20.3ml Solution Ud) 650 mg PO Q6 PRN PRN Reason: fever Last Admin: 12/07/17 21:00 Dose: 650 mg Aspirin (Aspirin Chewable) 81 mg PO DAILY [facility] Last Admin: 12/08/17 09:55 Dose: 81 mg Bisacodyl (Dulcolax) 10 mg [place] Q24H PRN PRN Reason: Constipation Diltiazem HCl (Cardizem) 60 mg PO Q6 [facility] Last Admin: 12/09/17 05:14 Dose: 60 mg Famotidine (Pepcid) 20 mg IVP DAILY [facility] Last Admin: 12/09/17 09:11 Dose: 20 mg Heparin Sodium (Porcine) (Heparin) 5,000 units SC Q8 [facility] Last Admin: 12/08/17 06:21 Dose: 5,000 units Doxycycline Hyclate 100 mg/ (Sodium Chloride) 100 mls @ 100 mls/hr IVPB Q12H [facility] Last Admin: 12/08/17 23:30 Dose: 100 mls/hr Linezolid (Zyvox 600mg/300ml D5w) 600 mg in 300 mls @ 200 mls/hr IVPB Q12 [facility] Last Admin: 12/09/17 09:12 Dose: 200 mls/hr Aztreonam 1 gm/ Sodium (Chloride) 100 mls @ 100 mls/hr IVPB Q12H [facility] Last Admin: 12/09/17 00:30 Dose: 100 mls/hr Insulin Aspart (Novolog) 0 unit SC Q6 [facility] PRN Reason: Protocol Last Admin: 12/09/17 06:14 Dose: Not Given Insulin Detemir (Levemir) 10 unit SC [facility] Last Admin: 12/08/17 21:03 Dose: 10 unit Latanoprost (Xalatan Opht) 0 ml OD [facility] Last Admin: 12/08/17 21:05 Dose: 2.5 ml Metoprolol Tartrate (Lopressor) 25 mg PO BID [facility] Last Admin: 12/08/17 17:47 Dose: 25 mg Sodium Bicarbonate (Sodium Bicarbonate Tab) 650 mg PO BID [facility] Last Admin: 12/08/17 17:48 Dose: 650 mg Sucralfate (Carafate Oral Susp) 1 gm PO TID [facility] Last Admin: 12/08/17 17:48 Dose: 1 gm - Labs Labs: 12/09/17 06:21 12/09/17 06:22 PT 13.1 SECONDS (9.7-12.2) H 12/09/17 01:33 INR 1.2 12/09/17 01:33 APTT 32 SECONDS (21-34) 12/09/17 01:33 - Constitutional Appears: Chronically Ill - Respiratory Exam Respiratory Exam: Rhonchi - Cardiovascular Exam Cardiovascular Exam: Irregular Rhythm - Extremities Exam Extremities Exam: absent: Normal Inspection (2+ B/L LE edema, + RUE edema > LUE) Assessment and Plan - Assessment and Plan (Free Text) Assessment: 2D echo images viewed by me: Moderate LV dysfunction, technically limited study due tachycardia during the study. 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 --> Now s/p IVCF for LE DVT --> + RUE DVT --> Anemia and hx of GI bleed have prevented chronic anticoagulation
--- NOTE | 2017-12-09 10:47 | PCM.SURG1 ---
Surgeon's Initial Post Op Note - Surgeon's Notes Surgeon: Dr. 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
--- NOTE | 2017-12-09 11:00 | RAD ---
PROCEDURE: CHEST RADIOGRAPH, 1 VIEW HISTORY: Intubated/ICU Routine COMPARISON: Comparison is made with 12/08/2017 FINDINGS: LUNGS: Interval mild improvement in the right lung since the previous study. The ET tube is seen at appropriate position. PLEURA: Right pleural effusion is again noted. CARDIOVASCULAR: Normal. OSSEOUS STRUCTURES: No significant abnormalities. VISUALIZED UPPER ABDOMEN: Normal. OTHER FINDINGS: Right jugular central line is seen at appropriate position. IMPRESSION: Interval improvement in the right lung since the previous exam. Otherwise no significant interval change.
[2017-12-09] MEDS: Sucralfate 1 gm/10 ml Oral Susp UD PO SCH ×3 (11:04→18:34)
--- NOTE | 2017-12-09 12:45 | CP.PCM.PN ---
Subjective - Date & Time of Evaluation Date of Evaluation: 12/09/17 Time of Evaluation: 12:43 - Subjective Subjective: s/p tracheostomy and ivc filter unable to obtain ROS Objective - Vital Signs/Intake and Output Vital Signs (last 24 hours): Temp Pulse Resp BP Pulse Ox 97.9 F 88 25 H 121/54 L 100 12/09/17 08:00 12/09/17 08:24 12/09/17 08:24 12/09/17 11:04 12/09/17 08:24 Intake and Output: 12/09/17 12/09/17 06:59 18:59 Intake Total 2520 200 Output Total 985 150 Balance 1535 50 - Medications Medications: Current Medications Acetaminophen (Tylenol 650mg/20.3ml Solution Ud) 650 mg PO Q6 PRN PRN Reason: fever Last Admin: 12/07/17 21:00 Dose: 650 mg Aspirin (Aspirin Chewable) 81 mg PO DAILY [facility] Last Admin: 12/08/17 09:55 Dose: 81 mg Bisacodyl (Dulcolax) 10 mg [place] Q24H PRN PRN Reason: Constipation Diltiazem HCl (Cardizem) 60 mg PO Q6 [facility] Last Admin: 12/09/17 11:35 Dose: 60 mg Famotidine (Pepcid) 20 mg IVP DAILY [facility] Last Admin: 12/09/17 09:11 Dose: 20 mg Heparin Sodium (Porcine) (Heparin) 5,000 units SC Q8 [facility] Last Admin: 12/08/17 06:21 Dose: 5,000 units Doxycycline Hyclate 100 mg/ (Sodium Chloride) 100 mls @ 100 mls/hr IVPB Q12H [facility] Last Admin: 12/09/17 11:34 Dose: 100 mls/hr Linezolid (Zyvox 600mg/300ml D5w) 600 mg in 300 mls @ 200 mls/hr IVPB Q12 [facility] Last Admin: 12/09/17 09:12 Dose: 200 mls/hr Aztreonam 1 gm/ Sodium (Chloride) 100 mls @ 100 mls/hr IVPB Q12H [facility] Last Admin: 12/09/17 00:30 Dose: 100 mls/hr Insulin Aspart (Novolog) 0 unit SC Q6 [facility] PRN Reason: Protocol Last Admin: 02/17/18 06:14 Dose: Not Given Insulin Detemir (Levemir) 10 unit SC [facility] Last Admin: 12/08/17 21:03 Dose: 10 unit Latanoprost (Xalatan Opht) 0 ml OD [facility] Last Admin: 12/08/17 21:05 Dose: 2.5 ml Metoprolol Tartrate (Lopressor) 25 mg PO BID [facility] Last Admin: 12/09/17 11:04 Dose: 25 mg Sodium Bicarbonate (Sodium Bicarbonate Tab) 650 mg PO BID [facility] Last Admin: 12/09/17 11:04 Dose: 650 mg Sucralfate (Carafate Oral Susp) 1 gm PO TID [facility] Last Admin: 12/09/17 11:04 Dose: 1 gm - Labs Labs: 12/09/17 06:21 12/09/17 06:22 PT 13.1 SECONDS (9.7-12.2) H 12/09/17 01:33 INR 1.2 12/09/17 01:33 APTT 32 SECONDS (21-34) 12/09/17 01:33 - Constitutional Appears: Confused - Head Exam Head Exam: ATRAUMATIC - Eye Exam Additional comments: intubated - Neck Exam Neck Exam: Full ROM. absent: Lymphadenopathy - Respiratory Exam Respiratory Exam: Decreased Breath Sounds. absent: Accessory Muscle Use - Cardiovascular Exam Cardiovascular Exam: REGULAR RHYTHM. absent: Rubs - GI/Abdominal Exam GI & Abdominal Exam: Distended. 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
--- NOTE | 2017-12-09 15:18 | CP.CCUPN ---
CCU Subjective - Physician Review Subjective (Free Text): Patient was transfused 2 units Hb stable, off full dose anticoagulation, off pressors Critical Care Time Spent (in minutes): 35 CCU Objective - Vital Signs / Intake & Output Intake and Output (Last 8hrs): Intake & Output 12/09/17 12/09/17 12/09/17 06:59 14:59 22:59 Intake Total 1730 200 Output Total 695 150 Balance 1035 50 Intake: Intake, IV Amount 1000 200 Right Distal Port 800 200 Internal Jugular Right Medial Port 200 Internal Jugular Tube Feeding 30 0 Blood Product 650 Red Blood Cells Cpd As1 325 Lr Unit [id number] Other 50 Red Blood Cells Cpd As1 50 Lr Unit [id number] Output: Urine 695 150 Urethral (Morgan) 695 150 Other: # Bowel Movements 2 - Physical Exam Head: Positive for: Atraumatic, Normocephalic Pupils: Positive for: PERRL Neck: Positive for: Other ((+)trach) Respiratory/Chest: Positive for: Decreased Breath Sounds Cardiovascular: Positive for: Normal S1, S2, Tachycardic Abdomen: Positive for: Normal Bowel Sounds. Negative for: Peritoneal Signs Upper Extremity: Positive for: Normal Inspection Lower Extremity: Positive for: Normal Inspection Neurological: Negative for: GCS=15, CN II-XII Intact - Medications Active Medications: Active Medications Generic Name Dose Route Start Last Admin Trade Name Freq PRN Reason Stop Dose Admin Acetaminophen 650 mg 12/02/17 07:49 12/07/17 21:00 Tylenol 650mg/20.3ml Solution Ud PO 650 mg Q6 PRN Administration fever Aspirin 81 mg 12/02/17 10:00 12/08/17 09:55 Aspirin Chewable PO 81 mg DAILY ANA Administration Bisacodyl 10 mg 12/03/17 11:57 Dulcolax MO Q24H PRN Constipation Diltiazem HCl 60 mg 12/05/17 12:00 12/09/17 11:35 Cardizem PO 60 mg Q6 ANA Administration Famotidine 20 mg 12/07/17 12:30 12/09/17 09:11 Pepcid IVP 20 mg DAILY ANA Administration Heparin Sodium (Porcine) 5,000 units 12/07/17 22:00 12/08/17 06:21 Heparin SC 5,000 units Q8 ANA Administration Doxycycline Hyclate 100 mg/ 100 mls @ 100 mls/hr 12/03/17 12:30 12/09/17 11: 34 Sodium Chloride IVPB 100 mls/hr Q12H ANA Administration Linezolid 600 mg in 300 mls @ 200 mls/hr 12/05/17 10:00 12/09/17 09:12 Zyvox 600mg/300ml D5w IVPB 200 mls/hr Q12 ANA Administration Aztreonam 1 gm/ Sodium 100 mls @ 100 mls/hr 12/05/17 13:00 12/09/17 14:26 Chloride IVPB 100 mls/hr Q12H ANA Administration Insulin Aspart 0 unit 12/06/17 12:00 12/09/17 14:20 Novolog SC 4 unit Q6 ANA Administration Protocol Insulin Detemir 10 unit 12/08/17 22:00 12/08/17 21:03 Levemir SC 10 unit HS ANA Administration Latanoprost 0 ml 12/01/17 23:45 12/08/17 21:05 Xalatan Opht OD 2.5 ml HS ANA Administration Metoprolol Tartrate 25 mg 12/08/17 18:00 12/09/17 11:04 Lopressor PO 25 mg BID ANA Administration Sodium Bicarbonate 650 mg 12/06/17 18:00 12/09/17 11:04 Sodium Bicarbonate Tab PO 650 mg BID ANA Administration Sucralfate 1 gm 12/03/17 18:00 12/09/17 14:26 Carafate Oral Susp PO 1 gm TID ANA Administration - Patient Studies Lab Studies: Microbiology Studies 12/08/17 04:00 Blood Culture - Preliminary Blood-Venous NO GROWTH AFTER 24 HOURS 12/08/17 04:00 Blood Culture - Preliminary Blood-Venous NO GROWTH AFTER 24 HOURS Lab Studies 12/09/17 12/09/17 12/09/17 Range/Units 06:22 06:21 05:24 WBC 16.7 H (4.8-10.8) K/uL RBC 3.35 L (4.40-5.90) Mil/uL Hgb 8.8 L (12.0-18.0) g/dL Hct 27.1 L (35.0-51.0) % MCV 80.9 (80.0-94.0) fL MCH 26.2 L (27.0-31.0) pg MCHC 32.4 L (33.0-37.0) g/dL RDW 16.5 H (11.5-14.5) % Plt Count 173 (130-400) K/uL MPV 10.0 (7.2-11.7) fL Neut % (Auto) 91.5 H (50.0-75.0) % Lymph % (Auto) 5.1 L (20.0-40.0) % [place] % (Auto) 3.3 (0.0-10.0) % Eos % (Auto) 0.0 (0.0-4.0) % Baso % (Auto) 0.1 (0.0-2.0) % Neut # (Auto) 15.2 H (1.8-7.0) K/uL Lymph # (Auto) 0.8 L (1.0-4.3) K/uL [place] # (Auto) 0.5 (0.0-0.8) K/uL Eos # (Auto) 0.0 (0.0-0.7) K/uL Baso # (Auto) 0.0 (0.0-0.2) K/uL Neutrophils % (Manual) 91 H (50-75) % Lymphocytes % (Manual) 6 L (20-40) % Monocytes % (Manual) 3 (0-10) % Platelet Estimate Normal (NORMAL) Polychromasia Slight Poikilocytosis (manual Slight Anisocytosis (manual) Slight Ovalocytes Slight [place] Cells Slight PT (9.7-12.2) SECONDS INR APTT (21-34) SECONDS Puncture Site pCO2 (35-45) mm/Hg pO2 (80-100) mm/Hg HCO3 (21-28) mmol/L ABG pH (7.35-7.45) ABG Total CO2 (22-28) mmol/L ABG O2 Saturation (95-98) % ABG Base Excess (-2.0-3.0) mmol/L ABG Hemoglobin (11.7-17.4) g/dL ABG Carboxyhemoglobin (0.5-1.5) % POC ABG HHb (Measured) (0.0-5.0) % ABG Methemoglobin (0.0-3.0) % Parviz Test A-a O2 Difference mm/Hg Respiratory Index Hgb O2 Saturation (95.0-98.0) % Vent Mode Mechanical Rate FiO2 % Tidal Volume PEEP Sodium 147 (132-148) mmol/L Potassium 3.3 L (3.6-5.2) mmol/L Chloride 114 H (98-107) mmol/L Carbon Dioxide 24 (22-30) mmol/L Anion Gap 13 (10-20) BUN 95 H (9-20) mg/dL Creatinine 2.4 H (0.8-1.5) mg/dL Est GFR ( Amer) 31 Est GFR (Non-Af Amer) 26 POC Glucose (mg/dL) 253 H (65-110) mg/dL Random Glucose 196 H (75-110) mg/dL Calcium 7.9 L (8.6-10.4) mg/dl Phosphorus 4.1 (2.5-4.5) mg/dL Magnesium 1.9 (1.6-2.3) mg/dL Total Bilirubin 0.5 (0.2-1.3) mg/dL AST 24 (17-59) U/L ALT 52 (21-72) U/L Alkaline Phosphatase 53 (38-126) U/L Total Protein 4.2 L (6.3-8.3) g/dL Albumin 2.2 L (3.5-5.0) g/dL Globulin 2.0 L (2.2-3.9) gm/dL Albumin/Globulin Ratio 1.1 (1.0-2.1) Urine Color (YELLOW) Urine Clarity (Clear) Urine pH (5.0-8.0) Ur Specific [place] (1.003-1.030) Urine Protein (NEGATIVE) mg/dL Urine Glucose (UA) (Normal) mg/dL Urine Ketones (NEGATIVE) mg/dL Urine Blood (NEGATIVE) Urine Nitrate (NEGATIVE) Urine Bilirubin (NEGATIVE) Urine Urobilinogen (0.2-1.0) mg/dL Ur Leukocyte Esterase (Negative) Keyur/uL Urine WBC (Auto) (0-5) /hpf Urine RBC (Auto) (0-3) /hpf Ur Squamous Epith Cells (0-5) /hpf Amorphous Sediment (<OCC) /ul Urine Bacteria (<OCC) Ur Random Sodium mmol/L Urine Collection Time HRS Urine Total Volume mL Ur Protein 24 Hr Calc (42-225) mg/24hr [place] RNA (RT-PCR) (Not Detected) Blood Type Antibody Screen 12/09/17 12/09/17 12/09/17 Range/Units 04:15 02:15 01:33 WBC (4.8-10.8) K/uL RBC (4.40-5.90) Mil/uL Hgb (12.0-18.0) g/dL Hct (35.0-51.0) % MCV (80.0-94.0) fL MCH (27.0-31.0) pg MCHC (33.0-37.0) g/dL RDW (11.5-14.5) % Plt Count (130-400) K/uL MPV (7.2-11.7) fL Neut % (Auto) (50.0-75.0) % Lymph % (Auto) (20.0-40.0) % [place] % (Auto) (0.0-10.0) % Eos % (Auto) (0.0-4.0) % Baso % (Auto) (0.0-2.0) % Neut # (Auto) (1.8-7.0) K/uL Lymph # (Auto) (1.0-4.3) K/uL [place] # (Auto) (0.0-0.8) K/uL Eos # (Auto) (0.0-0.7) K/uL Baso # (Auto) (0.0-0.2) K/uL Neutrophils % (Manual) (50-75) % Lymphocytes % (Manual) (20-40) % Monocytes % (Manual) (0-10) % Platelet Estimate (NORMAL) Polychromasia Poikilocytosis (manual Anisocytosis (manual) Ovalocytes [place] Cells PT 13.1 H (9.7-12.2) SECONDS INR 1.2 APTT 32 (21-34) SECONDS Puncture Site Lb pCO2 31 L (35-45) mm/Hg pO2 106 H (80-100) mm/Hg HCO3 24.4 (21-28) mmol/L ABG pH 7.47 H (7.35-7.45) ABG Total CO2 23.6 (22-28) mmol/L ABG O2 Saturation 99.3 H (95-98) % ABG Base Excess -0.7 (-2.0-3.0) mmol/L ABG Hemoglobin 9.1 L (11.7-17.4) g/dL ABG Carboxyhemoglobin 1.6 H (0.5-1.5) % POC ABG HHb (Measured) 0.7 (0.0-5.0) % ABG Methemoglobin 1.2 (0.0-3.0) % Parviz Test Na A-a O2 Difference 140.0 mm/Hg Respiratory Index 1.3 Hgb O2 Saturation 96.5 (95.0-98.0) % Vent Mode Prvc Mechanical Rate 16 FiO2 40.0 % Tidal Volume 450 PEEP 5 Sodium (132-148) mmol/L Potassium (3.6-5.2) mmol/L Chloride (98-107) mmol/L Carbon Dioxide (22-30) mmol/L Anion Gap (10-20) BUN (9-20) mg/dL Creatinine (0.8-1.5) mg/dL Est GFR ( Amer) Est GFR (Non-Af Amer) POC Glucose (mg/dL) (65-110) mg/dL Random Glucose (75-110) mg/dL Calcium (8.6-10.4) mg/dl Phosphorus (2.5-4.5) mg/dL Magnesium (1.6-2.3) mg/dL Total Bilirubin (0.2-1.3) mg/dL AST (17-59) U/L ALT (21-72) U/L Alkaline Phosphatase (38-126) U/L Total Protein (6.3-8.3) g/dL Albumin (3.5-5.0) g/dL Globulin (2.2-3.9) gm/dL Albumin/Globulin Ratio (1.0-2.1) Urine Color (YELLOW) Urine Clarity (Clear) Urine pH (5.0-8.0) Ur Specific [place] (1.003-1.030) Urine Protein (NEGATIVE) mg/dL Urine Glucose (UA) (Normal) mg/dL Urine Ketones (NEGATIVE) mg/dL Urine Blood (NEGATIVE) Urine Nitrate (NEGATIVE) Urine Bilirubin (NEGATIVE) Urine Urobilinogen (0.2-1.0) mg/dL Ur Leukocyte Esterase (Negative) Keyur/uL Urine WBC (Auto) (0-5) /hpf Urine RBC (Auto) (0-3) /hpf Ur Squamous Epith Cells (0-5) /hpf Amorphous Sediment (<OCC) /ul Urine Bacteria (<OCC) Ur Random Sodium mmol/L Urine Collection Time 24 HRS Urine Total Volume 1900 mL Ur Protein 24 Hr Calc 380.0 H (42-225) mg/24hr [place] RNA (RT-PCR) (Not Detected) Blood Type Antibody Screen 12/08/17 12/08/17 12/08/17 Range/Units 23:37 20:40 20:40 WBC 15.7 H (4.8-10.8) K/uL RBC 2.80 L (4.40-5.90) Mil/uL Hgb 7.5 L (12.0-18.0) g/dL Hct 23.0 L (35.0-51.0) % MCV 82.3 (80.0-94.0) fL MCH 26.9 L (27.0-31.0) pg MCHC 32.7 L (33.0-37.0) g/dL RDW 15.7 H (11.5-14.5) % Plt Count 184 (130-400) K/uL MPV 9.6 (7.2-11.7) fL Neut % (Auto) (50.0-75.0) % Lymph % (Auto) (20.0-40.0) % [place] % (Auto) (0.0-10.0) % Eos % (Auto) (0.0-4.0) % Baso % (Auto) (0.0-2.0) % Neut # (Auto) (1.8-7.0) K/uL Lymph # (Auto) (1.0-4.3) K/uL [place] # (Auto) (0.0-0.8) K/uL Eos # (Auto) (0.0-0.7) K/uL Baso # (Auto) (0.0-0.2) K/uL Neutrophils % (Manual) (50-75) % Lymphocytes % (Manual) (20-40) % Monocytes % (Manual) (0-10) % Platelet Estimate (NORMAL) Polychromasia Poikilocytosis (manual Anisocytosis (manual) Ovalocytes Danni Cells PT (9.7-12.2) SECONDS INR APTT (21-34) SECONDS Puncture Site pCO2 (35-45) mm/Hg pO2 (80-100) mm/Hg HCO3 (21-28) mmol/L ABG pH (7.35-7.45) ABG Total CO2 (22-28) mmol/L ABG O2 Saturation (95-98) % ABG Base Excess (-2.0-3.0) mmol/L ABG Hemoglobin (11.7-17.4) g/dL ABG Carboxyhemoglobin (0.5-1.5) % POC ABG HHb (Measured) (0.0-5.0) % ABG Methemoglobin (0.0-3.0) % Parviz Test A-a O2 Difference mm/Hg Respiratory Index Hgb O2 Saturation (95.0-98.0) % Vent Mode Mechanical Rate FiO2 % Tidal Volume PEEP Sodium 147 (132-148) mmol/L Potassium 3.5 L (3.6-5.2) mmol/L Chloride 114 H (98-107) mmol/L Carbon Dioxide 24 (22-30) mmol/L Anion Gap 12 (10-20) BUN 94 H (9-20) mg/dL Creatinine 2.6 H (0.8-1.5) mg/dL Est GFR ( Amer) 28 Est GFR (Non-Af Amer) 23 POC Glucose (mg/dL) 237 H (65-110) mg/dL Random Glucose 178 H (75-110) mg/dL Calcium 7.7 L (8.6-10.4) mg/dl Phosphorus (2.5-4.5) mg/dL Magnesium (1.6-2.3) mg/dL Total Bilirubin (0.2-1.3) mg/dL AST (17-59) U/L ALT (21-72) U/L Alkaline Phosphatase (38-126) U/L Total Protein (6.3-8.3) g/dL Albumin (3.5-5.0) g/dL Globulin (2.2-3.9) gm/dL Albumin/Globulin Ratio (1.0-2.1) Urine Color (YELLOW) Urine Clarity (Clear) Urine pH (5.0-8.0) Ur Specific [place] (1.003-1.030) Urine Protein (NEGATIVE) mg/dL Urine Glucose (UA) (Normal) mg/dL Urine Ketones (NEGATIVE) mg/dL Urine Blood (NEGATIVE) Urine Nitrate (NEGATIVE) Urine Bilirubin (NEGATIVE) Urine Urobilinogen (0.2-1.0) mg/dL Ur Leukocyte Esterase (Negative) Keyur/uL Urine WBC (Auto) (0-5) /hpf Urine RBC (Auto) (0-3) /hpf Ur Squamous Epith Cells (0-5) /hpf Amorphous Sediment (<OCC) /ul Urine Bacteria (<OCC) Ur Random Sodium mmol/L Urine Collection Time HRS Urine Total Volume mL Ur Protein 24 Hr Calc (42-225) mg/24hr [place] RNA (RT-PCR) (Not Detected) Blood Type Antibody Screen 12/08/17 12/08/17 12/08/17 Range/Units 19:02 19:02 17:45 WBC (4.8-10.8) K/uL RBC (4.40-5.90) Mil/uL Hgb (12.0-18.0) g/dL Hct (35.0-51.0) % MCV (80.0-94.0) fL MCH (27.0-31.0) pg MCHC (33.0-37.0) g/dL RDW (11.5-14.5) % Plt Count (130-400) K/uL MPV (7.2-11.7) fL Neut % (Auto) (50.0-75.0) % Lymph % (Auto) (20.0-40.0) % [place] % (Auto) (0.0-10.0) % Eos % (Auto) (0.0-4.0) % Baso % (Auto) (0.0-2.0) % Neut # (Auto) (1.8-7.0) K/uL Lymph # (Auto) (1.0-4.3) K/uL [place] # (Auto) (0.0-0.8) K/uL Eos # (Auto) (0.0-0.7) K/uL Baso # (Auto) (0.0-0.2) K/uL Neutrophils % (Manual) (50-75) % Lymphocytes % (Manual) (20-40) % Monocytes % (Manual) (0-10) % Platelet Estimate (NORMAL) Polychromasia Poikilocytosis (manual Anisocytosis (manual) Ovalocytes Danni Cells PT (9.7-12.2) SECONDS INR APTT (21-34) SECONDS Puncture Site pCO2 (35-45) mm/Hg pO2 (80-100) mm/Hg HCO3 (21-28) mmol/L ABG pH (7.35-7.45) ABG Total CO2 (22-28) mmol/L ABG O2 Saturation (95-98) % ABG Base Excess (-2.0-3.0) mmol/L ABG Hemoglobin (11.7-17.4) g/dL ABG Carboxyhemoglobin (0.5-1.5) % POC ABG HHb (Measured) (0.0-5.0) % ABG Methemoglobin (0.0-3.0) % Parviz Test A-a O2 Difference mm/Hg Respiratory Index Hgb O2 Saturation (95.0-98.0) % Vent Mode Mechanical Rate FiO2 % Tidal Volume PEEP Sodium (132-148) mmol/L Potassium (3.6-5.2) mmol/L Chloride (98-107) mmol/L Carbon Dioxide (22-30) mmol/L Anion Gap (10-20) BUN (9-20) mg/dL Creatinine (0.8-1.5) mg/dL Est GFR ( Amer) Est GFR (Non-Af Amer) POC Glucose (mg/dL) 187 H (65-110) mg/dL Random Glucose (75-110) mg/dL Calcium (8.6-10.4) mg/dl Phosphorus (2.5-4.5) mg/dL Magnesium (1.6-2.3) mg/dL Total Bilirubin (0.2-1.3) mg/dL AST (17-59) U/L ALT (21-72) U/L Alkaline Phosphatase (38-126) U/L Total Protein (6.3-8.3) g/dL Albumin (3.5-5.0) g/dL Globulin (2.2-3.9) gm/dL Albumin/Globulin Ratio (1.0-2.1) Urine Color Yellow (YELLOW) Urine Clarity Hazy (Clear) Urine pH 5.0 (5.0-8.0) Ur Specific [place] 1.014 (1.003-1.030) Urine Protein Negative (NEGATIVE) mg/dL Urine Glucose (UA) Normal (Normal) mg/dL Urine Ketones Negative (NEGATIVE) mg/dL Urine Blood Negative (NEGATIVE) Urine Nitrate Negative (NEGATIVE) Urine Bilirubin Negative (NEGATIVE) Urine Urobilinogen Normal (0.2-1.0) mg/dL Ur Leukocyte Esterase Neg (Negative) Keyur/uL Urine WBC (Auto) 3 (0-5) /hpf Urine RBC (Auto) 4 H (0-3) /hpf Ur Squamous Epith Cells < 1 (0-5) /hpf Amorphous Sediment Occ H (<OCC) /ul Urine Bacteria Few H (<OCC) Ur Random Sodium 21 mmol/L Urine Collection Time HRS Urine Total Volume mL Ur Protein 24 Hr Calc (42-225) mg/24hr [place] RNA (RT-PCR) (Not Detected) Blood Type Antibody Screen 12/08/17 12/02/17 Range/Units 10:59 14:11 WBC (4.8-10.8) K/uL RBC (4.40-5.90) Mil/uL Hgb (12.0-18.0) g/dL Hct (35.0-51.0) % MCV (80.0-94.0) fL MCH (27.0-31.0) pg MCHC (33.0-37.0) g/dL RDW (11.5-14.5) % Plt Count (130-400) K/uL MPV (7.2-11.7) fL Neut % (Auto) (50.0-75.0) % Lymph % (Auto) (20.0-40.0) % [place] % (Auto) (0.0-10.0) % Eos % (Auto) (0.0-4.0) % Baso % (Auto) (0.0-2.0) % Neut # (Auto) (1.8-7.0) K/uL Lymph # (Auto) (1.0-4.3) K/uL [place] # (Auto) (0.0-0.8) K/uL Eos # (Auto) (0.0-0.7) K/uL Baso # (Auto) (0.0-0.2) K/uL Neutrophils % (Manual) (50-75) % Lymphocytes % (Manual) (20-40) % Monocytes % (Manual) (0-10) % Platelet Estimate (NORMAL) Polychromasia Poikilocytosis (manual Anisocytosis (manual) Ovalocytes Danni Cells PT (9.7-12.2) SECONDS INR APTT (21-34) SECONDS Puncture Site pCO2 (35-45) mm/Hg pO2 (80-100) mm/Hg HCO3 (21-28) mmol/L ABG pH (7.35-7.45) ABG Total CO2 (22-28) mmol/L ABG O2 Saturation (95-98) % ABG Base Excess (-2.0-3.0) mmol/L ABG Hemoglobin (11.7-17.4) g/dL ABG Carboxyhemoglobin (0.5-1.5) % POC ABG HHb (Measured) (0.0-5.0) % ABG Methemoglobin (0.0-3.0) % Parviz Test A-a O2 Difference mm/Hg Respiratory Index Hgb O2 Saturation (95.0-98.0) % Vent Mode Mechanical Rate FiO2 % Tidal Volume PEEP Sodium (132-148) mmol/L Potassium (3.6-5.2) mmol/L Chloride (98-107) mmol/L Carbon Dioxide (22-30) mmol/L Anion Gap (10-20) BUN (9-20) mg/dL Creatinine (0.8-1.5) mg/dL Est GFR ( Amer) Est GFR (Non-Af Amer) POC Glucose (mg/dL) (65-110) mg/dL Random Glucose (75-110) mg/dL Calcium (8.6-10.4) mg/dl Phosphorus (2.5-4.5) mg/dL Magnesium (1.6-2.3) mg/dL Total Bilirubin (0.2-1.3) mg/dL AST (17-59) U/L ALT (21-72) U/L Alkaline Phosphatase (38-126) U/L Total Protein (6.3-8.3) g/dL Albumin (3.5-5.0) g/dL Globulin (2.2-3.9) gm/dL Albumin/Globulin Ratio (1.0-2.1) Urine Color (YELLOW) Urine Clarity (Clear) Urine pH (5.0-8.0) Ur Specific [place] (1.003-1.030) Urine Protein (NEGATIVE) mg/dL Urine Glucose (UA) (Normal) mg/dL Urine Ketones (NEGATIVE) mg/dL Urine Blood (NEGATIVE) Urine Nitrate (NEGATIVE) Urine Bilirubin (NEGATIVE) Urine Urobilinogen (0.2-1.0) mg/dL Ur Leukocyte Esterase (Negative) Keyur/uL Urine WBC (Auto) (0-5) /hpf Urine RBC (Auto) (0-3) /hpf Ur Squamous Epith Cells (0-5) /hpf Amorphous Sediment (<OCC) /ul Urine Bacteria (<OCC) Ur Random Sodium mmol/L Urine Collection Time HRS Urine Total Volume mL Ur Protein 24 Hr Calc (42-225) mg/24hr [place] RNA (RT-PCR) Not detected (Not Detected) Blood Type O POSITIVE Antibody Screen Negative Laboratory Results - last 24 hr 12/02/17 12/08/17 12/08/17 14:11 10:59 17:45 WBC RBC Hgb Hct MCV MCH MCHC RDW Plt Count MPV Neut % (Auto) Lymph % (Auto) [place] % (Auto) Eos % (Auto) Baso % (Auto) Neut # (Auto) Lymph # (Auto) [place] # (Auto) Eos # (Auto) Baso # (Auto) Neutrophils % (Manual) Lymphocytes % (Manual) Monocytes % (Manual) Platelet Estimate Polychromasia Poikilocytosis (manual Anisocytosis (manual) Ovalocytes Danni Cells PT INR APTT Puncture Site pCO2 pO2 HCO3 ABG pH ABG Total CO2 ABG O2 Saturation ABG Base Excess ABG Hemoglobin ABG Carboxyhemoglobin POC ABG HHb (Measured) ABG Methemoglobin Parviz Test A-a O2 Difference Respiratory Index Hgb O2 Saturation Vent Mode Mechanical Rate FiO2 Tidal Volume PEEP Sodium Potassium Chloride Carbon Dioxide Anion Gap BUN Creatinine Est GFR ( Amer) Est GFR (Non-Af Amer) POC Glucose (mg/dL) 187 H Random Glucose Calcium Phosphorus Magnesium Total Bilirubin AST ALT Alkaline Phosphatase Total Protein Albumin Globulin Albumin/Globulin Ratio Urine Color Urine Clarity Urine pH Ur Specific [place] Urine Protein Urine Glucose (UA) Urine Ketones Urine Blood Urine Nitrate Urine Bilirubin Urine Urobilinogen Ur Leukocyte Esterase Urine WBC (Auto) Urine RBC (Auto) Ur Squamous Epith Cells Amorphous Sediment Urine Bacteria Ur Random Sodium Urine Collection Time Urine Total Volume Ur Protein 24 Hr Calc [place] RNA (RT-PCR) Not detected Blood Type O POSITIVE Antibody Screen Negative 12/08/17 12/08/17 12/08/17 19:02 19:02 20:40 WBC 15.7 H RBC 2.80 L Hgb 7.5 L Hct 23.0 L MCV 82.3 MCH 26.9 L MCHC 32.7 L RDW 15.7 H Plt Count 184 MPV 9.6 Neut % (Auto) Lymph % (Auto) [place] % (Auto) Eos % (Auto) Baso % (Auto) Neut # (Auto) Lymph # (Auto) [place] # (Auto) Eos # (Auto) Baso # (Auto) Neutrophils % (Manual) Lymphocytes % (Manual) Monocytes % (Manual) Platelet Estimate Polychromasia Poikilocytosis (manual Anisocytosis (manual) Ovalocytes [place] Cells PT INR APTT Puncture Site pCO2 pO2 HCO3 ABG pH ABG Total CO2 ABG O2 Saturation ABG Base Excess ABG Hemoglobin ABG Carboxyhemoglobin POC ABG HHb (Measured) ABG Methemoglobin Parviz Test A-a O2 Difference Respiratory Index Hgb O2 Saturation Vent Mode Mechanical Rate FiO2 Tidal Volume PEEP Sodium Potassium Chloride Carbon Dioxide Anion Gap BUN Creatinine Est GFR ( Amer) Est GFR (Non-Af Amer) POC Glucose (mg/dL) Random Glucose Calcium Phosphorus Magnesium Total Bilirubin AST ALT Alkaline Phosphatase Total Protein Albumin Globulin Albumin/Globulin Ratio Urine Color Yellow Urine Clarity Hazy Urine pH 5.0 Ur Specific [place] 1.014 Urine Protein Negative Urine Glucose (UA) Normal Urine Ketones Negative Urine Blood Negative Urine Nitrate Negative Urine Bilirubin Negative Urine Urobilinogen Normal Ur Leukocyte Esterase Neg Urine WBC (Auto) 3 Urine RBC (Auto) 4 H Ur Squamous Epith Cells < 1 Amorphous Sediment Occ H Urine Bacteria Few H Ur Random Sodium 21 Urine Collection Time Urine Total Volume Ur Protein 24 Hr Calc [place] RNA (RT-PCR) Blood Type Antibody Screen 12/08/17 12/08/17 12/09/17 20:40 23:37 01:33 WBC RBC Hgb Hct MCV MCH MCHC RDW Plt Count MPV Neut % (Auto) Lymph % (Auto) [place] % (Auto) Eos % (Auto) Baso % (Auto) Neut # (Auto) Lymph # (Auto) [place] # (Auto) Eos # (Auto) Baso # (Auto) Neutrophils % (Manual) Lymphocytes % (Manual) Monocytes % (Manual) Platelet Estimate Polychromasia Poikilocytosis (manual Anisocytosis (manual) Ovalocytes Danni Cells PT 13.1 H INR 1.2 APTT 32 Puncture Site pCO2 pO2 HCO3 ABG pH ABG Total CO2 ABG O2 Saturation ABG Base Excess ABG Hemoglobin ABG Carboxyhemoglobin POC ABG HHb (Measured) ABG Methemoglobin Parviz Test A-a O2 Difference Respiratory Index Hgb O2 Saturation Vent Mode Mechanical Rate FiO2 Tidal Volume PEEP Sodium 147 Potassium 3.5 L Chloride 114 H Carbon Dioxide 24 Anion Gap 12 BUN 94 H Creatinine 2.6 H Est GFR ( Amer) 28 Est GFR (Non-Af Amer) 23 POC Glucose (mg/dL) 237 H Random Glucose 178 H Calcium 7.7 L Phosphorus Magnesium Total Bilirubin AST ALT Alkaline Phosphatase Total Protein Albumin Globulin Albumin/Globulin Ratio Urine Color Urine Clarity Urine pH Ur Specific [place] Urine Protein Urine Glucose (UA) Urine Ketones Urine Blood Urine Nitrate Urine Bilirubin Urine Urobilinogen Ur Leukocyte Esterase Urine WBC (Auto) Urine RBC (Auto) Ur Squamous Epith Cells Amorphous Sediment Urine Bacteria Ur Random Sodium Urine Collection Time Urine Total Volume Ur Protein 24 Hr Calc [place] RNA (RT-PCR) Blood Type Antibody Screen 12/09/17 12/09/17 12/09/17 02:15 04:15 05:24 WBC RBC Hgb Hct MCV MCH MCHC RDW Plt Count MPV Neut % (Auto) Lymph % (Auto) [place] % (Auto) Eos % (Auto) Baso % (Auto) Neut # (Auto) Lymph # (Auto) [place] # (Auto) Eos # (Auto) Baso # (Auto) Neutrophils % (Manual) Lymphocytes % (Manual) Monocytes % (Manual) Platelet Estimate Polychromasia Poikilocytosis (manual Anisocytosis (manual) Ovalocytes Danni Cells PT INR APTT Puncture Site Lb pCO2 31 L pO2 106 H HCO3 24.4 ABG pH 7.47 H ABG Total CO2 23.6 ABG O2 Saturation 99.3 H ABG Base Excess -0.7 ABG Hemoglobin 9.1 L ABG Carboxyhemoglobin 1.6 H POC ABG HHb (Measured) 0.7 ABG Methemoglobin 1.2 Parviz Test Na A-a O2 Difference 140.0 Respiratory Index 1.3 Hgb O2 Saturation 96.5 Vent Mode Prvc Mechanical Rate 16 FiO2 40.0 Tidal Volume 450 PEEP 5 Sodium Potassium Chloride Carbon Dioxide Anion Gap BUN Creatinine Est GFR ( Amer) Est GFR (Non-Af Amer) POC Glucose (mg/dL) 253 H Random Glucose Calcium Phosphorus Magnesium Total Bilirubin AST ALT Alkaline Phosphatase Total Protein Albumin Globulin Albumin/Globulin Ratio Urine Color Urine Clarity Urine pH Ur Specific [place] Urine Protein Urine Glucose (UA) Urine Ketones Urine Blood Urine Nitrate Urine Bilirubin Urine Urobilinogen Ur Leukocyte Esterase Urine WBC (Auto) Urine RBC (Auto) Ur Squamous Epith Cells Amorphous Sediment Urine Bacteria Ur Random Sodium Urine Collection Time 24 Urine Total Volume 1900 Ur Protein 24 Hr Calc 380.0 H [place] RNA (RT-PCR) Blood Type Antibody Screen 12/09/17 12/09/17 06:21 06:22 WBC 16.7 H RBC 3.35 L Hgb 8.8 L Hct 27.1 L MCV 80.9 MCH 26.2 L MCHC 32.4 L RDW 16.5 H Plt Count 173 MPV 10.0 Neut % (Auto) 91.5 H Lymph % (Auto) 5.1 L [place] % (Auto) 3.3 Eos % (Auto) 0.0 Baso % (Auto) 0.1 Neut # (Auto) 15.2 H Lymph # (Auto) 0.8 L [place] # (Auto) 0.5 Eos # (Auto) 0.0 Baso # (Auto) 0.0 Neutrophils % (Manual) 91 H Lymphocytes % (Manual) 6 L Monocytes % (Manual) 3 Platelet Estimate Normal Polychromasia Slight Poikilocytosis (manual Slight Anisocytosis (manual) Slight Ovalocytes Slight Danni Cells Slight PT INR APTT Puncture Site pCO2 pO2 HCO3 ABG pH ABG Total CO2 ABG O2 Saturation ABG Base Excess ABG Hemoglobin ABG Carboxyhemoglobin POC ABG HHb (Measured) ABG Methemoglobin Parviz Test A-a O2 Difference Respiratory Index Hgb O2 Saturation Vent Mode Mechanical Rate FiO2 Tidal Volume PEEP Sodium 147 Potassium 3.3 L Chloride 114 H Carbon Dioxide 24 Anion Gap 13 BUN 95 H Creatinine 2.4 H Est GFR ( Amer) 31 Est GFR (Non-Af Amer) 26 POC Glucose (mg/dL) Random Glucose 196 H Calcium 7.9 L Phosphorus 4.1 Magnesium 1.9 Total Bilirubin 0.5 AST 24 ALT 52 Alkaline Phosphatase 53 Total Protein 4.2 L Albumin 2.2 L Globulin 2.0 L Albumin/Globulin Ratio 1.1 Urine Color Urine Clarity Urine pH Ur Specific [place] Urine Protein Urine Glucose (UA) Urine Ketones Urine Blood Urine Nitrate Urine Bilirubin Urine Urobilinogen Ur Leukocyte Esterase Urine WBC (Auto) Urine RBC (Auto) Ur Squamous Epith Cells Amorphous Sediment Urine Bacteria Ur Random Sodium Urine Collection Time Urine Total Volume Ur Protein 24 Hr Calc [place] RNA (RT-PCR) Blood Type Antibody Screen Fingerstick Blood Sugar Results: 218 Assessment/Plan - Assessment and Plan (Free Text) Plan: -Respiratory failure: s/p trach, monitor FiO2 45% -Acute blood loss anemia:continue to monitor hb/hct -DVT:not a candidate for Anticogulation, s/p IVC -sepsis: continue empriical abx, f/u cultures -CAD/NSTEMI/A-flutter:HR controlled, contineu asa and statin -continue dvt/pud -contineu peg tube feeds -pain: PRN dilaudid -Patient remains hemodynamically stable -possible LTAC on monday above management d/w - Date & Time Date: 12/09/17 Time: 15:22
[2017-12-09] MEDS ORDERED: HYDROmorphone 0.5 mg/0.5 ml ISec IVP PRN (16:15)
[2017-12-09] MEDS ORDERED: Potassium Chloride 20 mEq/15 ml LIQ UD PO ONE (16:15)
--- NOTE | 2017-12-09 17:41 | RAD ---
PROCEDURE: Intraoperative Fluoroscopy. HISTORY: B/L DVT IVC FILTER PLACEMENT FINDINGS: Fluoroscopic assistance was provided for IVC filter placement, and inferior venogram. Please refer to the operative report from ARIANE Rodriguez. Total fluoroscopic time 68.9 second. Accumulated dose: 31.94 mGy
--- NOTE | 2017-12-09 18:13 | CP.PCM.PN ---
Subjective - Date & Time of Evaluation Date of Evaluation: 12/09/17 Time of Evaluation: 13:00 - Subjective Subjective: clinically same Objective - Vital Signs/Intake and Output Vital Signs (last 24 hours): Temp Pulse Resp BP Pulse Ox 97.4 F L 84 16 124/66 100 12/09/17 16:00 12/09/17 16:40 12/09/17 16:40 12/09/17 16:40 12/09/17 16:40 Intake and Output: 12/09/17 12/09/17 06:59 18:59 Intake Total 2520 900 Output Total 985 525 Balance 1535 375 - Medications Medications: Current Medications Acetaminophen (Tylenol 650mg/20.3ml Solution Ud) 650 mg PO Q6 PRN PRN Reason: fever Last Admin: 12/07/17 21:00 Dose: 650 mg Aspirin (Aspirin Chewable) 81 mg PO DAILY [facility] Last Admin: 12/08/17 09:55 Dose: 81 mg Bisacodyl (Dulcolax) 10 mg [place] Q24H PRN PRN Reason: Constipation Diltiazem HCl (Cardizem) 60 mg PO Q6 [facility] Last Admin: 12/09/17 11:35 Dose: 60 mg Famotidine (Pepcid) 20 mg IVP DAILY [facility] Last Admin: 12/09/17 09:11 Dose: 20 mg Heparin Sodium (Porcine) (Heparin) 5,000 units SC Q8 [facility] Last Admin: 12/08/17 06:21 Dose: 5,000 units Hydromorphone HCl (Dilaudid) 0.5 mg IVP Q4H PRN PRN Reason: Pain, moderate (4-7) Doxycycline Hyclate 100 mg/ (Sodium Chloride) 100 mls @ 100 mls/hr IVPB Q12H [facility] Last Admin: 12/09/17 11:34 Dose: 100 mls/hr Linezolid (Zyvox 600mg/300ml D5w) 600 mg in 300 mls @ 200 mls/hr IVPB Q12 [facility] Last Admin: 12/09/17 09:12 Dose: 200 mls/hr Aztreonam 1 gm/ Sodium (Chloride) 100 mls @ 100 mls/hr IVPB Q12H [facility] Last Admin: 12/09/17 14:26 Dose: 100 mls/hr Insulin Aspart (Novolog) 0 unit SC Q6 [facility] PRN Reason: Protocol Last Admin: 12/09/17 14:20 Dose: 4 unit Insulin Detemir (Levemir) 10 unit SC [facility] Last Admin: 12/08/17 21:03 Dose: 10 unit Latanoprost (Xalatan Opht) 0 ml OD HS [facility] Last Admin: 12/08/17 21:05 Dose: 2.5 ml Metoprolol Tartrate (Lopressor) 25 mg PO BID [facility] Last Admin: 12/09/17 11:04 Dose: 25 mg Sodium Bicarbonate (Sodium Bicarbonate Tab) 650 mg PO BID [facility] Last Admin: 12/09/17 11:04 Dose: 650 mg Sucralfate (Carafate Oral Susp) 1 gm PO TID [facility] Last Admin: 12/09/17 14:26 Dose: 1 gm - Labs Labs: 12/09/17 06:21 12/09/17 06:22 PT 13.1 SECONDS (9.7-12.2) H 12/09/17 01:33 INR 1.2 12/09/17 01:33 APTT 32 SECONDS (21-34) 12/09/17 01:33 - Constitutional Appears: Well - Head Exam Head Exam: ATRAUMATIC, NORMAL INSPECTION, NORMOCEPHALIC - Eye Exam Eye Exam: EOMI, Normal appearance, PERRL Pupil Exam: NORMAL ACCOMODATION, PERRL - ENT Exam ENT Exam: Mucous Membranes Moist, Normal Exam - Neck Exam Neck Exam: Full ROM, Normal Inspection. absent: Lymphadenopathy - Respiratory Exam Respiratory Exam: Decreased Breath Sounds - Cardiovascular Exam Cardiovascular Exam: REGULAR RHYTHM, +S1, +S2 - GI/Abdominal Exam GI & Abdominal Exam: Soft, Diminished Bowel Sounds - Rectal Exam Rectal Exam: Deferred Assessment and Plan (1) Bandemia Status: Acute (2) Dyspnea Status: Acute (3) Fever Status: Acute (4) Lethargy Status: Acute (5) Sepsis Status: Acute (6) Contusion Status: Acute (7) Fall Status: Acute
--- NOTE | 2017-12-09 18:33 | CP.PCM.PN ---
Objective - Vital Signs/Intake and Output Vital Signs (last 24 hours): Temp Pulse Resp BP Pulse Ox 97.4 F L 84 16 124/66 100 12/09/17 16:00 12/09/17 16:40 12/09/17 16:40 12/09/17 16:40 12/09/17 16:40 Intake and Output: 12/09/17 12/09/17 06:59 18:59 Intake Total 2520 900 Output Total 985 525 Balance 1535 375 - Medications Medications: Current Medications Acetaminophen (Tylenol 650mg/20.3ml Solution Ud) 650 mg PO Q6 PRN PRN Reason: fever Last Admin: 12/07/17 21:00 Dose: 650 mg Aspirin (Aspirin Chewable) 81 mg PO DAILY [facility] Last Admin: 12/08/17 09:55 Dose: 81 mg Bisacodyl (Dulcolax) 10 mg [place] Q24H PRN PRN Reason: Constipation Diltiazem HCl (Cardizem) 60 mg PO Q6 [facility] Last Admin: 12/09/17 11:35 Dose: 60 mg Famotidine (Pepcid) 20 mg IVP DAILY [facility] Last Admin: 12/09/17 09:11 Dose: 20 mg Heparin Sodium (Porcine) (Heparin) 5,000 units SC Q8 [facility] Last Admin: 12/08/17 06:21 Dose: 5,000 units Hydromorphone HCl (Dilaudid) 0.5 mg IVP Q4H PRN PRN Reason: Pain, moderate (4-7) Doxycycline Hyclate 100 mg/ (Sodium Chloride) 100 mls @ 100 mls/hr IVPB Q12H [facility] Last Admin: 12/09/17 11:34 Dose: 100 mls/hr Linezolid (Zyvox 600mg/300ml D5w) 600 mg in 300 mls @ 200 mls/hr IVPB Q12 [facility] Last Admin: 12/09/17 09:12 Dose: 200 mls/hr Aztreonam 1 gm/ Sodium (Chloride) 100 mls @ 100 mls/hr IVPB Q12H [facility] Last Admin: 12/09/17 14:26 Dose: 100 mls/hr Insulin Aspart (Novolog) 0 unit SC Q6 [facility] PRN Reason: Protocol Last Admin: 12/09/17 14:20 Dose: 4 unit Insulin Detemir (Levemir) 10 unit SC HS [facility] Last Admin: 12/08/17 21:03 Dose: 10 unit Latanoprost (Xalatan Opht) 0 ml OD [facility] Last Admin: 12/08/17 21:05 Dose: 2.5 ml Metoprolol Tartrate (Lopressor) 25 mg PO BID [facility] Last Admin: 12/09/17 11:04 Dose: 25 mg Sodium Bicarbonate (Sodium Bicarbonate Tab) 650 mg PO BID [facility] Last Admin: 12/09/17 11:04 Dose: 650 mg Sucralfate (Carafate Oral Susp) 1 gm PO TID [facility] Last Admin: 12/09/17 14:26 Dose: 1 gm - Labs Labs: 12/09/17 06:21 12/09/17 06:22 PT 13.1 SECONDS (9.7-12.2) H 12/09/17 01:33 INR 1.2 12/09/17 01:33 APTT 32 SECONDS (21-34) 12/09/17 01:33
--- NOTE | 2017-12-09 19:51 | OP ---
PROCEDURE DATE: 12/09/2017 PREOPERATIVE DIAGNOSES: 1. Deep vein thrombosis, pulmonary embolism, and gastrointestinal bleeding. 2. Respiratory failure. POSTOPERATIVE DIAGNOSES: 1. Deep vein thrombosis, pulmonary embolism, and gastrointestinal bleeding. 2. Respiratory failure. PROCEDURE CARRIED OUT: 1. Placement of Bard Jessica removable filter via right femoral vein with C-arm fluoroscopy, ultrasound-guided puncture and micropuncture technique. 2. Percutaneous tracheostomy. SURGEON: Grayson Lo Jr., MD DEVELOPMENTAL SPECIALIST: ANESTHESIA ADMINISTERED BY: Dr. Vitale. INDICATION: The patient is an 87-year-old male with multiple medical problems,I was asked to see on an urgent basis. OPERATIVE FINDINGS: 1. Filter was deployed at the level of renal veins in good position with slight tilt to the right side. 2. Percutaneous tracheostomy was carried out uneventfully. DESCRIPTION OF PROCEDURE: The patient was given general anesthesia and intravenous antibiotics. Using ultrasound-guidance and palpation, we were able to puncture the femoral vein under fluoroscopic control by using micropuncture. We then passed a catheter centrally, exchanged this for an Amplatz wire and then deployed the filter just at the level of renal veins. Subsequent venogram was taken before and after and venogram showed opacification of the iliac and vena cava without any evidence of any thrombosis or thrombus in this region. Subsequently, we then re-prepped and re-draped, we carried out a standard percutaneous tracheostomy. PROCEDURE: A small incision was made on the skin. A needle was placed. Bronchoscopy was simultaneously carried out by the anesthesiologist. A guidewire was inserted with dilator and progressively dilated deployed the tube. We then secured it to the skin, flushed it and terminated the procedure. Blood loss during the procedure was 1 mL. Operation carried out, 1. Placement of Bard Jessica removable filter via right femoral vein with C-arm fluoroscopy, ultrasound-guided puncture and micropuncture technique. 2. Percutaneous tracheostomy. Grayson Lo Jr., MD
[2017-12-09] MEDS: Insulin Detemir 100 units/ml Vial (Levemir) SC SCH (21:00)
[2017-12-09] MEDS: Latanoprost 2.5 ml Opht Soln OD SCH (21:00)
[2017-12-10] MEDS: Aztreonam 1 GM in Sodium Chloride 0.9% 100 ML IVPB SCH ×2 (01:00→12:21)
[2017-12-10] MEDS: (Novolog) Insulin Aspart, Recombinant 100 u/ml 10 ml vial SC SCH ×4 (05:15→17:51)
[2017-12-10 06:04] LABS: ABG ALLEN TEST POS; ARTERIAL BLOOD GAS HCO3 22.9 mmol/L (21-28); ARTERIAL BLOOD GAS HEMOGLOBIN 9.4 g/dL (11.7-17.4); ARTERIAL BLOOD GAS O2 SAT 99.4 % (95-98); ARTERIAL BLOOD GAS PCO2 27 mm/Hg (35-45); ARTERIAL BLOOD GAS PH 7.48 (7.35-7.45); ARTERIAL BLOOD GAS PO2 108 mm/Hg (80-100); ARTERIAL BLOOD GAS TCO2 20.9 mmol/L (22-28)
--- NOTE | 2017-12-10 06:13 | CP.PCM.PN ---
Subjective - Date & Time of Evaluation Date of Evaluation: 12/10/17 Time of Evaluation: 07:30 - Subjective Subjective: Vascular surgery progress note for Dr. Shi Kinsey, PGY-1 Pt S & E at bedside. Pt does not follow commands, at baseline localizes to noxious stimuli. Trach in place, PRVC RR 16, TV 450, PEEP 5, FiO2 40%. On tube feeds. No acute events overnight. Objective - Vital Signs/Intake and Output Vital Signs (last 24 hours): Temp Pulse Resp BP Pulse Ox 98.3 F 133 H 22 106/63 100 12/10/17 04:00 12/10/17 05:00 12/10/17 05:00 12/10/17 04:39 12/10/17 05:00 Intake and Output: 12/09/17 12/10/17 18:59 06:59 Intake Total 1200 1000 Output Total 1400 825 Balance -200 175 - Medications Medications: Current Medications Acetaminophen (Tylenol 650mg/20.3ml Solution Ud) 650 mg PO Q6 PRN PRN Reason: fever Last Admin: 12/07/17 21:00 Dose: 650 mg Aspirin (Aspirin Chewable) 81 mg PO DAILY [facility] Last Admin: 12/08/17 09:55 Dose: 81 mg Bisacodyl (Dulcolax) 10 mg [place] Q24H PRN PRN Reason: Constipation Diltiazem HCl (Cardizem) 60 mg PO Q6 [facility] Last Admin: 12/10/17 05:14 Dose: 60 mg Famotidine (Pepcid) 20 mg IVP DAILY [facility] Last Admin: 12/09/17 09:11 Dose: 20 mg Heparin Sodium (Porcine) (Heparin) 5,000 units SC Q8 [facility] Last Admin: 12/08/17 06:21 Dose: 5,000 units Hydromorphone HCl (Dilaudid) 0.5 mg IVP Q4H PRN PRN Reason: Pain, moderate (4-7) Last Admin: 12/09/17 18:35 Dose: 0.5 mg Doxycycline Hyclate 100 mg/ (Sodium Chloride) 100 mls @ 100 mls/hr IVPB Q12H [facility] Last Admin: 12/10/17 00:30 Dose: 100 mls/hr Linezolid (Zyvox 600mg/300ml D5w) 600 mg in 300 mls @ 200 mls/hr IVPB Q12 [facility] Last Admin: 12/09/17 21:00 Dose: 200 mls/hr Aztreonam 1 gm/ Sodium (Chloride) 100 mls @ 100 mls/hr IVPB Q12H [facility] Last Admin: 12/10/17 01:00 Dose: 100 mls/hr Insulin Aspart (Novolog) 0 unit SC Q6 [facility] PRN Reason: Protocol Last Admin: 12/10/17 05:15 Dose: 8 unit Insulin Detemir (Levemir) 10 unit SC HS [facility] Last Admin: 12/09/17 21:00 Dose: 10 unit Latanoprost (Xalatan Opht) 0 ml OD HS [facility] Last Admin: 12/09/17 21:00 Dose: 2.5 ml Metoprolol Tartrate (Lopressor) 25 mg PO BID [facility] Last Admin: 12/09/17 18:35 Dose: 25 mg Sodium Bicarbonate (Sodium Bicarbonate Tab) 650 mg PO BID [facility] Last Admin: 12/09/17 18:35 Dose: 650 mg Sucralfate (Carafate Oral Susp) 1 gm PO TID [facility] Last Admin: 12/09/17 18:34 Dose: 1 gm - Labs Labs: 12/09/17 06:21 12/09/17 06:22 PT 13.1 SECONDS (9.7-12.2) H 12/09/17 01:33 INR 1.2 12/09/17 01:33 APTT 32 SECONDS (21-34) 12/09/17 01:33 - Constitutional Appears: Non-toxic, In Acute Distress, Chronically Ill - Head Exam Head Exam: ATRAUMATIC, NORMAL INSPECTION, NORMOCEPHALIC - Eye Exam Eye Exam: Normal appearance - ENT Exam ENT Exam: Mucous Membranes Dry (poor dentition) - Neck Exam Additional comments: trach in place- scant amount of dried blood around insertion site - Respiratory Exam Respiratory Exam: NORMAL BREATHING PATTERN - Cardiovascular Exam Cardiovascular Exam: REGULAR RHYTHM - GI/Abdominal Exam GI & Abdominal Exam: Soft. absent: Tenderness Additional comments: anasarca - Extremities Exam Extremities Exam: Pedal Edema (bilaterally) Additional comments: upper extremities with pitting edema RLE groin site dressing with scant dried sanguinous strike through - Neurological Exam Neurological Exam: Awake. absent: Alert, Oriented x3 - Psychiatric Exam Additional comments: non verbal - Skin Skin Exam: Dry, Intact, Pallor. absent: Normal Color Assessment and Plan - Assessment and Plan (Free Text) Assessment: 87M POD#1 s/p IVC filter placement and percutaneous tracheostomy Plan: Suction Q1H Trach care Monitor for bleeding Plan to remove tracheostomy sutures on 12/19 No further surgical intervention at this time Further mgmt as per primary & ICU teams Will DW attending Amelie, PGY-1
[2017-12-10 06:30] LABS: BASO % 0.1 % (0.0-2.0); HEMOGLOBIN 9.3 g/dL (12.0-18.0); LYMPH # 0.7 K/uL (1.0-4.3); LYMPH % 3.7 % (20.0-40.0); MEAN CELL VOLUME 81.1 fL (80.0-94.0); MEAN CORPUSCULAR HGB CONC 33.3 g/dL (33.0-37.0); MEAN PLATELET VOLUME 10.1 fL (7.2-11.7); MONO # 0.6 K/uL (0.0-0.8); MONO % 2.8 % (0.0-10.0); NEUT # 19.1 K/uL (1.8-7.0); NEUT % 93.4 % (50.0-75.0); PLATELET COUNT 214 K/uL (130-400); RBC 3.46 Mil/uL (4.40-5.90); RED CELL DISTRIBUTION WIDTH 17.2 % (11.5-14.5); WHITE BLOOD COUNT 20.4 K/uL (4.8-10.8)
[2017-12-10 06:46] LABS: ALB/GLOB RATIO 1.1 (1.0-2.1); ALBUMIN 2.2 g/dL (3.5-5.0); CALCIUM 7.8 mg/dl (8.6-10.4); MAGNESIUM 1.8 mg/dL (1.6-2.3)
[2017-12-10 08:28] LABS: LYMPHOCYTE 4 % (20-40); MONOCYTE 3 % (0-10); NEUTROPHIL 93 % (50-75); PLATELET ESTIMATE NORMAL (NORMAL); TOTAL CELLS COUNTED 100
[2017-12-10 08:29] LABS: ANISOCYTOSIS SLIGHT
[2017-12-10 08:30] LABS: OVALOCYTES SLIGHT; POLYCHROMIC SLIGHT
[2017-12-10 08:31] LABS: HYPERSEGMENTATION PRESENT
[2017-12-10] MEDS: Sucralfate 1 gm/10 ml Oral Susp UD PO SCH ×3 (09:39→17:52)
[2017-12-10] MEDS: Linezolid 600 mg in D5W 300 ml 600 MG/300 ML BAG IVPB SCH ×2 (09:42→21:52)
--- NOTE | 2017-12-10 10:44 | RAD ---
PROCEDURE: CHEST RADIOGRAPH, 1 VIEW HISTORY: ICU Routine/SP Trach on Vent COMPARISON: Comparison is made with 12/09/2017 FINDINGS: LUNGS: Tracheostomy tube is seen in place. Interval slight improvement in the right lung since the previous exam. PLEURA: Blunting of both costophrenic angles are noted. CARDIOVASCULAR: Normal. OSSEOUS STRUCTURES: No significant abnormalities. VISUALIZED UPPER ABDOMEN: Normal. OTHER FINDINGS: Right-sided jugular central line seen in place. IMPRESSION: Tracheostomy tube seen in place. Interval mild improvement in the lungs since the previous exam.
--- NOTE | 2017-12-10 12:14 | CP.PCM.PN ---
Subjective - Date & Time of Evaluation Date of Evaluation: 12/10/17 Time of Evaluation: 12:12 - Subjective Subjective: Mr. Yoon was seen and examined at the bedside. He opens his eyes spontaneously. He has trach in place, PRVC RR 16, TV 450, PEEP 5, FiO2 40%. He moves his left arm spontaneously but not the right arm and bilateral lower extremities moves as a response to painful stimuli. There was no untoward events overnight. Objective - Vital Signs/Intake and Output Vital Signs (last 24 hours): Temp Pulse Resp BP Pulse Ox 98 F 75 16 104/52 L 100 12/10/17 08:00 12/10/17 11:00 12/10/17 11:00 12/10/17 10:39 12/10/17 11:00 Intake and Output: 12/10/17 12/10/17 06:59 18:59 Intake Total 1100 450 Output Total 825 300 Balance 275 150 - Medications Medications: Current Medications Acetaminophen (Tylenol 650mg/20.3ml Solution Ud) 650 mg PO Q6 PRN PRN Reason: fever Last Admin: 12/07/17 21:00 Dose: 650 mg Albumin Human (Albumin Human 25% (12.5 Gm/50 Ml)) 25 gm IV Q6H [facility] Stop: 12/11/17 06:16 Aspirin (Aspirin Chewable) 81 mg PO DAILY [facility] Last Admin: 12/08/17 09:55 Dose: 81 mg Bisacodyl (Dulcolax) 10 mg IN Q24H PRN PRN Reason: Constipation Bisacodyl (Dulcolax) 10 mg IN HS PRN PRN Reason: Constipation Diltiazem HCl (Cardizem) 60 mg PO Q6 [facility] Last Admin: 12/10/17 05:14 Dose: 60 mg Famotidine (Pepcid) 20 mg IVP DAILY [facility] Last Admin: 12/10/17 09:39 Dose: 20 mg Heparin Sodium (Porcine) (Heparin) 5,000 units SC Q8 [facility] Last Admin: 12/08/17 06:21 Dose: 5,000 units Doxycycline Hyclate 100 mg/ (Sodium Chloride) 100 mls @ 100 mls/hr IVPB Q12H [facility] Last Admin: 12/10/17 00:30 Dose: 100 mls/hr Linezolid (Zyvox 600mg/300ml D5w) 600 mg in 300 mls @ 200 mls/hr IVPB Q12 [facility] Last Admin: 12/10/17 09:42 Dose: 200 mls/hr Aztreonam 1 gm/ Sodium (Chloride) 100 mls @ 100 mls/hr IVPB Q12H [facility] Last Admin: 12/10/17 01:00 Dose: 100 mls/hr Insulin Aspart (Novolog) 0 unit SC Q6 [facility] PRN Reason: Protocol Last Admin: 12/10/17 05:15 Dose: 8 unit Insulin Detemir (Levemir) 10 unit SC HS [facility] Last Admin: 12/09/17 21:00 Dose: 10 unit Latanoprost (Xalatan Opht) 0 ml OD HS [facility] Last Admin: 12/09/17 21:00 Dose: 2.5 ml Metoclopramide HCl (Reglan) 5 mg GT 0600,1130,1630,2200 PRN PRN Reason: Constipation Metoprolol Tartrate (Lopressor) 25 mg PO BID [facility] Last Admin: 12/10/17 09:40 Dose: 25 mg Potassium Chloride (Potassium Chloride Oral Soln) 40 meq PO Q6H [facility] Stop: 12/11/17 00:16 Sennosides (Senokot Tab) 8.6 mg PO DAILY [facility] Sodium Bicarbonate (Sodium Bicarbonate Tab) 650 mg PO BID [facility] Last Admin: 12/10/17 09:39 Dose: 650 mg Sucralfate (Carafate Oral Susp) 1 gm PO TID [facility] Last Admin: 12/10/17 09:39 Dose: 1 gm - Labs Labs: 12/10/17 06:21 12/10/17 06:21 PT 13.1 SECONDS (9.7-12.2) H 12/09/17 01:33 INR 1.2 12/09/17 01:33 APTT 32 SECONDS (21-34) 12/09/17 01:33 - Constitutional Appears: No Acute Distress - Head Exam Head Exam: NORMAL INSPECTION - Neurological Exam Neurological Exam: Awake Neuro motor strength exam: Left Upper Extremity: 2/1, Right Upper Extremity: 0, Left Lower Extremity: 0, Right Lower Extremity: 0 Additional comments: awake, but unable to follow commands, moves left arm spontaneously, bilateral lower extremities with noxious stimuli. Assessment and Plan (1) Sepsis Assessment & Plan: Case discussed with Dr. Mosher, continue all current medical regimen. Recommend treat any underlying infection and electrolyte abnormalities. Status: Acute
--- NOTE | 2017-12-10 12:20 | CP.PCM.PN ---
Subjective - Date & Time of Evaluation Date of Evaluation: 12/10/17 Time of Evaluation: 12:17 - Subjective Subjective: Patient seen and examined at bedside. As per nursing no acute events overnight. FiO2 40%on tach collar. tolerating CPAP. Objective - Vital Signs/Intake and Output Vital Signs (last 24 hours): Temp Pulse Resp BP Pulse Ox 98 F 75 16 104/52 L 100 12/10/17 08:00 12/10/17 11:00 12/10/17 11:00 12/10/17 10:39 12/10/17 11:00 Intake and Output: 12/10/17 12/10/17 06:59 18:59 Intake Total 1100 450 Output Total 825 300 Balance 275 150 - Medications Medications: Current Medications Acetaminophen (Tylenol 650mg/20.3ml Solution Ud) 650 mg PO Q6 PRN PRN Reason: fever Last Admin: 12/07/17 21:00 Dose: 650 mg Albumin Human (Albumin Human 25% (12.5 Gm/50 Ml)) 25 gm IV Q6H [facility] Stop: 12/11/17 06:16 Aspirin (Aspirin Chewable) 81 mg PO DAILY [facility] Last Admin: 12/08/17 09:55 Dose: 81 mg Bisacodyl (Dulcolax) 10 mg [place] Q24H PRN PRN Reason: Constipation Bisacodyl (Dulcolax) 10 mg [place] HS PRN PRN Reason: Constipation Diltiazem HCl (Cardizem) 60 mg PO Q6 [facility] Last Admin: 12/10/17 05:14 Dose: 60 mg Famotidine (Pepcid) 20 mg IVP DAILY [facility] Last Admin: 12/10/17 09:39 Dose: 20 mg Heparin Sodium (Porcine) (Heparin) 5,000 units SC Q8 [facility] Last Admin: 12/08/17 06:21 Dose: 5,000 units Doxycycline Hyclate 100 mg/ (Sodium Chloride) 100 mls @ 100 mls/hr IVPB Q12H [facility] Last Admin: 12/10/17 00:30 Dose: 100 mls/hr Linezolid (Zyvox 600mg/300ml D5w) 600 mg in 300 mls @ 200 mls/hr IVPB Q12 [facility] Last Admin: 12/10/17 09:42 Dose: 200 mls/hr Aztreonam 1 gm/ Sodium (Chloride) 100 mls @ 100 mls/hr IVPB Q12H [facility] Last Admin: 12/10/17 01:00 Dose: 100 mls/hr Potassium Chloride (Potassium Chloride 10 Meq/100 Ml) 10 meq in 100 mls @ 100 mls/hr IVPB Q1H [facility] Stop: 12/10/17 14:14 Metronidazole (Flagyl) 500 mg in 100 mls @ 100 mls/hr IVPB Q8 [facility] Insulin Aspart (Novolog) 0 unit SC Q6 [facility] PRN Reason: Protocol Last Admin: 12/10/17 05:15 Dose: 8 unit Insulin Detemir (Levemir) 10 unit SC HS [facility] Last Admin: 12/09/17 21:00 Dose: 10 unit Latanoprost (Xalatan Opht) 0 ml OD HS [facility] Last Admin: 12/09/17 21:00 Dose: 2.5 ml Metoclopramide HCl (Reglan) 5 mg GT 0600,1130,1630,2200 PRN PRN Reason: Constipation Metoprolol Tartrate (Lopressor) 25 mg PO BID [facility] Last Admin: 12/10/17 09:40 Dose: 25 mg Potassium Chloride (Potassium Chloride Oral Soln) 40 meq PO Q6H [facility] Stop: 12/11/17 00:16 Sennosides (Senokot Tab) 8.6 mg PO DAILY [facility] Sodium Bicarbonate (Sodium Bicarbonate Tab) 650 mg PO BID [facility] Last Admin: 12/10/17 09:39 Dose: 650 mg Sucralfate (Carafate Oral Susp) 1 gm PO TID [facility] Last Admin: 12/10/17 09:39 Dose: 1 gm - Labs Labs: 12/10/17 06:21 12/10/17 06:21 PT 13.1 SECONDS (9.7-12.2) H 12/09/17 01:33 INR 1.2 12/09/17 01:33 APTT 32 SECONDS (21-34) 12/09/17 01:33 Assessment and Plan - Assessment and Plan (Free Text) Plan: -Respiratory failure: s/p trach, monitor FiO2 45%, CPAP trials daily -Acute blood loss anemia:hb stable off AC -DVT:not a candidate for Anticogulation, s/p IVC -sepsis: continue empriical abx, f/u cultures, ID follow up -SIMON: improving, cr 2.0 -CAD/NSTEMI/A-flutter:HR controlled, continue rx as per cardiology -continue dvt/pud: SCD/PPI -continue peg tube feeds -hold dilaudid as patient had apnea during CPAP -Patient remains hemodynamically stable -Anasarca: continue PEg tube feeds, add albumin as patient has hypernatremia Patient remains hemodynamically stable for LTAC. Continue CPAP daily
[2017-12-10] MEDS: Multiple Vitamins Oral Solution PO SCH (13:47)
[2017-12-10] MEDS: Potassium Chloride 20 mEq/15 ml LIQ UD PO SCH ×3 (13:47→23:30)
[2017-12-10] MEDS: Albumin Human 25% (12.5 gm/50 ml) IV SCH ×3 (13:48→23:25)
--- NOTE | 2017-12-10 14:06 | CP.PCM.PN ---
Subjective - Date & Time of Evaluation Date of Evaluation: 12/10/17 Time of Evaluation: 15:40 - Subjective Subjective: clinically same Objective - Vital Signs/Intake and Output Vital Signs (last 24 hours): Temp Pulse Resp BP Pulse Ox 98 F 65 20 119/48 L 100 12/10/17 08:00 12/10/17 13:39 12/10/17 13:39 12/10/17 13:39 12/10/17 13:39 Intake and Output: 12/10/17 12/10/17 06:59 18:59 Intake Total 1100 700 Output Total 825 450 Balance 275 250 - Medications Medications: Current Medications Acetaminophen (Tylenol 650mg/20.3ml Solution Ud) 650 mg PO Q6 PRN PRN Reason: fever Last Admin: 12/07/17 21:00 Dose: 650 mg Albumin Human (Albumin Human 25% (12.5 Gm/50 Ml)) 25 gm IV Q6H [facility] Stop: 12/11/17 06:16 Last Admin: 12/10/17 13:48 Dose: 25 gm Ascorbic Acid (Vitamin C 500 Mg Tab) 500 mg GT DAILY [facility] Aspirin (Aspirin Chewable) 81 mg PO DAILY [facility] Last Admin: 12/08/17 09:55 Dose: 81 mg Bisacodyl (Dulcolax) 10 mg [place] Q24H PRN PRN Reason: Constipation Bisacodyl (Dulcolax) 10 mg [place] HS PRN PRN Reason: Constipation Diltiazem HCl (Cardizem) 60 mg PO Q6 [facility] Last Admin: 12/10/17 12:20 Dose: 60 mg Famotidine (Pepcid) 20 mg IVP DAILY [facility] Last Admin: 12/10/17 09:39 Dose: 20 mg Heparin Sodium (Porcine) (Heparin) 5,000 units SC Q8 [facility] Last Admin: 12/08/17 06:21 Dose: 5,000 units Doxycycline Hyclate 100 mg/ (Sodium Chloride) 100 mls @ 100 mls/hr IVPB Q12H [facility] Last Admin: 12/10/17 12:21 Dose: 100 mls/hr Linezolid (Zyvox 600mg/300ml D5w) 600 mg in 300 mls @ 200 mls/hr IVPB Q12 [facility] Last Admin: 12/10/17 09:42 Dose: 200 mls/hr Aztreonam 1 gm/ Sodium (Chloride) 100 mls @ 100 mls/hr IVPB Q12H [facility] Last Admin: 12/10/17 12:21 Dose: 100 mls/hr Metronidazole (Flagyl) 500 mg in 100 mls @ 100 mls/hr IVPB Q8 [facility] Potassium Chloride (Potassium Chloride 20 Meq/100 Ml) 20 meq in 100 mls @ 100 mls/hr IVPB Q1H [facility] Stop: 12/10/17 14:44 Last Admin: 12/10/17 13:53 Dose: 100 mls/hr Insulin Aspart (Novolog) 0 unit SC Q6 [facility]NA PRN Reason: Protocol Last Admin: 12/10/17 12:20 Dose: 4 unit Insulin Detemir (Levemir) 10 unit SC HS [facility] Last Admin: 12/09/17 21:00 Dose: 10 unit Latanoprost (Xalatan Opht) 0 ml OD HS [facility] Last Admin: 12/09/17 21:00 Dose: 2.5 ml Metoclopramide HCl (Reglan) 5 mg GT 0600,1130,1630,2200 PRN PRN Reason: Constipation Metoprolol Tartrate (Lopressor) 25 mg PO BID [facility] Last Admin: 12/10/17 09:40 Dose: 25 mg Multivitamins/Vitamin C (Multi-Delyn Liquid) 5 ml PO DAILY [facility] Last Admin: 12/10/17 13:47 Dose: 5 ml Potassium Chloride (Potassium Chloride Oral Soln) 40 meq PO Q6H [facility] Stop: 12/11/17 00:16 Last Admin: 12/10/17 13:47 Dose: 40 meq Sennosides (Senokot Tab) 8.6 mg PO DAILY [facility] Sodium Bicarbonate (Sodium Bicarbonate Tab) 650 mg PO BID [facility] Last Admin: 12/10/17 09:39 Dose: 650 mg Sucralfate (Carafate Oral Susp) 1 gm PO TID [facility] Last Admin: 12/10/17 09:39 Dose: 1 gm - Labs Labs: 12/10/17 06:21 12/10/17 06:21 PT 13.1 SECONDS (9.7-12.2) H 12/09/17 01:33 INR 1.2 12/09/17 01:33 APTT 32 SECONDS (21-34) 12/09/17 01:33 - Constitutional Appears: Well - Head Exam Head Exam: ATRAUMATIC, NORMAL INSPECTION, NORMOCEPHALIC - Eye Exam Eye Exam: EOMI, Normal appearance, PERRL Pupil Exam: NORMAL ACCOMODATION, PERRL - ENT Exam ENT Exam: Mucous Membranes Moist, Normal Exam - Neck Exam Neck Exam: Full ROM, Normal Inspection. absent: Lymphadenopathy - Respiratory Exam Respiratory Exam: Decreased Breath Sounds - Cardiovascular Exam Cardiovascular Exam: REGULAR RHYTHM, +S1, +S2 - GI/Abdominal Exam GI & Abdominal Exam: Soft, Diminished Bowel Sounds - Rectal Exam Rectal Exam: Deferred Assessment and Plan (1) Bandemia Status: Acute (2) Dyspnea Status: Acute (3) Fever Status: Acute (4) Lethargy Status: Acute (5) Sepsis Status: Acute (6) Contusion Status: Acute (7) Fall Status: Acute
[2017-12-10] MEDS: metroNIDAZOLE IV 500 mg/100 ml 500 MG/100 ML BAG IVPB SCH ×2 (16:12→21:32)
--- NOTE | 2017-12-10 17:00 | CP.PCM.PN ---
Subjective - Date & Time of Evaluation Date of Evaluation: 12/10/17 Time of Evaluation: 17:00 Objective - Vital Signs/Intake and Output Vital Signs (last 24 hours): Temp Pulse Resp BP Pulse Ox 98.1 F 81 23 111/54 L 99 12/10/17 12:00 12/10/17 16:00 12/10/17 16:00 12/10/17 15:40 12/10/17 16:00 Intake and Output: 12/10/17 12/10/17 06:59 18:59 Intake Total 1100 1050 Output Total 825 700 Balance 275 350 - Medications Medications: Current Medications Acetaminophen (Tylenol 650mg/20.3ml Solution Ud) 650 mg PO Q6 PRN PRN Reason: fever Last Admin: 12/07/17 21:00 Dose: 650 mg Albumin Human (Albumin Human 25% (12.5 Gm/50 Ml)) 25 gm IV Q6H [facility] Stop: 12/11/17 06:16 Last Admin: 12/10/17 13:48 Dose: 25 gm Ascorbic Acid (Vitamin C 500 Mg Tab) 500 mg GT DAILY [facility] Aspirin (Aspirin Chewable) 81 mg PO DAILY [facility] Last Admin: 12/08/17 09:55 Dose: 81 mg Bisacodyl (Dulcolax) 10 mg [place] Q24H PRN PRN Reason: Constipation Bisacodyl (Dulcolax) 10 mg [place] HS PRN PRN Reason: Constipation Diltiazem HCl (Cardizem) 60 mg PO Q6 [facility] Last Admin: 12/10/17 12:20 Dose: 60 mg Famotidine (Pepcid) 20 mg IVP DAILY [facility] Last Admin: 12/10/17 09:39 Dose: 20 mg Heparin Sodium (Porcine) (Heparin) 5,000 units SC Q8 [facility] Last Admin: 12/08/17 06:21 Dose: 5,000 units Doxycycline Hyclate 100 mg/ (Sodium Chloride) 100 mls @ 100 mls/hr IVPB Q12H [facility] Last Admin: 12/10/17 12:21 Dose: 100 mls/hr Linezolid (Zyvox 600mg/300ml D5w) 600 mg in 300 mls @ 200 mls/hr IVPB Q12 [facility] Last Admin: 12/10/17 09:42 Dose: 200 mls/hr Aztreonam 1 gm/ Sodium (Chloride) 100 mls @ 100 mls/hr IVPB Q12H [facility] Last Admin: 12/10/17 12:21 Dose: 100 mls/hr Metronidazole (Flagyl) 500 mg in 100 mls @ 100 mls/hr IVPB Q8 [facility] Last Admin: 12/10/17 16:12 Dose: 100 mls/hr Insulin Aspart (Novolog) 0 unit SC Q6 ANA PRN Reason: Protocol Last Admin: 12/10/17 12:20 Dose: 4 unit Insulin Detemir (Levemir) 10 unit SC HS [facility] Last Admin: 12/09/17 21:00 Dose: 10 unit Latanoprost (Xalatan Opht) 0 ml OD HS [facility] Last Admin: 12/09/17 21:00 Dose: 2.5 ml Metoclopramide HCl (Reglan) 5 mg GT 0600,1130,1630,2200 PRN PRN Reason: Constipation Metoprolol Tartrate (Lopressor) 25 mg PO BID [facility] Last Admin: 12/10/17 09:40 Dose: 25 mg Multivitamins/Vitamin C (Multi-Delyn Liquid) 5 ml PO DAILY [facility] Last Admin: 12/10/17 13:47 Dose: 5 ml Potassium Chloride (Potassium Chloride Oral Soln) 40 meq PO Q6H [facility] Stop: 12/11/17 00:16 Last Admin: 12/10/17 13:47 Dose: 40 meq Sennosides (Senokot Tab) 8.6 mg PO DAILY [facility] Sodium Bicarbonate (Sodium Bicarbonate Tab) 650 mg PO BID [facility] Last Admin: 12/10/17 09:39 Dose: 650 mg Sucralfate (Carafate Oral Susp) 1 gm PO TID [facility] Last Admin: 12/10/17 16:12 Dose: 1 gm - Labs Labs: 12/10/17 06:21 12/10/17 06:21 PT 13.1 SECONDS (9.7-12.2) H 12/09/17 01:33 INR 1.2 12/09/17 01:33 APTT 32 SECONDS (21-34) 12/09/17 01:33
--- NOTE | 2017-12-10 17:30 | CP.PCM.PN ---
Subjective - Date & Time of Evaluation Date of Evaluation: 12/10/17 Time of Evaluation: 08:00 - Subjective Subjective: As per nursing no acute events overnight. FiO2 40%on tach collar. tolerating CPAP. WBC TRENDING UP WILL RECULTURE Objective - Vital Signs/Intake and Output Vital Signs (last 24 hours): Temp Pulse Resp BP Pulse Ox 98.1 F 81 23 111/54 L 99 12/10/17 12:00 12/10/17 16:00 12/10/17 16:00 12/10/17 15:40 12/10/17 16:00 Intake and Output: 12/10/17 12/10/17 06:59 18:59 Intake Total 1100 1050 Output Total 825 700 Balance 275 350 - Medications Medications: Current Medications Acetaminophen (Tylenol 650mg/20.3ml Solution Ud) 650 mg PO Q6 PRN PRN Reason: fever Last Admin: 12/07/17 21:00 Dose: 650 mg Albumin Human (Albumin Human 25% (12.5 Gm/50 Ml)) 25 gm IV Q6H [facility] Stop: 12/11/17 06:16 Last Admin: 12/10/17 13:48 Dose: 25 gm Ascorbic Acid (Vitamin C 500 Mg Tab) 500 mg GT DAILY [facility] Aspirin (Aspirin Chewable) 81 mg PO DAILY [facility] Last Admin: 12/08/17 09:55 Dose: 81 mg Bisacodyl (Dulcolax) 10 mg [place] Q24H PRN PRN Reason: Constipation Bisacodyl (Dulcolax) 10 mg [place] HS PRN PRN Reason: Constipation Diltiazem HCl (Cardizem) 60 mg PO Q6 [facility] Last Admin: 12/10/17 12:20 Dose: 60 mg Famotidine (Pepcid) 20 mg IVP DAILY [facility] Last Admin: 12/10/17 09:39 Dose: 20 mg Heparin Sodium (Porcine) (Heparin) 5,000 units SC Q8 [facility] Last Admin: 12/08/17 06:21 Dose: 5,000 units Doxycycline Hyclate 100 mg/ (Sodium Chloride) 100 mls @ 100 mls/hr IVPB Q12H [facility] Last Admin: 12/10/17 12:21 Dose: 100 mls/hr Linezolid (Zyvox 600mg/300ml D5w) 600 mg in 300 mls @ 200 mls/hr IVPB Q12 [facility] Last Admin: 12/10/17 09:42 Dose: 200 mls/hr Aztreonam 1 gm/ Sodium (Chloride) 100 mls @ 100 mls/hr IVPB Q12H [facility] Last Admin: 12/10/17 12:21 Dose: 100 mls/hr Metronidazole (Flagyl) 500 mg in 100 mls @ 100 mls/hr IVPB Q8 [facility] Last Admin: 12/10/17 16:12 Dose: 100 mls/hr Insulin Aspart (Novolog) 0 unit SC Q6 [facility] PRN Reason: Protocol Last Admin: 12/10/17 12:20 Dose: 4 unit Insulin Detemir (Levemir) 10 unit SC HS [facility] Last Admin: 12/09/17 21:00 Dose: 10 unit Latanoprost (Xalatan Opht) 0 ml OD HS [facility] Last Admin: 12/09/17 21:00 Dose: 2.5 ml Metoclopramide HCl (Reglan) 5 mg GT 0600,1130,1630,2200 PRN PRN Reason: Constipation Metoprolol Tartrate (Lopressor) 25 mg PO BID [facility] Last Admin: 12/10/17 09:40 Dose: 25 mg Multivitamins/Vitamin C (Multi-Delyn Liquid) 5 ml PO DAILY [facility] Last Admin: 12/10/17 13:47 Dose: 5 ml Potassium Chloride (Potassium Chloride Oral Soln) 40 meq PO Q6H [facility] Stop: 12/11/17 00:16 Last Admin: 12/10/17 13:47 Dose: 40 meq Sennosides (Senokot Tab) 8.6 mg PO DAILY [facility] Sodium Bicarbonate (Sodium Bicarbonate Tab) 650 mg PO BID [facility] Last Admin: 12/10/17 09:39 Dose: 650 mg Sucralfate (Carafate Oral Susp) 1 gm PO TID [facility] Last Admin: 12/10/17 16:12 Dose: 1 gm - Labs Labs: 12/10/17 06:21 12/10/17 06:21 PT 13.1 SECONDS (9.7-12.2) H 12/09/17 01:33 INR 1.2 12/09/17 01:33 APTT 32 SECONDS (21-34) 12/09/17 01:33 Assessment and Plan (1) Respiratory failure Status: Acute (2) Pneumonia Status: Acute (3) Bandemia Status: Acute (4) Fever Status: Acute (5) Lethargy Status: Acute (6) Sepsis Status: Acute (7) Respiratory failure Status: Acute (8) Pneumonia Status: Acute
[2017-12-10] MEDS: Insulin Detemir 100 units/ml Vial (Levemir) SC SCH (21:32)
[2017-12-10] MEDS: Latanoprost 2.5 ml Opht Soln OD SCH (21:36)
[2017-12-11] MEDS: Aztreonam 1 GM in Sodium Chloride 0.9% 100 ML IVPB SCH ×2 (00:31→13:36)
[2017-12-11] MEDS: (Novolog) Insulin Aspart, Recombinant 100 u/ml 10 ml vial SC SCH ×4 (00:51→18:30)
[2017-12-11 05:35] LABS: ABG ALLEN TEST POS; ARTERIAL BLOOD GAS HCO3 24.3 mmol/L (21-28); ARTERIAL BLOOD GAS O2 SAT 98.9 % (95-98); ARTERIAL BLOOD GAS PCO2 27 mm/Hg (35-45); ARTERIAL BLOOD GAS PO2 98 mm/Hg (80-100); ARTERIAL BLOOD GAS TCO2 21.9 mmol/L (22-28)
[2017-12-11] MEDS: Albumin Human 25% (12.5 gm/50 ml) IV SCH (05:35)
[2017-12-11] MEDS: metroNIDAZOLE IV 500 mg/100 ml 500 MG/100 ML BAG IVPB SCH ×3 (05:36→21:00)
[2017-12-11 06:30] LABS: BASO % 0.1 % (0.0-2.0); EOS % 0.1 % (0.0-4.0); HEMOGLOBIN 7.4 g/dL (12.0-18.0); LYMPH # 0.7 K/uL (1.0-4.3); MEAN CELL VOLUME 81.5 fL (80.0-94.0); MEAN CORPUSCULAR HEMOGLOBIN 27.1 pg (27.0-31.0); MEAN CORPUSCULAR HGB CONC 33.2 g/dL (33.0-37.0); MEAN PLATELET VOLUME 9.9 fL (7.2-11.7); MONO # 0.6 K/uL (0.0-0.8); MONO % 3.9 % (0.0-10.0); NEUT % 90.9 % (50.0-75.0); NRBC % 0.1 % (0.0-2.0); PLATELET COUNT 175 K/uL (130-400); RBC 2.73 Mil/uL (4.40-5.90); WHITE BLOOD COUNT 14.3 K/uL (4.8-10.8)
[2017-12-11 06:44] LABS: ALB/GLOB RATIO 1.3 (1.0-2.1); ALBUMIN 2.4 g/dL (3.5-5.0); CALCIUM 7.6 mg/dl (8.6-10.4); MAGNESIUM 1.7 mg/dL (1.6-2.3)
--- NOTE | 2017-12-11 07:14 | CP.PCM.PN ---
Subjective - Date & Time of Evaluation Date of Evaluation: 12/11/17 Time of Evaluation: 07:10 - Subjective Subjective: Mr. Yoon was seen and examined at the bedside in the ICU. He opens his eyes spontaneously, non-verbal, with trach connected to a mechanical ventilator on CPAP5 PS 10 Fi02 30%;RR 18-20;sat 100%;spontaneous Vt 460-590. He moves his left upper extremity spontaneously with hand mitten for patient safety. His right upper extremity remains flaccid with bilateral lower extremities moves in response to noxious stimuli. There was no untoward events overnight. Objective - Vital Signs/Intake and Output Vital Signs (last 24 hours): Temp Pulse Resp BP Pulse Ox 98.8 F 104 H 19 119/68 100 12/11/17 04:00 12/11/17 06:03 12/11/17 06:03 12/11/17 06:03 12/11/17 06:03 Intake and Output: 12/11/17 12/11/17 06:59 18:59 Intake Total 1740 Output Total 1135 Balance 605 - Medications Medications: Current Medications Acetaminophen (Tylenol 650mg/20.3ml Solution Ud) 650 mg PO Q6 PRN PRN Reason: fever Last Admin: 12/07/17 21:00 Dose: 650 mg Ascorbic Acid (Vitamin C 500 Mg Tab) 500 mg GT DAILY [facility] Aspirin (Aspirin Chewable) 81 mg PO DAILY [facility] Last Admin: 12/08/17 09:55 Dose: 81 mg Bisacodyl (Dulcolax) 10 mg [place] Q24H PRN PRN Reason: Constipation Bisacodyl (Dulcolax) 10 mg [place] HS PRN PRN Reason: Constipation Diltiazem HCl (Cardizem) 60 mg PO Q6 [facility] Last Admin: 12/11/17 05:33 Dose: 60 mg Famotidine (Pepcid) 20 mg IVP DAILY [facility] Last Admin: 12/10/17 09:39 Dose: 20 mg Heparin Sodium (Porcine) (Heparin) 5,000 units SC Q8 [facility] Last Admin: 12/08/17 06:21 Dose: 5,000 units Doxycycline Hyclate 100 mg/ (Sodium Chloride) 100 mls @ 100 mls/hr IVPB Q12H [facility] Last Admin: 12/10/17 23:31 Dose: 100 mls/hr Linezolid (Zyvox 600mg/300ml D5w) 600 mg in 300 mls @ 200 mls/hr IVPB Q12 [facility] Last Admin: 12/10/17 21:52 Dose: 200 mls/hr Aztreonam 1 gm/ Sodium (Chloride) 100 mls @ 100 mls/hr IVPB Q12H [facility] Last Admin: 12/11/17 00:31 Dose: 100 mls/hr Metronidazole (Flagyl) 500 mg in 100 mls @ 100 mls/hr IVPB Q8 [facility] Last Admin: 12/11/17 05:36 Dose: 100 mls/hr Insulin Aspart (Novolog) 0 unit SC Q6 [facility] PRN Reason: Protocol Last Admin: 12/11/17 05:34 Dose: 4 unit Insulin Detemir (Levemir) 10 unit SC HS [facility] Last Admin: 12/10/17 21:32 Dose: 10 unit Latanoprost (Xalatan Opht) 0 ml OD HS [facility] Last Admin: 12/10/17 21:36 Dose: 2.5 ml Metoclopramide HCl (Reglan) 5 mg GT 0600,1130,1630,2200 PRN PRN Reason: Constipation Metoprolol Tartrate (Lopressor) 25 mg PO BID [facility] Last Admin: 12/10/17 17:40 Dose: 25 mg Multivitamins/Vitamin C (Multi-Delyn Liquid) 5 ml PO DAILY [facility] Last Admin: 12/10/17 13:47 Dose: 5 ml Sennosides (Senokot Tab) 8.6 mg PO DAILY [facility] Sodium Bicarbonate (Sodium Bicarbonate Tab) 650 mg PO BID [facility] Last Admin: 12/10/17 17:40 Dose: 650 mg Sucralfate (Carafate Oral Susp) 1 gm PO TID [facility] Last Admin: 12/10/17 17:52 Dose: Not Given - Labs Labs: 12/11/17 06:17 12/11/17 06:13 PT 13.1 SECONDS (9.7-12.2) H 12/09/17 01:33 INR 1.2 12/09/17 01:33 APTT 32 SECONDS (21-34) 12/09/17 01:33 - Constitutional Appears: No Acute Distress - Head Exam Head Exam: NORMAL INSPECTION - Neurological Exam Neurological Exam: Awake Neuro motor strength exam: Left Upper Extremity: 2/1, Right Upper Extremity: 0, Left Lower Extremity: 0, Right Lower Extremity: 0 Additional comments: He opens his eyes spontaneously, moves left upper extremity. Assessment and Plan (1) Sepsis Assessment & Plan: Case discussed with Dr. Patricio, continue all current medical regimen. Recommend to treat infection and any electrolyte abnormalities. Recommend to repeat CT of the head without contrast. Status: Acute
[2017-12-11] MEDS ORDERED: Potassium Chloride 20 mEq ER Tab PO ONE (07:59)
--- NOTE | 2017-12-11 08:29 | RAD ---
HISTORY: effusion COMPARISON: 12/10/2017 at 7:05 a.m. FINDINGS: LUNGS: No active pulmonary disease. PLEURA: Bilateral pleural effusion, grossly unchanged. No pneumothorax. CARDIOVASCULAR: Tracheostomy and right internal jugular central venous catheter are unchanged. Grossly normal heart size. No congestive change. OSSEOUS STRUCTURES: No significant abnormalities. VISUALIZED UPPER ABDOMEN: Normal. OTHER FINDINGS: None. IMPRESSION: Bilateral small pleural effusion. No significant interval change
[2017-12-11 08:33] LABS: BANDS 1 % (0-2); LYMPHOCYTE 1 % (20-40); MONOCYTE 3 % (0-10); NEUTROPHIL 95 % (50-75); TOTAL CELLS COUNTED 100
[2017-12-11 08:34] LABS: ANISOCYTOSIS SLIGHT; HYPOCHROMIC SLIGHT; LARGE PLATELETS PRESENT; PLATELET ESTIMATE NORMAL (NORMAL)
[2017-12-11] MEDS: Multiple Vitamins Oral Solution PO SCH (09:04)
[2017-12-11] MEDS: Sucralfate 1 gm/10 ml Oral Susp UD PO SCH ×3 (09:04→17:17)
[2017-12-11] MEDS: Linezolid 600 mg in D5W 300 ml 600 MG/300 ML BAG IVPB SCH ×2 (09:06→22:00)
--- NOTE | 2017-12-11 10:35 | CT ---
PROCEDURE: CT HEAD WITHOUT CONTRAST. HISTORY: right upper extremity flaccid COMPARISON: None available. TECHNIQUE: Axial computed tomography images were obtained through the head/brain without intravenous contrast. Radiation dose: Total exam DLP = 1221.18 mGy-cm. This CT exam was performed using one or more of the following dose reduction techniques: Automated exposure control, adjustment of the mA and/or kV according to patient size, and/or use of iterative reconstruction technique. FINDINGS: HEMORRHAGE: No intracranial hemorrhage. BRAIN: No intracranial mass. Diffuse atrophy with widening of the subarachnoid space. No discrete extra-axial fluid collection. VENTRICLES: No hydrocephalus. Right parietal ventriculostomy catheter entering through right atrium terminating in anterior right lateral ventricle. CALVARIUM: Unremarkable. PARANASAL SINUSES: Unremarkable as visualized. No significant inflammatory changes. MASTOID AIR CELLS: Bilateral nonspecific mastoid effusion. Small amount of fluid/ soft tissue density in right middle ear cavity. Please correlate clinically for otitis media. OTHER FINDINGS: None. IMPRESSION: Diffuse atrophy. Right ventriculostomy catheter. No hydrocephalus. No intracranial mass, hemorrhage or evidence of acute infarct. Bilateral nonspecific mastoid effusion with small amount of fluid/soft tissue density in right middle ear cavity common nonspecific.
--- NOTE | 2017-12-11 10:39 | CP.PCM.PN ---
Subjective - Date & Time of Evaluation Date of Evaluation: 12/11/17 Time of Evaluation: 10:37 - Subjective Subjective: s/p CT head now rmains with trach, on vent renal function stable, creat decreased, still pre-renal UO adequate K being replaced nonverbal, swollen as before, right side now flaccid Hg dropped- etiology unclear Objective - Vital Signs/Intake and Output Vital Signs (last 24 hours): Temp Pulse Resp BP Pulse Ox 98.2 F 89 28 H 113/54 L 100 12/11/17 09:00 12/11/17 07:03 12/11/17 07:03 12/11/17 09:04 12/11/17 07:03 Intake and Output: 12/11/17 12/11/17 06:59 18:59 Intake Total 1740 Output Total 1135 Balance 605 - Medications Medications: Current Medications Acetaminophen (Tylenol 650mg/20.3ml Solution Ud) 650 mg PO Q6 PRN PRN Reason: fever Last Admin: 12/07/17 21:00 Dose: 650 mg Ascorbic Acid (Vitamin C 500 Mg Tab) 500 mg GT DAILY [facility] Last Admin: 12/11/17 09:04 Dose: 500 mg Aspirin (Aspirin Chewable) 81 mg PO DAILY [facility] Last Admin: 12/08/17 09:55 Dose: 81 mg Bisacodyl (Dulcolax) [address] Q24H PRN PRN Reason: Constipation Bisacodyl (Dulcolax) [address] HS PRN PRN Reason: Constipation Diltiazem HCl (Cardizem) 60 mg PO Q6 [facility] Last Admin: 12/11/17 05:33 Dose: 60 mg Famotidine (Pepcid) 20 mg IVP DAILY [facility] Last Admin: 12/11/17 09:04 Dose: 20 mg Heparin Sodium (Porcine) (Heparin) 5,000 units SC Q8 [facility] Last Admin: 12/08/17 06:21 Dose: 5,000 units Doxycycline Hyclate 100 mg/ (Sodium Chloride) 100 mls @ 100 mls/hr IVPB Q12H [facility] Last Admin: 12/10/17 23:31 Dose: 100 mls/hr Linezolid (Zyvox 600mg/300ml D5w) 600 mg in 300 mls @ 200 mls/hr IVPB Q12 [facility] Last Admin: 12/11/17 09:06 Dose: 200 mls/hr Aztreonam 1 gm/ Sodium (Chloride) 100 mls @ 100 mls/hr IVPB Q12H [facility] Last Admin: 12/11/17 00:31 Dose: 100 mls/hr Metronidazole (Flagyl) 500 mg in 100 mls @ 100 mls/hr IVPB Q8 [facility] Last Admin: 12/11/17 05:36 Dose: 100 mls/hr Insulin Aspart (Novolog) 0 unit SC Q6 [facility] PRN Reason: Protocol Last Admin: 12/11/17 05:34 Dose: 4 unit Insulin Detemir (Levemir) 10 unit SC HS [facility] Last Admin: 12/10/17 21:32 Dose: 10 unit Latanoprost (Xalatan Opht) 0 ml OD HS [facility] Last Admin: 12/10/17 21:36 Dose: 2.5 ml Metoclopramide HCl (Reglan) 5 mg GT 0600,1130,1630,2200 PRN PRN Reason: Constipation Metoprolol Tartrate (Lopressor) 25 mg PO BID [facility] Last Admin: 12/11/17 09:04 Dose: 25 mg Multivitamins/Vitamin C (Multi-Delyn Liquid) 5 ml PO DAILY [facility] Last Admin: 12/11/17 09:04 Dose: 5 ml Sennosides (Senokot Tab) 8.6 mg PO DAILY [facility] Last Admin: 12/11/17 09:04 Dose: 8.6 mg Sodium Bicarbonate (Sodium Bicarbonate Tab) 650 mg PO BID [facility] Last Admin: 12/11/17 09:04 Dose: 650 mg Sucralfate (Carafate Oral Susp) 1 gm PO TID [facility] Last Admin: 12/11/17 09:04 Dose: 1 gm - Labs Labs: 12/11/17 06:17 12/11/17 06:13 PT 13.1 SECONDS (9.7-12.2) H 12/09/17 01:33 INR 1.2 12/09/17 01:33 APTT 32 SECONDS (21-34) 12/09/17 01:33 - Constitutional Appears: Confused, Chronically Ill - Head Exam Head Exam: ATRAUMATIC, NORMAL INSPECTION - Neck Exam Neck Exam: Normal Inspection. absent: Tenderness - Respiratory Exam Respiratory Exam: Rhonchi, Respiratory Distress - Cardiovascular Exam Cardiovascular Exam: REGULAR RHYTHM, +S1 - GI/Abdominal Exam GI & Abdominal Exam: Soft. absent: Tenderness - Extremities Exam Extremities Exam: Pedal Edema. absent: Tenderness - Neurological Exam Neurological Exam: Altered, Motor Sensory Deficit - Skin Skin Exam: Dry, Warm Assessment and Plan (1) Pneumonia Status: Acute (2) Pneumonia Status: Acute (3) Sepsis Status: Acute - Assessment and Plan (Free Text) Plan: Replete lytes as needed if hypernateemia increases, can increase free water/ prn diuretics
--- NOTE | 2017-12-11 11:20 | CP.CCUPN ---
<Jas Rockwell - Last Filed: 12/11/17 17:28> CCU Subjective - Physician Review Events Since Last Encounter (Free Text): 12/11/17 11:19 Patient seen and examined in bedside. Per nursing no acute events occurred overnight. Subjective (Free Text): 12/06/17 11:39 Patient seen and examined at bedside this A.M. Per nursing no acute events overnight. Patient scheduled for HD 11/23/17. 12/08/17 12:08 Critical Care Time Spent (in minutes): 40 CCU Objective - Vital Signs / Intake & Output Vital Signs (Last 4 hours): Vital Signs Temp BP 12/11/17 09:04 113/54 L 12/11/17 09:00 98.2 F Intake and Output (Last 8hrs): Intake & Output 12/10/17 12/11/17 12/11/17 22:59 06:59 14:59 Intake Total 950 1140 Output Total 560 825 Balance 390 315 Weight 205 lb 8 oz Intake: Intake, IV Amount 550 500 Right Medial Port 550 500 Internal Jugular Tube Feeding 400 400 Other 240 Output: Urine 560 825 Urethral (Morgan) 560 825 Other: # Bowel Movements 1 1 - Physical Exam Head: Positive for: Atraumatic, Normocephalic Pupils: Positive for: PERRL Neck: Positive for: Other ((+)trach) Respiratory/Chest: Positive for: Decreased Breath Sounds Cardiovascular: Positive for: Normal S1, S2, Tachycardic Abdomen: Positive for: Normal Bowel Sounds. Negative for: Peritoneal Signs Upper Extremity: Positive for: Normal Inspection Lower Extremity: Positive for: Normal Inspection Neurological: Negative for: GCS=15, CN II-XII Intact - Medications Active Medications: Active Medications Generic Name Dose Route Start Last Admin Trade Name Freq PRN Reason Stop Dose Admin Acetaminophen 650 mg 12/02/17 07:49 12/07/17 21:00 Tylenol 650mg/20.3ml Solution Ud PO 650 mg Q6 PRN Administration fever Ascorbic Acid 500 mg 12/11/17 10:00 12/11/17 09:04 Vitamin C 500 Mg Tab GT 500 mg DAILY PRISCILA Administration Aspirin 81 mg 12/02/17 10:00 12/08/17 09:55 Aspirin Chewable PO 81 mg DAILY PRISCILA Administration Bisacodyl 10 mg 12/03/17 11:57 Dulcolax [place] Q24H PRN Constipation Bisacodyl 10 mg 12/10/17 12:07 Dulcolax [place] HS PRN Constipation Diltiazem HCl 60 mg 12/05/17 12:00 12/11/17 05:33 Cardizem PO 60 mg Q6 PRISCILA Administration Famotidine 20 mg 12/07/17 12:30 12/11/17 09:04 Pepcid IVP 20 mg DAILY PRISCILA Administration Heparin Sodium (Porcine) 5,000 units 12/07/17 22:00 12/08/17 06:21 Heparin SC 5,000 units Q8 PRISCILA Administration Doxycycline Hyclate 100 mg/ 100 mls @ 100 mls/hr 12/03/17 12:30 12/10/17 23: 31 Sodium Chloride IVPB 100 mls/hr Q12H PRISCILA Administration Linezolid 600 mg in 300 mls @ 200 mls/hr 12/05/17 10:00 12/11/17 09:06 Zyvox 600mg/300ml D5w IVPB 200 mls/hr Q12 PRISCILA Administration Aztreonam 1 gm/ Sodium 100 mls @ 100 mls/hr 12/05/17 13:00 12/11/17 00:31 Chloride IVPB 100 mls/hr Q12H PRISCILA Administration Metronidazole 500 mg in 100 mls @ 100 mls/hr 12/10/17 14:00 12/11/17 05:36 Flagyl IVPB 100 mls/hr Q8 PRISCILA Administration Insulin Aspart 0 unit 12/11/17 00:53 12/11/17 05:34 Novolog SC 4 unit Q6 PRISCILA Administration Protocol Insulin Detemir 10 unit 12/08/17 22:00 12/10/17 21:32 Levemir SC 10 unit HS PRISCILA Administration Latanoprost 0 ml 12/01/17 23:45 12/10/17 21:36 Xalatan Opht OD 2.5 ml HS PRISCILA Administration Metoclopramide HCl 5 mg 12/10/17 12:06 Reglan GT 0600,1130,1630,2200 PRN Constipation Metoprolol Tartrate 25 mg 12/08/17 18:00 12/11/17 09:04 Lopressor PO 25 mg BID PRISCILA Administration Multivitamins/Vitamin C 5 ml 12/10/17 12:30 12/11/17 09:04 Multi-Delyn Liquid PO 5 ml DAILY PRISCILA Administration Sennosides 8.6 mg 12/11/17 10:00 12/11/17 09:04 Senokot Tab PO 8.6 mg DAILY PRISCILA Administration Sodium Bicarbonate 650 mg 12/06/17 18:00 12/11/17 09:04 Sodium Bicarbonate Tab PO 650 mg BID PRISCILA Administration Sucralfate 1 gm 12/03/17 18:00 12/11/17 09:04 Carafate Oral Susp PO 1 gm TID PRISCILA Administration - Patient Studies Lab Studies: Microbiology Studies 12/08/17 04:00 Blood Culture - Preliminary Blood-Venous NO GROWTH AFTER 3 DAYS 12/08/17 04:00 Blood Culture - Preliminary Blood-Venous NO GROWTH AFTER 3 DAYS Lab Studies 12/11/17 12/11/17 12/11/17 Range/Units 06:17 06:13 05:28 WBC 14.3 H (4.8-10.8) K/uL RBC 2.73 L (4.40-5.90) Mil/uL Hgb 7.4 L (12.0-18.0) g/dL Hct 22.3 L (35.0-51.0) % MCV 81.5 (80.0-94.0) fL MCH 27.1 (27.0-31.0) pg MCHC 33.2 (33.0-37.0) g/dL RDW 17.0 H (11.5-14.5) % Plt Count 175 (130-400) K/uL MPV 9.9 (7.2-11.7) fL Neut % (Auto) 90.9 H (50.0-75.0) % Lymph % (Auto) 5.0 L (20.0-40.0) % [place] % (Auto) 3.9 (0.0-10.0) % Eos % (Auto) 0.1 (0.0-4.0) % Baso % (Auto) 0.1 (0.0-2.0) % Neut # (Auto) 13.0 H (1.8-7.0) K/uL Lymph # (Auto) 0.7 L (1.0-4.3) K/uL [place] # (Auto) 0.6 (0.0-0.8) K/uL Eos # (Auto) 0.0 (0.0-0.7) K/uL Baso # (Auto) 0.0 (0.0-0.2) K/uL Neutrophils % (Manual) 95 H (50-75) % Band Neutrophils % 1 (0-2) % Lymphocytes % (Manual) 1 L (20-40) % Monocytes % (Manual) 3 (0-10) % Platelet Estimate Normal (NORMAL) Large Platelets Present Hypochromasia (manual) Slight Basophilic Stippling Slight Anisocytosis (manual) Slight Puncture Site pCO2 (35-45) mm/Hg pO2 (80-100) mm/Hg HCO3 (21-28) mmol/L ABG pH (7.35-7.45) ABG Total CO2 (22-28) mmol/L ABG O2 Saturation (95-98) % ABG Base Excess (-2.0-3.0) mmol/L Parviz Test ABG Potassium (3.6-5.2) mmol/L A-a O2 Difference mm/Hg Respiratory Index Sodium 151 H (132-148) mmol/l Chloride 118 H (98-107) mmol/L Glucose (75-110) mg/dl Lactate (0.7-2.1) mmol/L Vent Mode FiO2 % Pressure Support CPAP Potassium 3.4 L (3.6-5.2) mmol/L Carbon Dioxide 23 (22-30) mmol/L Anion Gap 14 (10-20) BUN 77 H (9-20) mg/dL Creatinine 1.8 H (0.8-1.5) mg/dL Est GFR ( Amer) 43 Est GFR (Non-Af Amer) 36 POC Glucose (mg/dL) 217 H (65-110) mg/dL Random Glucose 173 H (75-110) mg/dL Calcium 7.6 L (8.6-10.4) mg/dl Phosphorus 2.9 (2.5-4.5) mg/dL Magnesium 1.7 (1.6-2.3) mg/dL Total Bilirubin 0.3 (0.2-1.3) mg/dL AST 22 (17-59) U/L ALT 42 (21-72) U/L Alkaline Phosphatase 77 (38-126) U/L Total Protein 4.3 L (6.3-8.3) g/dL Albumin 2.4 L (3.5-5.0) g/dL Globulin 1.9 L (2.2-3.9) gm/dL Albumin/Globulin Ratio 1.3 (1.0-2.1) Arterial Blood Potassium (3.6-5.2) mmol/L 12/11/17 12/11/17 12/10/17 Range/Units 05:09 00:46 17:40 WBC (4.8-10.8) K/uL RBC (4.40-5.90) Mil/uL Hgb (12.0-18.0) g/dL Hct (35.0-51.0) % MCV (80.0-94.0) fL MCH (27.0-31.0) pg MCHC (33.0-37.0) g/dL RDW (11.5-14.5) % Plt Count (130-400) K/uL MPV (7.2-11.7) fL Neut % (Auto) (50.0-75.0) % Lymph % (Auto) (20.0-40.0) % [place] % (Auto) (0.0-10.0) % Eos % (Auto) (0.0-4.0) % Baso % (Auto) (0.0-2.0) % Neut # (Auto) (1.8-7.0) K/uL Lymph # (Auto) (1.0-4.3) K/uL [place] # (Auto) (0.0-0.8) K/uL Eos # (Auto) (0.0-0.7) K/uL Baso # (Auto) (0.0-0.2) K/uL Neutrophils % (Manual) (50-75) % Band Neutrophils % (0-2) % Lymphocytes % (Manual) (20-40) % Monocytes % (Manual) (0-10) % Platelet Estimate (NORMAL) Large Platelets Hypochromasia (manual) Basophilic Stippling Anisocytosis (manual) Puncture Site Lr pCO2 27 L (35-45) mm/Hg pO2 98 (80-100) mm/Hg HCO3 24.3 (21-28) mmol/L ABG pH 7.50 H (7.35-7.45) ABG Total CO2 21.9 L (22-28) mmol/L ABG O2 Saturation 98.9 H (95-98) % ABG Base Excess -0.8 (-2.0-3.0) mmol/L Parviz Test Pos ABG Potassium 3.3 L (3.6-5.2) mmol/L A-a O2 Difference 82.0 mm/Hg Respiratory Index 0.8 Sodium 153.0 H (132-148) mmol/l Chloride 123.0 H (98-107) mmol/L Glucose 195 H (75-110) mg/dl Lactate 2.4 H (0.7-2.1) mmol/L Vent Mode Cpap FiO2 30.0 % Pressure Support 10 CPAP 5 Potassium (3.6-5.2) mmol/L Carbon Dioxide (22-30) mmol/L Anion Gap (10-20) BUN (9-20) mg/dL Creatinine (0.8-1.5) mg/dL Est GFR ( Amer) Est GFR (Non-Af Amer) POC Glucose (mg/dL) 242 H 194 H (65-110) mg/dL Random Glucose (75-110) mg/dL Calcium (8.6-10.4) mg/dl Phosphorus (2.5-4.5) mg/dL Magnesium (1.6-2.3) mg/dL Total Bilirubin (0.2-1.3) mg/dL AST (17-59) U/L ALT (21-72) U/L Alkaline Phosphatase (38-126) U/L Total Protein (6.3-8.3) g/dL Albumin (3.5-5.0) g/dL Globulin (2.2-3.9) gm/dL Albumin/Globulin Ratio (1.0-2.1) Arterial Blood Potassium 3.3 L (3.6-5.2) mmol/L 12/10/17 Range/Units 11:44 WBC (4.8-10.8) K/uL RBC (4.40-5.90) Mil/uL Hgb (12.0-18.0) g/dL Hct (35.0-51.0) % MCV (80.0-94.0) fL MCH (27.0-31.0) pg MCHC (33.0-37.0) g/dL RDW (11.5-14.5) % Plt Count (130-400) K/uL MPV (7.2-11.7) fL Neut % (Auto) (50.0-75.0) % Lymph % (Auto) (20.0-40.0) % [place] % (Auto) (0.0-10.0) % Eos % (Auto) (0.0-4.0) % Baso % (Auto) (0.0-2.0) % Neut # (Auto) (1.8-7.0) K/uL Lymph # (Auto) (1.0-4.3) K/uL [place] # (Auto) (0.0-0.8) K/uL Eos # (Auto) (0.0-0.7) K/uL Baso # (Auto) (0.0-0.2) K/uL Neutrophils % (Manual) (50-75) % Band Neutrophils % (0-2) % Lymphocytes % (Manual) (20-40) % Monocytes % (Manual) (0-10) % Platelet Estimate (NORMAL) Large Platelets Hypochromasia (manual) Basophilic Stippling Anisocytosis (manual) Puncture Site pCO2 (35-45) mm/Hg pO2 (80-100) mm/Hg HCO3 (21-28) mmol/L ABG pH (7.35-7.45) ABG Total CO2 (22-28) mmol/L ABG O2 Saturation (95-98) % ABG Base Excess (-2.0-3.0) mmol/L Parviz Test ABG Potassium (3.6-5.2) mmol/L A-a O2 Difference mm/Hg Respiratory Index Sodium (132-148) mmol/l Chloride (98-107) mmol/L Glucose (75-110) mg/dl Lactate (0.7-2.1) mmol/L Vent Mode FiO2 % Pressure Support CPAP Potassium (3.6-5.2) mmol/L Carbon Dioxide (22-30) mmol/L Anion Gap (10-20) BUN (9-20) mg/dL Creatinine (0.8-1.5) mg/dL Est GFR ( Amer) Est GFR (Non-Af Amer) POC Glucose (mg/dL) 244 H (65-110) mg/dL Random Glucose (75-110) mg/dL Calcium (8.6-10.4) mg/dl Phosphorus (2.5-4.5) mg/dL Magnesium (1.6-2.3) mg/dL Total Bilirubin (0.2-1.3) mg/dL AST (17-59) U/L ALT (21-72) U/L Alkaline Phosphatase (38-126) U/L Total Protein (6.3-8.3) g/dL Albumin (3.5-5.0) g/dL Globulin (2.2-3.9) gm/dL Albumin/Globulin Ratio (1.0-2.1) Arterial Blood Potassium (3.6-5.2) mmol/L Laboratory Results - last 24 hr 12/10/17 12/10/17 12/11/17 11:44 17:40 00:46 WBC RBC Hgb Hct MCV MCH MCHC RDW Plt Count MPV Neut % (Auto) Lymph % (Auto) [place] % (Auto) Eos % (Auto) Baso % (Auto) Neut # (Auto) Lymph # (Auto) [place] # (Auto) Eos # (Auto) Baso # (Auto) Neutrophils % (Manual) Band Neutrophils % Lymphocytes % (Manual) Monocytes % (Manual) Platelet Estimate Large Platelets Hypochromasia (manual) Basophilic Stippling Anisocytosis (manual) Puncture Site pCO2 pO2 HCO3 ABG pH ABG Total CO2 ABG O2 Saturation ABG Base Excess Parviz Test ABG Potassium A-a O2 Difference Respiratory Index Sodium Chloride Glucose Lactate Vent Mode FiO2 Pressure Support CPAP Potassium Carbon Dioxide Anion Gap BUN Creatinine Est GFR ( Amer) Est GFR (Non-Af Amer) POC Glucose (mg/dL) 244 H 194 H 242 H Random Glucose Calcium Phosphorus Magnesium Total Bilirubin AST ALT Alkaline Phosphatase Total Protein Albumin Globulin Albumin/Globulin Ratio Arterial Blood Potassium 12/11/17 12/11/17 12/11/17 05:09 05:28 06:13 WBC RBC Hgb Hct MCV MCH MCHC RDW Plt Count MPV Neut % (Auto) Lymph % (Auto) [place] % (Auto) Eos % (Auto) Baso % (Auto) Neut # (Auto) Lymph # (Auto) [place] # (Auto) Eos # (Auto) Baso # (Auto) Neutrophils % (Manual) Band Neutrophils % Lymphocytes % (Manual) Monocytes % (Manual) Platelet Estimate Large Platelets Hypochromasia (manual) Basophilic Stippling Anisocytosis (manual) Puncture Site Lr pCO2 27 L pO2 98 HCO3 24.3 ABG pH 7.50 H ABG Total CO2 21.9 L ABG O2 Saturation 98.9 H ABG Base Excess -0.8 Parviz Test Pos ABG Potassium 3.3 L A-a O2 Difference 82.0 Respiratory Index 0.8 Sodium 153.0 H 151 H Chloride 123.0 H 118 H Glucose 195 H Lactate 2.4 H Vent Mode Cpap FiO2 30.0 Pressure Support 10 CPAP 5 Potassium 3.4 L Carbon Dioxide 23 Anion Gap 14 BUN 77 H Creatinine 1.8 H Est GFR ( Amer) 43 Est GFR (Non-Af Amer) 36 POC Glucose (mg/dL) 217 H Random Glucose 173 H Calcium 7.6 L Phosphorus 2.9 Magnesium 1.7 Total Bilirubin 0.3 AST 22 ALT 42 Alkaline Phosphatase 77 Total Protein 4.3 L Albumin 2.4 L Globulin 1.9 L Albumin/Globulin Ratio 1.3 Arterial Blood Potassium 3.3 L 12/11/17 06:17 WBC 14.3 H RBC 2.73 L Hgb 7.4 L Hct 22.3 L MCV 81.5 MCH 27.1 MCHC 33.2 RDW 17.0 H Plt Count 175 MPV 9.9 Neut % (Auto) 90.9 H Lymph % (Auto) 5.0 L [place] % (Auto) 3.9 Eos % (Auto) 0.1 Baso % (Auto) 0.1 Neut # (Auto) 13.0 H Lymph # (Auto) 0.7 L [place] # (Auto) 0.6 Eos # (Auto) 0.0 Baso # (Auto) 0.0 Neutrophils % (Manual) 95 H Band Neutrophils % 1 Lymphocytes % (Manual) 1 L Monocytes % (Manual) 3 Platelet Estimate Normal Large Platelets Present Hypochromasia (manual) Slight Basophilic Stippling Slight Anisocytosis (manual) Slight Puncture Site pCO2 pO2 HCO3 ABG pH ABG Total CO2 ABG O2 Saturation ABG Base Excess Parviz Test ABG Potassium A-a O2 Difference Respiratory Index Sodium Chloride Glucose Lactate Vent Mode FiO2 Pressure Support CPAP Potassium Carbon Dioxide Anion Gap BUN Creatinine Est GFR ( Amer) Est GFR (Non-Af Amer) POC Glucose (mg/dL) Random Glucose Calcium Phosphorus Magnesium Total Bilirubin AST ALT Alkaline Phosphatase Total Protein Albumin Globulin Albumin/Globulin Ratio Arterial Blood Potassium Fingerstick Blood Sugar Results: 217 Review of Systems - Review of Systems Systems not reviewed;Unavailable: Acuity of Condition Assessment/Plan - Assessment and Plan (Free Text) Assessment: 87 y/o male with pmx of hydrocephalus requiring a shunt who was recently admitted to [facility] for respiratory distress. Patient was transferred to [facility] and brought back to [facility] for same complaint. Plan: Respiratory distress: intubated to protect airway: PEEP 5, FiO2:50% continue ventilation suspect VQ mismatch 2nd aspiration staph/GPC, continue bronchodilators chest ct w/o contrast showed moderate pleurel effusion, CHF vs. Portal hypertension, findings suspicious PNA in right lung apex, gallstones and fluid adjacent to gallbladder, 2.6cm density in the Right upper lobe U/S for Pleural Effusion. Results showed not enough fluid to have pigtail cath placment. Will continue to watch. Continue CPAP trials today. Sepsis serial lactic LP reveals no WBC, non reacitive to VDRL, elevated protein and glucose. no hydrocephalus as presusre only 5 de-escalate abx, pending HSV PCR continue Zyvox/aztronam/doxy repeat procal 1.15 AMS suspect chronic -continue peg tube feeds CAD/NSTEMI/P. A-fib./flutter: asa, statin. Cardizem 60mg Q6 obtain cardiology eval,monitor to keep MAP >65, Echo: EF 50%, mild to moderate concentric LVH, and mild M.R. HR controlled today Lopressor 5mg PO Q6 priscila. Continue Heparin 5000 units sc q8. SIMON Creatinine 1.8 today. Slight improvement from prior day. 2nd sepsis/hypotension avoid nephrotoxic drgus Urine sodium:45, Urine osm:398, Urine Creatinine:268 DVT ppx heparin -pud ppx pepcid -bgm q6hrs,ISS <Ruth King - Last Filed: 12/11/17 19:36> CCU Objective - Vital Signs / Intake & Output Vital Signs (Last 4 hours): Vital Signs Temp Pulse Resp BP Pulse Ox 12/11/17 19:20 97.5 F L 66 16 125/60 12/11/17 19:09 66 14 124/63 99 12/11/17 19:00 66 19 99 12/11/17 18:45 67 18 99 12/11/17 18:39 67 18 126/59 L 99 12/11/17 18:33 67 20 140/65 98 12/11/17 18:30 67 21 98 12/11/17 18:23 97.4 F L 69 16 124/63 12/11/17 18:15 66 17 99 12/11/17 18:09 67 18 139/61 97 12/11/17 18:08 97.5 F L 68 17 139/61 12/11/17 18:00 67 18 98 12/11/17 17:53 97.4 F L 67 16 139/64 12/11/17 17:45 67 16 97 12/11/17 17:40 97.4 F L 77 16 139/64 98 12/11/17 17:30 82 24 100 12/11/17 17:17 125/65 12/11/17 17:15 78 26 H 100 12/11/17 17:09 68 20 125/65 100 12/11/17 17:00 97.4 F L 75 23 100 12/11/17 16:45 93 H 23 100 12/11/17 16:40 97.3 F L 73 24 134/60 12/11/17 16:39 82 19 134/63 100 12/11/17 16:30 68 18 100 12/11/17 16:15 68 22 100 12/11/17 16:09 68 22 124/59 L 100 12/11/17 16:00 68 22 100 12/11/17 15:45 68 20 100 12/11/17 15:40 97.4 F L 69 22 118/50 L Intake and Output (Last 8hrs): Intake & Output 12/11/17 12/11/17 12/11/17 06:59 14:59 22:59 Intake Total 1140 1000 1000 Output Total 825 460 280 Balance 315 540 720 Weight 205 lb 8 oz Intake: Intake, IV Amount 500 600 50 Right Distal Port 50 Internal Jugular Right Medial Port 500 600 Internal Jugular Tube Feeding 400 400 50 Blood Product 0 900 Red Blood Cells Cpd As1 125 Lr Unit [id number] Red Blood Cells Cpd As1 0 325 Lr Unit [id number] Other 240 Output: Urine 825 460 280 Urethral (Morgan) 825 460 280 Emesis 0 0 Other: # Bowel Movements 1 1 0 - Medications Active Medications: Active Medications Generic Name Dose Route Start Last Admin Trade Name Freq PRN Reason Stop Dose Admin Acetaminophen 650 mg 12/02/17 07:49 12/07/17 21:00 Tylenol 650mg/20.3ml Solution Ud PO 650 mg Q6 PRN Administration fever Ascorbic Acid 500 mg 12/11/17 10:00 12/11/17 09:04 Vitamin C 500 Mg Tab GT 500 mg DAILY PRISCILA Administration Aspirin 81 mg 12/02/17 10:00 12/08/17 09:55 Aspirin Chewable PO 81 mg DAILY PRISCILA Administration Bisacodyl 10 mg 12/03/17 11:57 Dulcolax [place] Q24H PRN Constipation Bisacodyl 10 mg 12/10/17 12:07 Dulcolax [place] HS PRN Constipation Diltiazem HCl 60 mg 12/05/17 12:00 12/11/17 17:17 Cardizem PO 60 mg Q6 PRISCILA Administration Famotidine 20 mg 12/07/17 12:30 12/11/17 09:04 Pepcid IVP 20 mg DAILY PRISCILA Administration Heparin Sodium (Porcine) 5,000 units 12/07/17 22:00 12/08/17 06:21 Heparin SC 5,000 units Q8 PRISCILA Administration Linezolid 600 mg in 300 mls @ 200 mls/hr 12/05/17 10:00 12/11/17 09:06 Zyvox 600mg/300ml D5w IVPB 200 mls/hr Q12 PRISCILA Administration Metronidazole 500 mg in 100 mls @ 100 mls/hr 12/10/17 14:00 12/11/17 13:38 Flagyl IVPB 100 mls/hr Q8 PRISCILA Administration Insulin Aspart 0 unit 12/11/17 00:53 12/11/17 18:30 Novolog SC 2 unit Q6 PRISCILA Administration Protocol Insulin Detemir 10 unit 12/08/17 22:00 12/10/17 21:32 Levemir SC 10 unit HS PRISCILA Administration Latanoprost 0 ml 12/01/17 23:45 12/10/17 21:36 Xalatan Opht OD 2.5 ml HS PRISCILA Administration Metoclopramide HCl 5 mg 12/10/17 12:06 Reglan GT 0600,1130,1630,2200 PRN Constipation Metoprolol Tartrate 25 mg 12/08/17 18:00 12/11/17 17:17 Lopressor PO 25 mg BID PRISCILA Administration Multivitamins/Vitamin C 5 ml 12/10/17 12:30 12/11/17 09:04 Multi-Delyn Liquid PO 5 ml DAILY PRISCILA Administration Sennosides 8.6 mg 12/11/17 10:00 12/11/17 09:04 Senokot Tab PO 8.6 mg DAILY PRISCILA Administration Sodium Bicarbonate 650 mg 12/06/17 18:00 12/11/17 17:17 Sodium Bicarbonate Tab PO 650 mg BID PRISCILA Administration Sucralfate 1 gm 12/03/17 18:00 12/11/17 17:17 Carafate Oral Susp PO 1 gm TID PRISCILA Administration - Patient Studies Lab Studies: Microbiology Studies 12/08/17 04:00 Blood Culture - Preliminary Blood-Venous NO GROWTH AFTER 3 DAYS 12/08/17 04:00 Blood Culture - Preliminary Blood-Venous NO GROWTH AFTER 3 DAYS Lab Studies 12/11/17 12/11/17 12/11/17 Range/Units 17:54 13:14 11:34 WBC (4.8-10.8) K/uL RBC (4.40-5.90) Mil/uL Hgb (12.0-18.0) g/dL Hct (35.0-51.0) % MCV (80.0-94.0) fL MCH (27.0-31.0) pg MCHC (33.0-37.0) g/dL RDW (11.5-14.5) % Plt Count (130-400) K/uL MPV (7.2-11.7) fL Neut % (Auto) (50.0-75.0) % Lymph % (Auto) (20.0-40.0) % [place] % (Auto) (0.0-10.0) % Eos % (Auto) (0.0-4.0) % Baso % (Auto) (0.0-2.0) % Neut # (Auto) (1.8-7.0) K/uL Lymph # (Auto) (1.0-4.3) K/uL [place] # (Auto) (0.0-0.8) K/uL Eos # (Auto) (0.0-0.7) K/uL Baso # (Auto) (0.0-0.2) K/uL Neutrophils % (Manual) (50-75) % Band Neutrophils % (0-2) % Lymphocytes % (Manual) (20-40) % Monocytes % (Manual) (0-10) % Platelet Estimate (NORMAL) Large Platelets Hypochromasia (manual) Basophilic Stippling Anisocytosis (manual) Puncture Site pCO2 (35-45) mm/Hg pO2 (80-100) mm/Hg HCO3 (21-28) mmol/L ABG pH (7.35-7.45) ABG Total CO2 (22-28) mmol/L ABG O2 Saturation (95-98) % ABG Base Excess (-2.0-3.0) mmol/L Parviz Test ABG Potassium (3.6-5.2) mmol/L A-a O2 Difference mm/Hg Respiratory Index Sodium (132-148) mmol/l Chloride (98-107) mmol/L Glucose (75-110) mg/dl Lactate (0.7-2.1) mmol/L Vent Mode FiO2 % Pressure Support CPAP Potassium (3.6-5.2) mmol/L Carbon Dioxide (22-30) mmol/L Anion Gap (10-20) BUN (9-20) mg/dL Creatinine (0.8-1.5) mg/dL Est GFR ( Amer) Est GFR (Non-Af Amer) POC Glucose (mg/dL) 180 H 215 H (65-110) mg/dL Random Glucose (75-110) mg/dL Calcium (8.6-10.4) mg/dl Phosphorus (2.5-4.5) mg/dL Magnesium (1.6-2.3) mg/dL Total Bilirubin (0.2-1.3) mg/dL AST (17-59) U/L ALT (21-72) U/L Alkaline Phosphatase (38-126) U/L Total Protein (6.3-8.3) g/dL Albumin (3.5-5.0) g/dL Globulin (2.2-3.9) gm/dL Albumin/Globulin Ratio (1.0-2.1) Arterial Blood Potassium (3.6-5.2) mmol/L Blood Type O POSITIVE Antibody Screen Negative 12/11/17 12/11/17 12/11/17 Range/Units 06:17 06:13 05:28 WBC 14.3 H (4.8-10.8) K/uL RBC 2.73 L (4.40-5.90) Mil/uL Hgb 7.4 L (12.0-18.0) g/dL Hct 22.3 L (35.0-51.0) % MCV 81.5 (80.0-94.0) fL MCH 27.1 (27.0-31.0) pg MCHC 33.2 (33.0-37.0) g/dL RDW 17.0 H (11.5-14.5) % Plt Count 175 (130-400) K/uL MPV 9.9 (7.2-11.7) fL Neut % (Auto) 90.9 H (50.0-75.0) % Lymph % (Auto) 5.0 L (20.0-40.0) % [place] % (Auto) 3.9 (0.0-10.0) % Eos % (Auto) 0.1 (0.0-4.0) % Baso % (Auto) 0.1 (0.0-2.0) % Neut # (Auto) 13.0 H (1.8-7.0) K/uL Lymph # (Auto) 0.7 L (1.0-4.3) K/uL [place] # (Auto) 0.6 (0.0-0.8) K/uL Eos # (Auto) 0.0 (0.0-0.7) K/uL Baso # (Auto) 0.0 (0.0-0.2) K/uL Neutrophils % (Manual) 95 H (50-75) % Band Neutrophils % 1 (0-2) % Lymphocytes % (Manual) 1 L (20-40) % Monocytes % (Manual) 3 (0-10) % Platelet Estimate Normal (NORMAL) Large Platelets Present Hypochromasia (manual) Slight Basophilic Stippling Slight Anisocytosis (manual) Slight Puncture Site pCO2 (35-45) mm/Hg pO2 (80-100) mm/Hg HCO3 (21-28) mmol/L ABG pH (7.35-7.45) ABG Total CO2 (22-28) mmol/L ABG O2 Saturation (95-98) % ABG Base Excess (-2.0-3.0) mmol/L Parviz Test ABG Potassium (3.6-5.2) mmol/L A-a O2 Difference mm/Hg Respiratory Index Sodium 151 H (132-148) mmol/l Chloride 118 H (98-107) mmol/L Glucose (75-110) mg/dl Lactate (0.7-2.1) mmol/L Vent Mode FiO2 % Pressure Support CPAP Potassium 3.4 L (3.6-5.2) mmol/L Carbon Dioxide 23 (22-30) mmol/L Anion Gap 14 (10-20) BUN 77 H (9-20) mg/dL Creatinine 1.8 H (0.8-1.5) mg/dL Est GFR ( Amer) 43 Est GFR (Non-Af Amer) 36 POC Glucose (mg/dL) 217 H (65-110) mg/dL Random Glucose 173 H (75-110) mg/dL Calcium 7.6 L (8.6-10.4) mg/dl Phosphorus 2.9 (2.5-4.5) mg/dL Magnesium 1.7 (1.6-2.3) mg/dL Total Bilirubin 0.3 (0.2-1.3) mg/dL AST 22 (17-59) U/L ALT 42 (21-72) U/L Alkaline Phosphatase 77 (38-126) U/L Total Protein 4.3 L (6.3-8.3) g/dL Albumin 2.4 L (3.5-5.0) g/dL Globulin 1.9 L (2.2-3.9) gm/dL Albumin/Globulin Ratio 1.3 (1.0-2.1) Arterial Blood Potassium (3.6-5.2) mmol/L Blood Type Antibody Screen 12/11/17 12/11/17 Range/Units 05:09 00:46 WBC (4.8-10.8) K/uL RBC (4.40-5.90) Mil/uL Hgb (12.0-18.0) g/dL Hct (35.0-51.0) % MCV (80.0-94.0) fL MCH (27.0-31.0) pg MCHC (33.0-37.0) g/dL RDW (11.5-14.5) % Plt Count (130-400) K/uL MPV (7.2-11.7) fL Neut % (Auto) (50.0-75.0) % Lymph % (Auto) (20.0-40.0) % [place] % (Auto) (0.0-10.0) % Eos % (Auto) (0.0-4.0) % Baso % (Auto) (0.0-2.0) % Neut # (Auto) (1.8-7.0) K/uL Lymph # (Auto) (1.0-4.3) K/uL [place] # (Auto) (0.0-0.8) K/uL Eos # (Auto) (0.0-0.7) K/uL Baso # (Auto) (0.0-0.2) K/uL Neutrophils % (Manual) (50-75) % Band Neutrophils % (0-2) % Lymphocytes % (Manual) (20-40) % Monocytes % (Manual) (0-10) % Platelet Estimate (NORMAL) Large Platelets Hypochromasia (manual) Basophilic Stippling Anisocytosis (manual) Puncture Site Lr pCO2 27 L (35-45) mm/Hg pO2 98 (80-100) mm/Hg HCO3 24.3 (21-28) mmol/L ABG pH 7.50 H (7.35-7.45) ABG Total CO2 21.9 L (22-28) mmol/L ABG O2 Saturation 98.9 H (95-98) % ABG Base Excess -0.8 (-2.0-3.0) mmol/L Parviz Test Pos ABG Potassium 3.3 L (3.6-5.2) mmol/L A-a O2 Difference 82.0 mm/Hg Respiratory Index 0.8 Sodium 153.0 H (132-148) mmol/l Chloride 123.0 H (98-107) mmol/L Glucose 195 H (75-110) mg/dl Lactate 2.4 H (0.7-2.1) mmol/L Vent Mode Cpap FiO2 30.0 % Pressure Support 10 CPAP 5 Potassium (3.6-5.2) mmol/L Carbon Dioxide (22-30) mmol/L Anion Gap (10-20) BUN (9-20) mg/dL Creatinine (0.8-1.5) mg/dL Est GFR ( Amer) Est GFR (Non-Af Amer) POC Glucose (mg/dL) 242 H (65-110) mg/dL Random Glucose (75-110) mg/dL Calcium (8.6-10.4) mg/dl Phosphorus (2.5-4.5) mg/dL Magnesium (1.6-2.3) mg/dL Total Bilirubin (0.2-1.3) mg/dL AST (17-59) U/L ALT (21-72) U/L Alkaline Phosphatase (38-126) U/L Total Protein (6.3-8.3) g/dL Albumin (3.5-5.0) g/dL Globulin (2.2-3.9) gm/dL Albumin/Globulin Ratio (1.0-2.1) Arterial Blood Potassium 3.3 L (3.6-5.2) mmol/L Blood Type Antibody Screen Laboratory Results - last 24 hr 12/11/17 12/11/17 12/11/17 00:46 05:09 05:28 WBC RBC Hgb Hct MCV MCH MCHC RDW Plt Count MPV Neut % (Auto) Lymph % (Auto) [place] % (Auto) Eos % (Auto) Baso % (Auto) Neut # (Auto) Lymph # (Auto) [place] # (Auto) Eos # (Auto) Baso # (Auto) Neutrophils % (Manual) Band Neutrophils % Lymphocytes % (Manual) Monocytes % (Manual) Platelet Estimate Large Platelets Hypochromasia (manual) Basophilic Stippling Anisocytosis (manual) Puncture Site Lr pCO2 27 L pO2 98 HCO3 24.3 ABG pH 7.50 H ABG Total CO2 21.9 L ABG O2 Saturation 98.9 H ABG Base Excess -0.8 Parviz Test Pos ABG Potassium 3.3 L A-a O2 Difference 82.0 Respiratory Index 0.8 Sodium 153.0 H Chloride 123.0 H Glucose 195 H Lactate 2.4 H Vent Mode Cpap FiO2 30.0 Pressure Support 10 CPAP 5 Potassium Carbon Dioxide Anion Gap BUN Creatinine Est GFR ( Amer) Est GFR (Non-Af Amer) POC Glucose (mg/dL) 242 H 217 H Random Glucose Calcium Phosphorus Magnesium Total Bilirubin AST ALT Alkaline Phosphatase Total Protein Albumin Globulin Albumin/Globulin Ratio Arterial Blood Potassium 3.3 L Blood Type Antibody Screen 12/11/17 12/11/17 12/11/17 06:13 06:17 11:34 WBC 14.3 H RBC 2.73 L Hgb 7.4 L Hct 22.3 L MCV 81.5 MCH 27.1 MCHC 33.2 RDW 17.0 H Plt Count 175 MPV 9.9 Neut % (Auto) 90.9 H Lymph % (Auto) 5.0 L [place] % (Auto) 3.9 Eos % (Auto) 0.1 Baso % (Auto) 0.1 Neut # (Auto) 13.0 H Lymph # (Auto) 0.7 L [place] # (Auto) 0.6 Eos # (Auto) 0.0 Baso # (Auto) 0.0 Neutrophils % (Manual) 95 H Band Neutrophils % 1 Lymphocytes % (Manual) 1 L Monocytes % (Manual) 3 Platelet Estimate Normal Large Platelets Present Hypochromasia (manual) Slight Basophilic Stippling Slight Anisocytosis (manual) Slight Puncture Site pCO2 pO2 HCO3 ABG pH ABG Total CO2 ABG O2 Saturation ABG Base Excess Parviz Test ABG Potassium A-a O2 Difference Respiratory Index Sodium 151 H Chloride 118 H Glucose Lactate Vent Mode FiO2 Pressure Support CPAP Potassium 3.4 L Carbon Dioxide 23 Anion Gap 14 BUN 77 H Creatinine 1.8 H Est GFR ( Amer) 43 Est GFR (Non-Af Amer) 36 POC Glucose (mg/dL) 215 H Random Glucose 173 H Calcium 7.6 L Phosphorus 2.9 Magnesium 1.7 Total Bilirubin 0.3 AST 22 ALT 42 Alkaline Phosphatase 77 Total Protein 4.3 L Albumin 2.4 L Globulin 1.9 L Albumin/Globulin Ratio 1.3 Arterial Blood Potassium Blood Type Antibody Screen 12/11/17 12/11/17 13:14 17:54 WBC RBC Hgb Hct MCV MCH MCHC RDW Plt Count MPV Neut % (Auto) Lymph % (Auto) [place] % (Auto) Eos % (Auto) Baso % (Auto) Neut # (Auto) Lymph # (Auto) [place] # (Auto) Eos # (Auto) Baso # (Auto) Neutrophils % (Manual) Band Neutrophils % Lymphocytes % (Manual) Monocytes % (Manual) Platelet Estimate Large Platelets Hypochromasia (manual) Basophilic Stippling Anisocytosis (manual) Puncture Site pCO2 pO2 HCO3 ABG pH ABG Total CO2 ABG O2 Saturation ABG Base Excess Parviz Test ABG Potassium A-a O2 Difference Respiratory Index Sodium Chloride Glucose Lactate Vent Mode FiO2 Pressure Support CPAP Potassium Carbon Dioxide Anion Gap BUN Creatinine Est GFR ( Amer) Est GFR (Non-Af Amer) POC Glucose (mg/dL) 180 H Random Glucose Calcium Phosphorus Magnesium Total Bilirubin AST ALT Alkaline Phosphatase Total Protein Albumin Globulin Albumin/Globulin Ratio Arterial Blood Potassium Blood Type O POSITIVE Antibody Screen Negative Attending/Attestation - Attestation I have personally seen and examined this patient.: Yes I have fully participated in the care of the patient.: Yes I have reviewed all pertinent clinical information: Yes Notes (Text): 12/11/17 19:36 patient had a tracheostomy. Right-sided weakness. CAT scan of the head done Awaiting results Prognosis poor
--- NOTE | 2017-12-11 16:01 | CP.PCM.PN ---
Subjective - Date & Time of Evaluation Date of Evaluation: 12/11/17 Time of Evaluation: 09:00 - Subjective Subjective: events noted new neuro findings/ CT done on vent via trach Objective - Vital Signs/Intake and Output Vital Signs (last 24 hours): Temp Pulse Resp BP Pulse Ox 98.4 F 68 20 118/50 L 100 12/11/17 14:40 12/11/17 15:45 12/11/17 15:45 12/11/17 15:29 12/11/17 15:45 Intake and Output: 12/11/17 12/11/17 06:59 18:59 Intake Total 1740 1175 Output Total 1135 460 Balance 605 715 - Medications Medications: Current Medications Acetaminophen (Tylenol 650mg/20.3ml Solution Ud) 650 mg PO Q6 PRN PRN Reason: fever Last Admin: 12/07/17 21:00 Dose: 650 mg Ascorbic Acid (Vitamin C 500 Mg Tab) 500 mg GT DAILY [facility] Last Admin: 12/11/17 09:04 Dose: 500 mg Aspirin (Aspirin Chewable) 81 mg PO DAILY [facility] Last Admin: 12/08/17 09:55 Dose: 81 mg Bisacodyl (Dulcolax) 10 mg [place] Q24H PRN PRN Reason: Constipation Bisacodyl (Dulcolax) 10 mg SD HS PRN PRN Reason: Constipation Diltiazem HCl (Cardizem) 60 mg PO Q6 [facility] Last Admin: 12/11/17 13:00 Dose: 60 mg Famotidine (Pepcid) 20 mg IVP DAILY [facility] Last Admin: 12/11/17 09:04 Dose: 20 mg Heparin Sodium (Porcine) (Heparin) 5,000 units SC Q8 [facility] Last Admin: 12/08/17 06:21 Dose: 5,000 units Linezolid (Zyvox 600mg/300ml D5w) 600 mg in 300 mls @ 200 mls/hr IVPB Q12 [facility] Last Admin: 12/11/17 09:06 Dose: 200 mls/hr Metronidazole (Flagyl) 500 mg in 100 mls @ 100 mls/hr IVPB Q8 [facility] Last Admin: 12/11/17 13:38 Dose: 100 mls/hr Insulin Aspart (Novolog) 0 unit SC Q6 [facility]NA PRN Reason: Protocol Last Admin: 12/11/17 12:13 Dose: 4 unit Insulin Detemir (Levemir) 10 unit SC HS [facility] Last Admin: 12/10/17 21:32 Dose: 10 unit Latanoprost (Xalatan Opht) 0 ml OD HS [facility] Last Admin: 12/10/17 21:36 Dose: 2.5 ml Metoclopramide HCl (Reglan) 5 mg GT 0600,1130,1630,2200 PRN PRN Reason: Constipation Metoprolol Tartrate (Lopressor) 25 mg PO BID [facility] Last Admin: 12/11/17 09:04 Dose: 25 mg Multivitamins/Vitamin C (Multi-Delyn Liquid) 5 ml PO DAILY [facility] Last Admin: 12/11/17 09:04 Dose: 5 ml Sennosides (Senokot Tab) 8.6 mg PO DAILY [facility] Last Admin: 12/11/17 09:04 Dose: 8.6 mg Sodium Bicarbonate (Sodium Bicarbonate Tab) 650 mg PO BID [facility] Last Admin: 12/11/17 09:04 Dose: 650 mg Sucralfate (Carafate Oral Susp) 1 gm PO TID [facility] Last Admin: 12/11/17 13:38 Dose: 1 gm - Labs Labs: 12/11/17 06:17 12/11/17 06:13 PT 13.1 SECONDS (9.7-12.2) H 12/09/17 01:33 INR 1.2 12/09/17 01:33 APTT 32 SECONDS (21-34) 12/09/17 01:33 - Constitutional Appears: Non-toxic, Chronically Ill - Head Exam Head Exam: NORMOCEPHALIC - Eye Exam Eye Exam: PERRL - ENT Exam ENT Exam: Mucous Membranes Dry - Neck Exam Neck Exam: absent: Lymphadenopathy - Respiratory Exam Respiratory Exam: Decreased Breath Sounds, Rhonchi - Cardiovascular Exam Cardiovascular Exam: REGULAR RHYTHM - GI/Abdominal Exam GI & Abdominal Exam: Distended, Soft - Rectal Exam Rectal Exam: Deferred Assessment and Plan (1) Respiratory failure Status: Acute (2) Pneumonia Status: Acute (3) Bandemia Status: Acute (4) Fever Status: Acute (5) Lethargy Status: Acute (6) Sepsis Status: Acute (7) Respiratory failure Status: Acute (8) Pneumonia Status: Acute - Assessment and Plan (Free Text) Assessment: d/c azactam
--- NOTE | 2017-12-11 18:02 | CP.PCM.PN ---
Subjective - Date & Time of Evaluation Date of Evaluation: 12/11/17 Time of Evaluation: 14:50 - Subjective Subjective: clinically same Objective - Vital Signs/Intake and Output Vital Signs (last 24 hours): Temp Pulse Resp BP Pulse Ox 97.4 F L 67 16 139/64 100 12/11/17 17:53 12/11/17 17:53 12/11/17 17:53 12/11/17 17:53 12/11/17 15:45 Intake and Output: 12/11/17 12/11/17 06:59 18:59 Intake Total 1740 1500 Output Total 1135 460 Balance 605 1040 - Medications Medications: Current Medications Acetaminophen (Tylenol 650mg/20.3ml Solution Ud) 650 mg PO Q6 PRN PRN Reason: fever Last Admin: 12/07/17 21:00 Dose: 650 mg Ascorbic Acid (Vitamin C 500 Mg Tab) 500 mg GT DAILY [facility] Last Admin: 12/11/17 09:04 Dose: 500 mg Aspirin (Aspirin Chewable) 81 mg PO DAILY [facility] Last Admin: 12/08/17 09:55 Dose: 81 mg Bisacodyl (Dulcolax) 10 mg [place] Q24H PRN PRN Reason: Constipation Bisacodyl (Dulcolax) 10 mg [place] HS PRN PRN Reason: Constipation Diltiazem HCl (Cardizem) 60 mg PO Q6 [facility] Last Admin: 12/11/17 17:17 Dose: 60 mg Famotidine (Pepcid) 20 mg IVP DAILY [facility] Last Admin: 12/11/17 09:04 Dose: 20 mg Heparin Sodium (Porcine) (Heparin) 5,000 units SC Q8 [facility] Last Admin: 12/08/17 06:21 Dose: 5,000 units Linezolid (Zyvox 600mg/300ml D5w) 600 mg in 300 mls @ 200 mls/hr IVPB Q12 [facility] Last Admin: 12/11/17 09:06 Dose: 200 mls/hr Metronidazole (Flagyl) 500 mg in 100 mls @ 100 mls/hr IVPB Q8 [facility] Last Admin: 12/11/17 13:38 Dose: 100 mls/hr Insulin Aspart (Novolog) 0 unit SC Q6 ANA PRN Reason: Protocol Last Admin: 12/11/17 12:13 Dose: 4 unit Insulin Detemir (Levemir) 10 unit SC [facility] Last Admin: 12/10/17 21:32 Dose: 10 unit Latanoprost (Xalatan Opht) 0 ml OD [facility] Last Admin: 12/10/17 21:36 Dose: 2.5 ml Metoclopramide HCl (Reglan) 5 mg GT 0600,1130,1630,2200 PRN PRN Reason: Constipation Metoprolol Tartrate (Lopressor) 25 mg PO BID [facility] Last Admin: 12/11/17 17:17 Dose: 25 mg Multivitamins/Vitamin C (Multi-Delyn Liquid) 5 ml PO DAILY [facility] Last Admin: 12/11/17 09:04 Dose: 5 ml Sennosides (Senokot Tab) 8.6 mg PO DAILY [facility] Last Admin: 12/11/17 09:04 Dose: 8.6 mg Sodium Bicarbonate (Sodium Bicarbonate Tab) 650 mg PO BID [facility] Last Admin: 12/11/17 17:17 Dose: 650 mg Sucralfate (Carafate Oral Susp) 1 gm PO TID [facility] Last Admin: 12/11/17 17:17 Dose: 1 gm - Labs Labs: 12/11/17 06:17 12/11/17 06:13 PT 13.1 SECONDS (9.7-12.2) H 12/09/17 01:33 INR 1.2 12/09/17 01:33 APTT 32 SECONDS (21-34) 12/09/17 01:33 - Constitutional Appears: Well - Head Exam Head Exam: ATRAUMATIC, NORMAL INSPECTION, NORMOCEPHALIC - Eye Exam Eye Exam: EOMI, Normal appearance, PERRL Pupil Exam: NORMAL ACCOMODATION, PERRL - ENT Exam ENT Exam: Mucous Membranes Moist, Normal Exam - Neck Exam Neck Exam: Full ROM, Normal Inspection. absent: Lymphadenopathy - Respiratory Exam Respiratory Exam: Decreased Breath Sounds - Cardiovascular Exam Cardiovascular Exam: REGULAR RHYTHM, +S1, +S2 - GI/Abdominal Exam GI & Abdominal Exam: Soft, Diminished Bowel Sounds - Rectal Exam Rectal Exam: Deferred Assessment and Plan (1) Bandemia Status: Acute (2) Dyspnea Status: Acute (3) Fever Status: Acute (4) Lethargy Status: Acute (5) Sepsis Status: Acute (6) Contusion Status: Acute (7) Fall Status: Acute
--- NOTE | 2017-12-11 19:42 | CP.PCM.PN ---
Subjective - Date & Time of Evaluation Date of Evaluation: 12/11/17 Time of Evaluation: 19:42 Objective - Vital Signs/Intake and Output Vital Signs (last 24 hours): Temp Pulse Resp BP Pulse Ox 97.5 F L 66 16 125/60 99 12/11/17 19:20 18 19:20 12/11/17 19:20 12/11/17 19:20 12/11/17 19:09 Intake and Output: 12/11/17 12/12/17 18:59 06:59 Intake Total 1875 125 Output Total 740 0 Balance 1135 125 - Medications Medications: Current Medications Acetaminophen (Tylenol 650mg/20.3ml Solution Ud) 650 mg PO Q6 PRN PRN Reason: fever Last Admin: 12/07/17 21:00 Dose: 650 mg Ascorbic Acid (Vitamin C 500 Mg Tab) 500 mg GT DAILY [facility] Last Admin: 12/11/17 09:04 Dose: 500 mg Aspirin (Aspirin Chewable) 81 mg PO DAILY [facility] Last Admin: 12/08/17 09:55 Dose: 81 mg Bisacodyl (Dulcolax) 10 mg [place] Q24H PRN PRN Reason: Constipation Bisacodyl (Dulcolax) 10 mg [place] HS PRN PRN Reason: Constipation Diltiazem HCl (Cardizem) 60 mg PO Q6 [facility] Last Admin: 12/11/17 17:17 Dose: 60 mg Famotidine (Pepcid) 20 mg IVP DAILY [facility] Last Admin: 12/11/17 09:04 Dose: 20 mg Heparin Sodium (Porcine) (Heparin) 5,000 units SC Q8 [facility] Last Admin: 12/08/17 06:21 Dose: 5,000 units Linezolid (Zyvox 600mg/300ml D5w) 600 mg in 300 mls @ 200 mls/hr IVPB Q12 [facility] Last Admin: 12/11/17 09:06 Dose: 200 mls/hr Metronidazole (Flagyl) 500 mg in 100 mls @ 100 mls/hr IVPB Q8 [facility] Last Admin: 12/11/17 13:38 Dose: 100 mls/hr Insulin Aspart (Novolog) 0 unit SC Q6 ANA PRN Reason: Protocol Last Admin: 12/11/17 18:30 Dose: 2 unit Insulin Detemir (Levemir) 10 unit SC HS [facility] Last Admin: 12/10/17 21:32 Dose: 10 unit Latanoprost (Xalatan Opht) 0 ml OD HS [facility] Last Admin: 12/10/17 21:36 Dose: 2.5 ml Metoclopramide HCl (Reglan) 5 mg GT 0600,1130,1630,2200 PRN PRN Reason: Constipation Metoprolol Tartrate (Lopressor) 25 mg PO BID [facility] Last Admin: 12/11/17 17:17 Dose: 25 mg Multivitamins/Vitamin C (Multi-Delyn Liquid) 5 ml PO DAILY [facility] Last Admin: 12/11/17 09:04 Dose: 5 ml Sennosides (Senokot Tab) 8.6 mg PO DAILY [facility] Last Admin: 12/11/17 09:04 Dose: 8.6 mg Sodium Bicarbonate (Sodium Bicarbonate Tab) 650 mg PO BID [facility] Last Admin: 12/11/17 17:17 Dose: 650 mg Sucralfate (Carafate Oral Susp) 1 gm PO TID [facility] Last Admin: 12/11/17 17:17 Dose: 1 gm - Labs Labs: 12/11/17 06:17 12/11/17 06:13 PT 13.1 SECONDS (9.7-12.2) H 12/09/17 01:33 INR 1.2 12/09/17 01:33 APTT 32 SECONDS (21-34) 12/09/17 01:33
[2017-12-11] MEDS: Insulin Detemir 100 units/ml Vial (Levemir) SC SCH (21:31)
[2017-12-11] MEDS: Latanoprost 2.5 ml Opht Soln OD SCH (21:33)
[2017-12-12] MEDS: (Novolog) Insulin Aspart, Recombinant 100 u/ml 10 ml vial SC SCH ×4 (00:35→17:31)
[2017-12-12] MEDS: metroNIDAZOLE IV 500 mg/100 ml 500 MG/100 ML BAG IVPB SCH ×3 (05:07→21:24)
[2017-12-12 05:37] LABS: ABG ALLEN TEST POS; ARTERIAL BLOOD GAS HEMOGLOBIN 10.5 g/dL (11.7-17.4); ARTERIAL BLOOD GAS O2 SAT 99.4 % (95-98); ARTERIAL BLOOD GAS PCO2 30 mm/Hg (35-45); ARTERIAL BLOOD GAS PH 7.47 (7.35-7.45); ARTERIAL BLOOD GAS PO2 121 mm/Hg (80-100); ARTERIAL BLOOD GAS TCO2 22.7 mmol/L (22-28)
[2017-12-12 06:25] LABS: BASO % 0.1 % (0.0-2.0); EOS % 0.1 % (0.0-4.0); HEMOGLOBIN 10.4 g/dL (12.0-18.0); LYMPH # 0.7 K/uL (1.0-4.3); MEAN CORPUSCULAR HEMOGLOBIN 26.6 pg (27.0-31.0); MEAN CORPUSCULAR HGB CONC 32.4 g/dL (33.0-37.0); MEAN PLATELET VOLUME 9.8 fL (7.2-11.7); MONO # 0.6 K/uL (0.0-0.8); MONO % 3.5 % (0.0-10.0); NEUT # 15.1 K/uL (1.8-7.0); NEUT % 92.3 % (50.0-75.0); PLATELET COUNT 173 K/uL (130-400); RED CELL DISTRIBUTION WIDTH 16.4 % (11.5-14.5); WHITE BLOOD COUNT 16.4 K/uL (4.8-10.8)
[2017-12-12 06:35] LABS: ALB/GLOB RATIO 1.4 (1.0-2.1); ALBUMIN 2.6 g/dL (3.5-5.0); MAGNESIUM 1.7 mg/dL (1.6-2.3)
[2017-12-12 09:23] LABS: ANISOCYTOSIS SLIGHT; EOSINOPHIL 1 % (0-4); HYPOCHROMIC SLIGHT; LYMPHOCYTE 6 % (20-40); MONOCYTE 2 % (0-10); MYELOCYTE 1 % (0-0); NEUTROPHIL 90 % (50-75); PLATELET ESTIMATE NORMAL (NORMAL); POIKILOCYTOSIS SLIGHT; TOTAL CELLS COUNTED 100
[2017-12-12 09:24] LABS: BURR CELLS SLIGHT
[2017-12-12] MEDS: Linezolid 600 mg in D5W 300 ml 600 MG/300 ML BAG IVPB SCH ×2 (10:36→22:24)
[2017-12-12] MEDS: Sucralfate 1 gm/10 ml Oral Susp UD PO SCH (10:41)
[2017-12-12] MEDS: Multiple Vitamins Oral Solution PO SCH (10:41)
--- NOTE | 2017-12-12 10:56 | CP.PCM.PN ---
Subjective - Date & Time of Evaluation Date of Evaluation: 12/12/17 Time of Evaluation: 10:54 - Subjective Subjective: seen and examined good uop ct head noted trach-vent peg tube unable to obtain ros Objective - Vital Signs/Intake and Output Vital Signs (last 24 hours): Temp Pulse Resp BP Pulse Ox 98.1 F 69 20 147/79 99 12/12/17 04:00 12/12/17 08:45 12/12/17 08:45 12/12/17 10:39 12/12/17 08:45 Intake and Output: 12/12/17 12/12/17 06:59 18:59 Intake Total 1575 50 Output Total 950 100 Balance 625 -50 - Medications Medications: Current Medications Acetaminophen (Tylenol 650mg/20.3ml Solution Ud) 650 mg PO Q6 PRN PRN Reason: fever Last Admin: 12/07/17 21:00 Dose: 650 mg Ascorbic Acid (Vitamin C 500 Mg Tab) 500 mg GT DAILY [facility] Last Admin: 12/12/17 10:39 Dose: 500 mg Aspirin (Aspirin Chewable) 81 mg PO DAILY [facility] Last Admin: 12/08/17 09:55 Dose: 81 mg Bisacodyl (Dulcolax) 10 mg [place] Q24H PRN PRN Reason: Constipation Bisacodyl (Dulcolax) 10 mg [place] HS PRN PRN Reason: Constipation Diltiazem HCl (Cardizem) 60 mg PO Q6 [facility] Last Admin: 12/12/17 05:09 Dose: 60 mg Famotidine (Pepcid) 20 mg IVP DAILY [facility] Last Admin: 12/11/17 09:04 Dose: 20 mg Heparin Sodium (Porcine) (Heparin) 5,000 units SC Q8 [facility] Last Admin: 12/08/17 06:21 Dose: 5,000 units Linezolid (Zyvox 600mg/300ml D5w) 600 mg in 300 mls @ 200 mls/hr IVPB Q12 [facility] Last Admin: 12/12/17 10:36 Dose: 200 mls/hr Metronidazole (Flagyl) 500 mg in 100 mls @ 100 mls/hr IVPB Q8 [facility] Last Admin: 12/12/17 05:07 Dose: 100 mls/hr Potassium Chloride (Potassium Chloride 20 Meq/100 Ml) 20 meq in 100 mls @ 50 mls/hr IVPB ONCE ONE Stop: 12/12/17 11:59 Last Admin: 12/12/17 10:15 Dose: 50 mls/hr Potassium Chloride (Potassium Chloride 20 Meq/100 Ml) 20 meq in 100 mls @ 50 mls/hr IVPB ONCE ONE Stop: 12/12/17 14:29 Potassium Chloride (Potassium Chloride 20 Meq/100 Ml) 20 meq in 100 mls @ 50 mls/hr IVPB ONCE ONE Stop: 12/12/17 15:59 Insulin Aspart (Novolog) 0 unit SC Q6 [facility] PRN Reason: Protocol Last Admin: 12/12/17 05:22 Dose: 4 unit Insulin Detemir (Levemir) 10 unit SC HS [facility] Last Admin: 12/11/17 21:31 Dose: 10 unit Latanoprost (Xalatan Opht) 0 ml OD HS [facility] Last Admin: 12/11/17 21:33 Dose: 2.5 ml Metoclopramide HCl (Reglan) 5 mg GT 0600,1130,1630,2200 PRN PRN Reason: Constipation Metoprolol Tartrate (Lopressor) 25 mg PO BID [facility] Last Admin: 12/12/17 10:39 Dose: 25 mg Multivitamins/Vitamin C (Multi-Delyn Liquid) 5 ml PO DAILY [facility] Last Admin: 12/12/17 10:41 Dose: 5 ml Sennosides (Senokot Tab) 8.6 mg PO DAILY [facility] Last Admin: 12/12/17 10:44 Dose: 8.6 mg Sodium Bicarbonate (Sodium Bicarbonate Tab) 650 mg PO BID [facility] Last Admin: 12/12/17 10:39 Dose: 650 mg - Labs Labs: 12/12/17 06:17 12/12/17 06:16 PT 13.1 SECONDS (9.7-12.2) H 12/09/17 01:33 INR 1.2 12/09/17 01:33 APTT 32 SECONDS (21-34) 12/09/17 01:33 - Constitutional Appears: No Acute Distress, Chronically Ill - Head Exam Head Exam: NORMAL INSPECTION, NORMOCEPHALIC - Eye Exam Eye Exam: Normal appearance, PERRL - ENT Exam ENT Exam: Mucous Membranes Dry (tracheostomy) - Respiratory Exam Respiratory Exam: Decreased Breath Sounds, NORMAL BREATHING PATTERN - Cardiovascular Exam Cardiovascular Exam: REGULAR RHYTHM, RRR - GI/Abdominal Exam GI & Abdominal Exam: Distended (peg tube. ttp), Soft - Extremities Exam Extremities Exam: Normal Inspection, Pedal Edema (2+) - Neurological Exam Neurological Exam: absent: Alert, Awake - Skin Skin Exam: Normal Color, Warm Assessment and Plan (1) SIMON (acute kidney injury) Status: Acute (2) Hypernatremia Status: Acute (3) Hypokalemia Status: Acute (4) Bandemia Status: Acute (5) Respiratory failure Status: Acute (6) Sepsis Status: Acute - Assessment and Plan (Free Text) Assessment: improving renal function , still w/ azotemia hypernatremia hypokalemia iv potassium supplentation, dc bicarb. repeat labs in pm free water w/ tube feeds, may give lasix prn
--- NOTE | 2017-12-12 11:01 | CP.CCUPN ---
<LuliEstrellan - Last Filed: 12/12/17 14:17> CCU Subjective - Physician Review Events Since Last Encounter (Free Text): 12/12/17 10:59 Per nursing no acute events occurred overnight. Subjective (Free Text): 12/06/17 11:39 Patient seen and examined at bedside this A.M. Per nursing no acute events overnight Critical Care Time Spent (in minutes): 45 CCU Objective - Vital Signs / Intake & Output Vital Signs (Last 4 hours): Vital Signs Pulse Resp BP Pulse Ox 12/12/17 10:39 147/79 12/12/17 08:45 69 20 99 12/12/17 08:30 69 18 99 12/12/17 08:00 69 14 99 12/12/17 07:56 69 17 127/61 99 12/12/17 07:45 72 22 99 12/12/17 07:30 69 18 99 12/12/17 07:16 78 22 130/54 L 99 12/12/17 07:15 92 H 23 99 12/12/17 07:00 92 H 17 99 Intake and Output (Last 8hrs): Intake & Output 12/11/17 12/12/17 12/12/17 22:59 06:59 14:59 Intake Total 1650 800 50 Output Total 580 650 100 Balance 1070 150 -50 Intake: Intake, IV Amount 200 400 Right Distal Port 200 400 Internal Jugular Tube Feeding 200 400 50 Blood Product 1250 Red Blood Cells Cpd As1 325 Lr Unit [id number] Red Blood Cells Cpd As1 325 Lr Unit [id number] Output: Urine 580 650 100 Urethral (Morgan) 580 650 100 Emesis 0 0 Other: # Bowel Movements 0 0 - Physical Exam Head: Positive for: Atraumatic, Normocephalic Pupils: Positive for: PERRL Neck: Positive for: Other ((+)trach) Respiratory/Chest: Positive for: Decreased Breath Sounds Cardiovascular: Positive for: Normal S1, S2, Tachycardic Abdomen: Positive for: Normal Bowel Sounds. Negative for: Peritoneal Signs Upper Extremity: Positive for: Normal Inspection Lower Extremity: Positive for: Other (Pedal edema 2+) Neurological: Negative for: GCS=15, CN II-XII Intact - Medications Active Medications: Active Medications Generic Name Dose Route Start Last Admin Trade Name Freq PRN Reason Stop Dose Admin Acetaminophen 650 mg 02/10/18 07:49 12/07/17 21:00 Tylenol 650mg/20.3ml Solution Ud PO 650 mg Q6 PRN Administration fever Ascorbic Acid 500 mg 12/11/17 10:00 12/12/17 10:39 Vitamin C 500 Mg Tab GT 500 mg DAILY PRISCILA Administration Aspirin 81 mg 12/02/17 10:00 12/08/17 09:55 Aspirin Chewable PO 81 mg DAILY PRISCILA Administration Bisacodyl 10 mg 12/03/17 11:57 Dulcolax [place] Q24H PRN Constipation Bisacodyl 10 mg 12/10/17 12:07 Dulcolax [place] HS PRN Constipation Diltiazem HCl 60 mg 12/05/17 12:00 12/12/17 05:09 Cardizem PO 60 mg Q6 PRISCILA Administration Famotidine 20 mg 12/07/17 12:30 12/11/17 09:04 Pepcid IVP 20 mg DAILY PRISCILA Administration Heparin Sodium (Porcine) 5,000 units 12/07/17 22:00 12/08/17 06:21 Heparin SC 5,000 units Q8 PRISCILA Administration Linezolid 600 mg in 300 mls @ 200 mls/hr 12/05/17 10:00 12/12/17 10:36 Zyvox 600mg/300ml D5w IVPB 200 mls/hr Q12 PRISCILA Administration Metronidazole 500 mg in 100 mls @ 100 mls/hr 12/10/17 14:00 12/12/17 05:07 Flagyl IVPB 100 mls/hr Q8 PRISCILA Administration Potassium Chloride 20 meq in 100 mls @ 50 mls/hr 12/12/17 10:00 12/12/17 10: 15 Potassium Chloride 20 Meq/100 Ml IVPB 12/12/17 11:59 50 mls/hr ONCE ONE Administration Potassium Chloride 20 meq in 100 mls @ 50 mls/hr 12/12/17 12:30 Potassium Chloride 20 Meq/100 Ml IVPB 12/12/17 14:29 ONCE ONE Potassium Chloride 20 meq in 100 mls @ 50 mls/hr 12/12/17 14:00 Potassium Chloride 20 Meq/100 Ml IVPB 12/12/17 15:59 ONCE ONE Insulin Aspart 0 unit 12/11/17 00:53 12/12/17 05:22 Novolog SC 4 unit Q6 PRISCILA Administration Protocol Insulin Detemir 10 unit 12/08/17 22:00 12/11/17 21:31 Levemir SC 10 unit HS PRISCILA Administration Latanoprost 0 ml 12/01/17 23:45 12/11/17 21:33 Xalatan Opht OD 2.5 ml HS PRISCILA Administration Metoclopramide HCl 5 mg 12/10/17 12:06 Reglan GT 0600,1130,1630,2200 PRN Constipation Metoprolol Tartrate 25 mg 12/08/17 18:00 12/12/17 10:39 Lopressor PO 25 mg BID PRISCILA Administration Multivitamins/Vitamin C 5 ml 12/10/17 12:30 12/12/17 10:41 Multi-Delyn Liquid PO 5 ml DAILY PRISCILA Administration Sennosides 8.6 mg 12/11/17 10:00 12/12/17 10:44 Senokot Tab PO 8.6 mg DAILY PRISCILA Administration Sodium Bicarbonate 650 mg 12/06/17 18:00 12/12/17 10:39 Sodium Bicarbonate Tab PO 650 mg BID PRISCILA Administration - Patient Studies Lab Studies: Microbiology Studies 12/08/17 04:00 Blood Culture - Preliminary Blood-Venous NO GROWTH AFTER 4 DAYS 12/08/17 04:00 Blood Culture - Preliminary Blood-Venous NO GROWTH AFTER 4 DAYS Lab Studies 12/12/17 12/12/17 12/12/17 Range/Units 06:17 06:16 05:13 WBC 16.4 H (4.8-10.8) K/uL RBC 3.90 L (4.40-5.90) Mil/uL Hgb 10.4 L D (12.0-18.0) g/dL Hct 32.0 L (35.0-51.0) % MCV 82.0 (80.0-94.0) fL MCH 26.6 L (27.0-31.0) pg MCHC 32.4 L (33.0-37.0) g/dL RDW 16.4 H (11.5-14.5) % Plt Count 173 (130-400) K/uL MPV 9.8 (7.2-11.7) fL Neut % (Auto) 92.3 H (50.0-75.0) % Lymph % (Auto) 4.0 L (20.0-40.0) % Butler % (Auto) 3.5 (0.0-10.0) % Eos % (Auto) 0.1 (0.0-4.0) % Baso % (Auto) 0.1 (0.0-2.0) % Neut # (Auto) 15.1 H (1.8-7.0) K/uL Lymph # (Auto) 0.7 L (1.0-4.3) K/uL Butler # (Auto) 0.6 (0.0-0.8) K/uL Eos # (Auto) 0.0 (0.0-0.7) K/uL Baso # (Auto) 0.0 (0.0-0.2) K/uL Neutrophils % (Manual) 90 H (50-75) % Lymphocytes % (Manual) 6 L (20-40) % Monocytes % (Manual) 2 (0-10) % Eosinophils % (Manual) 1 (0-4) % Myelocytes % 1 H (0-0) % Platelet Estimate Normal (NORMAL) Hypochromasia (manual) Slight Poikilocytosis (manual Slight Anisocytosis (manual) Slight [place] Cells Slight Puncture Site pCO2 (35-45) mm/Hg pO2 (80-100) mm/Hg HCO3 (21-28) mmol/L ABG pH (7.35-7.45) ABG Total CO2 (22-28) mmol/L ABG O2 Saturation (95-98) % ABG Base Excess (-2.0-3.0) mmol/L ABG Hemoglobin (11.7-17.4) g/dL ABG Carboxyhemoglobin (0.5-1.5) % POC ABG HHb (Measured) (0.0-5.0) % ABG Methemoglobin (0.0-3.0) % Parviz Test A-a O2 Difference mm/Hg Respiratory Index Hgb O2 Saturation (95.0-98.0) % Vent Mode FiO2 % Pressure Support CPAP Sodium 153 H (132-148) mmol/L Potassium 2.9 L (3.6-5.2) mmol/L Chloride 118 H (98-107) mmol/L Carbon Dioxide 24 (22-30) mmol/L Anion Gap 13 (10-20) BUN 74 H (9-20) mg/dL Creatinine 1.5 (0.8-1.5) mg/dL Est GFR ( Amer) 53 Est GFR (Non-Af Amer) 44 POC Glucose (mg/dL) 215 H (65-110) mg/dL Random Glucose 196 H (75-110) mg/dL Calcium 8.0 L (8.6-10.4) mg/dl Phosphorus 3.0 (2.5-4.5) mg/dL Magnesium 1.7 (1.6-2.3) mg/dL Total Bilirubin 0.6 (0.2-1.3) mg/dL AST 23 (17-59) U/L ALT 39 (21-72) U/L Alkaline Phosphatase 87 (38-126) U/L Total Protein 4.5 L (6.3-8.3) g/dL Albumin 2.6 L (3.5-5.0) g/dL Globulin 1.9 L (2.2-3.9) gm/dL Albumin/Globulin Ratio 1.4 (1.0-2.1) Blood Type Antibody Screen 12/12/17 12/12/17 12/11/17 Range/Units 05:13 00:08 17:54 WBC (4.8-10.8) K/uL RBC (4.40-5.90) Mil/uL Hgb (12.0-18.0) g/dL Hct (35.0-51.0) % MCV (80.0-94.0) fL MCH (27.0-31.0) pg MCHC (33.0-37.0) g/dL RDW (11.5-14.5) % Plt Count (130-400) K/uL MPV (7.2-11.7) fL Neut % (Auto) (50.0-75.0) % Lymph % (Auto) (20.0-40.0) % Butler % (Auto) (0.0-10.0) % Eos % (Auto) (0.0-4.0) % Baso % (Auto) (0.0-2.0) % Neut # (Auto) (1.8-7.0) K/uL Lymph # (Auto) (1.0-4.3) K/uL Butler # (Auto) (0.0-0.8) K/uL Eos # (Auto) (0.0-0.7) K/uL Baso # (Auto) (0.0-0.2) K/uL Neutrophils % (Manual) (50-75) % Lymphocytes % (Manual) (20-40) % Monocytes % (Manual) (0-10) % Eosinophils % (Manual) (0-4) % Myelocytes % (0-0) % Platelet Estimate (NORMAL) Hypochromasia (manual) Poikilocytosis (manual Anisocytosis (manual) [place] Cells Puncture Site Lr pCO2 30 L (35-45) mm/Hg pO2 121 H (80-100) mm/Hg HCO3 24.0 (21-28) mmol/L ABG pH 7.47 H (7.35-7.45) ABG Total CO2 22.7 (22-28) mmol/L ABG O2 Saturation 99.4 H (95-98) % ABG Base Excess -1.2 (-2.0-3.0) mmol/L ABG Hemoglobin 10.5 L (11.7-17.4) g/dL ABG Carboxyhemoglobin 1.9 H (0.5-1.5) % POC ABG HHb (Measured) 0.6 (0.0-5.0) % ABG Methemoglobin 1.1 (0.0-3.0) % Parviz Test Pos A-a O2 Difference 55.0 mm/Hg Respiratory Index 0.5 Hgb O2 Saturation 96.4 (95.0-98.0) % Vent Mode Cpap FiO2 30.0 % Pressure Support 10 CPAP 5 Sodium (132-148) mmol/L Potassium (3.6-5.2) mmol/L Chloride (98-107) mmol/L Carbon Dioxide (22-30) mmol/L Anion Gap (10-20) BUN (9-20) mg/dL Creatinine (0.8-1.5) mg/dL Est GFR ( Amer) Est GFR (Non-Af Amer) POC Glucose (mg/dL) 186 H 180 H (65-110) mg/dL Random Glucose (75-110) mg/dL Calcium (8.6-10.4) mg/dl Phosphorus (2.5-4.5) mg/dL Magnesium (1.6-2.3) mg/dL Total Bilirubin (0.2-1.3) mg/dL AST (17-59) U/L ALT (21-72) U/L Alkaline Phosphatase (38-126) U/L Total Protein (6.3-8.3) g/dL Albumin (3.5-5.0) g/dL Globulin (2.2-3.9) gm/dL Albumin/Globulin Ratio (1.0-2.1) Blood Type Antibody Screen 12/11/17 12/11/17 Range/Units 13:14 11:34 WBC (4.8-10.8) K/uL RBC (4.40-5.90) Mil/uL Hgb (12.0-18.0) g/dL Hct (35.0-51.0) % MCV (80.0-94.0) fL MCH (27.0-31.0) pg MCHC (33.0-37.0) g/dL RDW (11.5-14.5) % Plt Count (130-400) K/uL MPV (7.2-11.7) fL Neut % (Auto) (50.0-75.0) % Lymph % (Auto) (20.0-40.0) % Butler % (Auto) (0.0-10.0) % Eos % (Auto) (0.0-4.0) % Baso % (Auto) (0.0-2.0) % Neut # (Auto) (1.8-7.0) K/uL Lymph # (Auto) (1.0-4.3) K/uL Butler # (Auto) (0.0-0.8) K/uL Eos # (Auto) (0.0-0.7) K/uL Baso # (Auto) (0.0-0.2) K/uL Neutrophils % (Manual) (50-75) % Lymphocytes % (Manual) (20-40) % Monocytes % (Manual) (0-10) % Eosinophils % (Manual) (0-4) % Myelocytes % (0-0) % Platelet Estimate (NORMAL) Hypochromasia (manual) Poikilocytosis (manual Anisocytosis (manual) [place] Cells Puncture Site pCO2 (35-45) mm/Hg pO2 (80-100) mm/Hg HCO3 (21-28) mmol/L ABG pH (7.35-7.45) ABG Total CO2 (22-28) mmol/L ABG O2 Saturation (95-98) % ABG Base Excess (-2.0-3.0) mmol/L ABG Hemoglobin (11.7-17.4) g/dL ABG Carboxyhemoglobin (0.5-1.5) % POC ABG HHb (Measured) (0.0-5.0) % ABG Methemoglobin (0.0-3.0) % Parviz Test A-a O2 Difference mm/Hg Respiratory Index Hgb O2 Saturation (95.0-98.0) % Vent Mode FiO2 % Pressure Support CPAP Sodium (132-148) mmol/L Potassium (3.6-5.2) mmol/L Chloride (98-107) mmol/L Carbon Dioxide (22-30) mmol/L Anion Gap (10-20) BUN (9-20) mg/dL Creatinine (0.8-1.5) mg/dL Est GFR ( Amer) Est GFR (Non-Af Amer) POC Glucose (mg/dL) 215 H (65-110) mg/dL Random Glucose (75-110) mg/dL Calcium (8.6-10.4) mg/dl Phosphorus (2.5-4.5) mg/dL Magnesium (1.6-2.3) mg/dL Total Bilirubin (0.2-1.3) mg/dL AST (17-59) U/L ALT (21-72) U/L Alkaline Phosphatase (38-126) U/L Total Protein (6.3-8.3) g/dL Albumin (3.5-5.0) g/dL Globulin (2.2-3.9) gm/dL Albumin/Globulin Ratio (1.0-2.1) Blood Type O POSITIVE Antibody Screen Negative Laboratory Results - last 24 hr 12/11/17 12/11/17 12/11/17 11:34 13:14 17:54 WBC RBC Hgb Hct MCV MCH MCHC RDW Plt Count MPV Neut % (Auto) Lymph % (Auto) [place] % (Auto) Eos % (Auto) Baso % (Auto) Neut # (Auto) Lymph # (Auto) [place] # (Auto) Eos # (Auto) Baso # (Auto) Neutrophils % (Manual) Lymphocytes % (Manual) Monocytes % (Manual) Eosinophils % (Manual) Myelocytes % Platelet Estimate Hypochromasia (manual) Poikilocytosis (manual Anisocytosis (manual) [place] Cells Puncture Site pCO2 pO2 HCO3 ABG pH ABG Total CO2 ABG O2 Saturation ABG Base Excess ABG Hemoglobin ABG Carboxyhemoglobin POC ABG HHb (Measured) ABG Methemoglobin Parviz Test A-a O2 Difference Respiratory Index Hgb O2 Saturation Vent Mode FiO2 Pressure Support CPAP Sodium Potassium Chloride Carbon Dioxide Anion Gap BUN Creatinine Est GFR ( Amer) Est GFR (Non-Af Amer) POC Glucose (mg/dL) 215 H 180 H Random Glucose Calcium Phosphorus Magnesium Total Bilirubin AST ALT Alkaline Phosphatase Total Protein Albumin Globulin Albumin/Globulin Ratio Blood Type O POSITIVE Antibody Screen Negative 12/12/17 12/12/17 12/12/17 00:08 05:13 05:13 WBC RBC Hgb Hct MCV MCH MCHC RDW Plt Count MPV Neut % (Auto) Lymph % (Auto) [place] % (Auto) Eos % (Auto) Baso % (Auto) Neut # (Auto) Lymph # (Auto) [place] # (Auto) Eos # (Auto) Baso # (Auto) Neutrophils % (Manual) Lymphocytes % (Manual) Monocytes % (Manual) Eosinophils % (Manual) Myelocytes % Platelet Estimate Hypochromasia (manual) Poikilocytosis (manual Anisocytosis (manual) [place] Cells Puncture Site Lr pCO2 30 L pO2 121 H HCO3 24.0 ABG pH 7.47 H ABG Total CO2 22.7 ABG O2 Saturation 99.4 H ABG Base Excess -1.2 ABG Hemoglobin 10.5 L ABG Carboxyhemoglobin 1.9 H POC ABG HHb (Measured) 0.6 ABG Methemoglobin 1.1 Parviz Test Pos A-a O2 Difference 55.0 Respiratory Index 0.5 Hgb O2 Saturation 96.4 Vent Mode Cpap FiO2 30.0 Pressure Support 10 CPAP 5 Sodium Potassium Chloride Carbon Dioxide Anion Gap BUN Creatinine Est GFR ( Amer) Est GFR (Non-Af Amer) POC Glucose (mg/dL) 186 H 215 H Random Glucose Calcium Phosphorus Magnesium Total Bilirubin AST ALT Alkaline Phosphatase Total Protein Albumin Globulin Albumin/Globulin Ratio Blood Type Antibody Screen 12/12/17 12/12/17 06:16 06:17 WBC 16.4 H RBC 3.90 L Hgb 10.4 L D Hct 32.0 L MCV 82.0 MCH 26.6 L MCHC 32.4 L RDW 16.4 H Plt Count 173 MPV 9.8 Neut % (Auto) 92.3 H Lymph % (Auto) 4.0 L [place] % (Auto) 3.5 Eos % (Auto) 0.1 Baso % (Auto) 0.1 Neut # (Auto) 15.1 H Lymph # (Auto) 0.7 L [place] # (Auto) 0.6 Eos # (Auto) 0.0 Baso # (Auto) 0.0 Neutrophils % (Manual) 90 H Lymphocytes % (Manual) 6 L Monocytes % (Manual) 2 Eosinophils % (Manual) 1 Myelocytes % 1 H Platelet Estimate Normal Hypochromasia (manual) Slight Poikilocytosis (manual Slight Anisocytosis (manual) Slight [place] Cells Slight Puncture Site pCO2 pO2 HCO3 ABG pH ABG Total CO2 ABG O2 Saturation ABG Base Excess ABG Hemoglobin ABG Carboxyhemoglobin POC ABG HHb (Measured) ABG Methemoglobin Parviz Test A-a O2 Difference Respiratory Index Hgb O2 Saturation Vent Mode FiO2 Pressure Support CPAP Sodium 153 H Potassium 2.9 L Chloride 118 H Carbon Dioxide 24 Anion Gap 13 BUN 74 H Creatinine 1.5 Est GFR ( Amer) 53 Est GFR (Non-Af Amer) 44 POC Glucose (mg/dL) Random Glucose 196 H Calcium 8.0 L Phosphorus 3.0 Magnesium 1.7 Total Bilirubin 0.6 AST 23 ALT 39 Alkaline Phosphatase 87 Total Protein 4.5 L Albumin 2.6 L Globulin 1.9 L Albumin/Globulin Ratio 1.4 Blood Type Antibody Screen Fingerstick Blood Sugar Results: 215 Review of Systems - EENT Eyes: absent: Blurred Vision, Change in Vision, Discharge, Loss of Peripheral Vision, Loss of Vision Ears: absent: Ear Discharge, Dizziness Nose/Mouth/Throat: absent: Nasal Congestion, Nose Pain, Dysphagia, Hoarsness - Cardiovascular Cardiovascular: absent: Chest Pain, Diaphoresis, Syncope - Respiratory Respiratory: absent: Cough, Dyspnea, Hemoptysis - Gastrointestinal Gastrointestinal: absent: Belching, Dysphagia, Heartburn, Nausea, Vomiting - Musculoskeletal Musculoskeletal: absent: Arthralgias, Back Pain, Neck Pain, Stiffness - Neurological Neurological: absent: Abnormal Hearing, Abnormal Movements, Dizziness, Vertigo, Weakness - Psychiatric Psychiatric: absent: Anhedonia, Confusion - Endocrine Endocrine: absent: Polydipsia, Polyphagia, Polyuria Assessment/Plan - Assessment and Plan (Free Text) Assessment: 87 y/o male with pmx of hydrocephalus requiring a shunt who was recently admitted to [facility] for respiratory distress. Patient was transferred to [facility] and brought back to [facility] for same complaint. Plan: Respiratory distress: intubated to protect airway: FiO2:30% continue ventilation suspect VQ mismatch 2nd aspiration staph/GPC, continue bronchodilators chest ct w/o contrast showed moderate pleurel effusion, CHF vs. Portal hypertension, findings suspicious PNA in right lung apex, gallstones and fluid adjacent to gallbladder, 2.6cm density in the Right upper lobe U/S for Pleural Effusion. Results showed not enough fluid to have pigtail cath placment. Will continue to watch. Continue CPAP trials today. Sepsis serial lactic LP reveals no WBC, non reacitive to VDRL, elevated protein and glucose. no hydrocephalus as presusre only 5 de-escalate abx, pending HSV PCR continue Zyvox/aztronam/doxy repeat procal 1.15 AMS suspect chronic -continue peg tube feeds CAD/NSTEMI/P. A-fib./flutter: asa, statin. Cardizem 60mg Q6 obtain cardiology eval,monitor to keep MAP >65, Echo: EF 50%, mild to moderate concentric LVH, and mild M.R. HR controlled today Lopressor 25mg PO BID priscila. Continue Heparin 5000 units sc q8. SIMON Creatinine 1.5 today. 2nd sepsis/hypotension avoid nephrotoxic drgus Urine sodium:45, Urine osm:398, Urine Creatinine:268 DVT ppx heparin -pud ppx pepcid -bgm q6hrs,ISS <Kraig Cook S - Last Filed: 12/12/17 17:23> CCU Subjective - Physician Review Critical Care Time Spent (in minutes): 30 CCU Objective - Vital Signs / Intake & Output Vital Signs (Last 4 hours): Vital Signs Temp Pulse Resp BP Pulse Ox 12/12/17 17:00 70 15 98 12/12/17 16:56 70 15 145/66 98 02/20/18 16:00 98.2 F 70 26 H 97 12/12/17 15:56 80 16 148/61 99 12/12/17 15:00 76 22 98 12/12/17 14:56 76 22 135/69 86 L 12/12/17 14:00 69 24 98 18 13:56 69 18 136/72 98 Intake and Output (Last 8hrs): Intake & Output 12/12/17 12/12/17 12/12/17 06:59 14:59 22:59 Intake Total 800 1600 400 Output Total 650 820 225 Balance 150 780 175 Weight 205 lb 8 oz Intake: Intake, IV Amount 400 700 Right Distal Port 400 Internal Jugular Right Medial Port 300 Internal Jugular Right Proximal Port 400 Internal Jugular Tube Feeding 400 400 150 Other 500 250 Output: Urine 650 820 225 Urethral (Morgan) 650 820 225 Emesis 0 Other: # Bowel Movements 0 1 1 - Medications Active Medications: Active Medications Generic Name Dose Route Start Last Admin Trade Name Freq PRN Reason Stop Dose Admin Acetaminophen 650 mg 12/02/17 07:49 12/07/17 21:00 Tylenol 650mg/20.3ml Solution Ud PO 650 mg Q6 PRN Administration fever Ascorbic Acid 500 mg 12/11/17 10:00 12/12/17 10:39 Vitamin C 500 Mg Tab GT 500 mg DAILY PRISCILA Administration Aspirin 81 mg 12/02/17 10:00 12/08/17 09:55 Aspirin Chewable PO 81 mg DAILY PRISCILA Administration Bisacodyl 10 mg 12/03/17 11:57 Dulcolax [place] Q24H PRN Constipation Bisacodyl 10 mg 12/10/17 12:07 Dulcolax [place] HS PRN Constipation Diltiazem HCl 60 mg 12/05/17 12:00 12/12/17 11:45 Cardizem PO 60 mg Q6 PRISCILA Administration Famotidine 20 mg 12/07/17 12:30 12/12/17 11:45 Pepcid IVP 20 mg DAILY PRISCILA Administration Heparin Sodium (Porcine) 5,000 units 12/07/17 22:00 12/08/17 06:21 Heparin SC 5,000 units Q8 PRISCILA Administration Linezolid 600 mg in 300 mls @ 200 mls/hr 12/05/17 10:00 12/12/17 10:36 Zyvox 600mg/300ml D5w IVPB 200 mls/hr Q12 PRISCILA Administration Metronidazole 500 mg in 100 mls @ 100 mls/hr 12/10/17 14:00 12/12/17 13:10 Flagyl IVPB 100 mls/hr Q8 PRISCILA Administration Insulin Aspart 0 unit 12/11/17 00:53 12/12/17 11:45 Novolog SC 4 unit Q6 PRISCILA Administration Protocol Insulin Detemir 10 unit 12/08/17 22:00 12/11/17 21:31 Levemir SC 10 unit HS PRISCILA Administration Latanoprost 0 ml 12/01/17 23:45 12/11/17 21:33 Xalatan Opht OD 2.5 ml HS PRISCILA Administration Metoclopramide HCl 5 mg 12/10/17 12:06 Reglan GT 0600,1130,1630,2200 PRN Constipation Metoprolol Tartrate 25 mg 12/08/17 18:00 12/12/17 10:39 Lopressor PO 25 mg BID PRISCILA Administration Multivitamins/Vitamin C 5 ml 12/10/17 12:30 12/12/17 10:41 Multi-Delyn Liquid PO 5 ml DAILY PRISCILA Administration Sennosides 8.6 mg 12/11/17 10:00 12/12/17 10:44 Senokot Tab PO 8.6 mg DAILY PRISCILA Administration Sodium Bicarbonate 650 mg 12/06/17 18:00 12/12/17 10:39 Sodium Bicarbonate Tab PO 650 mg BID PRISCILA Administration - Patient Studies Lab Studies: Microbiology Studies 12/08/17 04:00 Blood Culture - Preliminary Blood-Venous NO GROWTH AFTER 4 DAYS 12/08/17 04:00 Blood Culture - Preliminary Blood-Venous NO GROWTH AFTER 4 DAYS Lab Studies 12/12/17 12/12/17 12/12/17 Range/Units 11:36 06:17 06:16 WBC 16.4 H (4.8-10.8) K/uL RBC 3.90 L (4.40-5.90) Mil/uL Hgb 10.4 L D (12.0-18.0) g/dL Hct 32.0 L (35.0-51.0) % MCV 82.0 (80.0-94.0) fL MCH 26.6 L (27.0-31.0) pg MCHC 32.4 L (33.0-37.0) g/dL RDW 16.4 H (11.5-14.5) % Plt Count 173 (130-400) K/uL MPV 9.8 (7.2-11.7) fL Neut % (Auto) 92.3 H (50.0-75.0) % Lymph % (Auto) 4.0 L (20.0-40.0) % Butler % (Auto) 3.5 (0.0-10.0) % Eos % (Auto) 0.1 (0.0-4.0) % Baso % (Auto) 0.1 (0.0-2.0) % Neut # (Auto) 15.1 H (1.8-7.0) K/uL Lymph # (Auto) 0.7 L (1.0-4.3) K/uL Butler # (Auto) 0.6 (0.0-0.8) K/uL Eos # (Auto) 0.0 (0.0-0.7) K/uL Baso # (Auto) 0.0 (0.0-0.2) K/uL Neutrophils % (Manual) 90 H (50-75) % Lymphocytes % (Manual) 6 L (20-40) % Monocytes % (Manual) 2 (0-10) % Eosinophils % (Manual) 1 (0-4) % Myelocytes % 1 H (0-0) % Platelet Estimate Normal (NORMAL) Hypochromasia (manual) Slight Poikilocytosis (manual Slight Anisocytosis (manual) Slight [place]anni Cells Slight Puncture Site pCO2 (35-45) mm/Hg pO2 (80-100) mm/Hg HCO3 (21-28) mmol/L ABG pH (7.35-7.45) ABG Total CO2 (22-28) mmol/L ABG O2 Saturation (95-98) % ABG Base Excess (-2.0-3.0) mmol/L ABG Hemoglobin (11.7-17.4) g/dL ABG Carboxyhemoglobin (0.5-1.5) % POC ABG HHb (Measured) (0.0-5.0) % ABG Methemoglobin (0.0-3.0) % Parviz Test A-a O2 Difference mm/Hg Respiratory Index Hgb O2 Saturation (95.0-98.0) % Vent Mode FiO2 % Pressure Support CPAP Sodium 153 H (132-148) mmol/L Potassium 2.9 L (3.6-5.2) mmol/L Chloride 118 H (98-107) mmol/L Carbon Dioxide 24 (22-30) mmol/L Anion Gap 13 (10-20) BUN 74 H (9-20) mg/dL Creatinine 1.5 (0.8-1.5) mg/dL Est GFR ( Amer) 53 Est GFR (Non-Af Amer) 44 POC Glucose (mg/dL) 219 H (65-110) mg/dL Random Glucose 196 H (75-110) mg/dL Calcium 8.0 L (8.6-10.4) mg/dl Phosphorus 3.0 (2.5-4.5) mg/dL Magnesium 1.7 (1.6-2.3) mg/dL Total Bilirubin 0.6 (0.2-1.3) mg/dL AST 23 (17-59) U/L ALT 39 (21-72) U/L Alkaline Phosphatase 87 (38-126) U/L Total Protein 4.5 L (6.3-8.3) g/dL Albumin 2.6 L (3.5-5.0) g/dL Globulin 1.9 L (2.2-3.9) gm/dL Albumin/Globulin Ratio 1.4 (1.0-2.1) Blood Type Antibody Screen 12/12/17 12/12/17 12/12/17 Range/Units 05:13 05:13 00:08 WBC (4.8-10.8) K/uL RBC (4.40-5.90) Mil/uL Hgb (12.0-18.0) g/dL Hct (35.0-51.0) % MCV (80.0-94.0) fL MCH (27.0-31.0) pg MCHC (33.0-37.0) g/dL RDW (11.5-14.5) % Plt Count (130-400) K/uL MPV (7.2-11.7) fL Neut % (Auto) (50.0-75.0) % Lymph % (Auto) (20.0-40.0) % [place] % (Auto) (0.0-10.0) % Eos % (Auto) (0.0-4.0) % Baso % (Auto) (0.0-2.0) % Neut # (Auto) (1.8-7.0) K/uL Lymph # (Auto) (1.0-4.3) K/uL [place] # (Auto) (0.0-0.8) K/uL Eos # (Auto) (0.0-0.7) K/uL Baso # (Auto) (0.0-0.2) K/uL Neutrophils % (Manual) (50-75) % Lymphocytes % (Manual) (20-40) % Monocytes % (Manual) (0-10) % Eosinophils % (Manual) (0-4) % Myelocytes % (0-0) % Platelet Estimate (NORMAL) Hypochromasia (manual) Poikilocytosis (manual Anisocytosis (manual) [place] Cells Puncture Site Lr pCO2 30 L (35-45) mm/Hg pO2 121 H (80-100) mm/Hg HCO3 24.0 (21-28) mmol/L ABG pH 7.47 H (7.35-7.45) ABG Total CO2 22.7 (22-28) mmol/L ABG O2 Saturation 99.4 H (95-98) % ABG Base Excess -1.2 (-2.0-3.0) mmol/L ABG Hemoglobin 10.5 L (11.7-17.4) g/dL ABG Carboxyhemoglobin 1.9 H (0.5-1.5) % POC ABG HHb (Measured) 0.6 (0.0-5.0) % ABG Methemoglobin 1.1 (0.0-3.0) % Parviz Test Pos A-a O2 Difference 55.0 mm/Hg Respiratory Index 0.5 Hgb O2 Saturation 96.4 (95.0-98.0) % Vent Mode Cpap FiO2 30.0 % Pressure Support 10 CPAP 5 Sodium (132-148) mmol/L Potassium (3.6-5.2) mmol/L Chloride (98-107) mmol/L Carbon Dioxide (22-30) mmol/L Anion Gap (10-20) BUN (9-20) mg/dL Creatinine (0.8-1.5) mg/dL Est GFR ( Amer) Est GFR (Non-Af Amer) POC Glucose (mg/dL) 215 H 186 H (65-110) mg/dL Random Glucose (75-110) mg/dL Calcium (8.6-10.4) mg/dl Phosphorus (2.5-4.5) mg/dL Magnesium (1.6-2.3) mg/dL Total Bilirubin (0.2-1.3) mg/dL AST (17-59) U/L ALT (21-72) U/L Alkaline Phosphatase (38-126) U/L Total Protein (6.3-8.3) g/dL Albumin (3.5-5.0) g/dL Globulin (2.2-3.9) gm/dL Albumin/Globulin Ratio (1.0-2.1) Blood Type Antibody Screen 12/11/17 12/11/17 Range/Units 17:54 13:14 WBC (4.8-10.8) K/uL RBC (4.40-5.90) Mil/uL Hgb (12.0-18.0) g/dL Hct (35.0-51.0) % MCV (80.0-94.0) fL MCH (27.0-31.0) pg MCHC (33.0-37.0) g/dL RDW (11.5-14.5) % Plt Count (130-400) K/uL MPV (7.2-11.7) fL Neut % (Auto) (50.0-75.0) % Lymph % (Auto) (20.0-40.0) % [place] % (Auto) (0.0-10.0) % Eos % (Auto) (0.0-4.0) % Baso % (Auto) (0.0-2.0) % Neut # (Auto) (1.8-7.0) K/uL Lymph # (Auto) (1.0-4.3) K/uL [place] # (Auto) (0.0-0.8) K/uL Eos # (Auto) (0.0-0.7) K/uL Baso # (Auto) (0.0-0.2) K/uL Neutrophils % (Manual) (50-75) % Lymphocytes % (Manual) (20-40) % Monocytes % (Manual) (0-10) % Eosinophils % (Manual) (0-4) % Myelocytes % (0-0) % Platelet Estimate (NORMAL) Hypochromasia (manual) Poikilocytosis (manual Anisocytosis (manual) [place] Cells Puncture Site pCO2 (35-45) mm/Hg pO2 (80-100) mm/Hg HCO3 (21-28) mmol/L ABG pH (7.35-7.45) ABG Total CO2 (22-28) mmol/L ABG O2 Saturation (95-98) % ABG Base Excess (-2.0-3.0) mmol/L ABG Hemoglobin (11.7-17.4) g/dL ABG Carboxyhemoglobin (0.5-1.5) % POC ABG HHb (Measured) (0.0-5.0) % ABG Methemoglobin (0.0-3.0) % Parviz Test A-a O2 Difference mm/Hg Respiratory Index Hgb O2 Saturation (95.0-98.0) % Vent Mode FiO2 % Pressure Support CPAP Sodium (132-148) mmol/L Potassium (3.6-5.2) mmol/L Chloride (98-107) mmol/L Carbon Dioxide (22-30) mmol/L Anion Gap (10-20) BUN (9-20) mg/dL Creatinine (0.8-1.5) mg/dL Est GFR ( Amer) Est GFR (Non-Af Amer) POC Glucose (mg/dL) 180 H (65-110) mg/dL Random Glucose (75-110) mg/dL Calcium (8.6-10.4) mg/dl Phosphorus (2.5-4.5) mg/dL Magnesium (1.6-2.3) mg/dL Total Bilirubin (0.2-1.3) mg/dL AST (17-59) U/L ALT (21-72) U/L Alkaline Phosphatase (38-126) U/L Total Protein (6.3-8.3) g/dL Albumin (3.5-5.0) g/dL Globulin (2.2-3.9) gm/dL Albumin/Globulin Ratio (1.0-2.1) Blood Type O POSITIVE Antibody Screen Negative Laboratory Results - last 24 hr 12/11/17 12/11/17 12/12/17 13:14 17:54 00:08 WBC RBC Hgb Hct MCV MCH MCHC RDW Plt Count MPV Neut % (Auto) Lymph % (Auto) [place] % (Auto) Eos % (Auto) Baso % (Auto) Neut # (Auto) Lymph # (Auto) [place] # (Auto) Eos # (Auto) Baso # (Auto) Neutrophils % (Manual) Lymphocytes % (Manual) Monocytes % (Manual) Eosinophils % (Manual) Myelocytes % Platelet Estimate Hypochromasia (manual) Poikilocytosis (manual Anisocytosis (manual) [place] Cells Puncture Site pCO2 pO2 HCO3 ABG pH ABG Total CO2 ABG O2 Saturation ABG Base Excess ABG Hemoglobin ABG Carboxyhemoglobin POC ABG HHb (Measured) ABG Methemoglobin Parviz Test A-a O2 Difference Respiratory Index Hgb O2 Saturation Vent Mode FiO2 Pressure Support CPAP Sodium Potassium Chloride Carbon Dioxide Anion Gap BUN Creatinine Est GFR ( Amer) Est GFR (Non-Af Amer) POC Glucose (mg/dL) 180 H 186 H Random Glucose Calcium Phosphorus Magnesium Total Bilirubin AST ALT Alkaline Phosphatase Total Protein Albumin Globulin Albumin/Globulin Ratio Blood Type O POSITIVE Antibody Screen Negative 12/12/17 12/12/17 12/12/17 05:13 05:13 06:16 WBC RBC Hgb Hct MCV MCH MCHC RDW Plt Count MPV Neut % (Auto) Lymph % (Auto) [place] % (Auto) Eos % (Auto) Baso % (Auto) Neut # (Auto) Lymph # (Auto) [place] # (Auto) Eos # (Auto) Baso # (Auto) Neutrophils % (Manual) Lymphocytes % (Manual) Monocytes % (Manual) Eosinophils % (Manual) Myelocytes % Platelet Estimate Hypochromasia (manual) Poikilocytosis (manual Anisocytosis (manual) [place] Cells Puncture Site Lr pCO2 30 L pO2 121 H HCO3 24.0 ABG pH 7.47 H ABG Total CO2 22.7 ABG O2 Saturation 99.4 H ABG Base Excess -1.2 ABG Hemoglobin 10.5 L ABG Carboxyhemoglobin 1.9 H POC ABG HHb (Measured) 0.6 ABG Methemoglobin 1.1 Parviz Test Pos A-a O2 Difference 55.0 Respiratory Index 0.5 Hgb O2 Saturation 96.4 Vent Mode Cpap FiO2 30.0 Pressure Support 10 CPAP 5 Sodium 153 H Potassium 2.9 L Chloride 118 H Carbon Dioxide 24 Anion Gap 13 BUN 74 H Creatinine 1.5 Est GFR ( Amer) 53 Est GFR (Non-Af Amer) 44 POC Glucose (mg/dL) 215 H Random Glucose 196 H Calcium 8.0 L Phosphorus 3.0 Magnesium 1.7 Total Bilirubin 0.6 AST 23 ALT 39 Alkaline Phosphatase 87 Total Protein 4.5 L Albumin 2.6 L Globulin 1.9 L Albumin/Globulin Ratio 1.4 Blood Type Antibody Screen 12/12/17 12/12/17 06:17 11:36 WBC 16.4 H RBC 3.90 L Hgb 10.4 L D Hct 32.0 L MCV 82.0 MCH 26.6 L MCHC 32.4 L RDW 16.4 H Plt Count 173 MPV 9.8 Neut % (Auto) 92.3 H Lymph % (Auto) 4.0 L [place] % (Auto) 3.5 Eos % (Auto) 0.1 Baso % (Auto) 0.1 Neut # (Auto) 15.1 H Lymph # (Auto) 0.7 L [place] # (Auto) 0.6 Eos # (Auto) 0.0 Baso # (Auto) 0.0 Neutrophils % (Manual) 90 H Lymphocytes % (Manual) 6 L Monocytes % (Manual) 2 Eosinophils % (Manual) 1 Myelocytes % 1 H Platelet Estimate Normal Hypochromasia (manual) Slight Poikilocytosis (manual Slight Anisocytosis (manual) Slight [place] Cells Slight Puncture Site pCO2 pO2 HCO3 ABG pH ABG Total CO2 ABG O2 Saturation ABG Base Excess ABG Hemoglobin ABG Carboxyhemoglobin POC ABG HHb (Measured) ABG Methemoglobin Parviz Test A-a O2 Difference Respiratory Index Hgb O2 Saturation Vent Mode FiO2 Pressure Support CPAP Sodium Potassium Chloride Carbon Dioxide Anion Gap BUN Creatinine Est GFR ( Amer) Est GFR (Non-Af Amer) POC Glucose (mg/dL) 219 H Random Glucose Calcium Phosphorus Magnesium Total Bilirubin AST ALT Alkaline Phosphatase Total Protein Albumin Globulin Albumin/Globulin Ratio Blood Type Antibody Screen Attending/Attestation - Attestation I have personally seen and examined this patient.: Yes I have fully participated in the care of the patient.: Yes I have reviewed all pertinent clinical information: Yes Notes (Text): 12/12/17 17:22 patient seen and examined in the intensive care unit. case is discussed with house staff in the morning rounds. Status post tracheostomy Being treated for pneumonia Continue feeding Consider transferring to LTAC
--- NOTE | 2017-12-12 12:47 | RAD ---
HISTORY: resp status COMPARISON: Chest x-ray performed 12/11/17 TECHNIQUE: Chest, one view. FINDINGS: Examination limited by habitus and patient obliquity. Tracheostomy tube. Right IJ approach central venous catheter extends the expected location of the SVC. LUNGS: Bilateral layering pleural effusions, right greater than left. Probable bibasilar atelectasis or infiltrates. No definite pneumothorax. Biapical pleural thickening. CARDIOVASCULAR: Cardiomegaly. Atherosclerotic calcifications of the aorta. OSSEOUS STRUCTURES: Osseous demineralization. Degenerative changes. VISUALIZED UPPER ABDOMEN: Unremarkable. OTHER FINDINGS: None. IMPRESSION: Examination limited by habitus and patient obliquity. Tracheostomy tube. Right IJ approach central venous catheter extends the expected location of the SVC. Bilateral layering pleural effusions, right greater than left. Probable bibasilar atelectasis or infiltrates. Biapical pleural thickening.
--- NOTE | 2017-12-12 16:59 | CP.PCM.PN ---
Subjective - Date & Time of Evaluation Date of Evaluation: 12/12/17 Time of Evaluation: 16:20 - Subjective Subjective: clinically same Objective - Vital Signs/Intake and Output Vital Signs (last 24 hours): Temp Pulse Resp BP Pulse Ox 98.2 F 70 26 H 148/61 97 12/12/17 16:00 12/12/17 16:00 12/12/17 16:00 12/12/17 15:56 12/12/17 16:00 Intake and Output: 12/12/17 12/12/17 06:59 18:59 Intake Total 1575 1950 Output Total 950 945 Balance 625 1005 - Medications Medications: Current Medications Acetaminophen (Tylenol 650mg/20.3ml Solution Ud) 650 mg PO Q6 PRN PRN Reason: fever Last Admin: 12/07/17 21:00 Dose: 650 mg Ascorbic Acid (Vitamin C 500 Mg Tab) 500 mg GT DAILY [facility] Last Admin: 12/12/17 10:39 Dose: 500 mg Aspirin (Aspirin Chewable) 81 mg PO DAILY [facility] Last Admin: 12/08/17 09:55 Dose: 81 mg Bisacodyl (Dulcolax) 10 mg [place] Q24H PRN PRN Reason: Constipation Bisacodyl (Dulcolax) 10 mg [place] HS PRN PRN Reason: Constipation Diltiazem HCl (Cardizem) 60 mg PO Q6 [facility] Last Admin: 12/12/17 11:45 Dose: 60 mg Famotidine (Pepcid) 20 mg IVP DAILY [facility] Last Admin: 12/12/17 11:45 Dose: 20 mg Heparin Sodium (Porcine) (Heparin) 5,000 units SC Q8 [facility] Last Admin: 12/08/17 06:21 Dose: 5,000 units Linezolid (Zyvox 600mg/300ml D5w) 600 mg in 300 mls @ 200 mls/hr IVPB Q12 [facility] Last Admin: 12/12/17 10:36 Dose: 200 mls/hr Metronidazole (Flagyl) 500 mg in 100 mls @ 100 mls/hr IVPB Q8 [facility] Last Admin: 12/12/17 13:10 Dose: 100 mls/hr Insulin Aspart (Novolog) 0 unit SC Q6 [facility] PRN Reason: Protocol Last Admin: 12/12/17 11:45 Dose: 4 unit Insulin Detemir (Levemir) 10 unit SC [facility] Last Admin: 12/11/17 21:31 Dose: 10 unit Latanoprost (Xalatan Opht) 0 ml OD [facility] Last Admin: 12/11/17 21:33 Dose: 2.5 ml Metoclopramide HCl (Reglan) 5 mg [place] 0600,1130,1630,2200 PRN PRN Reason: Constipation Metoprolol Tartrate (Lopressor) 25 mg PO BID [facility] Last Admin: 12/12/17 10:39 Dose: 25 mg Multivitamins/Vitamin C (Multi-Delyn Liquid) 5 ml PO DAILY [facility] Last Admin: 12/12/17 10:41 Dose: 5 ml Sennosides (Senokot Tab) 8.6 mg PO DAILY [facility] Last Admin: 12/12/17 10:44 Dose: 8.6 mg Sodium Bicarbonate (Sodium Bicarbonate Tab) 650 mg PO BID [facility] Last Admin: 12/12/17 10:39 Dose: 650 mg - Labs Labs: 12/12/17 06:17 12/12/17 06:16 PT 13.1 SECONDS (9.7-12.2) H 12/09/17 01:33 INR 1.2 12/09/17 01:33 APTT 32 SECONDS (21-34) 12/09/17 01:33 - Constitutional Appears: Well - Head Exam Head Exam: ATRAUMATIC, NORMAL INSPECTION, NORMOCEPHALIC - Eye Exam Eye Exam: EOMI, Normal appearance, PERRL Pupil Exam: NORMAL ACCOMODATION, PERRL - ENT Exam ENT Exam: Mucous Membranes Moist, Normal Exam - Neck Exam Neck Exam: Full ROM, Normal Inspection. absent: Lymphadenopathy - Respiratory Exam Respiratory Exam: Decreased Breath Sounds - Cardiovascular Exam Cardiovascular Exam: REGULAR RHYTHM, +S1, +S2 - GI/Abdominal Exam GI & Abdominal Exam: Soft, Diminished Bowel Sounds - Rectal Exam Rectal Exam: Deferred Assessment and Plan (1) Bandemia Status: Acute (2) Dyspnea Status: Acute (3) Fever Status: Acute (4) Lethargy Status: Acute (5) Sepsis Status: Acute (6) Contusion Status: Acute (7) Fall Status: Acute
[2017-12-12 17:47] LABS: CALCIUM 7.7 mg/dl (8.6-10.4)
[2017-12-12] MEDS ORDERED: Potassium Chloride 20 mEq/15 ml LIQ UD PEG ONE (18:22)
--- NOTE | 2017-12-12 18:32 | CP.PCM.PN ---
Objective - Vital Signs/Intake and Output Vital Signs (last 24 hours): Temp Pulse Resp BP Pulse Ox 98.2 F 69 24 131/72 99 12/12/17 16:00 12/12/17 18:00 12/12/17 18:00 12/12/17 17:56 12/12/17 18:00 Intake and Output: 12/12/17 12/12/17 06:59 18:59 Intake Total 1575 2110 Output Total 950 1135 Balance 625 975 - Medications Medications: Current Medications Acetaminophen (Tylenol 650mg/20.3ml Solution Ud) 650 mg PO Q6 PRN PRN Reason: fever Last Admin: 12/07/17 21:00 Dose: 650 mg Ascorbic Acid (Vitamin C 500 Mg Tab) 500 mg GT DAILY [facility] Last Admin: 12/12/17 10:39 Dose: 500 mg Aspirin (Aspirin Chewable) 81 mg PO DAILY [facility] Last Admin: 12/08/17 09:55 Dose: 81 mg Bisacodyl (Dulcolax) 10 mg [place] Q24H PRN PRN Reason: Constipation Bisacodyl (Dulcolax) 10 mg [place] HS PRN PRN Reason: Constipation Diltiazem HCl (Cardizem) 60 mg PO Q6 [facility] Last Admin: 12/12/17 17:24 Dose: 60 mg Famotidine (Pepcid) 20 mg IVP DAILY [facility] Last Admin: 12/12/17 11:45 Dose: 20 mg Heparin Sodium (Porcine) (Heparin) 5,000 units SC Q8 [facility] Last Admin: 12/08/17 06:21 Dose: 5,000 units Linezolid (Zyvox 600mg/300ml D5w) 600 mg in 300 mls @ 200 mls/hr IVPB Q12 [facility] Last Admin: 12/12/17 10:36 Dose: 200 mls/hr Metronidazole (Flagyl) 500 mg in 100 mls @ 100 mls/hr IVPB Q8 [facility] Last Admin: 12/12/17 13:10 Dose: 100 mls/hr Insulin Aspart (Novolog) 0 unit SC Q6 [facility]NA PRN Reason: Protocol Last Admin: 12/12/17 17:31 Dose: 4 unit Insulin Detemir (Levemir) 10 unit SC HS [facility] Last Admin: 12/11/17 21:31 Dose: 10 unit Latanoprost (Xalatan Opht) 0 ml OD HS [facility] Last Admin: 12/11/17 21:33 Dose: 2.5 ml Metoclopramide HCl (Reglan) 5 mg [place] 0600,1130,1630,2200 PRN PRN Reason: Constipation Metoprolol Tartrate (Lopressor) 25 mg PO BID [facility] Last Admin: 12/12/17 17:25 Dose: 25 mg Multivitamins/Vitamin C (Multi-Delyn Liquid) 5 ml PO DAILY [facility] Last Admin: 12/12/17 10:41 Dose: 5 ml Sennosides (Senokot Tab) 8.6 mg PO DAILY [facility] Last Admin: 12/12/17 10:44 Dose: 8.6 mg Sodium Bicarbonate (Sodium Bicarbonate Tab) 650 mg PO BID [facility] Last Admin: 12/12/17 17:25 Dose: 650 mg - Labs Labs: 12/12/17 06:17 12/12/17 17:32 PT 13.1 SECONDS (9.7-12.2) H 12/09/17 01:33 INR 1.2 12/09/17 01:33 APTT 32 SECONDS (21-34) 12/09/17 01:33
[2017-12-12] MEDS: Latanoprost 2.5 ml Opht Soln OD SCH (21:30)
[2017-12-12] MEDS: Insulin Detemir 100 units/ml Vial (Levemir) SC SCH (22:38)
[2017-12-13] MEDS: (Novolog) Insulin Aspart, Recombinant 100 u/ml 10 ml vial SC SCH ×4 (02:46→17:30)
[2017-12-13] MEDS ORDERED: Metoprolol 1 mg/ml Inj IVP ONE (03:12)
[2017-12-13 04:55] LABS: ABG ALLEN TEST POS; ARTERIAL BLOOD GAS HCO3 24.2 mmol/L (21-28); ARTERIAL BLOOD GAS HEMOGLOBIN 13.4 g/dL (11.7-17.4); ARTERIAL BLOOD GAS O2 SAT 99.5 % (95-98); ARTERIAL BLOOD GAS PCO2 29 mm/Hg (35-45); ARTERIAL BLOOD GAS PH 7.48 (7.35-7.45); ARTERIAL BLOOD GAS PO2 132 mm/Hg (80-100); ARTERIAL BLOOD GAS TCO2 22.5 mmol/L (22-28)
[2017-12-13] MEDS: metroNIDAZOLE IV 500 mg/100 ml 500 MG/100 ML BAG IVPB SCH ×3 (05:00→21:33)
[2017-12-13 06:50] LABS: BASO % 0.1 % (0.0-2.0); EOS % 0.1 % (0.0-4.0); HEMOGLOBIN 11.1 g/dL (12.0-18.0); LYMPH # 0.7 K/uL (1.0-4.3); LYMPH % 3.7 % (20.0-40.0); MEAN CELL VOLUME 82.7 fL (80.0-94.0); MEAN CORPUSCULAR HEMOGLOBIN 27.4 pg (27.0-31.0); MEAN CORPUSCULAR HGB CONC 33.1 g/dL (33.0-37.0); MEAN PLATELET VOLUME 9.8 fL (7.2-11.7); MONO # 0.7 K/uL (0.0-0.8); MONO % 3.6 % (0.0-10.0); NEUT % 92.5 % (50.0-75.0); PLATELET COUNT 184 K/uL (130-400); RBC 4.05 Mil/uL (4.40-5.90); RED CELL DISTRIBUTION WIDTH 16.8 % (11.5-14.5); WHITE BLOOD COUNT 18.3 K/uL (4.8-10.8)
[2017-12-13 06:59] LABS: ALB/GLOB RATIO 1.2 (1.0-2.1); ALBUMIN 2.6 g/dL (3.5-5.0); CALCIUM 7.9 mg/dl (8.6-10.4); MAGNESIUM 1.7 mg/dL (1.6-2.3)
--- NOTE | 2017-12-13 07:01 | CP.PCM.PN ---
Subjective - Date & Time of Evaluation Date of Evaluation: 12/13/17 Time of Evaluation: 06:54 - Subjective Subjective: Mr. Yoon was seen and examined at the bedside in ICU. He openes his eyes as response to tactile stimuli. He remains om a trach with CPAP mode. He moves the left upper extremity as a response also to a tactile stimuli, with no movement noted on th eright upper extremity. Bilateral lower extremities moves as response to noxious stimuli. CT of the head(12/11/2017) showed diffuse atrophy. Right ventriculostomy catheter. No hydrocephalus. No intracranial mass, hemorrahge or evidence of acute infarct. Bilateral nonspecific mastoid effusion with small amount of fluid/ soft tissue density in the right middle ear cavity common non-specific. There was no untoward events overnight. Objective - Vital Signs/Intake and Output Vital Signs (last 24 hours): Temp Pulse Resp BP Pulse Ox 98.2 F 94 H 24 128/87 98 12/13/17 04:00 12/13/17 05:00 12/13/17 05:00 12/13/17 04:59 12/13/17 05:00 Intake and Output: 12/12/17 12/13/17 18:59 06:59 Intake Total 2110 1090 Output Total 1135 70 Balance 975 1020 - Medications Medications: Current Medications Acetaminophen (Tylenol 650mg/20.3ml Solution Ud) 650 mg PO Q6 PRN PRN Reason: fever Last Admin: 12/07/17 21:00 Dose: 650 mg Ascorbic Acid (Vitamin C 500 Mg Tab) 500 mg GT DAILY [facility] Last Admin: 12/12/17 10:39 Dose: 500 mg Aspirin (Aspirin Chewable) 81 mg PO DAILY [facility] Last Admin: 12/08/17 09:55 Dose: 81 mg Bisacodyl (Dulcolax) 10 mg [place] Q24H PRN PRN Reason: Constipation Bisacodyl (Dulcolax) 10 mg [place] HS PRN PRN Reason: Constipation Diltiazem HCl (Cardizem) 60 mg PO Q6 [facility] Last Admin: 12/13/17 06:08 Dose: 60 mg Famotidine (Pepcid) 20 mg IVP DAILY [facility] Last Admin: 12/12/17 11:45 Dose: 20 mg Heparin Sodium (Porcine) (Heparin) 5,000 units SC Q8 [facility] Last Admin: 12/08/17 06:21 Dose: 5,000 units Linezolid (Zyvox 600mg/300ml D5w) 600 mg in 300 mls @ 200 mls/hr IVPB Q12 [facility] Last Admin: 12/12/17 22:24 Dose: 200 mls/hr Metronidazole (Flagyl) 500 mg in 100 mls @ 100 mls/hr IVPB Q8 [facility] Last Admin: 12/13/17 05:00 Dose: 100 mls/hr Insulin Aspart (Novolog) 0 unit SC Q6 [facility] PRN Reason: Protocol Last Admin: 12/13/17 02:46 Dose: 1 unit Insulin Detemir (Levemir) 10 unit SC HS [facility] Last Admin: 12/12/17 22:38 Dose: 10 unit Latanoprost (Xalatan Opht) 0 ml OD HS [facility] Last Admin: 12/12/17 21:30 Dose: 2.5 ml Metoclopramide HCl (Reglan) 5 mg [place] 0600,1130,1630,2200 PRN PRN Reason: Constipation Metoprolol Tartrate (Lopressor) 25 mg PO BID [facility] Last Admin: 12/12/17 17:25 Dose: 25 mg Multivitamins/Vitamin C (Multi-Delyn Liquid) 5 ml PO DAILY [facility] Last Admin: 12/12/17 10:41 Dose: 5 ml Sennosides (Senokot Tab) 8.6 mg PO DAILY [facility] Last Admin: 12/12/17 10:44 Dose: 8.6 mg Sodium Bicarbonate (Sodium Bicarbonate Tab) 650 mg PO BID [facility] Last Admin: 12/12/17 17:25 Dose: 650 mg - Labs Labs: 12/13/17 06:40 12/12/17 17:32 PT 13.1 SECONDS (9.7-12.2) H 12/09/17 01:33 INR 1.2 12/09/17 01:33 APTT 32 SECONDS (21-34) 12/09/17 01:33 - Constitutional Appears: No Acute Distress - Head Exam Head Exam: NORMAL INSPECTION - Neurological Exam Neurological Exam: Awake Neuro motor strength exam: Left Upper Extremity: 2/1, Right Upper Extremity: 0, Left Lower Extremity: 0, Right Lower Extremity: 0 Additional comments: Neurological unchanged from previous examination. Assessment and Plan (1) Sepsis Assessment & Plan: Case discussed with Dr. Patricio, continue all current medical regimen. Recommend to treat underlying infection and electrolyte abnormalities. Status: Acute
[2017-12-13 08:29] LABS: ANISOCYTOSIS SLIGHT; HYPOCHROMIC SLIGHT; LYMPHOCYTE 3 % (20-40); MONOCYTE 1 % (0-10); NEUTROPHIL 96 % (50-75); PLATELET ESTIMATE NORMAL (NORMAL); TOTAL CELLS COUNTED 100
[2017-12-13 08:31] LABS: OVALOCYTES SLIGHT; TEARDROP CELLS SLIGHT
[2017-12-13] MEDS: Multiple Vitamins Oral Solution PO SCH (09:23)
[2017-12-13] MEDS: Linezolid 600 mg in D5W 300 ml 600 MG/300 ML BAG IVPB SCH ×2 (09:24→22:39)
--- NOTE | 2017-12-13 13:15 | CP.PCM.PN ---
Subjective - Date & Time of Evaluation Date of Evaluation: 12/13/17 Time of Evaluation: 13:12 - Subjective Subjective: remains vented, trach, not responsive on GT feeds low K being rep[leted UO good Na increasing Objective - Vital Signs/Intake and Output Vital Signs (last 24 hours): Temp Pulse Resp BP Pulse Ox 98.9 F 90 23 126/74 99 12/13/17 08:00 12/13/17 11:00 12/13/17 11:00 12/13/17 10:57 12/13/17 11:00 Intake and Output: 12/13/17 12/13/17 06:59 18:59 Intake Total 1140 680 Output Total 1120 585 Balance 20 95 - Medications Medications: Current Medications Acetaminophen (Tylenol 650mg/20.3ml Solution Ud) 650 mg PO Q6 PRN PRN Reason: fever Last Admin: 12/07/17 21:00 Dose: 650 mg Ascorbic Acid (Vitamin C 500 Mg Tab) 500 mg GT DAILY [facility] Last Admin: 12/13/17 09:22 Dose: 500 mg Aspirin (Aspirin Chewable) 81 mg PO DAILY [facility] Last Admin: 12/08/17 09:55 Dose: 81 mg Bisacodyl (Dulcolax) 10 mg [place] Q24H PRN PRN Reason: Constipation Bisacodyl (Dulcolax) 10 mg [place] HS PRN PRN Reason: Constipation Diltiazem HCl (Cardizem) 60 mg PO Q6 [facility] Last Admin: 12/13/17 11:15 Dose: 60 mg Famotidine (Pepcid) 20 mg IVP DAILY [facility] Last Admin: 12/13/17 10:39 Dose: 20 mg Heparin Sodium (Porcine) (Heparin) 5,000 units SC Q8 [facility] Last Admin: 12/08/17 06:21 Dose: 5,000 units Linezolid (Zyvox 600mg/300ml D5w) 600 mg in 300 mls @ 200 mls/hr IVPB Q12 [facility] Last Admin: 12/13/17 09:24 Dose: 200 mls/hr Metronidazole (Flagyl) 500 mg in 100 mls @ 100 mls/hr IVPB Q8 [facility] Last Admin: 12/13/17 13:06 Dose: 100 mls/hr Potassium Chloride (Potassium Chloride 20 Meq/100 Ml) 20 meq in 100 mls @ 50 mls/hr IVPB ONCE ONE Stop: 12/13/17 15:59 Last Admin: 12/13/17 13:07 Dose: 50 mls/hr Insulin Aspart (Novolog) 0 unit SC Q6 [facility] PRN Reason: Protocol Last Admin: 12/13/17 11:55 Dose: 4 unit Insulin Detemir (Levemir) 10 unit SC HS [facility] Last Admin: 12/12/17 22:38 Dose: 10 unit Latanoprost (Xalatan Opht) 0 ml OD HS [facility] Last Admin: 12/12/17 21:30 Dose: 2.5 ml Metoclopramide HCl (Reglan) 5 mg [place] 0600,1130,1630,2200 PRN PRN Reason: Constipation Metoprolol Tartrate (Lopressor) 25 mg PO BID [facility] Last Admin: 12/13/17 09:22 Dose: 25 mg Multivitamins/Vitamin C (Multi-Delyn Liquid) 5 ml PO DAILY [facility] Last Admin: 12/13/17 09:23 Dose: 5 ml Sennosides (Senokot Tab) 8.6 mg PO DAILY [facility] Last Admin: 12/13/17 09:24 Dose: Not Given Sodium Bicarbonate (Sodium Bicarbonate Tab) 650 mg PO BID [facility] Last Admin: 12/13/17 09:24 Dose: 650 mg - Labs Labs: 12/13/17 06:40 12/13/17 06:37 PT 13.1 SECONDS (9.7-12.2) H 12/09/17 01:33 INR 1.2 12/09/17 01:33 APTT 32 SECONDS (21-34) 12/09/17 01:33 - Constitutional Appears: In Acute Distress, Chronically Ill - Head Exam Head Exam: ATRAUMATIC, NORMAL INSPECTION - Neck Exam Neck Exam: Normal Inspection. absent: Tenderness - Respiratory Exam Respiratory Exam: Rhonchi, Respiratory Distress - Cardiovascular Exam Cardiovascular Exam: REGULAR RHYTHM, +S1 - GI/Abdominal Exam GI & Abdominal Exam: Soft. absent: Tenderness - Extremities Exam Extremities Exam: Pedal Edema. absent: Tenderness - Skin Skin Exam: Dry, Warm Assessment and Plan (1) Pneumonia Status: Acute (2) Sepsis Status: Acute (3) Hypernatremia Status: Acute - Assessment and Plan (Free Text) Plan: add free water follow up lytes closely
--- NOTE | 2017-12-13 13:33 | CP.PCM.PN ---
Subjective - Date & Time of Evaluation Date of Evaluation: 12/13/17 Time of Evaluation: 13:33 Objective - Vital Signs/Intake and Output Vital Signs (last 24 hours): Temp Pulse Resp BP Pulse Ox 98.9 F 99 H 26 H 128/75 98 12/13/17 12:00 12/13/17 13:00 12/13/17 13:00 12/13/17 12:57 12/13/17 13:00 Intake and Output: 12/13/17 12/13/17 06:59 18:59 Intake Total 1140 1350 Output Total 1120 715 Balance 20 635 - Medications Medications: Current Medications Acetaminophen (Tylenol 650mg/20.3ml Solution Ud) 650 mg PO Q6 PRN PRN Reason: fever Last Admin: 12/07/17 21:00 Dose: 650 mg Ascorbic Acid (Vitamin C 500 Mg Tab) 500 mg GT DAILY [facility] Last Admin: 12/13/17 09:22 Dose: 500 mg Aspirin (Aspirin Chewable) 81 mg PO DAILY [facility] Last Admin: 12/08/17 09:55 Dose: 81 mg Bisacodyl (Dulcolax) 10 mg [place] Q24H PRN PRN Reason: Constipation Bisacodyl (Dulcolax) 10 mg [place] HS PRN PRN Reason: Constipation Diltiazem HCl (Cardizem) 60 mg PO Q6 [facility] Last Admin: 12/13/17 11:15 Dose: 60 mg Famotidine (Pepcid) 20 mg IVP DAILY [facility] Last Admin: 12/13/17 10:39 Dose: 20 mg Heparin Sodium (Porcine) (Heparin) 5,000 units SC Q8 [facility] Last Admin: 12/08/17 06:21 Dose: 5,000 units Linezolid (Zyvox 600mg/300ml D5w) 600 mg in 300 mls @ 200 mls/hr IVPB Q12 [facility] Last Admin: 12/13/17 09:24 Dose: 200 mls/hr Metronidazole (Flagyl) 500 mg in 100 mls @ 100 mls/hr IVPB Q8 [facility] Last Admin: 12/13/17 13:06 Dose: 100 mls/hr Potassium Chloride (Potassium Chloride 20 Meq/100 Ml) 20 meq in 100 mls @ 50 mls/hr IVPB ONCE ONE Stop: 12/13/17 15:59 Last Admin: 12/13/17 13:07 Dose: 50 mls/hr Insulin Aspart (Novolog) 0 unit SC Q6 [facility] PRN Reason: Protocol Last Admin: 12/13/17 11:55 Dose: 4 unit Insulin Detemir (Levemir) 10 unit SC HS [facility] Last Admin: 12/12/17 22:38 Dose: 10 unit Latanoprost (Xalatan Opht) 0 ml OD HS [facility] Last Admin: 12/12/17 21:30 Dose: 2.5 ml Metoclopramide HCl (Reglan) 5 mg [place] 0600,1130,1630,2200 PRN PRN Reason: Constipation Metoprolol Tartrate (Lopressor) 25 mg PO BID [facility] Last Admin: 12/13/17 09:22 Dose: 25 mg Multivitamins/Vitamin C (Multi-Delyn Liquid) 5 ml PO DAILY [facility] Last Admin: 12/13/17 09:23 Dose: 5 ml Sennosides (Senokot Tab) 8.6 mg PO DAILY [facility] Last Admin: 12/13/17 09:24 Dose: Not Given Sodium Bicarbonate (Sodium Bicarbonate Tab) 650 mg PO BID [facility] Last Admin: 12/13/17 09:24 Dose: 650 mg - Labs Labs: 12/13/17 06:40 12/13/17 06:37 PT 13.1 SECONDS (9.7-12.2) H 12/09/17 01:33 INR 1.2 12/09/17 01:33 APTT 32 SECONDS (21-34) 12/09/17 01:33
--- NOTE | 2017-12-13 14:12 | CP.PCM.PN ---
Subjective - Date & Time of Evaluation Date of Evaluation: 12/13/17 Time of Evaluation: 15:20 - Subjective Subjective: clinically same Objective - Vital Signs/Intake and Output Vital Signs (last 24 hours): Temp Pulse Resp BP Pulse Ox 98.9 F 99 H 26 H 128/75 98 12/13/17 12:00 12/13/17 13:00 12/13/17 13:00 12/13/17 12:57 12/13/17 13:00 Intake and Output: 12/13/17 12/13/17 06:59 18:59 Intake Total 1140 1350 Output Total 1120 715 Balance 20 635 - Medications Medications: Current Medications Acetaminophen (Tylenol 650mg/20.3ml Solution Ud) 650 mg PO Q6 PRN PRN Reason: fever Last Admin: 12/07/17 21:00 Dose: 650 mg Ascorbic Acid (Vitamin C 500 Mg Tab) 500 mg GT DAILY [facility] Last Admin: 12/13/17 09:22 Dose: 500 mg Aspirin (Aspirin Chewable) 81 mg PO DAILY [facility] Last Admin: 12/08/17 09:55 Dose: 81 mg Bisacodyl (Dulcolax) 10 mg PA Q24H PRN PRN Reason: Constipation Bisacodyl (Dulcolax) 10 mg PA HS PRN PRN Reason: Constipation Diltiazem HCl (Cardizem) 60 mg PO Q6 [facility] Last Admin: 12/13/17 11:15 Dose: 60 mg Famotidine (Pepcid) 20 mg IVP DAILY [facility] Last Admin: 12/13/17 10:39 Dose: 20 mg Heparin Sodium (Porcine) (Heparin) 5,000 units SC Q8 [facility] Last Admin: 12/08/17 06:21 Dose: 5,000 units Linezolid (Zyvox 600mg/300ml D5w) 600 mg in 300 mls @ 200 mls/hr IVPB Q12 [facility] Last Admin: 12/13/17 09:24 Dose: 200 mls/hr Metronidazole (Flagyl) 500 mg in 100 mls @ 100 mls/hr IVPB Q8 [facility] Last Admin: 12/13/17 13:06 Dose: 100 mls/hr Potassium Chloride (Potassium Chloride 20 Meq/100 Ml) 20 meq in 100 mls @ 50 mls/hr IVPB ONCE ONE Stop: 12/13/17 15:59 Last Admin: 12/13/17 13:07 Dose: 50 mls/hr Insulin Aspart (Novolog) 0 unit SC Q6 [facility] PRN Reason: Protocol Last Admin: 12/13/17 11:55 Dose: 4 unit Insulin Detemir (Levemir) 10 unit SC HS [facility] Last Admin: 12/12/17 22:38 Dose: 10 unit Latanoprost (Xalatan Opht) 0 ml OD HS [facility] Last Admin: 12/12/17 21:30 Dose: 2.5 ml Metoclopramide HCl (Reglan) 5 mg GT 0600,1130,1630,2200 PRN PRN Reason: Constipation Metoprolol Tartrate (Lopressor) 25 mg PO BID [facility] Last Admin: 12/13/17 09:22 Dose: 25 mg Multivitamins/Vitamin C (Multi-Delyn Liquid) 5 ml PO DAILY [facility] Last Admin: 12/13/17 09:23 Dose: 5 ml Sennosides (Senokot Tab) 8.6 mg PO DAILY [facility] Last Admin: 12/13/17 09:24 Dose: Not Given Sodium Bicarbonate (Sodium Bicarbonate Tab) 650 mg PO BID [facility] Last Admin: 12/13/17 09:24 Dose: 650 mg - Labs Labs: 12/13/17 06:40 12/13/17 06:37 PT 13.1 SECONDS (9.7-12.2) H 12/09/17 01:33 INR 1.2 12/09/17 01:33 APTT 32 SECONDS (21-34) 12/09/17 01:33 - Constitutional Appears: Well - Head Exam Head Exam: ATRAUMATIC, NORMAL INSPECTION, NORMOCEPHALIC - Eye Exam Eye Exam: EOMI, Normal appearance, PERRL Pupil Exam: NORMAL ACCOMODATION, PERRL - ENT Exam ENT Exam: Mucous Membranes Moist, Normal Exam - Neck Exam Neck Exam: Full ROM, Normal Inspection. absent: Lymphadenopathy - Respiratory Exam Respiratory Exam: Decreased Breath Sounds - Cardiovascular Exam Cardiovascular Exam: REGULAR RHYTHM, +S1, +S2 - GI/Abdominal Exam GI & Abdominal Exam: Soft, Diminished Bowel Sounds - Rectal Exam Rectal Exam: Deferred Assessment and Plan (1) Bandemia Status: Acute (2) Dyspnea Status: Acute (3) Fever Status: Acute (4) Lethargy Status: Acute (5) Sepsis Status: Acute (6) Contusion Status: Acute (7) Fall Status: Acute
--- NOTE | 2017-12-13 14:57 | CP.CCUPN ---
<LuliEstrellan - Last Filed: 12/13/17 18:17> CCU Subjective - Physician Review Subjective (Free Text): 12/06/17 11:39 Patient seen and examined at bedside this A.M. Per nursing no acute events overnight Critical Care Time Spent (in minutes): 45 CCU Objective - Vital Signs / Intake & Output Vital Signs (Last 4 hours): Vital Signs Temp Pulse Resp BP Pulse Ox 12/13/17 14:00 79 30 H 136/91 H 98 12/13/17 13:00 99 H 26 H 98 12/13/17 12:57 104 H 25 H 128/75 98 12/13/17 12:00 98.9 F 107 H 26 H 99 12/13/17 11:57 103 H 25 H 139/70 98 12/13/17 11:00 90 23 99 Intake and Output (Last 8hrs): Intake & Output 12/12/17 12/13/17 12/13/17 22:59 06:59 14:59 Intake Total 3388 154 9921 Output Total 685 750 775 Balance 465 -250 775 Weight 206 lb 8 oz Intake: Intake, IV Amount 400 100 550 Right Distal Port 400 100 450 Internal Jugular Right Medial Port 100 Internal Jugular Right Proximal Port 0 Internal Jugular Oral 600 Tube Feeding 400 400 400 Other 350 Output: Urine 585 600 775 Urethral (Morgan) 585 600 775 Stool 100 150 Other: # Bowel Movements 1 1 0 - Physical Exam Head: Positive for: Atraumatic, Normocephalic Pupils: Positive for: PERRL Neck: Positive for: Other ((+)trach) Respiratory/Chest: Positive for: Decreased Breath Sounds Cardiovascular: Positive for: Normal S1, S2, Tachycardic Abdomen: Positive for: Normal Bowel Sounds. Negative for: Peritoneal Signs Upper Extremity: Positive for: Normal Inspection Lower Extremity: Positive for: Other (Pedal edema 2+) Neurological: Negative for: GCS=15, CN II-XII Intact - Medications Active Medications: Active Medications Generic Name Dose Route Start Last Admin Trade Name Freq PRN Reason Stop Dose Admin Acetaminophen 650 mg 12/02/17 07:49 12/07/17 21:00 Tylenol 650mg/20.3ml Solution Ud PO 650 mg Q6 PRN Administration fever Ascorbic Acid 500 mg 12/11/17 10:00 12/13/17 09:22 Vitamin C 500 Mg Tab GT 500 mg DAILY PRISCILA Administration Aspirin 81 mg 12/02/17 10:00 12/08/17 09:55 Aspirin Chewable PO 81 mg DAILY PRISCILA Administration Bisacodyl 10 mg 12/03/17 11:57 Dulcolax DE Q24H PRN Constipation Bisacodyl 10 mg 12/10/17 12:07 Dulcolax DE HS PRN Constipation Diltiazem HCl 60 mg 12/05/17 12:00 12/13/17 11:15 Cardizem PO 60 mg Q6 PRISCILA Administration Famotidine 20 mg 12/07/17 12:30 12/13/17 10:39 Pepcid IVP 20 mg DAILY PRISCILA Administration Heparin Sodium (Porcine) 5,000 units 12/07/17 22:00 12/08/17 06:21 Heparin SC 5,000 units Q8 PRISCILA Administration Linezolid 600 mg in 300 mls @ 200 mls/hr 12/05/17 10:00 12/13/17 09:24 Zyvox 600mg/300ml D5w IVPB 200 mls/hr Q12 PRISCILA Administration Metronidazole 500 mg in 100 mls @ 100 mls/hr 12/10/17 14:00 12/13/17 13:06 Flagyl IVPB 100 mls/hr Q8 PRISCILA Administration Potassium Chloride 20 meq in 100 mls @ 50 mls/hr 12/13/17 14:00 12/13/17 13: 07 Potassium Chloride 20 Meq/100 Ml IVPB 12/13/17 15:59 50 mls/hr ONCE ONE Administration Insulin Aspart 0 unit 12/11/17 00:53 12/13/17 11:55 Novolog SC 4 unit Q6 PRISCILA Administration Protocol Insulin Detemir 10 unit 12/08/17 22:00 12/12/17 22:38 Levemir SC 10 unit HS PRISCILA Administration Latanoprost 0 ml 12/01/17 23:45 12/12/17 21:30 Xalatan Opht OD 2.5 ml HS PRISCILA Administration Metoclopramide HCl 5 mg 12/10/17 12:06 Reglan GT 0600,1130,1630,2200 PRN Constipation Metoprolol Tartrate 25 mg 12/08/17 18:00 12/13/17 09:22 Lopressor PO 25 mg BID PRISCILA Administration Multivitamins/Vitamin C 5 ml 12/10/17 12:30 12/13/17 09:23 Multi-Delyn Liquid PO 5 ml DAILY PRISCILA Administration Sennosides 8.6 mg 12/11/17 10:00 12/13/17 09:24 Senokot Tab PO Not Given DAILY PRISCILA Sodium Bicarbonate 650 mg 12/06/17 18:00 12/13/17 09:24 Sodium Bicarbonate Tab PO 650 mg BID PRISCILA Administration - Patient Studies Lab Studies: Microbiology Studies 12/08/17 04:00 Blood Culture - Final Blood-Venous NO GROWTH AFTER 5 DAYS Gram Stain - Final TEST NOT PERFORMED 12/08/17 04:00 Blood Culture - Final Blood-Venous NO GROWTH AFTER 5 DAYS Lab Studies 12/13/17 12/13/17 12/13/17 Range/Units 06:40 06:37 05:40 WBC 18.3 H (4.8-10.8) K/uL RBC 4.05 L (4.40-5.90) Mil/uL Hgb 11.1 L (12.0-18.0) g/dL Hct 33.5 L (35.0-51.0) % MCV 82.7 (80.0-94.0) fL MCH 27.4 (27.0-31.0) pg MCHC 33.1 (33.0-37.0) g/dL RDW 16.8 H (11.5-14.5) % Plt Count 184 (130-400) K/uL MPV 9.8 (7.2-11.7) fL Neut % (Auto) 92.5 H (50.0-75.0) % Lymph % (Auto) 3.7 L (20.0-40.0) % [place] % (Auto) 3.6 (0.0-10.0) % Eos % (Auto) 0.1 (0.0-4.0) % Baso % (Auto) 0.1 (0.0-2.0) % Neut # (Auto) 17.0 H (1.8-7.0) K/uL Lymph # (Auto) 0.7 L (1.0-4.3) K/uL [place] # (Auto) 0.7 (0.0-0.8) K/uL Eos # (Auto) 0.0 (0.0-0.7) K/uL Baso # (Auto) 0.0 (0.0-0.2) K/uL Neutrophils % (Manual) 96 H (50-75) % Lymphocytes % (Manual) 3 L (20-40) % Monocytes % (Manual) 1 (0-10) % Platelet Estimate Normal (NORMAL) Hypochromasia (manual) Slight Anisocytosis (manual) Slight Tear Drop Cells Slight Ovalocytes Slight Puncture Site pCO2 (35-45) mm/Hg pO2 (80-100) mm/Hg HCO3 (21-28) mmol/L ABG pH (7.35-7.45) ABG Total CO2 (22-28) mmol/L ABG O2 Saturation (95-98) % ABG Base Excess (-2.0-3.0) mmol/L ABG Hemoglobin (11.7-17.4) g/dL ABG Carboxyhemoglobin (0.5-1.5) % POC ABG HHb (Measured) (0.0-5.0) % ABG Methemoglobin (0.0-3.0) % Parviz Test A-a O2 Difference mm/Hg Respiratory Index Hgb O2 Saturation (95.0-98.0) % Vent Mode FiO2 % Pressure Support CPAP Sodium 153 H (132-148) mmol/L Potassium 3.3 L (3.6-5.2) mmol/L Chloride 117 H (98-107) mmol/L Carbon Dioxide 25 (22-30) mmol/L Anion Gap 14 (10-20) BUN 70 H (9-20) mg/dL Creatinine 1.4 (0.8-1.5) mg/dL Est GFR ( Amer) 58 Est GFR (Non-Af Amer) 48 POC Glucose (mg/dL) 196 H (65-110) mg/dL Random Glucose 192 H (75-110) mg/dL Calcium 7.9 L (8.6-10.4) mg/dl Phosphorus 3.0 (2.5-4.5) mg/dL Magnesium 1.7 (1.6-2.3) mg/dL Total Bilirubin 0.3 (0.2-1.3) mg/dL AST 21 (17-59) U/L ALT 42 (21-72) U/L Alkaline Phosphatase 86 (38-126) U/L Total Protein 4.7 L (6.3-8.3) g/dL Albumin 2.6 L (3.5-5.0) g/dL Globulin 2.1 L (2.2-3.9) gm/dL Albumin/Globulin Ratio 1.2 (1.0-2.1) 12/13/17 12/13/17 12/12/17 Range/Units 04:45 00:34 17:32 WBC (4.8-10.8) K/uL RBC (4.40-5.90) Mil/uL Hgb (12.0-18.0) g/dL Hct (35.0-51.0) % MCV (80.0-94.0) fL MCH (27.0-31.0) pg MCHC (33.0-37.0) g/dL RDW (11.5-14.5) % Plt Count (130-400) K/uL MPV (7.2-11.7) fL Neut % (Auto) (50.0-75.0) % Lymph % (Auto) (20.0-40.0) % [place] % (Auto) (0.0-10.0) % Eos % (Auto) (0.0-4.0) % Baso % (Auto) (0.0-2.0) % Neut # (Auto) (1.8-7.0) K/uL Lymph # (Auto) (1.0-4.3) K/uL [place] # (Auto) (0.0-0.8) K/uL Eos # (Auto) (0.0-0.7) K/uL Baso # (Auto) (0.0-0.2) K/uL Neutrophils % (Manual) (50-75) % Lymphocytes % (Manual) (20-40) % Monocytes % (Manual) (0-10) % Platelet Estimate (NORMAL) Hypochromasia (manual) Anisocytosis (manual) Tear Drop Cells Ovalocytes Puncture Site Lr pCO2 29 L (35-45) mm/Hg pO2 132 H (80-100) mm/Hg HCO3 24.2 (21-28) mmol/L ABG pH 7.48 H (7.35-7.45) ABG Total CO2 22.5 (22-28) mmol/L ABG O2 Saturation 99.5 H (95-98) % ABG Base Excess -0.9 (-2.0-3.0) mmol/L ABG Hemoglobin 13.4 (11.7-17.4) g/dL ABG Carboxyhemoglobin 1.6 H (0.5-1.5) % POC ABG HHb (Measured) 0.5 (0.0-5.0) % ABG Methemoglobin 1.2 (0.0-3.0) % Parviz Test Pos A-a O2 Difference 46.0 mm/Hg Respiratory Index 0.3 Hgb O2 Saturation 96.7 (95.0-98.0) % Vent Mode Cpap FiO2 30.0 % Pressure Support 10 CPAP 5 Sodium 150 H (132-148) mmol/L Potassium 3.4 L (3.6-5.2) mmol/L Chloride 116 H (98-107) mmol/L Carbon Dioxide 23 (22-30) mmol/L Anion Gap 15 (10-20) BUN 71 H (9-20) mg/dL Creatinine 1.4 (0.8-1.5) mg/dL Est GFR ( Amer) 58 Est GFR (Non-Af Amer) 48 POC Glucose (mg/dL) 217 H (65-110) mg/dL Random Glucose 214 H (75-110) mg/dL Calcium 7.7 L (8.6-10.4) mg/dl Phosphorus (2.5-4.5) mg/dL Magnesium (1.6-2.3) mg/dL Total Bilirubin (0.2-1.3) mg/dL AST (17-59) U/L ALT (21-72) U/L Alkaline Phosphatase (38-126) U/L Total Protein (6.3-8.3) g/dL Albumin (3.5-5.0) g/dL Globulin (2.2-3.9) gm/dL Albumin/Globulin Ratio (1.0-2.1) 12/12/17 Range/Units 17:29 WBC (4.8-10.8) K/uL RBC (4.40-5.90) Mil/uL Hgb (12.0-18.0) g/dL Hct (35.0-51.0) % MCV (80.0-94.0) fL MCH (27.0-31.0) pg MCHC (33.0-37.0) g/dL RDW (11.5-14.5) % Plt Count (130-400) K/uL MPV (7.2-11.7) fL Neut % (Auto) (50.0-75.0) % Lymph % (Auto) (20.0-40.0) % [place] % (Auto) (0.0-10.0) % Eos % (Auto) (0.0-4.0) % Baso % (Auto) (0.0-2.0) % Neut # (Auto) (1.8-7.0) K/uL Lymph # (Auto) (1.0-4.3) K/uL [place] # (Auto) (0.0-0.8) K/uL Eos # (Auto) (0.0-0.7) K/uL Baso # (Auto) (0.0-0.2) K/uL Neutrophils % (Manual) (50-75) % Lymphocytes % (Manual) (20-40) % Monocytes % (Manual) (0-10) % Platelet Estimate (NORMAL) Hypochromasia (manual) Anisocytosis (manual) Tear Drop Cells Ovalocytes Puncture Site pCO2 (35-45) mm/Hg pO2 (80-100) mm/Hg HCO3 (21-28) mmol/L ABG pH (7.35-7.45) ABG Total CO2 (22-28) mmol/L ABG O2 Saturation (95-98) % ABG Base Excess (-2.0-3.0) mmol/L ABG Hemoglobin (11.7-17.4) g/dL ABG Carboxyhemoglobin (0.5-1.5) % POC ABG HHb (Measured) (0.0-5.0) % ABG Methemoglobin (0.0-3.0) % Parviz Test A-a O2 Difference mm/Hg Respiratory Index Hgb O2 Saturation (95.0-98.0) % Vent Mode FiO2 % Pressure Support CPAP Sodium (132-148) mmol/L Potassium (3.6-5.2) mmol/L Chloride (98-107) mmol/L Carbon Dioxide (22-30) mmol/L Anion Gap (10-20) BUN (9-20) mg/dL Creatinine (0.8-1.5) mg/dL Est GFR ( Amer) Est GFR (Non-Af Amer) POC Glucose (mg/dL) 225 H (65-110) mg/dL Random Glucose (75-110) mg/dL Calcium (8.6-10.4) mg/dl Phosphorus (2.5-4.5) mg/dL Magnesium (1.6-2.3) mg/dL Total Bilirubin (0.2-1.3) mg/dL AST (17-59) U/L ALT (21-72) U/L Alkaline Phosphatase (38-126) U/L Total Protein (6.3-8.3) g/dL Albumin (3.5-5.0) g/dL Globulin (2.2-3.9) gm/dL Albumin/Globulin Ratio (1.0-2.1) Laboratory Results - last 24 hr 12/12/17 12/12/17 12/13/17 17:29 17:32 00:34 WBC RBC Hgb Hct MCV MCH MCHC RDW Plt Count MPV Neut % (Auto) Lymph % (Auto) [place] % (Auto) Eos % (Auto) Baso % (Auto) Neut # (Auto) Lymph # (Auto) [place] # (Auto) Eos # (Auto) Baso # (Auto) Neutrophils % (Manual) Lymphocytes % (Manual) Monocytes % (Manual) Platelet Estimate Hypochromasia (manual) Anisocytosis (manual) Tear Drop Cells Ovalocytes Puncture Site pCO2 pO2 HCO3 ABG pH ABG Total CO2 ABG O2 Saturation ABG Base Excess ABG Hemoglobin ABG Carboxyhemoglobin POC ABG HHb (Measured) ABG Methemoglobin Parviz Test A-a O2 Difference Respiratory Index Hgb O2 Saturation Vent Mode FiO2 Pressure Support CPAP Sodium 150 H Potassium 3.4 L Chloride 116 H Carbon Dioxide 23 Anion Gap 15 BUN 71 H Creatinine 1.4 Est GFR ( Amer) 58 Est GFR (Non-Af Amer) 48 POC Glucose (mg/dL) 225 H 217 H Random Glucose 214 H Calcium 7.7 L Phosphorus Magnesium Total Bilirubin AST ALT Alkaline Phosphatase Total Protein Albumin Globulin Albumin/Globulin Ratio 12/13/17 12/13/17 12/13/17 04:45 05:40 06:37 WBC RBC Hgb Hct MCV MCH MCHC RDW Plt Count MPV Neut % (Auto) Lymph % (Auto) [place] % (Auto) Eos % (Auto) Baso % (Auto) Neut # (Auto) Lymph # (Auto) [place] # (Auto) Eos # (Auto) Baso # (Auto) Neutrophils % (Manual) Lymphocytes % (Manual) Monocytes % (Manual) Platelet Estimate Hypochromasia (manual) Anisocytosis (manual) Tear Drop Cells Ovalocytes Puncture Site Lr pCO2 29 L pO2 132 H HCO3 24.2 ABG pH 7.48 H ABG Total CO2 22.5 ABG O2 Saturation 99.5 H ABG Base Excess -0.9 ABG Hemoglobin 13.4 ABG Carboxyhemoglobin 1.6 H POC ABG HHb (Measured) 0.5 ABG Methemoglobin 1.2 Parviz Test Pos A-a O2 Difference 46.0 Respiratory Index 0.3 Hgb O2 Saturation 96.7 Vent Mode Cpap FiO2 30.0 Pressure Support 10 CPAP 5 Sodium 153 H Potassium 3.3 L Chloride 117 H Carbon Dioxide 25 Anion Gap 14 BUN 70 H Creatinine 1.4 Est GFR ( Amer) 58 Est GFR (Non-Af Amer) 48 POC Glucose (mg/dL) 196 H Random Glucose 192 H Calcium 7.9 L Phosphorus 3.0 Magnesium 1.7 Total Bilirubin 0.3 AST 21 ALT 42 Alkaline Phosphatase 86 Total Protein 4.7 L Albumin 2.6 L Globulin 2.1 L Albumin/Globulin Ratio 1.2 12/13/17 06:40 WBC 18.3 H RBC 4.05 L Hgb 11.1 L Hct 33.5 L MCV 82.7 MCH 27.4 MCHC 33.1 RDW 16.8 H Plt Count 184 MPV 9.8 Neut % (Auto) 92.5 H Lymph % (Auto) 3.7 L [place] % (Auto) 3.6 Eos % (Auto) 0.1 Baso % (Auto) 0.1 Neut # (Auto) 17.0 H Lymph # (Auto) 0.7 L [place] # (Auto) 0.7 Eos # (Auto) 0.0 Baso # (Auto) 0.0 Neutrophils % (Manual) 96 H Lymphocytes % (Manual) 3 L Monocytes % (Manual) 1 Platelet Estimate Normal Hypochromasia (manual) Slight Anisocytosis (manual) Slight Tear Drop Cells Slight Ovalocytes Slight Puncture Site pCO2 pO2 HCO3 ABG pH ABG Total CO2 ABG O2 Saturation ABG Base Excess ABG Hemoglobin ABG Carboxyhemoglobin POC ABG HHb (Measured) ABG Methemoglobin Parviz Test A-a O2 Difference Respiratory Index Hgb O2 Saturation Vent Mode FiO2 Pressure Support CPAP Sodium Potassium Chloride Carbon Dioxide Anion Gap BUN Creatinine Est GFR ( Amer) Est GFR (Non-Af Amer) POC Glucose (mg/dL) Random Glucose Calcium Phosphorus Magnesium Total Bilirubin AST ALT Alkaline Phosphatase Total Protein Albumin Globulin Albumin/Globulin Ratio Fingerstick Blood Sugar Results: 234 Review of Systems - Review of Systems Systems not reviewed;Unavailable: Acuity of Condition Assessment/Plan - Assessment and Plan (Free Text) Assessment: 87 y/o male with pmx of hydrocephalus requiring a shunt who was recently admitted to [facility] for respiratory distress. Patient was transferred to [facility] and brought back to [facility] for same complaint. Plan: Respiratory distress: s/p Trach: FiO2:30% continue ventilation suspect VQ mismatch 2nd aspiration staph/GPC, continue bronchodilators chest ct w/o contrast showed moderate pleurel effusion, CHF vs. Portal hypertension, findings suspicious PNA in right lung apex, gallstones and fluid adjacent to gallbladder, 2.6cm density in the Right upper lobe U/S for Pleural Effusion. Results showed not enough fluid to have pigtail cath placment. Will continue to watch. Continue CPAP trials today. Sepsis serial lactic LP reveals no WBC, non reactive to VDRL, elevated protein and glucose. no hydrocephalus as presusre only 5 de-escalate abx, pending HSV PCR continue Zyvox/aztronam/doxy repeat procal 1.15 AMS suspect chronic -continue peg tube feeds CAD/NSTEMI/P. A-fib./flutter: asa, statin. Cardizem 60mg Q6 obtain cardiology eval,monitor to keep MAP >65, Echo: EF 50%, mild to moderate concentric LVH, and mild M.R. HR controlled today Lopressor 25mg PO BID priscila. Continue Heparin 5000 units sc q8. SIMON Creatinine 1.4 today. 2nd sepsis/hypotension avoid nephrotoxic drgus Urine sodium:45, Urine osm:398, Urine Creatinine:268 DVT ppx heparin -pud ppx pepcid -bgm q6hrs,ISS <Joey,Kraig S - Last Filed: 12/13/17 18:32> CCU Subjective - Physician Review Critical Care Time Spent (in minutes): 30 CCU Objective - Vital Signs / Intake & Output Vital Signs (Last 4 hours): Vital Signs Temp Pulse Resp BP Pulse Ox 12/13/17 18:00 94 H 25 H 99 12/13/17 17:57 91 H 27 H 129/59 L 98 12/13/17 17:21 114/68 12/13/17 17:00 108 H 25 H 98 12/13/17 16:57 95 H 24 114/68 98 12/13/17 16:00 97.1 F L 98 12/13/17 15:59 143 H 17 130/74 99 12/13/17 15:00 113 H 24 98 12/13/17 14:57 113 H 30 H 142/67 98 Intake and Output (Last 8hrs): Intake & Output 12/13/17 12/13/17 12/13/17 06:59 14:59 22:59 Intake Total 500 1550 580 Output Total 750 775 290 Balance -250 775 290 Weight 206 lb 8 oz Intake: Intake, IV Amount 100 550 50 Right Distal Port 100 450 50 Internal Jugular Right Medial Port 100 0 Internal Jugular Right Proximal Port 0 0 Internal Jugular Oral 600 330 Tube Feeding 400 400 200 Output: Urine 600 775 290 Urethral (Morgan) 600 775 290 Stool 150 Other: # Bowel Movements 1 0 0 - Medications Active Medications: Active Medications Generic Name Dose Route Start Last Admin Trade Name Freq PRN Reason Stop Dose Admin Acetaminophen 650 mg 12/02/17 07:49 12/07/17 21:00 Tylenol 650mg/20.3ml Solution Ud PO 650 mg Q6 PRN Administration fever Ascorbic Acid 500 mg 12/11/17 10:00 12/13/17 09:22 Vitamin C 500 Mg Tab GT 500 mg DAILY PRISCILA Administration Aspirin 81 mg 12/02/17 10:00 12/08/17 09:55 Aspirin Chewable PO 81 mg DAILY PRISCILA Administration Bisacodyl 10 mg 12/03/17 11:57 Dulcolax DE Q24H PRN Constipation Bisacodyl 10 mg 12/10/17 12:07 Dulcolax DE HS PRN Constipation Diltiazem HCl 60 mg 12/05/17 12:00 12/13/17 17:21 Cardizem PO 60 mg Q6 PRISCILA Administration Famotidine 20 mg 12/07/17 12:30 12/13/17 10:39 Pepcid IVP 20 mg DAILY PRISCILA Administration Heparin Sodium (Porcine) 5,000 units 12/07/17 22:00 12/08/17 06:21 Heparin SC 5,000 units Q8 PRISCILA Administration Linezolid 600 mg in 300 mls @ 200 mls/hr 12/05/17 10:00 12/13/17 09:24 Zyvox 600mg/300ml D5w IVPB 200 mls/hr Q12 PRISCILA Administration Metronidazole 500 mg in 100 mls @ 100 mls/hr 12/10/17 14:00 12/13/17 13:06 Flagyl IVPB 100 mls/hr Q8 PRISCILA Administration Insulin Aspart 0 unit 12/11/17 00:53 12/13/17 17:30 Novolog SC 4 unit Q6 PRISCILA Administration Protocol Insulin Detemir 10 unit 12/08/17 22:00 12/12/17 22:38 Levemir SC 10 unit HS PRISCILA Administration Latanoprost 0 ml 12/01/17 23:45 12/12/17 21:30 Xalatan Opht OD 2.5 ml HS PRISCILA Administration Metoclopramide HCl 5 mg 12/10/17 12:06 Reglan GT 0600,1130,1630,2200 PRN Constipation Metoprolol Tartrate 25 mg 12/08/17 18:00 12/13/17 17:21 Lopressor PO 25 mg BID PRISCILA Administration Multivitamins/Vitamin C 5 ml 12/10/17 12:30 12/13/17 09:23 Multi-Delyn Liquid PO 5 ml DAILY PRISCILA Administration Sennosides 8.6 mg 12/11/17 10:00 12/13/17 09:24 Senokot Tab PO Not Given DAILY PRISCILA Sodium Bicarbonate 650 mg 12/06/17 18:00 12/13/17 17:21 Sodium Bicarbonate Tab PO 650 mg BID PRISCILA Administration - Patient Studies Lab Studies: Microbiology Studies 12/08/17 04:00 Blood Culture - Final Blood-Venous NO GROWTH AFTER 5 DAYS Gram Stain - Final TEST NOT PERFORMED 12/08/17 04:00 Blood Culture - Final Blood-Venous NO GROWTH AFTER 5 DAYS Lab Studies 12/13/17 12/13/17 12/13/17 Range/Units 17:25 11:12 06:40 WBC 18.3 H (4.8-10.8) K/uL RBC 4.05 L (4.40-5.90) Mil/uL Hgb 11.1 L (12.0-18.0) g/dL Hct 33.5 L (35.0-51.0) % MCV 82.7 (80.0-94.0) fL MCH 27.4 (27.0-31.0) pg MCHC 33.1 (33.0-37.0) g/dL RDW 16.8 H (11.5-14.5) % Plt Count 184 (130-400) K/uL MPV 9.8 (7.2-11.7) fL Neut % (Auto) 92.5 H (50.0-75.0) % Lymph % (Auto) 3.7 L (20.0-40.0) % [place] % (Auto) 3.6 (0.0-10.0) % Eos % (Auto) 0.1 (0.0-4.0) % Baso % (Auto) 0.1 (0.0-2.0) % Neut # (Auto) 17.0 H (1.8-7.0) K/uL Lymph # (Auto) 0.7 L (1.0-4.3) K/uL [place] # (Auto) 0.7 (0.0-0.8) K/uL Eos # (Auto) 0.0 (0.0-0.7) K/uL Baso # (Auto) 0.0 (0.0-0.2) K/uL Neutrophils % (Manual) 96 H (50-75) % Lymphocytes % (Manual) 3 L (20-40) % Monocytes % (Manual) 1 (0-10) % Platelet Estimate Normal (NORMAL) Hypochromasia (manual) Slight Anisocytosis (manual) Slight Tear Drop Cells Slight Ovalocytes Slight Puncture Site pCO2 (35-45) mm/Hg pO2 (80-100) mm/Hg HCO3 (21-28) mmol/L ABG pH (7.35-7.45) ABG Total CO2 (22-28) mmol/L ABG O2 Saturation (95-98) % ABG Base Excess (-2.0-3.0) mmol/L ABG Hemoglobin (11.7-17.4) g/dL ABG Carboxyhemoglobin (0.5-1.5) % POC ABG HHb (Measured) (0.0-5.0) % ABG Methemoglobin (0.0-3.0) % Parviz Test A-a O2 Difference mm/Hg Respiratory Index Hgb O2 Saturation (95.0-98.0) % Vent Mode FiO2 % Pressure Support CPAP Sodium (132-148) mmol/L Potassium (3.6-5.2) mmol/L Chloride (98-107) mmol/L Carbon Dioxide (22-30) mmol/L Anion Gap (10-20) BUN (9-20) mg/dL Creatinine (0.8-1.5) mg/dL Est GFR ( Amer) Est GFR (Non-Af Amer) POC Glucose (mg/dL) 209 H 234 H (65-110) mg/dL Random Glucose (75-110) mg/dL Calcium (8.6-10.4) mg/dl Phosphorus (2.5-4.5) mg/dL Magnesium (1.6-2.3) mg/dL Total Bilirubin (0.2-1.3) mg/dL AST (17-59) U/L ALT (21-72) U/L Alkaline Phosphatase (38-126) U/L Total Protein (6.3-8.3) g/dL Albumin (3.5-5.0) g/dL Globulin (2.2-3.9) gm/dL Albumin/Globulin Ratio (1.0-2.1) 12/13/17 12/13/17 12/13/17 Range/Units 06:37 05:40 04:45 WBC (4.8-10.8) K/uL RBC (4.40-5.90) Mil/uL Hgb (12.0-18.0) g/dL Hct (35.0-51.0) % MCV (80.0-94.0) fL MCH (27.0-31.0) pg MCHC (33.0-37.0) g/dL RDW (11.5-14.5) % Plt Count (130-400) K/uL MPV (7.2-11.7) fL Neut % (Auto) (50.0-75.0) % Lymph % (Auto) (20.0-40.0) % [place] % (Auto) (0.0-10.0) % Eos % (Auto) (0.0-4.0) % Baso % (Auto) (0.0-2.0) % Neut # (Auto) (1.8-7.0) K/uL Lymph # (Auto) (1.0-4.3) K/uL [place] # (Auto) (0.0-0.8) K/uL Eos # (Auto) (0.0-0.7) K/uL Baso # (Auto) (0.0-0.2) K/uL Neutrophils % (Manual) (50-75) % Lymphocytes % (Manual) (20-40) % Monocytes % (Manual) (0-10) % Platelet Estimate (NORMAL) Hypochromasia (manual) Anisocytosis (manual) Tear Drop Cells Ovalocytes Puncture Site Lr pCO2 29 L (35-45) mm/Hg pO2 132 H (80-100) mm/Hg HCO3 24.2 (21-28) mmol/L ABG pH 7.48 H (7.35-7.45) ABG Total CO2 22.5 (22-28) mmol/L ABG O2 Saturation 99.5 H (95-98) % ABG Base Excess -0.9 (-2.0-3.0) mmol/L ABG Hemoglobin 13.4 (11.7-17.4) g/dL ABG Carboxyhemoglobin 1.6 H (0.5-1.5) % POC ABG HHb (Measured) 0.5 (0.0-5.0) % ABG Methemoglobin 1.2 (0.0-3.0) % Parviz Test Pos A-a O2 Difference 46.0 mm/Hg Respiratory Index 0.3 Hgb O2 Saturation 96.7 (95.0-98.0) % Vent Mode Cpap FiO2 30.0 % Pressure Support 10 CPAP 5 Sodium 153 H (132-148) mmol/L Potassium 3.3 L (3.6-5.2) mmol/L Chloride 117 H (98-107) mmol/L Carbon Dioxide 25 (22-30) mmol/L Anion Gap 14 (10-20) BUN 70 H (9-20) mg/dL Creatinine 1.4 (0.8-1.5) mg/dL Est GFR ( Amer) 58 Est GFR (Non-Af Amer) 48 POC Glucose (mg/dL) 196 H (65-110) mg/dL Random Glucose 192 H (75-110) mg/dL Calcium 7.9 L (8.6-10.4) mg/dl Phosphorus 3.0 (2.5-4.5) mg/dL Magnesium 1.7 (1.6-2.3) mg/dL Total Bilirubin 0.3 (0.2-1.3) mg/dL AST 21 (17-59) U/L ALT 42 (21-72) U/L Alkaline Phosphatase 86 (38-126) U/L Total Protein 4.7 L (6.3-8.3) g/dL Albumin 2.6 L (3.5-5.0) g/dL Globulin 2.1 L (2.2-3.9) gm/dL Albumin/Globulin Ratio 1.2 (1.0-2.1) 12/13/17 Range/Units 00:34 WBC (4.8-10.8) K/uL RBC (4.40-5.90) Mil/uL Hgb (12.0-18.0) g/dL Hct (35.0-51.0) % MCV (80.0-94.0) fL MCH (27.0-31.0) pg MCHC (33.0-37.0) g/dL RDW (11.5-14.5) % Plt Count (130-400) K/uL MPV (7.2-11.7) fL Neut % (Auto) (50.0-75.0) % Lymph % (Auto) (20.0-40.0) % [place] % (Auto) (0.0-10.0) % Eos % (Auto) (0.0-4.0) % Baso % (Auto) (0.0-2.0) % Neut # (Auto) (1.8-7.0) K/uL Lymph # (Auto) (1.0-4.3) K/uL [place] # (Auto) (0.0-0.8) K/uL Eos # (Auto) (0.0-0.7) K/uL Baso # (Auto) (0.0-0.2) K/uL Neutrophils % (Manual) (50-75) % Lymphocytes % (Manual) (20-40) % Monocytes % (Manual) (0-10) % Platelet Estimate (NORMAL) Hypochromasia (manual) Anisocytosis (manual) Tear Drop Cells Ovalocytes Puncture Site pCO2 (35-45) mm/Hg pO2 (80-100) mm/Hg HCO3 (21-28) mmol/L ABG pH (7.35-7.45) ABG Total CO2 (22-28) mmol/L ABG O2 Saturation (95-98) % ABG Base Excess (-2.0-3.0) mmol/L ABG Hemoglobin (11.7-17.4) g/dL ABG Carboxyhemoglobin (0.5-1.5) % POC ABG HHb (Measured) (0.0-5.0) % ABG Methemoglobin (0.0-3.0) % Parviz Test A-a O2 Difference mm/Hg Respiratory Index Hgb O2 Saturation (95.0-98.0) % Vent Mode FiO2 % Pressure Support CPAP Sodium (132-148) mmol/L Potassium (3.6-5.2) mmol/L Chloride (98-107) mmol/L Carbon Dioxide (22-30) mmol/L Anion Gap (10-20) BUN (9-20) mg/dL Creatinine (0.8-1.5) mg/dL Est GFR ( Amer) Est GFR (Non-Af Amer) POC Glucose (mg/dL) 217 H (65-110) mg/dL Random Glucose (75-110) mg/dL Calcium (8.6-10.4) mg/dl Phosphorus (2.5-4.5) mg/dL Magnesium (1.6-2.3) mg/dL Total Bilirubin (0.2-1.3) mg/dL AST (17-59) U/L ALT (21-72) U/L Alkaline Phosphatase (38-126) U/L Total Protein (6.3-8.3) g/dL Albumin (3.5-5.0) g/dL Globulin (2.2-3.9) gm/dL Albumin/Globulin Ratio (1.0-2.1) Laboratory Results - last 24 hr 12/13/17 12/13/17 12/13/17 00:34 04:45 05:40 WBC RBC Hgb Hct MCV MCH MCHC RDW Plt Count MPV Neut % (Auto) Lymph % (Auto) [place] % (Auto) Eos % (Auto) Baso % (Auto) Neut # (Auto) Lymph # (Auto) [place] # (Auto) Eos # (Auto) Baso # (Auto) Neutrophils % (Manual) Lymphocytes % (Manual) Monocytes % (Manual) Platelet Estimate Hypochromasia (manual) Anisocytosis (manual) Tear Drop Cells Ovalocytes Puncture Site Lr pCO2 29 L pO2 132 H HCO3 24.2 ABG pH 7.48 H ABG Total CO2 22.5 ABG O2 Saturation 99.5 H ABG Base Excess -0.9 ABG Hemoglobin 13.4 ABG Carboxyhemoglobin 1.6 H POC ABG HHb (Measured) 0.5 ABG Methemoglobin 1.2 Parviz Test Pos A-a O2 Difference 46.0 Respiratory Index 0.3 Hgb O2 Saturation 96.7 Vent Mode Cpap FiO2 30.0 Pressure Support 10 CPAP 5 Sodium Potassium Chloride Carbon Dioxide Anion Gap BUN Creatinine Est GFR ( Amer) Est GFR (Non-Af Amer) POC Glucose (mg/dL) 217 H 196 H Random Glucose Calcium Phosphorus Magnesium Total Bilirubin AST ALT Alkaline Phosphatase Total Protein Albumin Globulin Albumin/Globulin Ratio 12/13/17 12/13/17 12/13/17 06:37 06:40 11:12 WBC 18.3 H RBC 4.05 L Hgb 11.1 L Hct 33.5 L MCV 82.7 MCH 27.4 MCHC 33.1 RDW 16.8 H Plt Count 184 MPV 9.8 Neut % (Auto) 92.5 H Lymph % (Auto) 3.7 L [place] % (Auto) 3.6 Eos % (Auto) 0.1 Baso % (Auto) 0.1 Neut # (Auto) 17.0 H Lymph # (Auto) 0.7 L [place] # (Auto) 0.7 Eos # (Auto) 0.0 Baso # (Auto) 0.0 Neutrophils % (Manual) 96 H Lymphocytes % (Manual) 3 L Monocytes % (Manual) 1 Platelet Estimate Normal Hypochromasia (manual) Slight Anisocytosis (manual) Slight Tear Drop Cells Slight Ovalocytes Slight Puncture Site pCO2 pO2 HCO3 ABG pH ABG Total CO2 ABG O2 Saturation ABG Base Excess ABG Hemoglobin ABG Carboxyhemoglobin POC ABG HHb (Measured) ABG Methemoglobin Parviz Test A-a O2 Difference Respiratory Index Hgb O2 Saturation Vent Mode FiO2 Pressure Support CPAP Sodium 153 H Potassium 3.3 L Chloride 117 H Carbon Dioxide 25 Anion Gap 14 BUN 70 H Creatinine 1.4 Est GFR ( Amer) 58 Est GFR (Non-Af Amer) 48 POC Glucose (mg/dL) 234 H Random Glucose 192 H Calcium 7.9 L Phosphorus 3.0 Magnesium 1.7 Total Bilirubin 0.3 AST 21 ALT 42 Alkaline Phosphatase 86 Total Protein 4.7 L Albumin 2.6 L Globulin 2.1 L Albumin/Globulin Ratio 1.2 12/13/17 17:25 WBC RBC Hgb Hct MCV MCH MCHC RDW Plt Count MPV Neut % (Auto) Lymph % (Auto) [place] % (Auto) Eos % (Auto) Baso % (Auto) Neut # (Auto) Lymph # (Auto) [place] # (Auto) Eos # (Auto) Baso # (Auto) Neutrophils % (Manual) Lymphocytes % (Manual) Monocytes % (Manual) Platelet Estimate Hypochromasia (manual) Anisocytosis (manual) Tear Drop Cells Ovalocytes Puncture Site pCO2 pO2 HCO3 ABG pH ABG Total CO2 ABG O2 Saturation ABG Base Excess ABG Hemoglobin ABG Carboxyhemoglobin POC ABG HHb (Measured) ABG Methemoglobin Parviz Test A-a O2 Difference Respiratory Index Hgb O2 Saturation Vent Mode FiO2 Pressure Support CPAP Sodium Potassium Chloride Carbon Dioxide Anion Gap BUN Creatinine Est GFR ( Amer) Est GFR (Non-Af Amer) POC Glucose (mg/dL) 209 H Random Glucose Calcium Phosphorus Magnesium Total Bilirubin AST ALT Alkaline Phosphatase Total Protein Albumin Globulin Albumin/Globulin Ratio Attending/Attestation - Attestation I have personally seen and examined this patient.: Yes I have fully participated in the care of the patient.: Yes I have reviewed all pertinent clinical information: Yes Notes (Text): 12/13/17 18:31 patient seen and examined in the intensive care unit. Status post tracheostomy and PEG tube insertion Being treated for pneumonia CPAP trial Continue present treatment and LTACH eval
[2017-12-13] MEDS: Insulin Detemir 100 units/ml Vial (Levemir) SC SCH (21:33)
[2017-12-13] MEDS: Latanoprost 2.5 ml Opht Soln OD SCH (21:33)
[2017-12-14] MEDS: (Novolog) Insulin Aspart, Recombinant 100 u/ml 10 ml vial SC SCH ×4 (00:17→17:33)
[2017-12-14] MEDS: Acetaminophen 650mg/20.3ml solution UD PO PRN (04:14)
[2017-12-14] MEDS ORDERED: Lactated Ringer's 1,000 ML IV ONE (05:00)
[2017-12-14] MEDS: metroNIDAZOLE IV 500 mg/100 ml 500 MG/100 ML BAG IVPB SCH ×3 (05:46→21:37)
[2017-12-14 05:52] LABS: ARTERIAL BLOOD GAS HCO3 23.9 mmol/L (21-28); ARTERIAL BLOOD GAS HEMOGLOBIN 10.3 g/dL (11.7-17.4); ARTERIAL BLOOD GAS O2 SAT 99.2 % (95-98); ARTERIAL BLOOD GAS PCO2 28 mm/Hg (35-45); ARTERIAL BLOOD GAS PH 7.49 (7.35-7.45); ARTERIAL BLOOD GAS PO2 114 mm/Hg (80-100); ARTERIAL BLOOD GAS TCO2 22.2 mmol/L (22-28)
[2017-12-14 06:19] LABS: BASO % 0.1 % (0.0-2.0); HEMOGLOBIN 9.5 g/dL (12.0-18.0); LYMPH # 0.7 K/uL (1.0-4.3); LYMPH % 5.6 % (20.0-40.0); MEAN CELL VOLUME 83.5 fL (80.0-94.0); MEAN CORPUSCULAR HEMOGLOBIN 27.6 pg (27.0-31.0); MEAN CORPUSCULAR HGB CONC 33.1 g/dL (33.0-37.0); MEAN PLATELET VOLUME 9.8 fL (7.2-11.7); MONO # 0.6 K/uL (0.0-0.8); MONO % 4.4 % (0.0-10.0); NEUT # 11.4 K/uL (1.8-7.0); NEUT % 89.9 % (50.0-75.0); PLATELET COUNT 154 K/uL (130-400); RBC 3.44 Mil/uL (4.40-5.90); RED CELL DISTRIBUTION WIDTH 16.8 % (11.5-14.5); WHITE BLOOD COUNT 12.7 K/uL (4.8-10.8)
[2017-12-14 06:33] LABS: ALB/GLOB RATIO 1.2 (1.0-2.1); ALBUMIN 2.1 g/dL (3.5-5.0); ALT/SGPT 37 U/L (21-72); AST/SGOT 18 U/L (17-59); BLOOD UREA NITROGEN 67 mg/dL (9-20); CALCIUM 7.5 mg/dl (8.6-10.4); GFR AFRICAN-AMERICAN > 60; GFR NON-AFRICAN AMERICAN 57; MAGNESIUM 1.6 mg/dL (1.6-2.3)
--- NOTE | 2017-12-14 06:44 | CP.PCM.PN ---
Subjective - Date & Time of Evaluation Date of Evaluation: 12/14/17 Time of Evaluation: 06:39 - Subjective Subjective: Mr. Yoon was seen and examined at the bedside in ICU. He remains non-verbal, trach connected to the mechanical ventilator on PRVC mode. He moves the left upper extremity with no movement noted in his right upper extremity. He moves his bilateral lower extremities in response to noxious stimuli. He had an episode of sustained afib HR 140's, medicated with verapamil , currently heart rate of 94. Objective - Vital Signs/Intake and Output Vital Signs (last 24 hours): Temp Pulse Resp BP Pulse Ox 99 F 71 18 101/50 L 99 12/14/17 05:14 12/14/17 06:04 12/14/17 06:04 12/14/17 06:04 12/14/17 06:04 Intake and Output: 12/13/17 12/14/17 18:59 06:59 Intake Total 2130 2400 Output Total 1065 760 Balance 1065 1640 - Medications Medications: Current Medications Acetaminophen (Tylenol 650mg/20.3ml Solution Ud) 650 mg PO Q6 PRN PRN Reason: fever Last Admin: 12/14/17 04:14 Dose: 650 mg Ascorbic Acid (Vitamin C 500 Mg Tab) 500 mg GT DAILY [facility] Last Admin: 12/13/17 09:22 Dose: 500 mg Aspirin (Aspirin Chewable) 81 mg PO DAILY [facility] Last Admin: 12/08/17 09:55 Dose: 81 mg Bisacodyl (Dulcolax) 10 mg IN Q24H PRN PRN Reason: Constipation Bisacodyl (Dulcolax) 10 mg IN HS PRN PRN Reason: Constipation Diltiazem HCl (Cardizem) 90 mg PO Q6H [facility] Last Admin: 12/14/17 04:42 Dose: 90 mg Famotidine (Pepcid) 20 mg IVP DAILY [facility] Last Admin: 12/13/17 10:39 Dose: 20 mg Heparin Sodium (Porcine) (Heparin) 5,000 units SC Q8 [facility] Last Admin: 12/08/17 06:21 Dose: 5,000 units Linezolid (Zyvox 600mg/300ml D5w) 600 mg in 300 mls @ 200 mls/hr IVPB Q12 [facility] Last Admin: 12/13/17 22:39 Dose: 200 mls/hr Metronidazole (Flagyl) 500 mg in 100 mls @ 100 mls/hr IVPB Q8 [facility] Last Admin: 12/14/17 05:46 Dose: 100 mls/hr Insulin Aspart (Novolog) 0 unit SC Q6 [facility] PRN Reason: Protocol Last Admin: 12/14/17 05:55 Dose: 2 unit Insulin Detemir (Levemir) 10 unit SC HS [facility] Last Admin: 12/13/17 21:33 Dose: 10 unit Latanoprost (Xalatan Opht) 0 ml OD HS [facility] Last Admin: 12/13/17 21:33 Dose: 1 ml Metoclopramide HCl (Reglan) 5 mg GT 0600,1130,1630,2200 PRN PRN Reason: Constipation Metoprolol Tartrate (Lopressor) 25 mg PO BID [facility] Last Admin: 12/13/17 17:21 Dose: 25 mg Multivitamins/Vitamin C (Multi-Delyn Liquid) 5 ml PO DAILY [facility] Last Admin: 12/13/17 09:23 Dose: 5 ml Sennosides (Senokot Tab) 8.6 mg PO DAILY [facility] Last Admin: 12/13/17 09:24 Dose: Not Given Sodium Bicarbonate (Sodium Bicarbonate Tab) 650 mg PO BID [facility] Last Admin: 12/13/17 17:21 Dose: 650 mg - Labs Labs: 12/14/17 06:07 12/14/17 06:05 PT 13.1 SECONDS (9.7-12.2) H 12/09/17 01:33 INR 1.2 12/09/17 01:33 APTT 32 SECONDS (21-34) 12/09/17 01:33 - Constitutional Appears: No Acute Distress - Head Exam Head Exam: NORMAL INSPECTION - Neurological Exam Neuro motor strength exam: Left Upper Extremity: 2/1, Right Upper Extremity: 0, Left Lower Extremity: 0, Right Lower Extremity: 0 Additional comments: Neurological unchanged from previous examination. Assessment and Plan (1) Sepsis Assessment & Plan: Case dicussed with Dr. Patricio, continue all current medical regimen. Recommend to treat any underlying infection and electrolyte abnormalities. Status: Acute
[2017-12-14] MEDS ORDERED: Potassium Chloride 20 mEq/15 ml LIQ UD PO ONE (07:15)
[2017-12-14 08:21] LABS: ANISOCYTOSIS SLIGHT; LYMPHOCYTE 6 % (20-40); MONOCYTE 6 % (0-10); NEUTROPHIL 88 % (50-75); PLATELET ESTIMATE NORMAL (NORMAL); TOTAL CELLS COUNTED 100
[2017-12-14 08:23] LABS: HYPOCHROMIC SLIGHT; MICROCYTOSIS SLIGHT; OVALOCYTES SLIGHT; POLYCHROMIC SLIGHT
[2017-12-14] MEDS: Multiple Vitamins Oral Solution PO SCH (09:08)
--- NOTE | 2017-12-14 09:10 | CP.PCM.PN ---
Subjective - Date & Time of Evaluation Date of Evaluation: 12/14/17 Time of Evaluation: 09:07 - Subjective Subjective: Remains obtunded Good UO K being repleted Na better with free water Objective - Vital Signs/Intake and Output Vital Signs (last 24 hours): Temp Pulse Resp BP Pulse Ox 99 F 112 H 21 107/81 99 12/14/17 08:00 12/14/17 08:00 12/14/17 08:00 12/14/17 07:35 12/14/17 08:00 Intake and Output: 12/14/17 12/14/17 06:59 18:59 Intake Total 2400 100 Output Total 760 100 Balance 1640 0 - Medications Medications: Current Medications Acetaminophen (Tylenol 650mg/20.3ml Solution Ud) 650 mg PO Q6 PRN PRN Reason: fever Last Admin: 12/14/17 04:14 Dose: 650 mg Ascorbic Acid (Vitamin C 500 Mg Tab) 500 mg GT DAILY [facility] Last Admin: 12/13/17 09:22 Dose: 500 mg Aspirin (Aspirin Chewable) 81 mg PO DAILY [facility] Last Admin: 12/08/17 09:55 Dose: 81 mg Bisacodyl (Dulcolax) 10 mg MS Q24H PRN PRN Reason: Constipation Bisacodyl (Dulcolax) 10 mg MS HS PRN PRN Reason: Constipation Diltiazem HCl (Cardizem) 90 mg PO Q6H [facility] Last Admin: 12/14/17 04:42 Dose: 90 mg Famotidine (Pepcid) 20 mg IVP DAILY [facility] Last Admin: 12/13/17 10:39 Dose: 20 mg Heparin Sodium (Porcine) (Heparin) 5,000 units SC Q8 [facility] Last Admin: 12/08/17 06:21 Dose: 5,000 units Linezolid (Zyvox 600mg/300ml D5w) 600 mg in 300 mls @ 200 mls/hr IVPB Q12 [facility] Last Admin: 12/13/17 22:39 Dose: 200 mls/hr Metronidazole (Flagyl) 500 mg in 100 mls @ 100 mls/hr IVPB Q8 [facility] Last Admin: 12/14/17 05:46 Dose: 100 mls/hr Insulin Aspart (Novolog) 0 unit SC Q6 [facility] PRN Reason: Protocol Last Admin: 12/14/17 05:55 Dose: 2 unit Insulin Detemir (Levemir) 10 unit SC HS [facility] Last Admin: 12/13/17 21:33 Dose: 10 unit Latanoprost (Xalatan Opht) 0 ml OD HS [facility] Last Admin: 12/13/17 21:33 Dose: 1 ml Metoclopramide HCl (Reglan) 5 mg GT 0600,1130,1630,2200 PRN PRN Reason: Constipation Metoprolol Tartrate (Lopressor) 25 mg PO BID [facility] Last Admin: 12/13/17 17:21 Dose: 25 mg Multivitamins/Vitamin C (Multi-Delyn Liquid) 5 ml PO DAILY [facility] Last Admin: 12/13/17 09:23 Dose: 5 ml Sennosides (Senokot Tab) 8.6 mg PO DAILY [facility] Last Admin: 12/13/17 09:24 Dose: Not Given Sodium Bicarbonate (Sodium Bicarbonate Tab) 650 mg PO BID [facility] Last Admin: 12/13/17 17:21 Dose: 650 mg - Labs Labs: 12/14/17 06:07 12/14/17 06:05 PT 13.1 SECONDS (9.7-12.2) H 12/09/17 01:33 INR 1.2 12/09/17 01:33 APTT 32 SECONDS (21-34) 12/09/17 01:33 - Constitutional Appears: Non-toxic, No Acute Distress, Chronically Ill - Head Exam Head Exam: ATRAUMATIC, NORMAL INSPECTION - Neck Exam Neck Exam: Normal Inspection. absent: Tenderness - Cardiovascular Exam Cardiovascular Exam: Tachycardia, +S1 - GI/Abdominal Exam GI & Abdominal Exam: Soft. absent: Tenderness - Extremities Exam Extremities Exam: Normal Inspection. absent: Tenderness - Neurological Exam Neurological Exam: Altered - Skin Skin Exam: Dry, Warm Assessment and Plan (1) Pneumonia Status: Acute (2) Sepsis Status: Acute (3) Hypernatremia Status: Acute - Assessment and Plan (Free Text) Plan: recommend change from nepro- K always low stop na bicarb
[2017-12-14] MEDS: Linezolid 600 mg in D5W 300 ml 600 MG/300 ML BAG IVPB SCH ×2 (09:19→22:38)
--- NOTE | 2017-12-14 09:25 | RAD ---
PROCEDURE: CHEST RADIOGRAPH, 1 VIEW HISTORY: r/o pneumonia COMPARISON: 12/12/2017 FINDINGS: LUNGS: Clear. PLEURA: Bilateral small to moderate pleural effusion, grossly unchanged. CARDIOVASCULAR: Normal heart size. Tracheostomy tube. OSSEOUS STRUCTURES: No significant abnormalities. VISUALIZED UPPER ABDOMEN: Normal. OTHER FINDINGS: None. IMPRESSION: Bilateral pleural effusion. Tracheostomy tube. Otherwise unremarkable.
--- NOTE | 2017-12-14 12:08 | CP.CCUPN ---
<LuliMeservey - Last Filed: 12/14/17 17:34> CCU Subjective - Physician Review Subjective (Free Text): 12/14/17 12:08 Patient seen and examined at bedside. Per nursing no acute events occurred overnight. Critical Care Time Spent (in minutes): 45 CCU Objective - Vital Signs / Intake & Output Vital Signs (Last 4 hours): Vital Signs Pulse Resp BP Pulse Ox 12/14/17 10:34 71 18 108/61 99 12/14/17 10:04 72 18 104/57 L 99 12/14/17 10:00 73 22 98 12/14/17 09:34 112 H 20 106/61 12/14/17 09:09 132/55 L 12/14/17 09:04 87 18 132/55 L 99 12/14/17 09:00 147 H 22 99 12/14/17 08:37 125 H 18 125/66 99 Intake and Output (Last 8hrs): Intake & Output 12/13/17 12/14/17 12/14/17 22:59 06:59 14:59 Intake Total 1180 1800 650 Output Total 680 370 190 Balance 500 1430 460 Weight 199 lb 11.2 oz Intake: Intake, IV Amount 400 1100 400 Right Distal Port 400 1100 400 Internal Jugular Right Medial Port 0 Internal Jugular Right Proximal Port 0 Internal Jugular Oral 330 Tube Feeding 450 400 150 Albumin 100 Other 300 Output: Urine 680 370 190 Urethral (Morgan) 680 370 190 Other: # Bowel Movements 1 - Physical Exam Head: Positive for: Atraumatic, Normocephalic Pupils: Positive for: PERRL Neck: Positive for: Other ((+)trach) Respiratory/Chest: Positive for: Decreased Breath Sounds Cardiovascular: Positive for: Normal S1, S2, Tachycardic Abdomen: Positive for: Normal Bowel Sounds. Negative for: Peritoneal Signs Upper Extremity: Positive for: Normal Inspection Lower Extremity: Positive for: Other (Pedal edema 2+) Neurological: Negative for: GCS=15, CN II-XII Intact - Medications Active Medications: Active Medications Generic Name Dose Route Start Last Admin Trade Name Freq PRN Reason Stop Dose Admin Acetaminophen 650 mg 12/02/17 07:49 12/14/17 04:14 Tylenol 650mg/20.3ml Solution Ud PO 650 mg Q6 PRN Administration fever Ascorbic Acid 500 mg 12/11/17 10:00 12/14/17 09:08 Vitamin C 500 Mg Tab GT 500 mg DAILY PRISCILA Administration Aspirin 81 mg 12/02/17 10:00 12/08/17 09:55 Aspirin Chewable PO 81 mg DAILY PRISCILA Administration Bisacodyl 10 mg 12/03/17 11:57 Dulcolax PA Q24H PRN Constipation Bisacodyl 10 mg 12/10/17 12:07 Dulcolax PA HS PRN Constipation Diltiazem HCl 90 mg 12/14/17 04:00 12/14/17 09:09 Cardizem PO 90 mg Q6H PRISCILA Administration Famotidine 20 mg 12/07/17 12:30 12/14/17 09:08 Pepcid IVP 20 mg DAILY PRISCILA Administration Heparin Sodium (Porcine) 5,000 units 12/07/17 22:00 12/08/17 06:21 Heparin SC 5,000 units Q8 PRISCILA Administration Linezolid 600 mg in 300 mls @ 200 mls/hr 12/05/17 10:00 12/14/17 09:19 Zyvox 600mg/300ml D5w IVPB 200 mls/hr Q12 PRISCILA Administration Metronidazole 500 mg in 100 mls @ 100 mls/hr 12/10/17 14:00 12/14/17 05:46 Flagyl IVPB 100 mls/hr Q8 PRISCILA Administration Insulin Aspart 0 unit 12/11/17 00:53 12/14/17 05:55 Novolog SC 2 unit Q6 PRISCILA Administration Protocol Insulin Detemir 10 unit 12/08/17 22:00 12/13/17 21:33 Levemir SC 10 unit HS PRISCILA Administration Latanoprost 0 ml 12/01/17 23:45 12/13/17 21:33 Xalatan Opht OD 1 ml HS PRISCILA Administration Metoclopramide HCl 5 mg 12/10/17 12:06 Reglan GT 0600,1130,1630,2200 PRN Constipation Metoprolol Tartrate 25 mg 12/08/17 18:00 12/14/17 09:09 Lopressor PO 25 mg BID PRISCILA Administration Multivitamins/Vitamin C 5 ml 12/10/17 12:30 12/14/17 09:08 Multi-Delyn Liquid PO 5 ml DAILY PRISCILA Administration Sennosides 8.6 mg 12/11/17 10:00 12/14/17 10:45 Senokot Tab PO Not Given DAILY PRISCILA - Patient Studies Lab Studies: Microbiology Studies 12/08/17 04:00 Blood Culture - Final Blood-Venous NO GROWTH AFTER 5 DAYS Gram Stain - Final TEST NOT PERFORMED 12/08/17 04:00 Blood Culture - Final Blood-Venous NO GROWTH AFTER 5 DAYS Lab Studies 12/14/17 12/14/17 12/14/17 Range/Units 11:46 06:07 06:05 WBC 12.7 H (4.8-10.8) K/uL RBC 3.44 L (4.40-5.90) Mil/uL Hgb 9.5 L (12.0-18.0) g/dL Hct 28.7 L (35.0-51.0) % MCV 83.5 (80.0-94.0) fL MCH 27.6 (27.0-31.0) pg MCHC 33.1 (33.0-37.0) g/dL RDW 16.8 H (11.5-14.5) % Plt Count 154 (130-400) K/uL MPV 9.8 (7.2-11.7) fL Neut % (Auto) 89.9 H (50.0-75.0) % Lymph % (Auto) 5.6 L (20.0-40.0) % Cobb % (Auto) 4.4 (0.0-10.0) % Eos % (Auto) 0.0 (0.0-4.0) % Baso % (Auto) 0.1 (0.0-2.0) % Neut # (Auto) 11.4 H (1.8-7.0) K/uL Lymph # (Auto) 0.7 L (1.0-4.3) K/uL Cobb # (Auto) 0.6 (0.0-0.8) K/uL Eos # (Auto) 0.0 (0.0-0.7) K/uL Baso # (Auto) 0.0 (0.0-0.2) K/uL Neutrophils % (Manual) 88 H (50-75) % Lymphocytes % (Manual) 6 L (20-40) % Monocytes % (Manual) 6 (0-10) % Platelet Estimate Normal (NORMAL) Polychromasia Slight Hypochromasia (manual) Slight Anisocytosis (manual) Slight Microcytosis (manual) Slight Ovalocytes Slight Puncture Site pCO2 (35-45) mm/Hg pO2 (80-100) mm/Hg HCO3 (21-28) mmol/L ABG pH (7.35-7.45) ABG Total CO2 (22-28) mmol/L ABG O2 Saturation (95-98) % ABG Base Excess (-2.0-3.0) mmol/L ABG Hemoglobin (11.7-17.4) g/dL ABG Carboxyhemoglobin (0.5-1.5) % POC ABG HHb (Measured) (0.0-5.0) % ABG Methemoglobin (0.0-3.0) % Parviz Test A-a O2 Difference mm/Hg Respiratory Index Hgb O2 Saturation (95.0-98.0) % Vent Mode Mechanical Rate FiO2 % Tidal Volume PEEP Sodium 149 H (132-148) mmol/L Potassium 3.2 L (3.6-5.2) mmol/L Chloride 116 H (98-107) mmol/L Carbon Dioxide 21 L (22-30) mmol/L Anion Gap 14 (10-20) BUN 67 H (9-20) mg/dL Creatinine 1.2 (0.8-1.5) mg/dL Est GFR ( Amer) > 60 Est GFR (Non-Af Amer) 57 POC Glucose (mg/dL) 238 H (65-110) mg/dL Random Glucose 207 H (75-110) mg/dL Calcium 7.5 L (8.6-10.4) mg/dl Phosphorus 2.8 (2.5-4.5) mg/dL Magnesium 1.6 (1.6-2.3) mg/dL Total Bilirubin 0.3 (0.2-1.3) mg/dL AST 18 (17-59) U/L ALT 37 (21-72) U/L Alkaline Phosphatase 71 (38-126) U/L Total Protein 3.9 L (6.3-8.3) g/dL Albumin 2.1 L (3.5-5.0) g/dL Globulin 1.7 L (2.2-3.9) gm/dL Albumin/Globulin Ratio 1.2 (1.0-2.1) 12/14/17 12/14/17 12/13/17 Range/Units 05:50 05:23 23:41 WBC (4.8-10.8) K/uL RBC (4.40-5.90) Mil/uL Hgb (12.0-18.0) g/dL Hct (35.0-51.0) % MCV (80.0-94.0) fL MCH (27.0-31.0) pg MCHC (33.0-37.0) g/dL RDW (11.5-14.5) % Plt Count (130-400) K/uL MPV (7.2-11.7) fL Neut % (Auto) (50.0-75.0) % Lymph % (Auto) (20.0-40.0) % Cobb % (Auto) (0.0-10.0) % Eos % (Auto) (0.0-4.0) % Baso % (Auto) (0.0-2.0) % Neut # (Auto) (1.8-7.0) K/uL Lymph # (Auto) (1.0-4.3) K/uL Cobb # (Auto) (0.0-0.8) K/uL Eos # (Auto) (0.0-0.7) K/uL Baso # (Auto) (0.0-0.2) K/uL Neutrophils % (Manual) (50-75) % Lymphocytes % (Manual) (20-40) % Monocytes % (Manual) (0-10) % Platelet Estimate (NORMAL) Polychromasia Hypochromasia (manual) Anisocytosis (manual) Microcytosis (manual) Ovalocytes Puncture Site Lb pCO2 28 L (35-45) mm/Hg pO2 114 H (80-100) mm/Hg HCO3 23.9 (21-28) mmol/L ABG pH 7.49 H (7.35-7.45) ABG Total CO2 22.2 (22-28) mmol/L ABG O2 Saturation 99.2 H (95-98) % ABG Base Excess -1.3 (-2.0-3.0) mmol/L ABG Hemoglobin 10.3 L (11.7-17.4) g/dL ABG Carboxyhemoglobin 1.7 H (0.5-1.5) % POC ABG HHb (Measured) 0.8 (0.0-5.0) % ABG Methemoglobin 1.3 (0.0-3.0) % Parviz Test Na A-a O2 Difference 65.0 mm/Hg Respiratory Index 0.6 Hgb O2 Saturation 96.1 (95.0-98.0) % Vent Mode Prvc Mechanical Rate 18 FiO2 30.0 % Tidal Volume 450 PEEP 5 Sodium (132-148) mmol/L Potassium (3.6-5.2) mmol/L Chloride (98-107) mmol/L Carbon Dioxide (22-30) mmol/L Anion Gap (10-20) BUN (9-20) mg/dL Creatinine (0.8-1.5) mg/dL Est GFR ( Amer) Est GFR (Non-Af Amer) POC Glucose (mg/dL) 181 H 233 H (65-110) mg/dL Random Glucose (75-110) mg/dL Calcium (8.6-10.4) mg/dl Phosphorus (2.5-4.5) mg/dL Magnesium (1.6-2.3) mg/dL Total Bilirubin (0.2-1.3) mg/dL AST (17-59) U/L ALT (21-72) U/L Alkaline Phosphatase (38-126) U/L Total Protein (6.3-8.3) g/dL Albumin (3.5-5.0) g/dL Globulin (2.2-3.9) gm/dL Albumin/Globulin Ratio (1.0-2.1) 12/13/17 12/13/17 Range/Units 17:25 11:12 WBC (4.8-10.8) K/uL RBC (4.40-5.90) Mil/uL Hgb (12.0-18.0) g/dL Hct (35.0-51.0) % MCV (80.0-94.0) fL MCH (27.0-31.0) pg MCHC (33.0-37.0) g/dL RDW (11.5-14.5) % Plt Count (130-400) K/uL MPV (7.2-11.7) fL Neut % (Auto) (50.0-75.0) % Lymph % (Auto) (20.0-40.0) % Cobb % (Auto) (0.0-10.0) % Eos % (Auto) (0.0-4.0) % Baso % (Auto) (0.0-2.0) % Neut # (Auto) (1.8-7.0) K/uL Lymph # (Auto) (1.0-4.3) K/uL Cobb # (Auto) (0.0-0.8) K/uL Eos # (Auto) (0.0-0.7) K/uL Baso # (Auto) (0.0-0.2) K/uL Neutrophils % (Manual) (50-75) % Lymphocytes % (Manual) (20-40) % Monocytes % (Manual) (0-10) % Platelet Estimate (NORMAL) Polychromasia Hypochromasia (manual) Anisocytosis (manual) Microcytosis (manual) Ovalocytes Puncture Site pCO2 (35-45) mm/Hg pO2 (80-100) mm/Hg HCO3 (21-28) mmol/L ABG pH (7.35-7.45) ABG Total CO2 (22-28) mmol/L ABG O2 Saturation (95-98) % ABG Base Excess (-2.0-3.0) mmol/L ABG Hemoglobin (11.7-17.4) g/dL ABG Carboxyhemoglobin (0.5-1.5) % POC ABG HHb (Measured) (0.0-5.0) % ABG Methemoglobin (0.0-3.0) % Parviz Test A-a O2 Difference mm/Hg Respiratory Index Hgb O2 Saturation (95.0-98.0) % Vent Mode Mechanical Rate FiO2 % Tidal Volume PEEP Sodium (132-148) mmol/L Potassium (3.6-5.2) mmol/L Chloride (98-107) mmol/L Carbon Dioxide (22-30) mmol/L Anion Gap (10-20) BUN (9-20) mg/dL Creatinine (0.8-1.5) mg/dL Est GFR ( Amer) Est GFR (Non-Af Amer) POC Glucose (mg/dL) 209 H 234 H (65-110) mg/dL Random Glucose (75-110) mg/dL Calcium (8.6-10.4) mg/dl Phosphorus (2.5-4.5) mg/dL Magnesium (1.6-2.3) mg/dL Total Bilirubin (0.2-1.3) mg/dL AST (17-59) U/L ALT (21-72) U/L Alkaline Phosphatase (38-126) U/L Total Protein (6.3-8.3) g/dL Albumin (3.5-5.0) g/dL Globulin (2.2-3.9) gm/dL Albumin/Globulin Ratio (1.0-2.1) Laboratory Results - last 24 hr 12/13/17 12/13/17 12/13/17 11:12 17:25 23:41 WBC RBC Hgb Hct MCV MCH MCHC RDW Plt Count MPV Neut % (Auto) Lymph % (Auto) Cobb % (Auto) Eos % (Auto) Baso % (Auto) Neut # (Auto) Lymph # (Auto) Cobb # (Auto) Eos # (Auto) Baso # (Auto) Neutrophils % (Manual) Lymphocytes % (Manual) Monocytes % (Manual) Platelet Estimate Polychromasia Hypochromasia (manual) Anisocytosis (manual) Microcytosis (manual) Ovalocytes Puncture Site pCO2 pO2 HCO3 ABG pH ABG Total CO2 ABG O2 Saturation ABG Base Excess ABG Hemoglobin ABG Carboxyhemoglobin POC ABG HHb (Measured) ABG Methemoglobin Parviz Test A-a O2 Difference Respiratory Index Hgb O2 Saturation Vent Mode Mechanical Rate FiO2 Tidal Volume PEEP Sodium Potassium Chloride Carbon Dioxide Anion Gap BUN Creatinine Est GFR ( Amer) Est GFR (Non-Af Amer) POC Glucose (mg/dL) 234 H 209 H 233 H Random Glucose Calcium Phosphorus Magnesium Total Bilirubin AST ALT Alkaline Phosphatase Total Protein Albumin Globulin Albumin/Globulin Ratio 12/14/17 12/14/17 12/14/17 05:23 05:50 06:05 WBC RBC Hgb Hct MCV MCH MCHC RDW Plt Count MPV Neut % (Auto) Lymph % (Auto) Cobb % (Auto) Eos % (Auto) Baso % (Auto) Neut # (Auto) Lymph # (Auto) Cobb # (Auto) Eos # (Auto) Baso # (Auto) Neutrophils % (Manual) Lymphocytes % (Manual) Monocytes % (Manual) Platelet Estimate Polychromasia Hypochromasia (manual) Anisocytosis (manual) Microcytosis (manual) Ovalocytes Puncture Site Lb pCO2 28 L pO2 114 H HCO3 23.9 ABG pH 7.49 H ABG Total CO2 22.2 ABG O2 Saturation 99.2 H ABG Base Excess -1.3 ABG Hemoglobin 10.3 L ABG Carboxyhemoglobin 1.7 H POC ABG HHb (Measured) 0.8 ABG Methemoglobin 1.3 Parviz Test Na A-a O2 Difference 65.0 Respiratory Index 0.6 Hgb O2 Saturation 96.1 Vent Mode Prvc Mechanical Rate 18 FiO2 30.0 Tidal Volume 450 PEEP 5 Sodium 149 H Potassium 3.2 L Chloride 116 H Carbon Dioxide 21 L Anion Gap 14 BUN 67 H Creatinine 1.2 Est GFR ( Amer) > 60 Est GFR (Non-Af Amer) 57 POC Glucose (mg/dL) 181 H Random Glucose 207 H Calcium 7.5 L Phosphorus 2.8 Magnesium 1.6 Total Bilirubin 0.3 AST 18 ALT 37 Alkaline Phosphatase 71 Total Protein 3.9 L Albumin 2.1 L Globulin 1.7 L Albumin/Globulin Ratio 1.2 12/14/17 12/14/17 06:07 11:46 WBC 12.7 H RBC 3.44 L Hgb 9.5 L Hct 28.7 L MCV 83.5 MCH 27.6 MCHC 33.1 RDW 16.8 H Plt Count 154 MPV 9.8 Neut % (Auto) 89.9 H Lymph % (Auto) 5.6 L Cobb % (Auto) 4.4 Eos % (Auto) 0.0 Baso % (Auto) 0.1 Neut # (Auto) 11.4 H Lymph # (Auto) 0.7 L Cobb # (Auto) 0.6 Eos # (Auto) 0.0 Baso # (Auto) 0.0 Neutrophils % (Manual) 88 H Lymphocytes % (Manual) 6 L Monocytes % (Manual) 6 Platelet Estimate Normal Polychromasia Slight Hypochromasia (manual) Slight Anisocytosis (manual) Slight Microcytosis (manual) Slight Ovalocytes Slight Puncture Site pCO2 pO2 HCO3 ABG pH ABG Total CO2 ABG O2 Saturation ABG Base Excess ABG Hemoglobin ABG Carboxyhemoglobin POC ABG HHb (Measured) ABG Methemoglobin Parviz Test A-a O2 Difference Respiratory Index Hgb O2 Saturation Vent Mode Mechanical Rate FiO2 Tidal Volume PEEP Sodium Potassium Chloride Carbon Dioxide Anion Gap BUN Creatinine Est GFR ( Amer) Est GFR (Non-Af Amer) POC Glucose (mg/dL) 238 H Random Glucose Calcium Phosphorus Magnesium Total Bilirubin AST ALT Alkaline Phosphatase Total Protein Albumin Globulin Albumin/Globulin Ratio Fingerstick Blood Sugar Results: 181 Review of Systems - Review of Systems Systems not reviewed;Unavailable: Acuity of Condition Assessment/Plan - Assessment and Plan (Free Text) Assessment: 87 y/o male with pmx of hydrocephalus requiring a shunt who was recently admitted to [facility] for respiratory distress. Patient was transferred to [facility] and brought back to [facility] for same complaint. Plan: Respiratory distress: s/p Trach: FiO2:30% continue ventilation suspect VQ mismatch 2nd aspiration staph/GPC, continue bronchodilators chest ct w/o contrast showed moderate pleurel effusion, CHF vs. Portal hypertension, findings suspicious PNA in right lung apex, gallstones and fluid adjacent to gallbladder, 2.6cm density in the Right upper lobe U/S for Pleural Effusion. Results showed not enough fluid to have pigtail cath placement. Will continue to watch. Continue CPAP trials today. Sepsis serial lactic LP reveals no WBC, non reactive to VDRL, elevated protein and glucose. no hydrocephalus as presusre only 5 de-escalate abx, pending HSV PCR continue Zyvox/aztronam/doxy repeat procal 1.15 AMS suspect chronic -continue peg tube feeds CAD/NSTEMI/P. A-fib./flutter: asa, statin. Cardizem 90mg Q6 obtain cardiology eval,monitor to keep MAP >65, Echo: EF 50%, mild to moderate concentric LVH, and mild M.R. HR controlled today Lopressor 25mg PO BID priscila. Continue Heparin 5000 units sc q8. SIMON Creatinine 1.2 today. 2nd sepsis/hypotension avoid nephrotoxic drgus Urine sodium:45, Urine osm:398, Urine Creatinine:268 DVT ppx heparin -pud ppx pepcid -bgm q6hrs,ISS <Negro Dia - Last Filed: 12/14/17 18:10> CCU Objective - Vital Signs / Intake & Output Vital Signs (Last 4 hours): Vital Signs Temp Pulse Resp BP Pulse Ox 12/14/17 17:34 74 18 110/58 L 97 12/14/17 17:05 110 H 22 139/85 98 12/14/17 17:00 101 H 18 97 12/14/17 16:34 121 H 19 114/62 99 12/14/17 16:04 129 H 24 117/52 L 99 12/14/17 16:00 98.1 F 110 H 21 99 12/14/17 15:35 109 H 20 123/54 L 99 12/14/17 15:04 100 H 20 117/63 99 12/14/17 15:00 104 H 24 99 12/14/17 14:34 79 18 120/60 99 Intake and Output (Last 8hrs): Intake & Output 12/14/17 12/14/17 12/14/17 06:59 14:59 22:59 Intake Total 1800 1250 250 Output Total 370 540 280 Balance 1430 710 -30 Weight 199 lb 11.2 oz Intake: Intake, IV Amount 1100 500 Right Distal Port 1100 500 Internal Jugular Tube Feeding 400 350 150 Albumin 100 Other 300 300 100 Output: Urine 370 540 280 Urethral (Morgan) 370 540 280 Other: # Bowel Movements 1 1 - Medications Active Medications: Active Medications Generic Name Dose Route Start Last Admin Trade Name Freq PRN Reason Stop Dose Admin Acetaminophen 650 mg 12/02/17 07:49 12/14/17 04:14 Tylenol 650mg/20.3ml Solution Ud PO 650 mg Q6 PRN Administration fever Ascorbic Acid 500 mg 12/11/17 10:00 12/14/17 09:08 Vitamin C 500 Mg Tab GT 500 mg DAILY PRISCILA Administration Aspirin 81 mg 12/02/17 10:00 12/08/17 09:55 Aspirin Chewable PO 81 mg DAILY PRISCILA Administration Bisacodyl 10 mg 12/03/17 11:57 Dulcolax PA Q24H PRN Constipation Bisacodyl 10 mg 12/10/17 12:07 Dulcolax PA HS PRN Constipation Diltiazem HCl 90 mg 12/14/17 04:00 12/14/17 16:19 Cardizem PO 90 mg Q6H PRISCILA Administration Famotidine 20 mg 12/07/17 12:30 12/14/17 09:08 Pepcid IVP 20 mg DAILY [facility] Administration Heparin Sodium (Porcine) 5,000 units 12/07/17 22:00 12/08/17 06:21 Heparin SC 5,000 units Q8 PRISCILA Administration Linezolid 600 mg in 300 mls @ 200 mls/hr 12/05/17 10:00 12/14/17 09:19 Zyvox 600mg/300ml D5w IVPB 200 mls/hr Q12 PRISCILA Administration Metronidazole 500 mg in 100 mls @ 100 mls/hr 12/10/17 14:00 12/14/17 13:25 Flagyl IVPB 100 mls/hr Q8 PRISCILA Administration Insulin Aspart 0 unit 12/11/17 00:53 12/14/17 17:33 Novolog SC 2 unit Q6 PRISCILA Administration Protocol Insulin Detemir 10 unit 12/08/17 22:00 12/13/17 21:33 Levemir SC 10 unit HS PRISCILA Administration Latanoprost 0 ml 12/01/17 23:45 12/13/17 21:33 Xalatan Opht OD 1 ml HS PRISCILA Administration Metoclopramide HCl 5 mg 12/10/17 12:06 Reglan GT 0600,1130,1630,2200 PRN Constipation Metoprolol Tartrate 25 mg 12/08/17 18:00 12/14/17 17:34 Lopressor PO 25 mg BID PRISCILA Administration Multivitamins/Vitamin C 5 ml 12/10/17 12:30 12/14/17 09:08 Multi-Delyn Liquid PO 5 ml DAILY PRISCILA Administration Sennosides 8.6 mg 12/11/17 10:00 12/14/17 10:45 Senokot Tab PO Not Given DAILY PRISCILA - Patient Studies Lab Studies: Lab Studies 12/14/17 12/14/17 12/14/17 Range/Units 17:27 11:46 06:07 WBC 12.7 H (4.8-10.8) K/uL RBC 3.44 L (4.40-5.90) Mil/uL Hgb 9.5 L (12.0-18.0) g/dL Hct 28.7 L (35.0-51.0) % MCV 83.5 (80.0-94.0) fL MCH 27.6 (27.0-31.0) pg MCHC 33.1 (33.0-37.0) g/dL RDW 16.8 H (11.5-14.5) % Plt Count 154 (130-400) K/uL MPV 9.8 (7.2-11.7) fL Neut % (Auto) 89.9 H (50.0-75.0) % Lymph % (Auto) 5.6 L (20.0-40.0) % Cobb % (Auto) 4.4 (0.0-10.0) % Eos % (Auto) 0.0 (0.0-4.0) % Baso % (Auto) 0.1 (0.0-2.0) % Neut # (Auto) 11.4 H (1.8-7.0) K/uL Lymph # (Auto) 0.7 L (1.0-4.3) K/uL Cobb # (Auto) 0.6 (0.0-0.8) K/uL Eos # (Auto) 0.0 (0.0-0.7) K/uL Baso # (Auto) 0.0 (0.0-0.2) K/uL Neutrophils % (Manual) 88 H (50-75) % Lymphocytes % (Manual) 6 L (20-40) % Monocytes % (Manual) 6 (0-10) % Platelet Estimate Normal (NORMAL) Polychromasia Slight Hypochromasia (manual) Slight Anisocytosis (manual) Slight Microcytosis (manual) Slight Ovalocytes Slight Puncture Site pCO2 (35-45) mm/Hg pO2 (80-100) mm/Hg HCO3 (21-28) mmol/L ABG pH (7.35-7.45) ABG Total CO2 (22-28) mmol/L ABG O2 Saturation (95-98) % ABG Base Excess (-2.0-3.0) mmol/L ABG Hemoglobin (11.7-17.4) g/dL ABG Carboxyhemoglobin (0.5-1.5) % POC ABG HHb (Measured) (0.0-5.0) % ABG Methemoglobin (0.0-3.0) % Parviz Test A-a O2 Difference mm/Hg Respiratory Index Hgb O2 Saturation (95.0-98.0) % Vent Mode Mechanical Rate FiO2 % Tidal Volume PEEP Sodium (132-148) mmol/L Potassium (3.6-5.2) mmol/L Chloride (98-107) mmol/L Carbon Dioxide (22-30) mmol/L Anion Gap (10-20) BUN (9-20) mg/dL Creatinine (0.8-1.5) mg/dL Est GFR ( Amer) Est GFR (Non-Af Amer) POC Glucose (mg/dL) 183 H 238 H (65-110) mg/dL Random Glucose (75-110) mg/dL Calcium (8.6-10.4) mg/dl Phosphorus (2.5-4.5) mg/dL Magnesium (1.6-2.3) mg/dL Total Bilirubin (0.2-1.3) mg/dL AST (17-59) U/L ALT (21-72) U/L Alkaline Phosphatase (38-126) U/L Total Protein (6.3-8.3) g/dL Albumin (3.5-5.0) g/dL Globulin (2.2-3.9) gm/dL Albumin/Globulin Ratio (1.0-2.1) 12/14/17 12/14/17 12/14/17 Range/Units 06:05 05:50 05:23 WBC (4.8-10.8) K/uL RBC (4.40-5.90) Mil/uL Hgb (12.0-18.0) g/dL Hct (35.0-51.0) % MCV (80.0-94.0) fL MCH (27.0-31.0) pg MCHC (33.0-37.0) g/dL RDW (11.5-14.5) % Plt Count (130-400) K/uL MPV (7.2-11.7) fL Neut % (Auto) (50.0-75.0) % Lymph % (Auto) (20.0-40.0) % Cobb % (Auto) (0.0-10.0) % Eos % (Auto) (0.0-4.0) % Baso % (Auto) (0.0-2.0) % Neut # (Auto) (1.8-7.0) K/uL Lymph # (Auto) (1.0-4.3) K/uL Cobb # (Auto) (0.0-0.8) K/uL Eos # (Auto) (0.0-0.7) K/uL Baso # (Auto) (0.0-0.2) K/uL Neutrophils % (Manual) (50-75) % Lymphocytes % (Manual) (20-40) % Monocytes % (Manual) (0-10) % Platelet Estimate (NORMAL) Polychromasia Hypochromasia (manual) Anisocytosis (manual) Microcytosis (manual) Ovalocytes Puncture Site Lb pCO2 28 L (35-45) mm/Hg pO2 114 H (80-100) mm/Hg HCO3 23.9 (21-28) mmol/L ABG pH 7.49 H (7.35-7.45) ABG Total CO2 22.2 (22-28) mmol/L ABG O2 Saturation 99.2 H (95-98) % ABG Base Excess -1.3 (-2.0-3.0) mmol/L ABG Hemoglobin 10.3 L (11.7-17.4) g/dL ABG Carboxyhemoglobin 1.7 H (0.5-1.5) % POC ABG HHb (Measured) 0.8 (0.0-5.0) % ABG Methemoglobin 1.3 (0.0-3.0) % Parviz Test Na A-a O2 Difference 65.0 mm/Hg Respiratory Index 0.6 Hgb O2 Saturation 96.1 (95.0-98.0) % Vent Mode Prvc Mechanical Rate 18 FiO2 30.0 % Tidal Volume 450 PEEP 5 Sodium 149 H (132-148) mmol/L Potassium 3.2 L (3.6-5.2) mmol/L Chloride 116 H (98-107) mmol/L Carbon Dioxide 21 L (22-30) mmol/L Anion Gap 14 (10-20) BUN 67 H (9-20) mg/dL Creatinine 1.2 (0.8-1.5) mg/dL Est GFR ( Amer) > 60 Est GFR (Non-Af Amer) 57 POC Glucose (mg/dL) 181 H (65-110) mg/dL Random Glucose 207 H (75-110) mg/dL Calcium 7.5 L (8.6-10.4) mg/dl Phosphorus 2.8 (2.5-4.5) mg/dL Magnesium 1.6 (1.6-2.3) mg/dL Total Bilirubin 0.3 (0.2-1.3) mg/dL AST 18 (17-59) U/L ALT 37 (21-72) U/L Alkaline Phosphatase 71 (38-126) U/L Total Protein 3.9 L (6.3-8.3) g/dL Albumin 2.1 L (3.5-5.0) g/dL Globulin 1.7 L (2.2-3.9) gm/dL Albumin/Globulin Ratio 1.2 (1.0-2.1) 12/13/17 Range/Units 23:41 WBC (4.8-10.8) K/uL RBC (4.40-5.90) Mil/uL Hgb (12.0-18.0) g/dL Hct (35.0-51.0) % MCV (80.0-94.0) fL MCH (27.0-31.0) pg MCHC (33.0-37.0) g/dL RDW (11.5-14.5) % Plt Count (130-400) K/uL MPV (7.2-11.7) fL Neut % (Auto) (50.0-75.0) % Lymph % (Auto) (20.0-40.0) % Cobb % (Auto) (0.0-10.0) % Eos % (Auto) (0.0-4.0) % Baso % (Auto) (0.0-2.0) % Neut # (Auto) (1.8-7.0) K/uL Lymph # (Auto) (1.0-4.3) K/uL Cobb # (Auto) (0.0-0.8) K/uL Eos # (Auto) (0.0-0.7) K/uL Baso # (Auto) (0.0-0.2) K/uL Neutrophils % (Manual) (50-75) % Lymphocytes % (Manual) (20-40) % Monocytes % (Manual) (0-10) % Platelet Estimate (NORMAL) Polychromasia Hypochromasia (manual) Anisocytosis (manual) Microcytosis (manual) Ovalocytes Puncture Site pCO2 (35-45) mm/Hg pO2 (80-100) mm/Hg HCO3 (21-28) mmol/L ABG pH (7.35-7.45) ABG Total CO2 (22-28) mmol/L ABG O2 Saturation (95-98) % ABG Base Excess (-2.0-3.0) mmol/L ABG Hemoglobin (11.7-17.4) g/dL ABG Carboxyhemoglobin (0.5-1.5) % POC ABG HHb (Measured) (0.0-5.0) % ABG Methemoglobin (0.0-3.0) % Parviz Test A-a O2 Difference mm/Hg Respiratory Index Hgb O2 Saturation (95.0-98.0) % Vent Mode Mechanical Rate FiO2 % Tidal Volume PEEP Sodium (132-148) mmol/L Potassium (3.6-5.2) mmol/L Chloride (98-107) mmol/L Carbon Dioxide (22-30) mmol/L Anion Gap (10-20) BUN (9-20) mg/dL Creatinine (0.8-1.5) mg/dL Est GFR ( Amer) Est GFR (Non-Af Amer) POC Glucose (mg/dL) 233 H (65-110) mg/dL Random Glucose (75-110) mg/dL Calcium (8.6-10.4) mg/dl Phosphorus (2.5-4.5) mg/dL Magnesium (1.6-2.3) mg/dL Total Bilirubin (0.2-1.3) mg/dL AST (17-59) U/L ALT (21-72) U/L Alkaline Phosphatase (38-126) U/L Total Protein (6.3-8.3) g/dL Albumin (3.5-5.0) g/dL Globulin (2.2-3.9) gm/dL Albumin/Globulin Ratio (1.0-2.1) Laboratory Results - last 24 hr 12/13/17 12/14/17 12/14/17 23:41 05:23 05:50 WBC RBC Hgb Hct MCV MCH MCHC RDW Plt Count MPV Neut % (Auto) Lymph % (Auto) Cobb % (Auto) Eos % (Auto) Baso % (Auto) Neut # (Auto) Lymph # (Auto) Cobb # (Auto) Eos # (Auto) Baso # (Auto) Neutrophils % (Manual) Lymphocytes % (Manual) Monocytes % (Manual) Platelet Estimate Polychromasia Hypochromasia (manual) Anisocytosis (manual) Microcytosis (manual) Ovalocytes Puncture Site Lb pCO2 28 L pO2 114 H HCO3 23.9 ABG pH 7.49 H ABG Total CO2 22.2 ABG O2 Saturation 99.2 H ABG Base Excess -1.3 ABG Hemoglobin 10.3 L ABG Carboxyhemoglobin 1.7 H POC ABG HHb (Measured) 0.8 ABG Methemoglobin 1.3 Parviz Test Na A-a O2 Difference 65.0 Respiratory Index 0.6 Hgb O2 Saturation 96.1 Vent Mode Prvc Mechanical Rate 18 FiO2 30.0 Tidal Volume 450 PEEP 5 Sodium Potassium Chloride Carbon Dioxide Anion Gap BUN Creatinine Est GFR ( Amer) Est GFR (Non-Af Amer) POC Glucose (mg/dL) 233 H 181 H Random Glucose Calcium Phosphorus Magnesium Total Bilirubin AST ALT Alkaline Phosphatase Total Protein Albumin Globulin Albumin/Globulin Ratio 12/14/17 12/14/17 12/14/17 06:05 06:07 11:46 WBC 12.7 H RBC 3.44 L Hgb 9.5 L Hct 28.7 L MCV 83.5 MCH 27.6 MCHC 33.1 RDW 16.8 H Plt Count 154 MPV 9.8 Neut % (Auto) 89.9 H Lymph % (Auto) 5.6 L Cobb % (Auto) 4.4 Eos % (Auto) 0.0 Baso % (Auto) 0.1 Neut # (Auto) 11.4 H Lymph # (Auto) 0.7 L Cobb # (Auto) 0.6 Eos # (Auto) 0.0 Baso # (Auto) 0.0 Neutrophils % (Manual) 88 H Lymphocytes % (Manual) 6 L Monocytes % (Manual) 6 Platelet Estimate Normal Polychromasia Slight Hypochromasia (manual) Slight Anisocytosis (manual) Slight Microcytosis (manual) Slight Ovalocytes Slight Puncture Site pCO2 pO2 HCO3 ABG pH ABG Total CO2 ABG O2 Saturation ABG Base Excess ABG Hemoglobin ABG Carboxyhemoglobin POC ABG HHb (Measured) ABG Methemoglobin Parviz Test A-a O2 Difference Respiratory Index Hgb O2 Saturation Vent Mode Mechanical Rate FiO2 Tidal Volume PEEP Sodium 149 H Potassium 3.2 L Chloride 116 H Carbon Dioxide 21 L Anion Gap 14 BUN 67 H Creatinine 1.2 Est GFR ( Amer) > 60 Est GFR (Non-Af Amer) 57 POC Glucose (mg/dL) 238 H Random Glucose 207 H Calcium 7.5 L Phosphorus 2.8 Magnesium 1.6 Total Bilirubin 0.3 AST 18 ALT 37 Alkaline Phosphatase 71 Total Protein 3.9 L Albumin 2.1 L Globulin 1.7 L Albumin/Globulin Ratio 1.2 12/14/17 17:27 WBC RBC Hgb Hct MCV MCH MCHC RDW Plt Count MPV Neut % (Auto) Lymph % (Auto) Cobb % (Auto) Eos % (Auto) Baso % (Auto) Neut # (Auto) Lymph # (Auto) Cobb # (Auto) Eos # (Auto) Baso # (Auto) Neutrophils % (Manual) Lymphocytes % (Manual) Monocytes % (Manual) Platelet Estimate Polychromasia Hypochromasia (manual) Anisocytosis (manual) Microcytosis (manual) Ovalocytes Puncture Site pCO2 pO2 HCO3 ABG pH ABG Total CO2 ABG O2 Saturation ABG Base Excess ABG Hemoglobin ABG Carboxyhemoglobin POC ABG HHb (Measured) ABG Methemoglobin Parviz Test A-a O2 Difference Respiratory Index Hgb O2 Saturation Vent Mode Mechanical Rate FiO2 Tidal Volume PEEP Sodium Potassium Chloride Carbon Dioxide Anion Gap BUN Creatinine Est GFR ( Amer) Est GFR (Non-Af Amer) POC Glucose (mg/dL) 183 H Random Glucose Calcium Phosphorus Magnesium Total Bilirubin AST ALT Alkaline Phosphatase Total Protein Albumin Globulin Albumin/Globulin Ratio Attending/Attestation - Attestation I have personally seen and examined this patient.: Yes I have fully participated in the care of the patient.: Yes I have reviewed all pertinent clinical information: Yes Notes (Text): 12/14/17 18:08 I have seen and examined the patient. Medical records, lab studies, and imaging were reviewed by me and a management plan was formulated on multidisciplinary rounds with resident Dr. Rockwell. I agree with their documented assessment and plan. Patient is trach/peg, clinically stable can downgrade to the floor while awaiting LTAC transfer. Critical Care Time 35 minutes. Multi-disciplinary rounds were performed with house staff, nursing, speech therapy, respiratory therapy, pharmacy and nutrition with integrated input from the primary team/attending and other consulting services. The documented time is cumulative and includes review of patient data/exams/labs/chart review and examination of the patient on rounds and throughout the day; time is exclusive of any procedures or teaching time.
--- NOTE | 2017-12-14 17:28 | CP.PCM.PN ---
Subjective - Date & Time of Evaluation Date of Evaluation: 12/14/17 Time of Evaluation: 09:40 - Subjective Subjective: pt clinically same Objective - Vital Signs/Intake and Output Vital Signs (last 24 hours): Temp Pulse Resp BP Pulse Ox 99.1 F 129 H 24 117/52 L 99 12/14/17 12:00 12/14/17 16:04 12/14/17 16:04 12/14/17 16:04 12/14/17 16:04 Intake and Output: 12/14/17 12/14/17 06:59 18:59 Intake Total 2400 1400 Output Total 760 740 Balance 1640 660 - Medications Medications: Current Medications Acetaminophen (Tylenol 650mg/20.3ml Solution Ud) 650 mg PO Q6 PRN PRN Reason: fever Last Admin: 12/14/17 04:14 Dose: 650 mg Ascorbic Acid (Vitamin C 500 Mg Tab) 500 mg GT DAILY [facility] Last Admin: 12/14/17 09:08 Dose: 500 mg Aspirin (Aspirin Chewable) 81 mg PO DAILY [facility] Last Admin: 12/08/17 09:55 Dose: 81 mg Bisacodyl (Dulcolax) 10 mg [place] Q24H PRN PRN Reason: Constipation Bisacodyl (Dulcolax) 10 mg [place] HS PRN PRN Reason: Constipation Diltiazem HCl (Cardizem) 90 mg PO Q6H [facility] Last Admin: 12/14/17 16:19 Dose: 90 mg Famotidine (Pepcid) 20 mg IVP DAILY [facility] Last Admin: 12/14/17 09:08 Dose: 20 mg Heparin Sodium (Porcine) (Heparin) 5,000 units SC Q8 [facility] Last Admin: 12/08/17 06:21 Dose: 5,000 units Linezolid (Zyvox 600mg/300ml D5w) 600 mg in 300 mls @ 200 mls/hr IVPB Q12 [facility] Last Admin: 12/14/17 09:19 Dose: 200 mls/hr Metronidazole (Flagyl) 500 mg in 100 mls @ 100 mls/hr IVPB Q8 [facility] Last Admin: 12/14/17 13:25 Dose: 100 mls/hr Insulin Aspart (Novolog) 0 unit SC Q6 ANA PRN Reason: Protocol Last Admin: 12/14/17 13:26 Dose: 4 unit Insulin Detemir (Levemir) 10 unit SC HS [facility] Last Admin: 12/13/17 21:33 Dose: 10 unit Latanoprost (Xalatan Opht) 0 ml OD HS [facility] Last Admin: 12/13/17 21:33 Dose: 1 ml Metoclopramide HCl (Reglan) 5 mg GT 0600,1130,1630,2200 PRN PRN Reason: Constipation Metoprolol Tartrate (Lopressor) 25 mg PO BID [facility] Last Admin: 12/14/17 09:09 Dose: 25 mg Multivitamins/Vitamin C (Multi-Delyn Liquid) 5 ml PO DAILY [facility] Last Admin: 12/14/17 09:08 Dose: 5 ml Sennosides (Senokot Tab) 8.6 mg PO DAILY [facility] Last Admin: 12/14/17 10:45 Dose: Not Given - Labs Labs: 12/14/17 06:07 12/14/17 06:05 PT 13.1 SECONDS (9.7-12.2) H 12/09/17 01:33 INR 1.2 12/09/17 01:33 APTT 32 SECONDS (21-34) 12/09/17 01:33 Assessment and Plan (1) Bandemia Status: Acute (2) Dyspnea Status: Acute (3) Fever Status: Acute (4) Lethargy Status: Acute (5) Sepsis Status: Acute (6) Contusion Status: Acute (7) Fall Status: Acute
--- NOTE | 2017-12-14 18:15 | CP.PCM.PN ---
Subjective - Date & Time of Evaluation Date of Evaluation: 12/14/17 Time of Evaluation: 18:15 Objective - Vital Signs/Intake and Output Vital Signs (last 24 hours): Temp Pulse Resp BP Pulse Ox 98.1 F 74 18 110/58 L 97 12/14/17 16:00 12/14/17 17:34 12/14/17 17:34 12/14/17 17:34 12/14/17 17:34 Intake and Output: 12/14/17 12/14/17 06:59 18:59 Intake Total 2400 1500 Output Total 760 820 Balance 1640 680 - Medications Medications: Current Medications Acetaminophen (Tylenol 650mg/20.3ml Solution Ud) 650 mg PO Q6 PRN PRN Reason: fever Last Admin: 12/14/17 04:14 Dose: 650 mg Ascorbic Acid (Vitamin C 500 Mg Tab) 500 mg GT DAILY [facility] Last Admin: 12/14/17 09:08 Dose: 500 mg Aspirin (Aspirin Chewable) 81 mg PO DAILY [facility] Last Admin: 12/08/17 09:55 Dose: 81 mg Bisacodyl (Dulcolax) 10 mg [place] Q24H PRN PRN Reason: Constipation Bisacodyl (Dulcolax) 10 mg [place] HS PRN PRN Reason: Constipation Diltiazem HCl (Cardizem) 90 mg PO Q6H [facility] Last Admin: 12/14/17 16:19 Dose: 90 mg Famotidine (Pepcid) 20 mg IVP DAILY [facility] Last Admin: 12/14/17 09:08 Dose: 20 mg Heparin Sodium (Porcine) (Heparin) 5,000 units SC Q8 [facility] Last Admin: 12/08/17 06:21 Dose: 5,000 units Linezolid (Zyvox 600mg/300ml D5w) 600 mg in 300 mls @ 200 mls/hr IVPB Q12 [facility] Last Admin: 12/14/17 09:19 Dose: 200 mls/hr Metronidazole (Flagyl) 500 mg in 100 mls @ 100 mls/hr IVPB Q8 [facility] Last Admin: 12/14/17 13:25 Dose: 100 mls/hr Insulin Aspart (Novolog) 0 unit SC Q6 ANA PRN Reason: Protocol Last Admin: 12/14/17 17:33 Dose: 2 unit Insulin Detemir (Levemir) 10 unit SC HS [facility] Last Admin: 12/13/17 21:33 Dose: 10 unit Latanoprost (Xalatan Opht) 0 ml OD HS [facility] Last Admin: 12/13/17 21:33 Dose: 1 ml Metoclopramide HCl (Reglan) 5 mg GT 0600,1130,1630,2200 PRN PRN Reason: Constipation Metoprolol Tartrate (Lopressor) 25 mg PO BID [facility] Last Admin: 12/14/17 17:34 Dose: 25 mg Multivitamins/Vitamin C (Multi-Delyn Liquid) 5 ml PO DAILY [facility] Last Admin: 12/14/17 09:08 Dose: 5 ml Sennosides (Senokot Tab) 8.6 mg PO DAILY [facility] Last Admin: 12/14/17 10:45 Dose: Not Given - Labs Labs: 12/14/17 06:07 12/14/17 06:05 PT 13.1 SECONDS (9.7-12.2) H 12/09/17 01:33 INR 1.2 12/09/17 01:33 APTT 32 SECONDS (21-34) 12/09/17 01:33
[2017-12-14] MEDS: Insulin Detemir 100 units/ml Vial (Levemir) SC SCH (21:38)
[2017-12-14] MEDS: Latanoprost 2.5 ml Opht Soln OD SCH (22:37)
[2017-12-15] MEDS: (Novolog) Insulin Aspart, Recombinant 100 u/ml 10 ml vial SC SCH ×4 (00:38→18:08)
[2017-12-15] MEDS: metroNIDAZOLE IV 500 mg/100 ml 500 MG/100 ML BAG IVPB SCH ×2 (06:30→13:37)
--- NOTE | 2017-12-15 06:45 | CP.PCM.PN ---
Subjective - Date & Time of Evaluation Date of Evaluation: 12/15/17 Time of Evaluation: 06:40 - Subjective Subjective: Mr. Yono was seen and examined at the bedside in ICU. He has the trach connected to a mechanical ventilator. He opens his eyes in response to noxious stimuli. He still moves his left upper extremity spontaneously with no movement noted in the right upper extremity. He moves his lower extremities with noxious stimuli. He has an episode of a-fib yesterday, treated with medication. Objective - Vital Signs/Intake and Output Vital Signs (last 24 hours): Temp Pulse Resp BP Pulse Ox 98 F 144 H 24 115/79 99 12/15/17 04:00 12/15/17 04:00 12/15/17 04:00 12/15/17 04:00 12/15/17 04:00 Intake and Output: 12/14/17 12/15/17 18:59 06:59 Intake Total 1550 50 Output Total 810 40 Balance 740 10 - Medications Medications: Current Medications Acetaminophen (Tylenol 650mg/20.3ml Solution Ud) 650 mg PO Q6 PRN PRN Reason: fever Last Admin: 12/14/17 04:14 Dose: 650 mg Ascorbic Acid (Vitamin C 500 Mg Tab) 500 mg GT DAILY [facility] Last Admin: 12/14/17 09:08 Dose: 500 mg Aspirin (Aspirin Chewable) 81 mg PO DAILY [facility] Last Admin: 12/08/17 09:55 Dose: 81 mg Bisacodyl (Dulcolax) 10 mg [place] Q24H PRN PRN Reason: Constipation Bisacodyl (Dulcolax) 10 mg [place] HS PRN PRN Reason: Constipation Diltiazem HCl (Cardizem) 90 mg PO Q6H [facility] Last Admin: 12/15/17 04:15 Dose: 90 mg Famotidine (Pepcid) 20 mg IVP DAILY [facility] Last Admin: 12/14/17 09:08 Dose: 20 mg Heparin Sodium (Porcine) (Heparin) 5,000 units SC Q8 [facility] Last Admin: 12/08/17 06:21 Dose: 5,000 units Linezolid (Zyvox 600mg/300ml D5w) 600 mg in 300 mls @ 200 mls/hr IVPB Q12 [facility] Last Admin: 12/14/17 22:38 Dose: 200 mls/hr Metronidazole (Flagyl) 500 mg in 100 mls @ 100 mls/hr IVPB Q8 [facility] Last Admin: 12/14/17 21:37 Dose: 100 mls/hr Insulin Aspart (Novolog) 0 unit SC Q6 ANA PRN Reason: Protocol Last Admin: 12/15/17 05:54 Dose: 2 unit Insulin Detemir (Levemir) 10 unit SC HS [facility] Last Admin: 12/14/17 21:38 Dose: 10 unit Latanoprost (Xalatan Opht) 0 ml OD HS [facility] Last Admin: 12/14/17 22:37 Dose: 2.5 ml Metoclopramide HCl (Reglan) 5 mg GT 0600,1130,1630,2200 PRN PRN Reason: Constipation Metoprolol Tartrate (Lopressor) 25 mg PO BID [facility] Last Admin: 12/14/17 17:34 Dose: 25 mg Multivitamins/Vitamin C (Multi-Delyn Liquid) 5 ml PO DAILY [facility] Last Admin: 12/14/17 09:08 Dose: 5 ml Sennosides (Senokot Tab) 8.6 mg PO DAILY [facility] Last Admin: 12/14/17 10:45 Dose: Not Given - Labs Labs: 12/14/17 06:07 12/14/17 06:05 PT 13.1 SECONDS (9.7-12.2) H 12/09/17 01:33 INR 1.2 12/09/17 01:33 APTT 32 SECONDS (21-34) 12/09/17 01:33 - Constitutional Appears: No Acute Distress - Head Exam Head Exam: NORMAL INSPECTION - Neurological Exam Neurological Exam: Oriented x3 Neuro motor strength exam: Left Upper Extremity: 2/1, Right Upper Extremity: 0, Left Lower Extremity: 0, Right Lower Extremity: 0 Additional comments: neurological unchanged from previous examination. Assessment and Plan (1) Sepsis Assessment & Plan: Case discussed with Dr. españa, continue all current medical regimen, treat any electrolyte abnormalities. There is no new recommendation from neurology and patient problems is more on his infection, cardiac. neurology is signing off from this case, please re-consult if there is a change in his mental status inspite of infection and electrolyte abnormalities, and cardiac issues are resolved. Status: Acute
[2017-12-15 06:52] LABS: BLOOD UREA NITROGEN 70 mg/dL (9-20); CALCIUM 7.3 mg/dl (8.6-10.4); GFR AFRICAN-AMERICAN > 60; GFR NON-AFRICAN AMERICAN 52
[2017-12-15] MEDS: Multiple Vitamins Oral Solution PO SCH (09:08)
[2017-12-15] MEDS: Linezolid 600 mg in D5W 300 ml 600 MG/300 ML BAG IVPB SCH ×2 (09:09→22:30)
--- NOTE | 2017-12-15 12:50 | CP.PCM.PN ---
Subjective - Date & Time of Evaluation Date of Evaluation: 12/15/17 Time of Evaluation: 12:54 - Subjective Subjective: Normotensive FIO2 30% AFIB/Flutter rate controlled Objective - Vital Signs/Intake and Output Vital Signs (last 24 hours): Temp Pulse Resp BP Pulse Ox 98.1 F 72 20 116/81 98 12/15/17 08:00 12/15/17 08:00 12/15/17 08:00 12/15/17 09:07 12/15/17 08:00 Intake and Output: 12/15/17 12/15/17 06:59 18:59 Intake Total 50 Output Total 40 Balance 10 - Medications Medications: Current Medications Acetaminophen (Tylenol 650mg/20.3ml Solution Ud) 650 mg PO Q6 PRN PRN Reason: fever Last Admin: 12/14/17 04:14 Dose: 650 mg Ascorbic Acid (Vitamin C 500 Mg Tab) 500 mg GT DAILY [facility] Last Admin: 12/15/17 09:07 Dose: 500 mg Aspirin (Aspirin Chewable) 81 mg PO DAILY [facility] Last Admin: 12/08/17 09:55 Dose: 81 mg Bisacodyl (Dulcolax) 10 mg [place] Q24H PRN PRN Reason: Constipation Bisacodyl (Dulcolax) 10 mg [place] HS PRN PRN Reason: Constipation Diltiazem HCl (Cardizem) 90 mg PO Q6H [facility] Last Admin: 12/15/17 09:09 Dose: 90 mg Famotidine (Pepcid) 20 mg IVP DAILY [facility] Last Admin: 12/15/17 09:06 Dose: 20 mg Heparin Sodium (Porcine) (Heparin) 5,000 units SC Q8 [facility] Last Admin: 12/08/17 06:21 Dose: 5,000 units Linezolid (Zyvox 600mg/300ml D5w) 600 mg in 300 mls @ 200 mls/hr IVPB Q12 [facility] Last Admin: 12/15/17 09:09 Dose: 200 mls/hr Metronidazole (Flagyl) 500 mg in 100 mls @ 100 mls/hr IVPB Q8 [facility] Last Admin: 12/15/17 06:30 Dose: 100 mls/hr Insulin Aspart (Novolog) 0 unit SC Q6 ANA PRN Reason: Protocol Last Admin: 12/15/17 12:12 Dose: 34 unit Insulin Detemir (Levemir) 10 unit SC HS [facility] Last Admin: 12/14/17 21:38 Dose: 10 unit Latanoprost (Xalatan Opht) 0 ml OD HS [facility] Last Admin: 12/14/17 22:37 Dose: 2.5 ml Metoclopramide HCl (Reglan) 5 mg GT 0600,1130,1630,2200 PRN PRN Reason: Constipation Metoprolol Tartrate (Lopressor) 25 mg PO BID [facility] Last Admin: 12/15/17 09:07 Dose: 25 mg Multivitamins/Vitamin C (Multi-Delyn Liquid) 5 ml PO DAILY [facility] Last Admin: 12/15/17 09:08 Dose: 5 ml Sennosides (Senokot Tab) 8.6 mg PO DAILY [facility] Last Admin: 12/15/17 09:10 Dose: Not Given - Labs Labs: 12/14/17 06:07 12/15/17 06:24 PT 13.1 SECONDS (9.7-12.2) H 12/09/17 01:33 INR 1.2 12/09/17 01:33 APTT 32 SECONDS (21-34) 12/09/17 01:33 - Constitutional Appears: Chronically Ill - Head Exam Head Exam: NORMOCEPHALIC - ENT Exam ENT Exam: Mucous Membranes Moist - Neck Exam Neck Exam: absent: Normal Inspection - Respiratory Exam Respiratory Exam: Rhonchi - Cardiovascular Exam Cardiovascular Exam: Irregular Rhythm - Extremities Exam Extremities Exam: Pedal Edema Assessment and Plan - Assessment and Plan (Free Text) Assessment: A/P: 87 year old man with dementia, hydrocephalus s/p [employer] shunt, Respiratory failure with pleural effusions, lung injury, poor mental status, on Chronic TRACH/PEG, 2D echo images viewed by me: Moderate LV dysfunction, technically limited study due tachycardia during the study. EF 45%%, patient appears to be in afib CXR: B/L small-mod pleural effusions R>L This admission s/p IVCF and + RUE DVT Acute on chronic Diastolic CHF BP control Suggest IV lasix Afib chronic not a candidate for anticoagulation; ---> Rate control with diltiazem and BB titrate up as BP and HR tolerate. ---> Now s/p IVCF for LE DVT ---> + RUE DVT ---> Anemia and hx of GI bleed have prevented chronic anticoagulation Aspirin (Aspirin Chewable) 81 mg PO DAILY [facility] Last Admin: 12/08/17 09:55 Dose: 81 mg Diltiazem HCl (Cardizem) 90 mg PO Q6H [facility] Last Admin: 12/15/17 09:09 Dose: 90 mg Metoprolol Tartrate (Lopressor) 25 mg PO BID [facility] Last Admin: 12/15/17 09:07 Dose: 25 mg MRSA bacteremia,sputum, nasal on ABX Cont current management and supportive care:
--- NOTE | 2017-12-15 13:13 | CP.PCM.PN ---
Subjective - Date & Time of Evaluation Date of Evaluation: 12/15/17 Time of Evaluation: 13:10 - Subjective Subjective: remains with vent, unresponsive PEG feeds changed from nepro- K better now Na remains 149- on free water s/p episode AFib renal function stable Objective - Vital Signs/Intake and Output Vital Signs (last 24 hours): Temp Pulse Resp BP Pulse Ox 98.4 F 70 23 115/81 99 12/15/17 12:00 12/15/17 12:00 12/15/17 12:00 12/15/17 12:00 12/15/17 12:00 Intake and Output: 12/15/17 12/15/17 06:59 18:59 Intake Total 50 Output Total 40 Balance 10 - Medications Medications: Current Medications Acetaminophen (Tylenol 650mg/20.3ml Solution Ud) 650 mg PO Q6 PRN PRN Reason: fever Last Admin: 12/14/17 04:14 Dose: 650 mg Ascorbic Acid (Vitamin C 500 Mg Tab) 500 mg GT DAILY [facility] Last Admin: 12/15/17 09:07 Dose: 500 mg Aspirin (Aspirin Chewable) 81 mg PO DAILY [facility] Last Admin: 12/08/17 09:55 Dose: 81 mg Bisacodyl (Dulcolax) 10 mg [place] Q24H PRN PRN Reason: Constipation Bisacodyl (Dulcolax) 10 mg [place] HS PRN PRN Reason: Constipation Diltiazem HCl (Cardizem) 90 mg PO Q6H [facility] Last Admin: 12/15/17 09:09 Dose: 90 mg Famotidine (Pepcid) 20 mg IVP DAILY [facility] Last Admin: 12/15/17 09:06 Dose: 20 mg Heparin Sodium (Porcine) (Heparin) 5,000 units SC Q8 [facility] Last Admin: 12/08/17 06:21 Dose: 5,000 units Linezolid (Zyvox 600mg/300ml D5w) 600 mg in 300 mls @ 200 mls/hr IVPB Q12 [facility] Last Admin: 12/15/17 09:09 Dose: 200 mls/hr Metronidazole (Flagyl) 500 mg in 100 mls @ 100 mls/hr IVPB Q8 [facility] Last Admin: 12/15/17 06:30 Dose: 100 mls/hr Insulin Aspart (Novolog) 0 unit SC Q6 ANA PRN Reason: Protocol Last Admin: 12/15/17 12:12 Dose: 34 unit Insulin Detemir (Levemir) 10 unit SC HS [facility] Last Admin: 12/14/17 21:38 Dose: 10 unit Latanoprost (Xalatan Opht) 0 ml OD HS [facility] Last Admin: 12/14/17 22:37 Dose: 2.5 ml Metoclopramide HCl (Reglan) 5 mg [place] 0600,1130,1630,2200 PRN PRN Reason: Constipation Metoprolol Tartrate (Lopressor) 25 mg PO BID [facility] Last Admin: 12/15/17 09:07 Dose: 25 mg Multivitamins/Vitamin C (Multi-Delyn Liquid) 5 ml PO DAILY [facility] Last Admin: 12/15/17 09:08 Dose: 5 ml Sennosides (Senokot Tab) 8.6 mg PO DAILY [facility] Last Admin: 12/15/17 09:10 Dose: Not Given - Labs Labs: 12/14/17 06:07 12/15/17 06:24 PT 13.1 SECONDS (9.7-12.2) H 12/09/17 01:33 INR 1.2 12/09/17 01:33 APTT 32 SECONDS (21-34) 12/09/17 01:33 - Constitutional Appears: In Acute Distress, Chronically Ill - Head Exam Head Exam: ATRAUMATIC, NORMAL INSPECTION - Eye Exam Eye Exam: EOMI, Normal appearance - Neck Exam Neck Exam: Normal Inspection. absent: Tenderness - Respiratory Exam Respiratory Exam: Rhonchi, Respiratory Distress - Cardiovascular Exam Cardiovascular Exam: Tachycardia, REGULAR RHYTHM - GI/Abdominal Exam GI & Abdominal Exam: Soft. absent: Tenderness - Extremities Exam Extremities Exam: Normal Inspection. absent: Tenderness - Neurological Exam Neurological Exam: Altered, Motor Sensory Deficit - Skin Skin Exam: Dry, Warm Assessment and Plan (1) Pneumonia Status: Acute (2) Sepsis Status: Acute (3) Hypernatremia Status: Acute - Assessment and Plan (Free Text) Plan: same PEG feeds, free water monitor lytes
[2017-12-15 13:14] LABS: SOURCE CSF
--- NOTE | 2017-12-15 17:42 | CP.PCM.PN ---
Subjective - Date & Time of Evaluation Date of Evaluation: 12/15/17 Time of Evaluation: 09:00 - Subjective Subjective: improving slowly await LTAC Objective - Vital Signs/Intake and Output Vital Signs (last 24 hours): Temp Pulse Resp BP Pulse Ox 96.7 F L 84 18 108/52 L 99 12/15/17 16:00 12/15/17 16:00 12/15/17 16:00 12/15/17 17:11 12/15/17 16:00 Intake and Output: 12/15/17 12/15/17 06:59 18:59 Intake Total 50 Output Total 40 Balance 10 - Medications Medications: Current Medications Acetaminophen (Tylenol 650mg/20.3ml Solution Ud) 650 mg PO Q6 PRN PRN Reason: fever Last Admin: 12/14/17 04:14 Dose: 650 mg Ascorbic Acid (Vitamin C 500 Mg Tab) 500 mg GT DAILY [facility] Last Admin: 12/15/17 09:07 Dose: 500 mg Aspirin (Aspirin Chewable) 81 mg PO DAILY [facility] Last Admin: 12/08/17 09:55 Dose: 81 mg Bisacodyl (Dulcolax) 10 mg [place] Q24H PRN PRN Reason: Constipation Bisacodyl (Dulcolax) 10 mg [place] HS PRN PRN Reason: Constipation Diltiazem HCl (Cardizem) 90 mg PO Q6H [facility] Last Admin: 12/15/17 15:54 Dose: 90 mg Famotidine (Pepcid) 20 mg IVP DAILY [facility] Last Admin: 12/15/17 09:06 Dose: 20 mg Heparin Sodium (Porcine) (Heparin) 5,000 units SC Q8 [facility] Last Admin: 12/08/17 06:21 Dose: 5,000 units Linezolid (Zyvox 600mg/300ml D5w) 600 mg in 300 mls @ 200 mls/hr IVPB Q12 [facility] Last Admin: 12/15/17 09:09 Dose: 200 mls/hr Insulin Aspart (Novolog) 0 unit SC Q6 ANA PRN Reason: Protocol Last Admin: 12/15/17 12:12 Dose: 34 unit Insulin Detemir (Levemir) 10 unit SC HS [facility] Last Admin: 12/14/17 21:38 Dose: 10 unit Latanoprost (Xalatan Opht) 0 ml OD HS [facility] Last Admin: 12/14/17 22:37 Dose: 2.5 ml Metoclopramide HCl (Reglan) 5 mg GT 0600,1130,1630,2200 PRN PRN Reason: Constipation Metoprolol Tartrate (Lopressor) 25 mg PO BID [facility] Last Admin: 12/15/17 17:11 Dose: 25 mg Multivitamins/Vitamin C (Multi-Delyn Liquid) 5 ml PO DAILY [facility] Last Admin: 12/15/17 09:08 Dose: 5 ml Sennosides (Senokot Tab) 8.6 mg PO DAILY [facility] Last Admin: 12/15/17 09:10 Dose: Not Given - Labs Labs: 12/14/17 06:07 12/15/17 06:24 PT 13.1 SECONDS (9.7-12.2) H 12/09/17 01:33 INR 1.2 12/09/17 01:33 APTT 32 SECONDS (21-34) 12/09/17 01:33 - Constitutional Appears: Confused, Chronically Ill - Head Exam Head Exam: NORMOCEPHALIC - Eye Exam Eye Exam: absent: Scleral icterus - ENT Exam ENT Exam: Mucous Membranes Dry - Neck Exam Neck Exam: absent: Lymphadenopathy - Respiratory Exam Respiratory Exam: Decreased Breath Sounds - Cardiovascular Exam Cardiovascular Exam: REGULAR RHYTHM - GI/Abdominal Exam GI & Abdominal Exam: Distended Assessment and Plan (1) Respiratory failure Status: Acute (2) Pneumonia Status: Acute (3) Bandemia Status: Acute (4) Fever Status: Acute (5) Lethargy Status: Acute (6) Sepsis Status: Acute (7) Respiratory failure Status: Acute (8) Pneumonia Status: Acute
--- NOTE | 2017-12-15 18:06 | CP.PCM.PN ---
Subjective - Date & Time of Evaluation Date of Evaluation: 12/15/17 Time of Evaluation: 18:06 Objective - Vital Signs/Intake and Output Vital Signs (last 24 hours): Temp Pulse Resp BP Pulse Ox 96.7 F L 84 18 108/52 L 99 12/15/17 16:00 12/15/17 16:00 12/15/17 16:00 12/15/17 17:11 12/15/17 16:00 Intake and Output: 12/15/17 12/15/17 06:59 18:59 Intake Total 50 Output Total 40 Balance 10 - Medications Medications: Current Medications Acetaminophen (Tylenol 650mg/20.3ml Solution Ud) 650 mg PO Q6 PRN PRN Reason: fever Last Admin: 12/14/17 04:14 Dose: 650 mg Ascorbic Acid (Vitamin C 500 Mg Tab) 500 mg GT DAILY [facility] Last Admin: 12/15/17 09:07 Dose: 500 mg Aspirin (Aspirin Chewable) 81 mg PO DAILY [facility] Last Admin: 12/08/17 09:55 Dose: 81 mg Bisacodyl (Dulcolax) 10 mg [place] Q24H PRN PRN Reason: Constipation Bisacodyl (Dulcolax) 10 mg [place] HS PRN PRN Reason: Constipation Diltiazem HCl (Cardizem) 90 mg PO Q6H [facility] Last Admin: 12/15/17 15:54 Dose: 90 mg Famotidine (Pepcid) 20 mg IVP DAILY [facility] Last Admin: 12/15/17 09:06 Dose: 20 mg Heparin Sodium (Porcine) (Heparin) 5,000 units SC Q8 [facility] Last Admin: 12/08/17 06:21 Dose: 5,000 units Linezolid (Zyvox 600mg/300ml D5w) 600 mg in 300 mls @ 200 mls/hr IVPB Q12 [facility] Last Admin: 12/15/17 09:09 Dose: 200 mls/hr Insulin Aspart (Novolog) 0 unit SC Q6 ANA PRN Reason: Protocol Last Admin: 12/15/17 12:12 Dose: 34 unit Insulin Detemir (Levemir) 10 unit SC HS [facility] Last Admin: 12/14/17 21:38 Dose: 10 unit Latanoprost (Xalatan Opht) 0 ml OD HS [facility] Last Admin: 12/14/17 22:37 Dose: 2.5 ml Metoclopramide HCl (Reglan) 5 mg GT 0600,1130,1630,2200 PRN PRN Reason: Constipation Metoprolol Tartrate (Lopressor) 25 mg PO BID [facility] Last Admin: 12/15/17 17:11 Dose: 25 mg Multivitamins/Vitamin C (Multi-Delyn Liquid) 5 ml PO DAILY [facility] Last Admin: 12/15/17 09:08 Dose: 5 ml Sennosides (Senokot Tab) 8.6 mg PO DAILY [facility] Last Admin: 12/15/17 09:10 Dose: Not Given - Labs Labs: 12/14/17 06:07 12/15/17 06:24 PT 13.1 SECONDS (9.7-12.2) H 12/09/17 01:33 INR 1.2 12/09/17 01:33 APTT 32 SECONDS (21-34) 12/09/17 01:33
--- NOTE | 2017-12-15 18:58 | CP.PCM.PN ---
Subjective - Date & Time of Evaluation Date of Evaluation: 12/15/17 Time of Evaluation: 14:20 - Subjective Subjective: clinically same Objective - Vital Signs/Intake and Output Vital Signs (last 24 hours): Temp Pulse Resp BP Pulse Ox 96.7 F L 84 18 108/52 L 99 12/15/17 16:00 12/15/17 16:00 12/15/17 16:00 12/15/17 17:11 12/15/17 16:00 Intake and Output: 12/15/17 12/15/17 06:59 18:59 Intake Total 50 Output Total 40 Balance 10 - Medications Medications: Current Medications Acetaminophen (Tylenol 650mg/20.3ml Solution Ud) 650 mg PO Q6 PRN PRN Reason: fever Last Admin: 12/14/17 04:14 Dose: 650 mg Ascorbic Acid (Vitamin C 500 Mg Tab) 500 mg GT DAILY [facility] Last Admin: 12/15/17 09:07 Dose: 500 mg Aspirin (Aspirin Chewable) 81 mg PO DAILY [facility] Last Admin: 12/08/17 09:55 Dose: 81 mg Bisacodyl (Dulcolax) 10 mg [place] Q24H PRN PRN Reason: Constipation Bisacodyl (Dulcolax) 10 mg [place] HS PRN PRN Reason: Constipation Diltiazem HCl (Cardizem) 90 mg PO Q6H [facility] Last Admin: 12/15/17 15:54 Dose: 90 mg Famotidine (Pepcid) 20 mg IVP DAILY [facility] Last Admin: 12/15/17 09:06 Dose: 20 mg Heparin Sodium (Porcine) (Heparin) 5,000 units SC Q8 [facility] Last Admin: 12/08/17 06:21 Dose: 5,000 units Linezolid (Zyvox 600mg/300ml D5w) 600 mg in 300 mls @ 200 mls/hr IVPB Q12 [facility] Last Admin: 12/15/17 09:09 Dose: 200 mls/hr Insulin Aspart (Novolog) 0 unit SC Q6 ANA PRN Reason: Protocol Last Admin: 12/15/17 18:08 Dose: 2 unit Insulin Detemir (Levemir) 10 unit SC HS [facility] Last Admin: 12/14/17 21:38 Dose: 10 unit Latanoprost (Xalatan Opht) 0 ml OD HS [facility] Last Admin: 12/14/17 22:37 Dose: 2.5 ml Metoclopramide HCl (Reglan) 5 mg GT 0600,1130,1630,2200 PRN PRN Reason: Constipation Metoprolol Tartrate (Lopressor) 25 mg PO BID [facility] Last Admin: 12/15/17 17:11 Dose: 25 mg Multivitamins/Vitamin C (Multi-Delyn Liquid) 5 ml PO DAILY [facility] Last Admin: 12/15/17 09:08 Dose: 5 ml Sennosides (Senokot Tab) 8.6 mg PO DAILY [facility] Last Admin: 12/15/17 09:10 Dose: Not Given - Labs Labs: 12/14/17 06:07 12/15/17 06:24 PT 13.1 SECONDS (9.7-12.2) H 12/09/17 01:33 INR 1.2 12/09/17 01:33 APTT 32 SECONDS (21-34) 12/09/17 01:33 - Constitutional Appears: Well - Head Exam Head Exam: ATRAUMATIC, NORMAL INSPECTION, NORMOCEPHALIC - Eye Exam Eye Exam: EOMI, Normal appearance, PERRL Pupil Exam: NORMAL ACCOMODATION, PERRL - ENT Exam ENT Exam: Mucous Membranes Moist, Normal Exam - Neck Exam Neck Exam: Full ROM, Normal Inspection. absent: Lymphadenopathy - Respiratory Exam Respiratory Exam: Decreased Breath Sounds - Cardiovascular Exam Cardiovascular Exam: REGULAR RHYTHM, +S1, +S2 - GI/Abdominal Exam GI & Abdominal Exam: Soft, Diminished Bowel Sounds - Rectal Exam Rectal Exam: Deferred Assessment and Plan (1) Bandemia Status: Acute (2) Dyspnea Status: Acute (3) Fever Status: Acute (4) Lethargy Status: Acute (5) Sepsis Status: Acute (6) Contusion Status: Acute (7) Fall Status: Acute
[2017-12-15] MEDS: Insulin Detemir 100 units/ml Vial (Levemir) SC SCH (22:26)
[2017-12-15] MEDS: Latanoprost 2.5 ml Opht Soln OD SCH (22:28)
[2017-12-16] MEDS: (Novolog) Insulin Aspart, Recombinant 100 u/ml 10 ml vial SC SCH ×4 (01:24→17:45)
[2017-12-16] MEDS: Linezolid 600 mg in D5W 300 ml 600 MG/300 ML BAG IVPB SCH ×2 (10:11→22:15)
[2017-12-16] MEDS: Multiple Vitamins Oral Solution PO SCH (12:08)
[2017-12-16] MEDS ORDERED: Acetaminophen 650mg/20.3ml solution UD PO PRN (15:00)
--- NOTE | 2017-12-16 16:26 | CP.PCM.PN ---
Subjective - Date & Time of Evaluation Date of Evaluation: 12/16/17 Time of Evaluation: 16:25 - Subjective Subjective: Events reviewed Objective - Vital Signs/Intake and Output Vital Signs (last 24 hours): Temp Pulse Resp BP Pulse Ox 98.2 F 93 H 24 127/54 L 99 12/16/17 16:00 12/16/17 08:00 12/16/17 08:00 12/16/17 10:10 12/16/17 08:00 Intake and Output: 12/16/17 12/16/17 06:59 18:59 Intake Total 1400 Output Total 1300 Balance 100 - Medications Medications: Current Medications Acetaminophen (Tylenol 650mg/20.3ml Solution Ud) 650 mg PO Q6 PRN PRN Reason: fever Ascorbic Acid (Vitamin C 500 Mg Tab) 500 mg GT DAILY [facility] Last Admin: 12/16/17 10:11 Dose: 500 mg Aspirin (Aspirin Chewable) 81 mg PO DAILY [facility] Last Admin: 12/08/17 09:55 Dose: 81 mg Bisacodyl (Dulcolax) 10 mg [place] Q24H PRN PRN Reason: Constipation Bisacodyl (Dulcolax) 10 mg [place] HS PRN PRN Reason: Constipation Diltiazem HCl (Cardizem) 90 mg PO Q6H [facility] Last Admin: 12/16/17 16:18 Dose: 90 mg Famotidine (Pepcid) 20 mg IVP DAILY [facility] Last Admin: 12/16/17 10:11 Dose: 20 mg Heparin Sodium (Porcine) (Heparin) 5,000 units SC Q8 [facility] Last Admin: 12/08/17 06:21 Dose: 5,000 units Linezolid (Zyvox 600mg/300ml D5w) 600 mg in 300 mls @ 200 mls/hr IVPB Q12 [facility] Last Admin: 12/16/17 10:11 Dose: 200 mls/hr Insulin Aspart (Novolog) 0 unit SC Q6 ANA PRN Reason: Protocol Last Admin: 12/16/17 12:08 Dose: 2 unit Insulin Detemir (Levemir) 10 unit SC HS [facility] Last Admin: 12/15/17 22:26 Dose: 10 unit Latanoprost (Xalatan Opht) 0 ml OU HS [facility] Metoclopramide HCl (Reglan) 5 mg GT 0600,1130,1630,2200 PRN PRN Reason: Constipation Metoprolol Tartrate (Lopressor) 25 mg PO BID [facility] Last Admin: 12/16/17 10:10 Dose: 25 mg Multivitamins/Vitamin C (Multi-Delyn Liquid) 5 ml PO DAILY [facility] Last Admin: 12/16/17 12:08 Dose: 5 ml Sennosides (Senokot Tab) 8.6 mg PO DAILY [facility] Last Admin: 12/16/17 10:24 Dose: Not Given - Labs Labs: 12/14/17 06:07 12/15/17 06:24 PT 13.1 SECONDS (9.7-12.2) H 12/09/17 01:33 INR 1.2 12/09/17 01:33 APTT 32 SECONDS (21-34) 12/09/17 01:33 Assessment and Plan - Assessment and Plan (Free Text) Assessment: Assessment: A/P: 87 year old man with dementia, hydrocephalus s/p [employer] shunt, Respiratory failure with pleural effusions, lung injury, poor mental status, on Chronic TRACH/PEG, 2D echo images viewed by me: Moderate LV dysfunction, technically limited study due tachycardia during the study. EF 45%%, patient appears to be in afib CXR: B/L small-mod pleural effusions R>L This admission s/p IVCF and + RUE DVT Acute on chronic Diastolic CHF BP control Suggest IV lasix Afib chronic not a candidate for anticoagulation; ---> Rate control with diltiazem and BB titrate up as BP and HR tolerate. ---> Now s/p IVCF for LE DVT ---> + RUE DVT ---> Anemia and hx of GI bleed have prevented chronic anticoagulation MRSA bacteremia,sputum, nasal on ABX Cont current management and supportive care:
--- NOTE | 2017-12-16 16:57 | CP.PCM.PN ---
Subjective - Date & Time of Evaluation Date of Evaluation: 12/16/17 Time of Evaluation: 14:40 - Subjective Subjective: clinically same Objective - Vital Signs/Intake and Output Vital Signs (last 24 hours): Temp Pulse Resp BP Pulse Ox 98.2 F 93 H 24 127/54 L 99 12/16/17 16:00 12/16/17 08:00 12/16/17 08:00 12/16/17 10:10 12/16/17 08:00 Intake and Output: 12/16/17 12/16/17 06:59 18:59 Intake Total 1400 Output Total 1300 Balance 100 - Medications Medications: Current Medications Acetaminophen (Tylenol 650mg/20.3ml Solution Ud) 650 mg PO Q6 PRN PRN Reason: fever Ascorbic Acid (Vitamin C 500 Mg Tab) 500 mg GT DAILY [facility] Last Admin: 12/16/17 10:11 Dose: 500 mg Aspirin (Aspirin Chewable) 81 mg PO DAILY [facility] Last Admin: 12/08/17 09:55 Dose: 81 mg Bisacodyl (Dulcolax) 10 mg [place] Q24H PRN PRN Reason: Constipation Bisacodyl (Dulcolax) 10 mg [place] HS PRN PRN Reason: Constipation Diltiazem HCl (Cardizem) 90 mg PO Q6H [facility] Last Admin: 12/16/17 16:18 Dose: 90 mg Famotidine (Pepcid) 20 mg IVP DAILY [facility] Last Admin: 12/16/17 10:11 Dose: 20 mg Heparin Sodium (Porcine) (Heparin) 5,000 units SC Q8 [facility] Last Admin: 12/08/17 06:21 Dose: 5,000 units Linezolid (Zyvox 600mg/300ml D5w) 600 mg in 300 mls @ 200 mls/hr IVPB Q12 [facility] Last Admin: 12/16/17 10:11 Dose: 200 mls/hr Insulin Aspart (Novolog) 0 unit SC Q6 ANA PRN Reason: Protocol Last Admin: 12/16/17 12:08 Dose: 2 unit Insulin Detemir (Levemir) 10 unit SC HS [facility] Last Admin: 12/15/17 22:26 Dose: 10 unit Latanoprost (Xalatan Opht) 0 ml OU HS [facility] Metoclopramide HCl (Reglan) 5 mg GT 0600,1130,1630,2200 PRN PRN Reason: Constipation Metoprolol Tartrate (Lopressor) 25 mg PO BID [facility] Last Admin: 12/16/17 10:10 Dose: 25 mg Multivitamins/Vitamin C (Multi-Delyn Liquid) 5 ml PO DAILY [facility] Last Admin: 12/16/17 12:08 Dose: 5 ml Sennosides (Senokot Tab) 8.6 mg PO DAILY [facility] Last Admin: 12/16/17 10:24 Dose: Not Given - Labs Labs: 12/14/17 06:07 12/15/17 06:24 PT 13.1 SECONDS (9.7-12.2) H 12/09/17 01:33 INR 1.2 12/09/17 01:33 APTT 32 SECONDS (21-34) 12/09/17 01:33 - Constitutional Appears: Well - Head Exam Head Exam: ATRAUMATIC, NORMAL INSPECTION, NORMOCEPHALIC - Eye Exam Eye Exam: EOMI, Normal appearance, PERRL - ENT Exam ENT Exam: Mucous Membranes Moist, Normal Exam - Neck Exam Neck Exam: Full ROM, Normal Inspection. absent: Lymphadenopathy - Respiratory Exam Respiratory Exam: Decreased Breath Sounds - Cardiovascular Exam Cardiovascular Exam: REGULAR RHYTHM, +S1, +S2 - GI/Abdominal Exam GI & Abdominal Exam: Soft, Diminished Bowel Sounds - Rectal Exam Rectal Exam: Deferred Assessment and Plan (1) Bandemia Status: Acute (2) Dyspnea Status: Acute (3) Fever Status: Acute (4) Lethargy Status: Acute (5) Sepsis Status: Acute (6) Contusion Status: Acute (7) Fall Status: Acute
[2017-12-16] MEDS ORDERED: Latanoprost 2.5 ml Opht Soln OD SCH ×2 (22:00)
[2017-12-16] MEDS: Insulin Detemir 100 units/ml Vial (Levemir) SC SCH (22:12)
[2017-12-16] MEDS: Latanoprost 2.5 ml Opht Soln OU SCH (23:00)
[2017-12-17] MEDS: (Novolog) Insulin Aspart, Recombinant 100 u/ml 10 ml vial SC SCH ×4 (00:41→19:13)
[2017-12-17] MEDS: Multiple Vitamins Oral Solution PO SCH (09:15)
[2017-12-17] MEDS: Linezolid 600 mg in D5W 300 ml 600 MG/300 ML BAG IVPB SCH ×2 (09:25→21:49)
--- NOTE | 2017-12-17 15:15 | CP.PCM.PN ---
Subjective - Date & Time of Evaluation Date of Evaluation: 12/17/17 Time of Evaluation: 15:14 Objective - Vital Signs/Intake and Output Vital Signs (last 24 hours): Temp Pulse Resp BP Pulse Ox 97.9 F 71 24 113/56 L 99 12/17/17 12:00 12/17/17 12:00 12/17/17 12:00 12/17/17 09:14 12/17/17 12:00 - Medications Medications: Current Medications Acetaminophen (Tylenol 650mg/20.3ml Solution Ud) 650 mg PO Q6 PRN PRN Reason: fever Ascorbic Acid (Vitamin C 500 Mg Tab) 500 mg GT DAILY [facility] Last Admin: 12/17/17 09:15 Dose: 500 mg Aspirin (Aspirin Chewable) 81 mg PO DAILY [facility] Last Admin: 12/08/17 09:55 Dose: 81 mg Bisacodyl (Dulcolax) [address] Q24H PRN PRN Reason: Constipation Bisacodyl (Dulcolax) [address] HS PRN PRN Reason: Constipation Diltiazem HCl (Cardizem) 90 mg PO Q6H [facility] Last Admin: 12/17/17 09:14 Dose: 90 mg Famotidine (Pepcid) 20 mg IVP DAILY [facility] Last Admin: 12/17/17 09:24 Dose: 20 mg Heparin Sodium (Porcine) (Heparin) 5,000 units SC Q8 [facility] Last Admin: 12/08/17 06:21 Dose: 5,000 units Linezolid (Zyvox 600mg/300ml D5w) 600 mg in 300 mls @ 200 mls/hr IVPB Q12 [facility] Last Admin: 12/17/17 09:25 Dose: 200 mls/hr Insulin Aspart (Novolog) 0 unit SC Q6 ANA PRN Reason: Protocol Last Admin: 12/17/17 12:10 Dose: 2 unit Insulin Detemir (Levemir) 10 unit SC HS [facility] Last Admin: 12/16/17 22:12 Dose: 10 unit Latanoprost (Xalatan Opht) 0 ml OU HS [facility] Last Admin: 12/16/17 23:00 Dose: 2.5 ml Metoclopramide HCl (Reglan) 5 mg GT 0600,1130,1630,2200 PRN PRN Reason: Constipation Metoprolol Tartrate (Lopressor) 25 mg PO BID [facility] Last Admin: 12/17/17 09:14 Dose: 25 mg Multivitamins/Vitamin C (Multi-Delyn Liquid) 5 ml PO DAILY [facility] Last Admin: 12/17/17 09:15 Dose: 5 ml Sennosides (Senokot Tab) 8.6 mg PO DAILY [facility] Last Admin: 12/17/17 12:33 Dose: Not Given - Labs Labs: 12/14/17 06:07 12/15/17 06:24 PT 13.1 SECONDS (9.7-12.2) H 12/09/17 01:33 INR 1.2 12/09/17 01:33 APTT 32 SECONDS (21-34) 12/09/17 01:33
--- NOTE | 2017-12-17 15:47 | CP.PCM.PN ---
Subjective - Date & Time of Evaluation Date of Evaluation: 12/17/17 Time of Evaluation: 08:00 - Subjective Subjective: no fever iv rx renewd Objective - Vital Signs/Intake and Output Vital Signs (last 24 hours): Temp Pulse Resp BP Pulse Ox 97.9 F 71 24 113/56 L 99 12/17/17 12:00 12/17/17 12:00 12/17/17 12:00 12/17/17 09:14 12/17/17 12:00 - Medications Medications: Current Medications Acetaminophen (Tylenol 650mg/20.3ml Solution Ud) 650 mg PO Q6 PRN PRN Reason: fever Ascorbic Acid (Vitamin C 500 Mg Tab) 500 mg GT DAILY [facility] Last Admin: 12/17/17 09:15 Dose: 500 mg Aspirin (Aspirin Chewable) 81 mg PO DAILY [facility] Last Admin: 12/08/17 09:55 Dose: 81 mg Bisacodyl (Dulcolax) 10 mg [place] Q24H PRN PRN Reason: Constipation Bisacodyl (Dulcolax) 10 mg [place] HS PRN PRN Reason: Constipation Diltiazem HCl (Cardizem) 90 mg PO Q6H [facility] Last Admin: 12/17/17 09:14 Dose: 90 mg Famotidine (Pepcid) 20 mg IVP DAILY [facility] Last Admin: 12/17/17 09:24 Dose: 20 mg Heparin Sodium (Porcine) (Heparin) 5,000 units SC Q8 [facility] Last Admin: 12/08/17 06:21 Dose: 5,000 units Linezolid (Zyvox 600mg/300ml D5w) 600 mg in 300 mls @ 200 mls/hr IVPB Q12 [facility] Last Admin: 12/17/17 09:25 Dose: 200 mls/hr Insulin Aspart (Novolog) 0 unit SC Q6 ANA PRN Reason: Protocol Last Admin: 12/17/17 12:10 Dose: 2 unit Insulin Detemir (Levemir) 10 unit SC HS [facility] Last Admin: 12/16/17 22:12 Dose: 10 unit Latanoprost (Xalatan Opht) 0 ml OU HS [facility] Last Admin: 12/16/17 23:00 Dose: 2.5 ml Metoclopramide HCl (Reglan) 5 mg GT 0600,1130,1630,2200 PRN PRN Reason: Constipation Metoprolol Tartrate (Lopressor) 25 mg PO BID [facility] Last Admin: 12/17/17 09:14 Dose: 25 mg Multivitamins/Vitamin C (Multi-Delyn Liquid) 5 ml PO DAILY [facility] Last Admin: 12/17/17 09:15 Dose: 5 ml Sennosides (Senokot Tab) 8.6 mg PO DAILY [facility] Last Admin: 12/17/17 12:33 Dose: Not Given - Labs Labs: 12/14/17 06:07 12/15/17 06:24 PT 13.1 SECONDS (9.7-12.2) H 12/09/17 01:33 INR 1.2 12/09/17 01:33 APTT 32 SECONDS (21-34) 12/09/17 01:33 - Constitutional Appears: Non-toxic, Confused, Cachectic, Chronically Ill - Head Exam Head Exam: NORMOCEPHALIC - Eye Exam Eye Exam: PERRL - ENT Exam ENT Exam: Mucous Membranes Dry - Neck Exam Neck Exam: absent: Lymphadenopathy - Respiratory Exam Respiratory Exam: Decreased Breath Sounds - Cardiovascular Exam Cardiovascular Exam: REGULAR RHYTHM - GI/Abdominal Exam GI & Abdominal Exam: Distended, Soft - Rectal Exam Rectal Exam: Deferred - Exam Exam: NORMAL INSPECTION - Extremities Exam Extremities Exam: Pedal Edema - Back Exam Back Exam: absent: CVA tenderness (L), CVA tenderness (R) - Neurological Exam Neurological Exam: Altered Assessment and Plan (1) Respiratory failure Status: Acute (2) Pneumonia Status: Acute (3) Bandemia Status: Acute (4) Fever Status: Acute (5) Lethargy Status: Acute (6) Sepsis Status: Acute (7) Respiratory failure Status: Acute (8) Pneumonia Status: Acute - Assessment and Plan (Free Text) Assessment: iv rx renewed for ltac
--- NOTE | 2017-12-17 16:28 | CP.PCM.PN ---
Subjective - Date & Time of Evaluation Date of Evaluation: 12/17/17 Time of Evaluation: 16:00 - Subjective Subjective: clinically same Objective - Vital Signs/Intake and Output Vital Signs (last 24 hours): Temp Pulse Resp BP Pulse Ox 97.9 F 71 24 113/56 L 99 12/17/17 12:00 12/17/17 12:00 12/17/17 12:00 12/17/17 09:14 12/17/17 12:00 - Medications Medications: Current Medications Acetaminophen (Tylenol 650mg/20.3ml Solution Ud) 650 mg PO Q6 PRN PRN Reason: fever Ascorbic Acid (Vitamin C 500 Mg Tab) 500 mg GT DAILY [facility] Last Admin: 12/17/17 09:15 Dose: 500 mg Aspirin (Aspirin Chewable) 81 mg PO DAILY [facility] Last Admin: 12/08/17 09:55 Dose: 81 mg Bisacodyl (Dulcolax) 10 mg [place] Q24H PRN PRN Reason: Constipation Bisacodyl (Dulcolax) 10 mg [place] HS PRN PRN Reason: Constipation Diltiazem HCl (Cardizem) 90 mg PO Q6H [facility] Last Admin: 12/17/17 15:56 Dose: 90 mg Famotidine (Pepcid) 20 mg IVP DAILY [facility] Last Admin: 12/17/17 09:24 Dose: 20 mg Heparin Sodium (Porcine) (Heparin) 5,000 units SC Q8 [facility] Last Admin: 12/08/17 06:21 Dose: 5,000 units Linezolid (Zyvox 600mg/300ml D5w) 600 mg in 300 mls @ 200 mls/hr IVPB Q12 [facility] Insulin Aspart (Novolog) 0 unit SC Q6 ANA PRN Reason: Protocol Last Admin: 12/17/17 12:10 Dose: 2 unit Insulin Detemir (Levemir) 10 unit SC HS [facility] Last Admin: 12/16/17 22:12 Dose: 10 unit Latanoprost (Xalatan Opht) 0 ml OU HS [facility] Last Admin: 12/16/17 23:00 Dose: 2.5 ml Metoclopramide HCl (Reglan) 5 mg GT 0600,1130,1630,2200 PRN PRN Reason: Constipation Metoprolol Tartrate (Lopressor) 25 mg PO BID [facility] Last Admin: 12/17/17 09:14 Dose: 25 mg Multivitamins/Vitamin C (Multi-Delyn Liquid) 5 ml PO DAILY [facility] Last Admin: 12/17/17 09:15 Dose: 5 ml Sennosides (Senokot Tab) 8.6 mg PO DAILY [facility] Last Admin: 12/17/17 12:33 Dose: Not Given - Labs Labs: 12/14/17 06:07 12/15/17 06:24 PT 13.1 SECONDS (9.7-12.2) H 12/09/17 01:33 INR 1.2 12/09/17 01:33 APTT 32 SECONDS (21-34) 12/09/17 01:33 Assessment and Plan (1) Bandemia Status: Acute (2) Dyspnea Status: Acute (3) Fever Status: Acute (4) Lethargy Status: Acute (5) Sepsis Status: Acute (6) Contusion Status: Acute (7) Fall Status: Acute
[2017-12-17] MEDS: Insulin Detemir 100 units/ml Vial (Levemir) SC SCH (21:48)
[2017-12-17] MEDS: Latanoprost 2.5 ml Opht Soln OU SCH (21:51)
[2017-12-18] MEDS: (Novolog) Insulin Aspart, Recombinant 100 u/ml 10 ml vial SC SCH ×4 (00:35→18:05)
[2017-12-18] MEDS: Multiple Vitamins Oral Solution PO SCH (09:16)
[2017-12-18] MEDS: Linezolid 600 mg in D5W 300 ml 600 MG/300 ML BAG IVPB SCH ×2 (09:17→21:09)
--- NOTE | 2017-12-18 09:46 | CP.PCM.PN ---
Subjective - Date & Time of Evaluation Date of Evaluation: 12/18/17 Time of Evaluation: 09:43 - Subjective Subjective: Clinically unchanged Tachycardia: noted BP remains acceptable TRACH for VDRF PEG feeding Objective - Vital Signs/Intake and Output Vital Signs (last 24 hours): Temp Pulse Resp BP Pulse Ox 97.6 F 103 H 18 123/69 99 12/18/17 04:00 12/18/17 04:00 12/18/17 04:00 12/18/17 09:16 12/18/17 04:00 Intake and Output: 12/18/17 12/18/17 06:59 18:59 Intake Total 900 Output Total 650 Balance 250 - Medications Medications: Current Medications Acetaminophen (Tylenol 650mg/20.3ml Solution Ud) 650 mg PO Q6 PRN PRN Reason: fever Ascorbic Acid (Vitamin C 500 Mg Tab) 500 mg GT DAILY [facility] Last Admin: 12/18/17 09:16 Dose: 500 mg Aspirin (Aspirin Chewable) 81 mg PO DAILY [facility] Last Admin: 12/08/17 09:55 Dose: 81 mg Bisacodyl (Dulcolax) 10 mg [place] Q24H PRN PRN Reason: Constipation Bisacodyl (Dulcolax) 10 mg [place] HS PRN PRN Reason: Constipation Diltiazem HCl (Cardizem) 90 mg PO Q6H [facility] Last Admin: 12/18/17 09:16 Dose: 90 mg Famotidine (Pepcid) 20 mg IVP DAILY [facility] Last Admin: 12/17/17 09:24 Dose: 20 mg Heparin Sodium (Porcine) (Heparin) 5,000 units SC Q8 [facility] Last Admin: 12/08/17 06:21 Dose: 5,000 units Linezolid (Zyvox 600mg/300ml D5w) 600 mg in 300 mls @ 200 mls/hr IVPB Q12 [facility] Last Admin: 12/18/17 09:17 Dose: 200 mls/hr Insulin Aspart (Novolog) 0 unit SC Q6 ANA PRN Reason: Protocol Last Admin: 12/18/17 06:05 Dose: Not Given Insulin Detemir (Levemir) 10 unit SC HS [facility] Last Admin: 12/17/17 21:48 Dose: 10 unit Latanoprost (Xalatan Opht) 0 ml OU HS [facility] Last Admin: 12/17/17 21:51 Dose: 2.5 ml Metoclopramide HCl (Reglan) 5 mg GT 0600,1130,1630,2200 PRN PRN Reason: Constipation Metoprolol Tartrate (Lopressor) 25 mg PO BID [facility] Last Admin: 12/18/17 09:16 Dose: 25 mg Multivitamins/Vitamin C (Multi-Delyn Liquid) 5 ml PO DAILY [facility] Last Admin: 12/18/17 09:16 Dose: 5 ml Sennosides (Senokot Tab) 8.6 mg PO DAILY [facility] Last Admin: 12/18/17 09:18 Dose: Not Given - Labs Labs: 12/14/17 06:07 12/15/17 06:24 PT 13.1 SECONDS (9.7-12.2) H 12/09/17 01:33 INR 1.2 12/09/17 01:33 APTT 32 SECONDS (21-34) 12/09/17 01:33 - Constitutional Appears: Chronically Ill - Cardiovascular Exam Cardiovascular Exam: REGULAR RHYTHM, +S1, +S2. absent: Gallop - GI/Abdominal Exam GI & Abdominal Exam: Soft - Extremities Exam Extremities Exam: absent: Normal Inspection (+ Edema UE and LE ) Assessment and Plan - Assessment and Plan (Free Text) Assessment: A/P: 87 year old man with dementia, hydrocephalus s/p [employer] shunt, Respiratory failure with pleural effusions, lung injury, poor mental status, on Chronic TRACH/PEG, 2D echo images viewed by me: Moderate LV dysfunction, technically limited study due tachycardia during the study. EF 45%%, patient appears to be in afib CXR: B/L small-mod pleural effusions R>L This admission s/p IVCF and + RUE DVT Acute on chronic Diastolic CHF BP control Suggest IV lasix Afib chronic not a candidate for anticoagulation; ---> Rate control with diltiazem and BB titrate up as BP and HR tolerate. ---> Now s/p IVCF for LE DVT ---> + RUE DVT ---> Anemia and hx of GI bleed have prevented chronic anticoagulation MRSA bacteremia,sputum, nasal on ABX Cont current management and supportive care:
--- NOTE | 2017-12-18 17:51 | CP.PCM.PN ---
Subjective - Date & Time of Evaluation Date of Evaluation: 12/18/17 Time of Evaluation: 17:51 Objective - Vital Signs/Intake and Output Vital Signs (last 24 hours): Temp Pulse Resp BP Pulse Ox 98.2 F 139 H 20 116/45 L 98 12/18/17 16:00 12/18/17 16:00 12/18/17 16:00 12/18/17 16:00 12/18/17 16:00 Intake and Output: 12/18/17 12/18/17 06:59 18:59 Intake Total 900 Output Total 650 Balance 250 - Medications Medications: Current Medications Acetaminophen (Tylenol 650mg/20.3ml Solution Ud) 650 mg PO Q6 PRN PRN Reason: fever Ascorbic Acid (Vitamin C 500 Mg Tab) 500 mg GT DAILY [facility] Last Admin: 12/18/17 09:16 Dose: 500 mg Aspirin (Aspirin Chewable) 81 mg PO DAILY [facility] Last Admin: 12/08/17 09:55 Dose: 81 mg Bisacodyl (Dulcolax) 10 mg [place] HS PRN PRN Reason: Constipation Diltiazem HCl (Cardizem) 90 mg PO Q6H [facility] Last Admin: 12/18/17 15:51 Dose: 90 mg Famotidine (Pepcid) 20 mg IVP DAILY [facility] Last Admin: 12/18/17 10:58 Dose: Not Given Heparin Sodium (Porcine) (Heparin) 5,000 units SC Q8 [facility] Last Admin: 12/08/17 06:21 Dose: 5,000 units Linezolid (Zyvox 600mg/300ml D5w) 600 mg in 300 mls @ 200 mls/hr IVPB Q12 [facility] Last Admin: 12/18/17 09:17 Dose: 200 mls/hr Insulin Aspart (Novolog) 0 unit SC Q6 ANA PRN Reason: Protocol Last Admin: 12/18/17 13:04 Dose: 2 unit Insulin Detemir (Levemir) 10 unit SC HS [facility] Last Admin: 12/17/17 21:48 Dose: 10 unit Latanoprost (Xalatan Opht) 0 ml OU HS [facility] Last Admin: 12/17/17 21:51 Dose: 2.5 ml Metoclopramide HCl (Reglan) 5 mg GT 0600,1130,1630,2200 PRN PRN Reason: Constipation Metoprolol Tartrate (Lopressor) 25 mg PO BID [facility] Last Admin: 12/18/17 09:16 Dose: 25 mg Multivitamins/Vitamin C (Multi-Delyn Liquid) 5 ml PO DAILY [facility] Last Admin: 12/18/17 09:16 Dose: 5 ml Sennosides (Senokot Tab) 8.6 mg PO DAILY [facility] Last Admin: 12/18/17 09:18 Dose: Not Given - Labs Labs: 12/14/17 06:07 12/15/17 06:24 PT 13.1 SECONDS (9.7-12.2) H 12/09/17 01:33 INR 1.2 12/09/17 01:33 APTT 32 SECONDS (21-34) 12/09/17 01:33
--- NOTE | 2017-12-18 19:27 | CP.PCM.PN ---
Subjective - Date & Time of Evaluation Date of Evaluation: 12/18/17 Time of Evaluation: 16:00 - Subjective Subjective: clinically same Objective - Vital Signs/Intake and Output Vital Signs (last 24 hours): Temp Pulse Resp BP Pulse Ox 98.2 F 139 H 20 91/51 L 98 12/18/17 16:00 12/18/17 16:00 12/18/17 16:00 12/18/17 18:03 12/18/17 16:00 - Medications Medications: Current Medications Acetaminophen (Tylenol 650mg/20.3ml Solution Ud) 650 mg PO Q6 PRN PRN Reason: fever Ascorbic Acid (Vitamin C 500 Mg Tab) 500 mg GT DAILY [facility] Last Admin: 12/18/17 09:16 Dose: 500 mg Aspirin (Aspirin Chewable) 81 mg PO DAILY [facility] Last Admin: 12/08/17 09:55 Dose: 81 mg Bisacodyl (Dulcolax) 10 mg [place] HS PRN PRN Reason: Constipation Diltiazem HCl (Cardizem) 90 mg PO Q6H [facility] Last Admin: 12/18/17 15:51 Dose: 90 mg Famotidine (Pepcid) 20 mg IVP DAILY [facility] Last Admin: 12/18/17 10:58 Dose: Not Given Heparin Sodium (Porcine) (Heparin) 5,000 units SC Q8 [facility] Last Admin: 12/08/17 06:21 Dose: 5,000 units Linezolid (Zyvox 600mg/300ml D5w) 600 mg in 300 mls @ 200 mls/hr IVPB Q12 [facility] Last Admin: 12/18/17 09:17 Dose: 200 mls/hr Insulin Aspart (Novolog) 0 unit SC Q6 ANA PRN Reason: Protocol Last Admin: 12/18/17 18:05 Dose: 2 unit Insulin Detemir (Levemir) 10 unit SC HS [facility] Last Admin: 12/17/17 21:48 Dose: 10 unit Latanoprost (Xalatan Opht) 0 ml OU HS [facility] Last Admin: 12/17/17 21:51 Dose: 2.5 ml Metoclopramide HCl (Reglan) 5 mg GT 0600,1130,1630,2200 PRN PRN Reason: Constipation Metoprolol Tartrate (Lopressor) 25 mg PO BID [facility] Last Admin: 12/18/17 18:03 Dose: Not Given Multivitamins/Vitamin C (Multi-Delyn Liquid) 5 ml PO DAILY [facility] Last Admin: 12/18/17 09:16 Dose: 5 ml Sennosides (Senokot Tab) 8.6 mg PO DAILY [facility] Last Admin: 12/18/17 09:18 Dose: Not Given - Labs Labs: 12/14/17 06:07 12/15/17 06:24 PT 13.1 SECONDS (9.7-12.2) H 12/09/17 01:33 INR 1.2 12/09/17 01:33 APTT 32 SECONDS (21-34) 12/09/17 01:33 - Constitutional Appears: Well - Head Exam Head Exam: ATRAUMATIC, NORMAL INSPECTION, NORMOCEPHALIC - Eye Exam Eye Exam: EOMI, Normal appearance, PERRL Pupil Exam: NORMAL ACCOMODATION, PERRL - ENT Exam ENT Exam: Mucous Membranes Moist, Normal Exam - Neck Exam Neck Exam: Full ROM, Normal Inspection. absent: Lymphadenopathy - Respiratory Exam Respiratory Exam: Decreased Breath Sounds - Cardiovascular Exam Cardiovascular Exam: REGULAR RHYTHM, +S1, +S2 - GI/Abdominal Exam GI & Abdominal Exam: Soft, Diminished Bowel Sounds - Rectal Exam Rectal Exam: Deferred Assessment and Plan (1) Bandemia Status: Acute (2) Dyspnea Status: Acute (3) Fever Status: Acute (4) Lethargy Status: Acute (5) Sepsis Status: Acute (6) Contusion Status: Acute (7) Fall Status: Acute - Assessment and Plan (Free Text) Plan: discuss wiht agustin romano about discharge and pt s agreed ofr ltach posisble dischrage tomrrow to ltach carter as ordered id pulm cardio iv antibitic feeding med reviewed
[2017-12-18] MEDS: Insulin Detemir 100 units/ml Vial (Levemir) SC SCH (21:08)
[2017-12-18] MEDS: Latanoprost 2.5 ml Opht Soln OU SCH (21:14)
[2017-12-19 04:40] VITALS: O2SAT 99
[2017-12-19] MEDS: (Novolog) Insulin Aspart, Recombinant 100 u/ml 10 ml vial SC SCH ×4 (07:24→17:24)
[2017-12-19] MEDS: Multiple Vitamins Oral Solution PO SCH (09:44)
[2017-12-19] MEDS: Linezolid 600 mg in D5W 300 ml 600 MG/300 ML BAG IVPB SCH (09:47)
--- NOTE | 2017-12-19 10:19 | CP.PCM.PN ---
Subjective - Date & Time of Evaluation Date of Evaluation: 12/19/17 Time of Evaluation: 10:19 Objective - Vital Signs/Intake and Output Vital Signs (last 24 hours): Temp Pulse Resp BP Pulse Ox 97.7 F 139 H 24 111/71 99 12/19/17 07:52 12/19/17 07:52 12/19/17 07:52 12/19/17 09:49 12/19/17 07:52 Intake and Output: 12/19/17 12/19/17 06:59 18:59 Intake Total 1200 Output Total 400 Balance 800 - Medications Medications: Current Medications Acetaminophen (Tylenol 650mg/20.3ml Solution Ud) 650 mg PO Q6 PRN PRN Reason: fever Ascorbic Acid (Vitamin C 500 Mg Tab) 500 mg GT DAILY [facility] Last Admin: 12/19/17 09:45 Dose: 500 mg Aspirin (Aspirin Chewable) 81 mg PO DAILY [facility] Last Admin: 12/08/17 09:55 Dose: 81 mg Bisacodyl (Dulcolax) 10 mg [place] HS PRN PRN Reason: Constipation Diltiazem HCl (Cardizem) 90 mg PO Q6H [facility] Last Admin: 12/19/17 09:45 Dose: 90 mg Famotidine (Pepcid) 20 mg IVP DAILY [facility] Last Admin: 12/19/17 09:44 Dose: 20 mg Heparin Sodium (Porcine) (Heparin) 5,000 units SC Q8 [facility] Last Admin: 12/08/17 06:21 Dose: 5,000 units Linezolid (Zyvox 600mg/300ml D5w) 600 mg in 300 mls @ 200 mls/hr IVPB Q12 [facility] Last Admin: 12/19/17 09:47 Dose: 200 mls/hr Insulin Aspart (Novolog) 0 unit SC Q6 ANA PRN Reason: Protocol Last Admin: 12/19/17 07:24 Dose: 2 unit Insulin Detemir (Levemir) 10 unit SC HS [facility] Last Admin: 12/18/17 21:08 Dose: 10 unit Latanoprost (Xalatan Opht) 0 ml OU HS [facility] Last Admin: 12/18/17 21:14 Dose: 1 ml Metoclopramide HCl (Reglan) 5 mg GT 0600,1130,1630,2200 PRN PRN Reason: Constipation Last Admin: 12/19/17 09:45 Dose: 5 mg Metoprolol Tartrate (Lopressor) 25 mg PO BID [facility] Last Admin: 12/19/17 09:49 Dose: 25 mg Multivitamins/Vitamin C (Multi-Delyn Liquid) 5 ml PO DAILY [facility] Last Admin: 12/19/17 09:44 Dose: 5 ml Sennosides (Senokot Tab) 8.6 mg PO DAILY [facility] Last Admin: 12/19/17 09:44 Dose: 8.6 mg - Labs Labs: 12/14/17 06:07 12/15/17 06:24 PT 13.1 SECONDS (9.7-12.2) H 12/09/17 01:33 INR 1.2 12/09/17 01:33 APTT 32 SECONDS (21-34) 12/09/17 01:33
--- NOTE | 2017-12-19 11:52 | CP.PCM.PN ---
Subjective - Date & Time of Evaluation Date of Evaluation: 12/19/17 Time of Evaluation: 08:00 - Subjective Subjective: remains lethargic on iv rx Objective - Vital Signs/Intake and Output Vital Signs (last 24 hours): Temp Pulse Resp BP Pulse Ox 97.7 F 139 H 24 111/71 99 12/19/17 07:52 12/19/17 07:52 12/19/17 07:52 12/19/17 09:49 12/19/17 07:52 Intake and Output: 12/19/17 12/19/17 06:59 18:59 Intake Total 1200 Output Total 400 Balance 800 - Medications Medications: Current Medications Acetaminophen (Tylenol 650mg/20.3ml Solution Ud) 650 mg PO Q6 PRN PRN Reason: fever Ascorbic Acid (Vitamin C 500 Mg Tab) 500 mg GT DAILY [facility] Last Admin: 12/19/17 09:45 Dose: 500 mg Aspirin (Aspirin Chewable) 81 mg PO DAILY [facility] Last Admin: 12/08/17 09:55 Dose: 81 mg Bisacodyl (Dulcolax) 10 mg [place] HS PRN PRN Reason: Constipation Diltiazem HCl (Cardizem) 90 mg PO Q6H [facility] Last Admin: 12/19/17 09:45 Dose: 90 mg Famotidine (Pepcid) 20 mg IVP DAILY [facility] Last Admin: 12/19/17 09:44 Dose: 20 mg Heparin Sodium (Porcine) (Heparin) 5,000 units SC Q8 [facility] Last Admin: 12/08/17 06:21 Dose: 5,000 units Linezolid (Zyvox 600mg/300ml D5w) 600 mg in 300 mls @ 200 mls/hr IVPB Q12 [facility] Last Admin: 12/19/17 09:47 Dose: 200 mls/hr Insulin Aspart (Novolog) 0 unit SC Q6 ANA PRN Reason: Protocol Last Admin: 12/19/17 07:24 Dose: 2 unit Insulin Detemir (Levemir) 10 unit SC HS [facility] Last Admin: 12/18/17 21:08 Dose: 10 unit Latanoprost (Xalatan Opht) 0 ml OU HS [facility] Last Admin: 12/18/17 21:14 Dose: 1 ml Metoclopramide HCl (Reglan) 5 mg GT 0600,1130,1630,2200 PRN PRN Reason: Constipation Last Admin: 12/19/17 09:45 Dose: 5 mg Metoprolol Tartrate (Lopressor) 25 mg PO BID [facility] Last Admin: 12/19/17 09:49 Dose: 25 mg Multivitamins/Vitamin C (Multi-Delyn Liquid) 5 ml PO DAILY [facility] Last Admin: 12/19/17 09:44 Dose: 5 ml Sennosides (Senokot Tab) 8.6 mg PO DAILY [facility] Last Admin: 12/19/17 09:44 Dose: 8.6 mg - Labs Labs: 12/14/17 06:07 12/15/17 06:24 PT 13.1 SECONDS (9.7-12.2) H 12/09/17 01:33 INR 1.2 12/09/17 01:33 APTT 32 SECONDS (21-34) 12/09/17 01:33 - Constitutional Appears: Confused, Cachectic, Chronically Ill - Head Exam Head Exam: NORMOCEPHALIC - Eye Exam Eye Exam: PERRL. absent: Scleral icterus - ENT Exam ENT Exam: Mucous Membranes Dry - Neck Exam Neck Exam: absent: Lymphadenopathy - Respiratory Exam Respiratory Exam: Decreased Breath Sounds, Rhonchi - Cardiovascular Exam Cardiovascular Exam: REGULAR RHYTHM - GI/Abdominal Exam GI & Abdominal Exam: Distended, Soft - Rectal Exam Rectal Exam: Deferred - Exam Exam: NORMAL INSPECTION - Extremities Exam Extremities Exam: absent: Pedal Edema - Back Exam Back Exam: absent: CVA tenderness (L), CVA tenderness (R) Assessment and Plan (1) Respiratory failure Status: Acute (2) Pneumonia Status: Acute (3) Bandemia Status: Acute (4) Fever Status: Acute (5) Lethargy Status: Acute (6) Sepsis Status: Acute (7) Respiratory failure Status: Acute (8) Pneumonia Status: Acute
[2017-12-19 15:09] VITALS: RESP 19
--- NOTE | 2017-12-19 15:34 | CP.PCM.PN ---
Subjective - Date & Time of Evaluation Date of Evaluation: 12/19/17 Time of Evaluation: 15:34 - Subjective Subjective: PATIENT WAS ADMITTED FOR SEPSIS /LETHARGY AND DYSNEA PATIENT IS LETHARGIC BUT STABLE ON TRACH NO SIGN OF DISTRESS NOTED Objective - Vital Signs/Intake and Output Vital Signs (last 24 hours): Temp Pulse Resp BP Pulse Ox 98.5 F 76 19 111/71 99 12/19/17 12:00 12/19/17 12:00 12/19/17 12:00 12/19/17 12:00 12/19/17 12:00 Intake and Output: 12/19/17 12/19/17 06:59 18:59 Intake Total 1200 Output Total 400 Balance 800 - Medications Medications: Current Medications Acetaminophen (Tylenol 650mg/20.3ml Solution Ud) 650 mg PO Q6 PRN PRN Reason: fever Ascorbic Acid (Vitamin C 500 Mg Tab) 500 mg GT DAILY [facility] Last Admin: 12/19/17 09:45 Dose: 500 mg Aspirin (Aspirin Chewable) 81 mg PO DAILY [facility] Last Admin: 12/08/17 09:55 Dose: 81 mg Bisacodyl (Dulcolax) 10 mg [place] HS PRN PRN Reason: Constipation Diltiazem HCl (Cardizem) 90 mg PO Q6H [facility] Last Admin: 12/19/17 09:45 Dose: 90 mg Famotidine (Pepcid) 20 mg IVP DAILY [facility] Last Admin: 12/19/17 09:44 Dose: 20 mg Heparin Sodium (Porcine) (Heparin) 5,000 units SC Q8 [facility] Last Admin: 12/08/17 06:21 Dose: 5,000 units Linezolid (Zyvox 600mg/300ml D5w) 600 mg in 300 mls @ 200 mls/hr IVPB Q12 [facility] Last Admin: 12/19/17 09:47 Dose: 200 mls/hr Insulin Aspart (Novolog) 0 unit SC Q6 ANA PRN Reason: Protocol Last Admin: 12/19/17 12:12 Dose: 2 unit Insulin Detemir (Levemir) 10 unit SC HS [facility] Last Admin: 12/18/17 21:08 Dose: 10 unit Latanoprost (Xalatan Opht) 0 ml OU HS [facility] Last Admin: 12/18/17 21:14 Dose: 1 ml Metoclopramide HCl (Reglan) 5 mg GT 0600,1130,1630,2200 PRN PRN Reason: Constipation Last Admin: 12/19/17 09:45 Dose: 5 mg Metoprolol Tartrate (Lopressor) 25 mg PO BID [facility] Last Admin: 12/19/17 09:49 Dose: 25 mg Multivitamins/Vitamin C (Multi-Delyn Liquid) 5 ml PO DAILY [facility] Last Admin: 12/19/17 09:44 Dose: 5 ml Sennosides (Senokot Tab) 8.6 mg PO DAILY [facility] Last Admin: 12/19/17 09:44 Dose: 8.6 mg - Labs Labs: 12/14/17 06:07 12/15/17 06:24 PT 13.1 SECONDS (9.7-12.2) H 12/09/17 01:33 INR 1.2 12/09/17 01:33 APTT 32 SECONDS (21-34) 12/09/17 01:33 Assessment and Plan - Assessment and Plan (Free Text) Assessment: PATIENT SEEN AND EXAMINED AT THE BED PATIENT VENTILAR SUP SETTING 450/30%/5/18 SATURATED 100 0N THE MONITOR PEG IN PALCE AND SECURE ; ADB SOFT NON DISTENDED POSITIVE BOWEL SOUND ALL QUADRANT IVC FILTER PLACE FOR DVT NOTED ROEL LOWER EXT AND UPPER RIGHT EXT DISCUSS WITH DR EDMOND WHO AGREE AND CLEAR PATIENT FOR DC PLACE UNDER THE SERVICE OF DR Priyanka EDMOND AT [facility]---CALL DR EDMOND FOR ADMITTING ORDER AT THE FACILITY DR Priyanka EDMOND WILL ORDER PICC LINE TO BE INSERTED CONTINUE HOME MEDICATION ORDER NEW PRESCRIPTION GIVEN CARDIZEM 90 MG PO Q6H METOPROLOL 25 MG PO BID LINEZOLID 600 MG IV Q12H FOR 6 WEEKS PEG TUBE AND TRACH CARE PER DR EDMOND AND FACILITY PROTOCOL TUBE FEEDING GLUCERNA 1.5 @ 50 ML/HR AND WATER FLUSH 250 ML Q4H VENT SETING 450/30%/5/AC18 ACTIVITY TOLERATED CALL DR Priyanka EDMOND FOR FURTHER ORDERS
[2017-12-19 16:39] VITALS: BP 117/72; PULSE 86; TEMP 97.8
--- NOTE | 2017-12-19 18:00 | CP.PCM.PN ---
Subjective - Date & Time of Evaluation Date of Evaluation: 12/19/17 Time of Evaluation: 11:30 - Subjective Subjective: clinically same Objective - Vital Signs/Intake and Output Vital Signs (last 24 hours): Temp Pulse Resp BP Pulse Ox 97.8 F 86 19 117/72 99 12/19/17 16:00 12/19/17 16:00 12/19/17 16:00 12/19/17 17:23 12/19/17 16:00 Intake and Output: 12/19/17 12/19/17 06:59 18:59 Intake Total 1200 Output Total 400 Balance 800 - Medications Medications: Current Medications Acetaminophen (Tylenol 650mg/20.3ml Solution Ud) 650 mg PO Q6 PRN PRN Reason: fever Ascorbic Acid (Vitamin C 500 Mg Tab) 500 mg GT DAILY [facility] Last Admin: 12/19/17 09:45 Dose: 500 mg Aspirin (Aspirin Chewable) 81 mg PO DAILY [facility] Last Admin: 12/08/17 09:55 Dose: 81 mg Bisacodyl (Dulcolax) 10 mg [place] HS PRN PRN Reason: Constipation Diltiazem HCl (Cardizem) 90 mg PO Q6H [facility] Last Admin: 12/19/17 16:32 Dose: 90 mg Famotidine (Pepcid) 20 mg IVP DAILY [facility] Last Admin: 12/19/17 09:44 Dose: 20 mg Heparin Sodium (Porcine) (Heparin) 5,000 units SC Q8 [facility] Last Admin: 12/08/17 06:21 Dose: 5,000 units Linezolid (Zyvox 600mg/300ml D5w) 600 mg in 300 mls @ 200 mls/hr IVPB Q12 [facility] Last Admin: 12/19/17 09:47 Dose: 200 mls/hr Insulin Aspart (Novolog) 0 unit SC Q6 [facility]NA PRN Reason: Protocol Last Admin: 12/19/17 17:24 Dose: 4 unit Insulin Detemir (Levemir) 10 unit SC HS [facility] Last Admin: 12/18/17 21:08 Dose: 10 unit Latanoprost (Xalatan Opht) 0 ml OU HS [facility] Last Admin: 12/18/17 21:14 Dose: 1 ml Metoclopramide HCl (Reglan) 5 mg GT 0600,1130,1630,2200 PRN PRN Reason: Constipation Last Admin: 12/19/17 09:45 Dose: 5 mg Metoprolol Tartrate (Lopressor) 25 mg PO BID [facility] Last Admin: 12/19/17 17:23 Dose: 25 mg Multivitamins/Vitamin C (Multi-Delyn Liquid) 5 ml PO DAILY [facility] Last Admin: 12/19/17 09:44 Dose: 5 ml Sennosides (Senokot Tab) 8.6 mg PO DAILY [facility] Last Admin: 12/19/17 09:44 Dose: 8.6 mg - Labs Labs: 12/14/17 06:07 12/15/17 06:24 PT 13.1 SECONDS (9.7-12.2) H 12/09/17 01:33 INR 1.2 12/09/17 01:33 APTT 32 SECONDS (21-34) 12/09/17 01:33 - Constitutional Appears: Well - Head Exam Head Exam: ATRAUMATIC, NORMAL INSPECTION, NORMOCEPHALIC - Eye Exam Eye Exam: EOMI, Normal appearance, PERRL Pupil Exam: NORMAL ACCOMODATION, PERRL - ENT Exam ENT Exam: Mucous Membranes Moist, Normal Exam - Neck Exam Neck Exam: Full ROM, Normal Inspection. absent: Lymphadenopathy - Respiratory Exam Respiratory Exam: Decreased Breath Sounds - Cardiovascular Exam Cardiovascular Exam: REGULAR RHYTHM, +S1, +S2 - GI/Abdominal Exam GI & Abdominal Exam: Soft, Diminished Bowel Sounds - Rectal Exam Rectal Exam: Deferred Assessment and Plan (1) Bandemia Status: Acute (2) Dyspnea Status: Acute (3) Fever Status: Acute (4) Lethargy Status: Acute (5) Sepsis Status: Acute (6) Contusion Status: Acute (7) Fall Status: Acute
--- NOTE | 2017-12-21 09:50 | EEG ---
DATE: Technical Information: Electrodes were placed according to the 10-20 [employer] electrode system by interventional technologist. Total of 23 electrodes (21 EEG and 2 EKG) were placed. EEG activity was digitally recorded referentially to P1/P2 or A1/A2 electrodes. Continuous monitoring with EEG was performed using digital analysis for spike detection. The [employer] spike and seizure detection algorithms were used for digital EEG analysis throughout the monitoring period to screen the EEG in real-time and felicitas the data file with pointers to electrographic seizures and interictal discharges. EEG was screened for electrographic seizures and interictal discharges by a technologist. Physician, epileptologist reviewed detections as well as extensive random samples and whole EEG study in detail. Digital EEG Analysis: Was carried out including FFT (Fast Fourier Transform), R2D2 (Rhythmicity Run Detection and Display), Relative Asymmetry Spectrogram, and voltage plot by the [employer] Software. The qualitative EEG analysis and the voltage plot mapping were used for detection of foci of paroxysmal and abnormal electrical cortical activity. General Description: Background Rhythm: There is a well-formed, 8-10 Hz posterior dominant rhythm that is reactive, symmetric, and attenuates with eye opening. There was a normal amount of frontal beta noted bilaterally. There is no sleep recorded. Activation Procedures: Photic stimulation: There is no driving noted. Hyperventilation: There is slowing noted that is self-remitted. Abnormal Activity: There are no focal epileptiform discharges noted. No clinical or subclinical seizures noted. Impression: This is a normal awake and drowsy EEG. Clinical correlation is required. Tulio Patricio MD
== END 2017-12-19 18:16 | DRG 3 ==
LOC: C.ER 10:18 → C.9E 14:59 → C.9I 14:59
PROVIDERS: ADMIT Internal Medicine Nephrology; ATTEND Internal Medicine Nephrology
PROC: 5A1955Z Respiratory Ventilation, Greater than 96 Consecutive Hours (ICD-10-PCS; 2017-12-01)
PROC: 4A143B0 Monitoring of Venous Pressure, Central, Percutaneous Approach (ICD-10-PCS; 2017-12-01)
PROC: 0BH17EZ Insertion of Endotracheal Airway into Trachea, Via Natural or Artificial Opening (ICD-10-PCS; 2017-12-01)
PROC: 009U3ZX Drainage of Spinal Canal, Percutaneous Approach, Diagnostic (ICD-10-PCS; 2017-12-02)
PROC: 4A143B0 Monitoring of Venous Pressure, Central, Percutaneous Approach (ICD-10-PCS; 2017-12-03)
PROC: 0BJ08ZZ Inspection of Tracheobronchial Tree, Via Natural or Artificial Opening Endoscopic (ICD-10-PCS; 2017-12-09)
PROC: 0B113F4 Bypass Trachea to Cutaneous with Tracheostomy Device, Percutaneous Approach (ICD-10-PCS; principal; 2017-12-09 09:00)
PROC: 06H03DZ Insertion of Intraluminal Device into Inferior Vena Cava, Percutaneous Approach (ICD-10-PCS; 2017-12-09 09:00)
DX: A41.9 Sepsis, unspecified organism (principal); J69.0 Pneumonitis due to inhalation of food and vomit; I50.33 Acute on chronic diastolic (congestive) heart failure; G91.9 Hydrocephalus, unspecified; I82.403 Acute embolism and thrombosis of unspecified deep veins of lower extremity, bilateral; N17.9 Acute kidney failure, unspecified; K92.2 Gastrointestinal hemorrhage, unspecified; J96.91 Respiratory failure, unspecified with hypoxia; Z99.11 Dependence on respirator [ventilator] status; E87.0 Hyperosmolality and hypernatremia; I82.811 Embolism and thrombosis of superficial veins of right lower extremity; I82.621 Acute embolism and thrombosis of deep veins of right upper extremity; E11.36 Type 2 diabetes mellitus with diabetic cataract; I11.0 Hypertensive heart disease with heart failure; F03.90 Unspecified dementia, unspecified severity, without behavioral disturbance, psychotic disturbance, mood disturbance, and anxiety; D18.1 Lymphangioma, any site; B95.62 Methicillin resistant Staphylococcus aureus infection as the cause of diseases classified elsewhere; E87.6 Hypokalemia; I48.2 Chronic atrial fibrillation; Z51.5 Encounter for palliative care; Z88.0 Allergy status to penicillin; Z93.1 Gastrostomy status; Z98.2 Presence of cerebrospinal fluid drainage device; Z79.01 Long term (current) use of anticoagulants